=== PATIENT | female | born 1950 | race Caucasian/White ===

== ENCOUNTER 2016-07-01 14:20 | Emergency (ER) | payer MEDICARE ==
[~2016-07-01] VITALS: Ht 149.9 cm; Wt 83.9 kg
[~2016-07-01 14:20] MED LIST: ACYC800T PO; ALBU8.5H2 IH; AMOX1TAB63 PO; BSP10T PO; CEFU250T PO; CHOLESTEROL; COZAAR PO; CPR500T PO; CYCL10TA9 PO; DOXY100C2; DOXY100C2 PO; DUONEB INH; EZET1TAB15 PO; FLUT1DIS27 IH; HYDR-1231 PO; HYDR-34 PO; HYDR-757 PO; HYDR1TAB PO; HYDR1TAB8 OP; IPRA3AMP19 IH; IRBE75TA31; LACT1CAP8 PO; LEVO750T6 PO; LISI-594 PO; LISINOPRIL PO; LVF500T PO; METF-380 PO; METF500T4 PO; METH4TAB PO; METR500T PO; MNTL10T PO; MPR22T TOP; MTF500T; MTF500T PO; PIRO-9; POLY17PO23 PO; PRD10T PO; PRD20T PO; PREMARIN; RABE20TA PO; RT-COMBINH INH; SERT100T PO; SERT100T8 PO; SITA1TAB6 PO; SRTR100T PO; TRAM50TA2 PO
--- OUTSIDE RECORDS SUMMARY | 2016-07-01 14:26 | XMS REPORT | Continuity of Care Document ---
Author Author [facility] Organization [facility] Address Unknown Phone Unavailable Care Team Providers Care Rotating Equipment Specialist Name Role Phone Dp, [facility] PCP [phone] Source Comments Some departments are not documenting in the electronic medical record. If you do not see the information that you expected, contact Release of Information in the Health Information Management department at [phone] for further assistance in locating additional records.[facility] Active Allergies and Adverse Reactions Allergen Noted Date Severity Reactions Comments Aspirin 11/16/2009 Sulfa (Sulfonamide 11/16/2009 Antibiotics) Current Medications Prescription Sig. Disp. Refills Start End Date Status Date SERTRALINE HCL (ZOLOFT Take 200 mg by mouth. Active PO) FLUTICASONE/SALMETEROL Inhale 50 mcg by mouth Active (ADVAIR DISKUS IN) Twice Daily. SITAGLIPTIN Take 500 mg by mouth. Active PHOS/METFORMIN HCL (JANUMET PO) losartan (COZAAR) 25 mg Take 100 mg by mouth Active tablet Daily. montelukast (SINGULAIR) Take 1 Tab by mouth Daily 30 Tab 0 11/20/19 Active 10 mg tablet as needed. as directed 10 lisinopril (PRINIVIL; Take 1 Tab by mouth 30 Tab 0 11/20/19 Active ZESTRIL) 20 mg tablet Daily. 10 Active Problems Problem Noted Date Adjustment disorder with depressed mood 11/19/2009 Major depression, recurrent (HCC) 11/19/2009 Social History Tobacco Use Types Packs/Day Years Used Date Never Smoker Alcohol Use Drinks/Week oz/Week Comments No Last Filed Vital Signs Vital Sign Reading Time Taken Blood Pressure 136/79 02/23/2014 2:06 PM CDT Pulse 77 02/23/2014 2:06 PM CDT Temperature 37.1 C (98.8 F) 02/23/2014 2:06 PM CDT Respiratory Rate - - Height 1.499 m (4' 11") 11/16/2009 9:15 PM CDT Weight 92.08 kg (203 lb) 11/16/2009 9:15 PM CDT Body Mass Index 40.98 11/16/2009 9:15 PM CDT Oxygen Saturation 96% 02/23/2014 2:28 PM CDT Plan of Care Health Maintenance Due Date Last Done Comments Physical (Comprehensive) 02/05/1956 Exam Pertussis Vaccine 02/05/1960 Tetanus Vaccine 1966 Breast Cancer Screening 1989 Colorectal Cancer 1999 Screening Shingles Vaccine 2009 Osteoporosis Screening 2014 Prevnar/Pneumovax (#1) 2014 Influenza Vaccine 02/13/2016 Results from Last 3 Months Not on file
[2016-07-01] MEDS ORDERED: METO-333 (14:43)
[2016-07-01] MEDS ORDERED: PRIM50TA (14:43)
[2016-07-01] MEDS ORDERED: DOXA8TAB73 (14:43)
[2016-07-01] MEDS ORDERED: LOSA1TAB69 (14:43)
--- NOTE | 2016-07-01 15:04 | ED Cough/URI ---
General Chief Complaint: Cough/Cold/Flu Symptoms Stated Complaint: FLU SYMPTOMS Nursing Triage Note: PT TO ED 9 W/ C/O FLU LIKE SYMPTOMS ONSET 06/26, WORSE TODAY. NO OTHER C/O VOICED Source: patient Exam Limitations: no limitations History of Present Illness Time seen by provider: 15:03 Initial Comments 66-year-old female patient presents to the emergency department for complaints of flulike symptoms beginning 06/26/16. Patient reports over the last 1-2 days she has noticed increased cough, rhinorrhea, sneezing, watery eyes, body aches, and increased generalized malaise. Does report intermittent nausea and vomiting. Denies diarrhea, abdominal pain, urinary symptoms. Woke up with 2 fever blisters on the lower lip. Timing/Duration: getting worse, other (06/26/16) Severity/Quality: productive cough Prior Episodes/Possible Cause: no prior episodes Modifying Factors: Worse With Coughing Allergies and Home Medications Allergies Coded Allergies: aspirin (Unverified Allergy, Mild, 04/01/09) Uncoded Allergies: [id number] (SULFA (SULFONAMIDE ANTIBIOTICS)) (Allergy, Mild, 04/01/09) Home Medications Acyclovir 400 Mg Tablet #30 400 MG PO TID x7-10 days Prescribed by: GABY NOLAN on 07/01/16 1620 Doxazosin Mesylate 8 Mg Tablet #90 (Reported) Fluconazole 100 Mg Tablet #7 100 MG PO DAILY Prescribed by: GABY NOLAN on 07/01/16 1609 Losartan/Hydrochlorothiazide 1 Each Tablet #90 (Reported) Metoprolol Tartrate 25 Mg Tablet #90 (Reported) Ondansetron 8 Mg Tab.rapdis #10 8 MG PO Q6H PRN PRN NAUSEA/VOMITING Prescribed by: GABY NOLAN on 07/01/16 1609 Oseltamivir Phosphate 75 Mg Cap #10 75 MG PO BID Prescribed by: GABY NOLAN on 07/01/16 1609 Primidone 50 Mg Tablet #90 (Reported) Promethazine HCl/Codeine 118 Ml Syrup #120 5 ML PO Q6H PRN PRN COUGH Prescribed by: GABY NOLAN on 07/01/16 1609 Constitutional: see HPI chillsNo fever, malaise EENTM: nose congestion see HPI tearingNo throat pain Respiratory: coughNo orthopnea, phlegmNo short of breath, No stridor, No wheezing Cardiovascular: no symptoms reported Gastrointestinal: see HPINo abdominal pain, No constipation, No diarrhea, loss of appetite nausea vomiting Genitourinary: No decreased output, No discharge, No dysuria, No frequency, No hematuria, No pain Musculoskeletal: see HPI Skin: no symptoms reported Psychiatric/Neurological: No Symptoms Reported All Other Systems Reviewed Negative Unless Noted: Yes (Negative excepted noted.) Past Ozxuips-Ayptmm-Muigog Hx Patient Social History Alcohol Use: Denies Use Recreational Drug Use: No Smoking Status: Never a Smoker Recent Foreign Travel: No Contact w/Someone Who Travel: No Recent Infectious Disease Expo: No Recent Hopitalizations: Yes (RAN OVER BY AUTO AT AGE 3 -- ) Physical Abuse Screen: No Sexual Abuse: No Immunizations Up To Date Date of Pneumonia Vaccine: Mar 17, 2010 Surgeries HX Surgeries: Yes (SPLEENECTOMY, LUMPECTOMY R-BREAST) Surgeries: Gallbladder, Hysterectomy, Orthopedic Respiratory Hx Respiratory Disorders: Yes Respiratory Disorders: COPD, Emphysema Cardiovascular Hx Cardiac Disorders: Yes (TOOK REDUX, SETTLED CASE STATED THAT PT. HAD MITRAL VALVE LEAKAGE) Neurological Hx Neurological Disorders: No Genitourinary Hx Genitourinary Disorders: Yes Genitourinary Disorders: UTI-Chronic Gastrointestinal Hx Gastrointestinal Disorders: No Musculoskeletal Hx Musculoskeletal Disorders: Yes Musculoskeletal Disorders: Arthritis Endocrine Hx Endocrine Disorders: Yes Endocrine Disorders: Diabetes, Non-Insulin dep HEENT HX ENT Disorders: No Cancer Hx Cancer: No Psychosocial Hx Psychiatric Problems: Yes Behavioral Health Disorders: Anxiety, PTSD, Depression Integumentary HX Skin/Integumentary Disorder: No Skin/Integumentary Disorders: Recent Skin Changes Blood Transfusions Hx Blood Disorders: No Adverse Reaction to a Blood Tr: Yes (HAD "BLOTHCHES ALL OVER") Reviewed Nursing Assessment Reviewed/Agree w Nursing PMH: Yes Family Medical History Significant Family History: No Pertinent Family Hx Physical Exam Vital Signs Vital Sign - Last 12Hours 07/01/16 14:32 Temp 97.2 Pulse 84 Resp 20 B/P 150/87 Pulse Ox 96 O2 Delivery Room Air Capillary Refill : Less Than 3 Seconds General Appearance: WD/WN no apparent distress HEENT: pharyngeal erythema other (bilateral conjunctiva injected, tearing bilaterally, nasal congestion, rhinorrhea, and pharyngeal erythema.) Neck: non-tender full range of motion supple lymphadenopathy (R) lymphadenopathy (L) Respiratory: no respiratory distress wheezing (occasional faint wheezing on expiration (patient states "I normally wheeze really bad. I have COPD and emphysema") expiration Cardiovascular: regular rate, rhythm no edema no murmur Gastrointestinal: normal bowel sounds non tender soft no organomegalyNo distended Extremities: no pedal edema no calf tenderness normal capillary refill Neurologic/Psychiatric: alert normal mood/affect oriented x 3 Skin: normal color warm/dry Progress/Results/Core Measures Results/Orders Lab Results Laboratory Tests Test 07/01/16 15:24 Range/Units Urine Bacteria FEW H /HPF Urine Bilirubin NEGATIVE NEGATIVE Urine Casts NONE /LPF Urine Clarity VERY CLOUDY H Urine Color YELLOW Urine Crystals NONE /LPF Urine Culture Indicated NO Urine Glucose (UA) 2+ H NEGATIVE Urine Ketones 3+ H NEGATIVE Urine Leukocyte Esterase 3+ H NEGATIVE Urine Mucus NEGATIVE /LPF Urine Nitrite NEGATIVE NEGATIVE Urine Protein 2+ H NEGATIVE Urine RBC NONE /HPF Urine RBC (Auto) 1+ H NEGATIVE Urine Specific [place] 1.025 H 1.016-1.022 Urine Squamous Epithelial Cells >50 H /HPF Urine Urobilinogen 1 NORMAL MG/DL Urine WBC 25-50 H /HPF Urine Yeast LARGE H /HPF Urine pH 5 5-9 Micro Results Microbiology 07/01/16 Influenza Types A,B Antigen (JORGITO) - Final, Complete My Orders Orders-GABY NOLAN Ua Culture If Indicated (07/01/16 15:13) Promethazine/ Codeine Syrup (Phenergan W (07/01/16 15:13) Vital Signs/I&O Vital Sign - Last 12Hours 07/01/16 14:32 Temp 97.2 Pulse 84 Resp 20 B/P 150/87 Pulse Ox 96 O2 Delivery Room Air Blood Pressure Mean: 108 Departure Communication Progress Notes Laboratory and diagnostic study findings discussed with the patient. Patient reports feeling much better with medications given. Plan for discharge to home. Patient instructed to follow-up with her primary care physician at [facility] this week for recheck. She is to call for appointment time. All return precautions were discussed with the patient as described in the discharge instructions of this report. Patient voices understanding and agrees with the treatment plan. Impression Impression: Primary Impression: Influenza-like symptoms Additional Impressions: Marisa UTI Dehydration Herpes simplex virus infection Disposition: 01 HOME, SELF-CARE Condition: Improved Departure-Patient Inst. Decision time for Depature: 16:04 Referrals: [facility] (PCP/Family) Primary Care Physician Patient Instructions: Dehydration, Adult (DC), Flu, Adult (DC) Add. Discharge Instructions: All discharge instructions reviewed with patient and/or family. Voiced understanding. Medications as directed. Tylenol over the counter as directed for pain or fever. Motrin 800 mg by mouth every 8 hours as needed for pain or fever. Push fluids. Clear liquid diet until symptoms improve, then increase diet slowly to a bland, low-fat diet. Follow-up with your family practitioner this week for recheck. Call tomorrow morning for appointment time. Return to the emergency department for worsened cough, pain, shortness of air, dizziness, vomiting, vomiting blood, rectal bleeding, black stools, decreased urination, fever, or any other concerns. Scripts Acyclovir 400 Mg [id number] Mg PO TID #30 TAB Ref 0 x7-10 days Prov:GABY NOLAN 07/01/16 Promethazine HCl/Codeine (Promethazine-Codeine Syrup)118 Ml Syrup5 Ml PO Q6H PRN COUGH #120 ML Ref 0 Prov:GABY NOLAN 07/01/16 Fluconazole 100 Mg [id number] Mg PO DAILY #7 TAB Ref 0 Prov:GABY NOLAN 07/01/16 Oseltamivir Phosphate (Tamiflu)75 Mg Cap75 Mg PO BID #10 CAP Ref 0 Prov:GABY NOLAN 07/01/16 Ondansetron (Ondansetron Odt)8 Mg Tab.rapdis8 Mg PO Q6H PRN NAUSEA/VOMITING #10 TAB Ref 0 Prov:GABY NOLAN 07/01/16 GABY NOLAN Jul 01, 2016 15:04
[2016-07-01] MEDS ORDERED: PROMETHAZINE/ CODEINE SYRUP 5 ML UDC PO STA (15:13)
[2016-07-01 15:42] LABS: BILIRUBIN,URINE NEGATIVE (NEGATIVE); KETONES,URINE 3+ (NEGATIVE); LEUKOCYTE ESTERASE ,URINE 3+ (NEGATIVE); NITRITE,URINE NEGATIVE (NEGATIVE); PH,URINE 5 (5-9); PROTEIN,URINE 2+ (NEGATIVE); UROBILINOGEN,URINE 1 MG/DL (NORMAL)
[2016-07-01 15:57] LABS: SQUAMOUS EPITHELIAL CELL,UR >50 /HPF; WBC,URINE 25-50 /HPF
[2016-07-01 15:58] LABS: YEAST,URINE LARGE /HPF
[2016-07-01] MEDS ORDERED: ONDA8TAB13 PO (16:09)
[2016-07-01] MEDS ORDERED: OSLT75C PO (16:09)
[2016-07-01] MEDS ORDERED: FLUC100T6 PO (16:09)
[2016-07-01] MEDS ORDERED: CODE118S2 PO (16:09)
[2016-07-01 16:20] VITALS: BP 147/85
[2016-07-01] MEDS ORDERED: ACYC400T PO (16:20)
== END 2016-07-01 16:20 | disposition home or self-care (01) ==
LOC: EDUNIT# 14:20 → ER 14:22
DX: J11.1 Influenza due to unidentified influenza virus with other respiratory manifestations (principal); B37.41 Candidal cystitis and urethritis; E86.0 Dehydration; B00.9 Herpesviral infection, unspecified; I10 Essential (primary) hypertension; E11.9 Type 2 diabetes mellitus without complications; J44.9 Chronic obstructive pulmonary disease, unspecified; Z79.899 Other long term (current) drug therapy
CPT/HCPCS: 81000; 87804; 99283

== ENCOUNTER → 2016-11-12 | Outpatient (CLI) | payer MEDICARE ==
[~2016-11-12] MED LIST changes: +ACYC400T PO; +CODE118S2 PO; +DOXA8TAB73; +FLUC100T6 PO; +LOSA1TAB69; +METO-333; +ONDA8TAB13 PO; +OSLT75C PO; +PRIM50TA
[2016-11-12 12:16] LABS: BASOPHILS # (AUTO) 0.1 10^3/uL (0.0-0.1); BASOPHILS % (AUTO) 1 % (0-10); EOSINOPHILS # (AUTO) 0.6 10^3/uL (0.0-0.3); EOSINOPHILS % (AUTO) 7 % (0-10); LYMPHOCYTES # (AUTO) 3.5 X 10^3 (1.0-4.0); LYMPHOCYTES % (AUTO) 40 % (12-44); MEAN CORPUSCULAR HEMOGLOBIN 28 PG (25-34); MEAN CORPUSCULAR HGB CONC 33 G/DL (32-36); MEAN CORPUSCULAR VOLUME 85 FL (80-99); MEAN PLATELET VOLUME 10.9 FL (7.4-10.4); MONOCYTES # (AUTO) 0.6 X 10^3 (0.0-1.0); MONOCYTES % (AUTO) 7 % (0-12); NEUTROPHILS % (AUTO) 45 % (42-75); PLATELET COUNT 283 10^3/uL (130-400); RED BLOOD COUNT 5.24 10^6/uL (4.35-5.85); RED CELL DISTRIBUTION WIDTH 12.9 % (10.0-14.5); WHITE BLOOD COUNT 8.8 10^3/uL (4.3-11.0)
[2016-11-12 12:44] LABS: ALBUMIN 4.2 G/DL (3.2-4.5); BILIRUBIN,TOTAL 0.8 MG/DL (0.1-1.0); CALCIUM 9.5 MG/DL (8.5-10.1); CREATININE SERUM 1.03 MG/DL (0.60-1.30); MAGNESIUM 1.9 MG/DL (1.8-2.4); TOTAL PROTEIN 7.8 G/DL (6.4-8.2)
[2016-11-12 12:54] LABS: ERYTHROCYTE SEDIMENTATION RATE 16 MM/HR (0-30)
[2016-11-12 13:03] LABS: THYROID STIMULATING HORMONE 1.73 UIU/ML (0.35-4.94)
== END ==
LOC: LAB 11:49
PROVIDERS: ATTEND Internal Medicine Cardiovascular Disease
DX: R07.89 Other chest pain (principal); R55 Syncope and collapse; R06.02 Shortness of breath
CPT/HCPCS: 36415; 80053; 80061; 83735; 84443; 85025; 85652

== ENCOUNTER → 2016-11-17 | Outpatient (CLI) | payer MEDICARE ==
[2016-11-17] VITALS (39 sets, daily range): BP systolic 114–147; BP diastolic 67–90
[~2016-11-17] VITALS: Ht 149.9 cm; Wt 77.1 kg
[~2016-11-17] MED LIST changes: +ATROPINE INJECTION 1 MG/10 ML SYR (ABBOTT) ONE; +NS IV 1000 ML 1,000 ML IV SCH; +NS IV 1000 ML 1,000 ML ONE
== END ==
LOC: CARD 07:57
PROVIDERS: ATTEND Nurse Practitioner Family
DX: I20.9 Angina pectoris, unspecified (principal); R42 Dizziness and giddiness; R55 Syncope and collapse; R53.83 Other fatigue; R06.02 Shortness of breath
CPT/HCPCS: 93660

== ENCOUNTER → 2016-11-19 | Outpatient (CLI) | payer MEDICARE ==
[~2016-11-19] VITALS: Ht 149.9 cm; Wt 77.1 kg
[~2016-11-19] MED LIST changes: -ATROPINE INJECTION 1 MG/10 ML SYR (ABBOTT) ONE; -NS IV 1000 ML 1,000 ML IV SCH; -NS IV 1000 ML 1,000 ML ONE; +REGADENOSON 0.4 MG/5 ML SYR (LEXISCAN) IV ONE
[2016-11-19] MEDS: CATHETER FLUSH 10 ML SYR IV PRN ×2 (08:04→09:08)
[2016-11-19 09:07] VITALS: BP 143/90
--- NOTE | 2016-11-19 18:40 | STRESS TEST ---
DATE OF SERVICE: 11/19/2016 RESTING AND POST REGADENOSON TECHNETIUM 99M TETROFOSMIN SPECT CT IMAGING ORDERING PHYSICIAN: Dr. Tejada. PRIMARY PHYSICIAN: ILIA Kim CLINICAL DIAGNOSIS: Near syncope, chest discomfort, shortness of breath. Baseline images were carried out after injection of 10.63 mCi of technetium 99m tetrofosmin. This was followed by 0.4 mg regadenoson and 32.2 mCi of technetium 99m Tetrofosmin for stress imaging. The electrocardiogram showed sinus rhythm, and the electrocardiogram did not change significantly with the regadenoson infusion. The patient tolerated the procedure well. Review of images at rest and following stress does not indicate any significant perfusion defects consistent with any significant myocardial ischemia or infarction. Gated images show normal global left ventricular systolic function with normal regional wall motion. Left ventricular ejection fraction is calculated to be 63%. Left ventricular end-diastolic volume is 42 mL. CONCLUSIONS: 1. No evidence of significant myocardial ischemia or infarction on this study. 2. Normal regional wall motion. 3. Normal global left ventricular systolic function with a calculated ejection fraction of 63%. 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
== END ==
LOC: CARD 07:52
PROVIDERS: ATTEND Internal Medicine Cardiovascular Disease
DX: R55 Syncope and collapse (principal); R07.89 Other chest pain; R06.02 Shortness of breath
CPT/HCPCS: 78452; 93017

== ENCOUNTER → 2016-11-24 | Outpatient (CLI) | payer MEDICARE ==
[~2016-11-24] MED LIST changes: -REGADENOSON 0.4 MG/5 ML SYR (LEXISCAN) IV ONE
== END ==
LOC: CARD 11:51
PROVIDERS: ATTEND Internal Medicine Cardiovascular Disease
DX: R06.02 Shortness of breath (principal); R07.89 Other chest pain; R55 Syncope and collapse
CPT/HCPCS: 93306

== ENCOUNTER 2018-02-20 10:01 | Emergency (ER) | payer MEDICARE ==
[~2018-02-20] VITALS: Ht 149.9 cm; Wt 86.2 kg
[~2018-02-20 10:01] MED LIST changes: -CODE118S2 PO; +CODE118S4 PO; +HYDR-4226 PO; -HYDR-757 PO; +LOSA1TAB20; -LOSA1TAB69; +METF-397 PO; -METF500T4 PO
[2018-02-20 10:27] LABS: BILIRUBIN,URINE NEGATIVE (NEGATIVE); CLARITY,URINE VERY CLOUDY; COLOR,URINE YELLOW; GLUCOSE, URINE (UA) NEGATIVE (NEGATIVE); KETONES,URINE 1+ (NEGATIVE); LEUKOCYTE ESTERASE ,URINE 3+ (NEGATIVE); NITRITE,URINE NEGATIVE (NEGATIVE); PH,URINE 5 (5-9); PROTEIN,URINE 2+ (NEGATIVE); UROBILINOGEN,URINE NORMAL (NORMAL)
--- NOTE | 2018-02-20 10:38 | ED Back Pain ---
General Chief Complaint: Back Problems Stated Complaint: BACK PAIN Source of Information: Patient, Family Exam Limitations: Other (Hx Alzheimer's) History of Present Illness Date Seen by Provider: Feb 20, 2018 Time Seen by Provider: 10:30 Initial Comments Patient presents to ER by private conveyance with chief complaint of one to 2 days progressively worsening back pain on her low thoracic back. Doesn't localize to one side 80 other nor does it radiate. It is worse with movement better with a hydrocodone she borrowed from her . Tylenol Motrin don't help. She has a history of COPD and has a nebulizer but she's not been using breathing treatments recently. She does not feel short of breath wheezing or having more productive cough and usual. She does smoke. Allergies and Home Medications Allergies Coded Allergies: aspirin (Unverified Allergy, Mild, 04/01/09) Uncoded Allergies: [id number] (SULFA (SULFONAMIDE ANTIBIOTICS)) (Allergy, Mild, 04/01/09) Home Medications Acyclovir 400 Mg Tablet, 400 MG PO TID x7-10 days Prescribed by: GABY NOLAN on 07/01/16 1620 Fluconazole 100 Mg Tablet, 100 MG PO DAILY Prescribed by: GABY NOLAN on 07/01/16 1609 Ondansetron 8 Mg Tab.rapdis, 8 MG PO Q6H PRN for NAUSEA/VOMITING Prescribed by: GABY NOLAN on 07/01/16 1609 Oseltamivir Phosphate 75 Mg Cap, 75 MG PO BID Prescribed by: GABY NOLAN on 07/01/16 1609 Promethazine HCl/Codeine 118 Ml Syrup, 5 ML PO Q6H PRN for COUGH Prescribed by: GABY NOLAN on 07/01/16 1609 Patient Home Medication List Home Medication List Reviewed: Yes Review of Systems Constitutional: No chills, No diaphoresis EENTM: No ear pain, No blurred vision Respiratory: No cough, No short of breath Cardiovascular: No chest pain, No palpitations Gastrointestinal: No abdominal pain, No constipation, No nausea Genitourinary: No discharge; dysuria Musculoskeletal: see HPI, back pain Skin: No pruritus, No rash Past Uuvdyvc-Gqnetg-Xewfar Hx Patient Social History Recent Foreign Travel: No Contact w/Someone Who Travel: No Recent Hopitalizations: Yes (RAN OVER BY AUTO AT AGE 3 -- ) Immunizations Up To Date Date of Pneumonia Vaccine: Mar 17, 2010 Past Medical History Gallbladder, Hysterectomy, Orthopedic Asthma UTI-Chronic Arthritis Diabetes, Non-Insulin dep Anxiety, PTSD, Depression Recent Skin Changes Adverse Reaction/Blood Tranf: Yes (HAD "BLOTHCHES ALL OVER") Family Medical History No Pertinent Family Hx Physical Exam Vital Signs Vital Signs - First Documented 02/20/18 11:07 Temp 98.9 Pulse 77 Resp 20 B/P (MAP) 144/93 (110) Pulse Ox 96 O2 Delivery Room Air Capillary Refill : Height, Weight, BMI Height: 4'11.00" Weight: 170lbs. 0.0oz. 77.994759oz; 34.3 BMI Method:Stated General Appearance: No Apparent Distress, WD/WN HEENT: PERRL/EOMI, Pharynx Normal, Moist Mucous Membranes Cardiovascular: Regular Rate, Rhythm, Normal Peripheral Pulses Respiratory: No Accessory Muscle Use, No Respiratory Distress Back: Normal Inspection, No CVA Tenderness, No Vertebral Tenderness Extremity: Normal Capillary Refill, Normal Inspection Neurologic/Psychiatric: Alert, Oriented x3 Progress/Results/Core Measures Results/Orders Lab Results Laboratory Tests Test 02/20/18 10:00 02/20/18 11:06 02/20/18 11:20 Range/Units Urine Color YELLOW YELLOW Urine Clarity VERY CLOUDY H VERY CLOUDY H Urine pH 5 5 5-9 Urine Specific [place] 1.025 H 1.025 H 1.016-1.022 Urine Protein 2+ H 1+ H NEGATIVE Urine Glucose (UA) NEGATIVE NEGATIVE NEGATIVE Urine Ketones 1+ H 1+ H NEGATIVE Urine Nitrite NEGATIVE NEGATIVE NEGATIVE Urine Bilirubin NEGATIVE NEGATIVE NEGATIVE Urine Urobilinogen NORMAL NORMAL NORMAL MG/DL Urine Leukocyte Esterase 3+ H 2+ H NEGATIVE Urine RBC (Auto) 2+ H 1+ H NEGATIVE Urine RBC 0-2 0-2 /HPF Urine WBC 25-50 H 10-25 H /HPF Urine Squamous Epithelial Cells 10-25 H 2-5 /HPF Urine Crystals NONE NONE /LPF Urine Bacteria LARGE H NEGATIVE /HPF Urine Casts NONE NONE /LPF Urine Mucus NEGATIVE SMALL H /LPF Urine Culture Indicated YES YES White Blood Count 8.2 4.3-11.0 10^3/uL Red Blood Count 4.51 4.35-5.85 10^6/uL Hemoglobin 13.3 11.5-16.0 G/DL Hematocrit 41 35-52 % Mean Corpuscular Volume 92 80-99 FL Mean Corpuscular Hemoglobin 30 25-34 PG Mean Corpuscular Hemoglobin Concent 32 32-36 G/DL Red Cell Distribution Width 14.5 10.0-14.5 % Platelet Count 413 H 130-400 10^3/uL Mean Platelet Volume 10.2 7.4-10.4 FL Neutrophils (%) (Auto) 55 42-75 % Lymphocytes (%) (Auto) 30 12-44 % Monocytes (%) (Auto) 9 0-12 % Eosinophils (%) (Auto) 6 0-10 % Basophils (%) (Auto) 1 0-10 % Neutrophils # (Auto) 4.5 1.8-7.8 X 10^3 Lymphocytes # (Auto) 2.4 1.0-4.0 X 10^3 Monocytes # (Auto) 0.8 0.0-1.0 X 10^3 Eosinophils # (Auto) 0.5 H 0.0-0.3 10^3/uL Basophils # (Auto) 0.1 0.0-0.1 10^3/uL Sodium Level 141 135-145 MMOL/L Potassium Level 3.8 3.6-5.0 MMOL/L Chloride Level 106 98-107 MMOL/L Carbon Dioxide Level 22 21-32 MMOL/L Anion Gap 13 5-14 MMOL/L Blood Urea Nitrogen 8 7-18 MG/DL Creatinine 0.95 0.60-1.30 MG/DL Estimat Glomerular Filtration Rate 58 BUN/Creatinine Ratio 8 Glucose Level 124 H 70-105 MG/DL Calcium Level 9.9 8.5-10.1 MG/DL Corrected Calcium 9.7 8.5-10.1 MG/DL Total Bilirubin 0.9 0.1-1.0 MG/DL Aspartate Amino Transf (AST/SGOT) 21 5-34 U/L Alanine Aminotransferase (ALT/SGPT) 16 0-55 U/L Alkaline Phosphatase 90 40-136 U/L C-Reactive Protein High Sensitivity 2.05 H 0.00-0.50 MG/DL Total Protein 8.0 6.4-8.2 GM/DL Albumin 4.2 3.2-4.5 GM/DL My Orders Orders - ZAHIRA HENSON Ua Culture If Indicated (02/20/18 10:15) Albuterol/Ipra Inhalation Soln (Duoneb I (02/20/18 10:45) Chest Pa/Lat (2 View) (02/20/18 10:33) Cbc With Automated Diff (02/20/18 10:33) Comprehensive Metabolic Panel (02/20/18 10:33) Hs C Reactive Protein (02/20/18 10:33) Saline Lock/Iv-Start (02/20/18 10:33) Svn Small Volume Nebulizer (02/20/18 10:33) Urine Culture (02/20/18 10:00) Ua Culture If Indicated (02/20/18 10:55) Urine Culture (02/20/18 11:06) Medications Given in ED Current Medications Medications Dose Ordered Sig/Jose Route Start Time Stop Time Status Last Admin Dose Admin Albuterol/ Ipratropium 3 ml ONCE ONCE INH 02/20/18 10:45 02/20/18 10:47 DC 02/20/18 11:20 3 ML Vital Signs/I&O 02/20/18 02/20/18 11:07 11:22 Temp 98.9 Pulse 77 Resp 20 B/P (MAP) 144/93 (110) Pulse Ox 96 94 O2 Delivery Room Air Room Air Progress Progress Note #1: Time: 10:55 Progress Note Chest x-ray is unrevealing of any infiltrates. The urine specimens very contaminated. We are going to do a straight catheter in and out. Progress Note #2: Time: 12:11 Progress Note Pains at the level of the left lateral thorax. Vertebra are unremarkable. She's having some urinary symptoms as well as she has white blood cells seen on the straight catheter. He did be reasonable to start treating her with antibiotics and have her follow-up with her primary care doctor. We have offered to do further investigation imaging of the back to include a CT without contrast to look for stones or other problems in the back and at this time she's declining wants just pursue antibiotics and then follow up with her doctor if necessary. Diagnostic Imaging Diagonstic Imaging: Xray (2v) Plain Films/CT/US/NM/MRI: chest Comments NAME: ENRIQUE LEWIS Mohinder [facility] REC#: [id number] PT STATUS: REG ER : 1950 PHYSICIAN: ZAHIRA HENSON MD ADMIT DATE: 02/20/18/ER Draft Date of Exam:02/20/18 CHEST PA/LAT (2 VIEW) INDICATION: Chest pain. COMPARISON: 11/15/2015 FINDINGS: Frontal and lateral views of the chest demonstrate clear lungs bilaterally. There is slight hyperinflation likely COPD. The heart is normal. There is no pneumothorax. The osseous structures are age-appropriate. IMPRESSION: Likely COPD without infiltrate. Dictated on workstation # [id number] Dict: 02/20/18 1047 Trans: 02/20/18 1050 TS [id number] Interpreted by: WILBER SAGASTUME Electronically signed by: Reviewed: Reviewed by Me Departure Impression Primary Impression: Back pain Qualified Codes: M54.6 - Pain in thoracic spine Additional Impression: UTI (urinary tract infection) Qualified Codes: N30.00 - Acute cystitis without hematuria Disposition: HOME, SELF-CARE Condition: Stable Departure-Patient Inst. Decision time for Depature: 12:12 Referrals: VREONICA CARY MD (PCP) Primary Care Physician HERMILO VERDUGO (Family) Primary Care Physician Patient Instructions: Acute Cystitis (DC) Add. Discharge Instructions: Drink lots of fluids. Use Tylenol and/or ibuprofen as necessary for your pain. Start taking the antibiotics 1 tablet twice a day for the next week. If not seeing improvement by day 3 or 4 follow up with your doctor. All discharge instructions reviewed with patient and/or family. Voiced understanding. Scripts Nitrofurantoin Macrocrystal (Nitrofurantoin) 100 Mg Capsule 100 MG PO BID for 7 Days, #14 CAP 0 Refills Prov: ZAHIRA HENSON 02/20/18 ZAHIRA HENSON Feb 20, 2018 10:38
[2018-02-20 10:42] LABS: BACTERIA,URINE LARGE /HPF; WBC,URINE 25-50 /HPF
[2018-02-20 10:43] LABS: RBC,URINE 0-2 /HPF
[2018-02-20] MEDS ORDERED: RT-ALBUTEROL/IPRATROPIUM 3 ML (DUONEB) VIAL INH ONE (10:45)
--- NOTE | 2018-02-20 10:51 | Diagnostic Imaging Report ---
INDICATION: Chest pain. COMPARISON: 11/15/2015 FINDINGS: Frontal and lateral views of the chest demonstrate clear lungs bilaterally. There is slight hyperinflation likely COPD. The heart is normal. There is no pneumothorax. The osseous structures are age-appropriate. IMPRESSION: Likely COPD without infiltrate. Dictated by: Dictated on workstation # [id number]
[2018-02-20 11:20] LABS: BILIRUBIN,URINE NEGATIVE (NEGATIVE); CLARITY,URINE VERY CLOUDY; COLOR,URINE YELLOW; GLUCOSE, URINE (UA) NEGATIVE (NEGATIVE); KETONES,URINE 1+ (NEGATIVE); LEUKOCYTE ESTERASE ,URINE 2+ (NEGATIVE); NITRITE,URINE NEGATIVE (NEGATIVE); PH,URINE 5 (5-9); PROTEIN,URINE 1+ (NEGATIVE); UROBILINOGEN,URINE NORMAL (NORMAL)
[2018-02-20 11:27] LABS: BASOPHILS # (AUTO) 0.1 10^3/uL (0.0-0.1); BASOPHILS % (AUTO) 1 % (0-10); EOSINOPHILS # (AUTO) 0.5 10^3/uL (0.0-0.3); EOSINOPHILS % (AUTO) 6 % (0-10); HEMATOCRIT 41 % (35-52); HEMOGLOBIN 13.3 G/DL (11.5-16.0); LYMPHOCYTES # (AUTO) 2.4 X 10^3 (1.0-4.0); LYMPHOCYTES % (AUTO) 30 % (12-44); MEAN CORPUSCULAR HEMOGLOBIN 30 PG (25-34); MEAN CORPUSCULAR HGB CONC 32 G/DL (32-36); MEAN CORPUSCULAR VOLUME 92 FL (80-99); MEAN PLATELET VOLUME 10.2 FL (7.4-10.4); MONOCYTES # (AUTO) 0.8 X 10^3 (0.0-1.0); MONOCYTES % (AUTO) 9 % (0-12); NEUTROPHILS # (AUTO) 4.5 X 10^3 (1.8-7.8); NEUTROPHILS % (AUTO) 55 % (42-75); PLATELET COUNT 413 10^3/uL (130-400); RED BLOOD COUNT 4.51 10^6/uL (4.35-5.85); RED CELL DISTRIBUTION WIDTH 14.5 % (10.0-14.5); WHITE BLOOD COUNT 8.2 10^3/uL (4.3-11.0)
[2018-02-20 11:38] LABS: BACTERIA,URINE NEGATIVE /HPF; RBC,URINE 0-2 /HPF
[2018-02-20 11:46] LABS: ALBUMIN 4.2 GM/DL (3.2-4.5); BILIRUBIN,TOTAL 0.9 MG/DL (0.1-1.0); CALCIUM 9.9 MG/DL (8.5-10.1); CREATININE SERUM 0.95 MG/DL (0.60-1.30); POTASSIUM 3.8 MMOL/L (3.6-5.0)
[2018-02-20] MEDS ORDERED: NITR100C PO (12:13)
[2018-02-20 12:20] VITALS: BP 149/70
[2018-02-23] MEDS ORDERED: CIPR-225 PO (12:21)
== END 2018-02-20 12:21 | disposition home or self-care (01) ==
LOC: EDUNIT# 10:01 → ER 10:02
DX: M54.6 Pain in thoracic spine (principal); N39.0 Urinary tract infection, site not specified; J44.9 Chronic obstructive pulmonary disease, unspecified; E11.9 Type 2 diabetes mellitus without complications; F41.9 Anxiety disorder, unspecified; F43.10 Post-traumatic stress disorder, unspecified; F32.9 Major depressive disorder, single episode, unspecified; Z87.440 Personal history of urinary (tract) infections; Z88.6 Allergy status to analgesic agent; Z90.710 Acquired absence of both cervix and uterus
CPT/HCPCS: 36415; 51701; 71046; 80053; 81000; 85025; 86141; 87077; 87088; 87186; 94640

== ENCOUNTER 2019-01-20 13:19 | Emergency (ER) | payer OTHER, MEDICARE ==
[~2019-01-20] VITALS: Ht 149.9 cm; Wt 77.1 kg
[~2019-01-20 13:19] MED LIST changes: +CIPR-225 PO; +NITR100C PO
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
[2019-01-20] MEDS ORDERED: ACETAMINOPHEN 500 MG TAB (TYLENOL) PO STA (14:41)
--- OUTSIDE RECORDS SUMMARY | 2019-01-20 14:45 | XMS REPORT | Clinical Summary ---
Author Author [facility] Organization [facility] Address Unknown Phone Unavailable Care Team Providers Care Spanish Professor Name Role Phone Tracee Bhagat RN Unavailable Unavailable Dptheresa, [facility] PCP Source Comments Some departments are not documenting in the electronic medical record. If you d o not see the information that you expected, contact Release of Information in [facility] Information Management department at [phone] for further assistan ce in locating additional records.[facility] Allergies Comments Active Allergy Reactions Severity Noted Date Aspirin 11/16/2009 Sulfa (Sulfonamide 11/16/2009 Antibiotics) Medications End Date Status Medication Sig Dispensed Refills Start Date Active SERTRALINE HCL (ZOLOFT Take 200 mg 0 PO) by mouth. Active FLUTICASONE/SALMETEROL Inhale 50 mcg 0 (ADVAIR DISKUS IN) by mouth Twice Daily. Active SITAGLIPTIN Take 500 mg 0 PHOS/METFORMIN HCL by mouth. (JANUMET PO) Active losartan (COZAAR) 25 mg Take 100 mg 0 tablet by mouth Daily. Active montelukast (SINGULAIR) Take 1 Tab by 30 Tab 0 10 mg tablet mouth Daily 0 as needed. as directed Active lisinopril (PRINIVIL; Take 1 Tab by 30 Tab 0 ZESTRIL) 20 mg tablet mouth Daily. 0 Active Problems Problem Noted Date Adjustment disorder with depressed mood 11/19/2009 Major depression, recurrent 11/19/2009 Family History Relation Name Status Comments Father Mother Alive Social History Date Tobacco Use Types Packs/Day Years Used Never Smoker Drinks/Week oz/Week Comments Alcohol Use No Sex Assigned at Date Recorded Not on file Industry Job Start Date Occupation Not on file Not on file Not on file Travel End Travel History Travel Start No recent travel history available. Last Filed Vital Signs Reading Time Taken Comments Vital Sign 136/79 02/23/2014 2:06 PM CDT Blood Pressure 77 02/23/2014 2:06 PM CDT Pulse 37.1 C (98.8 F) 02/23/2014 2:06 PM CDT Temperature - - Respiratory Rate 96% 02/23/2014 2:28 PM CDT Oxygen Saturation - - Inhaled Oxygen Concentration 92.1 kg (203 lb) 11/16/2009 9:15 PM CDT Weight 149.9 cm (4' 11") 11/16/2009 9:15 PM CDT Height 41 11/16/2009 9:15 PM CDT Body Mass Index Plan of Treatment Health Maintenance Due Date Last Done Comments HEPATITIS C SCREENING 1949 PHYSICAL (COMPREHENSIVE) 02/05/1956 EXAM DTAP/TDAP VACCINES (1 - 1967 Tdap) BREAST CANCER SCREENING 1989 COLORECTAL CANCER 1999 SCREENING SHINGLES RECOMBINANT 1999 VACCINE (1 of 2) OSTEOPOROSIS 2014 SCREENING/MONITORING PNEUMONIA (PCV13/PPSV23) 2014 VACCINES (1 of 2 - PCV13) INFLUENZA VACCINE 03/14/2019 Results Not on filefrom Last 3 Months Insurance Type Payer Benefit Subscriber ID Effective Phone Address Plan / Dates Group Medicare MEDICARE MEDICARE xxxxxxxxxx 2005- PART A AND Present B Advance Directives Patient Trip Rider Explanation Type Date Recorded Advance 02/23/2014 3:17 PM Directive/DPOA
--- OUTSIDE RECORDS SUMMARY | 2019-01-20 14:46 | XMS REPORT ---
Author Author Migration, Doctor Organization [facility] Address Unknown Phone Unavailable Care Team Providers Care Edger Feeder Name Role Phone Migration, Doctor Unavailable Unavailable PROBLEMS Type Condition ICD9-CM Code ONO38-IP Code Onset Dates Condition Status SNOMED Code Problem Anxiety F41.9 Active 93530869 Problem Flat foot [pes planus] (acquired), right foot M21.41 Active 31758199 Problem Alzheimers disease with early onset G30.0 Active 6775915 Problem Diabetes E11.9 Active 346417144 Problem Moderate episode of recurrent major depressive disorder F33.1 Active 842555199 Problem Uncontrolled type 2 diabetes mellitus without complication, without long- term current use of insulin E11.65 Active 799237569 Problem Arthritis M19.90 Active 3416027 Problem Diabetic polyneuropathy associated with type 2 diabetes mellitus E11.42 Active 26049892 Problem Type 2 diabetes mellitus with unspecified diabetic retinopathy without macular edema E11.319 Active 756728067 Problem Seasonal allergies J30.2 Active 312574810 Problem Dementia in other diseases classified elsewhere with behavioral disturbance F02.81 Active 451460040 Problem Presence of right artificial hip joint Z96.641 Active 375062445 Problem Type 2 diabetes mellitus with hyperglycemia E11.65 Active 062232288370193 Problem Other chronic pain G89.29 Active 20493915 Problem Major depressive disorder, recurrent, in full remission F33.42 Active 498609947 Problem Corns L84 Active 518132424 Problem Alzheimer''s disease, unspecified G30.9 Active 2043024151433 Problem Dementia with behavioral disturbance, unspecified dementia type F03.91 Active 4657462514603 Problem Vascular dementia with behavior disturbance F01.51 Active 500858440763373 Problem Alzheimer''s disease with early onset G30.0 Active 8203077 ALLERGIES No Information ENCOUNTERS Encounter Location Date Diagnosis [facility] [id number] [address] Jan, [facility] [id number] [place] [address] Nov, Seasonal allergies J30.2 ; Dysfunction of both eustachian tubes H69.83 and Vascular dementia with behavior disturbance F01.51 [place] [id number] [place] [address] Sep, Major depressive disorder, recurrent, in full remission F33.42 ; Other chronic pain G89.29 ; Presence of right artificial hip joint Z96.641 ; Pain in right hip M25.551 and Calcaneal spur of right foot M77.31 [place] [id number] [place] [address] Jun, Uncontrolled type 2 diabetes mellitus without complication, without long-term current use of insulin E11.65 ; Alzheimer''s disease with early onset G30.0 and Dementia in other diseases classified elsewhere with behavioral disturbance F02.[address] [address] May, Vascular dementia with behavior disturbance F01.51 [place] [address] [address] Apr, Dementia with behavioral disturbance, unspecified dementia type F03.91 [id number] [place] [address] Apr, Diabetic polyneuropathy associated with type 2 diabetes mellitus E11.42 [place] [id number] [place] [address] Mar, Dysfunction of both eustachian tubes H69.83 [place] [id number] [place] [address] Mar, Annual physical exam Z00.[address] [address] Mar, Diabetic polyneuropathy associated with type 2 diabetes mellitus E11.42 ; Pain of left foot M79.672 ; Pain in right foot M79.671 ; Alzheimer''s disease, unspecified G30.9 and Dementia in other diseases classified elsewhere with behavioral disturbance F02.81 [facility] [address] [place] [address] Nov, Diabetes E11.9 and Seasonal allergies J30.2 [facility] [id number] [place] [address] October, Type 2 diabetes mellitus with hyperglycemia E11.65 and Type 2 diabetes mellitus with unspecified diabetic retinopathy without macular edema E11.319 [facility] [id number] [place] [address] October, Diabetes E11.9 ; Alzheimers disease with early onset G30.0 ; Arthritis M19.90 ; Diabetic polyneuropathy associated with type 2 diabetes mellitus E11.42 and Major depressive disorder, recurrent, in full remission F33.42 [facility] [id number] [place] [address] Sep, [place] [id number] [place] [address] Sep, Dysfunction of both eustachian tubes H69.83 [place] [id number] [place] [address] Aug, Alzheimer''s disease with early onset G30.0 ; Dementia in other diseases classified elsewhere with behavioral disturbance F02.81 ; 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 and Type 2 diabetes mellitus with hyperglycemia E11.65 [facility] [address] [place] [address] Jul, [place] [id number] [place] [address] Jul, Alzheimer''s disease with early onset G30.0 ; Dementia in other diseases classified elsewhere with behavioral disturbance F02.81 and Uncontrolled type 2 diabetes mellitus without complication, without long-term current use of insulin E11.65 [place] [address] [place] [address] 21 Dec, 2017 Diabetes type 2, controlled E11.9 ; Bilateral otitis media with effusion H65.93 and Dizziness R42 [facility] [address] [address] 17 Apr, 2017 Dysuria R30.0 and Acute cystitis with hematuria N30.[address] [address] 02 Apr, 2017 Moderate episode of recurrent major depressive disorder F33.1 [facility] [address] [address] 18 Mar, 2017 Acute cystitis without hematuria N30.[address] [address] 28 Feb, 2017 Uncontrolled type 2 diabetes mellitus without complication, without long-term current use of insulin E11.65 ; Other Alzheimer''s disease G30.8 and Dementia in other diseases classified elsewhere without behavioral disturbance F02.[address] [address] Jan, Diabetes type 2, controlled E11.9 and Alzheimers disease with early onset G30.0 [facility] [address] [address] Dec, Allergic contact dermatitis due to plants, except food L23.7 [facility] [address] [address] Dec, Dysuria R30.0 and Candidiasis of female genitalia B37.[address] [address] 14 Dec, 2016 Diabetes E11.9 and Alzheimers disease with early onset G30.0 [facility] [address] [address] Nov, Acute exacerbation of chronic obstructive pulmonary disease (COPD) J44.1 and Vaginal candidiasis B37.[address] [address] Nov, Controlled type 2 diabetes mellitus without complication, without long-term current use of insulin E11.9 and Other Alzheimers disease G30.[address] [address] October, OME (otitis media with effusion), bilateral H65.93 ; Dizziness R42 and Diabetes E11.9 [facility] [address] [address] Sep, Vertigo R42 ; Heart murmur R01.1 and Dysfunction of inner ear, bilateral H83.[address] [address] Aug, Acute suppurative otitis media of both ears without spontaneous rupture of tympanic membranes, recurrence not specified H66.003 [facility] [address] [address] Aug, Vaginal irritation N89.8 and Acute exacerbation of chronic obstructive pulmonary disease (COPD) J44.[address] [address] Jul, Dementia in other diseases classified elsewhere without behavioral disturbance F02.[address] [address] Jul, [address] [address] Jun, Diabetes type 2, controlled E11.9 ; Alzheimers disease with early onset G30.0 and Dementia in other diseases classified elsewhere without behavioral disturbance F02.[address] [address] May, Diabetes type 2, controlled E11.9 [facility] [address] [address] May, Vaginal candidiasis B37.3 and Dysuria R30.0 [facility] [address] [place] [address] May, Cutaneous abscess of head [any part, except face] L02.811 ; Cellulitis of head [any part, except face] L03.811 ; COPD exacerbation J44.1 and Wheezing R06.2 [place] [address] [address] Apr, [place] [address] [address] Apr, Diabetes E11.9 ; Acute upper respiratory infection, unspecified J06.9 and Vagina, candidiasis B37.3 [facility] [place] [place] [address] [address] Mar, Acute exacerbation of chronic obstructive pulmonary disease (COPD) J44.1 [place] [address] [address] Mar, Diabetes type 2, controlled E11.9 [facility] [address] [id number] [place] [address] Feb, Acute bronchitis, unspecified organism J20.9 [place] [address] [address] Feb, Controlled type 2 diabetes mellitus without complication, without long-term current use of insulin E11.9 [place] [id number] [place] [address] Jan, Controlled type 2 diabetes mellitus without complication, without long-term current use of insulin E11.9 and Anxiety F41.9 [place] [id number] [place] [address] Dec, [address] [address] Nov, Diabetes type 2, controlled E11.9 [place] [id number] [place] [address] Nov, Acute pain of left shoulder M25.512 [facility] [address], [place] [address] October, Cellulitis of face L03.211 [facility] [address] [place] [address] October, Diabetes type 2, controlled E11.9 [facility] [id number] [place] [address] October, Diabetes type 2, controlled E11.9 [place] [address] [place] [address] Sep, Generalized anxiety disorder F41.1 ; Depression F32.9 and FH: memory loss Z82.0 [place] [id number] [place] [address] Sep, FH: memory loss Z82.0 ; Major depression, recurrent F33.9 and Anxiety disorder, unspecified F41.9 [address] [id number] [place] [address] Aug, PTSD (post-traumatic stress disorder) F43.10 ; Generalized anxiety disorder F41.1 and FH: memory loss Z82.0 [place] [address] [place] [address] Aug, FH: memory loss Z82.0 ; Depression F32.9 and PTSD (post-traumatic stress disorder) F43.10 [place], [place] [address] Jul, Major depression, recurrent F33.9 ; Generalized anxiety disorder F41.1 and Alzheimer disease G30.9 [place] [id number] [place] [address] Jul, Diabetes E11.9 and Mood disorder F39 [place] [address] [place] [address] Jul, Dental examination Z01.20 [place] [id number], [place] [address] Apr, Exertional dyspnea R06.09 and Chronic obstructive pulmonary disease, unspecified COPD type J44.9 [facility] [id number] [place] [address] Mar, [facility] [id number] [place] [address] Mar, Diabetes E11.9 [facility] [address] [address] Mar, Diabetes E11.9 ; COPD (chronic obstructive pulmonary disease) J44.9 and Hip pain, right M25.551 [place] [id number] [place] [address] Dec, [place] [id number] [place] [address] Nov, COPD exacerbation 491.21 and Wheezing 786.07 [place] [id number] [place] [address] October, Acute contact dermatitis 692.9 and Anhedonia 780.99 [place] [id number] [place] [address] October, [facility] [id number] [place] [address] Sep, [facility] [id number] [place] [address] Sep, [facility] [id number] [place] [address] Aug, [facility] [id number] [place] [address] Aug, [facility] [id number] [place] [address] Aug, [facility] [address] [place] [address] Aug, [facility] [place] [facility] [address] [id number] [place] [address] Jul, 2014 [facility] [place] [facility] [address] [id number] [place] [address] Jul, 2014 [facility] [place] [facility] [address] [id number] [place] [address] Jul, 2014 [facility] [place] [facility] [address] [id number] [place] [address] Jul, 2014 [facility] [place] [facility] [address] [id number] [place] [address] Jul, 2014 [facility] [place] [facility] [address] [facility] [id number] [place] [address] Jul, 2014 [facility] [place] [facility] [address] [facility] [id number] [place] [address] May, [facility] [place] [facility] [address] [id number] [place] [address] May, [facility] [place] [facility] [address] [facility] [id number] [place] [address] May, [facility] [place] [facility] [address] [facility] [id number] [place] [address] May, [facility] [place] [facility] [address] [id number] [place] [address] May, [facility] [place] [facility] [address] [id number] [place] [address] May, [facility] [place] [facility] [address] [id number] [place] [address] Apr, [facility] [place] [facility] [address] [id number] [place] [address] Apr, [facility] [place] [facility] [address] [facility] [id number] [place] [address] Apr, [facility] [place] [facility] [address] [id number] [place] [address] Apr, [facility] [place] [facility] [address] [id number] [place] [address] Mar, [facility] [place] [facility] [address] [id number] [place] [address] Mar, [facility] [place] [facility] [address] [id number] [place] [address] Feb, [facility] [place] [facility] [address] [id number] [place] [address] Feb, [facility] [place] [facility] [address] [id number] [place] [address] Jan, [facility] [place] [facility] [address] [id number] [place] [address] Jan, [facility] [place] [facility] [address] [id number] [place] [address] Dec, [facility] [place] [facility] [address] [id number] [place] [address] Dec, [facility] [place] [facility] [address] [id number] [place] [address] October, [facility] [place] [facility] [address] [id number] [place] [address] October, [facility] [place] [facility] [address] [id number] [place] [address] October, [facility] [place] [facility] [address] [id number] [place] [address] October, [facility] [place] [facility] [address] [id number] [place] [address] October, [facility] [place] [facility] [address] [id number] [place] [address] October, [facility] [place] [facility] [address] [id number] [place] [address] 24 Sep, 2013 [facility] [place] [facility] [address] [id number] [place] [address] 24 Sep, 2013 [facility] [place] [facility] [address] [id number] [place] [address] Sep, [facility] [place] [facility] [address] [id number] [place] [address] Sep, [facility] [place] [facility] [address] [id number] [place] [address] Sep, [facility] [place] [facility] [address] [id number] [place] [address] Sep, [facility] [place] [facility] [address] [id number] [place] [address] Sep, [facility] [place] [facility] [address] [id number] [place] [address] Sep, [facility] [place] [facility] [address] [id number] [place] [address] 26 Aug, 2013 [facility] [place] [facility] [address] [id number] [place] [address] 14 Aug, 2013 [facility] [place] [facility] [address] [facility] [id number] [place] [address] 14 Aug, 2013 [facility] [place] [facility] [address] [id number] [place] [address] Aug, [facility] [place] [facility] [address] [id number] [place] [address] 13 Aug, 2013 [facility] [place] [facility] [address] [id number] [place] [address] 07 Aug, 2013 [facility] [place] [facility] [address] [id number] [place] [address] 24 Jul, 2013 [facility] [place] [facility] [address] [id number] [place] [address] 24 Jul, 2013 [facility] [place] [facility] [address] [id number] [place] [address] Jul, [facility] [place] [facility] [address] [id number] [place] [address] Jul, [facility] [place] [facility] [address] [id number] [place] [address] May, [facility] [place] [facility] [address] [id number] [place] [address] May, [facility] [place] [facility] [address] [id number] [place] [address] May, [facility] [place] [facility] [address] [id number] [place] [address] May, [facility] [place] [facility] [address] [facility] [id number] [place] [address] Apr, [facility] [place] [facility] [address] [id number] [place] [address] Apr, [facility] [place] [facility] [address] [id number] [place] [address] Apr, [facility] [place] [facility] [address] [facility] [id number] [place] [address] Apr, [facility] [place] [facility] [address] [facility] [id number] [place] [address] Apr, [facility] [place] [facility] [address] [id number] [address] Apr, [facility] [place] [facility] [address] [id number] [place] [address] Apr, [facility] [place] [facility] [address] [id number] [place] [address] Apr, [facility] [place] [facility] [address] [facility] [id number] [place] [address] Mar, [facility] [place] [facility] [address] [id number], [place] [address] Dec, [facility] [place] [facility] [address] [id number] [place] [address] Dec, [facility] [place] [facility] [address] [id number] [place] [address] Nov, [facility] [place] [facility] [address] [id number] [place] [address] Nov, [facility] [place] [facility] [address] [id number] [place] [address] Nov, [facility] [place] [facility] [address] [id number] [place] [address] Sep, [facility] [place] [facility] [address] [id number] [place] [address] Aug, [facility] [place] [facility] [address] [id number] [place] [address] Aug, [facility] [place] [facility] [address] [id number] [place] [address] Aug, [facility] [place] [facility] [address] [id number] [place] [address] Aug, [facility] [place] [facility] [address] [id number] [place] [address] Jul, [facility] [place] [facility] [address] [id number] [place] [address] Jul, [facility] [place] [facility] [address] [id number] [place] [address] May, [facility] [place] [facility] [address] [id number] [place] [address] May, [facility] [place] [facility] [address] [id number] [place] [address] May, [facility] [place] [facility] [address] [id number] [place] [address] Apr, [facility] [place] [facility] [address] [id number] [place] [address] Apr, [facility] [place] [facility] [address] [id number] [place] [address] Apr, [facility] [place] [facility] [address] [id number] [place] [address] Apr, [facility] [place] [facility] [address] [id number] [place] [address] Apr, [facility] [place] [facility] [address] [id number] [place] [address] Apr, [facility] [place] [facility] [address] [id number] [place] [address] Mar, [facility] [place] [facility] [address] [id number] [place] [address] Mar, [facility] [place] [facility] [address] [id number] [place] [address] Mar, [facility] [place] [facility] [address] [id number] [place] [address] 14 Feb, 2012 [facility] [place] [facility] [address] [id number] [place] [address] Feb, [facility] [place] [facility] [address] [id number] [place] [address] Feb, [facility] [place] [facility] [address] [id number] [place] [address] 24 Jan, 2012 [facility] [place] [facility] [address] [id number] [place] [address] Jan, [facility] [place] [facility] [address] [id number] [place] [address] Jan, [facility] [place] [facility] [address] [id number] [place] [address] Jan, [facility] [place] [facility] [address] [id number] [place] [address] Dec, [facility] [address] [id number] [place] [address] Dec, [facility] [place] [facility] [address] [id number] [place] [address] Nov, [facility] [place] [facility] [address] [id number] [place] [address] Nov, [facility] [place] [facility] [address] [id number] [place] [address] October, [facility] [place] [facility] [address] [id number] [place] [address] October, [facility] [place] [facility] [address] [id number] [place] [address] Sep, [facility] [place] [facility] [address] [id number] [place] [address] Aug, [facility] [place] [facility] [address] [id number] [place] [address] Aug, [facility] [place] [facility] [address] [id number] [place] [address] Jul, [facility] [place] [facility] [address] [id number] [place] [address] Jun, [facility] [place] [facility] [address] [id number] [place] [address] Jun, [facility] [place] [facility] [address] [id number], [place] [address] Jun, [facility] [place] [facility] [address] [id number] [place] [address] Jun, [facility] [place] [facility] [address] [id number] [place] [address] May, [facility] [place] [facility] [address] [id number] [place] [address] May, [facility] [place] [facility] [address] [id number] [address] 31 Mar, 2011 [facility] [id number] [address] Mar, [facility] [id number] [address] Feb, [facility] [id number] [address] Dec, [facility] [id number] [address] Aug, [facility] [id number] [address] Aug, [facility] [id number] [address] May, [facility] [id number] [address] Jan, [facility] [id number] [address] Apr, [facility] [id number] [place] [address] Apr, [facility] [address] [id number] [address] Jan, [facility] [address] [id number] [address] Aug, IMMUNIZATIONS No Known Immunizations SOCIAL HISTORY Never Assessed REASON FOR VISIT PLAN OF CARE VITAL SIGNS MEDICATIONS Unknown Medications RESULTS No Results PROCEDURES No Known procedures INSTRUCTIONS MEDICATIONS ADMINISTERED No Known Medications MEDICAL (GENERAL) HISTORY Type Description Date Medical History fatty liver Medical History adrenal mass 2.7 cm (noted 10/2010) Medical History coronary artery disease Medical History asthma/COPD Medical History obesity Medical History type II diabetes Medical History echocardiogram 10/2010 shoed EF 60%, mild MR, mild to mod TR, mild LVH Medical History gambling addiction 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
--- OUTSIDE RECORDS SUMMARY | 2019-01-20 14:46 | XMS REPORT ---
Author Author Migration, Doctor Organization [facility] Address Unknown Phone Unavailable Care Team Providers Care Pony Ride Attendant Name Role Phone Migration, Doctor Unavailable Unavailable PROBLEMS Type Condition ICD9-CM Code [id number] Code Onset Dates Condition Status SNOMED Code Problem Anxiety F41.9 Active 87927005 Problem Flat foot [pes planus] (acquired), right foot M21.41 Active 65026460 Problem Alzheimers disease with early onset G30.0 Active 4915224 Problem Diabetes E11.9 Active 888309872 Problem Moderate episode of recurrent major depressive disorder F33.1 Active 751205061 Problem Uncontrolled type 2 diabetes mellitus without complication, without long- term current use of insulin E11.65 Active 976316440 Problem Arthritis M19.90 Active 0682133 Problem Diabetic polyneuropathy associated with type 2 diabetes mellitus E11.42 Active 75219331 Problem Type 2 diabetes mellitus with unspecified diabetic retinopathy without macular edema E11.319 Active 949045148 Problem Seasonal allergies J30.2 Active 860479051 Problem Dementia in other diseases classified elsewhere with behavioral disturbance F02.81 Active 637961231 Problem Presence of right artificial hip joint Z96.641 Active 769983109 Problem Type 2 diabetes mellitus with hyperglycemia E11.65 Active 036990119665914 Problem Other chronic pain G89.29 Active 24556293 Problem Major depressive disorder, recurrent, in full remission F33.42 Active 359470606 Problem Corns L84 Active 316554208 Problem Alzheimer''s disease, unspecified G30.9 Active 2163358698028 Problem Dementia with behavioral disturbance, unspecified dementia type F03.91 Active 6920968829018 Problem Vascular dementia with behavior disturbance F01.51 Active 273967846073501 Problem Alzheimer''s disease with early onset G30.0 Active 1975163 ALLERGIES No Information ENCOUNTERS Encounter Location Date Diagnosis [facility] [address] [id number], [place] [address] Jan, [facility] [id number] [place] [address] Nov, Seasonal allergies J30.2 ; Dysfunction of both eustachian tubes H69.83 and Vascular dementia with behavior disturbance F01.51 [place] [id number] [place] [address] Sep, Major depressive disorder, recurrent, in full remission F33.42 ; Other chronic pain G89.29 ; Presence of right artificial hip joint Z96.641 ; Pain in right hip M25.551 and Calcaneal spur of right foot M77.31 [place] [id number] [place] [address] Jun, Uncontrolled type 2 diabetes mellitus without complication, without long-term current use of insulin E11.65 ; Alzheimer''s disease with early onset G30.0 and Dementia in other diseases classified elsewhere with behavioral disturbance F02.[address] [address] May, Vascular dementia with behavior disturbance F01.51 [place] [address] [address] Apr, Dementia with behavioral disturbance, unspecified dementia type F03.91 [place] [id number] [place] [address] Apr, Diabetic polyneuropathy associated with type 2 diabetes mellitus E11.42 [place] [id number] [place] [address] Mar, Dysfunction of both eustachian tubes H69.83 [place] [id number] [place] [address] Mar, Annual physical exam Z00.[address] [address] Mar, Diabetic polyneuropathy associated with type 2 diabetes mellitus E11.42 ; Pain of left foot M79.672 ; Pain in right foot M79.671 ; Alzheimer''s disease, unspecified G30.9 and Dementia in other diseases classified elsewhere with behavioral disturbance F02.81 [facility] WALK IN [facility] [id number] [place] [address] Nov, Diabetes E11.9 and Seasonal allergies J30.2 [facility] [id number] [place] [address] October, Type 2 diabetes mellitus with hyperglycemia E11.65 and Type 2 diabetes mellitus with unspecified diabetic retinopathy without macular edema E11.319 [facility] [id number] [place] [address] October, Diabetes E11.9 ; Alzheimers disease with early onset G30.0 ; Arthritis M19.90 ; Diabetic polyneuropathy associated with type 2 diabetes mellitus E11.42 and Major depressive disorder, recurrent, in full remission F33.42 [facility] [id number] [place] [address] Sep, [place] [id number] [place] [address] Sep, Dysfunction of both eustachian tubes H69.83 [place] [id number] [place] [address] Aug, Alzheimer''s disease with early onset G30.0 ; Dementia in other diseases classified elsewhere with behavioral disturbance F02.81 ; 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 and Type 2 diabetes mellitus with hyperglycemia E11.65 [facility] [id number] [place] [address] Jul, [place] [id number] [place] [address] Jul, Alzheimer''s disease with early onset G30.0 ; Dementia in other diseases classified elsewhere with behavioral disturbance F02.81 and Uncontrolled type 2 diabetes mellitus without complication, without long-term current use of insulin E11.65 [place] [address] [place] [address] 21 Dec, 2017 Diabetes type 2, controlled E11.9 ; Bilateral otitis media with effusion H65.93 and Dizziness R42 [facility] [address] [address] 17 Apr, 2017 Dysuria R30.0 and Acute cystitis with hematuria N30.[address] [address] 02 Apr, 2017 Moderate episode of recurrent major depressive disorder F33.1 [facility] [address] [address] 18 Mar, 2017 Acute cystitis without hematuria N30.[address] [address] 28 Feb, 2017 Uncontrolled type 2 diabetes mellitus without complication, without long-term current use of insulin E11.65 ; Other Alzheimer''s disease G30.8 and Dementia in other diseases classified elsewhere without behavioral disturbance F02.[address] [address] Jan, Diabetes type 2, controlled E11.9 and Alzheimers disease with early onset G30.0 [facility] [address] [address] Dec, Allergic contact dermatitis due to plants, except food L23.7 [facility] [address] [address] Dec, Dysuria R30.0 and Candidiasis of female genitalia B37.[address] [address] 14 Dec, 2016 Diabetes E11.9 and Alzheimers disease with early onset G30.0 [facility] [address] [address] Nov, Acute exacerbation of chronic obstructive pulmonary disease (COPD) J44.1 and Vaginal candidiasis B37.[address] [address] Nov, Controlled type 2 diabetes mellitus without complication, without long-term current use of insulin E11.9 and Other Alzheimers disease G30.[address] [address] October, OME (otitis media with effusion), bilateral H65.93 ; Dizziness R42 and Diabetes E11.9 [facility] WALK IN [address] [address] Sep, Vertigo R42 ; Heart murmur R01.1 and Dysfunction of inner ear, bilateral H83.[address] [address] Aug, Acute suppurative otitis media of both ears without spontaneous rupture of tympanic membranes, recurrence not specified H66.003 [facility] WALK IN [address] [address] Aug, Vaginal irritation N89.8 and Acute exacerbation of chronic obstructive pulmonary disease (COPD) J44.[address] [address] Jul, Dementia in other diseases classified elsewhere without behavioral disturbance F02.[address] [address] Jul, [address] [address] Jun, Diabetes type 2, controlled E11.9 ; Alzheimers disease with early onset G30.0 and Dementia in other diseases classified elsewhere without behavioral disturbance F02.[address] [address] May, Diabetes type 2, controlled E11.9 [facility] WALK IN [address] [address] May, Vaginal candidiasis B37.3 and Dysuria R30.0 [facility] WALK IN [address] [place] [address] May, Cutaneous abscess of head [any part, except face] L02.811 ; Cellulitis of head [any part, except face] L03.811 ; COPD exacerbation J44.1 and Wheezing R06.2 [place] [address] [address] Apr, [place] [address] [address] Apr, Diabetes E11.9 ; Acute upper respiratory infection, unspecified J06.9 and Vagina, candidiasis B37.3 [facility] WALK IN [place] [address] [address] Mar, Acute exacerbation of chronic obstructive pulmonary disease (COPD) J44.1 [place] [address] [address] Mar, Diabetes type 2, controlled E11.9 [facility] WALK IN [place] [id number] [place] [address] Feb, Acute bronchitis, unspecified organism J20.9 [place] [address] [address] Feb, Controlled type 2 diabetes mellitus without complication, without long-term current use of insulin E11.9 [place] [id number] [place] [address] Jan, Controlled type 2 diabetes mellitus without complication, without long-term current use of insulin E11.9 and Anxiety F41.9 [place] [id number] [place] [address] Dec, [address] [address] Nov, Diabetes type 2, controlled E11.9 [place] [id number] [place] [address] Nov, Acute pain of left shoulder M25.512 [facility] WALK IN [facility] [address], [place] [address] October, Cellulitis of face L03.211 [facility] [address] [place] [address] October, Diabetes type 2, controlled E11.9 [facility] [id number] [place] [address] October, Diabetes type 2, controlled E11.9 [place] [address] [place] [address] Sep, Generalized anxiety disorder F41.1 ; Depression F32.9 and FH: memory loss Z82.0 [place] [id number] [place] [address] Sep, FH: memory loss Z82.0 ; Major depression, recurrent F33.9 and Anxiety disorder, unspecified F41.9 [place] [id number] [place] [address] Aug, PTSD (post-traumatic stress disorder) F43.10 ; Generalized anxiety disorder F41.1 and FH: memory loss Z82.0 [place] [address] [place] [address] Aug, FH: memory loss Z82.0 ; Depression F32.9 and PTSD (post-traumatic stress disorder) F43.10 [place] [address] [address] Jul, Major depression, recurrent F33.9 ; Generalized anxiety disorder F41.1 and Alzheimer disease G30.9 [place] [id number] [place] [address] Jul, Diabetes E11.9 and Mood disorder F39 [place] [address] [place] [address] Jul, Dental examination Z01.20 [place] [id number], [place] [address] Apr, Exertional dyspnea R06.09 and Chronic obstructive pulmonary disease, unspecified COPD type J44.9 [facility] [id number] [place] [address] Mar, [facility] [id number] [place] [address] Mar, Diabetes E11.9 [facility] [address] [address] Mar, Diabetes E11.9 ; COPD (chronic obstructive pulmonary disease) J44.9 and Hip pain, right M25.551 [place] [id number] [place] [address] Dec, [place] [id number] [place] [address] Nov, COPD exacerbation 491.21 and Wheezing 786.07 [place] [id number] [place] [address] October, Acute contact dermatitis 692.9 and Anhedonia 780.99 [place] [id number] [place] [address] October, [facility] [id number] [place] [address] Sep, [facility] [id number] [place] [address] Sep, [facility] [id number] [place] [address] Aug, [facility] [id number] [place] [address] Aug, [facility] [id number] [place] [address] Aug, [facility] [address] [place] [address] Aug, [facility] [place] [facility] [address] [id number] [place] [address] Jul, 2014 [facility] [place] [facility] [address] [id number] [place] [address] Jul, 2014 [facility] [place] [facility] [address] [id number] [place] [address] Jul, 2014 [facility] [place] [facility] [address] [id number] [place] [address] Jul, 2014 [facility] [place] [facility] [address] [id number] [place] [address] Jul, 2014 [facility] [place] [facility] [address] [facility] [id number] [place] [address] Jul, 2014 [facility] [place] [facility] [address] [facility] [id number] [place] [address] May, [facility] [place] [facility] [address] [id number] [place] [address] May, [facility] [place] [facility] [address] [facility] [id number] [place] [address] May, [facility] [place] [facility] [address] [facility] [id number] [place] [address] May, [facility] [place] [facility] [address] [id number] [place] [address] May, [facility] [place] [facility] [address] [id number] [place] [address] May, [facility] [place] [facility] [address] [id number] [place] [address] Apr, [facility] [place] [facility] [address] [id number] [place] [address] Apr, [facility] [place] [facility] [address] [facility] [id number] [place] [address] Apr, [facility] [place] [facility] [address] [id number] [place] [address] Apr, [facility] [place] [facility] [address] [id number] [place] [address] Mar, [facility] [place] [facility] [address] [id number] [place] [address] Mar, [facility] [place] [facility] [address] [id number] [place] [address] Feb, [facility] [place] [facility] [address] [id number] [place] [address] Feb, [facility] [place] [facility] [address] [id number] [place] [address] Jan, [facility] [place] [facility] [address] [id number] [place] [address] Jan, [facility] [place] [facility] [address] [id number] [place] [address] Dec, [facility] [place] [facility] [address] [id number] [place] [address] Dec, [facility] [place] [facility] [address] [id number] [place] [address] October, [facility] [place] [facility] [address] [id number] [place] [address] October, [facility] [place] [facility] [address] [id number] [place] [address] October, [facility] [place] [facility] [address] [id number] [place] [address] October, [facility] [place] [facility] [address] [id number] [place] [address] October, [facility] [place] [facility] [address] [id number] [place] [address] October, [facility] [place] [facility] [address] [id number] [place] [address] 24 Sep, 2013 [facility] [place] [facility] [address] [id number] [place] [address] 24 Sep, 2013 [facility] [place] [facility] [address] [id number] [place] [address] Sep, [facility] [place] [facility] [address] [id number] [place] [address] Sep, [facility] [place] [facility] [address] [id number] [place] [address] Sep, [facility] [place] [facility] [address] [id number] [place] [address] Sep, [facility] [place] [facility] [address] [id number] [place] [address] Sep, [facility] [place] [facility] [address] [id number] [place] [address] Sep, [facility] [place] [facility] [address] [id number] [place] [address] 26 Aug, 2013 [facility] [place] [facility] [address] [id number] [place] [address] 14 Aug, 2013 [facility] [place] [facility] [address] [facility] [id number] [place] [address] 14 Aug, 2013 [facility] [place] [facility] [address] [id number] [place] [address] Aug, [facility] [place] [facility] [address] [id number] [place] [address] 13 Aug, 2013 [facility] [place] [facility] [address] [id number] [place] [address] 07 Aug, 2013 [facility] [place] [facility] [address] [id number] [place] [address] 24 Jul, 2013 [facility] [place] [facility] [address] [id number] [place] [address] 24 Jul, 2013 [facility] [place] [facility] [address] [id number] [place] [address] Jul, [facility] [place] [facility] [address] [id number] [place] [address] Jul, [facility] [place] [facility] [address] [id number] [place] [address] May, [facility] [place] [facility] [address] [id number] [place] [address] May, [facility] [place] [facility] [address] [id number] [place] [address] May, [facility] [place] [facility] [address] [id number] [place] [address] May, [facility] [place] [facility] [address] [facility] [id number] [place] [address] Apr, [facility] [place] [facility] [address] [id number] [place] [address] Apr, [facility] [place] [facility] [address] [id number] [place] [address] Apr, [facility] [place] [facility] [address] [facility] [id number] [place] [address] Apr, [facility] [place] [facility] [address] [facility] [id number] [place] [address] Apr, [facility] [place] [facility] [address] [id number], [place] [address] Apr, [facility] [place] [facility] [address] [id number] [place] [address] Apr, [facility] [place] [facility] [address] [id number] [place] [address] Apr, [facility] [place] [facility] [address] [facility] [id number] [place] [address] Mar, [facility] [place] [facility] [address] [id number] [address] Dec, [facility] [place] [facility] [address] [id number] [place] [address] Dec, [facility] [place] [facility] [address] [id number] [place] [address] Nov, [facility] [place] [facility] [address] [id number] [place] [address] Nov, [facility] [place] [facility] [address] [id number] [place] [address] Nov, [facility] [place] [facility] [address] [id number] [place] [address] Sep, [facility] [place] [facility] [address] [id number] [place] [address] Aug, [facility] [place] [facility] [address] [id number] [place] [address] Aug, [facility] [place] [facility] [address] [id number] [place] [address] Aug, [facility] [place] [facility] [address] [id number] [place] [address] Aug, [facility] [place] [facility] [address] [id number] [place] [address] Jul, [facility] [place] [facility] [address] [id number] [place] [address] Jul, [facility] [place] [facility] [address] [id number] [place] [address] May, [facility] [place] [facility] [address] [id number] [place] [address] May, [facility] [place] [facility] [address] [id number] [place] [address] May, [facility] [place] [facility] [address] [id number] [place] [address] Apr, [facility] [place] [facility] [address] [id number] [place] [address] Apr, [facility] [place] [facility] [address] [id number] [place] [address] Apr, [facility] [place] [facility] [address] [id number] [place] [address] Apr, [facility] [place] [facility] [address] [id number] [place] [address] Apr, [facility] [place] [facility] [address] [id number] [place] [address] Apr, [facility] [place] [facility] [address] [id number] [place] [address] Mar, [facility] [place] [facility] [address] [id number] [place] [address] Mar, [facility] [place] [facility] [address] [id number] [place] [address] Mar, [facility] [place] [facility] [address] [id number] [place] [address] 14 Feb, 2012 [facility] [place] [facility] [address] [id number] [place] [address] Feb, [facility] [place] [facility] [address] [id number] [place] [address] Feb, [facility] [place] [facility] [address] [id number] [place] [address] 24 Jan, 2012 [facility] [place] [facility] [address] [id number] [place] [address] Jan, [facility] [place] [facility] [address] [id number] [place] [address] Jan, [facility] [place] [facility] [address] [id number] [place] [address] Jan, [facility] [place] [facility] [address] [id number] [place] [address] Dec, [facility] [address] [id number] [place] [address] Dec, [facility] [place] [facility] [address] [id number] [place] [address] Nov, [facility] [place] [facility] [address] [id number] [place] [address] Nov, [facility] [place] [facility] [address] [id number] [place] [address] October, [facility] [place] [facility] [address] [id number] [place] [address] October, [facility] [place] [facility] [address] [id number] [place] [address] Sep, [facility] [place] [facility] [address] [id number] [place] [address] Aug, [facility] [place] [facility] [address] [id number] [place] [address] Aug, [facility] [place] [facility] [address] [id number] [place] [address] Jul, [facility] [place] [facility] [address] [id number] [place] [address] Jun, [facility] [place] [facility] [address] [id number] [place] [address] Jun, [facility] [place] [facility] [address] [id number], [place] [address] Jun, [facility] [place] [facility] [address] [id number] [place] [address] Jun, [facility] [place] [facility] [address] [id number] [place] [address] May, [facility] [place] [facility] [address] [id number] [place] [address] May, [facility] [place] [facility] [address] [id number] [address] 31 Mar, 2011 [facility] [id number] [place] [address] Mar, [facility] [id number] [place] [address] Feb, [facility] [id number] [place] [address] Dec, [facility] [id number] [place] [address] Aug, [facility] [id number] [place] [address] Aug, [facility] [id number] [place] [address] May, [facility] [id number], [place] [address] Jan, [facility] [id number] [place] [address] Apr, [facility] [id number] [place] [address] Apr, [facility] [address] [id number], [place] [id number] Jan, [facility] [address] [id number], [place] [id number] Aug, IMMUNIZATIONS No Known Immunizations SOCIAL HISTORY [...]
--- OUTSIDE RECORDS SUMMARY | 2019-01-20 14:47 | XMS REPORT ---
Author Author HERMILO VERDUGO Organization [facility] Address [address] [place] [address] Care Team Providers Care Accounting Professor Name Role Phone HERMILO VERDUGO Unavailable PROBLEMS Type Condition ICD9-CM Code IMO99-PG Code Onset Dates Condition Status SNOMED Code Problem Anxiety F41.9 Active 43957695 Problem Flat foot [pes planus] (acquired), right foot M21.41 Active 12343950 Problem Alzheimers disease with early onset G30.0 Active 0889844 Problem Diabetes E11.9 Active 604469179 Problem Moderate episode of recurrent major depressive disorder F33.1 Active 662242980 Problem Uncontrolled type 2 diabetes mellitus without complication, without long- term current use of insulin E11.65 Active 249195290 Problem Arthritis M19.90 Active 7272799 Problem Diabetic polyneuropathy associated with type 2 diabetes mellitus E11.42 Active 55433698 Problem Type 2 diabetes mellitus with unspecified diabetic retinopathy without macular edema E11.319 Active 079617750 Problem Seasonal allergies J30.2 Active 116046119 Problem Dementia in other diseases classified elsewhere with behavioral disturbance F02.81 Active 631794048 Problem Presence of right artificial hip joint Z96.641 Active 542532512 Problem Type 2 diabetes mellitus with hyperglycemia E11.65 Active 554265989776066 Problem Other chronic pain G89.29 Active 58683876 Problem Major depressive disorder, recurrent, in full remission F33.42 Active 491483121 Problem Corns L84 Active 931489514 Problem Alzheimer''s disease, unspecified G30.9 Active 6710746443597 Problem Dementia with behavioral disturbance, unspecified dementia type F03.91 Active 2992616824672 Problem Vascular dementia with behavior disturbance F01.51 Active 692647202511400 Problem Alzheimer''s disease with early onset G30.0 Active 5556865 ALLERGIES No Information ENCOUNTERS Encounter Location Date Diagnosis [facility] [address] [facility] [id number] [address] Nov, Seasonal allergies J30.2 ; Dysfunction of both eustachian tubes H69.83 and Vascular dementia with behavior disturbance F01.[address] [address] Sep, Major depressive disorder, recurrent, in full remission F33.42 ; Other chronic pain G89.29 ; Presence of right artificial hip joint Z96.641 ; Pain in right hip M25.551 and Calcaneal spur of right foot M77.[address] [address] Jun, Uncontrolled type 2 diabetes mellitus without complication, without long-term current use of insulin E11.65 ; Alzheimer''s disease with early onset G30.0 and Dementia in other diseases classified elsewhere with behavioral disturbance F02.[address] [address] May, Vascular dementia with behavior disturbance F01.[address] [address] Apr, Dementia with behavioral disturbance, unspecified dementia type F03.[address] [address] Apr, Diabetic polyneuropathy associated with type 2 diabetes mellitus E11.[address] [address] Mar, Dysfunction of both eustachian tubes H69.[address] [address] Mar, Annual physical exam Z00.[address] [address] Mar, Diabetic polyneuropathy associated with type 2 diabetes mellitus E11.42 ; Pain of left foot M79.672 ; Pain in right foot M79.671 ; Alzheimer''s disease, unspecified G30.9 and Dementia in other diseases classified elsewhere with behavioral disturbance F02.81 [facility] WALK IN [facility] [address] [address] 16 Nov, 2017 Diabetes E11.9 and Seasonal allergies J30.2 [facility] [id number] [place] [address] October, Type 2 diabetes mellitus with hyperglycemia E11.65 and Type 2 diabetes mellitus with unspecified diabetic retinopathy without macular edema E11.319 [place] [id number] [place] [address] October, Diabetes E11.9 ; Alzheimers disease with early onset G30.0 ; Arthritis M19.90 ; Diabetic polyneuropathy associated with type 2 diabetes mellitus E11.42 and Major depressive disorder, recurrent, in full remission F33.42 [place] [id number] [place] [address] 17 Sep, 2017 [place] [id number] [place] [address] Sep, Dysfunction of both eustachian tubes H69.83 [place] [id number] [place] [address] Aug, Alzheimer''s disease with early onset G30.0 ; Dementia in other diseases classified elsewhere with behavioral disturbance F02.81 ; 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 and Type 2 diabetes mellitus with hyperglycemia E11.65 [facility] [id number] [place] [address] Jul, [place] [id number] [place] [address] Jul, Alzheimer''s disease with early onset G30.0 ; Dementia in other diseases classified elsewhere with behavioral disturbance F02.81 and Uncontrolled type 2 diabetes mellitus without complication, without long-term current use of insulin E11.65 [facility] [address] [address] May, Diabetes type 2, controlled E11.9 ; Bilateral otitis media with effusion H65.93 and Dizziness R42 [facility] [address] [address] 17 Apr, 2017 Dysuria R30.0 and Acute cystitis with hematuria N30.01 [place] [address] [address] 02 Apr, 2017 Moderate episode of recurrent major depressive disorder F33.1 [facility] [address] [address] 18 Mar, 2017 Acute cystitis without hematuria N30.[address] [address] 28 Feb, 2017 Uncontrolled type 2 diabetes mellitus without complication, without long-term current use of insulin E11.65 ; Other Alzheimer''s disease G30.8 and Dementia in other diseases classified elsewhere without behavioral disturbance F02.[address] [address] Jan, Diabetes type 2, controlled E11.9 and Alzheimers disease with early onset G30.0 [facility] WALK IN [address] [address] Dec, Allergic contact dermatitis due to plants, except food L23.7 [facility] IN [address] [address] Dec, Dysuria R30.0 and Candidiasis of female genitalia B37.[address] [address] 14 Dec, 2016 Diabetes E11.9 and Alzheimers disease with early onset G30.0 [facility] W[facility] IN [address] [address] Nov, Acute exacerbation of chronic obstructive pulmonary disease (COPD) J44.1 and Vaginal candidiasis B37.[address] [address] 15 Nov, 2016 Controlled type 2 diabetes mellitus without complication, without long-term current use of insulin E11.9 and Other Alzheimers disease G30.8 [place] [address] [address] October, OME (otitis media with effusion), bilateral H65.93 ; Dizziness R42 and Diabetes E11.9 [facility] WALK IN [place] [address] [address] Sep, Vertigo R42 ; Heart murmur R01.1 and Dysfunction of inner ear, bilateral H83.93 [place] [address] [address] Aug, Acute suppurative otitis media of both ears without spontaneous rupture of tympanic membranes, recurrence not specified H66.003 [facility] WALK IN [place] [address] [address] Aug, Vaginal irritation N89.8 and Acute exacerbation of chronic obstructive pulmonary disease (COPD) J44.1 [place] [address] [address] Jul, Dementia in other diseases classified elsewhere without behavioral disturbance F02.80 [place] [address] [address] Jul, [place] [address] [address] Jun, Diabetes type 2, controlled E11.9 ; Alzheimers disease with early onset G30.0 and Dementia in other diseases classified elsewhere without behavioral disturbance F02.80 [place] [id number] [place] [address] May, Diabetes type 2, controlled E11.9 [facility] WALK IN [place] [address] [address] May, Vaginal candidiasis B37.3 and Dysuria R30.0 [facility] WALK IN [address] [address] May, Cutaneous abscess of head [any part, except face] L02.811 ; Cellulitis of head [any part, except face] L03.811 ; COPD exacerbation J44.1 and Wheezing R06.2 [place] [id number] [place] [address] Apr, [address] [address] Apr, Diabetes E11.9 ; Acute upper respiratory infection, unspecified J06.9 and Vagina, candidiasis B37.3 [facility] WALK IN [address] [address] Mar, Acute exacerbation of chronic obstructive pulmonary disease (COPD) J44.[address] [address] Mar, Diabetes type 2, controlled E11.9 [facility] WALK IN [place] [address] [id number] [place] [address] Feb, Acute bronchitis, unspecified organism J20.[address] [address] Feb, Controlled type 2 diabetes mellitus without complication, without long-term current use of insulin E11.9 [place] [id number] [place] [address] Jan, Controlled type 2 diabetes mellitus without complication, without long-term current use of insulin E11.9 and Anxiety F41.9 [place] [id number] [place] [address] Dec, [address] [address] Nov, Diabetes type 2, controlled E11.9 [place] [id number] [place] [address] Nov, Acute pain of left shoulder M25.512 [facility] [address] [address] October, Cellulitis of face L03.211 [facility] [address] [place] [id number] [place] [address] October, Diabetes type 2, controlled E11.9 [facility] [address] [id number] [place] [address] October, Diabetes type 2, controlled E11.9 [place] [id number] [place] [address] Sep, Generalized anxiety disorder F41.1 ; Depression F32.9 and FH: memory loss Z82.0 [place] [id number] [place] [address] Sep, FH: memory loss Z82.0 ; Major depression, recurrent F33.9 and Anxiety disorder, unspecified F41.9 [place] [id number] [place] [address] Aug, PTSD (post-traumatic stress disorder) F43.10 ; Generalized anxiety disorder F41.1 and FH: memory loss Z82.0 [place] [id number] [place] [address] Aug, FH: memory loss Z82.0 ; Depression F32.9 and PTSD (post-traumatic stress disorder) F43.10 [place] [id number] [place] [address] Jul, Major depression, recurrent F33.9 ; Generalized anxiety disorder F41.1 and Alzheimer disease G30.9 [place] [id number] [place] [address] Jul, Diabetes E11.9 and Mood disorder F39 [place] [id number] [place] [address] Jul, Dental examination Z01.20 [place] [id number] [place] [address] Apr, Exertional dyspnea R06.09 and Chronic obstructive pulmonary disease, unspecified COPD type J44.9 [facility] [address] [place] [id number] [place] [address] Mar, [facility] [address] [place] [id number] [place] [address] Mar, Diabetes E11.9 [facility] [address] [place] [id number] [place] [address] Mar, Diabetes E11.9 ; COPD (chronic obstructive pulmonary disease) J44.9 and Hip pain, right M25.551 [place] [id number] [place] [address] Dec, [place] [address] [address] Nov, COPD exacerbation 491.21 and Wheezing 786.07 [place] [id number] [place] [address] October, Acute contact dermatitis 692.9 and Anhedonia 780.99 [place] [address] [id number] [place] [address] October, [facility] [address] [place] [id number] [place] [address] Sep, [facility] [address] [place] [id number] [place] [address] Sep, [facility] [address] [place] [id number] [place] [address] Aug, [facility] [address] [place] [id number] [place] [address] Aug, [facility] [address] [place] [id number] [place] [address] Aug, [facility] [address] [place] [id number] [place] [address] Aug, [facility] [place] [facility] [address] [id number] [place] [address] Jul, 2014 [facility] [place] [facility] [address] [id number] [place] [address] Jul, 2014 [facility] [place] [facility] [address] [facility] [id number] [place] [address] Jul, 2014 [facility] [place] [facility] [address] [id number] [place] [address] Jul, 2014 [facility] [place] [facility] [address] [id number] [place] [address] Jul, 2014 [facility] [place] [facility] [address] [facility] [id number] [place] [address] Jul, 2014 [facility] [place] [facility] [address] [facility] [id number] [place] [address] May, [facility] [place] [facility] [address] [facility] [id number] [place] [address] May, [facility] [place] [facility] [address] [facility] [id number] [place] [address] May, [facility] [place] [facility] [address] [facility] [id number] [place] [address] May, [facility] [place] [facility] [address] [facility] [id number] [place] [address] May, [facility] [place] [facility] [address] [facility] [id number] [place] [address] May, [facility] [place] [facility] [address] [id number] [place] [address] Apr, [facility] [place] [facility] [address] [facility] [id number] [place] [address] Apr, [facility] [place] [facility] [address] [facility] [id number] [place] [address] Apr, [facility] [place] [facility] [address] [id number] [place] [address] Apr, [facility] [place] [facility] [address] [id number] [place] [address] Mar, [facility] [place] [facility] [address] [id number] [place] [address] Mar, [facility] [place] [facility] [address] [id number] [place] [address] Feb, [facility] [place] [facility] [address] [id number] [place] [address] Feb, [facility] [place] [facility] [address] [id number] [place] [address] Jan, [facility] [place] [facility] [address] [id number] [place] [address] Jan, [facility] [place] [facility] [address] [id number] [place] [address] Dec, [facility] [place] [facility] [address] [id number] [place] [address] Dec, [facility] [place] [facility] [address] [id number] [place] [address] October, [facility] [place] [facility] [address] [id number] [place] [address] October, [facility] [place] [facility] [address] [id number] [place] [address] October, [facility] [place] [facility] [address] [id number] [place] [address] October, [facility] [place] [facility] [address] [id number] [place] [address] October, [facility] [place] [facility] [address] [id number] [place] [address] October, [facility] [place] [facility] [address] [id number] [place] [address] Sep, [facility] [place] [facility] [address] [id number] [place] [address] 24 Sep, 2013 [facility] [place] [facility] [address] [id number] [place] [address] Sep, [facility] [place] [facility] [address] [id number] [place] [address] Sep, [facility] [place] [facility] [address] [id number] [place] [address] Sep, [facility] [place] [facility] [address] [id number] [place] [address] Sep, [facility] [place] [facility] [address] [id number] [place] [address] Sep, [facility] [place] [facility] [address] [id number] [place] [address] Sep, [facility] [place] [facility] [address] [id number] [place] [address] Aug, [facility] [place] [facility] [address] [id number] [place] [address] 14 Aug, 2013 [facility] [place] [facility] [address] [id number] [place] [address] 14 Aug, 2013 [facility] [place] [facility] [address] [id number] [place] [address] Aug, [facility] [place] [facility] [address] [id number] [place] [address] 13 Aug, 2013 [facility] [place] [facility] [address] [id number] [place] [address] Aug, [facility] [place] [facility] [address] [id number] [place] [address] Jul, [facility] [place] [facility] [address] [id number] [place] [address] Jul, [facility] [place] [facility] [address] [id number] [place] [address] 06 Jul, 2013 [facility] [address] [id number] [place] [address] Jul, [facility] [address] [id number] [place] [address] May, [facility] [address] [id number] [place] [address] May, [facility] [address] [id number] [place] [address] May, [facility] [address] [id number] [place] [address] May, [facility] [address] [facility] [id number] [place] [address] Apr, [facility] [address] [facility] [id number] [place] [address] Apr, [facility] [address] [id number] [place] [address] Apr, [facility] [address] [facility] [id number] [place] [address] Apr, [facility] [address] [facility] [id number] [place] [address] Apr, [facility] [address] [id number] [place] [address] Apr, [facility] [address] [id number] [place] [address] Apr, [facility] [place] [facility] [address] [id number] [place] [address] Apr, [facility] [place] [facility] [address] [facility] [id number] [place] [address] Mar, [facility] [address] [facility] [id number] [place] [address] Dec, [facility] [place] [facility] [address] [id number] [place] [address] Dec, [facility] [place] [facility] [address] [id number] [place] [address] Nov, [facility] [place] [facility] [address] [id number] [place] [address] Nov, [facility] [place] [facility] [address] [id number] [place] [address] Nov, [facility] [place] [facility] [address] [id number] [place] [address] Sep, [facility] [place] [facility] [address] [id number] [place] [address] Aug, [facility] [place] [facility] [address] [id number] [place] [address] Aug, [facility] [place] [facility] [address] [id number] [place] [address] Aug, [facility] [place] [facility] [address] [id number] [place] [address] Aug, [facility] [place] [facility] [address] [id number] [place] [address] Jul, [facility] [place] [facility] [address] [id number] [place] [address] Jul, [facility] [place] [facility] [address] [id number] [address] May, [facility] [place] [facility] [address] [id number] [place] [address] May, [facility] [place] [facility] [address] [id number] [place] [address] May, [facility] [place] [facility] [address] [id number] [place] [address] Apr, [facility] [place] [facility] [address] [id number], [place] [address] Apr, [facility] [place] [facility] [address] [id number] [place] [address] Apr, [facility] [place] [facility] [address] [id number] [place] [address] Apr, [facility] [place] [facility] [address] [facility] [id number] [place] [address] Apr, [facility] [place] [facility] [address] [id number] [place] [address] Apr, [facility] [place] [facility] [address] [id number] [place] [address] Mar, [facility] [place] [facility] [address] [id number] [place] [address] Mar, [facility] [place] [facility] [id number] [address] Mar, [facility] [place] [facility] [address] [facility] [id number] [place] [address] 14 Feb, 2012 [facility] [place] [facility] [address] [id number] [place] [address] Feb, [facility] [place] [facility] [address] [facility] [id number] [place] [address] Feb, [facility] [place] [facility] [address] [id number] [place] [address] 24 Jan, 2012 [facility] [place] [facility] [address] [id number] [place] [address] Jan, [facility] [place] [facility] [address] [id number] [place] [address] 16 Jan, 2012 [facility] [place] [facility] [address] [facility] [id number] [place] [address] Jan, [facility] [place] [facility] [address] [facility] [id number] [place] [address] Dec, [facility] [place] [facility] [address] [id number] [place] [address] Dec, [facility] [place] [facility] [address] [id number] [place] [address] Nov, [facility] [place] [facility] [address] [id number] [place] [address] Nov, [facility] [place] [facility] [address] [id number] [place] [address] October, [facility] [place] [facility] [address] [id number] [place] [address] October, [facility] [place] [facility] [address] [id number] [place] [address] Sep, [facility] [place] [facility] [address] [id number] [place] [address] Aug, [facility] [place] [facility] [address] [id number] [place] [address] Aug, [facility] [place] [facility] [address] [id number] [place] [address] Jul, [facility] [place] [facility] [address] [id number] [place] [address] Jun, [facility] [place] [facility] [address] [id number] [place] [address] Jun, [facility] [place] [facility] [address] [id number] [place] [address] Jun, [facility] [place] [facility] [address] [id number] [place] [address] Jun, [facility] [place] [facility] [address] [id number] [place] [address] May, [facility] [place] [facility] [address] [id number] [place] [address] May, [facility] [place] [facility] [address] [id number] [place] [address] Mar, [facility] [address] [id number] [address] Mar, [facility] [id number] [address] Feb, [facility] [id number] [address] Dec, [facility] [id number] [address] Aug, [facility] [id number] [address] Aug, [facility] [id number] [address] May, [facility] [id number] [address] Jan, [facility] [id number] [address] Apr, [facility] [id number] [address] Apr, [facility] [id number] [address] Jan, [facility] [id number] [address] Aug, IMMUNIZATIONS No Known Immunizations SOCIAL HISTORY [...]
--- OUTSIDE RECORDS SUMMARY | 2019-01-20 14:47 | XMS REPORT ---
Author Author VERONICA CARY Organization [facility] Address [address] [place] [address] Care Team Providers Care Supply Chain Assistant Name Role Phone VERONICA CARY Unavailable PROBLEMS Type Condition ICD9-CM Code JWF35-XN Code Onset Dates Condition Status SNOMED Code Problem Anxiety F41.9 Active 08459279 Problem Flat foot [pes planus] (acquired), right foot M21.41 Active 11953585 Problem Alzheimers disease with early onset G30.0 Active 4708966 Problem Diabetes E11.9 Active 254793530 Problem Moderate episode of recurrent major depressive disorder F33.1 Active 866156248 Problem Uncontrolled type 2 diabetes mellitus without complication, without long- term current use of insulin E11.65 Active 894564113 Problem Arthritis M19.90 Active 9434109 Problem Diabetic polyneuropathy associated with type 2 diabetes mellitus E11.42 Active 17314935 Problem Type 2 diabetes mellitus with unspecified diabetic retinopathy without macular edema E11.319 Active 662846186 Problem Seasonal allergies J30.2 Active 227439462 Problem Dementia in other diseases classified elsewhere with behavioral disturbance F02.81 Active 066628004 Problem Presence of right artificial hip joint Z96.641 Active 493629027 Problem Type 2 diabetes mellitus with hyperglycemia E11.65 Active 003901826129267 Problem Other chronic pain G89.29 Active 93422397 Problem Major depressive disorder, recurrent, in full remission F33.42 Active 618460174 Problem Corns L84 Active 497281332 Problem Alzheimer''s disease, unspecified G30.9 Active 3309291779373 Problem Dementia with behavioral disturbance, unspecified dementia type F03.91 Active 2393359484789 Problem Vascular dementia with behavior disturbance F01.51 Active 502579330065694 Problem Alzheimer''s disease with early onset G30.0 Active 5793868 ALLERGIES No Information ENCOUNTERS Encounter Location Date Diagnosis [facility] [address] [facility] [id number] [address] Nov, Seasonal allergies J30.2 ; Dysfunction of both eustachian tubes H69.83 and Vascular dementia with behavior disturbance F01.51 [place] [id number] [place] [address] Sep, Major depressive disorder, recurrent, in full remission F33.42 ; Other chronic pain G89.29 ; Presence of right artificial hip joint Z96.641 ; Pain in right hip M25.551 and Calcaneal spur of right foot M77.31 [place] [id number] [place] [address] Jun, Uncontrolled type 2 diabetes mellitus without complication, without long-term current use of insulin E11.65 ; Alzheimer''s disease with early onset G30.0 and Dementia in other diseases classified elsewhere with behavioral disturbance F02.81 [place] [id number] [place] [address] May, Vascular dementia with behavior disturbance F01.51 [place] [id number] [place] [address] Apr, Dementia with behavioral disturbance, unspecified dementia type F03.[address] [address] Apr, Diabetic polyneuropathy associated with type 2 diabetes mellitus E11.42 [place] [id number] [place] [address] Mar, Dysfunction of both eustachian tubes H69.83 [place] [id number] [place] [address] Mar, Annual physical exam Z00.[address] [address] Mar, Diabetic polyneuropathy associated with type 2 diabetes mellitus E11.42 ; Pain of left foot M79.672 ; Pain in right foot M79.671 ; Alzheimer''s disease, unspecified G30.9 and Dementia in other diseases classified elsewhere with behavioral disturbance F02.81 [facility] [address] [place] [address] 16 Nov, 2017 Diabetes E11.9 and Seasonal allergies J30.2 [facility] [address] [place] [id number] [place] [address] October, Type 2 diabetes mellitus with hyperglycemia E11.65 and Type 2 diabetes mellitus with unspecified diabetic retinopathy without macular edema E11.319 [facility] [address] [place] [id number] [place] [address] October, Diabetes E11.9 ; Alzheimers disease with early onset G30.0 ; Arthritis M19.90 ; Diabetic polyneuropathy associated with type 2 diabetes mellitus E11.42 and Major depressive disorder, recurrent, in full remission F33.42 [place] [address] [place] [id number] [place] [address] Sep, [place] [address] [place] [id number] [place] [address] Sep, Dysfunction of both eustachian tubes H69.83 [place] [address] [place] [id number] [place] [address] Aug, Alzheimer''s disease with early onset G30.0 ; Dementia in other diseases classified elsewhere with behavioral disturbance F02.81 ; 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 and Type 2 diabetes mellitus with hyperglycemia E11.65 [facility] [address] [address] Jul, [place] [address] [place] [id number] [place] [address] Jul, Alzheimer''s disease with early onset G30.0 ; Dementia in other diseases classified elsewhere with behavioral disturbance F02.81 and Uncontrolled type 2 diabetes mellitus without complication, without long-term current use of insulin E11.65 [facility] [address] [address] May, Diabetes type 2, controlled E11.9 ; Bilateral otitis media with effusion H65.93 and Dizziness R42 [facility] [address] [place] [id number] [place] [address] 17 Apr, 2017 Dysuria R30.0 and Acute cystitis with hematuria N30.[address] [address] 02 Apr, 2017 Moderate episode of recurrent major depressive disorder F33.[address] [facility] [address] [address] 18 Mar, 2017 Acute cystitis without hematuria N30.[address] [address] 28 Feb, 2017 Uncontrolled type 2 diabetes mellitus without complication, without long-term current use of insulin E11.65 ; Other Alzheimer''s disease G30.8 and Dementia in other diseases classified elsewhere without behavioral disturbance F02.[address] [address] Jan, Diabetes type 2, controlled E11.9 and Alzheimers disease with early onset G30.0 [facility] [address] [address] Dec, Allergic contact dermatitis due to plants, except food L23.[address] [facility] [address] [address] 18 Dec, 2016 Dysuria R30.0 and Candidiasis of female genitalia B37.[address] [address] 14 Dec, 2016 Diabetes E11.9 and Alzheimers disease with early onset G30.0 [facility] [address] [address] Nov, Acute exacerbation of chronic obstructive pulmonary disease (COPD) J44.1 and Vaginal candidiasis B37.[address] [address] Nov, Controlled type 2 diabetes mellitus without complication, without long-term current use of insulin E11.9 and Other Alzheimers disease G30.8 [place] [address] [address] October, OME (otitis media with effusion), bilateral H65.93 ; Dizziness R42 and Diabetes E11.9 [facility] [place] [address] [address] Sep, Vertigo R42 ; Heart murmur R01.1 and Dysfunction of inner ear, bilateral H83.93 [place] [address] [address] Aug, Acute suppurative otitis media of both ears without spontaneous rupture of tympanic membranes, recurrence not specified H66.003 [facility] [address] [address] Aug, Vaginal irritation N89.8 and Acute exacerbation of chronic obstructive pulmonary disease (COPD) J44.1 [place] [address] [address] Jul, Dementia in other diseases classified elsewhere without behavioral disturbance F02.80 [place] [address] [address] Jul, [place] [address] [address] Jun, Diabetes type 2, controlled E11.9 ; Alzheimers disease with early onset G30.0 and Dementia in other diseases classified elsewhere without behavioral disturbance F02.80 [place] [address] [place] [id number] [place] [address] May, Diabetes type 2, controlled E11.9 [facility] [place] [address] [address] May, Vaginal candidiasis B37.3 and Dysuria R30.0 [facility] [address] [address] May, Cutaneous abscess of head [any part, except face] L02.811 ; Cellulitis of head [any part, except face] L03.811 ; COPD exacerbation J44.1 and Wheezing R06.2 [place] [address] [place] [id number] [place] [address] Apr, [place] [id number] [place] [address] Apr, Diabetes E11.9 ; Acute upper respiratory infection, unspecified J06.9 and Vagina, candidiasis B37.3 [facility] [place] [id number] [place] [address] Mar, Acute exacerbation of chronic obstructive pulmonary disease (COPD) J44.1 [place] [id number] [place] [address] Mar, Diabetes type 2, controlled E11.9 [facility] [place] [id number] [place] [address] Feb, Acute bronchitis, unspecified organism J20.9 [place] [id number] [place] [address] Feb, Controlled type 2 diabetes mellitus without complication, without long-term current use of insulin E11.9 [place] [address] [place] [address] Jan, Controlled type 2 diabetes mellitus without complication, without long-term current use of insulin E11.9 and Anxiety F41.9 [place] [address] [place] [id number] [place] [address] Dec, [address] [address] Nov, Diabetes type 2, controlled E11.9 [place] [address] [place] [id number] [place] [address] Nov, Acute pain of left shoulder M25.512 [facility] IN [facility] [address] [address] October, Cellulitis of face L03.211 [facility] [address] [place] [id number] [place] [address] October, Diabetes type 2, controlled E11.9 [facility] [address] [place] [id number] [place] [address] October, Diabetes type 2, controlled E11.9 [place] [address] [place] [id number] [place] [address] Sep, Generalized anxiety disorder F41.1 ; Depression F32.9 and FH: memory loss Z82.0 [place] [address] [place] [id number] [place] [address] Sep, FH: memory loss Z82.0 ; Major depression, recurrent F33.9 and Anxiety disorder, unspecified F41.9 [place] [address] [place] [address] Aug, PTSD (post-traumatic stress disorder) F43.10 ; Generalized anxiety disorder F41.1 and FH: memory loss Z82.0 [place] [address] [place] [address] Aug, FH: memory loss Z82.0 ; Depression F32.9 and PTSD (post-traumatic stress disorder) F43.10 [place] [address] [place] [address] Jul, Major depression, recurrent F33.9 ; Generalized anxiety disorder F41.1 and Alzheimer disease G30.9 [place] [address] [place] [id number] [place] [address] Jul, Diabetes E11.9 and Mood disorder F39 [place] [address] [place] [address] Jul, Dental examination Z01.20 [place] [address] [place] [id number] [place] [address] Apr, Exertional dyspnea R06.09 and Chronic obstructive pulmonary disease, unspecified COPD type J44.9 [facility] [address] [place] [id number] [place] [address] Mar, [facility] [address] [place] [id number] [place] [address] Mar, Diabetes E11.9 [facility] [address] [address] Mar, Diabetes E11.9 ; COPD (chronic obstructive pulmonary disease) J44.9 and Hip pain, right M25.551 [place] [address] [address] Dec, [place] [address] [address] Nov, COPD exacerbation 491.21 and Wheezing 786.07 [facility] [address] [address] October, Acute contact dermatitis 692.9 and Anhedonia 780.99 [place] [address] [place] [id number] [place] [address] October, [facility] [address] [place] [id number] [place] [address] Sep, [facility] [address] [place] [id number] [place] [address] Sep, [facility] [address] [place] [id number] [place] [address] Aug, [facility] [address] [address] Aug, [facility] [address] [place] [id number] [place] [address] Aug, [facility] [address] [address] Aug, [facility] [place] [facility] [address] [id number] [place] [address] Jul, 2014 [facility] [place] [facility] [address] [id number] [place] [address] Jul, 2014 [facility] [place] [facility] [address] [id number] [place] [address] Jul, 2014 [facility] [place] [facility] [address] [id number] [place] [address] Jul, 2014 [facility] [place] [facility] [address] [id number] [place] [address] Jul, 2014 [facility] [place] [facility] [address] [id number] [place] [address] Jul, 2014 [facility] [place] [facility] [address] [facility] [id number] [place] [address] May, [facility] [place] [facility] [address] [id number] [place] [address] May, [facility] [place] [facility] [address] [id number] [place] [address] May, [facility] [place] [facility] [address] [facility] [id number] [place] [address] May, [facility] [place] [facility] [address] [facility] [id number] [place] [address] May, [facility] [place] [facility] [address] [id number] [place] [address] May, [facility] [place] [facility] [address] [id number] [place] [address] Apr, [facility] [place] [facility] [address] [facility] [id number] [place] [address] Apr, [facility] [place] [facility] [address] [facility] [id number] [place] [address] Apr, [facility] [place] [facility] [address] [id number] [place] [address] Apr, [facility] [place] [facility] [address] [id number] [place] [address] Mar, [facility] [place] [facility] [address] [id number] [place] [address] Mar, [facility] [place] [facility] [address] [id number] [place] [address] Feb, [facility] [place] [facility] [address] [id number] [place] [address] Feb, [facility] [place] [facility] [address] [id number] [place] [address] Jan, [facility] [place] [facility] [address] [id number] [place] [address] Jan, [facility] [place] [facility] [address] [id number] [place] [address] Dec, [facility] [place] [facility] [address] [id number] [place] [address] Dec, [facility] [place] [facility] [address] [id number] [place] [address] October, [facility] [place] [facility] [address] [id number] [place] [address] October, [facility] [place] [facility] [address] [id number] [place] [address] October, [facility] [place] [facility] [address] [id number] [place] [address] October, [facility] [place] [facility] [address] [id number] [place] [address] October, [facility] [place] [facility] [address] [id number] [place] [address] October, [facility] [place] [facility] [address] [id number] [place] [address] 24 Sep, 2013 [facility] [place] [facility] [address] [id number] [place] [address] 24 Sep, 2013 [facility] [place] [facility] [address] [id number] [place] [address] Sep, [facility] [place] [facility] [address] [id number] [place] [address] Sep, [facility] [place] [facility] [address] [id number] [place] [address] Sep, [facility] [place] [facility] [address] [id number] [place] [address] Sep, [facility] [place] [facility] [address] [id number] [place] [address] Sep, [facility] [place] [facility] [address] [id number] [place] [address] Sep, [facility] [place] [facility] [address] [id number] [place] [address] 26 Aug, 2013 [facility] [place] [facility] [address] [id number] [place] [address] 14 Aug, 2013 [facility] [place] [facility] [address] [id number] [place] [address] 14 Aug, 2013 [facility] [place] [facility] [address] [id number] [place] [address] Aug, [facility] [place] [facility] [address] [id number] [place] [address] 13 Aug, 2013 [facility] [place] [facility] [address] [id number] [place] [address] 07 Aug, 2013 [facility] [place] [facility] [address] [id number] [place] [address] 24 Jul, 2013 [facility] [place] [facility] [address] [id number] [place] [address] Jul, [facility] [place] [facility] [address] [id number] [place] [address] Jul, [facility] [address] [id number] [place] [address] Jul, [facility] [address] [id number] [place] [address] May, [facility] [address] [id number] [place] [address] May, [facility] [place] [facility] [address] [id number] [place] [address] May, [facility] [address] [id number] [place] [address] May, [facility] [address] [facility] [id number] [place] [address] Apr, [facility] [place] [facility] [address] [id number] [place] [address] Apr, [facility] [address] [id number] [place] [address] Apr, [facility] [address] [id number] [place] [address] Apr, [facility] [address] [facility] [id number] [place] [address] Apr, [facility] [place] [facility] [address] [id number] [place] [address] Apr, [facility] [place] [facility] [address] [id number] [place] [address] Apr, [facility] [place] [facility] [address] [id number] [place] [address] Apr, [facility] [place] [facility] [address] [facility] [id number] [place] [address] Mar, [facility] [place] [facility] [address] [id number] [place] [address] Dec, [facility] [address] [id number] [place] [address] Dec, [facility] [place] [facility] [address] [id number] [place] [address] Nov, [facility] [place] [facility] [address] [id number] [place] [address] Nov, [facility] [place] [facility] [address] [id number] [place] [address] Nov, [facility] [place] [facility] [address] [id number] [place] [address] Sep, [facility] [place] [facility] [address] [id number] [place] [address] Aug, [facility] [place] [facility] [address] [id number] [place] [address] Aug, [facility] [place] [facility] [address] [id number] [place] [address] Aug, [facility] [place] [facility] [address] [id number] [place] [address] Aug, [facility] [place] [facility] [address] [id number] [place] [address] Jul, [facility] [place] [facility] [address] [id number] [place] [address] Jul, [facility] [place] [facility] [address] [id number] [address] May, [facility] [place] [facility] [address] [id number] [place] [address] May, [facility] [place] [facility] [address] [id number] [place] [address] May, [facility] [place] [facility] [address] [id number] [place] [address] Apr, [facility] [place] [facility] [address] [id number] [place] [address] Apr, [facility] [place] [facility] [address] [id number] [place] [address] Apr, [facility] [place] [facility] [address] [id number] [place] [address] Apr, [facility] [place] [facility] [address] [id number] [place] [address] Apr, [facility] [place] [facility] [address] [id number] [place] [address] Apr, [facility] [place] [facility] [address] [id number] [place] [address] Mar, [facility] [place] [facility] [address] [id number] [place] [address] Mar, [facility] [place] [facility] [address] [id number] [place] [address] Mar, [facility] [place] [facility] [address] [id number] [place] [address] 14 Feb, 2012 [facility] [place] [facility] [address] [id number] [place] [address] Feb, [facility] [place] [facility] [address] [facility] [id number] [place] [address] Feb, [facility] [place] [facility] [address] [id number] [place] [address] 24 Jan, 2012 [facility] [place] [facility] [address] [id number] [place] [address] Jan, [facility] [place] [facility] [address] [id number] [place] [address] 16 Jan, 2012 [facility] [place] [facility] [address] [id number] [place] [address] Jan, [facility] [place] [facility] [address] [id number] [place] [address] Dec, [facility] [place] [facility] [address] [id number] [place] [address] Dec, [facility] [address] [id number] [place] [address] Nov, [facility] [address] [id number] [place] [address] Nov, [facility] [address] [id number] [place] [address] October, [facility] [address] [id number] [place] [address] October, [facility] [address] [id number] [place] [address] Sep, [facility] [address] [id number] [place] [address] Aug, [facility] [address] [id number] [place] [address] Aug, [facility] [address] [id number] [place] [address] Jul, [facility] [address] [id number] [place] [address] Jun, [facility] [address] [id number] [place] [address] Jun, [facility] [address] [id number] [place] [address] Jun, [facility] [address] [id number] [place] [address] Jun, [facility] [address] [id number] [place] [address] May, [facility] [address] [id number] [place] [address] May, [facility] [address] [id number] [address] Mar, [facility] [address] [id number] [address] Mar, [facility] [id number] [address] Feb, [facility] [id number] [address] Dec, [facility] [id number] [address] Aug, [facility] [facility] [id number] [address] Aug, [facility] [id number] [address] May, [facility] [id number] [address] Jan, [facility] [id number] [address] Apr, [facility] [id number] [address] Apr, [facility] [id number] [address] Jan, [facility] [id number] [address] Aug, IMMUNIZATIONS No Known Immunizations SOCIAL HISTORY Never Assessed REASON FOR VISIT PLAN OF CARE VITAL SIGNS Height 64 in 2014-09-10 Weight 174 lbs 2014-09-10 Temperature 98 degrees Fahrenheit 2014-09-10 Heart Rate 70 bpm 2014-09-10 Respiratory Rate 20 2014-09-10 Blood pressure systolic 140 mmHg 2014-09-10 Blood pressure diastolic 70 mmHg 2014-09-10 MEDICATIONS Unknown Medications RESULTS No Results PROCEDURES [...]
--- OUTSIDE RECORDS SUMMARY | 2019-01-20 14:48 | XMS REPORT ---
Author Author Migration, Doctor Organization [facility] Address Unknown Phone Unavailable Care Team Providers [facility] [employer] [facility] A[facility] Name Role Phone Migration, Doctor Unavailable Unavailable PROBLEMS Type Condition ICD9-CM Code XQA89-GY Code Onset Dates Condition Status SNOMED Code Problem Anxiety F41.9 Active 77712364 Problem Flat foot [pes planus] (acquired), right foot M21.41 Active 16750826 Problem Alzheimers disease with early onset G30.0 Active 4808949 Problem Diabetes E11.9 Active 326248258 Problem Moderate episode of recurrent major depressive disorder F33.1 Active 182330674 Problem Uncontrolled type 2 diabetes mellitus without complication, without long- term current use of insulin E11.65 Active 920492492 Problem Arthritis M19.90 Active 4873140 Problem Diabetic polyneuropathy associated with type 2 diabetes mellitus E11.42 Active 38375031 Problem Type 2 diabetes mellitus with unspecified diabetic retinopathy without macular edema E11.319 Active 134952770 Problem Seasonal allergies J30.2 Active 024337438 Problem Dementia in other diseases classified elsewhere with behavioral disturbance F02.81 Active 913335002 Problem Presence of right artificial hip joint Z96.641 Active 503973149 Problem Type 2 diabetes mellitus with hyperglycemia E11.65 Active 335813331862307 Problem Other chronic pain G89.29 Active 00744356 Problem Major depressive disorder, recurrent, in full remission F33.42 Active 041502179 Problem Corns L84 Active 766502126 Problem Alzheimer''s disease, unspecified G30.9 Active 6359677871993 Problem Dementia with behavioral disturbance, unspecified dementia type F03.91 Active 0861780858105 Problem Vascular dementia with behavior disturbance F01.51 Active 838588019045708 Problem Alzheimer''s disease with early onset G30.0 Active 1742669 ALLERGIES Substance Reaction Event Type Date Status Cozaar 25 Mg Tablet Unknown Non Drug Allergy Sep, Active Lisinopril 5 Mg Tablet Unknown Non Drug Allergy Sep, Active ENCOUNTERS Encounter Location Date Diagnosis [facility] [address] [facility] [id number] [place] [address] Nov, [place] [address] [place] [id number] [place], [place] [id number] Sep, Major depressive disorder, recurrent, in full remission F33.42 ; Other chronic pain G89.29 ; Presence of right artificial hip joint Z96.641 ; Pain in right hip M25.551 and Calcaneal spur of right foot M77.31 [place] [id number] [place] [address] Jun, Uncontrolled type 2 diabetes mellitus without complication, without long-term current use of insulin E11.65 ; Alzheimer''s disease with early onset G30.0 and Dementia in other diseases classified elsewhere with behavioral disturbance F02.81 [place] [id number] [place] [address] May, Vascular dementia with behavior disturbance F01.[address] [address] Apr, Dementia with behavioral disturbance, unspecified dementia type F03.[address] [address] Apr, Diabetic polyneuropathy associated with type 2 diabetes mellitus E11.42 [place] [id number] [place] [address] Mar, Dysfunction of both eustachian tubes H69.83 [place] [address] [place] [id number] [place] [address] Mar, Annual physical exam Z00.[address] [address] Mar, Diabetic polyneuropathy associated with type 2 diabetes mellitus E11.42 ; Pain of left foot M79.672 ; Pain in right foot M79.671 ; Alzheimer''s disease, unspecified G30.9 and Dementia in other diseases classified elsewhere with behavioral disturbance F02.81 [facility] [address] [place] [address] [place] [address] Nov, Diabetes E11.9 and Seasonal allergies J30.[address] [address] October, Type 2 diabetes mellitus with hyperglycemia E11.65 and Type 2 diabetes mellitus with unspecified diabetic retinopathy without macular edema E11.[address] [address] October, Diabetes E11.9 ; Alzheimers disease with early onset G30.0 ; Arthritis M19.90 ; Diabetic polyneuropathy associated with type 2 diabetes mellitus E11.42 and Major depressive disorder, recurrent, in full remission F33.[address] [address] Sep, [address] [address] Sep, Dysfunction of both eustachian tubes H69.83 [place] [id number] [place] [address] Aug, Alzheimer''s disease with early onset G30.0 ; Dementia in other diseases classified elsewhere with behavioral disturbance F02.81 ; 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 and Type 2 diabetes mellitus with hyperglycemia E11.65 [place] [address] [place] [id number] [place] [address] Jul, [place] [address] [place] [id number] [place] [address] Jul, Alzheimer''s disease with early onset G30.0 ; Dementia in other diseases classified elsewhere with behavioral disturbance F02.81 and Uncontrolled type 2 diabetes mellitus without complication, without long-term current use of insulin E11.65 [place] [address] [place] [id number] [place] [address] May, Diabetes type 2, controlled E11.9 ; Bilateral otitis media with effusion H65.93 and Dizziness R42 [facility] [address] [place] [id number] [place] [address] 17 Apr, 2017 Dysuria R30.0 and Acute cystitis with hematuria N30.01 [place] [address] [address] 02 Apr, 2017 Moderate episode of recurrent major depressive disorder F33.1 [facility] [address] [address] 18 Mar, 2017 Acute cystitis without hematuria N30.00 [place] [address] [address] 28 Feb, 2017 Uncontrolled type 2 diabetes mellitus without complication, without long-term current use of insulin E11.65 ; Other Alzheimer''s disease G30.8 and Dementia in other diseases classified elsewhere without behavioral disturbance F02.[address] [address] Jan, Diabetes type 2, controlled E11.9 and Alzheimers disease with early onset G30.0 [facility] [place] [address] [address] Dec, Allergic contact dermatitis due to plants, except food L23.7 [facility] [place] [id number] [place] [address] 18 Dec, 2016 Dysuria R30.0 and Candidiasis of female genitalia B37.3 [place] [address] [place] [id number] [place] [address] 14 Dec, 2016 Diabetes E11.9 and Alzheimers disease with early onset G30.0 [facility] [place] [id number] [place] [address] Nov, Acute exacerbation of chronic obstructive pulmonary disease (COPD) J44.1 and Vaginal candidiasis B37.3 [place] [address] [place] [id number] [place] [address] 15 Nov, 2016 Controlled type 2 diabetes mellitus without complication, without long-term current use of insulin E11.9 and Other Alzheimers disease G30.8 [place] [address] [place] [id number] [place] [address] October, OME (otitis media with effusion), bilateral H65.93 ; Dizziness R42 and Diabetes E11.9 [facility] [place] [address] [place] [id number] [place] [address] Sep, Vertigo R42 ; Heart murmur R01.1 and Dysfunction of inner ear, bilateral H83.93 [place] [address] [address] Aug, Acute suppurative otitis media of both ears without spontaneous rupture of tympanic membranes, recurrence not specified H66.003 [facility] [address] [address] Aug, Vaginal irritation N89.8 and Acute exacerbation of chronic obstructive pulmonary disease (COPD) J44.[address] [address] Jul, Dementia in other diseases classified elsewhere without behavioral disturbance F02.[address] [address] Jul, [address] [address] Jun, Diabetes type 2, controlled E11.9 ; Alzheimers disease with early onset G30.0 and Dementia in other diseases classified elsewhere without behavioral disturbance F02.80 [place] [address] [place] [id number] [place] [address] May, Diabetes type 2, controlled E11.9 [facility] [address] [address] May, Vaginal candidiasis B37.3 and Dysuria R30.0 [facility] [place] [id number] [place] [address] 05 May, 2016 Cutaneous abscess of head [any part, except face] L02.811 ; Cellulitis of head [any part, except face] L03.811 ; COPD exacerbation J44.1 and Wheezing R06.2 [place] [address] [place] [id number] [place] [address] Apr, [place] [address] [address] Apr, Diabetes E11.9 ; Acute upper respiratory infection, unspecified J06.9 and Vagina, candidiasis B37.3 [facility] [place] [address] [address] Mar, Acute exacerbation of chronic obstructive pulmonary disease (COPD) J44.1 [place] [address] [address] Mar, Diabetes type 2, controlled E11.9 [facility] [place] [address] [address] Feb, Acute bronchitis, unspecified organism J20.9 [place] [address] [place] [id number] [place] [address] Feb, Controlled type 2 diabetes mellitus without complication, without long-term current use of insulin E11.9 [place] [address] [place] [id number] [place] [address] Jan, Controlled type 2 diabetes mellitus without complication, without long-term current use of insulin E11.9 and Anxiety F41.9 [place] [address] [place] [id number] [place] [address] Dec, [place] [address] [address] Nov, Diabetes type 2, controlled E11.9 [place] [address] [place] [id number] [place] [address] Nov, Acute pain of left shoulder M25.512 [facility] [place] [address] [address] October, Cellulitis of face L03.211 [place] [address] [place] [id number] [place] [address] October, Diabetes type 2, controlled E11.9 [place] [address] [place] [id number] [place] [address] October, Diabetes type 2, controlled E11.9 [place] [address] [place] [id number] [place] [address] Sep, Generalized anxiety disorder F41.1 ; Depression F32.9 and FH: memory loss Z82.0 [place] [address] [address] Sep, FH: memory loss Z82.0 ; Major depression, recurrent F33.9 and Anxiety disorder, unspecified F41.9 [place] [address] [address] Aug, PTSD (post-traumatic stress disorder) F43.10 ; Generalized anxiety disorder F41.1 and FH: memory loss Z82.0 [place] [address] [place] [id number] [place] [address] Aug, FH: memory loss Z82.0 ; Depression F32.9 and PTSD (post-traumatic stress disorder) F43.10 [place] [address] [place] [id number] [place] [address] Jul, Major depression, recurrent F33.9 ; Generalized anxiety disorder F41.1 and Alzheimer disease G30.9 [place] [address] [place] [id number] [place] [address] Jul, Diabetes E11.9 and Mood disorder F39 [place] [address] [place] [id number] [place] [address] Jul, Dental examination Z01.20 [place] [address] [place] [id number] [place] [address] Apr, Exertional dyspnea R06.09 and Chronic obstructive pulmonary disease, unspecified COPD type J44.9 [facility] [address] [address] Mar, [facility] [address] [place] [id number] [place] [address] Mar, Diabetes E11.9 [facility] [address] [place] [id number] [place] [address] Mar, Diabetes E11.9 ; COPD (chronic obstructive pulmonary disease) J44.9 and Hip pain, right M25.551 [facility] [address] [place] [id number] [place] [address] Dec, [facility] [address] [place] [id number] [place] [address] Nov, COPD exacerbation 491.21 and Wheezing 786.07 [facility] [address] [place] [id number] [place] [address] October, Acute contact dermatitis 692.9 and Anhedonia 780.99 [facility] [address] [place] [id number] [place] [address] October, [facility] [address] [place] [id number] [place] [address] Sep, [facility] [address] [address] Sep, [facility] [address] [place] [id number] [place] [address] Aug, [facility] [address] [address] Aug, [facility] [address] [place] [id number] [place] [address] Aug, [facility] [address] [address] Aug, [facility] [id number] [place] [address] Jul, 2014 [facility] [place] [facility] [address] [id number] [place] [address] Jul, 2014 [facility] [place] [facility] [address] [id number] [place] [address] Jul, 2014 [facility] [place] [facility] [address] [id number] [place] [address] Jul, 2014 [facility] [place] [facility] [address] [id number] [place] [address] Jul, 2014 [facility] [place] [facility] [address] [id number] [place] [address] Jul, 2014 [facility] [place] [facility] [address] [facility] [id number] [place] [address] May, [facility] [place] [facility] [address] [id number] [place] [address] May, [facility] [place] [facility] [address] [id number] [place] [address] May, [facility] [place] [facility] [address] [id number] [place] [address] May, [facility] [place] [facility] [address] [facility] [id number] [place] [address] May, [facility] [place] [facility] [address] [id number] [place] [address] May, [facility] [place] [facility] [address] [id number] [place] [address] Apr, [facility] [place] [facility] [address] [id number] [place] [address] Apr, [facility] [place] [facility] [address] [id number] [place] [address] Apr, [facility] [place] [facility] [address] [id number] [place] [address] Apr, [facility] [place] [facility] [address] [id number] [place] [address] Mar, [facility] [place] [facility] [address] [id number] [place] [address] Mar, [facility] [place] [facility] [address] [id number] [place] [address] Feb, [facility] [place] [facility] [address] [id number] [place] [address] Feb, [facility] [place] [facility] [address] [id number] [place] [address] Jan, [facility] [place] [facility] [address] [id number] [place] [address] Jan, [facility] [place] [facility] [address] [id number] [place] [address] Dec, [facility] [place] [facility] [address] [id number] [place] [address] Dec, [facility] [place] [facility] [address] [id number] [place] [address] October, [facility] [place] [facility] [address] [id number] [place] [address] October, [facility] [place] [facility] [address] [id number] [place] [address] October, [facility] [place] [facility] [address] [id number] [place] [address] October, [facility] [place] [facility] [address] [id number] [place] [address] October, [facility] [place] [facility] [address] [id number] [place] [address] October, [facility] [place] [facility] [address] [id number] [place] [address] Sep, [facility] [place] [facility] [address] [id number] [place] [address] 24 Sep, 2013 [facility] [address] [id number] [place] [address] Sep, [facility] [place] [facility] [address] [id number] [place] [address] 18 Sep, 2013 [facility] [place] [facility] [address] [id number] [place] [address] Sep, [facility] [place] [facility] [address] [id number] [place] [address] Sep, [facility] [place] [facility] [address] [id number] [place] [address] Sep, [facility] [place] [facility] [address] [id number] [place] [address] Sep, [facility] [place] [facility] [address] [id number] [place] [address] 26 Aug, 2013 [facility] [place] [facility] [address] [id number] [place] [address] 14 Aug, 2013 [facility] [place] [facility] [address] [id number] [place] [address] 14 Aug, 2013 [facility] [place] [facility] [address] [id number] [place] [address] 13 Aug, 2013 [facility] [place] [facility] [address] [id number] [place] [address] 13 Aug, 2013 [facility] [place] [facility] [address] [id number] [place] [address] 07 Aug, 2013 [facility] [place] [facility] [address] [id number] [place] [address] 24 Jul, 2013 [facility] [place] [facility] [address] [id number] [place] [address] 24 Jul, 2013 [facility] [place] [facility] [address] [id number] [place] [address] Jul, [facility] [address] [id number] [place] [address] Jul, [facility] [place] [facility] [address] [id number] [place] [address] May, [facility] [place] [facility] [address] [id number] [place] [address] May, [facility] [place] [facility] [address] [id number] [place] [address] May, [facility] [place] [facility] [address] [id number] [place] [address] May, [facility] [place] [facility] [address] [id number] [place] [address] Apr, [facility] [place] [facility] [address] [id number] [place] [address] Apr, [facility] [place] [facility] [address] [id number] [address] Apr, [facility] [place] [facility] [address] [id number] [place] [address] Apr, [facility] [place] [facility] [address] [id number] [address] Apr, [facility] [place] [facility] [address] [id number], [place] [address] Apr, [facility] [place] [facility] [address] [id number], [place] [address] Apr, [facility] [place] [facility] [address] [id number], [place] [address] Apr, [facility] [place] [facility] [address] [id number], [place] [address] Mar, [facility] [place] [facility] [address] [facility] [id number], [place] [address] Dec, [facility] [place] [facility] [address] [id number] [place] [address] Dec, [facility] [address] [id number] [place] [address] Nov, [facility] [place] [facility] [address] [id number] [place] [address] Nov, [facility] [place] [facility] [address] [id number] [place] [address] Nov, [facility] [place] [facility] [address] [id number] [place] [address] Sep, [facility] [place] [facility] [address] [id number] [place] [address] Aug, [facility] [place] [facility] [address] [id number] [place] [address] Aug, [facility] [address] [id number] [place] [address] Aug, [facility] [place] [facility] [address] [id number] [place] [address] Aug, [facility] [place] [facility] [address] [id number] [place] [address] Jul, [facility] [place] [facility] [address] [facility] [id number] [place] [address] Jul, [facility] [place] [facility] [address] [id number] [place] [address] May, [facility] [place] [facility] [address] [id number] [place] [address] May, [facility] [place] [facility] [address] [id number] [place] [address] May, [facility] [place] [facility] [address] [id number] [place] [address] Apr, [facility] [place] [facility] [address] [id number] [place] [address] Apr, [facility] [place] [facility] [address] [id number] [place] [address] Apr, [facility] [place] [facility] [address] [id number] [place] [address] Apr, [facility] [place] [facility] [address] [id number] [place] [address] Apr, [facility] [place] [facility] [address] [id number] [place] [address] Apr, [facility] [place] [facility] [address] [id number] [place] [address] Mar, [facility] [place] [facility] [address] [id number] [place] [address] Mar, [facility] [place] [facility] [address] [id number] [place] [address] Mar, [facility] [place] [facility] [address] [id number] [place] [address] 14 Feb, 2012 [facility] [place] [facility] [address] [id number] [place] [address] Feb, [facility] [place] [facility] [address] [id number] [place] [address] Feb, [facility] [place] [facility] [address] [id number] [place] [address] Jan, [facility] [place] [facility] [address] [id number] [place] [address] Jan, [facility] [place] [facility] [address] [id number] [place] [address] 16 Jan, 2012 [facility] [place] [facility] [address] [id number] [place] [address] Jan, [facility] [place] [facility] [address] [id number] [place] [address] Dec, [facility] [place] [facility] [address] [id number] [place] [address] Dec, [facility] [address] [id number] [place] [address] Nov, [facility] [place] [facility] [address] [id number] [place] [address] Nov, [facility] [place] [facility] [address] [id number] [place] [address] October, [facility] [place] [facility] [address] [id number] [place] [address] October, [facility] [place] [facility] [address] [id number] [place] [address] Sep, [facility] [place] [facility] [address] [id number] [place] [address] Aug, [facility] [place] [facility] [address] [id number] [place] [address] Aug, [facility] [place] [facility] [address] [id number] [place] [address] Jul, [facility] [place] [facility] [address] [id number] [place] [address] Jun, [facility] [place] [facility] [address] [id number] [place] [address] Jun, [facility] [place] [facility] [address] [id number] [place] [address] Jun, [facility] [place] [facility] [address] [id number] [place] [address] Jun, [facility] [place] [facility] [address] [id number] [place] [address] May, [facility] [place] [facility] [address] [id number] [place] [address] May, [facility] [place] [facility] [address] [id number] [place] [address] Mar, [facility] [place] [facility] [address] [id number] [address] Mar, [facility] [address] [id number] [address] Feb, [facility] [address] [facility] [id number], [place] [address] Dec, [facility] [id number] [address] Aug, [facility] [address] [facility] [id number], [place] [address] Aug, [facility] [id number] [address] May, [facility] [id number] [address] Jan, [facility] [facility] [id number] [address] Apr, [facility] [id number] [address] Apr, [facility] [id number] [address] Jan, [facility] [id number] [address] Aug, IMMUNIZATIONS No Known Immunizations SOCIAL HISTORY Never Assessed REASON FOR VISIT [facility] [place] VITAL SIGNS MEDICATIONS Medication Instructions Dosage Frequency Start Date End Date Duration Status sertraline 100 mg 1 tablet by Oral route 2 times per day October, Active PredniSONE 20 mg tablet by Oral route1 tab bid x 5 days. then 1/2 tab bid x 5 days then 1/2 tab daily x 5 days. Mar, Active Albuterol Sulfate 90 mcg/actuation 2 puffs by Inhalation route every 4-6 hours as needed PRN cough or wheezing Apr, Active metformin 1,000 mg 1 tablet by Oral route 2 times per day October, Active Omnicef 300 mg 2 capsule by Oral route 1 time per day for 7 day(s) 08 Apr, 2014 Active Clindamycin HCl 300 mg 1 capsule by Oral route every 12 hours for 7 day(s) Nov, Active Clotrimazole 1 % 1 appful 1 time per day for 7 day(s) Jul, Active Cipro 500 mg take 1 tablet (500 mg) by oral route 2 times per day Jun, Active Bactrim DS 800-160 mg 1 tablet by Oral route 2 times per day for 10 day(s) Aug, Active Advair Diskus 500 mcg-50 mcg 2 puffs by Inhalation route every 12 hours Nov, Active Zithromax Z-Arturo 250 mg 2 tablet by Oral route 1 time per day for 1 days then take 1 tab daily on days 2-5 Jul, Active Augmentin 875-125 mg 1 tablet by Oral route 2 times per day for 10 day(s) Aug, Active MethylPREDNISolone 4 mg by Oral route every day for 6 days as directed per dose pack Jul, Active RESULTS No Results PROCEDURES No Known procedures [...]
--- OUTSIDE RECORDS SUMMARY | 2019-01-20 14:49 | XMS REPORT ---
Author Author Migration, Doctor Organization [facility] Address Unknown Phone Unavailable Care Team Providers Care Production Aide Name Role Phone Migration, Doctor Unavailable Unavailable PROBLEMS Type Condition ICD9-CM Code ZTD49-QD Code Onset Dates Condition Status SNOMED Code Problem Anxiety F41.9 Active 24067756 Problem Flat foot [pes planus] (acquired), right foot M21.41 Active 88325433 Problem Alzheimers disease with early onset G30.0 Active 0534864 Problem Diabetes E11.9 Active 650850664 Problem Moderate episode of recurrent major depressive disorder F33.1 Active 623380105 Problem Uncontrolled type 2 diabetes mellitus without complication, without long- term current use of insulin E11.65 Active 639985680 Problem Arthritis M19.90 Active 2514098 Problem Diabetic polyneuropathy associated with type 2 diabetes mellitus E11.42 Active 62830675 Problem Type 2 diabetes mellitus with unspecified diabetic retinopathy without macular edema E11.319 Active 877184829 Problem Seasonal allergies J30.2 Active 108552746 Problem Dementia in other diseases classified elsewhere with behavioral disturbance F02.81 Active 130925997 Problem Presence of right artificial hip joint Z96.641 Active 273586235 Problem Type 2 diabetes mellitus with hyperglycemia E11.65 Active 442982336356581 Problem Other chronic pain G89.29 Active 70122828 Problem Major depressive disorder, recurrent, in full remission F33.42 Active 480428651 Problem Corns L84 Active 789138245 Problem Alzheimer''s disease, unspecified G30.9 Active 6624434425155 Problem Dementia with behavioral disturbance, unspecified dementia type F03.91 Active 6424962297149 Problem Vascular dementia with behavior disturbance F01.51 Active 335210795119258 Problem Alzheimer''s disease with early onset G30.0 Active 1244927 ALLERGIES No Information ENCOUNTERS Encounter Location Date Diagnosis [facility] [address] [facility] [id number] [place] [address] Sep, Major depressive disorder, recurrent, in full remission F33.42 ; Other chronic pain G89.29 ; Presence of right artificial hip joint Z96.641 ; Pain in right hip M25.551 and Calcaneal spur of right foot M77.[address] [address] Jun, Uncontrolled type 2 diabetes mellitus without complication, without long-term current use of insulin E11.65 ; Alzheimer''s disease with early onset G30.0 and Dementia in other diseases classified elsewhere with behavioral disturbance F02.81 [place] [address] [address] May, Vascular dementia with behavior disturbance F01.[address] [address] Apr, Dementia with behavioral disturbance, unspecified dementia type F03.[address] [address] Apr, Diabetic polyneuropathy associated with type 2 diabetes mellitus E11.[address] [address] Mar, Dysfunction of both eustachian tubes H69.[address] [address] Mar, Annual physical exam Z00.[address] [address] Mar, Diabetic polyneuropathy associated with type 2 diabetes mellitus E11.42 ; Pain of left foot M79.672 ; Pain in right foot M79.671 ; Alzheimer''s disease, unspecified G30.9 and Dementia in other diseases classified elsewhere with behavioral disturbance F02.81 [facility] [address] [address] Nov, Diabetes E11.9 and Seasonal allergies J30.[address] [address] October, Type 2 diabetes mellitus with hyperglycemia E11.65 and Type 2 diabetes mellitus with unspecified diabetic retinopathy without macular edema E11.319 [place] [address] [place] [id number] [place] [address] October, Diabetes E11.9 ; Alzheimers disease with early onset G30.0 ; Arthritis M19.90 ; Diabetic polyneuropathy associated with type 2 diabetes mellitus E11.42 and Major depressive disorder, recurrent, in full remission F33.42 [place] [address] [place] [id number] [place] [address] Sep, [place] [address] [place] [id number] [place] [address] Sep, Dysfunction of both eustachian tubes H69.83 [place] [id number] [place] [address] Aug, Alzheimer''s disease with early onset G30.0 ; Dementia in other diseases classified elsewhere with behavioral disturbance F02.81 ; 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 and Type 2 diabetes mellitus with hyperglycemia E11.65 [place] [address] [place] [id number] [place] [address] Jul, [place] [id number] [place] [address] Jul, Alzheimer''s disease with early onset G30.0 ; Dementia in other diseases classified elsewhere with behavioral disturbance F02.81 and Uncontrolled type 2 diabetes mellitus without complication, without long-term current use of insulin E11.65 [place] [address] [place] [id number] [place] [address] May, Diabetes type 2, controlled E11.9 ; Bilateral otitis media with effusion H65.93 and Dizziness R42 [facility] [address] [place] [id number] [place] [address] Apr, Dysuria R30.0 and Acute cystitis with hematuria N30.01 [place] [id number] [place] [address] Apr, Moderate episode of recurrent major depressive disorder F33.1 [facility] [place] [address] [address] Mar, Acute cystitis without hematuria N30.00 [place] [address] [address] Feb, Uncontrolled type 2 diabetes mellitus without complication, without long-term current use of insulin E11.65 ; Other Alzheimer''s disease G30.8 and Dementia in other diseases classified elsewhere without behavioral disturbance F02.80 [place] [address] [address] Jan, Diabetes type 2, controlled E11.9 and Alzheimers disease with early onset G30.0 [facility] [place] [address] [address] Dec, Allergic contact dermatitis due to plants, except food L23.7 [facility] [address] [address] Dec, Dysuria R30.0 and Candidiasis of female genitalia B37.[address] [address] Dec, Diabetes E11.9 and Alzheimers disease with early onset G30.0 [facility] [address] [address] Nov, Acute exacerbation of chronic obstructive pulmonary disease (COPD) J44.1 and Vaginal candidiasis B37.3 [place] [address] [address] 15 Nov, 2016 Controlled type 2 diabetes mellitus without complication, without long-term current use of insulin E11.9 and Other Alzheimers disease G30.8 [place] [address] [place] [id number] [place] [address] October, OME (otitis media with effusion), bilateral H65.93 ; Dizziness R42 and Diabetes E11.9 [facility] [place] [id number] [place] [address] Sep, Vertigo R42 ; Heart murmur R01.1 and Dysfunction of inner ear, bilateral H83.93 [place] [id number] [place] [address] Aug, Acute suppurative otitis media of both ears without spontaneous rupture of tympanic membranes, recurrence not specified H66.003 [facility] [address] [address] Aug, Vaginal irritation N89.8 and Acute exacerbation of chronic obstructive pulmonary disease (COPD) J44.[address] [address] Jul, Dementia in other diseases classified elsewhere without behavioral disturbance F02.[address] [address] Jul, [address] [address] Jun, Diabetes type 2, controlled E11.9 ; Alzheimers disease with early onset G30.0 and Dementia in other diseases classified elsewhere without behavioral disturbance F02.80 [place] [id number] [place] [address] May, Diabetes type 2, controlled E11.9 [facility] [place] [id number] [place] [address] May, Vaginal candidiasis B37.3 and Dysuria R30.0 [facility] [address] [address] 05 May, 2016 Cutaneous abscess of head [any part, except face] L02.811 ; Cellulitis of head [any part, except face] L03.811 ; COPD exacerbation J44.1 and Wheezing R06.[address] [address] Apr, [facility] [id number] [place] [address] Apr, Diabetes E11.9 ; Acute upper respiratory infection, unspecified J06.9 and Vagina, candidiasis B37.3 [facility] [address] [place] [id number] [place] [address] Mar, Acute exacerbation of chronic obstructive pulmonary disease (COPD) J44.1 [place] [address] [place] [id number] [place] [address] Mar, Diabetes type 2, controlled E11.9 [facility] [address] [place] [id number] [place] [address] Feb, Acute bronchitis, unspecified organism J20.9 [place] [address] [place] [id number] [place] [address] Feb, Controlled type 2 diabetes mellitus without complication, without long-term current use of insulin E11.9 [place] [address] [place] [id number] [place] [address] Jan, Controlled type 2 diabetes mellitus without complication, without long-term current use of insulin E11.9 and Anxiety F41.9 [place] [address] [place] [id number] [place] [address] Dec, [place] [address] [place] [id number] [place] [address] Nov, Diabetes type 2, controlled E11.9 [place] [id number] [place] [address] Nov, Acute pain of left shoulder M25.512 [facility] [place] [address] [place] [id number] [place] [address] October, Cellulitis of face L03.211 [place] [address] [place] [id number] [place] [address] October, Diabetes type 2, controlled E11.9 [place] [address] [place] [id number] [place] [address] October, Diabetes type 2, controlled E11.9 [place] [address] [address] Sep, Generalized anxiety disorder F41.1 ; Depression F32.9 and FH: memory loss Z82.0 [place] [address] [address] Sep, FH: memory loss Z82.0 ; Major depression, recurrent F33.9 and Anxiety disorder, unspecified F41.9 [place] [address] [address] Aug, PTSD (post-traumatic stress disorder) F43.10 ; Generalized anxiety disorder F41.1 and FH: memory loss Z82.0 [place] [address] [address] Aug, FH: memory loss Z82.0 ; Depression F32.9 and PTSD (post-traumatic stress disorder) F43.10 [place] [address] [place] [id number] [place] [address] Jul, Major depression, recurrent F33.9 ; Generalized anxiety disorder F41.1 and Alzheimer disease G30.9 [place] [address] [address] Jul, Diabetes E11.9 and Mood disorder F39 [place] [address] [address] Jul, Dental examination Z01.[address] [address] Apr, Exertional dyspnea R06.09 and Chronic obstructive pulmonary disease, unspecified COPD type J44.9 [place] [address] [address] 15 Mar, 2015 [place] [address] [place] [address] Mar, Diabetes E11.9 [facility] [address] [place] [id number] [place] [address] Mar, Diabetes E11.9 ; COPD (chronic obstructive pulmonary disease) J44.9 and Hip pain, right M25.551 [facility] [address] [place] [id number] [place] [address] Dec, [facility] [address] [place] [id number] [place] [address] Nov, COPD exacerbation 491.21 and Wheezing 786.07 [facility] [address] [place] [id number] [place] [address] October, Acute contact dermatitis 692.9 and Anhedonia 780.99 [facility] [address] [place] [id number] [place] [address] October, [facility] [address] [place] [id number] [place] [address] Sep, [facility] [address] [address] Sep, [facility] [address] [place] [id number] [address] Aug, [facility] [address] [address] Aug, [facility] [address] [place] [address] Aug, [facility] [address] [address] Aug, [facility] [address] [address] Jul, [facility] [address] [address] Jul, [facility] [address] [place] [id number] [place] [address] Jul, 2014 [facility] [place] [facility] [address] [id number] [place] [address] Jul, 2014 [facility] [place] [facility] [address] [id number] [place] [address] Jul, 2014 [facility] [place] [facility] [address] [id number] [place] [address] Jul, 2014 [facility] [place] [facility] [address] [id number] [place] [address] May, [facility] [place] [facility] [address] [id number] [place] [address] May, [facility] [place] [facility] [address] [id number] [place] [address] May, [facility] [place] [facility] [address] [id number] [place] [address] May, [facility] [place] [facility] [address] [id number] [place] [address] May, [facility] [place] [facility] [address] [facility] [id number] [place] [address] May, [facility] [place] [facility] [address] [facility] [id number] [place] [address] Apr, [facility] [place] [facility] [address] [id number] [place] [address] Apr, [facility] [place] [facility] [address] [id number] [place] [address] Apr, [facility] [place] [facility] [address] [id number] [place] [address] Apr, [facility] [place] [facility] [address] [id number] [place] [address] Mar, [facility] [place] [facility] [address] [id number] [place] [address] Mar, [facility] [place] [facility] [address] [id number] [place] [address] Feb, [facility] [place] [facility] [address] [id number] [place] [address] Feb, [facility] [place] [facility] [address] [id number] [place] [address] Jan, [facility] [place] [facility] [address] [id number] [place] [address] Jan, [facility] [place] [facility] [address] [id number] [place] [address] Dec, [facility] [place] [facility] [address] [id number] [place] [address] Dec, [facility] [place] [facility] [address] [id number] [place] [address] October, [facility] [place] [facility] [address] [id number] [place] [address] October, [facility] [place] [facility] [address] [id number] [place] [address] October, [facility] [place] [facility] [address] [id number] [place] [address] October, [facility] [place] [facility] [address] [id number] [place] [address] October, [facility] [place] [facility] [address] [id number] [place] [address] October, [facility] [place] [facility] [address] [id number] [place] [address] Sep, [facility] [place] [facility] [address] [id number] [place] [address] Sep, [facility] [place] [facility] [address] [id number] [place] [address] Sep, [facility] [place] [facility] [address] [id number] [place] [address] 18 Sep, 2013 [facility] [place] [facility] [address] [id number] [place] [address] 10 Sep, 2013 [facility] [place] [facility] [address] [id number] [place] [address] 10 Sep, 2013 [facility] [place] [facility] [address] [id number] [place] [address] 08 Sep, 2013 [facility] [place] [facility] [address] [id number] [place] [address] 08 Sep, 2013 [facility] [place] [facility] [address] [id number] [place] [address] 26 Aug, 2013 [facility] [place] [facility] [address] [id number] [place] [address] 14 Aug, 2013 [facility] [place] [facility] [address] [id number] [place] [address] 14 Aug, 2013 [facility] [place] [facility] [address] [id number] [place] [address] Aug, [facility] [place] [facility] [address] [id number] [place] [address] Aug, [facility] [place] [facility] [address] [facility] [id number] [place] [address] Aug, [facility] [place] [facility] [address] [id number] [place] [address] 24 Jul, 2013 [facility] [place] [facility] [address] [id number] [place] [address] Jul, [facility] [place] [facility] [address] [id number] [place] [address] Jul, [facility] [place] [facility] [address] [id number] [place] [address] Jul, [facility] [place] [facility] [address] [id number] [place] [address] May, [facility] [address] [id number] [place] [address] May, [facility] [place] [facility] [address] [id number] [place] [address] May, [facility] [place] [facility] [address] [id number] [place] [address] May, [facility] [place] [facility] [address] [id number] [place] [address] Apr, [facility] [place] [facility] [address] [id number] [place] [address] Apr, [facility] [place] [facility] [address] [id number] [place] [address] Apr, [facility] [place] [facility] [address] [id number] [place] [address] Apr, [facility] [place] [facility] [address] [id number], [place] [address] Apr, [facility] [place] [facility] [address] [id number] [place] [address] Apr, [facility] [place] [facility] [address] [id number], [place] [address] Apr, [facility] [place] [facility] [address] [id number], [place] [address] Apr, [facility] [place] [facility] [address] [id number], [place] [address] Mar, [facility] [place] [facility] [address] [id number], [place] [address] Dec, [facility] [place] [facility] [address] [id number], [place] [address] Dec, [facility] [place] [facility] [address] [facility] [id number], [place] [address] Nov, [facility] [place] [facility] [address] [id number], [place] [address] Nov, [facility] [address] [id number] [place] [address] Nov, [facility] [place] [facility] [address] [id number] [place] [address] Sep, [facility] [place] [facility] [address] [facility] [id number] [place] [address] Aug, [facility] [place] [facility] [address] [id number] [place] [address] Aug, [facility] [address] [id number] [place] [address] 08 Aug, 2012 [facility] [place] [facility] [address] [facility] [id number] [place] [address] Aug, [facility] [address] [place] [id number] [place] [address] Jul, [facility] [place] [facility] [address] [facility] [id number] [place] [address] Jul, [facility] [address] [facility] [id number] [place] [address] May, [facility] [place] [facility] [address] [facility] [id number] [place] [address] May, [facility] [address] [facility] [id number] [place] [address] May, [facility] [place] [facility] [address] [facility] [id number] [place] [address] Apr, [facility] [place] [facility] [address] [id number] [place] [address] Apr, [facility] [place] [facility] [address] [facility] [id number] [place] [address] Apr, [facility] [place] [facility] [address] [place] [id number] [place] [address] Apr, [facility] [place] [facility] [address] [id number] [place] [address] Apr, [facility] [place] [facility] [address] [id number] [place] [address] Apr, [facility] [place] [facility] [address] [id number] [place] [address] Mar, [facility] [place] [facility] [address] [id number] [place] [address] Mar, [facility] [place] [facility] [address] [id number] [place] [address] Mar, [facility] [place] [facility] [address] [id number] [place] [address] 14 Feb, 2012 [facility] [place] [facility] [address] [id number] [place] [address] Feb, [facility] [place] [facility] [address] [id number] [place] [address] Feb, [facility] [place] [facility] [address] [id number] [place] [address] Jan, [facility] [place] [facility] [address] [id number] [place] [address] Jan, [facility] [place] [facility] [address] [id number] [place] [address] Jan, [facility] [place] [facility] [address] [id number] [place] [address] Jan, [facility] [place] [facility] [address] [id number] [place] [address] Dec, [facility] [place] [facility] [address] [id number] [place] [address] Dec, [facility] [place] [facility] [address] [id number] [place] [address] Nov, [facility] [place] [facility] [address] [id number] [place] [address] Nov, [facility] [address] [id number] [place] [address] October, [facility] [place] [facility] [address] [id number] [place] [address] October, [facility] [place] [facility] [address] [facility] [id number] [place] [address] Sep, [facility] [place] [facility] [address] [id number] [place] [address] Aug, [facility] [place] [facility] [address] [id number] [place] [address] Aug, [facility] [place] [facility] [address] [id number] [place] [address] Jul, [facility] [place] [facility] [address] [id number] [place] [address] Jun, [facility] [place] [facility] [address] [id number], [place] [address] Jun, [facility] [address] [id number], [place] [address] Jun, [facility] [place] [facility] [address] [id number] [place] [address] Jun, [facility] [place] [facility] [address] [id number], [place] [address] May, [facility] [place] [facility] [address] [id number], [place] [address] May, [facility] [place] [facility] [address] [id number] [place] [address] Mar, [facility] [place] [facility] [address] [id number], [place] [address] Mar, [facility] [place] [facility] [address] [id number], [place] [address] Feb, [facility] [place] [facility] [address] [id number] [address] 12 Dec, 2010 [facility] [id number], [place] [address] 18 Aug, 2010 [facility] [id number] [address] 16 Aug, 2010 [facility] [id number], [place] [address] May, [facility] [id number], [place] [address] Jan, [facility] [id number] [place] [address] Apr, [facility] [id number], [place] [address] Apr, [facility] [id number], [place] [address] Jan, [facility] [address] [id number] [address] 10 Aug, 2008 IMMUNIZATIONS No Known Immunizations SOCIAL HISTORY Never Assessed REASON FOR VISIT [facility] PLAN OF CARE VITAL SIGNS MEDICATIONS Unknown [...]
--- OUTSIDE RECORDS SUMMARY | 2019-01-20 14:49 | XMS REPORT ---
Author Author Migration, Doctor Organization [facility] Address Unknown Phone Unavailable Care Team Providers Care Customer Counter Associate Name Role Phone Migration, Doctor Unavailable Unavailable PROBLEMS Type Condition ICD9-CM Code XLI92-BQ Code Onset Dates Condition Status SNOMED Code Problem Anxiety F41.9 Active 42060252 Problem Flat foot [pes planus] (acquired), right foot M21.41 Active 65329091 Problem Alzheimers disease with early onset G30.0 Active 4681280 Problem Diabetes E11.9 Active 612775437 Problem Moderate episode of recurrent major depressive disorder F33.1 Active 277112777 Problem Uncontrolled type 2 diabetes mellitus without complication, without long- term current use of insulin E11.65 Active 368137256 Problem Arthritis M19.90 Active 6426715 Problem Diabetic polyneuropathy associated with type 2 diabetes mellitus E11.42 Active 96394659 Problem Type 2 diabetes mellitus with unspecified diabetic retinopathy without macular edema E11.319 Active 297927840 Problem Seasonal allergies J30.2 Active 900789971 Problem Dementia in other diseases classified elsewhere with behavioral disturbance F02.81 Active 529647542 Problem Presence of right artificial hip joint Z96.641 Active 089857404 Problem Type 2 diabetes mellitus with hyperglycemia E11.65 Active 324273986543164 Problem Other chronic pain G89.29 Active 88922185 Problem Major depressive disorder, recurrent, in full remission F33.42 Active 977522171 Problem Corns L84 Active 575510280 Problem Alzheimer''s disease, unspecified G30.9 Active 6645965656539 Problem Dementia with behavioral disturbance, unspecified dementia type F03.91 Active 5254306128716 Problem Vascular dementia with behavior disturbance F01.51 Active 497116098812849 Problem Alzheimer''s disease with early onset G30.0 Active 1734301 ALLERGIES No Information ENCOUNTERS Encounter Location Date Diagnosis [facility] [address] [facility] [id number] [place] [address] Sep, Major depressive disorder, recurrent, in full remission F33.42 ; Other chronic pain G89.29 ; Presence of right artificial hip joint Z96.641 ; Pain in right hip M25.551 and Calcaneal spur of right foot M77.[address] [address] Jun, Uncontrolled type 2 diabetes mellitus without complication, without long-term current use of insulin E11.65 ; Alzheimer''s disease with early onset G30.0 and Dementia in other diseases classified elsewhere with behavioral disturbance F02.81 [place] [address] [address] May, Vascular dementia with behavior disturbance F01.[address] [address] Apr, Dementia with behavioral disturbance, unspecified dementia type F03.[address] [address] Apr, Diabetic polyneuropathy associated with type 2 diabetes mellitus E11.[address] [address] Mar, Dysfunction of both eustachian tubes H69.[address] [address] Mar, Annual physical exam Z00.[address] [address] Mar, Diabetic polyneuropathy associated with type 2 diabetes mellitus E11.42 ; Pain of left foot M79.672 ; Pain in right foot M79.671 ; Alzheimer''s disease, unspecified G30.9 and Dementia in other diseases classified elsewhere with behavioral disturbance F02.81 [facility] [address] [address] Nov, Diabetes E11.9 and Seasonal allergies J30.[address] [address] October, Type 2 diabetes mellitus with hyperglycemia E11.65 and Type 2 diabetes mellitus with unspecified diabetic retinopathy without macular edema E11.319 [place] [address] [place] [id number] [place] [address] October, Diabetes E11.9 ; Alzheimers disease with early onset G30.0 ; Arthritis M19.90 ; Diabetic polyneuropathy associated with type 2 diabetes mellitus E11.42 and Major depressive disorder, recurrent, in full remission F33.42 [place] [address] [place] [id number] [place] [address] Sep, [place] [address] [place] [id number] [place] [address] Sep, Dysfunction of both eustachian tubes H69.83 [place] [id number] [place] [address] Aug, Alzheimer''s disease with early onset G30.0 ; Dementia in other diseases classified elsewhere with behavioral disturbance F02.81 ; 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 and Type 2 diabetes mellitus with hyperglycemia E11.65 [place] [address] [place] [id number] [place] [address] Jul, [place] [id number] [place] [address] Jul, Alzheimer''s disease with early onset G30.0 ; Dementia in other diseases classified elsewhere with behavioral disturbance F02.81 and Uncontrolled type 2 diabetes mellitus without complication, without long-term current use of insulin E11.65 [place] [address] [place] [id number] [place] [address] May, Diabetes type 2, controlled E11.9 ; Bilateral otitis media with effusion H65.93 and Dizziness R42 [facility] [address] [place] [id number] [place] [address] Apr, Dysuria R30.0 and Acute cystitis with hematuria N30.01 [place] [id number] [place] [address] Apr, Moderate episode of recurrent major depressive disorder F33.1 [facility] [place] [address] [address] Mar, Acute cystitis without hematuria N30.00 [place] [address] [address] Feb, Uncontrolled type 2 diabetes mellitus without complication, without long-term current use of insulin E11.65 ; Other Alzheimer''s disease G30.8 and Dementia in other diseases classified elsewhere without behavioral disturbance F02.80 [place] [address] [address] Jan, Diabetes type 2, controlled E11.9 and Alzheimers disease with early onset G30.0 [facility] [place] [address] [address] Dec, Allergic contact dermatitis due to plants, except food L23.7 [facility] [address] [address] Dec, Dysuria R30.0 and Candidiasis of female genitalia B37.[address] [address] Dec, Diabetes E11.9 and Alzheimers disease with early onset G30.0 [facility] [address] [address] Nov, Acute exacerbation of chronic obstructive pulmonary disease (COPD) J44.1 and Vaginal candidiasis B37.3 [place] [address] [address] 15 Nov, 2016 Controlled type 2 diabetes mellitus without complication, without long-term current use of insulin E11.9 and Other Alzheimers disease G30.8 [place] [address] [place] [id number] [place] [address] October, OME (otitis media with effusion), bilateral H65.93 ; Dizziness R42 and Diabetes E11.9 [facility] [place] [id number] [place] [address] Sep, Vertigo R42 ; Heart murmur R01.1 and Dysfunction of inner ear, bilateral H83.93 [place] [id number] [place] [address] Aug, Acute suppurative otitis media of both ears without spontaneous rupture of tympanic membranes, recurrence not specified H66.003 [facility] IN [address] [address] Aug, Vaginal irritation N89.8 and Acute exacerbation of chronic obstructive pulmonary disease (COPD) J44.[address] [address] Jul, Dementia in other diseases classified elsewhere without behavioral disturbance F02.[address] [address] Jul, [address] [address] Jun, Diabetes type 2, controlled E11.9 ; Alzheimers disease with early onset G30.0 and Dementia in other diseases classified elsewhere without behavioral disturbance F02.80 [place] [id number] [place] [address] May, Diabetes type 2, controlled E11.9 [facility] IN [place] [id number] [place] [address] May, Vaginal candidiasis B37.3 and Dysuria R30.0 [facility] IN [address] [address] 05 May, 2016 Cutaneous abscess of head [any part, except face] L02.811 ; Cellulitis of head [any part, except face] L03.811 ; COPD exacerbation J44.1 and Wheezing R06.[address] [address] Apr, [facility] [address] [place] [address] Apr, Diabetes E11.9 ; Acute upper respiratory infection, unspecified J06.9 and Vagina, candidiasis B37.3 [facility] IN [facility] [address] [place] [id number] [place] [address] Mar, Acute exacerbation of chronic obstructive pulmonary disease (COPD) J44.1 [place] [address] [place] [id number] [place] [address] Mar, Diabetes type 2, controlled E11.9 [facility] IN [facility] [address] [place] [id number] [place] [address] Feb, Acute bronchitis, unspecified organism J20.9 [place] [address] [place] [id number] [place] [address] Feb, Controlled type 2 diabetes mellitus without complication, without long-term current use of insulin E11.9 [place] [address] [place] [id number] [place] [address] Jan, Controlled type 2 diabetes mellitus without complication, without long-term current use of insulin E11.9 and Anxiety F41.9 [place] [address] [place] [id number] [place] [address] Dec, [place] [address] [place] [id number] [place] [address] Nov, Diabetes type 2, controlled E11.9 [place] [address] [place] [address] Nov, Acute pain of left shoulder M25.512 [facility] [place] [address] [place] [id number] [place] [address] October, Cellulitis of face L03.211 [place] [address] [place] [id number] [place] [address] October, Diabetes type 2, controlled E11.9 [place] [address] [place] [id number] [place] [address] October, Diabetes type 2, controlled E11.9 [place] [address] [address] Sep, Generalized anxiety disorder F41.1 ; Depression F32.9 and FH: memory loss Z82.0 [place] [address] [address] Sep, FH: memory loss Z82.0 ; Major depression, recurrent F33.9 and Anxiety disorder, unspecified F41.9 [place] [address] [address] Aug, PTSD (post-traumatic stress disorder) F43.10 ; Generalized anxiety disorder F41.1 and FH: memory loss Z82.0 [place] [address] [address] Aug, FH: memory loss Z82.0 ; Depression F32.9 and PTSD (post-traumatic stress disorder) F43.10 [place] [address] [place] [id number] [place] [address] Jul, Major depression, recurrent F33.9 ; Generalized anxiety disorder F41.1 and Alzheimer disease G30.9 [place] [address] [address] Jul, Diabetes E11.9 and Mood disorder F39 [place] [address] [address] Jul, Dental examination Z01.[address] [address] Apr, Exertional dyspnea R06.09 and Chronic obstructive pulmonary disease, unspecified COPD type J44.9 [place] [address] [address] 15 Mar, 2015 [place] [address] [place] [address] Mar, Diabetes E11.9 [facility] [address] [place] [id number] [place] [address] Mar, Diabetes E11.9 ; COPD (chronic obstructive pulmonary disease) J44.9 and Hip pain, right M25.551 [facility] [address] [place] [id number] [place] [address] Dec, [facility] [address] [place] [id number] [place] [address] Nov, COPD exacerbation 491.21 and Wheezing 786.07 [facility] [address] [place] [id number] [place] [address] October, Acute contact dermatitis 692.9 and Anhedonia 780.99 [facility] [address] [place] [id number] [place] [address] October, [facility] [address] [place] [id number] [place] [address] Sep, [facility] [address] [address] Sep, [facility] [address] [place] [id number] [address] Aug, [facility] [address] [address] Aug, [facility] [address] [place] [address] Aug, [facility] [address] [address] Aug, [facility] [address] [address] Jul, [facility] [address] [address] Jul, [facility] [address] [place] [id number] [place] [address] Jul, 2014 [facility] [place] [facility] [address] [id number] [place] [address] Jul, 2014 [facility] [place] [facility] [address] [id number] [place] [address] Jul, 2014 [facility] [place] [facility] [address] [id number] [place] [address] Jul, 2014 [facility] [place] [facility] [address] [id number] [place] [address] May, [facility] [place] [facility] [address] [id number] [place] [address] May, [facility] [place] [facility] [address] [id number] [place] [address] May, [facility] [place] [facility] [address] [id number] [place] [address] May, [facility] [place] [facility] [address] [id number] [place] [address] May, [facility] [place] [facility] [address] [facility] [id number] [place] [address] May, [facility] [place] [facility] [address] [facility] [id number] [place] [address] Apr, [facility] [place] [facility] [address] [id number] [place] [address] Apr, [facility] [place] [facility] [address] [id number] [place] [address] Apr, [facility] [place] [facility] [address] [id number] [place] [address] Apr, [facility] [place] [facility] [address] [id number] [place] [address] Mar, [facility] [place] [facility] [address] [id number] [place] [address] Mar, [facility] [place] [facility] [address] [id number] [place] [address] Feb, [facility] [place] [facility] [address] [id number] [place] [address] Feb, [facility] [place] [facility] [address] [id number] [place] [address] Jan, [facility] [place] [facility] [address] [id number] [place] [address] Jan, [facility] [place] [facility] [address] [id number] [place] [address] Dec, [facility] [place] [facility] [address] [id number] [place] [address] Dec, [facility] [place] [facility] [address] [id number] [place] [address] October, [facility] [place] [facility] [address] [id number] [place] [address] October, [facility] [place] [facility] [address] [id number] [place] [address] October, [facility] [place] [facility] [address] [id number] [place] [address] October, [facility] [place] [facility] [address] [id number] [place] [address] October, [facility] [place] [facility] [address] [id number] [place] [address] October, [facility] [place] [facility] [address] [id number] [place] [address] Sep, [facility] [place] [facility] [address] [id number] [place] [address] Sep, [facility] [place] [facility] [address] [id number] [place] [address] Sep, [facility] [place] [facility] [address] [id number] [place] [address] 18 Sep, 2013 [facility] [place] [facility] [address] [id number] [place] [address] 10 Sep, 2013 [facility] [place] [facility] [address] [id number] [place] [address] 10 Sep, 2013 [facility] [place] [facility] [address] [id number] [place] [address] 08 Sep, 2013 [facility] [place] [facility] [address] [id number] [place] [address] 08 Sep, 2013 [facility] [place] [facility] [address] [id number] [place] [address] 26 Aug, 2013 [facility] [place] [facility] [address] [id number] [place] [address] 14 Aug, 2013 [facility] [place] [facility] [address] [id number] [place] [address] 14 Aug, 2013 [facility] [place] [facility] [address] [id number] [place] [address] Aug, [facility] [place] [facility] [address] [id number] [place] [address] Aug, [facility] [place] [facility] [address] [facility] [id number] [place] [address] Aug, [facility] [place] [facility] [address] [id number] [place] [address] 24 Jul, 2013 [facility] [place] [facility] [address] [id number] [place] [address] Jul, [facility] [place] [facility] [address] [id number] [place] [address] Jul, [facility] [place] [facility] [address] [id number] [place] [address] Jul, [facility] [place] [facility] [address] [id number] [place] [address] May, [facility] [address] [id number] [place] [address] May, [facility] [place] [facility] [address] [id number] [place] [address] May, [facility] [place] [facility] [address] [id number] [place] [address] May, [facility] [place] [facility] [address] [id number] [place] [address] Apr, [facility] [place] [facility] [address] [id number] [place] [address] Apr, [facility] [place] [facility] [address] [id number] [place] [address] Apr, [facility] [place] [facility] [address] [id number] [place] [address] Apr, [facility] [place] [facility] [address] [id number] [place] [address] Apr, [facility] [place] [facility] [address] [id number] [place] [address] Apr, [facility] [place] [facility] [address] [id number] [place] [address] Apr, [facility] [place] [facility] [address] [id number] [place] [address] Apr, [facility] [place] [facility] [address] [id number] [place] [address] Mar, [facility] [place] [facility] [address] [id number] [place] [address] Dec, [facility] [place] [facility] [address] [id number] [place] [address] Dec, [facility] [place] [facility] [address] [facility] [id number] [place] [address] Nov, [facility] [place] [facility] [address] [id number] [place] [address] Nov, [facility] [address] [id number] [place] [address] Nov, [facility] [place] [facility] [address] [id number] [place] [address] Sep, [facility] [place] [facility] [address] [facility] [id number] [place] [address] Aug, [facility] [place] [facility] [address] [id number] [place] [address] Aug, [facility] [address] [id number] [place] [address] 08 Aug, 2012 [facility] [place] [facility] [address] [facility] [id number] [place] [address] Aug, [facility] [address] [place] [id number] [place] [address] Jul, [facility] [place] [facility] [address] [facility] [id number] [place] [address] Jul, [facility] [address] [facility] [id number] [place] [address] May, [facility] [place] [facility] [address] [facility] [id number] [place] [address] May, [facility] [address] [facility] [id number] [place] [address] May, [facility] [place] [facility] [address] [facility] [id number] [place] [address] Apr, [facility] [place] [facility] [address] [id number] [place] [address] Apr, [facility] [place] [facility] [address] [facility] [id number] [place] [address] Apr, [facility] [place] [facility] [address] [place] [id number] [place] [address] Apr, [facility] [place] [facility] [address] [id number] [place] [address] Apr, [facility] [place] [facility] [address] [id number] [place] [address] Apr, [facility] [place] [facility] [address] [id number] [place] [address] Mar, [facility] [place] [facility] [address] [id number] [place] [address] Mar, [facility] [place] [facility] [address] [id number] [place] [address] Mar, [facility] [place] [facility] [address] [id number] [place] [address] 14 Feb, 2012 [facility] [place] [facility] [address] [id number] [place] [address] Feb, [facility] [place] [facility] [address] [id number] [place] [address] Feb, [facility] [place] [facility] [address] [id number] [place] [address] Jan, [facility] [place] [facility] [address] [id number] [place] [address] Jan, [facility] [place] [facility] [address] [id number] [place] [address] Jan, [facility] [place] [facility] [address] [id number] [place] [address] Jan, [facility] [place] [facility] [address] [id number] [place] [address] Dec, [facility] [place] [facility] [address] [id number] [place] [address] Dec, [facility] [place] [facility] [address] [id number] [place] [address] Nov, [facility] [place] [facility] [address] [id number] [place] [address] Nov, [facility] [address] [id number] [place] [address] October, [facility] [place] [facility] [address] [id number] [place] [address] October, [facility] [place] [facility] [address] [facility] [id number] [place] [address] Sep, [facility] [place] [facility] [address] [id number] [place] [address] Aug, [facility] [place] [facility] [address] [id number] [place] [address] Aug, [facility] [place] [facility] [address] [id number] [place] [address] Jul, [facility] [place] [facility] [address] [id number] [place] [address] Jun, [facility] [place] [facility] [address] [id number] [place] [address] Jun, [facility] [address] [id number] [place] [address] Jun, [facility] [place] [facility] [address] [id number] [place] [address] Jun, [facility] [place] [facility] [address] [id number] [place] [address] May, [facility] [place] [facility] [address] [id number] [place] [address] May, [facility] [place] [facility] [address] [id number] [place] [address] Mar, [facility] [place] [facility] [address] [id number] [place] [address] Mar, [facility] [place] [facility] [address] [id number] [place] [address] Feb, [facility] [place] [facility] [address] [id number] [address] 12 Dec, 2010 [facility] [id number] [place] [address] 18 Aug, 2010 [facility] [id number] [place] [address] 16 Aug, 2010 [facility] [id number] [place] [address] May, [facility] [id number] [place] [address] Jan, [facility] [id number] [place] [address] Apr, [facility] [id number] [place] [address] Apr, [facility] [id number] [place] [address] Jan, [facility] [address] [id number] [address] 10 Aug, 2008 IMMUNIZATIONS No Known Immunizations SOCIAL HISTORY Never Assessed REASON FOR VISIT [facility] PLAN OF CARE VITAL SIGNS MEDICATIONS [...]
--- OUTSIDE RECORDS SUMMARY | 2019-01-20 14:50 | XMS REPORT ---
Author Author Migration, Doctor Organization [facility] Address Unknown Phone Unavailable Care Team Providers Care Sales Operations Analyst Name Role Phone Migration, Doctor Unavailable Unavailable PROBLEMS Type Condition ICD9-CM Code SCA43-VU Code Onset Dates Condition Status SNOMED Code Problem Anxiety F41.9 Active 72629367 Problem Flat foot [pes planus] (acquired), right foot M21.41 Active 78501561 Problem Alzheimers disease with early onset G30.0 Active 4865575 Problem Diabetes E11.9 Active 080152769 Problem Moderate episode of recurrent major depressive disorder F33.1 Active 879655395 Problem Uncontrolled type 2 diabetes mellitus without complication, without long- term current use of insulin E11.65 Active 434335663 Problem Arthritis M19.90 Active 9937581 Problem Diabetic polyneuropathy associated with type 2 diabetes mellitus E11.42 Active 66156857 Problem Type 2 diabetes mellitus with unspecified diabetic retinopathy without macular edema E11.319 Active 060588589 Problem Seasonal allergies J30.2 Active 179893034 Problem Dementia in other diseases classified elsewhere with behavioral disturbance F02.81 Active 021515541 Problem Presence of right artificial hip joint Z96.641 Active 877945627 Problem Type 2 diabetes mellitus with hyperglycemia E11.65 Active [id number] Problem Other chronic pain G89.29 Active 81465360 Problem Major depressive disorder, recurrent, in full remission F33.42 Active 849886136 Problem Corns L84 Active 026631331 Problem Alzheimer''s disease, unspecified G30.9 Active 2709420966914 Problem Dementia with behavioral disturbance, unspecified dementia type F03.91 Active 1380988538949 Problem Vascular dementia with behavior disturbance F01.51 Active [id number] Problem Alzheimer''s disease with early onset G30.0 Active 1610262 ALLERGIES No Information ENCOUNTERS Encounter Location Date Diagnosis [facility] [address] [facility] [id number] [place] [address] Sep, Major depressive disorder, recurrent, in full remission F33.42 ; Other chronic pain G89.29 ; Presence of right artificial hip joint Z96.641 ; Pain in right hip M25.551 and Calcaneal spur of right foot M77.[address] [address] Jun, Uncontrolled type 2 diabetes mellitus without complication, without long-term current use of insulin E11.65 ; Alzheimer''s disease with early onset G30.0 and Dementia in other diseases classified elsewhere with behavioral disturbance F02.81 [place] [address] [address] May, Vascular dementia with behavior disturbance F01.[address] [address] Apr, Dementia with behavioral disturbance, unspecified dementia type F03.[address] [address] Apr, Diabetic polyneuropathy associated with type 2 diabetes mellitus E11.[address] [address] Mar, Dysfunction of both eustachian tubes H69.[address] [address] Mar, Annual physical exam Z00.[address] [address] Mar, Diabetic polyneuropathy associated with type 2 diabetes mellitus E11.42 ; Pain of left foot M79.672 ; Pain in right foot M79.671 ; Alzheimer''s disease, unspecified G30.9 and Dementia in other diseases classified elsewhere with behavioral disturbance F02.81 [facility] [address] [address] Nov, Diabetes E11.9 and Seasonal allergies J30.[address] [address] October, Type 2 diabetes mellitus with hyperglycemia E11.65 and Type 2 diabetes mellitus with unspecified diabetic retinopathy without macular edema E11.319 [place] [address] [place] [id number] [place] [address] October, Diabetes E11.9 ; Alzheimers disease with early onset G30.0 ; Arthritis M19.90 ; Diabetic polyneuropathy associated with type 2 diabetes mellitus E11.42 and Major depressive disorder, recurrent, in full remission F33.42 [place] [address] [place] [id number] [place] [address] Sep, [place] [address] [place] [id number] [place] [address] Sep, Dysfunction of both eustachian tubes H69.83 [place] [id number] [place] [address] Aug, Alzheimer''s disease with early onset G30.0 ; Dementia in other diseases classified elsewhere with behavioral disturbance F02.81 ; 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 and Type 2 diabetes mellitus with hyperglycemia E11.65 [place] [address] [place] [id number] [place] [address] Jul, [place] [id number] [place] [address] Jul, Alzheimer''s disease with early onset G30.0 ; Dementia in other diseases classified elsewhere with behavioral disturbance F02.81 and Uncontrolled type 2 diabetes mellitus without complication, without long-term current use of insulin E11.65 [place] [address] [place] [id number] [place] [address] May, Diabetes type 2, controlled E11.9 ; Bilateral otitis media with effusion H65.93 and Dizziness R42 [facility] WALK IN [facility] [address] [place] [id number] [place] [address] Apr, Dysuria R30.0 and Acute cystitis with hematuria N30.01 [place] [id number] [place] [address] Apr, Moderate episode of recurrent major depressive disorder F33.1 [facility] WALK IN [place] [address] [address] Mar, Acute cystitis without hematuria N30.00 [place] [address] [address] Feb, Uncontrolled type 2 diabetes mellitus without complication, without long-term current use of insulin E11.65 ; Other Alzheimer''s disease G30.8 and Dementia in other diseases classified elsewhere without behavioral disturbance F02.80 [place] [address] [address] Jan, Diabetes type 2, controlled E11.9 and Alzheimers disease with early onset G30.0 [facility] WALK IN [place] [address] [address] Dec, Allergic contact dermatitis due to plants, except food L23.7 [facility] WALK IN [address] [address] Dec, Dysuria R30.0 and Candidiasis of female genitalia B37.[address] [address] Dec, Diabetes E11.9 and Alzheimers disease with early onset G30.0 [facility] WALK IN [address] [address] Nov, Acute exacerbation of chronic obstructive pulmonary disease (COPD) J44.1 and Vaginal candidiasis B37.3 [place] [address] [address] 15 Nov, 2016 Controlled type 2 diabetes mellitus without complication, without long-term current use of insulin E11.9 and Other Alzheimers disease G30.8 [place] [address] [place] [id number] [place] [address] October, OME (otitis media with effusion), bilateral H65.93 ; Dizziness R42 and Diabetes E11.9 [facility] WALK IN [place] [id number] [place] [address] Sep, Vertigo R42 ; Heart murmur R01.1 and Dysfunction of inner ear, bilateral H83.93 [place] [id number] [place] [address] Aug, Acute suppurative otitis media of both ears without spontaneous rupture of tympanic membranes, recurrence not specified H66.003 [facility] WALK IN [address] [address] Aug, Vaginal irritation N89.8 and Acute exacerbation of chronic obstructive pulmonary disease (COPD) J44.[address] [address] Jul, Dementia in other diseases classified elsewhere without behavioral disturbance F02.[address] [address] Jul, [address] [address] Jun, Diabetes type 2, controlled E11.9 ; Alzheimers disease with early onset G30.0 and Dementia in other diseases classified elsewhere without behavioral disturbance F02.80 [place] [id number] [place] [address] May, Diabetes type 2, controlled E11.9 [facility] WALK IN [place] [id number] [place] [address] May, Vaginal candidiasis B37.3 and Dysuria R30.0 [facility] WALK IN [address] [address] 05 May, 2016 Cutaneous abscess of head [any part, except face] L02.811 ; Cellulitis of head [any part, except face] L03.811 ; COPD exacerbation J44.1 and Wheezing R06.[address] [address] Apr, [facility] [address] [place] [address] Apr, Diabetes E11.9 ; Acute upper respiratory infection, unspecified J06.9 and Vagina, candidiasis B37.3 [facility] WALK IN [facility] [address] [place] [id number] [place] [address] Mar, Acute exacerbation of chronic obstructive pulmonary disease (COPD) J44.1 [place] [address] [place] [id number] [place] [address] Mar, Diabetes type 2, controlled E11.9 [facility] WALK IN [facility] [address] [place] [id number] [place] [address] Feb, Acute bronchitis, unspecified organism J20.9 [place] [address] [place] [id number] [place] [address] Feb, Controlled type 2 diabetes mellitus without complication, without long-term current use of insulin E11.9 [place] [address] [place] [id number] [place] [address] Jan, Controlled type 2 diabetes mellitus without complication, without long-term current use of insulin E11.9 and Anxiety F41.9 [place] [address] [place] [id number] [place] [address] Dec, [place] [address] [place] [id number] [place] [address] Nov, Diabetes type 2, controlled E11.9 [place] [address] [place] [address] Nov, Acute pain of left shoulder M25.512 [facility] WALK IN [place] [address] [place] [id number] [place] [address] October, Cellulitis of face L03.211 [place] [address] [place] [id number] [place] [address] October, Diabetes type 2, controlled E11.9 [place] [address] [place] [id number] [place] [address] October, Diabetes type 2, controlled E11.9 [place] [address] [address] Sep, Generalized anxiety disorder F41.1 ; Depression F32.9 and FH: memory loss Z82.0 [place] [address] [address] Sep, FH: memory loss Z82.0 ; Major depression, recurrent F33.9 and Anxiety disorder, unspecified F41.9 [place] [address] [address] Aug, PTSD (post-traumatic stress disorder) F43.10 ; Generalized anxiety disorder F41.1 and FH: memory loss Z82.0 [place] [address] [address] Aug, FH: memory loss Z82.0 ; Depression F32.9 and PTSD (post-traumatic stress disorder) F43.10 [place] [address] [place] [id number] [place] [address] Jul, Major depression, recurrent F33.9 ; Generalized anxiety disorder F41.1 and Alzheimer disease G30.9 [place] [address] [address] Jul, Diabetes E11.9 and Mood disorder F39 [place] [address] [address] Jul, Dental examination Z01.[address] [address] Apr, Exertional dyspnea R06.09 and Chronic obstructive pulmonary disease, unspecified COPD type J44.9 [place] [address] [address] 15 Mar, 2015 [place] [address] [place] [address] Mar, Diabetes E11.9 [facility] [address] [place] [id number] [place] [address] Mar, Diabetes E11.9 ; COPD (chronic obstructive pulmonary disease) J44.9 and Hip pain, right M25.551 [facility] [address] [place] [id number] [place] [address] Dec, [facility] [address] [place] [id number] [place] [address] Nov, COPD exacerbation 491.21 and Wheezing 786.07 [facility] [address] [place] [id number] [place] [address] October, Acute contact dermatitis 692.9 and Anhedonia 780.99 [facility] [address] [place] [id number] [place] [address] October, [facility] [address] [place] [id number] [place] [address] Sep, [facility] [address] [address] Sep, [facility] [address] [place] [id number] [address] Aug, [facility] [address] [address] Aug, [facility] [address] [place] [address] Aug, [facility] [address] [address] Aug, [facility] [address] [address] Jul, [facility] [address] [address] Jul, [facility] [address] [place] [id number] [place] [address] Jul, 2014 [facility] [place] [facility] [address] [id number] [place] [address] Jul, 2014 [facility] [place] [facility] [address] [id number] [place] [address] Jul, 2014 [facility] [place] [facility] [address] [id number] [place] [address] Jul, 2014 [facility] [place] [facility] [address] [id number] [place] [address] May, [facility] [place] [facility] [address] [id number] [place] [address] May, [facility] [place] [facility] [address] [id number] [place] [address] May, [facility] [place] [facility] [address] [id number] [place] [address] May, [facility] [place] [facility] [address] [id number] [place] [address] May, [facility] [place] [facility] [address] [facility] [id number] [place] [address] May, [facility] [place] [facility] [address] [facility] [id number] [place] [address] Apr, [facility] [place] [facility] [address] [id number] [place] [address] Apr, [facility] [place] [facility] [address] [id number] [place] [address] Apr, [facility] [place] [facility] [address] [id number] [place] [address] Apr, [facility] [place] [facility] [address] [id number] [place] [address] Mar, [facility] [place] [facility] [address] [id number] [place] [address] Mar, [facility] [place] [facility] [address] [id number] [place] [address] Feb, [facility] [place] [facility] [address] [id number] [place] [address] Feb, [facility] [place] [facility] [address] [id number] [place] [address] Jan, [facility] [place] [facility] [address] [id number] [place] [address] Jan, [facility] [place] [facility] [address] [id number] [place] [address] Dec, [facility] [place] [facility] [address] [id number] [place] [address] Dec, [facility] [place] [facility] [address] [id number] [place] [address] October, [facility] [place] [facility] [address] [id number] [place] [address] October, [facility] [place] [facility] [address] [id number] [place] [address] October, [facility] [place] [facility] [address] [id number] [place] [address] October, [facility] [place] [facility] [address] [id number] [place] [address] October, [facility] [place] [facility] [address] [id number] [place] [address] October, [facility] [place] [facility] [address] [id number] [place] [address] Sep, [facility] [place] [facility] [address] [id number] [place] [address] Sep, [facility] [place] [facility] [address] [id number] [place] [address] Sep, [facility] [place] [facility] [address] [id number] [place] [address] 18 Sep, 2013 [facility] [place] [facility] [address] [id number] [place] [address] 10 Sep, 2013 [facility] [place] [facility] [address] [id number] [place] [address] 10 Sep, 2013 [facility] [place] [facility] [address] [id number] [place] [address] 08 Sep, 2013 [facility] [place] [facility] [address] [id number] [place] [address] 08 Sep, 2013 [facility] [place] [facility] [address] [id number] [place] [address] 26 Aug, 2013 [facility] [place] [facility] [address] [id number] [place] [address] 14 Aug, 2013 [facility] [place] [facility] [address] [id number] [place] [address] 14 Aug, 2013 [facility] [place] [facility] [address] [id number] [place] [address] Aug, [facility] [place] [facility] [address] [id number] [place] [address] Aug, [facility] [place] [facility] [address] [facility] [id number] [place] [address] Aug, [facility] [place] [facility] [address] [id number] [place] [address] 24 Jul, 2013 [facility] [place] [facility] [address] [id number] [place] [address] Jul, [facility] [place] [facility] [address] [id number] [place] [address] Jul, [facility] [place] [facility] [address] [id number] [place] [address] Jul, [facility] [place] [facility] [address] [id number] [place] [address] May, [facility] [address] [id number] [place] [address] May, [facility] [place] [facility] [address] [id number] [place] [address] May, [facility] [place] [facility] [address] [id number] [place] [address] May, [facility] [place] [facility] [address] [id number] [place] [address] Apr, [facility] [place] [facility] [address] [id number] [place] [address] Apr, [facility] [place] [facility] [address] [id number] [place] [address] Apr, [facility] [place] [facility] [address] [id number] [place] [address] Apr, [facility] [place] [facility] [address] [id number] [address] Apr, [facility] [place] [facility] [address] [id number] [place] [address] Apr, [facility] [place] [facility] [address] [id number] [place] [address] Apr, [facility] [place] [facility] [address] [id number] [place] [address] Apr, [facility] [place] [facility] [address] [id number] [place] [address] Mar, [facility] [place] [facility] [address] [id number] [place] [address] Dec, [facility] [place] [facility] [address] [id number] [place] [address] Dec, [facility] [place] [facility] [address] [facility] [id number] [place] [address] Nov, [facility] [place] [facility] [address] [id number] [place] [address] Nov, [facility] [address] [id number] [place] [address] Nov, [facility] [place] [facility] [address] [id number] [place] [address] Sep, [facility] [place] [facility] [address] [facility] [id number] [place] [address] Aug, [facility] [place] [facility] [address] [id number] [place] [address] Aug, [facility] [address] [id number] [place] [address] 08 Aug, 2012 [facility] [place] [facility] [address] [facility] [id number] [place] [address] Aug, [facility] [address] [place] [id number] [place] [address] Jul, [facility] [place] [facility] [address] [facility] [id number] [place] [address] Jul, [facility] [address] [facility] [id number] [place] [address] May, [facility] [place] [facility] [address] [facility] [id number] [place] [address] May, [facility] [address] [facility] [id number] [place] [address] May, [facility] [place] [facility] [address] [facility] [id number] [place] [address] Apr, [facility] [place] [facility] [address] [id number] [place] [address] Apr, [facility] [place] [facility] [address] [facility] [id number] [place] [address] Apr, [facility] [place] [facility] [address] [place] [id number] [place] [address] Apr, [facility] [place] [facility] [address] [id number] [place] [address] Apr, [facility] [place] [facility] [address] [id number] [place] [address] Apr, [facility] [place] [facility] [address] [id number] [place] [address] Mar, [facility] [place] [facility] [address] [id number] [place] [address] Mar, [facility] [place] [facility] [address] [id number] [place] [address] Mar, [facility] [place] [facility] [address] [id number] [place] [address] 14 Feb, 2012 [facility] [place] [facility] [address] [id number] [place] [address] Feb, [facility] [place] [facility] [address] [id number] [place] [address] Feb, [facility] [place] [facility] [address] [id number] [place] [address] Jan, [facility] [place] [facility] [address] [id number] [place] [address] Jan, [facility] [place] [facility] [address] [id number] [place] [address] Jan, [facility] [place] [facility] [address] [id number] [place] [address] Jan, [facility] [place] [facility] [address] [id number] [place] [address] Dec, [facility] [place] [facility] [address] [id number] [place] [address] Dec, [facility] [place] [facility] [address] [id number] [place] [address] Nov, [facility] [place] [facility] [address] [id number] [place] [address] Nov, [facility] [address] [id number] [place] [address] October, [facility] [place] [facility] [address] [id number] [place] [address] October, [facility] [place] [facility] [address] [facility] [id number] [place] [address] Sep, [facility] [place] [facility] [address] [id number] [place] [address] Aug, [facility] [place] [facility] [address] [id number] [place] [address] Aug, [facility] [place] [facility] [address] [id number] [place] [address] Jul, [facility] [place] [facility] [address] [id number] [place] [address] Jun, [facility] [place] [facility] [address] [id number] [address] Jun, [facility] [address] [id number] [place] [address] Jun, [facility] [place] [facility] [address] [id number] [place] [address] Jun, [facility] [place] [facility] [address] [id number] [place] [address] May, [facility] [place] [facility] [address] [id number] [address] May, [facility] [place] [facility] [address] [id number] [place] [address] Mar, [facility] [place] [facility] [address] [id number] [place] [address] Mar, [facility] [place] [facility] [address] [id number] [place] [address] Feb, [facility] [place] [facility] [address] [id number] [address] 12 Dec, 2010 [facility] [id number] [address] 18 Aug, 2010 [facility] [id number] [address] 16 Aug, 2010 [facility] [id number] [address] May, [facility] [id number] [address] Jan, [facility] [id number] [place] [address] Apr, [facility] [id number] [address] Apr, [facility] [id number] [address] Jan, [facility] [address] [id number] [address] 10 Aug, 2008 IMMUNIZATIONS No Known Immunizations SOCIAL HISTORY Never Assessed REASON FOR VISIT [facility] PLAN OF CARE VITAL SIGNS MEDICATIONS [...]
--- OUTSIDE RECORDS SUMMARY | 2019-01-20 14:50 | XMS REPORT ---
Author Author Migration, Doctor Organization [facility] Address Unknown Phone Unavailable Care Team Providers Care Batch Operator Name Role Phone Migration, Doctor Unavailable Unavailable PROBLEMS Type Condition ICD9-CM Code UVR29-ZU Code Onset Dates Condition Status SNOMED Code Problem Anxiety F41.9 Active 63551584 Problem Flat foot [pes planus] (acquired), right foot M21.41 Active 78860815 Problem Alzheimers disease with early onset G30.0 Active 2789644 Problem Diabetes E11.9 Active 019329013 Problem Moderate episode of recurrent major depressive disorder F33.1 Active 302417468 Problem Uncontrolled type 2 diabetes mellitus without complication, without long- term current use of insulin E11.65 Active 645341822 Problem Arthritis M19.90 Active 3645064 Problem Diabetic polyneuropathy associated with type 2 diabetes mellitus E11.42 Active 38431530 Problem Type 2 diabetes mellitus with unspecified diabetic retinopathy without macular edema E11.319 Active 159843373 Problem Seasonal allergies J30.2 Active 919019247 Problem Dementia in other diseases classified elsewhere with behavioral disturbance F02.81 Active 952582771 Problem Presence of right artificial hip joint Z96.641 Active 495098542 Problem Type 2 diabetes mellitus with hyperglycemia E11.65 Active 363694264394765 Problem Other chronic pain G89.29 Active 70413096 Problem Major depressive disorder, recurrent, in full remission F33.42 Active 299955248 Problem Corns L84 Active 274106494 Problem Alzheimer''s disease, unspecified G30.9 Active 4107406788053 Problem Dementia with behavioral disturbance, unspecified dementia type F03.91 Active 7802907643733 Problem Vascular dementia with behavior disturbance F01.51 Active 069402320885068 Problem Alzheimer''s disease with early onset G30.0 Active 9631214 ALLERGIES No Information ENCOUNTERS Encounter Location Date Diagnosis [facility] [address] [facility] [id number] [place] [address] Sep, Major depressive disorder, recurrent, in full remission F33.42 ; Other chronic pain G89.29 ; Presence of right artificial hip joint Z96.641 ; Pain in right hip M25.551 and Calcaneal spur of right foot M77.[address] [address] Jun, Uncontrolled type 2 diabetes mellitus without complication, without long-term current use of insulin E11.65 ; Alzheimer''s disease with early onset G30.0 and Dementia in other diseases classified elsewhere with behavioral disturbance F02.81 [place] [address] [address] May, Vascular dementia with behavior disturbance F01.[address] [address] Apr, Dementia with behavioral disturbance, unspecified dementia type F03.[address] [address] Apr, Diabetic polyneuropathy associated with type 2 diabetes mellitus E11.[address] [address] Mar, Dysfunction of both eustachian tubes H69.[address] [address] Mar, Annual physical exam Z00.[address] [address] Mar, Diabetic polyneuropathy associated with type 2 diabetes mellitus E11.42 ; Pain of left foot M79.672 ; Pain in right foot M79.671 ; Alzheimer''s disease, unspecified G30.9 and Dementia in other diseases classified elsewhere with behavioral disturbance F02.[address] [facility] [address] [address] Nov, Diabetes E11.9 and Seasonal allergies J30.[address] [address] October, Type 2 diabetes mellitus with hyperglycemia E11.65 and Type 2 diabetes mellitus with unspecified diabetic retinopathy without macular edema E11.319 [place] [address] [address] [place] [id number] [place] [address] October, Diabetes E11.9 ; Alzheimers disease with early onset G30.0 ; Arthritis M19.90 ; Diabetic polyneuropathy associated with type 2 diabetes mellitus E11.42 and Major depressive disorder, recurrent, in full remission F33.42 [place] [address] [place] [id number] [place] [address] Sep, [place] [address] [place] [id number] [place] [address] Sep, Dysfunction of both eustachian tubes H69.83 [place] [id number] [place] [address] Aug, Alzheimer''s disease with early onset G30.0 ; Dementia in other diseases classified elsewhere with behavioral disturbance F02.81 ; 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 and Type 2 diabetes mellitus with hyperglycemia E11.65 [place] [address] [place] [id number] [place] [address] Jul, [place] [id number] [place] [address] Jul, Alzheimer''s disease with early onset G30.0 ; Dementia in other diseases classified elsewhere with behavioral disturbance F02.81 and Uncontrolled type 2 diabetes mellitus without complication, without long-term current use of insulin E11.65 [place] [address] [place] [id number] [place] [address] May, Diabetes type 2, controlled E11.9 ; Bilateral otitis media with effusion H65.93 and Dizziness R42 [facility] W[facility] IN [facility] [address] [place] [id number] [place] [address] Apr, Dysuria R30.0 and Acute cystitis with hematuria N30.01 [place] [id number] [place] [address] Apr, Moderate episode of recurrent major depressive disorder F33.1 [facility] WALK IN [place] [address] [address] Mar, Acute cystitis without hematuria N30.00 [place] [address] [address] Feb, Uncontrolled type 2 diabetes mellitus without complication, without long-term current use of insulin E11.65 ; Other Alzheimer''s disease G30.8 and Dementia in other diseases classified elsewhere without behavioral disturbance F02.80 [place] [address] [address] Jan, Diabetes type 2, controlled E11.9 and Alzheimers disease with early onset G30.0 [facility] WALK IN [place] [address] [address] Dec, Allergic contact dermatitis due to plants, except food L23.7 [facility] W[facility] IN [address] [address] Dec, Dysuria R30.0 and Candidiasis of female genitalia B37.[address] [address] Dec, Diabetes E11.9 and Alzheimers disease with early onset G30.0 [facility] W[facility] IN [address] [address] Nov, Acute exacerbation of chronic obstructive pulmonary disease (COPD) J44.1 and Vaginal candidiasis B37.3 [place] [address] [address] 15 Nov, 2016 Controlled type 2 diabetes mellitus without complication, without long-term current use of insulin E11.9 and Other Alzheimers disease G30.8 [place] [address] [place] [id number] [place] [address] October, OME (otitis media with effusion), bilateral H65.93 ; Dizziness R42 and Diabetes E11.9 [facility] [place] [id number] [place] [address] Sep, Vertigo R42 ; Heart murmur R01.1 and Dysfunction of inner ear, bilateral H83.93 [place] [id number] [place] [address] Aug, Acute suppurative otitis media of both ears without spontaneous rupture of tympanic membranes, recurrence not specified H66.003 [facility] WALK IN [address] [address] Aug, Vaginal irritation N89.8 and Acute exacerbation of chronic obstructive pulmonary disease (COPD) J44.[address] [address] Jul, Dementia in other diseases classified elsewhere without behavioral disturbance F02.[address] [address] Jul, [address] [address] Jun, Diabetes type 2, controlled E11.9 ; Alzheimers disease with early onset G30.0 and Dementia in other diseases classified elsewhere without behavioral disturbance F02.80 [place] [id number] [place] [address] May, Diabetes type 2, controlled E11.9 [facility] IN [place] [id number] [place] [address] May, Vaginal candidiasis B37.3 and Dysuria R30.0 [facility] WALK IN [address] [address] 05 May, 2016 Cutaneous abscess of head [any part, except face] L02.811 ; Cellulitis of head [any part, except face] L03.811 ; COPD exacerbation J44.1 and Wheezing R06.[address] [address] Apr, [facility] [address] [place] [address] Apr, Diabetes E11.9 ; Acute upper respiratory infection, unspecified J06.9 and Vagina, candidiasis B37.3 [facility] WALK IN [facility] [address] [place] [id number] [place] [address] Mar, Acute exacerbation of chronic obstructive pulmonary disease (COPD) J44.1 [place] [address] [place] [id number] [place] [address] Mar, Diabetes type 2, controlled E11.9 [facility] W[facility] IN [facility] [address] [place] [id number] [place] [address] Feb, Acute bronchitis, unspecified organism J20.9 [place] [address] [place] [id number] [place] [address] Feb, Controlled type 2 diabetes mellitus without complication, without long-term current use of insulin E11.9 [place] [address] [place] [id number] [place] [address] Jan, Controlled type 2 diabetes mellitus without complication, without long-term current use of insulin E11.9 and Anxiety F41.9 [place] [address] [place] [id number] [place] [address] Dec, [place] [address] [place] [id number] [place] [address] Nov, Diabetes type 2, controlled E11.9 [place] [address] [place] [address] Nov, Acute pain of left shoulder M25.512 [facility] W[facility] [place] [address] [place] [id number] [place] [address] October, Cellulitis of face L03.211 [place] [address] [place] [id number] [place] [address] October, Diabetes type 2, controlled E11.9 [place] [address] [place] [id number] [place] [address] October, Diabetes type 2, controlled E11.9 [place] [address] [address] Sep, Generalized anxiety disorder F41.1 ; Depression F32.9 and FH: memory loss Z82.0 [place] [address] [address] Sep, FH: memory loss Z82.0 ; Major depression, recurrent F33.9 and Anxiety disorder, unspecified F41.9 [place] [address] [address] Aug, PTSD (post-traumatic stress disorder) F43.10 ; Generalized anxiety disorder F41.1 and FH: memory loss Z82.0 [place] [address] [address] Aug, FH: memory loss Z82.0 ; Depression F32.9 and PTSD (post-traumatic stress disorder) F43.10 [place] [address] [place] [id number] [place] [address] Jul, Major depression, recurrent F33.9 ; Generalized anxiety disorder F41.1 and Alzheimer disease G30.9 [place] [address] [address] Jul, Diabetes E11.9 and Mood disorder F39 [place] [address] [address] Jul, Dental examination Z01.[address] [address] Apr, Exertional dyspnea R06.09 and Chronic obstructive pulmonary disease, unspecified COPD type J44.9 [place] [address] [address] 15 Mar, 2015 [place] [address] [place] [address] Mar, Diabetes E11.9 [facility] [address] [place] [id number] [place] [address] Mar, Diabetes E11.9 ; COPD (chronic obstructive pulmonary disease) J44.9 and Hip pain, right M25.551 [facility] [address] [place] [id number] [place] [address] Dec, [facility] [address] [place] [id number] [place] [address] Nov, COPD exacerbation 491.21 and Wheezing 786.07 [facility] [address] [place] [id number] [place] [address] October, Acute contact dermatitis 692.9 and Anhedonia 780.99 [facility] [address] [place] [id number] [place] [address] October, [facility] [address] [place] [id number] [place] [address] Sep, [facility] [address] [address] Sep, [facility] [address] [place] [id number] [address] Aug, [facility] [address] [address] Aug, [facility] [address] [place] [address] Aug, [facility] [address] [address] Aug, [facility] [address] [address] Jul, [facility] [address] [address] Jul, [facility] [address] [place] [id number] [place] [place] [address] Jul, 2014 [facility] [place] [facility] [address] [id number] [place] [address] Jul, 2014 [facility] [place] [facility] [address] [id number] [place] [address] Jul, 2014 [facility] [place] [facility] [address] [id number] [place] [address] Jul, 2014 [facility] [place] [facility] [address] [id number] [place] [address] May, [facility] [place] [facility] [address] [id number] [place] [address] May, [facility] [place] [facility] [address] [id number] [place] [address] May, [facility] [place] [facility] [address] [id number] [place] [address] May, [facility] [place] [facility] [address] [id number] [place] [address] May, [facility] [place] [facility] [address] [facility] [id number] [place] [address] May, [facility] [place] [facility] [address] [facility] [id number] [place] [address] Apr, [facility] [place] [facility] [address] [id number] [place] [address] Apr, [facility] [place] [facility] [address] [id number] [place] [address] Apr, [facility] [place] [facility] [address] [id number] [place] [address] Apr, [facility] [place] [facility] [address] [id number] [place] [address] Mar, [facility] [place] [facility] [address] [id number] [place] [address] Mar, [facility] [place] [facility] [address] [id number] [place] [address] Feb, [facility] [place] [facility] [address] [id number] [place] [address] Feb, [facility] [place] [facility] [address] [id number] [place] [address] Jan, [facility] [place] [facility] [address] [id number] [place] [address] Jan, [facility] [place] [facility] [address] [id number] [place] [address] Dec, [facility] [place] [facility] [address] [id number] [place] [address] Dec, [facility] [place] [facility] [address] [id number] [place] [address] October, [facility] [place] [facility] [address] [id number] [place] [address] October, [facility] [place] [facility] [address] [id number] [place] [address] October, [facility] [place] [facility] [address] [id number] [place] [address] October, [facility] [place] [facility] [address] [id number] [place] [address] October, [facility] [place] [facility] [address] [id number] [place] [address] October, [facility] [place] [facility] [address] [id number] [place] [address] Sep, [facility] [place] [facility] [address] [id number] [place] [address] Sep, [facility] [place] [facility] [address] [id number] [place] [address] Sep, [facility] [place] [facility] [address] [id number] [place] [address] 18 Sep, 2013 [facility] [place] [facility] [address] [id number] [place] [address] 10 Sep, 2013 [facility] [place] [facility] [address] [id number] [place] [address] 10 Sep, 2013 [facility] [place] [facility] [address] [id number] [place] [address] 08 Sep, 2013 [facility] [place] [facility] [address] [id number] [place] [address] 08 Sep, 2013 [facility] [place] [facility] [address] [id number] [place] [address] 26 Aug, 2013 [facility] [place] [facility] [address] [id number] [place] [address] 14 Aug, 2013 [facility] [place] [facility] [address] [id number] [place] [address] 14 Aug, 2013 [facility] [place] [facility] [address] [id number] [place] [address] Aug, [facility] [place] [facility] [address] [id number] [place] [address] Aug, [facility] [place] [facility] [address] [facility] [id number] [place] [address] Aug, [facility] [place] [facility] [address] [id number] [place] [address] 24 Jul, 2013 [facility] [place] [facility] [address] [id number] [place] [address] Jul, [facility] [place] [facility] [address] [id number] [place] [address] Jul, [facility] [place] [facility] [address] [id number] [place] [address] Jul, [facility] [place] [facility] [address] [id number] [place] [address] May, [facility] [address] [id number] [place] [address] May, [facility] [place] [facility] [address] [id number] [place] [address] May, [facility] [place] [facility] [address] [id number] [place] [address] May, [facility] [place] [facility] [address] [id number] [place] [address] Apr, [facility] [place] [facility] [address] [id number] [place] [address] Apr, [facility] [place] [facility] [address] [id number] [place] [address] Apr, [facility] [place] [facility] [address] [id number] [place] [address] Apr, [facility] [place] [facility] [address] [id number], [place] [address] Apr, [facility] [place] [facility] [address] [id number] [place] [address] Apr, [facility] [place] [facility] [address] [id number], [place] [address] Apr, [facility] [place] [facility] [address] [id number], [place] [address] Apr, [facility] [place] [facility] [address] [id number], [place] [address] Mar, [facility] [place] [facility] [address] [id number], [place] [address] Dec, [facility] [place] [facility] [address] [id number], [place] [address] Dec, [facility] [place] [facility] [address] [facility] [id number], [place] [address] Nov, [facility] [place] [facility] [address] [id number], [place] [address] Nov, [facility] [address] [id number] [place] [address] Nov, [facility] [place] [facility] [address] [id number] [place] [address] Sep, [facility] [place] [facility] [address] [facility] [id number] [place] [address] Aug, [facility] [place] [facility] [address] [id number] [place] [address] Aug, [facility] [address] [id number] [place] [address] 08 Aug, 2012 [facility] [place] [facility] [address] [facility] [id number] [place] [address] Aug, [facility] [address] [place] [id number] [place] [place] [address] Jul, [facility] [place] [facility] [address] [facility] [id number] [place] [address] Jul, [facility] [address] [facility] [id number] [place] [address] May, [facility] [place] [facility] [address] [facility] [id number] [place] [address] May, [facility] [address] [facility] [id number] [place] [address] May, [facility] [place] [facility] [address] [facility] [id number] [place] [address] Apr, [facility] [place] [facility] [address] [id number] [place] [address] Apr, [facility] [place] [facility] [address] [facility] [id number] [place] [address] Apr, [facility] [place] [facility] [address] [place] [id number] [place] [address] Apr, [facility] [place] [facility] [address] [id number] [place] [address] Apr, [facility] [place] [facility] [address] [id number] [place] [address] Apr, [facility] [place] [facility] [address] [id number] [place] [address] Mar, [facility] [place] [facility] [address] [id number] [place] [address] Mar, [facility] [place] [facility] [address] [id number] [place] [address] Mar, [facility] [place] [facility] [address] [id number] [place] [address] 14 Feb, 2012 [facility] [place] [facility] [address] [id number] [place] [address] Feb, [facility] [place] [facility] [address] [id number] [place] [address] Feb, [facility] [place] [facility] [address] [id number] [place] [address] Jan, [facility] [place] [facility] [address] [id number] [place] [address] Jan, [facility] [place] [facility] [address] [id number] [place] [address] Jan, [facility] [place] [facility] [address] [id number] [place] [address] Jan, [facility] [place] [facility] [address] [id number] [place] [address] Dec, [facility] [place] [facility] [address] [id number] [place] [address] Dec, [facility] [place] [facility] [address] [id number] [place] [address] Nov, [facility] [place] [facility] [address] [id number] [place] [address] Nov, [facility] [address] [id number] [place] [address] October, [facility] [place] [facility] [address] [id number] [place] [address] October, [facility] [place] [facility] [address] [facility] [id number] [place] [address] Sep, [facility] [place] [facility] [address] [id number] [place] [address] Aug, [facility] [place] [facility] [address] [id number] [place] [address] Aug, [facility] [place] [facility] [address] [id number] [place] [address] Jul, [facility] [place] [facility] [address] [id number] [place] [address] Jun, [facility] [place] [facility] [address] [id number], [place] [address] Jun, [facility] [address] [id number], [place] [address] Jun, [facility] [place] [facility] [address] [id number] [place] [address] Jun, [facility] [place] [facility] [address] [id number], [place] [address] May, [facility] [place] [facility] [address] [id number], [place] [address] May, [facility] [place] [facility] [address] [id number] [place] [address] Mar, [facility] [place] [facility] [address] [id number], [place] [address] Mar, [facility] [place] [facility] [address] [id number], [place] [address] Feb, [facility] [place] [facility] [address] [id number] [address] 12 Dec, 2010 [facility] [id number] [address] 18 Aug, 2010 [facility] [id number] [address] 16 Aug, 2010 [facility] [id number] [address] May, [facility] [id number] [address] Jan, [facility] [id number] [place] [address] Apr, [facility] [id number] [address] Apr, [facility] [id number] [place] [address] Jan, [facility] [address] [id number] [address] 10 Aug, 2008 IMMUNIZATIONS No Known Immunizations SOCIAL HISTORY Never Assessed REASON FOR VISIT [facility] PLAN OF CARE VITAL SIGNS MEDICATIONS Unknown [...]
--- OUTSIDE RECORDS SUMMARY | 2019-01-20 14:51 | XMS REPORT ---
Author Author Migration, Doctor Organization [facility] Address Unknown Phone Unavailable Care Team Providers Care Corporate Legal Manager Name Role Phone Migration, Doctor Unavailable Unavailable PROBLEMS Type Condition ICD9-CM Code DNF22-VP Code Onset Dates Condition Status SNOMED Code Problem Anxiety F41.9 Active 50954552 Problem Flat foot [pes planus] (acquired), right foot M21.41 Active 90275451 Problem Alzheimers disease with early onset G30.0 Active 5054031 Problem Diabetes E11.9 Active 980135366 Problem Moderate episode of recurrent major depressive disorder F33.1 Active 169351939 Problem Uncontrolled type 2 diabetes mellitus without complication, without long- term current use of insulin E11.65 Active 301514137 Problem Arthritis M19.90 Active 1112219 Problem Diabetic polyneuropathy associated with type 2 diabetes mellitus E11.42 Active 09642854 Problem Type 2 diabetes mellitus with unspecified diabetic retinopathy without macular edema E11.319 Active 051395512 Problem Seasonal allergies J30.2 Active 421108670 Problem Dementia in other diseases classified elsewhere with behavioral disturbance F02.81 Active 002426090 Problem Presence of right artificial hip joint Z96.641 Active 137827768 Problem Type 2 diabetes mellitus with hyperglycemia E11.65 Active 732488954199223 Problem Other chronic pain G89.29 Active 49485615 Problem Major depressive disorder, recurrent, in full remission F33.42 Active 292369623 Problem Corns L84 Active 711999726 Problem Alzheimer''s disease, unspecified G30.9 Active 3238766749387 Problem Dementia with behavioral disturbance, unspecified dementia type F03.91 Active 8822437612145 Problem Vascular dementia with behavior disturbance F01.51 Active 389475403304263 Problem Alzheimer''s disease with early onset G30.0 Active 1255057 ALLERGIES No Information ENCOUNTERS Encounter Location Date Diagnosis [facility] [address] [facility] [id number] [address] Sep, Major depressive disorder, recurrent, in full remission F33.42 ; Other chronic pain G89.29 ; Presence of right artificial hip joint Z96.641 ; Pain in right hip M25.551 and Calcaneal spur of right foot M77.[address] [address] Jun, Uncontrolled type 2 diabetes mellitus without complication, without long-term current use of insulin E11.65 ; Alzheimer''s disease with early onset G30.0 and Dementia in other diseases classified elsewhere with behavioral disturbance F02.81 [place] [address] [address] May, Vascular dementia with behavior disturbance F01.[address] [address] Apr, Dementia with behavioral disturbance, unspecified dementia type F03.[address] [address] Apr, Diabetic polyneuropathy associated with type 2 diabetes mellitus E11.[address] [address] Mar, Dysfunction of both eustachian tubes H69.[address] [address] Mar, Annual physical exam Z00.[address] [address] Mar, Diabetic polyneuropathy associated with type 2 diabetes mellitus E11.42 ; Pain of left foot M79.672 ; Pain in right foot M79.671 ; Alzheimer''s disease, unspecified G30.9 and Dementia in other diseases classified elsewhere with behavioral disturbance F02.81 [facility] [address] [address] Nov, Diabetes E11.9 and Seasonal allergies J30.[address] [address] October, Type 2 diabetes mellitus with hyperglycemia E11.65 and Type 2 diabetes mellitus with unspecified diabetic retinopathy without macular edema E11.319 [place] [address] [address] [place] [id number] [place] [address] October, Diabetes E11.9 ; Alzheimers disease with early onset G30.0 ; Arthritis M19.90 ; Diabetic polyneuropathy associated with type 2 diabetes mellitus E11.42 and Major depressive disorder, recurrent, in full remission F33.42 [place] [address] [place] [id number] [place] [address] Sep, [place] [address] [place] [id number] [place] [address] Sep, Dysfunction of both eustachian tubes H69.83 [place] [id number] [place] [address] Aug, Alzheimer''s disease with early onset G30.0 ; Dementia in other diseases classified elsewhere with behavioral disturbance F02.81 ; 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 and Type 2 diabetes mellitus with hyperglycemia E11.65 [place] [address] [place] [id number] [place] [address] Jul, [place] [id number] [place] [address] Jul, Alzheimer''s disease with early onset G30.0 ; Dementia in other diseases classified elsewhere with behavioral disturbance F02.81 and Uncontrolled type 2 diabetes mellitus without complication, without long-term current use of insulin E11.65 [place] [address] [place] [id number] [place] [address] May, Diabetes type 2, controlled E11.9 ; Bilateral otitis media with effusion H65.93 and Dizziness R42 [facility] [address] [place] [id number] [place] [address] Apr, Dysuria R30.0 and Acute cystitis with hematuria N30.01 [place] [id number] [place] [address] Apr, Moderate episode of recurrent major depressive disorder F33.1 [facility] [place] [address] [address] Mar, Acute cystitis without hematuria N30.00 [place] [address] [address] Feb, Uncontrolled type 2 diabetes mellitus without complication, without long-term current use of insulin E11.65 ; Other Alzheimer''s disease G30.8 and Dementia in other diseases classified elsewhere without behavioral disturbance F02.80 [place] [address] [address] Jan, Diabetes type 2, controlled E11.9 and Alzheimers disease with early onset G30.0 [facility] [place] [address] [address] Dec, Allergic contact dermatitis due to plants, except food L23.7 [facility] [address] [address] Dec, Dysuria R30.0 and Candidiasis of female genitalia B37.[address] [address] Dec, Diabetes E11.9 and Alzheimers disease with early onset G30.0 [facility] [address] [address] Nov, Acute exacerbation of chronic obstructive pulmonary disease (COPD) J44.1 and Vaginal candidiasis B37.3 [place] [address] [address] 15 Nov, 2016 Controlled type 2 diabetes mellitus without complication, without long-term current use of insulin E11.9 and Other Alzheimers disease G30.8 [place] [address] [place] [id number] [place] [address] October, OME (otitis media with effusion), bilateral H65.93 ; Dizziness R42 and Diabetes E11.9 [facility] [place] [id number] [place] [address] Sep, Vertigo R42 ; Heart murmur R01.1 and Dysfunction of inner ear, bilateral H83.93 [place] [id number] [place] [address] Aug, Acute suppurative otitis media of both ears without spontaneous rupture of tympanic membranes, recurrence not specified H66.003 [facility] [address] [address] Aug, Vaginal irritation N89.8 and Acute exacerbation of chronic obstructive pulmonary disease (COPD) J44.[address] [address] Jul, Dementia in other diseases classified elsewhere without behavioral disturbance F02.[address] [address] Jul, [address] [address] Jun, Diabetes type 2, controlled E11.9 ; Alzheimers disease with early onset G30.0 and Dementia in other diseases classified elsewhere without behavioral disturbance F02.80 [place] [id number] [place] [address] May, Diabetes type 2, controlled E11.9 [facility] [place] [id number] [place] [address] May, Vaginal candidiasis B37.3 and Dysuria R30.0 [facility] [address] [address] 05 May, 2016 Cutaneous abscess of head [any part, except face] L02.811 ; Cellulitis of head [any part, except face] L03.811 ; COPD exacerbation J44.1 and Wheezing R06.[address] [address] Apr, [facility] [id number] [place] [address] Apr, Diabetes E11.9 ; Acute upper respiratory infection, unspecified J06.9 and Vagina, candidiasis B37.3 [facility] [address] [place] [id number] [place] [address] Mar, Acute exacerbation of chronic obstructive pulmonary disease (COPD) J44.1 [place] [address] [place] [id number] [place] [address] Mar, Diabetes type 2, controlled E11.9 [facility] [address] [place] [id number] [place] [address] Feb, Acute bronchitis, unspecified organism J20.9 [place] [address] [place] [id number] [place] [address] Feb, Controlled type 2 diabetes mellitus without complication, without long-term current use of insulin E11.9 [place] [address] [place] [id number] [place] [address] Jan, Controlled type 2 diabetes mellitus without complication, without long-term current use of insulin E11.9 and Anxiety F41.9 [place] [address] [place] [id number] [place] [address] Dec, [place] [address] [place] [id number] [place] [address] Nov, Diabetes type 2, controlled E11.9 [place] [id number] [place] [address] Nov, Acute pain of left shoulder M25.512 [facility] [place] [address] [place] [id number] [place] [address] October, Cellulitis of face L03.211 [place] [address] [place] [id number] [place] [address] October, Diabetes type 2, controlled E11.9 [place] [address] [place] [id number] [place] [address] October, Diabetes type 2, controlled E11.9 [place] [address] [address] Sep, Generalized anxiety disorder F41.1 ; Depression F32.9 and FH: memory loss Z82.0 [place] [address] [address] Sep, FH: memory loss Z82.0 ; Major depression, recurrent F33.9 and Anxiety disorder, unspecified F41.9 [place] [address] [address] Aug, PTSD (post-traumatic stress disorder) F43.10 ; Generalized anxiety disorder F41.1 and FH: memory loss Z82.0 [place] [address] [address] Aug, FH: memory loss Z82.0 ; Depression F32.9 and PTSD (post-traumatic stress disorder) F43.10 [place] [address] [place] [id number] [place] [address] Jul, Major depression, recurrent F33.9 ; Generalized anxiety disorder F41.1 and Alzheimer disease G30.9 [place] [address] [address] Jul, Diabetes E11.9 and Mood disorder F39 [place] [address] [address] Jul, Dental examination Z01.[address] [address] Apr, Exertional dyspnea R06.09 and Chronic obstructive pulmonary disease, unspecified COPD type J44.9 [place] [address] [address] 15 Mar, 2015 [place] [address] [place] [address] Mar, Diabetes [address]9 [facility] [address] [place] [id number] [place] [address] Mar, Diabetes E11.9 ; COPD (chronic obstructive pulmonary disease) J44.9 and Hip pain, right M25.551 [facility] [address] [place] [id number] [place] [address] Dec, [facility] [address] [place] [id number] [place] [address] Nov, COPD exacerbation 491.[address] [facility] [address] [place] [id number] [place] [address] October, Acute contact dermatitis 692.[address] [facility] [address] [place] [id number] [place] [address] October, [facility] [address] [place] [id number] [place] [address] Sep, [facility] [address] [address] Sep, [facility] [address] [id number] [address] Aug, [facility] [address] [address] Aug, [facility] [address] [place] [address] Aug, [facility] [address] [address] Aug, [facility] [address] [address] Jul, [facility] [address] [place] [address] Jul, [facility] [address] [place] [id number] [place] [address] Jul, 2014 [facility] [place] [facility] [address] [id number] [place] [address] Jul, 2014 [facility] [place] [facility] [address] [id number] [place] [address] Jul, 2014 [facility] [place] [facility] [address] [id number] [place] [address] Jul, 2014 [facility] [place] [facility] [address] [id number] [place] [address] May, [facility] [place] [facility] [address] [id number] [place] [address] May, [facility] [place] [facility] [address] [id number] [place] [address] May, [facility] [place] [facility] [address] [id number] [place] [address] May, [facility] [place] [facility] [address] [id number] [place] [address] May, [facility] [place] [facility] [address] [facility] [id number] [place] [address] May, [facility] [place] [facility] [address] [facility] [id number] [place] [address] Apr, [facility] [place] [facility] [address] [id number] [place] [address] Apr, [facility] [place] [facility] [address] [id number] [place] [address] Apr, [facility] [place] [facility] [address] [id number] [place] [address] Apr, [facility] [place] [facility] [address] [id number] [place] [address] Mar, [facility] [place] [facility] [address] [id number] [place] [address] Mar, [facility] [place] [facility] [address] [id number] [place] [address] Feb, [facility] [place] [facility] [address] [id number] [place] [address] Feb, [facility] [place] [facility] [address] [id number] [place] [address] Jan, [facility] [place] [facility] [address] [id number] [place] [address] Jan, [facility] [place] [facility] [address] [id number] [place] [address] Dec, [facility] [place] [facility] [address] [id number] [place] [address] Dec, [facility] [place] [facility] [address] [id number] [place] [address] October, [facility] [place] [facility] [address] [id number] [place] [address] October, [facility] [place] [facility] [address] [id number] [place] [address] October, [facility] [place] [facility] [address] [id number] [place] [address] October, [facility] [place] [facility] [address] [id number] [place] [address] October, [facility] [place] [facility] [address] [id number] [place] [address] October, [facility] [place] [facility] [address] [id number] [place] [address] Sep, [facility] [place] [facility] [address] [id number] [place] [address] Sep, [facility] [place] [facility] [address] [id number] [place] [address] Sep, [facility] [place] [facility] [address] [id number] [place] [address] 18 Sep, 2013 [facility] [place] [facility] [address] [id number] [place] [address] 10 Sep, 2013 [facility] [place] [facility] [address] [id number] [place] [address] 10 Sep, 2013 [facility] [place] [facility] [address] [id number] [place] [address] 08 Sep, 2013 [facility] [place] [facility] [address] [id number] [place] [address] 08 Sep, 2013 [facility] [place] [facility] [address] [id number] [place] [address] 26 Aug, 2013 [facility] [place] [facility] [address] [id number] [place] [address] 14 Aug, 2013 [facility] [place] [facility] [address] [id number] [place] [address] 14 Aug, 2013 [facility] [place] [facility] [address] [id number] [place] [address] Aug, [facility] [place] [facility] [address] [id number] [place] [address] Aug, [facility] [place] [facility] [address] [facility] [id number] [place] [address] Aug, [facility] [place] [facility] [address] [id number] [place] [address] 24 Jul, 2013 [facility] [place] [facility] [address] [id number] [place] [address] Jul, [facility] [place] [facility] [address] [id number] [place] [address] Jul, [facility] [place] [facility] [address] [id number] [place] [address] Jul, [facility] [place] [facility] [address] [id number] [place] [address] May, [facility] [address] [id number] [place] [address] May, [facility] [place] [facility] [address] [id number] [place] [address] May, [facility] [place] [facility] [address] [id number] [place] [address] May, [facility] [place] [facility] [address] [id number] [place] [address] Apr, [facility] [place] [facility] [address] [id number] [place] [address] Apr, [facility] [place] [facility] [address] [id number] [place] [address] Apr, [facility] [place] [facility] [address] [id number] [place] [address] Apr, [facility] [place] [facility] [address] [id number], [place] [address] Apr, [facility] [place] [facility] [address] [id number] [place] [address] Apr, [facility] [place] [facility] [address] [id number], [place] [address] Apr, [facility] [place] [facility] [address] [id number], [place] [address] Apr, [facility] [place] [facility] [address] [id number], [place] [address] Mar, [facility] [place] [facility] [address] [id number], [place] [address] Dec, [facility] [place] [facility] [address] [id number], [place] [address] Dec, [facility] [place] [facility] [address] [facility] [id number], [place] [address] Nov, [facility] [place] [facility] [address] [id number], [place] [address] Nov, [facility] [address] [id number] [place] [address] Nov, [facility] [place] [facility] [address] [id number] [place] [address] Sep, [facility] [place] [facility] [address] [facility] [id number] [place] [address] Aug, [facility] [place] [facility] [address] [id number] [place] [address] Aug, [facility] [address] [id number] [place] [address] 08 Aug, 2012 [facility] [place] [facility] [address] [facility] [id number] [place] [address] Aug, [facility] [address] [place] [id number] [place] [address] Jul, [facility] [place] [facility] [address] [facility] [id number] [place] [address] Jul, [facility] [address] [facility] [id number] [place] [address] May, [facility] [place] [facility] [address] [facility] [id number] [place] [address] May, [facility] [address] [facility] [id number] [place] [address] May, [facility] [place] [facility] [address] [facility] [id number] [place] [address] Apr, [facility] [place] [facility] [address] [id number] [place] [address] Apr, [facility] [place] [facility] [address] [facility] [id number] [place] [address] Apr, [facility] [place] [facility] [address] [place] [id number] [place] [address] Apr, [facility] [place] [facility] [address] [id number] [place] [address] Apr, [facility] [place] [facility] [address] [id number] [place] [address] Apr, [facility] [place] [facility] [address] [id number] [place] [address] Mar, [facility] [place] [facility] [address] [id number] [place] [address] Mar, [facility] [place] [facility] [address] [id number] [place] [address] Mar, [facility] [place] [facility] [address] [id number] [place] [address] 14 Feb, 2012 [facility] [place] [facility] [address] [id number] [place] [address] Feb, [facility] [place] [facility] [address] [id number] [place] [address] Feb, [facility] [place] [facility] [address] [id number] [place] [address] Jan, [facility] [place] [facility] [address] [id number] [place] [address] Jan, [facility] [place] [facility] [address] [id number] [place] [address] Jan, [facility] [place] [facility] [address] [id number] [place] [address] Jan, [facility] [place] [facility] [address] [id number] [place] [address] Dec, [facility] [place] [facility] [address] [id number] [place] [address] Dec, [facility] [place] [facility] [address] [id number] [place] [address] Nov, [facility] [place] [facility] [address] [id number] [place] [address] Nov, [facility] [address] [id number] [place] [address] October, [facility] [place] [facility] [address] [id number] [place] [address] October, [facility] [place] [facility] [address] [facility] [id number] [place] [address] Sep, [facility] [place] [facility] [address] [id number] [place] [address] Aug, [facility] [place] [facility] [address] [id number] [place] [address] Aug, [facility] [place] [facility] [address] [id number] [place] [address] Jul, [facility] [place] [facility] [address] [id number] [place] [address] Jun, [facility] [place] [facility] [address] [id number], [place] [address] Jun, [facility] [address] [id number], [place] [address] Jun, [facility] [place] [facility] [address] [id number] [place] [address] Jun, [facility] [place] [facility] [address] [id number], [place] [address] May, [facility] [place] [facility] [address] [id number], [place] [address] May, [facility] [place] [facility] [address] [id number] [place] [address] Mar, [facility] [place] [facility] [address] [id number], [place] [address] Mar, [facility] [place] [facility] [address] [id number], [place] [address] Feb, [facility] [place] [facility] [address] [id number] [address] 12 Dec, 2010 [facility] [id number] [place] [address] [address], [address] [facility] [id number], [place] [address] [address], [address] [facility] [id number], [place] [address] May, [facility] [id number] [address] Jan, [facility] [id number] [place] [address] Apr, [facility] [id number] [address] Apr, [facility] [id number] [address] Jan, [facility] [address] [id number] [id number] 10 Aug, 2008 IMMUNIZATIONS No Known Immunizations SOCIAL HISTORY Never Assessed REASON FOR VISIT [facility] PLAN OF CARE VITAL SIGNS MEDICATIONS Unknown [...]
--- OUTSIDE RECORDS SUMMARY | 2019-01-20 14:51 | XMS REPORT ---
Author Author Migration, Doctor Organization [facility] Address Unknown Phone Unavailable Care Team Providers Care Paper Colorer Name Role Phone Migration, Doctor Unavailable Unavailable PROBLEMS Type Condition ICD9-CM Code XKU73-CV Code Onset Dates Condition Status SNOMED Code Problem Anxiety F41.9 Active 29719089 Problem Flat foot [pes planus] (acquired), right foot M21.41 Active 91767263 Problem Alzheimers disease with early onset G30.0 Active 4504189 Problem Diabetes E11.9 Active 919607098 Problem Moderate episode of recurrent major depressive disorder F33.1 Active 488207436 Problem Uncontrolled type 2 diabetes mellitus without complication, without long- term current use of insulin E11.65 Active 171704043 Problem Arthritis M19.90 Active 6526641 Problem Diabetic polyneuropathy associated with type 2 diabetes mellitus E11.42 Active 31030919 Problem Type 2 diabetes mellitus with unspecified diabetic retinopathy without macular edema E11.319 Active 070816240 Problem Seasonal allergies J30.2 Active 836006650 Problem Dementia in other diseases classified elsewhere with behavioral disturbance F02.81 Active 986115982 Problem Presence of right artificial hip joint Z96.641 Active 486497743 Problem Type 2 diabetes mellitus with hyperglycemia E11.65 Active 374629442081761 Problem Other chronic pain G89.29 Active 68116352 Problem Major depressive disorder, recurrent, in full remission F33.42 Active 649155074 Problem Corns L84 Active 771831408 Problem Alzheimer''s disease, unspecified G30.9 Active 4905569413344 Problem Dementia with behavioral disturbance, unspecified dementia type F03.91 Active 6450683834483 Problem Vascular dementia with behavior disturbance F01.51 Active 165602578265523 Problem Alzheimer''s disease with early onset G30.0 Active 6813233 ALLERGIES No Information ENCOUNTERS Encounter Location Date Diagnosis [facility] [address] [facility] [id number] [address] Sep, Major depressive disorder, recurrent, in full remission F33.42 ; Other chronic pain G89.29 ; Presence of right artificial hip joint Z96.641 ; Pain in right hip M25.551 and Calcaneal spur of right foot M77.[address] [address] Jun, Uncontrolled type 2 diabetes mellitus without complication, without long-term current use of insulin E11.65 ; Alzheimer''s disease with early onset G30.0 and Dementia in other diseases classified elsewhere with behavioral disturbance F02.81 [place] [address] [address] May, Vascular dementia with behavior disturbance F01.[address] [address] Apr, Dementia with behavioral disturbance, unspecified dementia type F03.[address] [address] Apr, Diabetic polyneuropathy associated with type 2 diabetes mellitus E11.[address] [address] Mar, Dysfunction of both eustachian tubes H69.[address] [address] Mar, Annual physical exam Z00.[address] [address] Mar, Diabetic polyneuropathy associated with type 2 diabetes mellitus E11.42 ; Pain of left foot M79.672 ; Pain in right foot M79.671 ; Alzheimer''s disease, unspecified G30.9 and Dementia in other diseases classified elsewhere with behavioral disturbance F02.81 [facility] [address] [address] Nov, Diabetes E11.9 and Seasonal allergies J30.[address] [address] October, Type 2 diabetes mellitus with hyperglycemia E11.65 and Type 2 diabetes mellitus with unspecified diabetic retinopathy without macular edema E11.319 [place] [address] [place] [id number] [place] [address] October, Diabetes E11.9 ; Alzheimers disease with early onset G30.0 ; Arthritis M19.90 ; Diabetic polyneuropathy associated with type 2 diabetes mellitus E11.42 and Major depressive disorder, recurrent, in full remission F33.42 [place] [address] [place] [id number] [place] [address] Sep, [place] [address] [place] [id number] [place] [address] Sep, Dysfunction of both eustachian tubes H69.83 [place] [id number] [place] [address] Aug, Alzheimer''s disease with early onset G30.0 ; Dementia in other diseases classified elsewhere with behavioral disturbance F02.81 ; 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 and Type 2 diabetes mellitus with hyperglycemia E11.65 [place] [address] [place] [id number] [place] [address] Jul, [place] [id number] [place] [address] Jul, Alzheimer''s disease with early onset G30.0 ; Dementia in other diseases classified elsewhere with behavioral disturbance F02.81 and Uncontrolled type 2 diabetes mellitus without complication, without long-term current use of insulin E11.65 [place] [address] [place] [id number] [place] [address] May, Diabetes type 2, controlled E11.9 ; Bilateral otitis media with effusion H65.93 and Dizziness R42 [facility] [address] [place] [id number] [place] [address] Apr, Dysuria R30.0 and Acute cystitis with hematuria N30.01 [place] [id number] [place] [address] Apr, Moderate episode of recurrent major depressive disorder F33.1 [facility] [place] [address] [address] Mar, Acute cystitis without hematuria N30.00 [place] [address] [address] Feb, Uncontrolled type 2 diabetes mellitus without complication, without long-term current use of insulin E11.65 ; Other Alzheimer''s disease G30.8 and Dementia in other diseases classified elsewhere without behavioral disturbance F02.80 [place] [address] [address] Jan, Diabetes type 2, controlled E11.9 and Alzheimers disease with early onset G30.0 [facility] [place] [address] [address] Dec, Allergic contact dermatitis due to plants, except food L23.7 [facility] [address] [address] Dec, Dysuria R30.0 and Candidiasis of female genitalia B37.[address] [address] Dec, Diabetes E11.9 and Alzheimers disease with early onset G30.0 [facility] [address] [address] Nov, Acute exacerbation of chronic obstructive pulmonary disease (COPD) J44.1 and Vaginal candidiasis B37.3 [place] [address] [address] 15 Nov, 2016 Controlled type 2 diabetes mellitus without complication, without long-term current use of insulin E11.9 and Other Alzheimers disease G30.8 [place] [address] [place] [id number] [place] [address] October, OME (otitis media with effusion), bilateral H65.93 ; Dizziness R42 and Diabetes E11.9 [facility] [place] [id number] [place] [address] Sep, Vertigo R42 ; Heart murmur R01.1 and Dysfunction of inner ear, bilateral H83.93 [place] [id number] [place] [address] Aug, Acute suppurative otitis media of both ears without spontaneous rupture of tympanic membranes, recurrence not specified H66.003 [facility] [address] [address] Aug, Vaginal irritation N89.8 and Acute exacerbation of chronic obstructive pulmonary disease (COPD) J44.[address] [address] Jul, Dementia in other diseases classified elsewhere without behavioral disturbance F02.[address] [address] Jul, [address] [address] Jun, Diabetes type 2, controlled E11.9 ; Alzheimers disease with early onset G30.0 and Dementia in other diseases classified elsewhere without behavioral disturbance F02.80 [place] [id number] [place] [address] May, Diabetes type 2, controlled E11.9 [facility] [place] [id number] [place] [address] May, Vaginal candidiasis B37.3 and Dysuria R30.0 [facility] [address] [address] 05 May, 2016 Cutaneous abscess of head [any part, except face] L02.811 ; Cellulitis of head [any part, except face] L03.811 ; COPD exacerbation J44.1 and Wheezing R06.[address] [address] Apr, [facility] [id number] [place] [address] Apr, Diabetes E11.9 ; Acute upper respiratory infection, unspecified J06.9 and Vagina, candidiasis B37.3 [facility] [address] [place] [id number] [place] [address] Mar, Acute exacerbation of chronic obstructive pulmonary disease (COPD) J44.1 [place] [address] [place] [id number] [place] [address] Mar, Diabetes type 2, controlled E11.9 [facility] [address] [place] [id number] [place] [address] Feb, Acute bronchitis, unspecified organism J20.9 [place] [address] [place] [id number] [place] [address] Feb, Controlled type 2 diabetes mellitus without complication, without long-term current use of insulin E11.9 [place] [address] [place] [id number] [place] [address] Jan, Controlled type 2 diabetes mellitus without complication, without long-term current use of insulin E11.9 and Anxiety F41.9 [place] [address] [place] [id number] [place] [address] Dec, [place] [address] [place] [id number] [place] [address] Nov, Diabetes type 2, controlled E11.9 [place] [id number] [place] [address] Nov, Acute pain of left shoulder M25.512 [facility] [place] [address] [place] [id number] [place] [address] October, Cellulitis of face L03.211 [place] [address] [place] [id number] [place] [address] October, Diabetes type 2, controlled E11.9 [place] [address] [place] [id number] [place] [address] October, Diabetes type 2, controlled E11.9 [place] [address] [address] Sep, Generalized anxiety disorder F41.1 ; Depression F32.9 and FH: memory loss Z82.0 [place] [address] [address] Sep, FH: memory loss Z82.0 ; Major depression, recurrent F33.9 and Anxiety disorder, unspecified F41.9 [place] [address] [address] Aug, PTSD (post-traumatic stress disorder) F43.10 ; Generalized anxiety disorder F41.1 and FH: memory loss Z82.0 [place] [address] [address] Aug, FH: memory loss Z82.0 ; Depression F32.9 and PTSD (post-traumatic stress disorder) F43.10 [place] [address] [place] [id number] [place] [address] Jul, Major depression, recurrent F33.9 ; Generalized anxiety disorder F41.1 and Alzheimer disease G30.9 [place] [address] [address] Jul, Diabetes E11.9 and Mood disorder F39 [place] [address] [address] Jul, Dental examination Z01.[address] [address] Apr, Exertional dyspnea R06.09 and Chronic obstructive pulmonary disease, unspecified COPD type J44.9 [place] [address] [address] 15 Mar, 2015 [place] [address] [place] [address] Mar, Diabetes E11.9 [facility] [address] [place] [id number] [place] [address] Mar, Diabetes E11.9 ; COPD (chronic obstructive pulmonary disease) J44.9 and Hip pain, right M25.551 [facility] [address] [place] [id number] [place] [address] Dec, [facility] [address] [place] [id number] [place] [address] Nov, COPD exacerbation 491.21 and Wheezing 786.07 [facility] [address] [place] [id number] [place] [address] October, Acute contact dermatitis 692.9 and Anhedonia 780.99 [facility] [address] [place] [id number] [place] [address] October, [facility] [address] [place] [id number] [place] [address] Sep, [facility] [address] [address] Sep, [facility] [address] [place] [id number] [address] Aug, [facility] [address] [address] Aug, [facility] [id number] [place] [address] Aug, [facility] [address] [address] Aug, [facility] [address] [address] Jul, [facility] [address] [address] Jul, [facility] [address] [place] [id number] [place] [address] Jul, 2014 [facility] [place] [facility] [address] [id number] [place] [address] Jul, 2014 [facility] [place] [facility] [address] [id number] [place] [address] Jul, 2014 [facility] [place] [facility] [address] [id number] [place] [address] Jul, 2014 [facility] [place] [facility] [address] [id number] [place] [address] May, [facility] [place] [facility] [address] [id number] [place] [address] May, [facility] [place] [facility] [address] [id number] [place] [address] May, [facility] [place] [facility] [address] [id number] [place] [address] May, [facility] [place] [facility] [address] [id number] [place] [address] May, [facility] [place] [facility] [address] [facility] [id number] [place] [address] May, [facility] [place] [facility] [address] [facility] [id number] [place] [address] Apr, [facility] [place] [facility] [address] [id number] [place] [address] Apr, [facility] [place] [facility] [address] [id number] [place] [address] Apr, [facility] [place] [facility] [address] [id number] [place] [address] Apr, [facility] [place] [facility] [address] [id number] [place] [address] Mar, [facility] [place] [facility] [address] [id number] [place] [address] Mar, [facility] [place] [facility] [address] [id number] [place] [address] Feb, [facility] [place] [facility] [address] [id number] [place] [address] Feb, [facility] [place] [facility] [address] [id number] [place] [address] Jan, [facility] [place] [facility] [address] [id number] [place] [address] Jan, [facility] [place] [facility] [address] [id number] [place] [address] Dec, [facility] [place] [facility] [address] [id number] [place] [address] Dec, [facility] [place] [facility] [address] [id number] [place] [address] October, [facility] [place] [facility] [address] [id number] [place] [address] October, [facility] [place] [facility] [address] [id number] [place] [address] October, [facility] [place] [facility] [address] [id number] [place] [address] October, [facility] [place] [facility] [address] [id number] [place] [address] October, [facility] [place] [facility] [address] [id number] [place] [address] October, [facility] [place] [facility] [address] [id number] [place] [address] Sep, [facility] [place] [facility] [address] [id number] [place] [address] Sep, [facility] [place] [facility] [address] [id number] [place] [address] Sep, [facility] [place] [facility] [address] [id number] [place] [address] 18 Sep, 2013 [facility] [place] [facility] [address] [id number] [place] [address] 10 Sep, 2013 [facility] [place] [facility] [address] [id number] [place] [address] 10 Sep, 2013 [facility] [place] [facility] [address] [id number] [place] [address] 08 Sep, 2013 [facility] [place] [facility] [address] [id number] [place] [address] 08 Sep, 2013 [facility] [place] [facility] [address] [id number] [place] [address] 26 Aug, 2013 [facility] [place] [facility] [address] [id number] [place] [address] 14 Aug, 2013 [facility] [place] [facility] [address] [id number] [place] [address] 14 Aug, 2013 [facility] [place] [facility] [address] [id number] [place] [address] Aug, [facility] [place] [facility] [address] [id number] [place] [address] Aug, [facility] [place] [facility] [address] [facility] [id number] [place] [address] Aug, [facility] [place] [facility] [address] [id number] [place] [address] 24 Jul, 2013 [facility] [place] [facility] [address] [id number] [place] [address] Jul, [facility] [place] [facility] [address] [id number] [place] [address] Jul, [facility] [place] [facility] [address] [id number] [place] [address] Jul, [facility] [place] [facility] [address] [id number] [place] [address] May, [facility] [address] [id number] [place] [address] May, [facility] [place] [facility] [address] [id number] [place] [address] May, [facility] [place] [facility] [address] [id number] [place] [address] May, [facility] [place] [facility] [address] [id number] [place] [address] Apr, [facility] [place] [facility] [address] [id number] [place] [address] Apr, [facility] [place] [facility] [address] [id number] [place] [address] Apr, [facility] [place] [facility] [address] [id number] [place] [address] Apr, [facility] [place] [facility] [address] [id number] [address] Apr, [facility] [place] [facility] [address] [id number] [place] [address] Apr, [facility] [place] [facility] [address] [id number] [place] [address] Apr, [facility] [place] [facility] [address] [id number] [place] [address] Apr, [facility] [place] [facility] [address] [id number] [place] [address] Mar, [facility] [place] [facility] [address] [id number] [place] [address] Dec, [facility] [place] [facility] [address] [id number] [address] Dec, [facility] [place] [facility] [address] [facility] [id number] [place] [address] Nov, [facility] [place] [facility] [address] [id number] [place] [address] Nov, [facility] [address] [id number] [place] [address] Nov, [facility] [place] [facility] [address] [id number] [place] [address] Sep, [facility] [place] [facility] [address] [facility] [id number] [place] [address] Aug, [facility] [place] [facility] [address] [id number] [place] [address] Aug, [facility] [address] [id number] [place] [address] 08 Aug, 2012 [facility] [place] [facility] [address] [facility] [id number] [place] [address] Aug, [facility] [address] [place] [id number] [place] [address] Jul, [facility] [place] [facility] [address] [facility] [id number] [place] [address] Jul, [facility] [address] [facility] [id number] [place] [address] May, [facility] [place] [facility] [address] [facility] [id number] [place] [address] May, [facility] [address] [facility] [id number] [place] [address] May, [facility] [place] [facility] [address] [facility] [id number] [place] [address] Apr, [facility] [place] [facility] [address] [id number] [place] [address] Apr, [facility] [place] [facility] [address] [facility] [id number] [place] [address] Apr, [facility] [place] [facility] [address] [place] [id number] [place] [address] Apr, [facility] [place] [facility] [address] [id number] [place] [address] Apr, [facility] [place] [facility] [address] [id number] [place] [address] Apr, [facility] [place] [facility] [address] [id number] [place] [address] Mar, [facility] [place] [facility] [address] [id number] [place] [address] Mar, [facility] [place] [facility] [address] [id number] [place] [address] Mar, [facility] [place] [facility] [address] [id number] [place] [address] 14 Feb, 2012 [facility] [place] [facility] [address] [id number] [place] [address] Feb, [facility] [place] [facility] [address] [id number] [place] [address] Feb, [facility] [place] [facility] [address] [id number] [place] [address] Jan, [facility] [place] [facility] [address] [id number] [place] [address] Jan, [facility] [place] [facility] [address] [id number] [place] [address] Jan, [facility] [place] [facility] [address] [id number] [place] [address] Jan, [facility] [place] [facility] [address] [id number] [place] [address] Dec, [facility] [place] [facility] [address] [id number] [place] [address] Dec, [facility] [place] [facility] [address] [id number] [place] [address] Nov, [facility] [place] [facility] [address] [id number] [place] [address] Nov, [facility] [address] [id number] [place] [address] October, [facility] [place] [facility] [address] [id number] [place] [address] October, [facility] [place] [facility] [address] [facility] [id number] [place] [address] Sep, [facility] [place] [facility] [address] [id number] [place] [address] Aug, [facility] [place] [facility] [address] [id number] [place] [address] Aug, [facility] [place] [facility] [address] [id number] [place] [address] Jul, [facility] [place] [facility] [address] [id number] [place] [address] Jun, [facility] [place] [facility] [address] [id number] [place] [address] Jun, [facility] [address] [id number] [place] [address] Jun, [facility] [place] [facility] [address] [id number] [place] [address] Jun, [facility] [place] [facility] [address] [id number] [place] [address] May, [facility] [place] [facility] [address] [id number] [place] [address] May, [facility] [place] [facility] [address] [id number] [place] [address] Mar, [facility] [place] [facility] [address] [id number] [place] [address] Mar, [facility] [place] [facility] [address] [id number] [place] [address] Feb, [facility] [place] [facility] [address] [id number] [address] 12 Dec, 2010 [facility] [id number] [address] 18 Aug, 2010 [facility] [id number] [address] 16 Aug, 2010 [facility] [id number] [address] May, [facility] [id number] [address] Jan, [facility] [id number] [place] [address] Apr, [facility] [id number] [address] Apr, [facility] [id number] [address] Jan, [facility] [address] [id number] [address] 10 Aug, 2008 IMMUNIZATIONS No Known Immunizations SOCIAL HISTORY Never Assessed REASON FOR VISIT [facility] PLAN OF CARE VITAL SIGNS MEDICATIONS [...]
--- OUTSIDE RECORDS SUMMARY | 2019-01-20 14:52 | XMS REPORT ---
Author Author Migration, Doctor Organization [facility] Address Unknown Phone Unavailable Care Team Providers Care Special Equipment Technician Name Role Phone Migration, Doctor Unavailable Unavailable PROBLEMS Type Condition ICD9-CM Code MGS45-AB Code Onset Dates Condition Status SNOMED Code Problem Corns L84 Active 701679879 Problem Anxiety F41.9 Active 18083333 Problem Flat foot [pes planus] (acquired), right foot M21.41 Active 64623486 Problem Alzheimers disease with early onset G30.0 Active 8978566 Problem Diabetes E11.9 Active 443999659 Problem Moderate episode of recurrent major depressive disorder F33.1 Active 245638963 Problem Uncontrolled type 2 diabetes mellitus without complication, without long- term current use of insulin E11.65 Active 928953819 Problem Major depressive disorder, recurrent, in full remission F33.42 Active 272617519 Problem Type 2 diabetes mellitus with hyperglycemia E11.65 Active 209062361107319 Problem Type 2 diabetes mellitus with unspecified diabetic retinopathy without macular edema E11.319 Active 667770319 Problem Vascular dementia with behavior disturbance F01.51 Active 667006270652201 Problem Arthritis M19.90 Active 1060511 Problem Alzheimer''s disease with early onset G30.0 Active 7683074 Problem Diabetic polyneuropathy associated with type 2 diabetes mellitus E11.42 Active 50479457 Problem Seasonal allergies J30.2 Active 640336772 Problem Dementia in other diseases classified elsewhere with behavioral disturbance F02.81 Active 624233317 Problem Alzheimer''s disease, unspecified G30.9 Active 4156405801349 Problem Dementia with behavioral disturbance, unspecified dementia type F03.91 Active [id number] ALLERGIES No Information ENCOUNTERS Encounter Location Date Diagnosis [facility] [address] [facility] [id number] [address] Sep, [facility] [address] [facility] [id number] [address] Jun, Uncontrolled type 2 diabetes mellitus without complication, without long-term current use of insulin E11.65 ; Alzheimer''s disease with early onset G30.0 and Dementia in other diseases classified elsewhere with behavioral disturbance F02.81 [place] [address] [place] [id number] [place] [address] May, Vascular dementia with behavior disturbance F01.51 [place] [address] [place] [id number] [place] [address] 30 Apr, 2018 Dementia with behavioral disturbance, unspecified dementia type F03.91 [place] [address] [place] [id number] [place] [address] Apr, Diabetic polyneuropathy associated with type 2 diabetes mellitus E11.[address] [address] Mar, Dysfunction of both eustachian tubes H69.[address] [address] Mar, Annual physical exam Z00.00 [place] [id number] [place] [address] Mar, Diabetic polyneuropathy associated with type 2 diabetes mellitus E11.42 ; Pain of left foot M79.672 ; Pain in right foot M79.671 ; Alzheimer''s disease, unspecified G30.9 and Dementia in other diseases classified elsewhere with behavioral disturbance F02.81 [facility] [address] [place] [id number] [place] [address] Nov, Diabetes E11.9 and Seasonal allergies J30.2 [place] [id number] [place] [address] October, Type 2 diabetes mellitus with hyperglycemia E11.65 and Type 2 diabetes mellitus with unspecified diabetic retinopathy without macular edema E11.319 [place] [address] [place] [id number] [place] [address] October, Diabetes E11.9 ; Alzheimers disease with early onset G30.0 ; Arthritis M19.90 ; Diabetic polyneuropathy associated with type 2 diabetes mellitus E11.42 and Major depressive disorder, recurrent, in full remission F33.[address] [address] Sep, [address] [address] Sep, Dysfunction of both eustachian tubes H69.[address] [address] Aug, Alzheimer''s disease with early onset G30.0 ; Dementia in other diseases classified elsewhere with behavioral disturbance F02.81 ; 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 and Type 2 diabetes mellitus with hyperglycemia E11.[address] [address] Jul, [address] [address] Jul, Alzheimer''s disease with early onset G30.0 ; Dementia in other diseases classified elsewhere with behavioral disturbance F02.81 and Uncontrolled type 2 diabetes mellitus without complication, without long-term current use of insulin E11.[address] [address] May, Diabetes type 2, controlled E11.9 ; Bilateral otitis media with effusion H65.93 and Dizziness R42 [facility] [address] [place] [id number] [place] [address] Apr, Dysuria R30.0 and Acute cystitis with hematuria N30.[address] [address] Apr, Moderate episode of recurrent major depressive disorder F33.1 [facility] [address] [address] Mar, Acute cystitis without hematuria N30.[address] [address] Feb, Uncontrolled type 2 diabetes mellitus without complication, without long-term current use of insulin E11.65 ; Other Alzheimer''s disease G30.8 and Dementia in other diseases classified elsewhere without behavioral disturbance F02.80 [place] [address] [address] Jan, Diabetes type 2, controlled E11.9 and Alzheimers disease with early onset G30.0 [facility] [address] [address] Dec, Allergic contact dermatitis due to plants, except food L23.7 [facility] [address] [address] Dec, Dysuria R30.0 and Candidiasis of female genitalia B37.[address] [address] Dec, Diabetes E11.9 and Alzheimers disease with early onset G30.0 [facility] [address] [address] Nov, Acute exacerbation of chronic obstructive pulmonary disease (COPD) J44.1 and Vaginal candidiasis B37.[address] [address] Nov, Controlled type 2 diabetes mellitus without complication, without long-term current use of insulin E11.9 and Other Alzheimers disease G30.8 [place] [id number] [place] [address] October, OME (otitis media with effusion), bilateral H65.93 ; Dizziness R42 and Diabetes E11.9 [facility] [address] [address] Sep, Vertigo R42 ; Heart murmur R01.1 and Dysfunction of inner ear, bilateral H83.[address] [address] Aug, Acute suppurative otitis media of both ears without spontaneous rupture of tympanic membranes, recurrence not specified H66.003 [facility] [address] [place] [id number] [place] [address] Aug, Vaginal irritation N89.8 and Acute exacerbation of chronic obstructive pulmonary disease (COPD) J44.1 [place] [address] [place] [id number] [place] [address] Jul, Dementia in other diseases classified elsewhere without behavioral disturbance F02.80 [place] [address] [place] [id number] [place] [address] Jul, [place] [address] [address] Jun, Diabetes type 2, controlled E11.9 ; Alzheimers disease with early onset G30.0 and Dementia in other diseases classified elsewhere without behavioral disturbance F02.80 [place] [address] [address] May, Diabetes type 2, controlled E11.9 [facility] [address] [place] [id number] [place] [address] May, Vaginal candidiasis B37.3 and Dysuria R30.0 [facility] [place] [id number] [place] [address] 05 May, 2016 Cutaneous abscess of head [any part, except face] L02.811 ; Cellulitis of head [any part, except face] L03.811 ; COPD exacerbation J44.1 and Wheezing R06.2 [place] [address] [place] [id number] [place] [address] Apr, [address] [address] Apr, Diabetes E11.9 ; Acute upper respiratory infection, unspecified J06.9 and Vagina, candidiasis B37.3 [facility] [address] [place] [id number] [place] [address] Mar, Acute exacerbation of chronic obstructive pulmonary disease (COPD) J44.1 [place] [address] [place] [id number] [place] [address] Mar, Diabetes type 2, controlled E11.9 [facility] [address] [place] [id number] [place] [address] Feb, Acute bronchitis, unspecified organism J20.9 [facility] [address] [place] [id number] [place] [address] Feb, Controlled type 2 diabetes mellitus without complication, without long-term current use of insulin E11.9 [place] [address] [place] [id number] [place] [address] Jan, Controlled type 2 diabetes mellitus without complication, without long-term current use of insulin E11.9 and Anxiety F41.9 [place] [address] [place] [id number] [place] [address] Dec, [place] [address] [place] [id number] [place] [address] Nov, Diabetes type 2, controlled E11.9 [place] [address] [place] [id number] [place] [address] Nov, Acute pain of left shoulder M25.512 [facility] [address] [place] [id number] [place] [address] October, Cellulitis of face L03.211 [place] [address] [place] [id number] [place] [address] October, Diabetes type 2, controlled E11.9 [place] [address] [place] [id number] [place] [address] October, Diabetes type 2, controlled E11.9 [place] [address] [place] [id number] [place] [address] Sep, Generalized anxiety disorder F41.1 ; Depression F32.9 and FH: memory loss Z82.0 [place] [address] [address] Sep, FH: memory loss Z82.0 ; Major depression, recurrent F33.9 and Anxiety disorder, unspecified F41.9 [place] [address] [place] [id number] [place] [address] Aug, PTSD (post-traumatic stress disorder) F43.10 ; Generalized anxiety disorder F41.1 and FH: memory loss Z82.0 [place] [address] [place] [id number] [place] [address] Aug, FH: memory loss Z82.0 ; Depression F32.9 and PTSD (post-traumatic stress disorder) F43.10 [place] [address] [place] [id number] [place] [address] Jul, Major depression, recurrent F33.9 ; Generalized anxiety disorder F41.1 and Alzheimer disease G30.9 [place] [address] [place] [id number] [place] [address] Jul, Diabetes E11.9 and Mood disorder F39 [place] [address] [place] [id number] [place] [address] 17 Jul, 2015 Dental examination Z01.20 [place] [address] [place] [id number] [place] [address] Apr, Exertional dyspnea R06.09 and Chronic obstructive pulmonary disease, unspecified COPD type J44.9 [place] [address] [address] Mar, [place] [address] [place] [id number] [place] [address] Mar, Diabetes E11.9 [place] [address] [place] [id number] [place] [address] 05 Mar, 2015 Diabetes E11.9 ; COPD (chronic obstructive pulmonary disease) J44.9 and Hip pain, right M25.551 [place] [address] [address] Dec, [facility] [address] [place] [id number] [place] [address] Nov, COPD exacerbation 491.21 and Wheezing 786.07 [facility] [address] [place] [id number] [place] [address] October, Acute contact dermatitis 692.9 and Anhedonia 780.99 [facility] [address] [place] [id number] [place] [address] October, [facility] [address] [place] [id number] [place] [address] Sep, [facility] [address] [place] [id number] [place] [address] Sep, [facility] [address] [place] [id number] [place] [address] Aug, [facility] [id number] [place] [address] Aug, [facility] [address] [place] [address] Aug, [facility] [address] [address] Aug, [facility] [address] [address] Jul, [facility] [address] [address] Jul, [facility] [address] [place] [address] Jul, [facility] [address] [address] Jul, [facility] [address] [address] Jul, [facility] [place] [facility] [address] [id number] [place] [address] Jul, [facility] [place] [facility] [address] [id number] [place] [address] May, [facility] [place] [facility] [address] [id number] [place] [address] May, [facility] [place] [facility] [address] [id number] [place] [address] May, [facility] [place] [facility] [address] [id number] [place] [address] May, [facility] [place] [facility] [address] [id number] [place] [address] May, [facility] [place] [facility] [address] [id number] [place] [address] May, [facility] [place] [facility] [address] [id number] [place] [address] Apr, [facility] [place] [facility] [address] [id number] [place] [address] Apr, [facility] [place] [facility] [address] [id number] [place] [address] Apr, [facility] [place] [facility] [address] [id number] [place] [address] Apr, [facility] [place] [facility] [address] [id number], [place] [address] Mar, [facility] [place] [facility] [address] [id number] [place] [address] Mar, [facility] [place] [facility] [address] [id number] [address] Feb, [facility] [place] [facility] [address] [id number] [place] [address] Feb, [facility] [place] [facility] [address] [id number] [place] [address] Jan, [facility] [place] [facility] [address] [id number] [place] [address] Jan, [facility] [place] [facility] [address] [id number] [place] [address] Dec, [facility] [place] [facility] [address] [id number] [place] [address] Dec, [facility] [place] [facility] [address] [id number] [place] [address] October, [facility] [place] [facility] [address] [id number] [place] [address] October, [facility] [place] [facility] [address] [id number] [place] [address] October, [facility] [place] [facility] [address] [id number] [place] [address] October, [facility] [place] [facility] [address] [id number] [place] [address] October, [facility] [place] [facility] [address] [id number] [place] [address] October, [facility] [place] [facility] [address] [id number] [place] [address] Sep, [facility] [place] [facility] [address] [id number] [place] [address] Sep, [facility] [place] [facility] [address] [id number] [place] [address] Sep, [facility] [place] [facility] [address] [id number] [place] [address] Sep, [facility] [place] [facility] [address] [id number] [place] [address] Sep, [facility] [place] [facility] [address] [id number] [place] [address] Sep, [facility] [place] [facility] [address] [id number] [place] [address] 08 Sep, 2013 [facility] [place] [facility] [address] [id number] [place] [address] 08 Sep, 2013 [facility] [place] [facility] [address] [id number] [place] [address] 26 Aug, 2013 [facility] [place] [facility] [address] [id number] [place] [address] 14 Aug, 2013 [facility] [place] [facility] [address] [id number] [place] [address] 14 Aug, 2013 [facility] [place] [facility] [address] [id number] [place] [address] Aug, [facility] [place] [facility] [address] [id number] [place] [address] Aug, [facility] [place] [facility] [address] [id number] [place] [address] Aug, [facility] [place] [facility] [address] [id number] [place] [address] Jul, [facility] [place] [facility] [address] [id number] [place] [address] Jul, [facility] [place] [facility] [address] [id number] [place] [address] Jul, [facility] [place] [facility] [address] [id number] [place] [address] Jul, [facility] [place] [facility] [address] [id number] [place] [address] May, [facility] [place] [facility] [address] [id number] [place] [address] May, [facility] [place] [facility] [address] [id number] [place] [address] May, [facility] [place] [facility] [address] [id number], [place] [address] May, [facility] [place] [facility] [address] [id number] [place] [address] Apr, [facility] [place] [facility] [address] [id number] [place] [address] Apr, [facility] [place] [facility] [address] [id number] [place] [address] Apr, [facility] [place] [facility] [address] [id number] [place] [address] Apr, [facility] [place] [facility] [address] [id number] [place] [address] Apr, [facility] [place] [facility] [address] [id number] [place] [address] Apr, [facility] [place] [facility] [address] [id number] [place] [address] Apr, [facility] [place] [facility] [address] [id number] [place] [address] Apr, [facility] [place] [facility] [address] [id number] [place] [address] Mar, [facility] [place] [facility] [address] [id number] [place] [address] Dec, [facility] [place] [facility] [address] [id number], [place] [address] Dec, [facility] [place] [facility] [address] [id number], [place] [address] Nov, [facility] [place] [facility] [address] [id number] [place] [address] Nov, [facility] [place] [facility] [address] [id number] [place] [address] Nov, [facility] [place] [facility] [address] [id number] [place] [address] Sep, [facility] [place] [facility] [address] [id number] [place] [address] 26 Aug, 2012 [facility] [place] [facility] [address] [id number] [place] [address] 25 Aug, 2012 [facility] [place] [facility] [address] [id number] [place] [address] 08 Aug, 2012 [facility] [place] [facility] [address] [id number] [place] [address] 07 Aug, 2012 [facility] [place] [facility] [address] [id number] [place] [address] Jul, [facility] [place] [facility] [address] [id number] [place] [address] Jul, [facility] [place] [facility] [address] [id number] [place] [address] May, [facility] [place] [facility] [address] [id number] [place] [address] May, [facility] [place] [facility] [address] [id number] [place] [address] May, [facility] [place] [facility] [address] [id number] [place] [address] Apr, [facility] [place] [facility] [address] [id number] [place] [address] Apr, [facility] [place] [facility] [address] [id number] [place] [address] Apr, [facility] [place] [facility] [address] [id number] [place] [address] Apr, [facility] [place] [facility] [address] [id number] [place] [address] Apr, [facility] [place] [facility] [address] [id number] [place] [address] Apr, [facility] [place] [facility] [address] [id number] [place] [address] Mar, [facility] [place] [facility] [address] [id number] [place] [address] Mar, [facility] [place] [facility] [address] [id number] [place] [address] Mar, [facility] [place] [facility] [address] [id number] [place] [address] 14 Feb, 2012 [facility] [place] [facility] [address] [id number] [place] [address] Feb, [facility] [place] [facility] [address] [id number] [place] [address] Feb, [facility] [place] [facility] [address] [id number] [place] [address] Jan, [facility] [place] [facility] [address] [id number] [place] [address] Jan, [facility] [place] [facility] [address] [id number] [place] [address] Jan, [facility] [place] [facility] [address] [id number] [place] [address] Jan, [facility] [place] [facility] [address] [id number] [place] [address] Dec, [facility] [place] [facility] [address] [id number] [place] [address] Dec, [facility] [place] [facility] [address] [id number] [address] Nov, [facility] [place] [facility] [address] [id number] [place] [address] Nov, [facility] [place] [facility] [address] [id number] [place] [address] October, [facility] [place] [facility] [address] [id number] [place] [address] October, [facility] [place] [facility] [address] [id number] [place] [address] Sep, [facility] [address] [id number] [place] [address] Aug, [facility] [place] [facility] [address] [id number] [place] [address] Aug, [facility] [address] [id number] [place] [address] Jul, [facility] [place] [facility] [address] [id number] [place] [address] Jun, [facility] [address] [id number] [place] [address] Jun, [facility] [place] [facility] [address] [id number] [place] [address] Jun, [facility] [address] [id number] [place] [address] Jun, [facility] [address] [id number] [place] [address] May, [facility] [place] [facility] [address] [id number] [place] [address] May, [facility] [place] [facility] [address] [id number] [place] [address] Mar, [facility] [place] [facility] [address] [id number] [place] [address] Mar, [facility] [place] [facility] [address] [id number] [place] [address] Feb, [facility] [place] [facility] [address] [id number] [place] [address] Dec, [facility] [place] [facility] [address] [id number] [place] [address] 18 Aug, 2010 [facility] [place] [facility] [address] [id number] [place] [address] 16 Aug, 2010 [facility] [address] [facility] [id number] [address] May, [facility] [address] [id number] [address] Jan, [facility] [address] [id number] [address] Apr, [facility] [id number] [address] Apr, [facility] [address] [id number] [address] Jan, [facility] [address] [id number] [address] Aug, IMMUNIZATIONS No Known Immunizations SOCIAL HISTORY Never Assessed REASON FOR VISIT EMR-[facility] [place] PLAN OF CARE VITAL SIGNS MEDICATIONS Unknown [...]
--- OUTSIDE RECORDS SUMMARY | 2019-01-20 14:53 | XMS REPORT ---
Author Author Migration, Doctor Organization [facility] Address Unknown Phone Unavailable Care Team Providers Care Software Development Engineer Name Role Phone Migration, Doctor Unavailable Unavailable PROBLEMS Type Condition ICD9-CM Code EQL35-VN Code Onset Dates Condition Status SNOMED Code Problem Corns L84 Active 125647345 Problem Anxiety F41.9 Active 46577231 Problem Flat foot [pes planus] (acquired), right foot M21.41 Active 89696836 Problem Alzheimers disease with early onset G30.0 Active 3994950 Problem Diabetes E11.9 Active 326621340 Problem Moderate episode of recurrent major depressive disorder F33.1 Active 328106803 Problem Uncontrolled type 2 diabetes mellitus without complication, without long- term current use of insulin E11.65 Active 287839077 Problem Major depressive disorder, recurrent, in full remission F33.42 Active 960221461 Problem Type 2 diabetes mellitus with hyperglycemia E11.65 Active 869066615511512 Problem Type 2 diabetes mellitus with unspecified diabetic retinopathy without macular edema E11.319 Active 293843623 Problem Vascular dementia with behavior disturbance F01.51 Active 745264238189820 Problem Arthritis M19.90 Active 0954567 Problem Alzheimer''s disease with early onset G30.0 Active 1222900 Problem Diabetic polyneuropathy associated with type 2 diabetes mellitus E11.42 Active 91815012 Problem Seasonal allergies J30.2 Active 704773883 Problem Dementia in other diseases classified elsewhere with behavioral disturbance F02.81 Active 891849610 Problem Alzheimer''s disease, unspecified G30.9 Active 8080817451204 Problem Dementia with behavioral disturbance, unspecified dementia type F03.91 Active [id number] ALLERGIES No Information ENCOUNTERS Encounter Location Date Diagnosis [facility] [address] [facility] [id number] [address] Sep, [facility] [address] [facility] [id number], [place] [address] Jun, Uncontrolled type 2 diabetes mellitus without complication, without long-term current use of insulin E11.65 ; Alzheimer''s disease with early onset G30.0 and Dementia in other diseases classified elsewhere with behavioral disturbance F02.81 [place] [address] [place] [id number] [place] [address] May, Vascular dementia with behavior disturbance F01.51 [place] [address] [place] [id number] [place] [address] 30 Apr, 2018 Dementia with behavioral disturbance, unspecified dementia type F03.91 [place] [address] [place] [id number] [place] [address] Apr, Diabetic polyneuropathy associated with type 2 diabetes mellitus E11.[address] [address] Mar, Dysfunction of both eustachian tubes H69.[address] [address] Mar, Annual physical exam Z00.00 [place] [id number] [place] [address] Mar, Diabetic polyneuropathy associated with type 2 diabetes mellitus E11.42 ; Pain of left foot M79.672 ; Pain in right foot M79.671 ; Alzheimer''s disease, unspecified G30.9 and Dementia in other diseases classified elsewhere with behavioral disturbance F02.81 [facility] [id number] [place] [address] Nov, Diabetes E11.9 and Seasonal allergies J30.2 [place] [id number] [place] [address] October, Type 2 diabetes mellitus with hyperglycemia E11.65 and Type 2 diabetes mellitus with unspecified diabetic retinopathy without macular edema E11.319 [place] [address] [place] [id number] [place] [address] October, Diabetes E11.9 ; Alzheimers disease with early onset G30.0 ; Arthritis M19.90 ; Diabetic polyneuropathy associated with type 2 diabetes mellitus E11.42 and Major depressive disorder, recurrent, in full remission F33.[address] [address] Sep, [address] [address] Sep, Dysfunction of both eustachian tubes H69.[address] [address] Aug, Alzheimer''s disease with early onset G30.0 ; Dementia in other diseases classified elsewhere with behavioral disturbance F02.81 ; 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 and Type 2 diabetes mellitus with hyperglycemia E11.[address] [address] Jul, [address] [address] Jul, Alzheimer''s disease with early onset G30.0 ; Dementia in other diseases classified elsewhere with behavioral disturbance F02.81 and Uncontrolled type 2 diabetes mellitus without complication, without long-term current use of insulin E11.[address] [address] May, Diabetes type 2, controlled E11.9 ; Bilateral otitis media with effusion H65.93 and Dizziness R42 [facility] [address] [place] [id number] [place] [address] Apr, Dysuria R30.0 and Acute cystitis with hematuria N30.[address] [address] Apr, Moderate episode of recurrent major depressive disorder F33.1 [facility] [address] [address] Mar, Acute cystitis without hematuria N30.[address] [address] Feb, Uncontrolled type 2 diabetes mellitus without complication, without long-term current use of insulin E11.65 ; Other Alzheimer''s disease G30.8 and Dementia in other diseases classified elsewhere without behavioral disturbance F02.80 [place] [address] [address] Jan, Diabetes type 2, controlled E11.9 and Alzheimers disease with early onset G30.0 [facility] [address] [address] Dec, Allergic contact dermatitis due to plants, except food L23.7 [facility] [address] [address] Dec, Dysuria R30.0 and Candidiasis of female genitalia B37.[address] [address] Dec, Diabetes E11.9 and Alzheimers disease with early onset G30.0 [facility] [address] [address] Nov, Acute exacerbation of chronic obstructive pulmonary disease (COPD) J44.1 and Vaginal candidiasis B37.[address] [address] Nov, Controlled type 2 diabetes mellitus without complication, without long-term current use of insulin E11.9 and Other Alzheimers disease G30.8 [place] [id number] [place] [address] October, OME (otitis media with effusion), bilateral H65.93 ; Dizziness R42 and Diabetes E11.9 [facility] [address] [address] Sep, Vertigo R42 ; Heart murmur R01.1 and Dysfunction of inner ear, bilateral H83.[address] [address] Aug, Acute suppurative otitis media of both ears without spontaneous rupture of tympanic membranes, recurrence not specified H66.003 [facility] [address] [place] [id number] [place] [address] Aug, Vaginal irritation N89.8 and Acute exacerbation of chronic obstructive pulmonary disease (COPD) J44.1 [place] [address] [place] [id number] [place] [address] Jul, Dementia in other diseases classified elsewhere without behavioral disturbance F02.80 [place] [address] [place] [id number] [place] [address] Jul, [place] [address] [address] Jun, Diabetes type 2, controlled E11.9 ; Alzheimers disease with early onset G30.0 and Dementia in other diseases classified elsewhere without behavioral disturbance F02.80 [place] [address] [address] May, Diabetes type 2, controlled E11.9 [facility] [address] [place] [id number] [place] [address] May, Vaginal candidiasis B37.3 and Dysuria R30.0 [facility] [place] [id number] [place] [address] 05 May, 2016 Cutaneous abscess of head [any part, except face] L02.811 ; Cellulitis of head [any part, except face] L03.811 ; COPD exacerbation J44.1 and Wheezing R06.2 [place] [address] [place] [id number] [place] [address] Apr, [address] [address] Apr, Diabetes E11.9 ; Acute upper respiratory infection, unspecified J06.9 and Vagina, candidiasis B37.3 [facility] [address] [place] [id number] [place] [address] Mar, Acute exacerbation of chronic obstructive pulmonary disease (COPD) J44.1 [place] [address] [place] [id number] [place] [address] Mar, Diabetes type 2, controlled E11.9 [facility] [id number] [place] [address] Feb, Acute bronchitis, unspecified organism J20.9 [facility] [address] [place] [id number] [place] [address] Feb, Controlled type 2 diabetes mellitus without complication, without long-term current use of insulin E11.9 [place] [address] [place] [id number] [place] [address] Jan, Controlled type 2 diabetes mellitus without complication, without long-term current use of insulin E11.9 and Anxiety F41.9 [place] [address] [place] [id number] [place] [address] Dec, [place] [address] [place] [id number] [place] [address] Nov, Diabetes type 2, controlled E11.9 [place] [address] [place] [id number] [place] [address] Nov, Acute pain of left shoulder M25.512 [facility] [id number] [place] [address] October, Cellulitis of face L03.211 [place] [address] [place] [id number] [place] [address] October, Diabetes type 2, controlled E11.9 [place] [address] [place] [id number] [place] [address] October, Diabetes type 2, controlled E11.9 [place] [address] [place] [id number] [place] [address] Sep, Generalized anxiety disorder F41.1 ; Depression F32.9 and FH: memory loss Z82.0 [place] [address] [address] Sep, FH: memory loss Z82.0 ; Major depression, recurrent F33.9 and Anxiety disorder, unspecified F41.9 [place] [address] [place] [id number] [place] [address] Aug, PTSD (post-traumatic stress disorder) F43.10 ; Generalized anxiety disorder F41.1 and FH: memory loss Z82.0 [place] [address] [place] [id number] [place] [address] Aug, FH: memory loss Z82.0 ; Depression F32.9 and PTSD (post-traumatic stress disorder) F43.10 [place] [address] [place] [id number] [place] [address] Jul, Major depression, recurrent F33.9 ; Generalized anxiety disorder F41.1 and Alzheimer disease G30.9 [place] [address] [place] [id number] [place] [address] Jul, Diabetes E11.9 and Mood disorder F39 [place] [address] [place] [id number] [place] [address] 17 Jul, 2015 Dental examination Z01.20 [place] [address] [place] [id number] [place] [address] Apr, Exertional dyspnea R06.09 and Chronic obstructive pulmonary disease, unspecified COPD type J44.9 [place] [address] [address] Mar, [place] [address] [place] [id number] [place] [address] Mar, Diabetes E11.9 [place] [address] [place] [id number] [place] [address] 05 Mar, 2015 Diabetes E11.9 ; COPD (chronic obstructive pulmonary disease) J44.9 and Hip pain, right M25.551 [place] [address] [address] Dec, [facility] [address] [place] [id number] [place] [address] Nov, COPD exacerbation 491.21 and Wheezing 786.07 [facility] [address] [place] [place] [id number] [place] [address] October, Acute contact dermatitis 692.9 and Anhedonia 780.99 [facility] [address] [id number] [place] [address] October, [facility] [id number] [place] [address] Sep, [facility] [id number] [place] [address] Sep, [facility] [id number] [place] [address] Aug, [facility] [id number] [place] [address] Aug, [facility] [id number] [place] [address] Aug, [facility] [address] [address] Aug, [facility] [address], [place] [address] Jul, [facility] [address] [address] Jul, [facility] [id number] [place] [address] Jul, [facility] [address] [address] Jul, [facility] [address] [address] Jul, [facility] [place] [facility] [address] [id number] [place] [address] Jul, [facility] [place] [facility] [address] [id number] [place] [address] May, [facility] [place] [facility] [address] [id number] [place] [address] May, [facility] [place] [facility] [address] [id number] [place] [address] May, [facility] [place] [facility] [address] [id number] [place] [address] May, [facility] [place] [facility] [address] [id number] [place] [address] May, [facility] [place] [facility] [address] [id number] [place] [address] May, [facility] [place] [facility] [address] [id number] [place] [address] Apr, [facility] [place] [facility] [address] [id number] [place] [address] Apr, [facility] [place] [facility] [address] [id number] [place] [address] Apr, [facility] [place] [facility] [address] [id number] [place] [address] Apr, [facility] [place] [facility] [address] [id number], [place] [address] Mar, [facility] [place] [facility] [address] [id number] [place] [address] Mar, [facility] [place] [facility] [address] [id number], [place] [address] Feb, [facility] [place] [facility] [address] [id number] [place] [address] Feb, [facility] [place] [facility] [address] [id number] [place] [address] Jan, [facility] [place] [facility] [address] [id number] [place] [address] Jan, [facility] [place] [facility] [address] [id number] [place] [address] Dec, [facility] [place] [facility] [address] [id number] [place] [address] Dec, [facility] [place] [facility] [address] [id number] [place] [address] October, [facility] [place] [facility] [address] [id number] [place] [address] October, [facility] [place] [facility] [address] [id number] [place] [address] October, [facility] [place] [facility] [address] [id number] [place] [address] October, [facility] [place] [facility] [address] [id number] [place] [address] October, [facility] [place] [facility] [address] [id number] [place] [address] October, [facility] [place] [facility] [address] [id number] [place] [address] Sep, [facility] [place] [facility] [address] [id number] [place] [address] Sep, [facility] [place] [facility] [address] [id number] [place] [address] Sep, [facility] [place] [facility] [address] [id number] [place] [address] Sep, [facility] [place] [facility] [address] [id number] [place] [address] Sep, [facility] [place] [facility] [address] [id number] [place] [address] Sep, [facility] [place] [facility] [address] [id number] [place] [address] 08 Sep, 2013 [facility] [place] [facility] [address] [id number] [place] [address] 08 Sep, 2013 [facility] [place] [facility] [address] [id number] [place] [address] 26 Aug, 2013 [facility] [place] [facility] [address] [id number] [place] [address] 14 Aug, 2013 [facility] [place] [facility] [address] [id number] [place] [address] 14 Aug, 2013 [facility] [place] [facility] [address] [id number] [place] [address] Aug, [facility] [place] [facility] [address] [id number] [place] [address] Aug, [facility] [place] [facility] [address] [id number] [place] [address] Aug, [facility] [place] [facility] [address] [id number] [place] [address] Jul, [facility] [place] [facility] [address] [id number] [place] [address] Jul, [facility] [place] [facility] [address] [id number] [place] [address] Jul, [facility] [place] [facility] [address] [id number] [place] [address] Jul, [facility] [place] [facility] [address] [id number] [place] [address] May, [facility] [place] [facility] [address] [id number] [place] [address] May, [facility] [place] [facility] [address] [id number] [place] [address] May, [facility] [place] [facility] [address] [id number], [place] [address] May, [facility] [place] [facility] [address] [id number] [place] [address] Apr, [facility] [place] [facility] [address] [id number] [place] [address] Apr, [facility] [place] [facility] [address] [id number] [place] [address] Apr, [facility] [place] [facility] [address] [id number] [place] [address] Apr, [facility] [place] [facility] [address] [id number] [place] [address] Apr, [facility] [place] [facility] [address] [id number] [place] [address] Apr, [facility] [place] [facility] [address] [id number] [place] [address] Apr, [facility] [place] [facility] [address] [id number] [place] [address] Apr, [facility] [place] [facility] [address] [id number] [place] [address] Mar, [facility] [place] [facility] [address] [id number] [place] [address] Dec, [facility] [place] [facility] [address] [id number], [place] [address] Dec, [facility] [place] [facility] [address] [id number], [place] [address] Nov, [facility] [place] [facility] [address] [id number] [place] [address] Nov, [facility] [place] [facility] [address] [id number] [place] [address] Nov, [facility] [place] [facility] [address] [id number] [place] [address] Sep, [facility] [place] [facility] [address] [id number] [place] [address] 26 Aug, 2012 [facility] [place] [facility] [address] [id number] [place] [address] 25 Aug, 2012 [facility] [place] [facility] [address] [id number] [place] [address] 08 Aug, 2012 [facility] [place] [facility] [address] [id number] [place] [address] 07 Aug, 2012 [facility] [place] [facility] [address] [id number] [place] [address] Jul, [facility] [place] [facility] [address] [id number] [place] [address] Jul, [facility] [place] [facility] [address] [id number] [place] [address] May, [facility] [place] [facility] [address] [id number] [place] [address] May, [facility] [place] [facility] [address] [id number] [place] [address] May, [facility] [place] [facility] [address] [id number] [place] [address] Apr, [facility] [place] [facility] [address] [id number] [place] [address] Apr, [facility] [place] [facility] [address] [id number] [place] [address] Apr, [facility] [place] [facility] [address] [id number] [place] [address] Apr, [facility] [place] [facility] [address] [id number] [place] [address] Apr, [facility] [place] [facility] [address] [id number] [place] [address] Apr, [facility] [place] [facility] [address] [id number] [place] [address] Mar, [facility] [place] [facility] [address] [id number] [place] [address] Mar, [facility] [place] [facility] [address] [id number] [place] [address] Mar, [facility] [place] [facility] [address] [id number] [place] [address] 14 Feb, 2012 [facility] [place] [facility] [address] [id number] [place] [address] Feb, [facility] [place] [facility] [address] [id number] [place] [address] Feb, [facility] [place] [facility] [address] [id number] [place] [address] Jan, [facility] [place] [facility] [address] [id number] [place] [address] Jan, [facility] [place] [facility] [address] [id number] [place] [address] Jan, [facility] [place] [facility] [address] [id number] [place] [address] Jan, [facility] [place] [facility] [address] [id number] [place] [address] Dec, [facility] [place] [facility] [address] [id number] [place] [address] Dec, [facility] [place] [facility] [address] [id number] [address] Nov, [facility] [place] [facility] [address] [id number] [place] [address] Nov, [facility] [place] [facility] [address] [id number] [place] [address] October, [facility] [place] [facility] [address] [id number] [place] [address] October, [facility] [place] [facility] [address] [id number] [place] [address] Sep, [facility] [address] [id number] [place] [address] Aug, [facility] [place] [facility] [address] [id number] [place] [address] Aug, [facility] [address] [id number] [place] [address] Jul, [facility] [place] [facility] [address] [id number] [place] [address] Jun, [facility] [address] [id number] [place] [address] Jun, [facility] [place] [facility] [address] [id number] [place] [address] Jun, [facility] [address] [id number] [place] [address] Jun, [facility] [address] [id number] [place] [address] May, [facility] [place] [facility] [address] [id number] [place] [address] May, [facility] [place] [facility] [address] [id number] [place] [address] Mar, [facility] [place] [facility] [address] [id number] [place] [address] Mar, [facility] [place] [facility] [address] [id number] [place] [address] Feb, [facility] [place] [facility] [address] [id number] [place] [address] Dec, [facility] [place] [facility] [address] [id number] [place] [address] 18 Aug, 2010 [facility] [place] [facility] [address] [id number] [place] [address] 16 Aug, 2010 [facility] [address] [facility] [id number] [address] May, [facility] [address] [id number] [address] Jan, [facility] [address] [id number], [place] [address] Apr, [facility] [id number], [place] [address] Apr, [facility] [address] [id number], [place] [address] Jan, [facility] [address] [id number] [address] Aug, IMMUNIZATIONS No Known Immunizations SOCIAL HISTORY Never Assessed REASON FOR VISIT EMR-[facility] [place] C[place] V[place] SIGNS MEDICATIONS Unknown [...]
--- OUTSIDE RECORDS SUMMARY | 2019-01-20 14:53 | XMS REPORT ---
Author Author Migration, Doctor Organization [facility] Address Unknown Phone Unavailable Care Team Providers Care Marketing Operations Manager Name Role Phone Migration, Doctor Unavailable Unavailable PROBLEMS Type Condition ICD9-CM Code IWO37-KS Code Onset Dates Condition Status SNOMED Code Problem Corns L84 Active 611139993 Problem Anxiety F41.9 Active 14051244 Problem Flat foot [pes planus] (acquired), right foot M21.41 Active 30162893 Problem Alzheimers disease with early onset G30.0 Active 2617269 Problem Diabetes E11.9 Active 892010052 Problem Moderate episode of recurrent major depressive disorder F33.1 Active 873273509 Problem Uncontrolled type 2 diabetes mellitus without complication, without long- term current use of insulin E11.65 Active 790885382 Problem Major depressive disorder, recurrent, in full remission F33.42 Active 894804427 Problem Type 2 diabetes mellitus with hyperglycemia E11.65 Active 759270528963643 Problem Type 2 diabetes mellitus with unspecified diabetic retinopathy without macular edema E11.319 Active 154098065 Problem Vascular dementia with behavior disturbance F01.51 Active 408839330773845 Problem Arthritis M19.90 Active 6170354 Problem Alzheimer''s disease with early onset G30.0 Active 4817919 Problem Diabetic polyneuropathy associated with type 2 diabetes mellitus E11.42 Active 17707227 Problem Seasonal allergies J30.2 Active 703586898 Problem Dementia in other diseases classified elsewhere with behavioral disturbance F02.81 Active 422485549 Problem Alzheimer''s disease, unspecified G30.9 Active 0877990444044 Problem Dementia with behavioral disturbance, unspecified dementia type F03.91 Active [id number] ALLERGIES No Information ENCOUNTERS Encounter Location Date Diagnosis [facility] [address] [facility] [id number] [address] Sep, [facility] [address] [facility] [id number] [address] Jun, Uncontrolled type 2 diabetes mellitus without complication, without long-term current use of insulin E11.65 ; Alzheimer''s disease with early onset G30.0 and Dementia in other diseases classified elsewhere with behavioral disturbance F02.81 [place] [address] [place] [id number] [place] [address] May, Vascular dementia with behavior disturbance F01.51 [place] [address] [place] [id number] [place] [address] 30 Apr, 2018 Dementia with behavioral disturbance, unspecified dementia type F03.91 [place] [address] [place] [id number] [place] [address] Apr, Diabetic polyneuropathy associated with type 2 diabetes mellitus E11.[address] [address] Mar, Dysfunction of both eustachian tubes H69.[address] [address] Mar, Annual physical exam Z00.00 [place] [id number] [place] [address] Mar, Diabetic polyneuropathy associated with type 2 diabetes mellitus E11.42 ; Pain of left foot M79.672 ; Pain in right foot M79.671 ; Alzheimer''s disease, unspecified G30.9 and Dementia in other diseases classified elsewhere with behavioral disturbance F02.81 [facility] [id number] [place] [address] Nov, Diabetes E11.9 and Seasonal allergies J30.2 [place] [id number] [place] [address] October, Type 2 diabetes mellitus with hyperglycemia E11.65 and Type 2 diabetes mellitus with unspecified diabetic retinopathy without macular edema E11.319 [place] [address] [place] [id number] [place] [address] October, Diabetes E11.9 ; Alzheimers disease with early onset G30.0 ; Arthritis M19.90 ; Diabetic polyneuropathy associated with type 2 diabetes mellitus E11.42 and Major depressive disorder, recurrent, in full remission F33.[address] [address] Sep, [address] [address] Sep, Dysfunction of both eustachian tubes H69.[address] [address] Aug, Alzheimer''s disease with early onset G30.0 ; Dementia in other diseases classified elsewhere with behavioral disturbance F02.81 ; 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 and Type 2 diabetes mellitus with hyperglycemia E11.[address] [address] Jul, [address] [address] Jul, Alzheimer''s disease with early onset G30.0 ; Dementia in other diseases classified elsewhere with behavioral disturbance F02.81 and Uncontrolled type 2 diabetes mellitus without complication, without long-term current use of insulin E11.[address] [address] May, Diabetes type 2, controlled E11.9 ; Bilateral otitis media with effusion H65.93 and Dizziness R42 [facility] [address] [place] [id number] [place] [address] Apr, Dysuria R30.0 and Acute cystitis with hematuria N30.[address] [address] Apr, Moderate episode of recurrent major depressive disorder F33.1 [facility] [address] [address] Mar, Acute cystitis without hematuria N30.[address] [address] Feb, Uncontrolled type 2 diabetes mellitus without complication, without long-term current use of insulin E11.65 ; Other Alzheimer''s disease G30.8 and Dementia in other diseases classified elsewhere without behavioral disturbance F02.80 [place] [address] [address] Jan, Diabetes type 2, controlled E11.9 and Alzheimers disease with early onset G30.0 [facility] [address] [address] Dec, Allergic contact dermatitis due to plants, except food L23.7 [facility] [address] [address] Dec, Dysuria R30.0 and Candidiasis of female genitalia B37.[address] [address] Dec, Diabetes E11.9 and Alzheimers disease with early onset G30.0 [facility] [address] [address] Nov, Acute exacerbation of chronic obstructive pulmonary disease (COPD) J44.1 and Vaginal candidiasis B37.[address] [address] Nov, Controlled type 2 diabetes mellitus without complication, without long-term current use of insulin E11.9 and Other Alzheimers disease G30.8 [place] [id number] [place] [address] October, OME (otitis media with effusion), bilateral H65.93 ; Dizziness R42 and Diabetes E11.9 [facility] [address] [address] Sep, Vertigo R42 ; Heart murmur R01.1 and Dysfunction of inner ear, bilateral H83.[address] [address] Aug, Acute suppurative otitis media of both ears without spontaneous rupture of tympanic membranes, recurrence not specified H66.003 [facility] [address] [place] [id number] [place] [address] Aug, Vaginal irritation N89.8 and Acute exacerbation of chronic obstructive pulmonary disease (COPD) J44.1 [place] [address] [id number] [place] [address] Jul, Dementia in other diseases classified elsewhere without behavioral disturbance F02.80 [place] [address] [id number] [place] [address] Jul, [place] [address] [address] Jun, Diabetes type 2, controlled E11.9 ; Alzheimers disease with early onset G30.0 and Dementia in other diseases classified elsewhere without behavioral disturbance F02.80 [place] [address] [address] May, Diabetes type 2, controlled E11.9 [facility] [address] [place] [id number] [place] [address] May, Vaginal candidiasis B37.3 and Dysuria R30.0 [facility] [place] [id number] [place] [address] 05 May, 2016 Cutaneous abscess of head [any part, except face] L02.811 ; Cellulitis of head [any part, except face] L03.811 ; COPD exacerbation J44.1 and Wheezing R06.2 [place] [address] [place] [id number] [place] [address] Apr, [address] [address] Apr, Diabetes E11.9 ; Acute upper respiratory infection, unspecified J06.9 and Vagina, candidiasis B37.3 [facility] [address] [place] [id number] [place] [address] Mar, Acute exacerbation of chronic obstructive pulmonary disease (COPD) J44.1 [place] [address] [place] [id number] [place] [address] Mar, Diabetes type 2, controlled E11.9 [facility] [address] [address] [id number] [place] [address] Feb, Acute bronchitis, unspecified organism J20.9 [facility] [address] [place] [address] [id number] [place] [address] Feb, Controlled type 2 diabetes mellitus without complication, without long-term current use of insulin E11.9 [place] [address] [place] [id number] [place] [address] Jan, Controlled type 2 diabetes mellitus without complication, without long-term current use of insulin E11.9 and Anxiety F41.9 [place] [address] [place] [id number] [place] [address] Dec, [place] [address] [place] [id number] [place] [address] Nov, Diabetes type 2, controlled E11.9 [place] [address] [place] [id number] [place] [address] Nov, Acute pain of left shoulder M25.512 [facility] [id number] [place] [address] October, Cellulitis of face L03.211 [place] [address] [place] [address] [id number] [place] [address] October, Diabetes type 2, controlled E11.9 [place] [address] [id number] [place] [address] October, Diabetes type 2, controlled E11.9 [place] [address] [place] [id number] [place] [address] Sep, Generalized anxiety disorder F41.1 ; Depression F32.9 and FH: memory loss Z82.0 [place] [address] [address] Sep, FH: memory loss Z82.0 ; Major depression, recurrent F33.9 and Anxiety disorder, unspecified F41.9 [place] [address] [place] [id number] [place] [address] Aug, PTSD (post-traumatic stress disorder) F43.10 ; Generalized anxiety disorder F41.1 and FH: memory loss Z82.0 [place] [address] [place] [id number] [place] [address] Aug, FH: memory loss Z82.0 ; Depression F32.9 and PTSD (post-traumatic stress disorder) F43.10 [place] [address] [place] [id number] [place] [address] Jul, Major depression, recurrent F33.9 ; Generalized anxiety disorder F41.1 and Alzheimer disease G30.9 [place] [address] [place] [id number] [place] [address] Jul, Diabetes E11.9 and Mood disorder F39 [place] [address] [place] [id number] [place] [address] 17 Jul, 2015 Dental examination Z01.20 [place] [address] [place] [id number] [place] [address] Apr, Exertional dyspnea R06.09 and Chronic obstructive pulmonary disease, unspecified COPD type J44.9 [place] [address] [address] Mar, [place] [address] [place] [id number] [place] [address] Mar, Diabetes E11.9 [place] [address] [place] [id number] [place] [address] 05 Mar, 2015 Diabetes E11.9 ; COPD (chronic obstructive pulmonary disease) J44.9 and Hip pain, right M25.551 [place] [address] [address] Dec, [facility] [address] [id number] [place] [address] Nov, COPD exacerbation 491.21 and Wheezing 786.07 [facility] [address] [address] [id number] [place] [address] October, Acute contact dermatitis 692.9 and Anhedonia 780.99 [facility] [address] [place] [address] [id number] [place] [address] October, [facility] [address] [id number] [place] [address] Sep, [facility] [address] [id number] [place] [address] Sep, [facility] [address] [place] [address] [id number] [place] [address] Aug, [facility] [id number] [place] [address] Aug, [facility] [id number] [place] [address] Aug, [facility] [address] [address] Aug, [facility] [address] [address] Jul, [facility] [address] [address] Jul, [facility] [id number] [place] [address] Jul, [facility] [address] [address] Jul, [facility] [address] [address] Jul, [facility] [place] [facility] [address] [id number] [place] [address] Jul, [facility] [place] [facility] [address] [id number] [place] [address] May, [facility] [place] [facility] [address] [id number] [place] [address] May, [facility] [place] [facility] [address] [id number] [place] [address] May, [facility] [place] [facility] [address] [id number] [place] [address] May, [facility] [place] [facility] [address] [id number] [place] [address] May, [facility] [place] [facility] [address] [id number] [place] [address] May, [facility] [place] [facility] [address] [id number] [place] [address] Apr, [facility] [place] [facility] [address] [id number] [place] [address] Apr, [facility] [place] [facility] [address] [id number] [place] [address] Apr, [facility] [place] [facility] [address] [id number] [place] [address] Apr, [facility] [place] [facility] [address] [id number] [address] Mar, [facility] [place] [facility] [address] [id number] [place] [address] Mar, [facility] [place] [facility] [address] [id number], [place] [address] Feb, [facility] [place] [facility] [address] [id number] [place] [address] Feb, [facility] [place] [facility] [address] [id number] [place] [address] Jan, [facility] [place] [facility] [address] [id number] [place] [address] Jan, [facility] [place] [facility] [address] [id number] [place] [address] Dec, [facility] [place] [facility] [address] [id number] [place] [address] Dec, [facility] [place] [facility] [address] [id number] [place] [address] October, [facility] [place] [facility] [address] [id number] [place] [address] October, [facility] [place] [facility] [address] [id number] [place] [address] October, [facility] [place] [facility] [address] [id number] [place] [address] October, [facility] [place] [facility] [address] [id number] [place] [address] October, [facility] [place] [facility] [address] [id number] [place] [address] October, [facility] [place] [facility] [address] [id number] [place] [address] Sep, [facility] [place] [facility] [address] [id number] [place] [address] Sep, [facility] [place] [facility] [address] [id number] [place] [address] Sep, [facility] [place] [facility] [address] [id number] [place] [address] Sep, [facility] [place] [facility] [address] [id number] [place] [address] Sep, [facility] [place] [facility] [address] [id number] [place] [address] Sep, [facility] [place] [facility] [address] [id number] [place] [address] 08 Sep, 2013 [facility] [place] [facility] [address] [id number] [place] [address] 08 Sep, 2013 [facility] [place] [facility] [address] [id number] [place] [address] 26 Aug, 2013 [facility] [place] [facility] [address] [id number] [place] [address] 14 Aug, 2013 [facility] [place] [facility] [address] [id number] [place] [address] 14 Aug, 2013 [facility] [place] [facility] [address] [id number] [place] [address] Aug, [facility] [place] [facility] [address] [id number] [place] [address] Aug, [facility] [place] [facility] [address] [id number] [place] [address] Aug, [facility] [place] [facility] [address] [id number] [place] [address] Jul, [facility] [place] [facility] [address] [id number] [place] [address] Jul, [facility] [place] [facility] [address] [id number] [place] [address] Jul, [facility] [place] [facility] [address] [id number] [place] [address] Jul, [facility] [place] [facility] [address] [id number] [place] [address] May, [facility] [place] [facility] [address] [id number] [place] [address] May, [facility] [place] [facility] [address] [id number] [place] [address] May, [facility] [place] [facility] [address] [id number], [place] [address] May, [facility] [place] [facility] [address] [id number] [place] [address] Apr, [facility] [place] [facility] [address] [id number] [place] [address] Apr, [facility] [place] [facility] [address] [id number] [place] [address] Apr, [facility] [place] [facility] [address] [id number] [place] [address] Apr, [facility] [place] [facility] [address] [id number] [place] [address] Apr, [facility] [place] [facility] [address] [id number] [place] [address] Apr, [facility] [place] [facility] [address] [id number] [place] [address] Apr, [facility] [place] [facility] [address] [id number] [place] [address] Apr, [facility] [place] [facility] [address] [id number] [place] [address] Mar, [facility] [place] [facility] [address] [id number] [place] [address] Dec, [facility] [place] [facility] [address] [id number], [place] [address] Dec, [facility] [place] [facility] [address] [id number], [place] [address] Nov, [facility] [place] [facility] [address] [id number] [place] [address] Nov, [facility] [place] [facility] [address] [id number] [place] [address] Nov, [facility] [place] [facility] [address] [id number] [place] [address] Sep, [facility] [place] [facility] [address] [id number] [place] [address] 26 Aug, 2012 [facility] [place] [facility] [address] [id number] [place] [address] 25 Aug, 2012 [facility] [place] [facility] [address] [id number] [place] [address] 08 Aug, 2012 [facility] [place] [facility] [address] [id number] [place] [address] 07 Aug, 2012 [facility] [place] [facility] [address] [id number] [place] [address] Jul, [facility] [place] [facility] [address] [id number] [place] [address] Jul, [facility] [place] [facility] [address] [id number] [place] [address] May, [facility] [place] [facility] [address] [id number] [place] [address] May, [facility] [place] [facility] [address] [id number] [place] [address] May, [facility] [place] [facility] [address] [id number] [place] [address] Apr, [facility] [place] [facility] [address] [id number] [place] [address] Apr, [facility] [place] [facility] [address] [id number] [place] [address] Apr, [facility] [place] [facility] [address] [id number] [place] [address] Apr, [facility] [place] [facility] [address] [id number] [place] [address] Apr, [facility] [place] [facility] [address] [id number] [place] [address] Apr, [facility] [place] [facility] [address] [id number] [place] [address] Mar, [facility] [place] [facility] [address] [id number] [place] [address] Mar, [facility] [place] [facility] [address] [id number] [place] [address] Mar, [facility] [place] [facility] [address] [id number] [place] [address] 14 Feb, 2012 [facility] [place] [facility] [address] [id number] [place] [address] Feb, [facility] [place] [facility] [address] [id number] [place] [address] Feb, [facility] [place] [facility] [address] [id number] [place] [address] Jan, [facility] [place] [facility] [address] [id number] [place] [address] Jan, [facility] [place] [facility] [address] [id number] [place] [address] Jan, [facility] [place] [facility] [address] [id number] [place] [address] Jan, [facility] [place] [facility] [address] [id number] [place] [address] Dec, [facility] [place] [facility] [address] [id number] [place] [address] Dec, [facility] [place] [facility] [address] [id number] [address] Nov, [facility] [place] [facility] [address] [id number] [place] [address] Nov, [facility] [place] [facility] [address] [id number] [place] [address] October, [facility] [place] [facility] [address] [id number] [place] [address] October, [facility] [place] [facility] [address] [id number] [place] [address] Sep, [facility] [address] [id number] [place] [address] Aug, [facility] [place] [facility] [address] [id number] [place] [address] Aug, [facility] [address] [id number] [place] [address] Jul, [facility] [place] [facility] [address] [id number] [place] [address] Jun, [facility] [address] [id number] [place] [address] Jun, [facility] [place] [facility] [address] [id number] [place] [address] Jun, [facility] [address] [id number] [place] [address] Jun, [facility] [address] [id number] [place] [address] May, [facility] [place] [facility] [address] [id number] [place] [address] May, [facility] [place] [facility] [address] [id number] [place] [address] Mar, [facility] [place] [facility] [address] [id number] [place] [address] Mar, [facility] [place] [facility] [address] [id number] [place] [address] Feb, [facility] [place] [facility] [address] [id number] [place] [address] Dec, [facility] [place] [facility] [address] [id number] [place] [address] 18 Aug, 2010 [facility] [place] [facility] [address] [id number] [place] [address] 16 Aug, 2010 [facility] [address] [facility] [id number] [address] May, [facility] [address] [id number] [address] Jan, [facility] [address] [id number] [address] Apr, [facility] [id number] [address] Apr, [facility] [address] [id number] [address] Jan, [facility] [address] [id number] [id number] Aug, IMMUNIZATIONS No Known Immunizations SOCIAL HISTORY Never Assessed REASON FOR VISIT EMR-[facility] PLAN OF CARE VITAL SIGNS MEDICATIONS Unknown [...]
--- OUTSIDE RECORDS SUMMARY | 2019-01-20 14:54 | XMS REPORT ---
Author Author Migration, Doctor Organization [facility] Address Unknown Phone Unavailable Care Team Providers Care Outreach Professional Name Role Phone Migration, Doctor Unavailable Unavailable PROBLEMS Type Condition ICD9-CM Code ZWM79-FP Code Onset Dates Condition Status SNOMED Code Problem Corns L84 Active 020157576 Problem Anxiety F41.9 Active 50549716 Problem Flat foot [pes planus] (acquired), right foot M21.41 Active 26727903 Problem Alzheimers disease with early onset G30.0 Active 1686110 Problem Diabetes E11.9 Active 176045829 Problem Moderate episode of recurrent major depressive disorder F33.1 Active 243174362 Problem Uncontrolled type 2 diabetes mellitus without complication, without long- term current use of insulin E11.65 Active 422446055 Problem Major depressive disorder, recurrent, in full remission F33.42 Active 826868239 Problem Type 2 diabetes mellitus with hyperglycemia E11.65 Active [id number] Problem Type 2 diabetes mellitus with unspecified diabetic retinopathy without macular edema E11.319 Active 738635329 Problem Vascular dementia with behavior disturbance F01.51 Active 088506492123491 Problem Arthritis M19.90 Active 0037106 Problem Alzheimer''s disease with early onset G30.0 Active 4385510 Problem Diabetic polyneuropathy associated with type 2 diabetes mellitus E11.42 Active 91426967 Problem Seasonal allergies J30.2 Active 534942497 Problem Dementia in other diseases classified elsewhere with behavioral disturbance F02.81 Active 490696512 Problem Alzheimer''s disease, unspecified G30.9 Active 5389768725692 Problem Dementia with behavioral disturbance, unspecified dementia type F03.91 Active [id number] ALLERGIES No Information ENCOUNTERS Encounter Location Date Diagnosis [facility] [address] [facility] [id number] [address] Sep, [facility] [address] [facility] [id number], [place] [address] Jun, Uncontrolled type 2 diabetes mellitus without complication, without long-term current use of insulin E11.65 ; Alzheimer''s disease with early onset G30.0 and Dementia in other diseases classified elsewhere with behavioral disturbance F02.81 [place] [address] [place] [id number] [place] [address] May, Vascular dementia with behavior disturbance F01.51 [place] [address] [id number] [place] [address] 30 Apr, 2018 Dementia with behavioral disturbance, unspecified dementia type F03.91 [place] [address] [id number] [place] [address] Apr, Diabetic polyneuropathy associated with type 2 diabetes mellitus E11.[address] [address] Mar, Dysfunction of both eustachian tubes H69.[address] [address] Mar, Annual physical exam Z00.00 [place] [id number] [place] [address] Mar, Diabetic polyneuropathy associated with type 2 diabetes mellitus E11.42 ; Pain of left foot M79.672 ; Pain in right foot M79.671 ; Alzheimer''s disease, unspecified G30.9 and Dementia in other diseases classified elsewhere with behavioral disturbance F02.81 [facility] [id number] [place] [address] Nov, Diabetes E11.9 and Seasonal allergies J30.2 [place] [id number] [place] [address] October, Type 2 diabetes mellitus with hyperglycemia E11.65 and Type 2 diabetes mellitus with unspecified diabetic retinopathy without macular edema E11.319 [place] [address] [id number] [place] [address] October, Diabetes E11.9 ; Alzheimers disease with early onset G30.0 ; Arthritis M19.90 ; Diabetic polyneuropathy associated with type 2 diabetes mellitus E11.42 and Major depressive disorder, recurrent, in full remission F33.[address] [address] Sep, [address] [address] Sep, Dysfunction of both eustachian tubes H69.[address] [address] Aug, Alzheimer''s disease with early onset G30.0 ; Dementia in other diseases classified elsewhere with behavioral disturbance F02.81 ; 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 and Type 2 diabetes mellitus with hyperglycemia E11.[address] [address] Jul, [address] [address] Jul, Alzheimer''s disease with early onset G30.0 ; Dementia in other diseases classified elsewhere with behavioral disturbance F02.81 and Uncontrolled type 2 diabetes mellitus without complication, without long-term current use of insulin E11.[address] [address] May, Diabetes type 2, controlled E11.9 ; Bilateral otitis media with effusion H65.93 and Dizziness R42 [facility] [address] [place] [id number] [place] [address] Apr, Dysuria R30.0 and Acute cystitis with hematuria N30.[address] [address] Apr, Moderate episode of recurrent major depressive disorder F33.1 [facility] [address] [address] Mar, Acute cystitis without hematuria N30.[address] [address] Feb, Uncontrolled type 2 diabetes mellitus without complication, without long-term current use of insulin E11.65 ; Other Alzheimer''s disease G30.8 and Dementia in other diseases classified elsewhere without behavioral disturbance F02.80 [place] [address] [address] Jan, Diabetes type 2, controlled E11.9 and Alzheimers disease with early onset G30.0 [facility] [address] [address] Dec, Allergic contact dermatitis due to plants, except food L23.7 [facility] [address] [address] Dec, Dysuria R30.0 and Candidiasis of female genitalia B37.[address] [address] Dec, Diabetes E11.9 and Alzheimers disease with early onset G30.0 [facility] [address] [address] Nov, Acute exacerbation of chronic obstructive pulmonary disease (COPD) J44.1 and Vaginal candidiasis B37.[address] [address] Nov, Controlled type 2 diabetes mellitus without complication, without long-term current use of insulin E11.9 and Other Alzheimers disease G30.8 [place] [id number] [place] [address] October, OME (otitis media with effusion), bilateral H65.93 ; Dizziness R42 and Diabetes E11.9 [facility] [address] [address] Sep, Vertigo R42 ; Heart murmur R01.1 and Dysfunction of inner ear, bilateral H83.[address] [address] Aug, Acute suppurative otitis media of both ears without spontaneous rupture of tympanic membranes, recurrence not specified H66.003 [facility] [address] [id number] [place] [address] Aug, Vaginal irritation N89.8 and Acute exacerbation of chronic obstructive pulmonary disease (COPD) J44.1 [place] [address] [place] [id number] [place] [address] Jul, Dementia in other diseases classified elsewhere without behavioral disturbance F02.80 [place] [address] [id number] [place] [address] Jul, [place] [address] [address] Jun, Diabetes type 2, controlled E11.9 ; Alzheimers disease with early onset G30.0 and Dementia in other diseases classified elsewhere without behavioral disturbance F02.80 [place] [address] [address] May, Diabetes type 2, controlled E11.9 [facility] [address] [id number] [place] [address] May, Vaginal candidiasis B37.3 and Dysuria R30.0 [facility] [place] [id number] [place] [address] 05 May, 2016 Cutaneous abscess of head [any part, except face] L02.811 ; Cellulitis of head [any part, except face] L03.811 ; COPD exacerbation J44.1 and Wheezing R06.2 [place] [address] [id number] [place] [address] Apr, [address] [address] Apr, Diabetes E11.9 ; Acute upper respiratory infection, unspecified J06.9 and Vagina, candidiasis B37.3 [facility] [address] [place] [id number] [place] [address] Mar, Acute exacerbation of chronic obstructive pulmonary disease (COPD) J44.1 [place] [address] [id number] [place] [address] Mar, Diabetes type 2, controlled E11.9 [facility] [id number] [place] [address] Feb, Acute bronchitis, unspecified organism J20.9 [facility] [address] [address] [id number] [place] [address] Feb, Controlled type 2 diabetes mellitus without complication, without long-term current use of insulin E11.9 [place] [address] [id number] [place] [address] Jan, Controlled type 2 diabetes mellitus without complication, without long-term current use of insulin E11.9 and Anxiety F41.9 [place] [address] [address] [id number] [place] [address] Dec, [place] [address] [id number] [place] [address] Nov, Diabetes type 2, controlled E11.9 [place] [address] [address] [id number] [place] [address] Nov, Acute pain of left shoulder M25.512 [facility] [address] [id number] [place] [address] October, Cellulitis of face L03.211 [place] [address] [id number] [place] [address] October, Diabetes type 2, controlled E11.9 [place] [address] [address] [id number] [place] [address] October, Diabetes type 2, controlled E11.9 [place] [address] [address] [id number] [place] [address] Sep, Generalized anxiety disorder F41.1 ; Depression F32.9 and FH: memory loss Z82.0 [place] [address], [place] [address] Sep, FH: memory loss Z82.0 ; Major depression, recurrent F33.9 and Anxiety disorder, unspecified F41.9 [place] [address] [id number] [place] [address] Aug, PTSD (post-traumatic stress disorder) F43.10 ; Generalized anxiety disorder F41.1 and FH: memory loss Z82.0 [place] [address] [id number] [place] [address] Aug, FH: memory loss Z82.0 ; Depression F32.9 and PTSD (post-traumatic stress disorder) F43.10 [place] [address] [id number] [place] [address] Jul, Major depression, recurrent F33.9 ; Generalized anxiety disorder F41.1 and Alzheimer disease G30.9 [place] [address] [id number] [place] [address] Jul, Diabetes E11.9 and Mood disorder F39 [place] [address] [id number] [place] [address] 17 Jul, 2015 Dental examination Z01.20 [place] [address] [id number] [place] [address] Apr, Exertional dyspnea R06.09 and Chronic obstructive pulmonary disease, unspecified COPD type J44.9 [place] [address], [place] [address] Mar, [place] [address] [address] [id number] [place] [address] Mar, Diabetes E11.9 [place] [address] [id number] [place] [address] 05 Mar, 2015 Diabetes E11.9 ; COPD (chronic obstructive pulmonary disease) J44.9 and Hip pain, right M25.551 [place] [address], [place] [address] Dec, [facility] [id number] [place] [address] Nov, COPD exacerbation 491.21 and Wheezing 786.07 [facility] [address] [id number] [place] [address] October, Acute contact dermatitis 692.9 and Anhedonia 780.99 [facility] [address] [id number] [place] [address] October, [facility] [id number] [place] [address] Sep, [facility] [id number] [place] [address] Sep, [facility] [id number] [place] [address] Aug, [facility] [id number] [place] [address] Aug, [facility] [id number] [place] [address] Aug, [facility] [address], [place] [address] Aug, [facility] [address], [place] [address] Jul, [facility] [address], [place] [address] Jul, [facility] [address] [place] [address] Jul, [facility] [address], [place] [address] Jul, [facility] [address], [place] [address] Jul, [facility] [place] [facility] [address] [id number] [place] [address] Jul, [facility] [place] [facility] [address] [id number] [place] [address] May, [facility] [place] [facility] [address] [id number] [place] [address] May, [facility] [place] [facility] [address] [id number] [place] [address] May, [facility] [place] [facility] [address] [id number] [place] [address] May, [facility] [place] [facility] [address] [id number] [place] [address] May, [facility] [place] [facility] [address] [id number] [place] [address] May, [facility] [place] [facility] [address] [id number] [place] [address] Apr, [facility] [place] [facility] [address] [id number] [place] [address] Apr, [facility] [place] [facility] [address] [id number] [place] [address] Apr, [facility] [place] [facility] [address] [id number] [place] [address] Apr, [facility] [place] [facility] [address] [id number], [place] [address] Mar, [facility] [place] [facility] [address] [id number] [place] [address] Mar, [facility] [place] [facility] [address] [id number], [place] [address] Feb, [facility] [place] [facility] [address] [id number] [place] [address] Feb, [facility] [place] [facility] [address] [id number] [place] [address] Jan, [facility] [place] [facility] [address] [id number] [place] [address] Jan, [facility] [place] [facility] [address] [id number] [place] [address] Dec, [facility] [place] [facility] [address] [id number] [place] [address] Dec, [facility] [place] [facility] [address] [id number] [place] [address] October, [facility] [place] [facility] [address] [id number] [place] [address] October, [facility] [place] [facility] [address] [id number] [place] [address] October, [facility] [place] [facility] [address] [id number] [place] [address] October, [facility] [place] [facility] [address] [id number] [place] [address] October, [facility] [place] [facility] [address] [id number] [place] [address] October, [facility] [place] [facility] [address] [id number] [place] [address] Sep, [facility] [place] [facility] [address] [id number] [place] [address] Sep, [facility] [place] [facility] [address] [id number] [place] [address] Sep, [facility] [place] [facility] [address] [id number] [place] [address] Sep, [facility] [place] [facility] [address] [id number] [place] [address] Sep, [facility] [place] [facility] [address] [id number] [place] [address] Sep, [facility] [place] [facility] [address] [id number] [place] [address] 08 Sep, 2013 [facility] [place] [facility] [address] [id number] [place] [address] 08 Sep, 2013 [facility] [place] [facility] [address] [id number] [place] [address] 26 Aug, 2013 [facility] [place] [facility] [address] [id number] [place] [address] 14 Aug, 2013 [facility] [place] [facility] [address] [id number] [place] [address] 14 Aug, 2013 [facility] [place] [facility] [address] [id number] [place] [address] Aug, [facility] [place] [facility] [address] [id number] [place] [address] Aug, [facility] [place] [facility] [address] [id number] [place] [address] Aug, [facility] [place] [facility] [address] [id number] [place] [address] Jul, [facility] [place] [facility] [address] [id number] [place] [address] Jul, [facility] [place] [facility] [address] [id number] [place] [address] Jul, [facility] [place] [facility] [address] [id number] [place] [address] Jul, [facility] [place] [facility] [address] [id number] [place] [address] May, [facility] [place] [facility] [address] [id number] [place] [address] May, [facility] [place] [facility] [address] [id number] [place] [address] May, [facility] [place] [facility] [address] [id number], [place] [address] May, [facility] [place] [facility] [address] [id number] [place] [address] Apr, [facility] [place] [facility] [address] [id number] [place] [address] Apr, [facility] [place] [facility] [address] [id number] [place] [address] Apr, [facility] [place] [facility] [address] [id number] [place] [address] Apr, [facility] [place] [facility] [address] [id number] [place] [address] Apr, [facility] [place] [facility] [address] [id number] [place] [address] Apr, [facility] [place] [facility] [address] [id number] [place] [address] Apr, [facility] [place] [facility] [address] [id number] [place] [address] Apr, [facility] [place] [facility] [address] [id number] [place] [address] Mar, [facility] [place] [facility] [address] [id number] [place] [address] Dec, [facility] [place] [facility] [address] [id number], [place] [address] Dec, [facility] [place] [facility] [address] [id number], [place] [address] Nov, [facility] [place] [facility] [address] [id number] [place] [address] Nov, [facility] [place] [facility] [address] [id number] [place] [address] Nov, [facility] [place] [facility] [address] [id number] [place] [address] Sep, [facility] [place] [facility] [address] [id number] [place] [address] 26 Aug, 2012 [facility] [place] [facility] [address] [id number] [place] [address] 25 Aug, 2012 [facility] [place] [facility] [address] [id number] [place] [address] 08 Aug, 2012 [facility] [place] [facility] [address] [id number] [place] [address] 07 Aug, 2012 [facility] [place] [facility] [address] [id number] [place] [address] Jul, [facility] [place] [facility] [address] [id number] [place] [address] Jul, [facility] [place] [facility] [address] [id number] [place] [address] May, [facility] [place] [facility] [address] [id number] [place] [address] May, [facility] [place] [facility] [address] [id number] [place] [address] May, [facility] [place] [facility] [address] [id number] [place] [address] Apr, [facility] [place] [facility] [address] [id number] [place] [address] Apr, [facility] [place] [facility] [address] [id number] [place] [address] Apr, [facility] [place] [facility] [address] [id number] [place] [address] Apr, [facility] [place] [facility] [address] [id number] [place] [address] Apr, [facility] [place] [facility] [address] [id number] [place] [address] Apr, [facility] [place] [facility] [address] [id number] [place] [address] Mar, [facility] [place] [facility] [address] [id number] [place] [address] Mar, [facility] [place] [facility] [address] [id number] [place] [address] Mar, [facility] [place] [facility] [address] [id number] [place] [address] 14 Feb, 2012 [facility] [place] [facility] [address] [id number] [place] [address] Feb, [facility] [place] [facility] [address] [id number] [place] [address] Feb, [facility] [place] [facility] [address] [id number] [place] [address] Jan, [facility] [place] [facility] [address] [id number] [place] [address] Jan, [facility] [place] [facility] [address] [id number] [place] [address] Jan, [facility] [place] [facility] [address] [id number] [place] [address] Jan, [facility] [place] [facility] [address] [id number] [place] [address] Dec, [facility] [place] [facility] [address] [id number] [place] [address] Dec, [facility] [place] [facility] [address] [id number], [place] [address] Nov, [facility] [place] [facility] [address] [id number] [place] [address] Nov, [facility] [place] [facility] [address] [id number] [place] [address] October, [facility] [place] [facility] [address] [id number] [place] [address] October, [facility] [place] [facility] [address] [id number] [place] [address] Sep, [facility] [address] [id number] [place] [address] Aug, [facility] [place] [facility] [address] [id number] [place] [address] Aug, [facility] [address] [id number] [place] [address] Jul, [facility] [place] [facility] [address] [id number] [place] [address] Jun, [facility] [address] [id number] [place] [address] Jun, [facility] [place] [facility] [address] [id number] [place] [address] Jun, [facility] [address] [id number] [place] [address] Jun, [facility] [address] [id number] [place] [address] May, [facility] [place] [facility] [address] [id number] [place] [address] May, [facility] [place] [facility] [address] [id number] [place] [address] Mar, [facility] [place] [facility] [address] [id number] [place] [address] Mar, [facility] [place] [facility] [address] [id number] [place] [address] Feb, [facility] [place] [facility] [address] [id number] [place] [address] Dec, [facility] [place] [facility] [address] [id number] [place] [address] 18 Aug, 2010 [facility] [place] [facility] [address] [id number] [place] [address] 16 Aug, 2010 [facility] [address] [facility] [id number], [place] [address] May, [facility] [address] [id number], [place] [address] Jan, [facility] [facility] [address] [id number], [place] [address] Apr, [facility] [id number], [place] [address] Apr, [facility] [address] [id number] [address] Jan, [facility] [address] [id number], [place] [address] Aug, IMMUNIZATIONS No Known Immunizations SOCIAL HISTORY Never Assessed REASON FOR VISIT EMR[place] [place] OF CARE VITAL SIGNS MEDICATIONS Unknown [...]
--- OUTSIDE RECORDS SUMMARY | 2019-01-20 14:55 | XMS REPORT ---
Author Author HERMILO VERDUGO Organization [facility] Address [address] [place] [address] Care Team Providers Care Figure Model Name Role Phone KARTIK HERMILO Unavailable PROBLEMS Type Condition ICD9-CM Code NGO46-QX Code Onset Dates Condition Status SNOMED Code Problem Moderate episode of recurrent major depressive disorder F33.1 Active 327543321 Problem Arthritis M19.90 Active 9595032 Problem Diabetic polyneuropathy associated with type 2 diabetes mellitus E11.42 Active 74243569 Problem Dementia in other diseases classified elsewhere with behavioral disturbance F02.81 Active 492384161 Problem Alzheimer''s disease, unspecified G30.9 Active 9512450704664 Problem Type 2 diabetes mellitus with hyperglycemia E11.65 Active 645337574453013 Problem Major depressive disorder, recurrent, in full remission F33.42 Active 736369297 Problem Seasonal allergies J30.2 Active 326839766 Problem Type 2 diabetes mellitus with unspecified diabetic retinopathy without macular edema E11.319 Active 413158048 Problem Anxiety F41.9 Active 97076996 Problem Diabetes E11.9 Active 209751315 Problem Corns L84 Active 354030959 Problem Alzheimers disease with early onset G30.0 Active 3816866 Problem Flat foot [pes planus] (acquired), right foot M21.41 Active 67293375 Problem Uncontrolled type 2 diabetes mellitus without complication, without long- term current use of insulin E11.65 Active 207680510 ALLERGIES No Information ENCOUNTERS Encounter Location Date Diagnosis [facility] [address] [facility] [id number], [place] [address] Apr, [facility] [address] [id number], [place] [address] 14 Apr, 2018 Diabetic polyneuropathy associated with type 2 diabetes mellitus E11.42 [facility] [address] [facility] [id number], [place] [address] 31 Mar, 2018 Dysfunction of both eustachian tubes H69.83 [place] [address] [address] Mar, Annual physical exam Z00.00 [place] [address] [place] [id number] [place] [address] Mar, Diabetic polyneuropathy associated with type 2 diabetes mellitus E11.42 ; Pain of left foot M79.672 ; Pain in right foot M79.671 ; Alzheimer''s disease, unspecified G30.9 and Dementia in other diseases classified elsewhere with behavioral disturbance F02.81 [facility]ALK IN [facility] [id number] [place] [address] Nov, Diabetes E11.9 and Seasonal allergies J30.2 [place] [id number] [place] [address] October, Type 2 diabetes mellitus with hyperglycemia E11.65 and Type 2 diabetes mellitus with unspecified diabetic retinopathy without macular edema E11.319 [place] [id number] [place] [address] October, Diabetes E11.9 ; Alzheimers disease with early onset G30.0 ; Arthritis M19.90 ; Diabetic polyneuropathy associated with type 2 diabetes mellitus E11.42 and Major depressive disorder, recurrent, in full remission F33.42 [place] [id number] [place] [address] Sep, [place] [id number] [place] [address] Sep, Dysfunction of both eustachian tubes H69.83 [place] [id number] [place] [address] Aug, Alzheimer''s disease with early onset G30.0 ; Dementia in other diseases classified elsewhere with behavioral disturbance F02.81 ; 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 and Type 2 diabetes mellitus with hyperglycemia E11.65 [place] [id number] [place] [address] Jul, [id number] [place] [address] Jul, Alzheimer''s disease with early onset G30.0 ; Dementia in other diseases classified elsewhere with behavioral disturbance F02.81 and Uncontrolled type 2 diabetes mellitus without complication, without long-term current use of insulin E11.[address] [address] May, Diabetes type 2, controlled E11.9 ; Bilateral otitis media with effusion H65.93 and Dizziness R42 [facility] WALK IN [address] [address] 17 Apr, 2017 Dysuria R30.0 and Acute cystitis with hematuria N30.[address] [address] Apr, Moderate episode of recurrent major depressive disorder F33.1 [facility]ALK [place] [id number] [place] [address] Mar, Acute cystitis without hematuria N30.[address] [address] 28 Feb, 2017 Uncontrolled type 2 diabetes mellitus without complication, without long-term current use of insulin E11.65 ; Other Alzheimer''s disease G30.8 and Dementia in other diseases classified elsewhere without behavioral disturbance F02.80 [place] [id number] [place] [address] Jan, Diabetes type 2, controlled E11.9 and Alzheimers disease with early onset G30.0 [facility] WALK IN [address] [address] Dec, Allergic contact dermatitis due to plants, except food L23.7 [facility]ALK IN [place] [id number] [place] [address] Dec, Dysuria R30.0 and Candidiasis of female genitalia B37.3 [place] [id number] [place] [address] 14 Dec, 2016 Diabetes E11.9 and Alzheimers disease with early onset G30.0 [facility] IN [place] [id number] [place] [address] Nov, Acute exacerbation of chronic obstructive pulmonary disease (COPD) J44.1 and Vaginal candidiasis B37.3 [place] [address] [address] 15 Nov, 2016 Controlled type 2 diabetes mellitus without complication, without long-term current use of insulin E11.9 and Other Alzheimers disease G30.[address] [address] October, OME (otitis media with effusion), bilateral H65.93 ; Dizziness R42 and Diabetes E11.9 [facility] IN [place] [address] [address] Sep, Vertigo R42 ; Heart murmur R01.1 and Dysfunction of inner ear, bilateral H83.[address] [address] Aug, Acute suppurative otitis media of both ears without spontaneous rupture of tympanic membranes, recurrence not specified H66.003 [facility] IN [place] [id number] [place] [address] Aug, Vaginal irritation N89.8 and Acute exacerbation of chronic obstructive pulmonary disease (COPD) J44.1 [place] [address] [address] [id number] [place] [address] Jul, Dementia in other diseases classified elsewhere without behavioral disturbance F02.80 [place] [address] [address] Jul, [place] [address] [address] Jun, Diabetes type 2, controlled E11.9 ; Alzheimers disease with early onset G30.0 and Dementia in other diseases classified elsewhere without behavioral disturbance F02.[address] [address] May, Diabetes type 2, controlled E11.9 [facility] WALK IN [address] [address] May, Vaginal candidiasis B37.3 and Dysuria R30.0 [facility] WALK IN [address] [address] 05 May, 2016 Cutaneous abscess of head [any part, except face] L02.811 ; Cellulitis of head [any part, except face] L03.811 ; COPD exacerbation J44.1 and Wheezing R06.[address] [address] Apr, [address] [address] Apr, Diabetes E11.9 ; Acute upper respiratory infection, unspecified J06.9 and Vagina, candidiasis B37.3 [facility] WALK IN [address] [address] Mar, Acute exacerbation of chronic obstructive pulmonary disease (COPD) J44.[address] [address] Mar, Diabetes type 2, controlled E11.9 [facility] WALK IN [address] [address] Feb, Acute bronchitis, unspecified organism J20.[address] [address] Feb, Controlled type 2 diabetes mellitus without complication, without long-term current use of insulin E11.[address] [address] Jan, Controlled type 2 diabetes mellitus without complication, without long-term current use of insulin E11.9 and Anxiety F41.9 [facility] [address] [address] Dec, [facility] [id number] [place] [address] Nov, Diabetes type 2, controlled E11.9 [facility] [address] [id number] [place] [address] Nov, Acute pain of left shoulder M25.512 [facility] WALK IN [facility] [address] [place] [address] October, Cellulitis of face L03.211 [facility] [id number] [place] [address] October, Diabetes type 2, controlled E11.9 [facility] [id number] [place] [address] October, Diabetes type 2, controlled E11.9 [facility] [address] [place] [address] Sep, Generalized anxiety disorder F41.1 ; Depression F32.9 and FH: memory loss Z82.0 [facility] [address] [place] [address] Sep, FH: memory loss Z82.0 ; Major depression, recurrent F33.9 and Anxiety disorder, unspecified F41.9 [facility] [address] [address] Aug, PTSD (post-traumatic stress disorder) F43.10 ; Generalized anxiety disorder F41.1 and FH: memory loss Z82.0 [facility] [id number] [place] [address] Aug, FH: memory loss Z82.0 ; Depression F32.9 and PTSD (post-traumatic stress disorder) F43.10 [place] [address] [address] Jul, Major depression, recurrent F33.9 ; Generalized anxiety disorder F41.1 and Alzheimer disease G30.[address] [address] Jul, Diabetes E11.9 and Mood disorder F39 [address] [address] 17 Jul, 2015 Dental examination Z01.[address] [address] Apr, Exertional dyspnea R06.09 and Chronic obstructive pulmonary disease, unspecified COPD type J44.[address] [address] Mar, [address] [address] Mar, Diabetes E11.[address] [address] Mar, Diabetes E11.9 ; COPD (chronic obstructive pulmonary disease) J44.9 and Hip pain, right M25.551 [place] [id number] [place] [address] Dec, [address] [address] Nov, COPD exacerbation 491.21 and Wheezing 786.[address] [address] October, Acute contact dermatitis 692.9 and Anhedonia 780.[address] [address] October, [place] [address] [address] Sep, [address] [place] [address] 13 Sep, 2014 [facility] [place] [facility] [address] [id number] [place] [address] 30 Aug, 2014 [facility] [place] [facility] [address] [id number] [place] [address] 30 Aug, 2014 [facility] [place] [facility] [address] [facility] [place] [facility] [id number] [place] [address] Aug, 2014 [facility] [place] [facility] [address] [id number] [place] [address] Aug, 2014 [facility] [place] [facility] [address] [id number] [place] [address] Jul, 2014 [facility] [place] [facility] [address] [id number] [place] [address] Jul, 2014 [facility] [place] [facility] [address] [facility] [place] [id number] [place] [address] Jul, 2014 [facility] [place] [facility] [address] [facility] [place] [id number] [place] [address] Jul, 2014 [facility] [place] [facility] [address] [facility] [place] [id number] [place] [address] Jul, 2014 [facility] [place] [facility] [address] [facility] [place] [place] [id number] [place] [address] Jul, 2014 [facility] [place] [facility] [address] [facility] [place] [id number] [place] [address] May, [facility] [place] [facility] [address] [id number] [place] [address] May, [facility] [place] [facility] [address] [id number] [place] [address] May, [facility] [place] [facility] [address] [facility] [place] [id number] [place] [address] May, [facility] [place] [facility] [address] [facility] [place] [id number] [place] [address] May, [facility] [place] [facility] [address] [id number] [place] [address] May, [facility] [place] [facility] [address] [id number] [place] [address] Apr, [facility] [place] [facility] [address] [id number] [place] [address] Apr, [facility] [place] [facility] [address] [id number] [place] [address] Apr, [facility] [place] [facility] [address] [id number] [place] [address] Apr, [facility] [place] [facility] [address] [id number] [place] [address] Mar, [facility] [place] [facility] [address] [id number] [place] [address] Mar, [facility] [place] [facility] [address] [id number] [place] [address] Feb, [facility] [place] [facility] [address] [id number] [place] [address] Feb, [facility] [place] [facility] [address] [id number] [place] [address] Jan, [facility] [place] [facility] [address] [id number] [place] [address] Jan, [facility] [place] [facility] [address] [id number], [place] [address] Dec, [facility] [place] [facility] [address] [id number] [place] [address] Dec, [facility] [place] [facility] [address] [id number] [place] [address] October, [facility] [place] [facility] [address] [id number] [place] [address] October, [facility] [place] [facility] [address] [id number], [place] [address] October, [facility] [place] [facility] [address] [id number] [place] [address] October, [facility] [place] [facility] [address] [id number] [place] [address] October, [facility] [place] [facility] [address] [id number] [place] [address] October, [facility] [place] [facility] [address] [id number] [place] [address] Sep, [facility] [place] [facility] [address] [id number] [place] [address] Sep, [facility] [place] [facility] [address] [id number] [place] [address] Sep, [facility] [place] [facility] [address] [id number] [place] [address] Sep, [facility] [place] [facility] [address] [id number] [place] [address] Sep, [facility] [place] [facility] [address] [id number] [place] [address] Sep, [facility] [place] [facility] [address] [id number] [place] [address] Sep, [facility] [place] [facility] [address] [id number] [place] [address] Sep, [facility] [place] [facility] [address] [id number] [place] [address] 26 Aug, 2013 [facility] [place] [facility] [address] [id number] [place] [address] 14 Aug, 2013 [facility] [place] [facility] [address] [id number] [place] [address] 14 Aug, 2013 [facility] [place] [facility] [address] [id number] [place] [address] 13 Aug, 2013 [facility] [place] [facility] [address] [id number] [place] [address] Aug, [facility] [place] [facility] [address] [id number] [place] [address] Aug, [facility] [place] [facility] [address] [id number] [place] [address] Jul, 2013 [facility] [place] [facility] [address] [id number] [place] [address] Jul, [facility] [place] [facility] [address] [id number] [place] [address] Jul, [facility] [place] [facility] [address] [id number] [place] [address] Jul, [facility] [place] [facility] [address] [facility] [place] [id number] [place] [address] May, [facility] [place] [facility] [address] [id number] [place] [address] May, [facility] [place] [facility] [address] [id number] [place] [address] May, [facility] [place] [facility] [address] [facility] [place] [id number] [place] [address] May, [facility] [place] [facility] [address] [facility] [place] [id number] [place] [address] Apr, [facility] [place] [facility] [address] [id number] [place] [address] Apr, [facility] [place] [facility] [address] [id number] [place] [address] Apr, [facility] [place] [facility] [address] [id number] [place] [address] Apr, [facility] [place] [facility] [address] [id number] [place] [address] Apr, [facility] [place] [facility] [address] [id number] [place] [address] Apr, [facility] [place] [facility] [address] [id number] [place] [address] Apr, [facility] [place] [facility] [address] [id number] [place] [address] Apr, [facility] [place] [facility] [address] [id number] [place] [address] Mar, [facility] [place] [facility] [address] [id number] [place] [address] Dec, [facility] [place] [facility] [address] [id number] [place] [address] Dec, [facility] [place] [facility] [address] [id number] [place] [address] Nov, [facility] [place] [facility] [address] [id number] [place] [address] Nov, [facility] [place] [facility] [address] [id number] [place] [address] Nov, [facility] [place] [facility] [address] [id number] [place] [address] Sep, [facility] [place] [facility] [address] [id number] [place] [address] Aug, [facility] [place] [facility] [address] [id number] [place] [address] Aug, [facility] [place] [facility] [address] [id number] [place] [address] Aug, [facility] [place] [facility] [address] [id number] [place] [address] Aug, [facility] [place] [facility] [address] [id number] [place] [address] Jul, [facility] [place] [facility] [address] [id number] [place] [address] 07 Jul, 2012 [facility] [place] [facility] [address] [id number] [place] [address] May, [facility] [place] [facility] [address] [id number] [place] [address] May, [facility] [place] [facility] [address] [id number] [place] [address] May, [facility] [place] [facility] [address] [id number] [place] [address] Apr, [facility] [place] [facility] [address] [id number] [place] [address] Apr, [facility] [place] [facility] [address] [id number] [place] [address] Apr, [facility] [place] [facility] [address] [id number] [place] [address] Apr, [facility] [place] [facility] [address] [id number] [place] [address] Apr, [facility] [place] [facility] [address] [id number] [place] [address] Apr, [facility] [place] [facility] [address] [id number] [place] [address] Mar, [facility] [place] [facility] [address] [id number] [place] [address] Mar, [facility] [place] [facility] [address] [id number] [place] [address] Mar, [facility] [place] [facility] [address] [id number] [place] [address] 14 Feb, 2012 [facility] [place] [facility] [address] [id number] [place] [address] Feb, [facility] [place] [facility] [address] [id number] [place] [address] Feb, [facility] [place] [facility] [address] [id number] [place] [address] Jan, [facility] [place] [facility] [address] [id number] [place] [address] Jan, [facility] [place] [facility] [address] [id number] [place] [address] Jan, [facility] [place] [facility] [address] [id number] [place] [address] Jan, [facility] [place] [facility] [address] [id number] [place] [address] Dec, [facility] [place] [facility] [address] [id number] [place] [address] Dec, [facility] [place] [facility] [address] [id number] [place] [address] Nov, [facility] [place] [facility] [address] [id number] [place] [address] Nov, [facility] [place] [facility] [address] [id number] [place] [address] October, [facility] [place] [facility] [address] [id number] [place] [address] October, [facility] [place] [facility] [address] [id number] [place] [address] Sep, [facility] [place] [facility] [address] [id number] [place] [address] Aug, [facility] [place] [facility] [address] [id number] [place] [address] Aug, [facility] [place] [facility] [address] [id number] [place] [address] Jul, [facility] [place] [facility] [address] [id number] [place] [address] Jun, [facility] [place] [facility] [address] [id number] [place] [address] Jun, [facility] [place] [facility] [address] [facility] [place] [id number] [place] [address] 12 Jun, 2011 [facility] [address] [id number] [place] [address] Jun, [facility] [address] [facility] [place] [id number] [place] [address] May, [facility] [address] [facility] [place] [id number] [place] [address] May, [facility] [address] [id number] [place] [address] Mar, [facility] [address] [facility] [place] [id number] [place] [address] Mar, [facility] [address] [facility] [place] [id number] [place] [address] Feb, [facility] [address] [facility] [place] [id number] [place] [address] Dec, [facility] [address] [facility] [place] [id number] [place] [address] Aug, [facility] [address] [facility] [place] [id number] [place] [address] Aug, [facility] [address] [facility] [place] [id number] [place] [address] May, [facility] [address] [facility] [place] [id number] [place] [address] Jan, [facility] [address] [facility] [place] [id number], [place] [address] Apr, [facility] [address] [facility] [place] [id number], [place] [address] Apr, [facility] [address] [facility] [place] [id number] [place] [address] Jan, [facility] [address] [facility] [place] [id number], [place] [address] Aug, IMMUNIZATIONS No Known Immunizations SOCIAL HISTORY Never Assessed REASON FOR VISIT Refill request PLAN OF CARE VITAL SIGNS MEDICATIONS Medication Instructions Dosage Frequency Start Date End Date Duration Status GlipiZIDE 10 mg Orally Once a day 1 tablet 24h October, 90 days Active RESULTS No Results PROCEDURES No [id number] [phone]
--- OUTSIDE RECORDS SUMMARY | 2019-01-20 14:55 | XMS REPORT ---
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 Vertical Name Role Phone KARTIK HERMILO Unavailable PROBLEMS Type Condition ICD9-CM Code PRK14-LV Code Onset Dates Condition Status SNOMED Code Problem Diabetic polyneuropathy associated with type 2 diabetes mellitus E11.42 Active 64419977 Problem Major depressive disorder, recurrent, in full remission F33.42 Active 657293768 Problem Arthritis M19.90 Active 1376226 Problem Dementia with behavioral disturbance, unspecified dementia type F03.91 Active 7215754741215 Problem Alzheimer''s disease, unspecified G30.9 Active 3167501067568 Problem Type 2 diabetes mellitus with unspecified diabetic retinopathy without macular edema E11.319 Active 191050086 Problem Type 2 diabetes mellitus with hyperglycemia E11.65 Active 849842405058756 Problem Dementia in other diseases classified elsewhere with behavioral disturbance F02.81 Active 682616692 Problem Seasonal allergies J30.2 Active 805260329 Problem Corns L84 Active 701064423 Problem Diabetes E11.9 Active 294546484 Problem Alzheimers disease with early onset G30.0 Active 7459492 Problem Flat foot [pes planus] (acquired), right foot M21.41 Active 27653379 Problem Uncontrolled type 2 diabetes mellitus without complication, without long- term current use of insulin E11.65 Active 591357827 Problem Anxiety F41.9 Active 13551804 Problem Moderate episode of recurrent major depressive disorder F33.1 Active 465705846 ALLERGIES Substance Reaction Event Type Date Status SulfADIAZINE shortness of breath Drug Allergy Apr, Active Lisinopril hypotension Drug Allergy Apr, Active Cozaar hypotension Drug Allergy Apr, Active Aspirin Unknown Drug Allergy Apr, Active ENCOUNTERS Encounter Location Date Diagnosis [facility] [address] [facility] [id number] [address] May, [facility] [address] [place] [id number] [place] [address] Apr, Dementia with behavioral disturbance, unspecified dementia type F03.91 [place] [address] [address] [id number] [place] [address] Apr, Diabetic polyneuropathy associated with type 2 diabetes mellitus E11.42 [place] [address] [address] [id number] [place] [address] Mar, Dysfunction of both eustachian tubes H69.83 [place] [address] [id number] [place] [address] Mar, Annual physical exam Z00.00 [place] [id number] [place] [address] Mar, Diabetic polyneuropathy associated with type 2 diabetes mellitus E11.42 ; Pain of left foot M79.672 ; Pain in right foot M79.671 ; Alzheimer''s disease, unspecified G30.9 and Dementia in other diseases classified elsewhere with behavioral disturbance F02.81 [facility] [id number] [place] [address] Nov, Diabetes E11.9 and Seasonal allergies J30.2 [place] [id number] [place] [address] October, Type 2 diabetes mellitus with hyperglycemia E11.65 and Type 2 diabetes mellitus with unspecified diabetic retinopathy without macular edema E11.319 [place] [address] [id number] [place] [address] October, Diabetes E11.9 ; Alzheimers disease with early onset G30.0 ; Arthritis M19.90 ; Diabetic polyneuropathy associated with type 2 diabetes mellitus E11.42 and Major depressive disorder, recurrent, in full remission F33.42 [place] [address] [address] [id number] [place] [address] Sep, [place] [address] [place] [id number] [place] [address] Sep, Dysfunction of both eustachian tubes H69.83 [place] [address] [place] [id number] [place] [address] Aug, Alzheimer''s disease with early onset G30.0 ; Dementia in other diseases classified elsewhere with behavioral disturbance F02.81 ; 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 and Type 2 diabetes mellitus with hyperglycemia E11.65 [place] [address] [address] Jul, [place] [address] [address] Jul, Alzheimer''s disease with early onset G30.0 ; Dementia in other diseases classified elsewhere with behavioral disturbance F02.81 and Uncontrolled type 2 diabetes mellitus without complication, without long-term current use of insulin E11.65 [place] [address] [id number] [place] [address] May, Diabetes type 2, controlled E11.9 ; Bilateral otitis media with effusion H65.93 and Dizziness R42 [facility] [address] [address] [id number] [place] [address] Apr, Dysuria R30.0 and Acute cystitis with hematuria N30.01 [place] [address] [id number] [place] [address] 02 Apr, 2017 Moderate episode of recurrent major depressive disorder F33.1 [facility] [id number] [place] [address] 18 Mar, 2017 Acute cystitis without hematuria N30.00 [place] [address] [place] [id number] [place] [address] Feb, Uncontrolled type 2 diabetes mellitus without complication, without long-term current use of insulin E11.65 ; Other Alzheimer''s disease G30.8 and Dementia in other diseases classified elsewhere without behavioral disturbance F02.80 [place] [address] [id number] [place] [address] Jan, Diabetes type 2, controlled E11.9 and Alzheimers disease with early onset G30.0 [facility] [address] [address] Dec, Allergic contact dermatitis due to plants, except food L23.7 [facility] [address] [address] Dec, Dysuria R30.0 and Candidiasis of female genitalia B37.3 [place] [address] [address] Dec, Diabetes E11.9 and Alzheimers disease with early onset G30.0 [facility] [place] [address] [address] Nov, Acute exacerbation of chronic obstructive pulmonary disease (COPD) J44.1 and Vaginal candidiasis B37.3 [place] [address] [address] Nov, Controlled type 2 diabetes mellitus without complication, without long-term current use of insulin E11.9 and Other Alzheimers disease G30.8 [place] [address] [address] October, OME (otitis media with effusion), bilateral H65.93 ; Dizziness R42 and Diabetes E11.9 [facility] [place] [address] [address] Sep, Vertigo R42 ; Heart murmur R01.1 and Dysfunction of inner ear, bilateral H83.93 [place] [address] [address] Aug, Acute suppurative otitis media of both ears without spontaneous rupture of tympanic membranes, recurrence not specified H66.003 [facility] [place] [address] [address] Aug, Vaginal irritation N89.8 and Acute exacerbation of chronic obstructive pulmonary disease (COPD) J44.1 [place] [address] [address] Jul, Dementia in other diseases classified elsewhere without behavioral disturbance F02.80 [place] [address] [address] [id number] [place] [address] Jul, [place] [address] [address] [id number] [place] [address] Jun, Diabetes type 2, controlled E11.9 ; Alzheimers disease with early onset G30.0 and Dementia in other diseases classified elsewhere without behavioral disturbance F02.80 [place] [address] [address] [id number] [place] [address] May, Diabetes type 2, controlled E11.9 [facility] [place] [id number] [place] [address] May, Vaginal candidiasis B37.3 and Dysuria R30.0 [facility] [place] [id number] [place] [address] 05 May, 2016 Cutaneous abscess of head [any part, except face] L02.811 ; Cellulitis of head [any part, except face] L03.811 ; COPD exacerbation J44.1 and Wheezing R06.2 [place] [id number] [place] [address] Apr, [place] [id number] [place] [address] Apr, Diabetes E11.9 ; Acute upper respiratory infection, unspecified J06.9 and Vagina, candidiasis B37.3 [facility] [place] [id number] [place] [address] Mar, Acute exacerbation of chronic obstructive pulmonary disease (COPD) J44.1 [place] [id number] [place] [address] Mar, Diabetes type 2, controlled E11.9 [facility] [address] [address] Feb, Acute bronchitis, unspecified organism J20.9 [facility] [id number] [place] [address] Feb, Controlled type 2 diabetes mellitus without complication, without long-term current use of insulin E11.9 [facility] [id number] [place] [address] Jan, Controlled type 2 diabetes mellitus without complication, without long-term current use of insulin E11.9 and Anxiety F41.9 [place] [address] [address] [id number] [place] [address] Dec, [place] [address] [place] [id number] [place] [address] Nov, Diabetes type 2, controlled E11.9 [place] [address] [id number] [place] [address] Nov, Acute pain of left shoulder M25.512 [facility] [id number] [place] [address] October, Cellulitis of face L03.211 [place] [address] [address] [id number] [place] [address] October, Diabetes type 2, controlled E11.9 [facility] [id number] [place] [address] October, Diabetes type 2, controlled E11.9 [place] [address] [place] [address] Sep, Generalized anxiety disorder F41.1 ; Depression F32.9 and FH: memory loss Z82.0 [place] [address] [place] [address] Sep, FH: memory loss Z82.0 ; Major depression, recurrent F33.9 and Anxiety disorder, unspecified F41.9 [place] [address] [place] [id number] [place] [address] Aug, PTSD (post-traumatic stress disorder) F43.10 ; Generalized anxiety disorder F41.1 and FH: memory loss Z82.0 [place] [id number] [place] [address] Aug, FH: memory loss Z82.0 ; Depression F32.9 and PTSD (post-traumatic stress disorder) F43.[address] [address] Jul, Major depression, recurrent F33.9 ; Generalized anxiety disorder F41.1 and Alzheimer disease G30.[address] [address] Jul, Diabetes E11.9 and Mood disorder F39 [address] [address] Jul, Dental examination Z01.[address] [address] Apr, Exertional dyspnea R06.09 and Chronic obstructive pulmonary disease, unspecified COPD type J44.9 [place] [id number] [place] [address] Mar, [place] [id number] [place] [address] Mar, Diabetes E11.[address] [address] Mar, Diabetes E11.9 ; COPD (chronic obstructive pulmonary disease) J44.9 and Hip pain, right M25.[address] [address] Dec, [place] [id number] [place] [address] Nov, COPD exacerbation 491.21 and Wheezing 786.07 [place] [address] [address] October, Acute contact dermatitis 692.9 and Anhedonia 780.99 [facility] [address], [place] [address] October, [facility] [address], [place] [address] Sep, [facility] [address], [place] [address] Sep, [facility] [address] [place] [address] Aug, [facility] [address], [place] [address] Aug, [facility] [address], [place] [address] Aug, [facility] [address], [place] [address] Aug, [facility] [address], [place] [address] Jul, [facility] [address], [place] [address] Jul, [facility] [address], [place] [address] Jul, [facility] [address], [place] [address] Jul, [facility] [address] [place] [address] [id number] [address] Jul, [facility] [address] [place] [address] [id number] [address] Jul, [facility] [address] [place] [address] [id number] [address] May, [facility] [address] [place] [address] May, [facility] [place] [facility] [address] [id number] [place] [address] May, [facility] [place] [facility] [address] [id number] [place] [address] May, [facility] [place] [facility] [address] [id number] [place] [address] May, [facility] [place] [facility] [address] [id number] [place] [address] May, [facility] [place] [facility] [address] [id number] [place] [address] Apr, [facility] [place] [facility] [address] [id number] [place] [address] Apr, [facility] [place] [facility] [address] [id number] [place] [address] Apr, [facility] [place] [facility] [address] [id number] [place] [address] Apr, [facility] [place] [facility] [address] [id number] [place] [address] Mar, [facility] [place] [facility] [address] [id number] [place] [address] Mar, [facility] [place] [facility] [address] [id number] [place] [address] Feb, [facility] [place] [facility] [address] [id number] [place] [address] Feb, [facility] [place] [facility] [address] [id number] [place] [address] Jan, [facility] [place] [facility] [address] [id number] [place] [address] Jan, [facility] [place] [facility] [address] [id number] [place] [address] Dec, [facility] [place] [facility] [address] [id number] [place] [address] Dec, [facility] [place] [facility] [address] [id number] [place] [address] October, [facility] [place] [facility] [address] [id number] [place] [address] October, [facility] [place] [facility] [address] [id number] [place] [address] October, [facility] [place] [facility] [address] [id number] [place] [address] October, [facility] [place] [facility] [address] [id number] [place] [address] October, [facility] [place] [facility] [address] [id number] [place] [address] October, [facility] [place] [facility] [address] [id number] [place] [address] Sep, [facility] [place] [facility] [address] [id number] [place] [address] Sep, [facility] [place] [facility] [address] [id number] [place] [address] Sep, [facility] [place] [facility] [address] [id number] [place] [address] Sep, [facility] [place] [facility] [address] [id number] [place] [address] Sep, [facility] [place] [facility] [address] [id number] [place] [address] Sep, [facility] [place] [facility] [address] [id number] [place] [address] Sep, [facility] [place] [facility] [address] [id number] [place] [address] Sep, [facility] [place] [facility] [address] [id number] [place] [address] 26 Aug, 2013 [facility] [place] [facility] [address] [id number] [place] [address] 14 Aug, 2013 [facility] [place] [facility] [address] [id number] [place] [address] 14 Aug, 2013 [facility] [place] [facility] [address] [id number] [place] [address] 13 Aug, 2013 [facility] [place] [facility] [address] [id number] [place] [address] 13 Aug, 2013 [facility] [place] [facility] [address] [id number] [place] [address] 07 Aug, 2013 [facility] [place] [facility] [address] [id number] [place] [address] 24 Jul, 2013 [facility] [place] [facility] [address] [facility] [id number] [place] [address] 24 Jul, 2013 [facility] [place] [facility] [address] [facility] [id number] [place] [address] 06 Jul, 2013 [facility] [place] [facility] [address] [facility] [id number] [place] [address] 06 Jul, 2013 [facility] [place] [facility] [address] [facility] [id number] [place] [address] May, [facility] [place] [facility] [address] [facility] [id number] [place] [address] May, [facility] [place] [facility] [address] [id number] [place] [address] May, [facility] [place] [facility] [address] [id number] [place] [address] May, [facility] [place] [facility] [address] [facility] [id number] [place] [address] Apr, [facility] [place] [facility] [address] [facility] [id number] [place] [address] Apr, [facility] [place] [facility] [address] [id number] [place] [address] Apr, [facility] [place] [facility] [address] [id number] [place] [address] Apr, [facility] [place] [facility] [address] [id number] [place] [address] Apr, [facility] [place] [facility] [address] [id number] [place] [address] Apr, [facility] [place] [facility] [address] [id number] [place] [address] Apr, [facility] [place] [facility] [address] [id number] [place] [address] Apr, [facility] [place] [facility] [address] [id number] [place] [address] Mar, [facility] [place] [facility] [address] [id number] [place] [address] Dec, [facility] [place] [facility] [address] [id number] [place] [address] Dec, [facility] [place] [facility] [address] [id number] [place] [address] Nov, [facility] [place] [facility] [address] [id number] [place] [address] Nov, [facility] [place] [facility] [address] [id number] [place] [address] Nov, [facility] [place] [facility] [address] [id number] [place] [address] Sep, [facility] [place] [facility] [address] [id number] [place] [address] Aug, [facility] [place] [facility] [address] [id number] [place] [address] Aug, [facility] [place] [facility] [address] [id number] [place] [address] 08 Aug, 2012 [facility] [place] [facility] [address] [id number] [place] [address] Aug, [facility] [place] [facility] [address] [id number] [place] [address] Jul, [facility] [place] [facility] [address] [id number] [place] [address] Jul, [facility] [place] [facility] [address] [id number] [place] [address] May, [facility] [place] [facility] [address] [id number] [place] [address] May, [facility] [place] [facility] [address] [id number] [place] [address] May, [facility] [place] [facility] [address] [id number] [place] [address] Apr, [facility] [place] [facility] [address] [id number] [place] [address] Apr, [facility] [place] [facility] [address] [id number] [place] [address] Apr, [facility] [place] [facility] [address] [id number] [place] [address] Apr, [facility] [place] [facility] [address] [id number] [place] [address] Apr, [facility] [place] [facility] [address] [id number] [place] [address] Apr, [facility] [place] [facility] [address] [id number] [place] [address] Mar, [facility] [place] [facility] [address] [id number] [place] [address] Mar, [facility] [place] [facility] [address] [id number] [place] [address] Mar, [facility] [place] [facility] [address] [id number] [place] [address] 14 Feb, 2012 [facility] [address] [id number] [place] [address] 11 Feb, 2012 [facility] [place] [facility] [address] [id number] [place] [address] 11 Feb, 2012 [facility] [address] [id number] [place] [address] 24 Jan, 2012 [facility] [address] [id number] [place] [address] Jan, [facility] [address] [id number] [place] [address] Jan, [facility] [address] [id number] [place] [address] Jan, [facility] [address] [id number] [place] [address] Dec, [facility] [address] [id number] [place] [address] Dec, [facility] [address] [id number] [place] [address] Nov, [facility] [address] [id number] [place] [address] Nov, [facility] [place] [facility] [address] [id number] [place] [address] October, [facility] [address] [id number] [place] [address] October, [facility] [place] [facility] [address] [id number] [place] [address] Sep, [facility] [place] [facility] [address] [id number] [place] [address] Aug, [facility] [place] [facility] [address] [id number] [place] [address] Aug, [facility] [place] [facility] [address] [id number] [place] [address] Jul, [facility] [place] [facility] [address] [id number] [place] [address] Jun, [facility] [place] [facility] [address] [id number] [place] [address] Jun, [facility] [place] [facility] [address] [id number] [place] [address] Jun, [facility] [place] [facility] [address] [id number] [place] [address] Jun, [facility] [place] [facility] [address] [id number] [place] [address] May, [facility] [place] [facility] [address] [id number] [place] [address] May, [facility] [place] [facility] [address] [id number] [place] [address] Mar, [facility] [place] [facility] [address] [id number] [place] [address] Mar, [facility] [place] [facility] [address] [id number] [place] [address] Feb, [facility] [place] [facility] [address] [id number] [place] [address] Dec, [facility] [place] [facility] [address] [id number] [place] [address] Aug, [facility] [place] [facility] [address] [id number] [place] [address] Aug, [facility] [place] [facility] [address] [id number] [place] [address] May, [facility] [place] [facility] [address] [id number] [place] [address] Jan, [facility] [place] [facility] [address] [id number], [place] [address] Apr, [facility] [address] [facility] [id number], [place] [address] Apr, [facility] [address] [facility] [id number], [place] [address] Jan, [facility] [address] [facility] [id number], [place] [address] Aug, IMMUNIZATIONS No Known Immunizations SOCIAL HISTORY Never Assessed REASON FOR VISIT pt fell wednesday and is really sore. pt states she is dizzy, pain in legs, hips , ribs. pt states she thinks she hit her head. Varun COWAN PLAN OF CARE Activity Details Follow Up 4 Weeks Reason:dementia VITAL SIGNS Height 64 in 2018-05-13 Weight 168.5 lbs 2018-05-13 Temperature 97.4 degrees Fahrenheit 2018-05-13 Heart Rate 72 bpm 2018-05-13 Respiratory Rate 20 2018-05-13 BMI 28.92 kg/m2 2018-05-13 Blood pressure systolic 126 mmHg 2018-05-13 Blood pressure diastolic 70 mmHg 2018-05-13 MEDICATIONS Medication Instructions Dosage Frequency Start Date End Date Duration Status Cetirizine HCl 10 MG Orally Once a day 1 tablet 24h 30 day(s) Active Albuterol Sulfate Active Sertraline HCl 50 mg Orally Once a day 1 tablet 24h Feb, Active Adim8ace Blood Glucose Monitor - subcutaneously Once a day use to check BS 24h October, Active ProAir HFA Active Spironolactone 25 MG Orally Once a day 1 tablet 24h Mar, Jun, 30 day(s) Active Meclizine HCl 25 MG Orally 2 times a day 1 tablet as needed 12h Mar, 30 day(s) Active GlipiZIDE 10 mg Orally Once a day 1 tablet 24h October, 90 days Active Neurontin 300 MG Orally Three times a day 1 capsule 8h Aug, 30 day(s) Active Percocet 5-325 MG Orally every 6 hrs 1 tablet as needed 6h Active Aricept 10 MG Orally Once a day 1 tablet at bedtime 24h Jun, Active RESULTS No Results PROCEDURES No Known [...]
--- OUTSIDE RECORDS SUMMARY | 2019-01-20 14:56 | XMS REPORT ---
Author Author HERMILO VERDUGO Organization [facility] Address [address] [place] [address] Care Team Providers Care Computer Numerical Control Programmer Name Role Phone KARTIK HERMILO Unavailable PROBLEMS Type Condition ICD9-CM Code [id number] Code Onset Dates Condition Status SNOMED Code Problem Moderate episode of recurrent major depressive disorder F33.1 Active 403114803 Problem Arthritis M19.90 Active 5446833 Problem Diabetic polyneuropathy associated with type 2 diabetes mellitus E11.42 Active 03091623 Problem Dementia in other diseases classified elsewhere with behavioral disturbance F02.81 Active 792199376 Problem Alzheimer''s disease, unspecified G30.9 Active 2934546434353 Problem Type 2 diabetes mellitus with hyperglycemia E11.65 Active 303586121565740 Problem Major depressive disorder, recurrent, in full remission F33.42 Active 232356725 Problem Seasonal allergies J30.2 Active 115469882 Problem Type 2 diabetes mellitus with unspecified diabetic retinopathy without macular edema E11.319 Active 375533123 Problem Anxiety F41.9 Active 66084655 Problem Diabetes E11.9 Active 116478320 Problem Corns L84 Active 239441508 Problem Alzheimers disease with early onset G30.0 Active 5916340 Problem Flat foot [pes planus] (acquired), right foot M21.41 Active 32399784 Problem Uncontrolled type 2 diabetes mellitus without complication, without long- term current use of insulin E11.65 Active 058686981 ALLERGIES Substance Reaction Event Type Date Status SulfADIAZINE shortness of breath Drug Allergy Mar, Active Lisinopril hypotension Drug Allergy Mar, Active Cozaar hypotension Drug Allergy Mar, Active Aspirin Unknown Drug Allergy Mar, Active ENCOUNTERS Encounter Location Date Diagnosis [facility] [address] [facility] [id number] [address] Apr, [facility] [address] [facility] [id number] [address] Mar, Dysfunction of both eustachian tubes H69.83 [place] [id number] [place] [address] Mar, Annual physical exam Z00.00 [place] [address] [place] [id number] [place] [address] Mar, Diabetic polyneuropathy associated with type 2 diabetes mellitus E11.42 ; Pain of left foot M79.672 ; Pain in right foot M79.671 ; Alzheimer''s disease, unspecified G30.9 and Dementia in other diseases classified elsewhere with behavioral disturbance F02.81 [facility] [address] [place] [id number] [place] [address] Nov, Diabetes E11.9 and Seasonal allergies J30.2 [place] [address] [place] [id number] [place] [address] October, Type 2 diabetes mellitus with hyperglycemia E11.65 and Type 2 diabetes mellitus with unspecified diabetic retinopathy without macular edema E11.319 [place] [address] [place] [id number] [place] [address] October, Diabetes E11.9 ; Alzheimers disease with early onset G30.0 ; Arthritis M19.90 ; Diabetic polyneuropathy associated with type 2 diabetes mellitus E11.42 and Major depressive disorder, recurrent, in full remission F33.42 [place] [address] [place] [id number] [place] [address] Sep, [place] [address] [place] [id number] [place] [address] Sep, Dysfunction of both eustachian tubes H69.83 [place] [address] [place] [id number] [place] [address] Aug, Alzheimer''s disease with early onset G30.0 ; Dementia in other diseases classified elsewhere with behavioral disturbance F02.81 ; 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 and Type 2 diabetes mellitus with hyperglycemia E11.65 [place] [address] [address] Jul, [address] [address] Jul, Alzheimer''s disease with early onset G30.0 ; Dementia in other diseases classified elsewhere with behavioral disturbance F02.81 and Uncontrolled type 2 diabetes mellitus without complication, without long-term current use of insulin E11.[address] [address] May, Diabetes type 2, controlled E11.9 ; Bilateral otitis media with effusion H65.93 and Dizziness R42 [facility] [address] [address] Apr, Dysuria R30.0 and Acute cystitis with hematuria N30.[address] [address] Apr, Moderate episode of recurrent major depressive disorder F33.1 [facility] [address] [address] Mar, Acute cystitis without hematuria N30.[address] [address] 28 Feb, 2017 Uncontrolled type 2 diabetes mellitus without complication, without long-term current use of insulin E11.65 ; Other Alzheimer''s disease G30.8 and Dementia in other diseases classified elsewhere without behavioral disturbance F02.[address] [address] Jan, Diabetes type 2, controlled E11.9 and Alzheimers disease with early onset G30.0 [facility] [address] [address] Dec, Allergic contact dermatitis due to plants, except food L23.7 [facility] [address] [address] Dec, Dysuria R30.0 and Candidiasis of female genitalia B37.3 [place] [address] [place] [id number] [place] [address] 14 Dec, 2016 Diabetes E11.9 and Alzheimers disease with early onset G30.0 [facility] [place] [address] [address] Nov, Acute exacerbation of chronic obstructive pulmonary disease (COPD) J44.1 and Vaginal candidiasis B37.[address] [address] 15 Nov, 2016 Controlled type 2 diabetes mellitus without complication, without long-term current use of insulin E11.9 and Other Alzheimers disease G30.[address] [address] October, OME (otitis media with effusion), bilateral H65.93 ; Dizziness R42 and Diabetes E11.9 [facility] [address] [address] Sep, Vertigo R42 ; Heart murmur R01.1 and Dysfunction of inner ear, bilateral H83.[address] [address] Aug, Acute suppurative otitis media of both ears without spontaneous rupture of tympanic membranes, recurrence not specified H66.003 [facility] [address] [address] Aug, Vaginal irritation N89.8 and Acute exacerbation of chronic obstructive pulmonary disease (COPD) J44.1 [place] [address] [address] Jul, Dementia in other diseases classified elsewhere without behavioral disturbance F02.[address] [address] Jul, [address] [address] Jun, Diabetes type 2, controlled E11.9 ; Alzheimers disease with early onset G30.0 and Dementia in other diseases classified elsewhere without behavioral disturbance F02.[address] [address] May, Diabetes type 2, controlled E11.9 [facility] [address] [address] May, Vaginal candidiasis B37.3 and Dysuria R30.0 [facility] [address] [address] May, Cutaneous abscess of head [any part, except face] L02.811 ; Cellulitis of head [any part, except face] L03.811 ; COPD exacerbation J44.1 and Wheezing R06.[address] [address] Apr, [address] [address] Apr, Diabetes E11.9 ; Acute upper respiratory infection, unspecified J06.9 and Vagina, candidiasis B37.3 [facility] [address] [address] Mar, Acute exacerbation of chronic obstructive pulmonary disease (COPD) J44.[address] [address] Mar, Diabetes type 2, controlled E11.9 [facility] [address] [address] Feb, Acute bronchitis, unspecified organism J20.[address] [address] Feb, Controlled type 2 diabetes mellitus without complication, without long-term current use of insulin E11.[address] [address] Jan, Controlled type 2 diabetes mellitus without complication, without long-term current use of insulin E11.9 and Anxiety F41.9 [facility] [address] [address] Dec, [facility] [address] [address] Nov, Diabetes type 2, controlled E11.9 [facility] [address] [place] [id number] [place] [address] Nov, Acute pain of left shoulder M25.512 [facility] [address] [place] [id number] [place] [address] October, Cellulitis of face L03.211 [facility] [address] [place] [id number] [place] [address] October, Diabetes type 2, controlled E11.9 [place] [address] [place] [id number] [place] [address] October, Diabetes type 2, controlled E11.9 [place] [id number] [place] [address] Sep, Generalized anxiety disorder F41.1 ; Depression F32.9 and FH: memory loss Z82.0 [place] [id number] [place] [address] Sep, FH: memory loss Z82.0 ; Major depression, recurrent F33.9 and Anxiety disorder, unspecified F41.9 [place] [address] [address] Aug, PTSD (post-traumatic stress disorder) F43.10 ; Generalized anxiety disorder F41.1 and FH: memory loss Z82.0 [place] [id number] [place] [address] Aug, FH: memory loss Z82.0 ; Depression F32.9 and PTSD (post-traumatic stress disorder) F43.10 [place] [address] [place] [id number] [place] [address] Jul, Major depression, recurrent F33.9 ; Generalized anxiety disorder F41.1 and Alzheimer disease G30.9 [place] [id number] [place] [address] 29 Jul, 2015 Diabetes E11.9 and Mood disorder F39 [address] [address] 17 Jul, 2015 Dental examination Z01.[address] [address] Apr, Exertional dyspnea R06.09 and Chronic obstructive pulmonary disease, unspecified COPD type J44.9 [place] [id number] [place] [address] Mar, [address] [address] Mar, Diabetes E11.[address] [address] Mar, Diabetes E11.9 ; COPD (chronic obstructive pulmonary disease) J44.9 and Hip pain, right M25.551 [place] [id number] [place] [address] Dec, [place] [id number] [place] [address] Nov, COPD exacerbation 491.21 and Wheezing 786.07 [place] [id number] [place] [address] October, Acute contact dermatitis 692.9 and Anhedonia 780.99 [place] [id number] [place] [address] October, [place] [id number] [place] [address] Sep, [place] [id number] [place] [address] 13 Sep, 2014 [facility] [place] [facility] [address] [id number] [place] [address] Aug, [facility] [place] [facility] [address] [id number] [place] [address] Aug, 2014 [facility] [place] [facility] [address] [id number] [place] [address] Aug, [facility] [place] [facility] [address] [id number] [place] [address] Aug, [facility] [place] [facility] [address] [id number] [place] [address] Jul, 2014 [facility] [place] [facility] [address] [facility] [id number] [place] [address] Jul, 2014 [facility] [place] [facility] [address] [facility] [id number] [place] [address] Jul, 2014 [facility] [place] [facility] [address] [id number] [place] [address] Jul, 2014 [facility] [place] [facility] [address] [facility] [id number] [place] [address] Jul, [facility] [place] [facility] [address] [facility] [id number] [place] [address] Jul, [facility] [place] [facility] [address] [facility] [id number] [place] [address] May, [facility] [place] [facility] [address] [id number] [place] [address] May, [facility] [place] [facility] [address] [id number] [place] [address] May, [facility] [place] [facility] [address] [facility] [id number] [place] [address] May, [facility] [place] [facility] [address] [facility] [id number] [place] [address] May, [facility] [place] [facility] [address] [id number] [place] [address] May, [facility] [place] [facility] [address] [id number] [place] [address] Apr, [facility] [place] [facility] [address] [id number] [place] [address] Apr, [facility] [place] [facility] [address] [id number] [place] [address] Apr, [facility] [place] [facility] [address] [id number] [place] [address] Apr, [facility] [place] [facility] [address] [id number] [place] [address] Mar, [facility] [place] [facility] [address] [id number] [place] [address] Mar, [facility] [place] [facility] [address] [id number] [place] [address] Feb, [facility] [place] [facility] [address] [id number] [place] [address] Feb, [facility] [place] [facility] [address] [id number] [place] [address] Jan, [facility] [place] [facility] [address] [id number] [address] Jan, [facility] [place] [facility] [address] [id number], [place] [address] Dec, [facility] [place] [facility] [address] [id number] [place] [address] Dec, [facility] [place] [facility] [address] [id number] [place] [address] October, [facility] [place] [facility] [address] [id number] [place] [address] October, [facility] [place] [facility] [address] [id number] [place] [address] October, [facility] [place] [facility] [address] [id number] [place] [address] October, [facility] [place] [facility] [address] [id number] [place] [address] October, [facility] [place] [facility] [address] [id number] [place] [address] October, [facility] [place] [facility] [address] [id number] [place] [address] Sep, [facility] [place] [facility] [address] [id number] [place] [address] Sep, [facility] [place] [facility] [address] [id number] [place] [address] Sep, [facility] [place] [facility] [address] [id number] [place] [address] Sep, [facility] [place] [facility] [address] [id number] [place] [address] Sep, [facility] [place] [facility] [address] [id number] [place] [address] Sep, [facility] [place] [facility] [address] [id number] [place] [address] Sep, [facility] [place] [facility] [address] [id number] [place] [address] Sep, [facility] [place] [facility] [address] [id number] [place] [address] 26 Aug, 2013 [facility] [place] [facility] [address] [id number] [place] [address] 14 Aug, 2013 [facility] [place] [facility] [address] [id number] [place] [address] 14 Aug, 2013 [facility] [place] [facility] [address] [id number] [place] [address] Aug, [facility] [place] [facility] [address] [id number] [place] [address] Aug, [facility] [place] [facility] [address] [id number] [place] [address] Aug, [facility] [place] [facility] [address] [id number] [place] [address] Jul, [facility] [place] [facility] [address] [id number] [place] [address] Jul, [facility] [place] [facility] [address] [id number] [place] [address] Jul, [facility] [place] [facility] [address] [id number] [place] [address] Jul, [facility] [place] [facility] [address] [id number] [place] [address] May, [facility] [place] [facility] [address] [id number] [place] [address] May, [facility] [place] [facility] [address] [id number] [place] [address] May, [facility] [place] [facility] [address] [id number] [place] [address] May, [facility] [place] [facility] [address] [id number] [place] [address] Apr, [facility] [place] [facility] [address] [id number] [place] [address] Apr, [facility] [place] [facility] [address] [id number] [place] [address] Apr, [facility] [place] [facility] [address] [id number] [place] [address] Apr, [facility] [place] [facility] [address] [id number] [place] [address] Apr, [facility] [place] [facility] [address] [id number] [place] [address] Apr, [facility] [address] [id number] [place] [address] Apr, [facility] [place] [facility] [address] [id number] [place] [address] Apr, [facility] [address] [id number] [place] [address] Mar, [facility] [place] [facility] [address] [id number] [place] [address] Dec, [facility] [address] [id number] [place] [address] Dec, [facility] [place] [facility] [address] [id number] [place] [address] Nov, [facility] [address] [id number] [place] [address] Nov, [facility] [place] [facility] [address] [id number] [place] [address] Nov, [facility] [address] [id number] [place] [address] Sep, [facility] [place] [facility] [address] [facility] [id number] [place] [address] Aug, [facility] [place] [facility] [address] [id number] [place] [address] Aug, [facility] [place] [facility] [address] [id number], [place] [address] Aug, [facility] [place] [facility] [address] [id number] [place] [address] Aug, [facility] [place] [facility] [address] [id number] [place] [address] Jul, [facility] [place] [facility] [address] [facility] [id number], [place] [address] 07 Jul, 2012 [facility] [place] [facility] [address] [id number] [place] [address] May, [facility] [place] [facility] [address] [id number] [place] [address] May, [facility] [place] [facility] [address] [id number] [place] [address] May, [facility] [place] [facility] [address] [id number] [place] [address] Apr, [facility] [place] [facility] [address] [id number] [place] [address] Apr, [facility] [place] [facility] [address] [id number] [place] [address] Apr, [facility] [place] [facility] [address] [id number] [place] [address] Apr, [facility] [place] [facility] [address] [id number] [place] [address] Apr, [facility] [place] [facility] [address] [id number] [place] [address] Apr, [facility] [place] [facility] [address] [id number] [place] [address] Mar, [facility] [place] [facility] [address] [id number] [place] [address] Mar, [facility] [place] [facility] [address] [id number] [place] [address] Mar, [facility] [place] [facility] [address] [id number] [place] [address] 14 Feb, 2012 [facility] [place] [facility] [address] [id number] [place] [address] 11 Feb, 2012 [facility] [place] [facility] [address] [id number] [place] [address] Feb, [facility] [place] [facility] [address] [id number] [place] [address] Jan, [facility] [place] [facility] [address] [id number] [place] [address] Jan, [facility] [place] [facility] [address] [id number] [place] [address] Jan, [facility] [place] [facility] [address] [id number] [place] [address] Jan, [facility] [place] [facility] [address] [id number] [place] [address] Dec, [facility] [place] [facility] [address] [id number] [place] [address] Dec, [facility] [place] [facility] [address] [id number] [place] [address] Nov, [facility] [place] [facility] [address] [id number] [place] [address] Nov, [facility] [place] [facility] [address] [id number] [place] [address] October, [facility] [place] [facility] [address] [id number] [place] [address] October, [facility] [place] [facility] [address] [id number] [place] [address] Sep, [facility] [place] [facility] [address] [id number] [place] [address] Aug, [facility] [place] [facility] [address] [id number] [place] [address] Aug, [facility] [place] [facility] [address] [id number] [place] [address] Jul, [facility] [place] [facility] [address] [id number] [place] [address] Jun, [facility] [place] [facility] [address] [id number] [place] [address] Jun, [facility] [place] [facility] [address] [id number] [place] [address] Jun, [facility] [address] [id number] [place] [address] Jun, [facility] [address] [id number] [place] [address] May, [facility] [address] [id number] [place] [address] May, [facility] [address] [id number] [place] [address] Mar, [facility] [address] [id number] [place] [address], [place] [address] Mar, [facility] [address] [id number] [place] [address] Feb, [facility] [address] [facility] [id number] [place] [address] Dec, [facility] [address] [id number] [place] [address] Aug, [facility] [address] [facility] [id number] [place] [address] 16 Aug, 2010 [facility] [address] [facility] [id number] [place] [address] May, [facility] [address] [facility] [id number] [place] [address] Jan, [facility] [address] [id number] [place] [address] Apr, [facility] [address] [id number] [place] [address] Apr, [facility] [address] [facility] [id number] [place] [address] Jan, [facility] [address] [facility] [id number] [place] [address] Aug, IMMUNIZATIONS No Known Immunizations SOCIAL HISTORY Never Assessed REASON FOR VISIT F/u, and PT report she has been feeling dizzy a lot lately- Manish COW[place] PLAN OF CARE VITAL SIGNS Height 64 in 2018-04-13 Weight 162 lbs 2018-04-13 Temperature 98.0 degrees Fahrenheit 2018-04-13 Heart Rate 86 bpm 2018-04-13 Respiratory Rate 20 2018-04-13 Oximetry 96 % 2018-04-13 BMI 27.80 kg/m2 2018-04-13 Blood pressure systolic 130 mmHg 2018-04-13 Blood pressure diastolic 70 mmHg 2018-04-13 MEDICATIONS Medication Instructions Dosage Frequency Start Date End Date Duration Status Meclizine HCl 25 MG Orally 2 times a day 1 tablet as needed 12h Mar, 30 day(s) Active PredniSONE 20 mg Orally Once a day 2 tablets 24h Mar, Apr, 5 days Active Spironolactone 25 MG Orally Once a day 1 tablet 24h Mar, Jun, 30 day(s) Active Neurontin 300 MG Orally Three times a day 1 capsule 8h Aug, 30 day(s) Active Sertraline HCl 50 mg Orally Once a day 1 tablet 24h Feb, Active Aricept 5 mg Orally Once a day 1 tablet at bedtime 24h Jun, Active ProAir HFA Active Embrace Blood Glucose Monitor - subcutaneously Once a day use to check BS 24h October, Active GlipiZIDE 10 mg Orally Once a day 1 tablet 24h October, 30 day(s) Active Cetirizine HCl 10 MG Orally Once a day 1 tablet 24h 30 day(s) Active Albuterol Sulfate Active RESULTS No Results PROCEDURES No Known [...]
--- OUTSIDE RECORDS SUMMARY | 2019-01-20 14:56 | XMS REPORT ---
Author Author HERMILO VERDUGO Organization [facility] Address [address] [place] [address] Care Team Providers Care Well Digger Name Role Phone KARTIK HERMILO Unavailable PROBLEMS Type Condition ICD9-CM Code [id number] Code Onset Dates Condition Status SNOMED Code Problem Moderate episode of recurrent major depressive disorder F33.1 Active 238221606 Problem Arthritis M19.90 Active 8372913 Problem Diabetic polyneuropathy associated with type 2 diabetes mellitus E11.42 Active 52344670 Problem Dementia in other diseases classified elsewhere with behavioral disturbance F02.81 Active 631293902 Problem Alzheimer''s disease, unspecified G30.9 Active 5594800554977 Problem Type 2 diabetes mellitus with hyperglycemia E11.65 Active [id number] Problem Major depressive disorder, recurrent, in full remission F33.42 Active 789299236 Problem Seasonal allergies J30.2 Active 691201709 Problem Type 2 diabetes mellitus with unspecified diabetic retinopathy without macular edema E11.319 Active 060970294 Problem Anxiety F41.9 Active 13104830 Problem Diabetes E11.9 Active 581457256 Problem Corns L84 Active 690783017 Problem Alzheimers disease with early onset G30.0 Active 3681025 Problem Flat foot [pes planus] (acquired), right foot M21.41 Active 20428713 Problem Uncontrolled type 2 diabetes mellitus without complication, without long- term current use of insulin E11.65 Active 634531342 ALLERGIES Substance Reaction Event Type Date Status SulfADIAZINE shortness of breath Drug Allergy Mar, Active Lisinopril hypotension Drug Allergy Mar, Active Cozaar hypotension Drug Allergy Mar, Active Aspirin Unknown Drug Allergy Mar, Active ENCOUNTERS Encounter Location Date Diagnosis [facility] [address] [facility] [id number] [place] [address] Mar, [facility] [address] [facility] [id number] [place] [address] Mar, Annual physical exam Z00.00 [facility] [address] [place] [place] [id number] [place] [address] Mar, Diabetic polyneuropathy associated with type 2 diabetes mellitus E11.42 ; Pain of left foot M79.672 ; Pain in right foot M79.671 ; Alzheimer''s disease, unspecified G30.9 and Dementia in other diseases classified elsewhere with behavioral disturbance F02.81 [facility] [id number] [place] [address] Nov, Diabetes E11.9 and Seasonal allergies J30.[address] [address] October, Type 2 diabetes mellitus with hyperglycemia E11.65 and Type 2 diabetes mellitus with unspecified diabetic retinopathy without macular edema E11.319 [place] [id number] [place] [address] October, Diabetes E11.9 ; Alzheimers disease with early onset G30.0 ; Arthritis M19.90 ; Diabetic polyneuropathy associated with type 2 diabetes mellitus E11.42 and Major depressive disorder, recurrent, in full remission F33.42 [place] [id number] [place] [address] Sep, [place] [id number] [place] [address] Sep, Dysfunction of both eustachian tubes H69.83 [place] [id number] [place] [address] Aug, Alzheimer''s disease with early onset G30.0 ; Dementia in other diseases classified elsewhere with behavioral disturbance F02.81 ; 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 and Type 2 diabetes mellitus with hyperglycemia E11.65 [facility] [id number] [place] [address] Jul, [place] [id number] [place] [address] Jul, Alzheimer''s disease with early onset G30.0 ; Dementia in other diseases classified elsewhere with behavioral disturbance F02.81 and Uncontrolled type 2 diabetes mellitus without complication, without long-term current use of insulin E11.65 [place] [id number] [place] [address] May, Diabetes type 2, controlled E11.9 ; Bilateral otitis media with effusion H65.93 and Dizziness R42 [facility] [address] [address] Apr, Dysuria R30.0 and Acute cystitis with hematuria N30.[address] [address] 02 Apr, 2017 Moderate episode of recurrent major depressive disorder F33.1 [facility] [address] [address] Mar, Acute cystitis without hematuria N30.[address] [address] Feb, Uncontrolled type 2 diabetes mellitus without complication, without long-term current use of insulin E11.65 ; Other Alzheimer''s disease G30.8 and Dementia in other diseases classified elsewhere without behavioral disturbance F02.80 [place] [id number] [place] [address] Jan, Diabetes type 2, controlled E11.9 and Alzheimers disease with early onset G30.0 [facility] [place] [id number] [place] [address] Dec, Allergic contact dermatitis due to plants, except food L23.7 [facility] [address] [address] Dec, Dysuria R30.0 and Candidiasis of female genitalia B37.[address] [address] Dec, Diabetes E11.9 and Alzheimers disease with early onset G30.0 [facility] [id number] [place] [address] Nov, Acute exacerbation of chronic obstructive pulmonary disease (COPD) J44.1 and Vaginal candidiasis B37.3 [place] [id number] [place] [address] Nov, Controlled type 2 diabetes mellitus without complication, without long-term current use of insulin E11.9 and Other Alzheimers disease G30.8 [place] [id number] [place] [address] October, OME (otitis media with effusion), bilateral H65.93 ; Dizziness R42 and Diabetes E11.9 [facility] [place] [address] [address] Sep, Vertigo R42 ; Heart murmur R01.1 and Dysfunction of inner ear, bilateral H83.93 [place] [address] [address] Aug, Acute suppurative otitis media of both ears without spontaneous rupture of tympanic membranes, recurrence not specified H66.003 [facility] [place] [id number] [place] [address] Aug, Vaginal irritation N89.8 and Acute exacerbation of chronic obstructive pulmonary disease (COPD) J44.1 [place] [id number] [place] [address] Jul, Dementia in other diseases classified elsewhere without behavioral disturbance F02.80 [place] [address] [address] Jul, [address] [address] Jun, Diabetes type 2, controlled E11.9 ; Alzheimers disease with early onset G30.0 and Dementia in other diseases classified elsewhere without behavioral disturbance F02.80 [place] [address] [place] [id number] [place] [address] May, Diabetes type 2, controlled E11.9 [facility] IN [place] [address] [address] May, Vaginal candidiasis B37.3 and Dysuria R30.0 [facility] IN [place] [address] [address] 05 May, 2016 Cutaneous abscess of head [any part, except face] L02.811 ; Cellulitis of head [any part, except face] L03.811 ; COPD exacerbation J44.1 and Wheezing R06.[address] [address] Apr, [place] [address] [address] Apr, Diabetes E11.9 ; Acute upper respiratory infection, unspecified J06.9 and Vagina, candidiasis B37.3 [facility] IN [place] [address] [address] Mar, Acute exacerbation of chronic obstructive pulmonary disease (COPD) J44.1 [place] [address] [address] Mar, Diabetes type 2, controlled E11.9 [facility] IN [place] [address] [address] Feb, Acute bronchitis, unspecified organism J20.9 [place] [address] [address] 08 Feb, 2016 Controlled type 2 diabetes mellitus without complication, without long-term current use of insulin E11.9 [place] [address] [address] Jan, Controlled type 2 diabetes mellitus without complication, without long-term current use of insulin E11.9 and Anxiety F41.9 [place] [address] [address] Dec, [facility] [address] [place] [address] Nov, Diabetes type 2, controlled E11.9 [facility] [address] [place] [address] Nov, Acute pain of left shoulder M25.512 [facility] [id number] [place] [address] October, Cellulitis of face L03.211 [facility] [id number] [place] [address] October, Diabetes type 2, controlled E11.9 [facility] [id number] [place] [address] October, Diabetes type 2, controlled E11.9 [facility] [id number] [place] [address] Sep, Generalized anxiety disorder F41.1 ; Depression F32.9 and FH: memory loss Z82.0 [facility] [id number] [place] [address] Sep, FH: memory loss Z82.0 ; Major depression, recurrent F33.9 and Anxiety disorder, unspecified F41.9 [facility] [address] [place] [address] Aug, PTSD (post-traumatic stress disorder) F43.10 ; Generalized anxiety disorder F41.1 and FH: memory loss Z82.0 [facility] [address] [place] [address] Aug, FH: memory loss Z82.0 ; Depression F32.9 and PTSD (post-traumatic stress disorder) F43.10 [facility] [address] [place] [address] Jul, Major depression, recurrent F33.9 ; Generalized anxiety disorder F41.1 and Alzheimer disease G30.9 [place] [id number] [place] [address] 29 Jul, 2015 Diabetes E11.9 and Mood disorder F39 [place] [address] [address] 17 Jul, 2015 Dental examination Z01.[address] [address] Apr, Exertional dyspnea R06.09 and Chronic obstructive pulmonary disease, unspecified COPD type J44.9 [place] [address] [address] Mar, [place] [address] [address] Mar, Diabetes E11.[address] [address] Mar, Diabetes E11.9 ; COPD (chronic obstructive pulmonary disease) J44.9 and Hip pain, right M25.551 [place] [address] [address] Dec, [address] [address] Nov, COPD exacerbation 491.21 and Wheezing 786.[address] [address] October, Acute contact dermatitis 692.9 and Anhedonia 780.99 [place] [address] [place] [address] [id number] [place] [address] October, [place] [address] [address] Sep, [place] [address] [address] Sep, [place] [address] [address] 30 Aug, 2014 [facility] [place] [facility] [address] [id number] [place] [address] 30 Aug, 2014 [facility] [place] [facility] [address] [id number] [place] [address] Aug, 2014 [facility] [place] [facility] [address] [facility] [id number] [place] [address] Aug, 2014 [facility] [place] [facility] [address] [id number] [place] [address] Jul, 2014 [facility] [place] [facility] [address] [id number] [place] [address] Jul, 2014 [facility] [place] [facility] [address] [facility] [id number] [place] [address] Jul, 2014 [facility] [place] [facility] [address] [facility] [id number] [place] [address] Jul, 2014 [facility] [place] [facility] [address] [facility] [id number] [place] [address] Jul, 2014 [facility] [place] [facility] [address] [facility] [id number] [place] [address] Jul, 2014 [facility] [place] [facility] [address] [facility] [id number] [place] [address] May, [facility] [place] [facility] [address] [facility] [id number] [place] [address] May, [facility] [place] [facility] [address] [id number] [place] [address] May, [facility] [place] [facility] [address] [id number] [place] [address] May, [facility] [place] [facility] [address] [facility] [id number] [place] [address] May, [facility] [place] [facility] [address] [facility] [id number] [place] [address] May, [facility] [place] [facility] [address] [id number] [place] [address] Apr, [facility] [place] [facility] [address] [id number] [place] [address] Apr, [facility] [place] [facility] [address] [id number] [place] [address] Apr, [facility] [place] [facility] [address] [id number] [place] [address] Apr, [facility] [place] [facility] [address] [id number] [place] [address] Mar, [facility] [place] [facility] [address] [id number] [place] [address] Mar, [facility] [place] [facility] [address] [id number] [place] [address] Feb, [facility] [place] [facility] [address] [id number] [place] [address] Feb, [facility] [place] [facility] [address] [id number] [place] [address] Jan, [facility] [place] [facility] [address] [id number] [place] [address] Jan, [facility] [place] [facility] [address] [id number] [place] [address] Dec, [facility] [place] [facility] [address] [id number] [place] [address] Dec, [facility] [place] [facility] [address] [id number] [place] [address] October, [facility] [place] [facility] [address] [id number] [place] [address] October, [facility] [place] [facility] [address] [id number] [place] [address] October, [facility] [place] [facility] [address] [id number] [place] [address] October, [facility] [place] [facility] [address] [id number] [place] [address] October, [facility] [place] [facility] [address] [id number] [place] [address] October, [facility] [place] [facility] [address] [id number] [place] [address] Sep, [facility] [place] [facility] [address] [id number] [place] [address] Sep, [facility] [place] [facility] [address] [id number] [place] [address] Sep, [facility] [place] [facility] [address] [id number] [place] [address] Sep, [facility] [place] [facility] [address] [id number] [place] [address] Sep, [facility] [place] [facility] [address] [id number] [place] [address] Sep, [facility] [place] [facility] [address] [id number] [place] [address] Sep, [facility] [place] [facility] [address] [id number] [place] [address] Sep, [facility] [place] [facility] [address] [id number] [place] [address] 26 Aug, 2013 [facility] [place] [facility] [address] [id number] [place] [address] 14 Aug, 2013 [facility] [place] [facility] [address] [id number] [place] [address] 14 Aug, 2013 [facility] [place] [facility] [address] [id number] [place] [address] 13 Aug, 2013 [facility] [place] [facility] [address] [id number] [place] [address] 13 Aug, 2013 [facility] [place] [facility] [address] [id number] [place] [address] Aug, [facility] [address] [id number] [place] [address] Jul, 2013 [facility] [place] [facility] [address] [id number] [place] [address] Jul, 2013 [facility] [place] [facility] [address] [id number] [place] [address] Jul, [facility] [place] [facility] [address] [id number] [place] [address] Jul, [facility] [place] [facility] [address] [id number] [place] [address] May, [facility] [place] [facility] [address] [facility] [id number] [place] [address] May, [facility] [place] [facility] [address] [id number] [place] [address] May, [facility] [place] [facility] [address] [id number] [place] [address] May, [facility] [place] [facility] [address] [facility] [id number] [place] [address] Apr, [facility] [place] [facility] [address] [facility] [id number] [place] [address] Apr, [facility] [place] [facility] [address] [id number] [place] [address] Apr, [facility] [place] [facility] [address] [id number] [place] [address] Apr, [facility] [place] [facility] [address] [id number] [place] [address] Apr, [facility] [place] [facility] [address] [id number] [place] [address] Apr, [facility] [place] [facility] [address] [facility] [id number] [place] [address] Apr, [facility] [address] [id number] [place] [address] Apr, [facility] [place] [facility] [address] [id number] [place] [address] Mar, [facility] [place] [facility] [address] [id number] [place] [address] Dec, [facility] [place] [facility] [address] [id number] [place] [address] Dec, [facility] [place] [facility] [address] [id number] [place] [address] Nov, [facility] [place] [facility] [address] [id number] [place] [address] Nov, [facility] [place] [facility] [address] [id number] [place] [address] Nov, [facility] [place] [facility] [address] [id number] [place] [address] Sep, [facility] [place] [facility] [address] [id number] [place] [address] Aug, [facility] [place] [facility] [address] [id number] [place] [address] Aug, [facility] [place] [facility] [address] [id number] [place] [address] Aug, [facility] [place] [facility] [address] [id number] [place] [address] Aug, [facility] [place] [facility] [address] [id number] [place] [address] Jul, [facility] [place] [facility] [address] [id number] [place] [address] Jul, [facility] [place] [facility] [address] [id number] [place] [address] May, [facility] [place] [facility] [address] [id number] [place] [address] May, [facility] [place] [facility] [address] [id number] [place] [address] May, [facility] [place] [facility] [address] [id number] [place] [address] Apr, [facility] [place] [facility] [address] [id number] [place] [address] Apr, [facility] [place] [facility] [address] [id number] [place] [address] Apr, [facility] [place] [facility] [address] [id number] [place] [address] Apr, [facility] [place] [facility] [address] [id number] [place] [address] Apr, [facility] [place] [facility] [address] [id number] [place] [address] Apr, [facility] [place] [facility] [address] [id number] [place] [address] Mar, [facility] [place] [facility] [address] [id number] [place] [address] Mar, [facility] [place] [facility] [address] [id number] [place] [address] Mar, [facility] [place] [facility] [address] [id number] [place] [address] 14 Feb, 2012 [facility] [place] [facility] [address] [id number] [place] [address] Feb, [facility] [place] [facility] [address] [id number] [place] [address] Feb, [facility] [place] [facility] [address] [id number] [place] [address] Jan, [facility] [place] [facility] [address] [id number] [place] [address] Jan, [facility] [place] [facility] [address] [id number] [place] [address] Jan, [facility] [place] [facility] [address] [id number] [place] [address] Jan, [facility] [place] [facility] [address] [id number] [place] [address] Dec, [facility] [place] [facility] [address] [id number] [place] [address] Dec, [facility] [place] [facility] [address] [id number] [place] [address] Nov, [facility] [place] [facility] [address] [id number] [place] [address] Nov, [facility] [place] [facility] [address] [id number] [place] [address] October, [facility] [place] [facility] [address] [id number] [place] [address] October, [facility] [place] [facility] [address] [id number] [place] [address] Sep, [facility] [place] [facility] [address] [id number] [place] [address] Aug, [facility] [place] [facility] [address] [id number] [place] [address] Aug, [facility] [place] [facility] [address] [id number] [place] [address] Jul, [facility] [place] [facility] [address] [id number] [place] [address] Jun, [facility] [place] [facility] [address] [id number] [place] [address] Jun, [facility] [place] [facility] [address] [id number] [place] [address] Jun, [facility] [place] [facility] [address] [id number] [place] [address] Jun, [facility] [address] [facility] [id number] [place] [address] May, [facility] [address] [facility] [id number] [place] [address] May, [facility] [address] [facility] [id number] [place] [address] Mar, [facility] [address] [facility] [id number] [place] [address] Mar, [facility] [address] [facility] [id number] [place] [address] Feb, [facility] [address] [facility] [id number] [place] [address] Dec, [facility] [id number] [place] [address] Aug, [facility] [address] [facility] [id number] [place] [address] Aug, [facility] [address] [id number] [place] [address] May, [facility] [address] [id number] [place] [address] Jan, [facility] [address] [id number] [place] [address] Apr, [facility] [address] [id number] [place] [address] Apr, [facility] [address] [facility] [id number] [place] [address] Jan, [facility] [address] [facility] [id number] [place] [address] Aug, IMMUNIZATIONS No Known Immunizations SOCIAL HISTORY Never Assessed REASON FOR VISIT Medicare [place] PLAN OF CARE Activity Details Follow Up 1 Year Reason:AWV VITAL SIGNS Height 64 in 2018-04-04 Weight 162.3 lbs 2018-04-04 Temperature 98.1 degrees Fahrenheit 2018-04-04 Heart Rate 62 bpm 2018-04-04 Respiratory Rate 20 2018-04-04 Oximetry 98 % 2018-04-04 BMI 27.86 kg/m2 2018-04-04 Blood pressure systolic 128 mmHg 2018-04-04 Blood pressure diastolic 70 mmHg 2018-04-04 MEDICATIONS Medication Instructions Dosage Frequency Start Date End Date Duration Status Cetirizine HCl 10 MG Orally Once a day 1 tablet 24h 30 day(s) Active Spironolactone 25 MG Orally Once a day 1 tablet 24h Mar, Jun, 30 day(s) Active Sertraline HCl 50 mg Orally Once a day 1 tablet 24h Feb, Active Embrace Blood Glucose Monitor - subcutaneously Once a day use to check BS 24h October, Active Neurontin 300 MG Orally Three times a day 1 capsule 8h Aug, 30 day(s) Active GlipiZIDE 10 mg Orally Once a day 1 tablet 24h October, 30 day(s) Active Albuterol Sulfate Active Aricept 5 mg Orally Once a day 1 tablet at bedtime 24h Jun, Active ProAir HFA Active RESULTS No Results PROCEDURES Procedure Date Ordered Result Body Site ADVNCD CARE PLAN 30 MIN Apr 04, 2018 INSTRUCTIONS MEDICATIONS ADMINISTERED No Known Medications MEDICAL [...]
--- OUTSIDE RECORDS SUMMARY | 2019-01-20 14:57 | XMS REPORT ---
Author Author HERMILO VERDUGO Organization [facility] Address [address] [place] [address] Care Team Providers Care Author Name Role Phone KARTIK HERMILO Unavailable PROBLEMS Type Condition ICD9-CM Code GSY31-KI Code Onset Dates Condition Status SNOMED Code Problem Moderate episode of recurrent major depressive disorder F33.1 Active 475453871 Problem Arthritis M19.90 Active 9316581 Problem Diabetic polyneuropathy associated with type 2 diabetes mellitus E11.42 Active 14673952 Problem Dementia in other diseases classified elsewhere with behavioral disturbance F02.81 Active 652440542 Problem Alzheimer''s disease, unspecified G30.9 Active 5531349349224 Problem Type 2 diabetes mellitus with hyperglycemia E11.65 Active [id number] Problem Major depressive disorder, recurrent, in full remission F33.42 Active 477551216 Problem Seasonal allergies J30.2 Active 101621897 Problem Type 2 diabetes mellitus with unspecified diabetic retinopathy without macular edema E11.319 Active 981783357 Problem Anxiety F41.9 Active 71531960 Problem Diabetes E11.9 Active 675541743 Problem Corns L84 Active 194116672 Problem Alzheimers disease with early onset G30.0 Active 4559128 Problem Flat foot [pes planus] (acquired), right foot M21.41 Active 34741142 Problem Uncontrolled type 2 diabetes mellitus without complication, without long- term current use of insulin E11.65 Active 454056607 ALLERGIES Substance Reaction Event Type Date Status SulfADIAZINE shortness of breath Drug Allergy Mar, Active Lisinopril hypotension Drug Allergy Mar, Active Cozaar hypotension Drug Allergy Mar, Active Aspirin Unknown Drug Allergy Mar, Active ENCOUNTERS Encounter Location Date Diagnosis [facility] [address] [facility] [id number] [address] Mar, [facility] [address] [facility] [id number], [place] [address] Mar, [facility] [id number] [place] [address] Mar, Diabetic polyneuropathy associated with type 2 diabetes mellitus E11.42 ; Pain of left foot M79.672 ; Pain in right foot M79.671 ; Alzheimer''s disease, unspecified G30.9 and Dementia in other diseases classified elsewhere with behavioral disturbance F02.81 [facility] [address] [place] [id number] [place] [address] Nov, Diabetes E11.9 and Seasonal allergies J30.2 [place] [address] [place] [id number] [place] [address] October, Type 2 diabetes mellitus with hyperglycemia E11.65 and Type 2 diabetes mellitus with unspecified diabetic retinopathy without macular edema E11.319 [place] [address] [place] [id number] [place] [address] October, Diabetes E11.9 ; Alzheimers disease with early onset G30.0 ; Arthritis M19.90 ; Diabetic polyneuropathy associated with type 2 diabetes mellitus E11.42 and Major depressive disorder, recurrent, in full remission F33.42 [place] [address] [place] [id number] [place] [address] Sep, [facility] [address] [place] [id number] [place] [address] Sep, Dysfunction of both eustachian tubes H69.83 [place] [address] [place] [id number] [place] [address] Aug, Alzheimer''s disease with early onset G30.0 ; Dementia in other diseases classified elsewhere with behavioral disturbance F02.81 ; 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 and Type 2 diabetes mellitus with hyperglycemia E11.65 [facility] [address] [id number] [place] [address] Jul, [place] [address] [place] [id number] [place] [address] Jul, Alzheimer''s disease with early onset G30.0 ; Dementia in other diseases classified elsewhere with behavioral disturbance F02.81 and Uncontrolled type 2 diabetes mellitus without complication, without long-term current use of insulin E11.[address] [address] May, Diabetes type 2, controlled E11.9 ; Bilateral otitis media with effusion H65.93 and Dizziness R42 [facility] [address] [address] Apr, Dysuria R30.0 and Acute cystitis with hematuria N30.[address] [address] 02 Apr, 2017 Moderate episode of recurrent major depressive disorder F33.1 [facility] [place] [address] [address] Mar, Acute cystitis without hematuria N30.[address] [address] 28 Feb, 2017 Uncontrolled type 2 diabetes mellitus without complication, without long-term current use of insulin E11.65 ; Other Alzheimer''s disease G30.8 and Dementia in other diseases classified elsewhere without behavioral disturbance F02.[address] [address] Jan, Diabetes type 2, controlled E11.9 and Alzheimers disease with early onset G30.0 [facility] [address] [address] Dec, Allergic contact dermatitis due to plants, except food L23.7 [facility] [place] [address] [address] Dec, Dysuria R30.0 and Candidiasis of female genitalia B37.[address] [address] Dec, Diabetes E11.9 and Alzheimers disease with early onset G30.0 [facility] [id number] [place] [address] Nov, Acute exacerbation of chronic obstructive pulmonary disease (COPD) J44.1 and Vaginal candidiasis B37.[address] [address] Nov, Controlled type 2 diabetes mellitus without complication, without long-term current use of insulin E11.9 and Other Alzheimers disease G30.[address] [address] October, OME (otitis media with effusion), bilateral H65.93 ; Dizziness R42 and Diabetes E11.9 [facility] [place] [address] [address] Sep, Vertigo R42 ; Heart murmur R01.1 and Dysfunction of inner ear, bilateral H83.[address] [address] Aug, Acute suppurative otitis media of both ears without spontaneous rupture of tympanic membranes, recurrence not specified H66.003 [facility] [place] [address] [address] Aug, Vaginal irritation N89.8 and Acute exacerbation of chronic obstructive pulmonary disease (COPD) J44.1 [place] [address] [address] Jul, Dementia in other diseases classified elsewhere without behavioral disturbance F02.80 [place] [address] [place] [id number] [place] [address] Jul, [address] [address] Jun, Diabetes type 2, controlled E11.9 ; Alzheimers disease with early onset G30.0 and Dementia in other diseases classified elsewhere without behavioral disturbance F02.80 [place] [address] [address] May, Diabetes type 2, controlled E11.9 [facility] [place] [address] [place] [id number] [place] [address] May, Vaginal candidiasis B37.3 and Dysuria R30.0 [facility] IN [place] [address] [address] May, Cutaneous abscess of head [any part, except face] L02.811 ; Cellulitis of head [any part, except face] L03.811 ; COPD exacerbation J44.1 and Wheezing R06.[address] [address] Apr, [place] [address] [address] Apr, Diabetes E11.9 ; Acute upper respiratory infection, unspecified J06.9 and Vagina, candidiasis B37.3 [facility] IN [place] [address] [address] Mar, Acute exacerbation of chronic obstructive pulmonary disease (COPD) J44.1 [place] [address] [address] Mar, Diabetes type 2, controlled E11.9 [facility] [place] [address] [id number] [place] [address] Feb, Acute bronchitis, unspecified organism J20.9 [place] [address] [place] [id number] [place] [address] Feb, Controlled type 2 diabetes mellitus without complication, without long-term current use of insulin E11.9 [place] [address] [address] Jan, Controlled type 2 diabetes mellitus without complication, without long-term current use of insulin E11.9 and Anxiety F41.9 [place] [address] [address] Dec, [facility] [address] [address] Nov, Diabetes type 2, controlled E11.9 [facility] [address] [place] [address] Nov, Acute pain of left shoulder M25.512 [facility] IN [facility] [address] [place] [address] October, Cellulitis of face L03.211 [facility] [address] [id number] [place] [address] October, Diabetes type 2, controlled E11.9 [place] [address] [place] [id number] [place] [address] October, Diabetes type 2, controlled E11.9 [place] [address] [place] [id number] [place] [address] Sep, Generalized anxiety disorder F41.1 ; Depression F32.9 and FH: memory loss Z82.0 [place] [address] [place] [address] Sep, FH: memory loss Z82.0 ; Major depression, recurrent F33.9 and Anxiety disorder, unspecified F41.9 [place] [address] [address] Aug, PTSD (post-traumatic stress disorder) F43.10 ; Generalized anxiety disorder F41.1 and FH: memory loss Z82.0 [facility] [address] [address] Aug, FH: memory loss Z82.0 ; Depression F32.9 and PTSD (post-traumatic stress disorder) F43.10 [place] [address] [address] Jul, Major depression, recurrent F33.9 ; Generalized anxiety disorder F41.1 and Alzheimer disease G30.9 [place] [address] [address] 29 Jul, 2015 Diabetes E11.9 and Mood disorder F39 [facility] [address] [place] [id number] [place] [address] 17 Jul, 2015 Dental examination Z01.20 [place] [address] [place] [id number] [place] [address] Apr, Exertional dyspnea R06.09 and Chronic obstructive pulmonary disease, unspecified COPD type J44.9 [place] [address] [place] [id number] [place] [address] Mar, [place] [address] [address] Mar, Diabetes E11.9 [place] [address] [place] [id number] [place] [address] Mar, Diabetes E11.9 ; COPD (chronic obstructive pulmonary disease) J44.9 and Hip pain, right M25.551 [place] [address] [place] [id number] [place] [address] Dec, [place] [id number] [place] [address] Nov, COPD exacerbation 491.21 and Wheezing 786.07 [place] [id number] [place] [address] October, Acute contact dermatitis 692.9 and Anhedonia 780.99 [place] [address] [place] [id number] [place] [address] October, [place] [address] [address] Sep, [place] [address] [place] [id number] [place] [address] Sep, [place] [address] [place] [id number] [place] [address] Aug, [facility] [place] [facility] [address] [id number] [place] [address] 30 Aug, 2014 [facility] [place] [facility] [address] [id number] [place] [address] Aug, 2014 [facility] [place] [facility] [address] [id number] [place] [address] Aug, 2014 [facility] [place] [facility] [address] [id number] [place] [address] Jul, 2014 [facility] [place] [facility] [address] [id number] [place] [address] Jul, 2014 [facility] [place] [facility] [address] [id number] [place] [address] Jul, 2014 [facility] [place] [facility] [address] [facility] [id number] [place] [address] Jul, 2014 [facility] [place] [facility] [address] [id number] [place] [address] Jul, 2014 [facility] [place] [facility] [address] [id number] [place] [address] Jul, 2014 [facility] [place] [facility] [address] [facility] [id number] [place] [address] May, [facility] [place] [facility] [address] [id number] [place] [address] May, [facility] [place] [facility] [address] [id number] [place] [address] May, [facility] [place] [facility] [address] [id number] [place] [address] May, [facility] [place] [facility] [address] [id number] [place] [address] May, [facility] [place] [facility] [address] [facility] [id number] [place] [address] May, [facility] [place] [facility] [address] [id number] [place] [address] Apr, [facility] [place] [facility] [address] [id number] [place] [address] Apr, [facility] [place] [facility] [address] [id number] [place] [address] Apr, [facility] [place] [facility] [address] [id number] [place] [address] Apr, [facility] [place] [facility] [address] [id number] [place] [address] Mar, [facility] [place] [facility] [address] [id number] [place] [address] Mar, [facility] [place] [facility] [address] [id number] [place] [address] Feb, [facility] [place] [facility] [address] [id number] [place] [address] Feb, [facility] [place] [facility] [address] [id number] [place] [address] Jan, [facility] [place] [facility] [address] [id number] [place] [address] Jan, [facility] [place] [facility] [address] [id number] [place] [address] Dec, [facility] [place] [facility] [address] [id number] [place] [address] Dec, [facility] [place] [facility] [address] [id number] [place] [address] October, [facility] [place] [facility] [address] [id number] [place] [address] October, [facility] [place] [facility] [address] [id number] [place] [address] October, [facility] [place] [facility] [address] [id number] [place] [address] October, [facility] [place] [facility] [address] [id number] [place] [address] October, [facility] [place] [facility] [address] [id number] [place] [address] October, [facility] [place] [facility] [address] [id number] [place] [address] Sep, [facility] [place] [facility] [address] [id number] [place] [address] Sep, [facility] [place] [facility] [address] [id number] [place] [address] Sep, [facility] [place] [facility] [address] [id number] [place] [address] Sep, [facility] [place] [facility] [address] [id number] [place] [address] Sep, [facility] [place] [facility] [address] [id number] [place] [address] Sep, [facility] [place] [facility] [address] [id number] [place] [address] Sep, [facility] [place] [facility] [address] [id number] [place] [address] Sep, [facility] [place] [facility] [address] [id number] [place] [address] 26 Aug, 2013 [facility] [place] [facility] [address] [id number] [place] [address] 14 Aug, 2013 [facility] [place] [facility] [address] [id number] [place] [address] 14 Aug, 2013 [facility] [place] [facility] [address] [id number] [place] [address] 13 Aug, 2013 [facility] [place] [facility] [address] [id number] [place] [address] 13 Aug, 2013 [facility] [place] [facility] [address] [id number] [address] Aug, [facility] [address] [id number] [place] [address] Jul, [facility] [place] [facility] [address] [id number] [place] [address] Jul, [facility] [place] [facility] [address] [facility] [id number] [place] [address] Jul, [facility] [place] [facility] [address] [id number] [place] [address] Jul, [facility] [address] [id number] [place] [address] May, [facility] [place] [facility] [address] [facility] [id number] [place] [address] May, [facility] [address] [facility] [id number] [place] [address] May, [facility] [place] [facility] [address] [facility] [id number] [place] [address] May, [facility] [place] [facility] [address] [facility] [id number] [place] [address] Apr, [facility] [place] [facility] [address] [facility] [id number] [place] [address] Apr, [facility] [place] [facility] [address] [facility] [id number] [place] [address] Apr, [facility] [place] [facility] [address] [id number], [place] [address] Apr, [facility] [place] [facility] [address] [id number] [place] [address] Apr, [facility] [place] [facility] [address] [facility] [id number] [place] [address] Apr, [facility] [place] [facility] [address] [facility] [id number], [place] [address] Apr, [facility] [place] [facility] [address] [id number] [place] [address] Apr, [facility] [address] [id number] [place] [address] Mar, [facility] [place] [facility] [address] [id number] [place] [address] Dec, [facility] [place] [facility] [address] [id number] [place] [address] Dec, [facility] [place] [facility] [address] [id number] [place] [address] Nov, [facility] [place] [facility] [address] [id number] [place] [address] Nov, [facility] [address] [id number] [place] [address] Nov, [facility] [address] [id number] [place] [address] Sep, [facility] [address] [id number] [place] [address] Aug, [facility] [address] [id number] [place] [address] Aug, [facility] [place] [facility] [address] [id number] [place] [address] Aug, [facility] [place] [facility] [address] [id number] [place] [address] Aug, [facility] [place] [facility] [address] [id number] [place] [address] Jul, [facility] [place] [facility] [address] [id number] [place] [address] Jul, [facility] [place] [facility] [address] [id number] [place] [address] May, [facility] [place] [facility] [address] [id number] [place] [address] May, [facility] [place] [facility] [address] [id number] [place] [address] May, [facility] [place] [facility] [address] [id number] [place] [address] Apr, [facility] [place] [facility] [address] [id number] [place] [address] Apr, [facility] [place] [facility] [address] [id number] [place] [address] Apr, [facility] [place] [facility] [address] [id number] [place] [address] Apr, [facility] [place] [facility] [address] [id number] [place] [address] Apr, [facility] [place] [facility] [address] [id number] [place] [address] Apr, [facility] [place] [facility] [address] [id number] [place] [address] Mar, [facility] [place] [facility] [address] [id number] [place] [address] Mar, [facility] [place] [facility] [address] [id number] [place] [address] Mar, [facility] [place] [facility] [address] [id number] [place] [address] 14 Feb, 2012 [facility] [place] [facility] [address] [id number] [place] [address] Feb, [facility] [place] [facility] [address] [id number] [place] [address] Feb, [facility] [place] [facility] [address] [id number] [place] [address] Jan, [facility] [place] [facility] [address] [id number] [place] [address] Jan, [facility] [place] [facility] [address] [id number] [place] [address] Jan, [facility] [address] [id number] [place] [address] Jan, [facility] [address] [id number] [place] [address] Dec, [facility] [address] [id number] [place] [address] Dec, [facility] [address] [id number] [place] [address] Nov, [facility] [address] [id number] [place] [address] Nov, [facility] [address] [id number] [place] [address] October, [facility] [address] [id number] [place] [address] October, [facility] [address] [id number] [place] [address] Sep, [facility] [address] [id number] [place] [address] Aug, [facility] [address] [id number] [place] [address] Aug, [facility] [address] [id number] [place] [address] Jul, [facility] [address] [id number] [place] [address] Jun, [facility] [place] [facility] [address] [id number] [place] [address] Jun, [facility] [address] [id number] [place] [address] Jun, [facility] [address] [id number] [place] [address] Jun, [facility] [address] [id number], [place] [address] May, [facility] [address] [id number], [place] [address] May, [facility] [address] [facility] [id number], [place] [address] Mar, [facility] [address] [id number], [place] [address] Mar, [facility] [address] [id number] [place] [address] Feb, [facility] [address] [facility] [id number], [place] [address] Dec, [facility] [address] [facility] [id number], [place] [address] Aug, [facility] [address] [facility] [id number], [place] [address] Aug, [facility] [address] [facility] [id number], [place] [address] May, [facility] [address] [facility] [id number][place] [address] Jan, [facility] [address] [facility] [id number], [place] [address] Apr, [facility] [address] [facility] [id number], [place] [address] Apr, [facility] [address] [facility] [id number], [place] [address] Jan, [facility] [address] [facility] [id number], [place] [address] Aug, IMMUNIZATIONS No Known Immunizations SOCIAL HISTORY Never Assessed REASON FOR VISIT Vidal - Manish COWAN, reports her alzhemiers have been worse, and she has been having soreness heal -Manish COWAN PLAN OF CARE Activity Details Follow Up 4 Weeks Reason:dementia VITAL SIGNS Height 64 in 2018-03-16 Weight 165.6 lbs 2018-03-16 Temperature 98.0 degrees Fahrenheit 2018-03-16 Heart Rate 81 bpm 2018-03-16 Respiratory Rate 20 2018-03-16 Oximetry 98 % 2018-03-16 BMI 28.42 kg/m2 2018-03-16 Blood pressure systolic 132 mmHg 2018-03-16 Blood pressure diastolic 70 mmHg 2018-03-16 MEDICATIONS Medication Instructions Dosage Frequency Start Date End Date Duration Status Sertraline HCl 50 mg Orally Once a day 1 tablet 24h Feb, Active Aricept 5 mg Orally Once a day 1 tablet at bedtime 24h Jun, Active GlipiZIDE 10 mg Orally Once a day 1 tablet 24h October, 30 day(s) Active ProAir HFA Active Embrace Blood Glucose Monitor - subcutaneously Once a day use to check BS 24h October, Active Cetirizine HCl 10 MG Orally Once a day 1 tablet 24h 30 day(s) Active Albuterol Sulfate Active Neurontin 300 MG Orally Three times a day 1 capsule 8h Aug, 30 day(s) Active RESULTS Name Result Date Reference Range A1C (IN HOUSE) 2018-03-16 A1C IN HOUSE 7.1 4.3 - 5.6 % Previous A1c 9.8 Lot [id number] Exp date 08/2019 PROCEDURES Procedure Date Ordered Result Body Site GLYCATED HEMOGLOBIN TEST Mar 16, 2018 [facility] [place] VISIT ESTABLISHED PATIENT Mar 16, 2018 INSTRUCTIONS MEDICATIONS ADMINISTERED No Known Medications [...]
[2019-01-20 14:58] VITALS: BP 146/76
--- OUTSIDE RECORDS SUMMARY | 2019-01-20 14:58 | XMS REPORT ---
Author Author HERMILO VERDUGO Organization [facility] [place] Address [address] [place] [address] Care Team Providers [facility] [employer] Name Role Phone KARTIK HERMILO Unavailable PROBLEMS Type Condition ICD9-CM Code ELW06-CN Code Onset Dates Condition Status SNOMED Code Problem Alzheimers disease with early onset G30.0 Active 8649577 Problem Moderate episode of recurrent major depressive disorder F33.1 Active 870552342 Problem Uncontrolled type 2 diabetes mellitus without complication, without long- term current use of insulin E11.65 Active 840074603 Problem Corns L84 Active 411814670 Problem Flat foot [pes planus] (acquired), right foot M21.41 Active 92094188 Problem Anxiety F41.9 Active 63432881 Problem Diabetes E11.9 Active 294169441 Problem Seasonal allergies J30.2 Active 843448834 Problem Type 2 diabetes mellitus with unspecified diabetic retinopathy without macular edema E11.319 Active 251589018 Problem Diabetic polyneuropathy associated with type 2 diabetes mellitus E11.42 Active 03570419 Problem Arthritis M19.90 Active 2549561 Problem Type 2 diabetes mellitus with hyperglycemia E11.65 Active [id number] Problem Major depressive disorder, recurrent, in full remission F33.42 Active 997186040 ALLERGIES No Information ENCOUNTERS Encounter Location Date Diagnosis [facility] [address] [facility] [id number] [address] Nov, Diabetes E11.9 and Seasonal allergies J30.2 [facility] [place] [address] [facility] [id number], [place] [address] October, Type 2 diabetes mellitus with hyperglycemia E11.65 and Type 2 diabetes mellitus with unspecified diabetic retinopathy without macular edema E11.319 [facility] [place] [address] [facility] [id number], [place] [address] October, Diabetes E11.9 ; Alzheimers disease with early onset G30.0 ; Arthritis M19.90 ; Diabetic polyneuropathy associated with type 2 diabetes mellitus E11.42 and Major depressive disorder, recurrent, in full remission F33.[address] [address] Sep, [place] [id number] [place] [address] Sep, Dysfunction of both eustachian tubes H69.[address] [address] Aug, Alzheimer''s disease with early onset G30.0 ; Dementia in other diseases classified elsewhere with behavioral disturbance F02.81 ; 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 and Type 2 diabetes mellitus with hyperglycemia E11.[address] [address] Jul, [address] [address] Jul, Alzheimer''s disease with early onset G30.0 ; Dementia in other diseases classified elsewhere with behavioral disturbance F02.81 and Uncontrolled type 2 diabetes mellitus without complication, without long-term current use of insulin E11.65 [place] [id number] [place] [address] May, Diabetes type 2, controlled E11.9 ; Bilateral otitis media with effusion H65.93 and Dizziness R42 [facility] [address] [place] [id number] [place] [address] Apr, Dysuria R30.0 and Acute cystitis with hematuria N30.[address] [address] 02 Apr, 2017 Moderate episode of recurrent major depressive disorder F33.1 [facility] [address] [place] [id number] [place] [address] Mar, Acute cystitis without hematuria N30.[id number] [place] [address] Feb, Uncontrolled type 2 diabetes mellitus without complication, without long-term current use of insulin E11.65 ; Other Alzheimer''s disease G30.8 and Dementia in other diseases classified elsewhere without behavioral disturbance F02.[address] [address] Jan, Diabetes type 2, controlled E11.9 and Alzheimers disease with early onset G30.0 [facility] [address] [address] Dec, Allergic contact dermatitis due to plants, except food L23.7 [facility] [address] [address] Dec, Dysuria R30.0 and Candidiasis of female genitalia B37.[address] [address] Dec, Diabetes E11.9 and Alzheimers disease with early onset G30.0 [facility] [address] [address] Nov, Acute exacerbation of chronic obstructive pulmonary disease (COPD) J44.1 and Vaginal candidiasis B37.[address] [address] Nov, Controlled type 2 diabetes mellitus without complication, without long-term current use of insulin E11.9 and Other Alzheimers disease G30.8 [place] [id number] [place] [address] October, OME (otitis media with effusion), bilateral H65.93 ; Dizziness R42 and Diabetes E11.9 [facility] [address] [address] Sep, Vertigo R42 ; Heart murmur R01.1 and Dysfunction of inner ear, bilateral 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.[address] [place] [address] Aug, Acute suppurative otitis media of both ears without spontaneous rupture of tympanic membranes, recurrence not specified H66.003 [facility] [address] [address] Aug, Vaginal irritation N89.8 and Acute exacerbation of chronic obstructive pulmonary disease (COPD) J44.[address] [address] Jul, Dementia in other diseases classified elsewhere without behavioral disturbance F02.[address] [address] Jul, [address] [address] Jun, Diabetes type 2, controlled E11.9 ; Alzheimers disease with early onset G30.0 and Dementia in other diseases classified elsewhere without behavioral disturbance F02.[address] [address] May, Diabetes type 2, controlled E11.9 [facility] [address] [address] May, Vaginal candidiasis B37.3 and Dysuria R30.0 [facility] [address] [address] 05 May, 2016 Cutaneous abscess of head [any part, except face] L02.811 ; Cellulitis of head [any part, except face] L03.811 ; COPD exacerbation J44.1 and Wheezing R06.[address] [address] Apr, [address] [address] Apr, Diabetes E11.9 ; Acute upper respiratory infection, unspecified J06.9 and Vagina, candidiasis B37.3 [facility] [id number] [address] Mar, Acute exacerbation of chronic obstructive pulmonary disease (COPD) J44.1 [facility] [place] [address] [place] [id number] [place] [address] Mar, Diabetes type 2, controlled E11.9 [facility] [address] [place] [id number] [place] [address] Feb, Acute bronchitis, unspecified organism J20.9 [facility] [place] [address] [place] [id number] [place] [address] Feb, Controlled type 2 diabetes mellitus without complication, without long-term current use of insulin E11.9 [place] [address] [place] [id number] [place] [address] Jan, Controlled type 2 diabetes mellitus without complication, without long-term current use of insulin E11.9 and Anxiety F41.9 [place] [address] [place] [id number] [place] [address] Dec, [facility] [place] [address] [place] [id number] [place] [address] Nov, Diabetes type 2, controlled E11.9 [place] [address] [place] [id number] [place] [address] Nov, Acute pain of left shoulder M25.512 [facility] [address] [place] [id number] [place] [address] October, Cellulitis of face L03.211 [facility] [place] [address] [place] [id number] [place] [address] October, Diabetes type 2, controlled E11.9 [facility] [place] [address] [place] [id number] [place] [address] October, Diabetes type 2, controlled E11.9 [facility] [place] [id number] [place] [address] Sep, Generalized anxiety disorder F41.1 ; Depression F32.9 and FH: memory loss Z82.0 [facility] [place] [address] [place] [id number] [place] [address] Sep, FH: memory loss Z82.0 ; Major depression, recurrent F33.9 and Anxiety disorder, unspecified F41.9 [facility] [place] [address] [place] [id number] [place] [address] Aug, PTSD (post-traumatic stress disorder) F43.10 ; Generalized anxiety disorder F41.1 and FH: memory loss Z82.0 [place] [address] [place] [id number] [place] [address] Aug, FH: memory loss Z82.0 ; Depression F32.9 and PTSD (post-traumatic stress disorder) F43.10 [place] [address] [place] [id number] [place] [address] Jul, Major depression, recurrent F33.9 ; Generalized anxiety disorder F41.1 and Alzheimer disease G30.9 [place] [address] [place] [id number] [place] [address] Jul, Diabetes E11.9 and Mood disorder F39 [place] [address] [place] [id number] [place] [address] Jul, Dental examination Z01.20 [place] [address] [place] [id number] [place] [address] Apr, Exertional dyspnea R06.09 and Chronic obstructive pulmonary disease, unspecified COPD type J44.9 [facility] [place] [address] [place] [id number] [place] [address] Mar, [place] [address] [place] [id number] [place] [address] Mar, Diabetes E11.9 [facility] [place] [address] [place] [id number] [place] [address] Mar, Diabetes E11.9 ; COPD (chronic obstructive pulmonary disease) J44.9 and Hip pain, right M25.551 [facility] [place] [address] [id number] [address] Dec, [facility] [place] [address] [place] [id number] [place] [address] Nov, COPD exacerbation 491.21 and Wheezing 786.07 [facility] [place] [address] [place] [id number] [place] [address] October, Acute contact dermatitis 692.9 and Anhedonia 780.99 [facility] [place] [address] [place] [id number] [place] [address] October, [facility] [place] [address] [place] [id number] [place] [address] Sep, [facility] [place] [address] [place] [id number] [place] [address] Sep, [facility] [place] [address] [place] [id number] [place] [address] Aug, [facility] [place] [id number] [place] [address] Aug, [facility] [place] [address] [place] [id number] [place] [address] Aug, [facility] [place] [address] [address] Aug, [facility] [place] [address] [place] [id number] [place] [address] Jul, [facility] [place] [address] [address] Jul, [facility] [place] [address] [place] [id number] [place] [address] Jul, [facility] [place] [address] [address] Jul, [facility] [place] [address] [place] [id number] [place] [address] Jul, 2014 [facility] [address] [id number] [place] [address] Jul, [facility] [place] [facility] [address] [id number] [place] [address] May, [facility] [place] [facility] [address] [id number] [place] [address] May, [facility] [place] [facility] [address] [id number] [place] [address] May, [facility] [place] [facility] [address] [id number] [place] [address] May, [facility] [place] [facility] [address] [id number] [place] [address] May, [facility] [place] [facility] [address] [facility] [id number] [place] [address] May, [facility] [place] [facility] [address] [id number] [place] [address] Apr, [facility] [place] [facility] [address] [id number] [place] [address] Apr, [facility] [place] [facility] [address] [facility] [id number] [place] [address] Apr, [facility] [place] [facility] [address] [id number] [place] [address] Apr, [facility] [place] [facility] [address] [id number] [place] [address] Mar, [facility] [place] [facility] [address] [id number] [place] [address] Mar, [facility] [place] [facility] [address] [facility] [id number] [place] [address] Feb, [facility] [place] [facility] [address] [id number] [place] [address] Feb, [facility] [place] [facility] [address] [id number] [place] [address] Jan, [facility] [place] [facility] [address] [id number] [place] [address] Jan, [facility] [place] [facility] [address] [id number] [place] [address] Dec, [facility] [place] [facility] [address] [id number] [place] [address] Dec, [facility] [place] [facility] [address] [id number] [place] [address] October, [facility] [place] [facility] [address] [id number] [place] [address] October, [facility] [place] [facility] [address] [id number] [place] [address] October, [facility] [place] [facility] [address] [id number] [place] [address] October, [facility] [place] [facility] [address] [id number] [place] [address] October, [facility] [place] [facility] [address] [id number] [place] [address] October, [facility] [place] [facility] [address] [id number] [place] [address] Sep, [facility] [place] [facility] [address] [id number] [place] [address] Sep, [facility] [place] [facility] [address] [id number] [place] [address] Sep, [facility] [place] [facility] [address] [id number] [place] [address] Sep, [facility] [place] [facility] [address] [id number] [place] [address] Sep, [facility] [place] [facility] [address] [id number], [place] [address] 10 Sep, 2013 [facility] [place] [facility] [address] [id number] [place] [address] 08 Sep, 2013 [facility] [place] [facility] [address] [id number] [place] [address] 08 Sep, 2013 [facility] [place] [facility] [address] [id number] [place] [address] 26 Aug, 2013 [facility] [place] [facility] [address] [id number] [place] [address] 14 Aug, 2013 [facility] [place] [facility] [address] [id number] [place] [address] 14 Aug, 2013 [facility] [place] [facility] [address] [id number] [place] [address] 13 Aug, 2013 [facility] [place] [facility] [address] [facility] [id number] [place] [address] Aug, [facility] [place] [facility] [address] [facility] [id number] [place] [address] Aug, [facility] [place] [facility] [address] [facility] [id number] [place] [address] 24 Jul, 2013 [facility] [place] [facility] [address] [facility] [id number] [place] [address] Jul, [facility] [place] [facility] [address] [facility] [id number] [place] [address] Jul, [facility] [place] [facility] [address] [facility] [id number] [place] [address] Jul, [facility] [place] [facility] [address] [id number] [place] [address] May, [facility] [place] [facility] [address] [id number] [place] [address] May, [facility] [place] [facility] [address] [facility] [id number] [place] [address] May, [facility] [place] [facility] [address] [id number] [place] [address] May, [facility] [place] [facility] [address] [id number] [place] [address] Apr, [facility] [place] [facility] [address] [id number] [place] [address] Apr, [facility] [place] [facility] [address] [id number] [place] [address] Apr, [facility] [place] [facility] [address] [id number] [place] [address] Apr, [facility] [place] [facility] [address] [id number] [place] [address] Apr, [facility] [place] [facility] [address] [id number] [place] [address] Apr, [facility] [place] [facility] [address] [id number] [place] [address] Apr, [facility] [place] [facility] [address] [id number] [place] [address] Apr, [facility] [place] [facility] [address] [id number] [place] [address] Mar, [facility] [place] [facility] [address] [id number] [place] [address] Dec, [facility] [place] [facility] [address] [id number] [place] [address] Dec, [facility] [place] [facility] [address] [id number] [place] [address] Nov, [facility] [place] [facility] [address] [id number] [place] [address] Nov, [facility] [place] [facility] [address] [id number] [place] [address] Nov, [facility] [place] [facility] [address] [id number], [place] [address] Sep, [facility] [address] [id number] [place] [address] Aug, [facility] [place] [facility] [address] [id number] [place] [address] Aug, [facility] [place] [facility] [address] [id number] [place] [address] Aug, [facility] [place] [facility] [address] [id number] [place] [address] Aug, [facility] [place] [facility] [address] [id number] [place] [address] Jul, [facility] [place] [facility] [address] [id number] [place] [address] Jul, [facility] [address] [id number] [place] [address] May, [facility] [place] [facility] [address] [id number] [place] [address] May, [facility] [place] [facility] [address] [id number] [place] [address] May, [facility] [place] [facility] [address] [id number] [place] [address] Apr, [facility] [place] [facility] [address] [id number] [place] [address] Apr, [facility] [place] [facility] [address] [id number] [place] [address] Apr, [facility] [place] [facility] [address] [id number] [place] [address] Apr, [facility] [place] [facility] [address] [id number] [place] [address] Apr, [facility] [place] [facility] [address] [id number] [place] [address] Apr, [facility] [place] [facility] [address] [id number] [place] [address] Mar, [facility] [place] [facility] [address] [id number] [place] [address] Mar, [facility] [place] [facility] [address] [id number] [place] [address] Mar, [facility] [place] [facility] [address] [id number] [place] [address] 14 Feb, 2012 [facility] [place] [facility] [address] [id number] [place] [address] Feb, [facility] [place] [facility] [address] [id number] [place] [address] Feb, [facility] [place] [facility] [address] [id number] [place] [address] Jan, [facility] [place] [facility] [address] [id number] [place] [address] Jan, [facility] [place] [facility] [address] [id number] [place] [address] Jan, [facility] [place] [facility] [address] [id number] [place] [address] Jan, [facility] [place] [facility] [address] [id number] [place] [address] Dec, [facility] [place] [facility] [address] [id number] [place] [address] Dec, [facility] [place] [facility] [address] [id number] [place] [address] Nov, [facility] [place] [facility] [address] [id number] [place] [address] Nov, [facility] [place] [facility] [address] [id number] [place] [address] October, [facility] [place] [facility] [address] [id number] [place] [address] October, [facility] [address] [id number] [place] [address] Sep, [facility] [place] [facility] [address] [id number] [place] [address] Aug, [facility] [place] [facility] [address] [id number] [place] [address] Aug, [facility] [place] [facility] [address] [id number] [place] [address] Jul, [facility] [place] [facility] [address] [id number] [place] [address] Jun, [facility] [place] [facility] [address] [id number] [place] [address] Jun, [facility] [place] [facility] [address] [id number] [place] [address] Jun, [facility] [place] [facility] [address] [id number] [place] [address] Jun, [facility] [place] [facility] [address] [id number] [place] [address] May, [facility] [place] [facility] [address] [id number] [place] [address] May, [facility] [place] [facility] [address] [id number] [place] [address] Mar, [facility] [place] [facility] [address] [id number], [place] [address] Mar, [facility] [place] [facility] [address] [id number] [place] [address] Feb, [facility] [place] [facility] [address] [id number], [place] [address] Dec, [facility] [place] [facility] [address] [id number] [place] [address] Aug, [facility] [place] [facility] [address] [facility] [id number], [place] [address] 16 Aug, 2010 [facility] [place] [address] [id number] [address] May, [facility] [place] [address] [id number], [place] [address] Jan, [facility] [place] [address] [id number], [place] [address] Apr, [facility] [place] [id number], [place] [address] Apr, [facility] [place] [address] [id number], [place] [address] Jan, [facility] [place] [address] [id number], [place] [address] Aug, IMMUNIZATIONS No Known Immunizations SOCIAL HISTORY Never Assessed REASON FOR VISIT needing letter for glucometer PLAN OF CARE VITAL SIGNS MEDICATIONS No Known Medications RESULTS No Results PROCEDURES No Known [...]
--- OUTSIDE RECORDS SUMMARY | 2019-01-20 14:58 | XMS REPORT ---
Author Author PRICILLA LAM [facility] WALK IN [facility] Address [address] [place] [address] Care Team Providers Care Solicitor Patent Name Role Phone PRICILLA LAM Unavailable PROBLEMS Type Condition ICD9-CM Code VPF36-DM Code Onset Dates Condition Status SNOMED Code Problem Alzheimers disease with early onset G30.0 Active 9405087 Problem Moderate episode of recurrent major depressive disorder F33.1 Active 182878812 Problem Uncontrolled type 2 diabetes mellitus without complication, without long- term current use of insulin E11.65 Active 193636809 Problem Corns L84 Active 437863615 Problem Flat foot [pes planus] (acquired), right foot M21.41 Active 44756603 Problem Anxiety F41.9 Active 43753572 Problem Diabetes E11.9 Active 062713783 Problem Seasonal allergies J30.2 Active 362292235 Problem Type 2 diabetes mellitus with unspecified diabetic retinopathy without macular edema E11.319 Active 038182022 Problem Diabetic polyneuropathy associated with type 2 diabetes mellitus E11.42 Active 91980001 Problem Arthritis M19.90 Active 6614697 Problem Type 2 diabetes mellitus with hyperglycemia E11.65 Active [id number] Problem Major depressive disorder, recurrent, in full remission F33.42 Active 038413600 ALLERGIES Substance Reaction Event Type Date Status SulfADIAZINE shortness of breath Drug Allergy Nov, Active Lisinopril hypotension Drug Allergy Nov, Active Cozaar hypotension Drug Allergy Nov, Active Aspirin Unknown Drug Allergy Nov, Active ENCOUNTERS Encounter Location Date Diagnosis [facility] [address] [facility] [id number] [address] Nov, Diabetes E11.9 and Seasonal allergies J30.2 [facility] [address] [facility] [id number] [address] October, Type 2 diabetes mellitus with hyperglycemia E11.65 and Type 2 diabetes mellitus with unspecified diabetic retinopathy without macular edema E11.319 [place] [address] [place] [id number] [place] [address] October, Diabetes E11.9 ; Alzheimers disease with early onset G30.0 ; Arthritis M19.90 ; Diabetic polyneuropathy associated with type 2 diabetes mellitus E11.42 and Major depressive disorder, recurrent, in full remission F33.42 [place] [address] [address] Sep, [place] [address] [place] [id number] [place] [address] Sep, Dysfunction of both eustachian tubes H69.83 [place] [id number] [place] [address] Aug, Alzheimer''s disease with early onset G30.0 ; Dementia in other diseases classified elsewhere with behavioral disturbance F02.81 ; 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 and Type 2 diabetes mellitus with hyperglycemia E11.65 [place] [address] [id number] [place] [address] Jul, [place] [id number] [place] [address] Jul, Alzheimer''s disease with early onset G30.0 ; Dementia in other diseases classified elsewhere with behavioral disturbance F02.81 and Uncontrolled type 2 diabetes mellitus without complication, without long-term current use of insulin E11.65 [place] [address] [id number] [place] [address] May, Diabetes type 2, controlled E11.9 ; Bilateral otitis media with effusion H65.93 and Dizziness R42 [facility] [address] [place] [id number] [place] [address] Apr, Dysuria R30.0 and Acute cystitis with hematuria N30.01 [place] [id number] [place] [address] Apr, Moderate episode of recurrent major depressive disorder F33.1 [facility] [place] [id number] [place] [address] Mar, Acute cystitis without hematuria N30.00 [place] [address] [address] Feb, Uncontrolled type 2 diabetes mellitus without complication, without long-term current use of insulin E11.65 ; Other Alzheimer''s disease G30.8 and Dementia in other diseases classified elsewhere without behavioral disturbance F02.80 [place] [address] [address] Jan, Diabetes type 2, controlled E11.9 and Alzheimers disease with early onset G30.0 [facility] WALK IN [address] [address] Dec, Allergic contact dermatitis due to plants, except food L23.7 [facility] WALK IN [address] [address] Dec, Dysuria R30.0 and Candidiasis of female genitalia B37.[address] [address] Dec, Diabetes E11.9 and Alzheimers disease with early onset G30.0 [facility] WALK IN [place] [id number] [place] [address] Nov, Acute exacerbation of chronic obstructive pulmonary disease (COPD) J44.1 and Vaginal candidiasis B37.3 [place] [id number] [place] [address] Nov, Controlled type 2 diabetes mellitus without complication, without long-term current use of insulin E11.9 and Other Alzheimers disease G30.8 [place] [id number] [place] [address] October, OME (otitis media with effusion), bilateral H65.93 ; Dizziness R42 and Diabetes E11.9 [facility] WALK IN [id number] [place] [address] Sep, Vertigo R42 ; Heart murmur R01.1 and Dysfunction of inner ear, bilateral H83.[address] [address] Aug, Acute suppurative otitis media of both ears without spontaneous rupture of tympanic membranes, recurrence not specified H66.003 [facility] WALK IN [address] [address] Aug, Vaginal irritation N89.8 and Acute exacerbation of chronic obstructive pulmonary disease (COPD) J44.[address] [address] Jul, Dementia in other diseases classified elsewhere without behavioral disturbance F02.[address] [address] Jul, [address] [address] Jun, Diabetes type 2, controlled E11.9 ; Alzheimers disease with early onset G30.0 and Dementia in other diseases classified elsewhere without behavioral disturbance F02.80 [place] [id number] [place] [address] May, Diabetes type 2, controlled E11.9 [facility] WALK IN [address] [address] May, Vaginal candidiasis B37.3 and Dysuria R30.0 [facility] WALK IN [address] [address] 05 May, 2016 Cutaneous abscess of head [any part, except face] L02.811 ; Cellulitis of head [any part, except face] L03.811 ; COPD exacerbation J44.1 and Wheezing R06.[address] [address] Apr, [place] [address] [id number] [place] [address] Apr, Diabetes E11.9 ; Acute upper respiratory infection, unspecified J06.9 and Vagina, candidiasis B37.3 [facility] WALK IN [place] [address] [place] [id number] [place] [address] Mar, Acute exacerbation of chronic obstructive pulmonary disease (COPD) J44.1 [place] [address] [address] Mar, Diabetes type 2, controlled E11.9 [facility] WALK IN [place] [address] [address] Feb, Acute bronchitis, unspecified organism J20.9 [place] [address] [address] Feb, Controlled type 2 diabetes mellitus without complication, without long-term current use of insulin E11.9 [place] [address] [place] [id number] [place] [address] Jan, Controlled type 2 diabetes mellitus without complication, without long-term current use of insulin E11.9 and Anxiety F41.9 [place] [address] [place] [id number] [place] [address] Dec, [place] [address] [place] [id number] [place] [address] Nov, Diabetes type 2, controlled E11.9 [place] [address] [place] [id number] [place] [address] Nov, Acute pain of left shoulder M25.512 [facility] WALK IN [place] [address] [address] October, Cellulitis of face L03.211 [place] [address] [place] [id number] [place] [address] October, Diabetes type 2, controlled E11.9 [place] [address] [place] [address] October, Diabetes type 2, controlled E11.9 [place] [address] [place] [id number] [place] [address] Sep, Generalized anxiety disorder F41.1 ; Depression F32.9 and FH: memory loss Z82.0 [place] [address] [address] Sep, FH: memory loss Z82.0 ; Major depression, recurrent F33.9 and Anxiety disorder, unspecified F41.9 [place] [address] [place] [id number] [place] [address] Aug, PTSD (post-traumatic stress disorder) F43.10 ; Generalized anxiety disorder F41.1 and FH: memory loss Z82.0 [place] [address] [address] Aug, FH: memory loss Z82.0 ; Depression F32.9 and PTSD (post-traumatic stress disorder) F43.10 [place] [address] [place] [id number] [place] [address] Jul, Major depression, recurrent F33.9 ; Generalized anxiety disorder F41.1 and Alzheimer disease G30.9 [place] [address] [place] [id number] [place] [address] Jul, Diabetes E11.9 and Mood disorder F39 [place] [address] [place] [id number] [place] [address] Jul, Dental examination Z01.20 [place] [address] [place] [id number] [place] [address] 18 Apr, 2015 Exertional dyspnea R06.09 and Chronic obstructive pulmonary disease, unspecified COPD type J44.9 [place] [address] [place] [id number] [place] [address] 15 Mar, 2015 [place] [address] [address] Mar, Diabetes E11.9 [facility] [address] [place] [id number] [place] [address] Mar, Diabetes E11.9 ; COPD (chronic obstructive pulmonary disease) J44.9 and Hip pain, right M25.551 [facility] [address] [place] [id number] [place] [address] Dec, [facility] [address] [place] [id number] [place] [address] Nov, COPD exacerbation 491.21 and Wheezing 786.07 [facility] [address] [address] October, Acute contact dermatitis 692.9 and Anhedonia 780.99 [facility] [address] [place] [id number] [place] [address] October, [facility] [address] [place] [id number] [place] [address] Sep, [facility] [address] [place] [id number] [place] [address] Sep, [facility] [address] [place] [id number] [place] [address] Aug, [facility] [address] [address] Aug, [facility] [address] [place] [id number] [place] [address] Aug, [facility] [id number] [place] [address] Aug, [facility] [address] [place] [id number] [place] [address] Jul, [facility] [address] [address] Jul, [facility] [address] [place] [id number] [place] [address] [place] [address] Jul, 2014 [facility] [place] [facility] [address] [id number] [place] [address] Jul, 2014 [facility] [place] [facility] [address] [id number] [place] [address] Jul, 2014 [facility] [place] [facility] [address] [id number] [place] [address] Jul, 2014 [facility] [place] [facility] [address] [id number] [place] [address] May, [facility] [place] [facility] [address] [id number] [place] [address] May, [facility] [place] [facility] [address] [id number] [place] [address] May, [facility] [place] [facility] [address] [id number] [place] [address] May, [facility] [place] [facility] [address] [id number] [place] [address] May, [facility] [place] [facility] [address] [id number] [place] [address] May, [facility] [place] [facility] [address] [facility] [id number] [place] [address] Apr, [facility] [place] [facility] [address] [id number] [place] [address] Apr, [facility] [place] [facility] [address] [id number] [place] [address] Apr, [facility] [place] [facility] [address] [id number] [place] [address] Apr, [facility] [place] [facility] [address] [id number] [place] [address] Mar, [facility] [place] [facility] [address] [id number] [place] [address] Mar, [facility] [place] [facility] [address] [id number] [place] [address] Feb, [facility] [place] [facility] [address] [id number] [place] [address] Feb, [facility] [place] [facility] [address] [id number] [place] [address] Jan, [facility] [place] [facility] [address] [id number] [place] [address] Jan, [facility] [place] [facility] [address] [id number] [place] [address] Dec, [facility] [place] [facility] [address] [id number] [place] [address] Dec, [facility] [place] [facility] [address] [id number] [place] [address] October, [facility] [place] [facility] [address] [id number] [place] [address] October, [facility] [place] [facility] [address] [id number] [place] [address] October, [facility] [place] [facility] [address] [id number] [place] [address] October, [facility] [place] [facility] [address] [id number] [place] [address] October, [facility] [place] [facility] [address] [id number] [place] [address] October, [facility] [place] [facility] [address] [id number] [place] [address] Sep, [facility] [place] [facility] [address] [id number] [place] [address] Sep, [facility] [place] [facility] [address] [id number] [place] [address] Sep, [facility] [place] [facility] [address] [id number] [place] [address] 18 Sep, 2013 [facility] [place] [facility] [address] [id number] [place] [address] Sep, [facility] [place] [facility] [address] [id number] [place] [address] Sep, [facility] [place] [facility] [address] [id number] [place] [address] Sep, [facility] [place] [facility] [address] [id number] [place] [address] Sep, [facility] [place] [facility] [address] [id number] [place] [address] Aug, [facility] [place] [facility] [address] [id number] [place] [address] Aug, [facility] [place] [facility] [address] [id number] [place] [address] 14 Aug, 2013 [facility] [place] [facility] [address] [id number] [place] [address] Aug, [facility] [place] [facility] [address] [id number] [place] [address] Aug, [facility] [place] [facility] [address] [facility] [id number] [place] [address] Aug, [facility] [place] [facility] [address] [id number] [place] [address] Jul, [facility] [place] [facility] [address] [id number] [place] [address] Jul, [facility] [place] [facility] [address] [id number] [place] [address] Jul, [facility] [place] [facility] [address] [id number] [place] [address] Jul, [facility] [place] [facility] [address] [facility] [id number] [place] [address] May, [facility] [place] [facility] [address] [id number] [place] [address] May, [facility] [place] [facility] [address] [id number] [place] [address] May, [facility] [place] [facility] [address] [id number] [place] [address] May, [facility] [place] [facility] [address] [id number] [place] [address] Apr, [facility] [place] [facility] [address] [id number] [place] [address] Apr, [facility] [place] [facility] [address] [id number] [place] [address] Apr, [facility] [place] [facility] [address] [id number] [place] [address] Apr, [facility] [place] [facility] [address] [id number] [place] [address] Apr, [facility] [place] [facility] [address] [id number] [place] [address] Apr, [facility] [place] [facility] [address] [id number] [place] [address] Apr, [facility] [place] [facility] [address] [id number] [place] [address] Apr, [facility] [place] [facility] [address] [id number] [place] [address] Mar, [facility] [place] [facility] [address] [id number] [place] [address] Dec, [facility] [place] [facility] [address] [id number] [place] [address] Dec, [facility] [place] [facility] [address] [id number] [place] [address] Nov, [facility] [place] [facility] [address] [id number] [place] [address] Nov, [facility] [place] [facility] [address] [id number] [place] [address] Nov, [facility] [place] [facility] [address] [id number] [place] [address] Sep, [facility] [place] [facility] [address] [facility] [id number] [place] [address] Aug, [facility] [place] [facility] [address] [id number] [place] [address] Aug, [facility] [place] [facility] [address] [id number] [place] [address] Aug, [facility] [place] [facility] [address] [id number] [place] [address] Aug, [facility] [place] [facility] [address] [facility] [id number] [place] [address] Jul, [facility] [place] [facility] [address] [id number] [place] [address] Jul, [facility] [place] [facility] [address] [id number] [place] [address] May, [facility] [place] [facility] [address] [id number] [place] [address] May, [facility] [place] [facility] [address] [facility] [id number] [place] [address] May, [facility] [place] [facility] [address] [id number], [place] [address] Apr, [facility] [place] [facility] [address] [id number] [place] [address] Apr, [facility] [place] [facility] [address] [facility] [id number] [place] [address] Apr, [facility] [place] [facility] [address] [facility] [id number] [place] [address] Apr, [facility] [place] [facility] [address] [id number] [place] [address] Apr, [facility] [place] [facility] [address] [id number] [place] [address] Apr, [facility] [place] [facility] [address] [id number] [place] [address] Mar, [facility] [place] [facility] [address] [id number] [place] [address] Mar, [facility] [place] [facility] [address] [id number] [place] [address] Mar, [facility] [place] [facility] [address] [id number] [place] [address] 14 Feb, 2012 [facility] [place] [facility] [address] [id number] [place] [address] Feb, [facility] [place] [facility] [address] [id number] [place] [address] Feb, [facility] [place] [facility] [address] [id number] [place] [address] Jan, [facility] [place] [facility] [address] [id number] [place] [address] Jan, [facility] [place] [facility] [address] [facility] [id number] [place] [address] Jan, [facility] [place] [facility] [address] [id number] [place] [address] Jan, [facility] [place] [facility] [address] [id number] [place] [address] Dec, [facility] [place] [facility] [address] [id number] [place] [address] Dec, [facility] [place] [facility] [address] [id number] [place] [address] Nov, [facility] [place] [facility] [address] [id number] [place] [address] Nov, [facility] [address] [id number] [place] [address] October, [facility] [place] [facility] [address] [id number] [place] [address] October, [facility] [place] [facility] [address] [id number] [place] [address] Sep, [facility] [place] [facility] [address] [id number] [place] [address] Aug, [facility] [place] [facility] [address] [id number] [place] [address] Aug, [facility] [place] [facility] [address] [id number] [place] [address] Jul, [facility] [place] [facility] [address] [id number] [place] [address] Jun, [facility] [place] [facility] [address] [id number], [place] [address] Jun, [facility] [place] [facility] [address] [id number] [place] [address] Jun, [facility] [place] [facility] [address] [facility] [id number], [place] [address] Jun, [facility] [place] [facility] [address] [id number], [place] [address] May, [facility] [place] [facility] [address] [id number], [place] [address] May, [facility] [place] [facility] [address] [id number], [place] [address] Mar, [facility] [place] [facility] [address] [id number], [place] [address] Mar, [facility] [place] [facility] [address] [facility] [id number], [place] [address] Feb, [facility] [place] [facility] [address] [id number], [place] [address] Dec, [facility] [address] [id number], [place] [address] 18 Aug, 2010 [facility] [id number] [address] 16 Aug, 2010 [facility] [id number], [place] [address] May, [facility] [id number], [place] [address] Jan, [facility] [id number], [place] [address] Apr, [facility] [id number], [place] [address] Apr, [facility] [id number], [place] [address] Jan, [facility] [id number], [place] [address] Aug, IMMUNIZATIONS No Known Immunizations SOCIAL HISTORY Never Assessed REASON FOR VISIT Body ache and flu started this morning [employer] PLAN OF CARE Activity Details Follow Up prn Reason: VITAL SIGNS Height 64 in 2017-11-27 Weight 170.2 lbs 2017-11-27 Temperature 98.0 degrees Fahrenheit 2017-11-27 Heart Rate 84 bpm 2017-11-27 Respiratory Rate 20 2017-11-27 BMI 29.21 kg/m2 2017-11-27 Blood pressure systolic 126 mmHg 2017-11-27 Blood pressure diastolic 88 mmHg 2017-11-27 MEDICATIONS Medication Instructions Dosage Frequency Start Date End Date Duration Status GlipiZIDE 10 mg Orally Once a day 1 tablet 24h October, 30 day(s) Active Embrace Blood Glucose Monitor - subcutaneously Once a day use to check BS 24h October, Active Cetirizine HCl 10 MG Orally Once a day 1 tablet 24h 30 day(s) Active Rivastigmine 9.5 MG/24HR Transdermal Once a day 1 patch to skin 24h Jul, 30 day(s) Active Albuterol Sulfate Active ProAir HFA Active Sertraline HCl 50 mg Orally Once a day 1 tablet 24h Feb, Active Neurontin 300 MG Orally Three times a day 1 capsule 8h Aug, 30 day(s) Active RESULTS Name Result Date Reference Range GLUCOSE FINGERSTICK (IN HOUSE) 2017-11-27 GLU FINGERSTICK 141 PC NA Lot # [id number] Exp date 2018-01-07 PROCEDURES Procedure Date Ordered Result Body Site GLUCOSE BLOOD TEST November 27, 2017 [facility] VIS[facility] ESTABLISHED PATIENT November 27, 2017 INSTRUCTIONS MEDICATIONS ADMINISTERED No Known Medications MEDICAL [...]
--- OUTSIDE RECORDS SUMMARY | 2019-01-20 14:59 | XMS REPORT ---
Author Author VERONICA CARY [facility] Address [address] [place] [address] Care Team Providers [facility] Administrator Name Role Phone VERONICA CARY Unavailable PROBLEMS Type Condition ICD9-CM Code MGN90-MQ Code Onset Dates Condition Status SNOMED Code Problem Alzheimers disease with early onset G30.0 Active 4971086 Problem Moderate episode of recurrent major depressive disorder F33.1 Active 105378809 Problem Uncontrolled type 2 diabetes mellitus without complication, without long- term current use of insulin E11.65 Active 520225642 Problem Corns L84 Active 747048078 Problem Flat foot [pes planus] (acquired), right foot M21.41 Active 66987284 Problem Anxiety F41.9 Active 44324901 Problem Diabetes E11.9 Active 772030482 Problem Seasonal allergies J30.2 Active 520360881 Problem Type 2 diabetes mellitus with unspecified diabetic retinopathy without macular edema E11.319 Active 087257273 Problem Diabetic polyneuropathy associated with type 2 diabetes mellitus E11.42 Active 36538409 Problem Arthritis M19.90 Active 8866779 Problem Type 2 diabetes mellitus with hyperglycemia E11.65 Active [id number] Problem Major depressive disorder, recurrent, in full remission F33.42 Active 118392968 ALLERGIES Substance Reaction Event Type Date Status SulfADIAZINE shortness of breath Drug Allergy October, Active Lisinopril hypotension Drug Allergy October, Active Cozaar hypotension Drug Allergy October, Active Aspirin Unknown Drug Allergy October, Active ENCOUNTERS Encounter Location Date Diagnosis [facility] [address] [facility] [id number] [address] Nov, Diabetes E11.9 and Seasonal allergies J30.2 [facility] [address] [facility] [id number] [address] October, Type 2 diabetes mellitus with hyperglycemia E11.65 and Type 2 diabetes mellitus with unspecified diabetic retinopathy without macular edema E11.319 [place] [id number] [place] [address] October, Diabetes E11.9 ; Alzheimers disease with early onset G30.0 ; Arthritis M19.90 ; Diabetic polyneuropathy associated with type 2 diabetes mellitus E11.42 and Major depressive disorder, recurrent, in full remission F33.42 [place] [id number] [place] [address] Sep, [place] [address] [place] [id number] [place] [address] Sep, Dysfunction of both eustachian tubes H69.83 [place] [id number] [place] [address] Aug, Alzheimer''s disease with early onset G30.0 ; Dementia in other diseases classified elsewhere with behavioral disturbance F02.81 ; 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 and Type 2 diabetes mellitus with hyperglycemia E11.65 [place] [address] [place] [id number] [place] [address] Jul, [place] [id number] [place] [address] Jul, Alzheimer''s disease with early onset G30.0 ; Dementia in other diseases classified elsewhere with behavioral disturbance F02.81 and Uncontrolled type 2 diabetes mellitus without complication, without long-term current use of insulin E11.65 [place] [address] [place] [id number] [place] [address] May, Diabetes type 2, controlled E11.9 ; Bilateral otitis media with effusion H65.93 and Dizziness R42 [facility] [address] [place] [id number] [place] [address] Apr, Dysuria R30.0 and Acute cystitis with hematuria N30.01 [place] [id number] [place] [address] Apr, Moderate episode of recurrent major depressive disorder F33.1 [facility] [place] [address] [place] [id number] [place] [address] 18 Mar, 2017 Acute cystitis without hematuria N30.00 [place] [address] [address] Feb, Uncontrolled type 2 diabetes mellitus without complication, without long-term current use of insulin E11.65 ; Other Alzheimer''s disease G30.8 and Dementia in other diseases classified elsewhere without behavioral disturbance F02.80 [place] [address] [address] Jan, Diabetes type 2, controlled E11.9 and Alzheimers disease with early onset G30.0 [facility] [address] [address] Dec, Allergic contact dermatitis due to plants, except food L23.7 [facility] [address] [address] Dec, Dysuria R30.0 and Candidiasis of female genitalia B37.[address] [address] Dec, Diabetes E11.9 and Alzheimers disease with early onset G30.0 [facility] [address] [address] Nov, Acute exacerbation of chronic obstructive pulmonary disease (COPD) J44.1 and Vaginal candidiasis B37.3 [place] [address] [address] 15 Nov, 2016 Controlled type 2 diabetes mellitus without complication, without long-term current use of insulin E11.9 and Other Alzheimers disease G30.[address] [address] October, OME (otitis media with effusion), bilateral H65.93 ; Dizziness R42 and Diabetes E11.9 [facility] [address] [address] Sep, Vertigo R42 ; Heart murmur R01.1 and Dysfunction of inner ear, bilateral H83.93 [place] [id number] [place] [address] Aug, Acute suppurative otitis media of both ears without spontaneous rupture of tympanic membranes, recurrence not specified H66.003 [facility] [address] [address] Aug, Vaginal irritation N89.8 and Acute exacerbation of chronic obstructive pulmonary disease (COPD) J44.[address] [address] Jul, Dementia in other diseases classified elsewhere without behavioral disturbance F02.80 [place] [id number] [place] [address] Jul, [address] [address] Jun, Diabetes type 2, controlled E11.9 ; Alzheimers disease with early onset G30.0 and Dementia in other diseases classified elsewhere without behavioral disturbance F02.80 [place] [id number] [place] [address] May, Diabetes type 2, controlled E11.9 [facility] [place] [id number] [place] [address] May, Vaginal candidiasis B37.3 and Dysuria R30.0 [facility] [address] [address] 05 May, 2016 Cutaneous abscess of head [any part, except face] L02.811 ; Cellulitis of head [any part, except face] L03.811 ; COPD exacerbation J44.1 and Wheezing R06.2 [place] [id number] [place] [address] Apr, [place] [id number] [place] [address] Apr, Diabetes E11.9 ; Acute upper respiratory infection, unspecified J06.9 and Vagina, candidiasis B37.3 [facility] [place] [address] [address] [place] [id number] [place] [address] Mar, Acute exacerbation of chronic obstructive pulmonary disease (COPD) J44.1 [place] [address] [address] Mar, Diabetes type 2, controlled E11.9 [facility] [place] [address] [address] Feb, Acute bronchitis, unspecified organism J20.9 [place] [address] [address] Feb, Controlled type 2 diabetes mellitus without complication, without long-term current use of insulin E11.9 [place] [address] [address] Jan, Controlled type 2 diabetes mellitus without complication, without long-term current use of insulin E11.9 and Anxiety F41.9 [place] [address] [place] [id number] [place] [address] Dec, [place] [address] [place] [id number] [place] [address] Nov, Diabetes type 2, controlled E11.9 [place] [address] [place] [id number] [place] [address] Nov, Acute pain of left shoulder M25.512 [facility] [place] [address] [address] October, Cellulitis of face L03.211 [place] [address] [address] October, Diabetes type 2, controlled E11.9 [place] [address] [address] October, Diabetes type 2, controlled E11.9 [facility] [address] [place] [id number] [place] [address] Sep, Generalized anxiety disorder F41.1 ; Depression F32.9 and FH: memory loss Z82.0 [place] [address] [place] [id number] [place] [address] Sep, FH: memory loss Z82.0 ; Major depression, recurrent F33.9 and Anxiety disorder, unspecified F41.9 [place] [address] [place] [id number] [place] [address] Aug, PTSD (post-traumatic stress disorder) F43.10 ; Generalized anxiety disorder F41.1 and FH: memory loss Z82.0 [place] [address] [place] [id number] [place] [address] Aug, FH: memory loss Z82.0 ; Depression F32.9 and PTSD (post-traumatic stress disorder) F43.10 [place] [address] [place] [id number] [place] [address] Jul, Major depression, recurrent F33.9 ; Generalized anxiety disorder F41.1 and Alzheimer disease G30.9 [place] [address] [place] [id number] [place] [address] Jul, Diabetes E11.9 and Mood disorder F39 [place] [address] [place] [id number] [place] [address] Jul, Dental examination Z01.20 [place] [address] [place] [id number] [place] [address] Apr, Exertional dyspnea R06.09 and Chronic obstructive pulmonary disease, unspecified COPD type J44.9 [place] [address] [place] [id number] [place] [address] Mar, [place] [address] [place] [id number] [place] [address] Mar, Diabetes E11.9 [facility] [address] [place] [address] Mar, Diabetes E11.9 ; COPD (chronic obstructive pulmonary disease) J44.9 and Hip pain, right M25.551 [facility] [address] [place] [id number] [place] [address] Dec, [facility] [address] [address] Nov, COPD exacerbation 491.21 and Wheezing 786.07 [facility] [address] [address] October, Acute contact dermatitis 692.9 and Anhedonia 780.99 [facility] [address] [place] [id number] [place] [address] October, [facility] [address] [place] [id number] [place] [address] Sep, [facility] [address] [place] [id number] [place] [address] Sep, [facility] [address] [place] [id number] [place] [address] Aug, [facility] [address] [address] Aug, [facility] [address] [place] [id number] [place] [address] Aug, [facility] [address] [place] [address] Aug, [facility] [address] [place] [id number] [place] [address] Jul, [facility] [address] [address] Jul, [facility] [address] [place] [id number] [place] [address] Jul, 2014 [facility] [place] [facility] [address] [id number] [place] [address] Jul, 2014 [facility] [place] [facility] [address] [id number] [place] [address] Jul, [facility] [place] [facility] [address] [id number] [place] [address] Jul, [facility] [place] [facility] [address] [id number] [place] [address] May, [facility] [place] [facility] [address] [id number] [place] [address] May, [facility] [place] [facility] [address] [id number] [place] [address] May, [facility] [place] [facility] [address] [id number] [place] [address] May, [facility] [place] [facility] [address] [id number] [place] [address] May, [facility] [place] [facility] [address] [id number] [place] [address] May, [facility] [place] [facility] [address] [id number] [place] [address] Apr, [facility] [place] [facility] [address] [id number] [place] [address] Apr, [facility] [place] [facility] [address] [id number] [place] [address] Apr, [facility] [place] [facility] [address] [id number] [place] [address] Apr, [facility] [place] [facility] [address] [id number] [place] [address] Mar, [facility] [place] [facility] [address] [id number] [place] [address] Mar, [facility] [place] [facility] [address] [id number] [place] [address] Feb, [facility] [address] [id number] [place] [address] Feb, [facility] [place] [facility] [address] [id number] [place] [address] Jan, [facility] [address] [id number] [place] [address] Jan, [facility] [place] [facility] [address] [id number] [place] [address] Dec, [facility] [address] [id number] [place] [address] Dec, [facility] [address] [id number] [place] [address] October, [facility] [place] [facility] [address] [id number] [place] [address] October, [facility] [address] [id number] [place] [address] October, [facility] [place] [facility] [address] [id number] [place] [address] October, [facility] [address] [id number] [place] [address] October, [facility] [place] [facility] [address] [id number] [place] [address] October, [facility] [place] [facility] [address] [id number] [place] [address] Sep, [facility] [place] [facility] [address] [id number] [place] [address] Sep, [facility] [place] [facility] [address] [id number] [place] [address] Sep, [facility] [place] [facility] [address] [id number] [place] [address] Sep, [facility] [place] [facility] [address] [id number] [place] [address] Sep, [facility] [place] [facility] [address] [id number] [place] [address] Sep, [facility] [place] [facility] [address] [id number] [place] [address] Sep, [facility] [place] [facility] [address] [id number] [place] [address] Sep, [facility] [place] [facility] [address] [id number] [place] [address] Aug, [facility] [place] [facility] [address] [id number] [place] [address] Aug, [facility] [place] [facility] [address] [id number] [place] [address] 14 Aug, 2013 [facility] [place] [facility] [address] [id number] [place] [address] Aug, [facility] [place] [facility] [address] [id number] [place] [address] Aug, [facility] [place] [facility] [address] [id number] [place] [address] Aug, [facility] [place] [facility] [address] [id number] [place] [address] Jul, [facility] [place] [facility] [address] [id number] [place] [address] Jul, [facility] [place] [facility] [address] [id number] [place] [address] Jul, [facility] [place] [facility] [address] [id number] [place] [address] Jul, [facility] [place] [facility] [address] [id number] [place] [address] May, [facility] [place] [facility] [address] [id number] [place] [address] May, [facility] [address] [id number] [place] [address] May, [facility] [place] [facility] [address] [id number] [place] [address] May, [facility] [place] [facility] [address] [id number] [place] [address] Apr, [facility] [place] [facility] [address] [id number] [place] [address] Apr, [facility] [place] [facility] [address] [id number] [place] [address] Apr, [facility] [place] [facility] [address] [id number] [place] [address] Apr, [facility] [place] [facility] [address] [id number] [place] [address] Apr, [facility] [place] [facility] [address] [id number] [place] [address] Apr, [facility] [place] [facility] [address] [id number] [place] [address] Apr, [facility] [place] [facility] [address] [facility] [id number] [place] [address] Apr, [facility] [place] [facility] [address] [id number] [place] [address] Mar, [facility] [place] [facility] [address] [id number] [place] [address] Dec, [facility] [place] [facility] [address] [id number] [place] [address] Dec, [facility] [place] [facility] [address] [id number] [place] [address] Nov, [facility] [place] [facility] [address] [id number] [place] [address] Nov, [facility] [place] [facility] [address] [id number] [place] [address] Nov, [facility] [place] [facility] [address] [id number] [place] [address] Sep, [facility] [place] [facility] [address] [id number] [place] [address] Aug, [facility] [place] [facility] [address] [id number] [place] [address] Aug, [facility] [place] [facility] [address] [id number] [place] [address] Aug, [facility] [place] [facility] [address] [id number] [place] [address] Aug, [facility] [address] [facility] [id number] [place] [address] Jul, [facility] [place] [facility] [address] [id number] [place] [address] Jul, [facility] [place] [facility] [address] [id number] [place] [address] May, [facility] [place] [facility] [address] [id number] [place] [address] May, [facility] [place] [facility] [address] [id number] [place] [address] May, [facility] [place] [facility] [address] [id number] [place] [address] Apr, [facility] [place] [facility] [address] [id number] [place] [address] Apr, [facility] [place] [facility] [address] [id number] [place] [address] Apr, [facility] [place] [facility] [address] [id number] [place] [address] Apr, [facility] [place] [facility] [address] [id number] [place] [address] Apr, [facility] [place] [facility] [address] [id number] [place] [address] Apr, [facility] [place] [facility] [address] [id number] [place] [address] Mar, [facility] [place] [facility] [address] [id number] [place] [address] Mar, [facility] [place] [facility] [address] [id number] [place] [address] Mar, [facility] [place] [facility] [address] [id number] [place] [address] 14 Feb, 2012 [facility] [place] [facility] [address] [id number] [place] [address] Feb, [facility] [place] [facility] [address] [facility] [id number] [place] [address] Feb, [facility] [place] [facility] [address] [facility] [id number] [place] [address] Jan, [facility] [place] [facility] [address] [facility] [id number] [place] [address] Jan, [facility] [place] [facility] [address] [facility] [id number] [place] [address] Jan, [facility] [place] [facility] [address] [facility] [id number] [place] [address] Jan, [facility] [place] [facility] [address] [id number] [place] [address] Dec, [facility] [place] [facility] [address] [id number] [place] [address] Dec, [facility] [place] [facility] [address] [facility] [id number] [place] [address] Nov, [facility] [place] [facility] [address] [facility] [id number] [place] [address] Nov, [facility] [place] [facility] [address] [id number] [place] [address] October, [facility] [address] [id number] [place] [address] October, [facility] [place] [facility] [address] [id number] [place] [address] Sep, [facility] [place] [facility] [address] [id number] [place] [address] Aug, [facility] [place] [facility] [address] [id number] [place] [address] Aug, [facility] [place] [facility] [address] [id number] [place] [address] Jul, [facility] [place] [facility] [address] [id number] [place] [address] Jun, [facility] [place] [facility] [address] [id number] [place] [address] Jun, [facility] [place] [facility] [address] [id number] [place] [address] Jun, [facility] [place] [facility] [address] [id number] [place] [address] Jun, [facility] [place] [facility] [address] [id number] [place] [address] May, [facility] [place] [facility] [address] [id number] [place] [address] May, [facility] [place] [facility] [address] [id number] [place] [address] Mar, [facility] [place] [facility] [address] [id number] [place] [address] Mar, [facility] [place] [facility] [address] [id number] [place] [address] Feb, [facility] [place] [facility] [address] [id number] [place] [address] Dec, [facility] [id number] [address] Aug, [facility] [id number] [address] Aug, [facility] [id number] [address] May, [facility] [id number] [address] Jan, [facility] [id number] [address] Apr, [facility] [id number] [address] Apr, [facility] [id number] [address] Jan, [facility] [id number] [address] Aug, IMMUNIZATIONS No Known Immunizations SOCIAL HISTORY Never Assessed REASON FOR VISIT f/u----Stalin PLAN OF CARE Activity Details Follow Up 3 Months Reason: VITAL SIGNS Height 64 in 2017-10-12 Weight 172 lbs 2017-10-12 Temperature 98.0 degrees Fahrenheit 2017-10-12 Heart Rate 70 bpm 2017-10-12 Respiratory Rate 20 2017-10-12 BMI 29.52 kg/m2 2017-10-12 Blood pressure systolic 144 mmHg 2017-10-12 Blood pressure diastolic 86 mmHg 2017-10-12 MEDICATIONS Medication Instructions Dosage Frequency Start Date End Date Duration Status Rivastigmine 9.5 MG/24HR Transdermal Once a day 1 patch to skin 24h Jul, 30 day(s) Active Diclofenac Sodium 75 MG Orally Twice a day 1 tablet with food or milk 12h Aug, Nov, 30 day(s) Active Embrace Blood Glucose Monitor - subcutaneously Once a day use to check BS 24h October, Active Neurontin 300 MG Orally Three times a day 1 capsule 8h Aug, 30 day(s) Active GlipiZIDE 10 mg Orally Once a day 1 tablet 24h October, 30 day(s) Active Sertraline HCl 50 mg Orally Once a day 1 tablet 24h Feb, Active RESULTS No Results PROCEDURES Procedure Date Ordered Result Body Site [facility] October 12, 2017 [facility] [place] VISIT ESTABLISHED PATIENT October 12, 2017 CLARIBEL, ROUTINE* October 12, 2017 GLYCATED HEMOGLOBIN TEST October 12, 2017 INSTRUCTIONS MEDICATIONS ADMINISTERED No Known Medications [...]
--- OUTSIDE RECORDS SUMMARY | 2019-01-20 14:59 | XMS REPORT ---
Author Author HERMILO VERDUGO Organization [facility] Address [address] [place] [address] Care Team Providers Care Doctor Assistant Name Role Phone KARTIK HERMILO Unavailable PROBLEMS Type Condition ICD9-CM Code AWA76-GX Code Onset Dates Condition Status SNOMED Code Problem Alzheimers disease with early onset G30.0 Active 5434460 Problem Moderate episode of recurrent major depressive disorder F33.1 Active 294018990 Problem Uncontrolled type 2 diabetes mellitus without complication, without long- term current use of insulin E11.65 Active 372568990 Problem Corns L84 Active 020660480 Problem Flat foot [pes planus] (acquired), right foot M21.41 Active 28615520 Problem Anxiety F41.9 Active 76031207 Problem Diabetes E11.9 Active 687526508 Problem Seasonal allergies J30.2 Active 227510004 Problem Type 2 diabetes mellitus with unspecified diabetic retinopathy without macular edema E11.319 Active 336407460 Problem Diabetic polyneuropathy associated with type 2 diabetes mellitus E11.42 Active 99496868 Problem Arthritis M19.90 Active 2647373 Problem Type 2 diabetes mellitus with hyperglycemia E11.65 Active 886057007885829 Problem Major depressive disorder, recurrent, in full remission F33.42 Active 556274934 ALLERGIES No Information ENCOUNTERS Encounter Location Date Diagnosis [facility] [address] [facility] [id number] [address] Nov, Diabetes E11.9 and Seasonal allergies J30.2 [facility] [address] [facility] [id number] [address] October, Type 2 diabetes mellitus with hyperglycemia E11.65 and Type 2 diabetes mellitus with unspecified diabetic retinopathy without macular edema E11.319 [facility] [address] [facility] [id number] [address] October, Diabetes E11.9 ; Alzheimers disease with early onset G30.0 ; Arthritis M19.90 ; Diabetic polyneuropathy associated with type 2 diabetes mellitus E11.42 and Major depressive disorder, recurrent, in full remission F33.[address] [address] Sep, [place] [id number] [place] [address] Sep, Dysfunction of both eustachian tubes H69.[address] [address] Aug, Alzheimer''s disease with early onset G30.0 ; Dementia in other diseases classified elsewhere with behavioral disturbance F02.81 ; 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 and Type 2 diabetes mellitus with hyperglycemia E11.[address] [address] Jul, [address] [address] Jul, Alzheimer''s disease with early onset G30.0 ; Dementia in other diseases classified elsewhere with behavioral disturbance F02.81 and Uncontrolled type 2 diabetes mellitus without complication, without long-term current use of insulin E11.65 [place] [id number] [place] [address] May, Diabetes type 2, controlled E11.9 ; Bilateral otitis media with effusion H65.93 and Dizziness R42 [facility] [address] [place] [id number] [place] [address] Apr, Dysuria R30.0 and Acute cystitis with hematuria N30.[address] [address] 02 Apr, 2017 Moderate episode of recurrent major depressive disorder F33.[address] [facility] [address] [place] [id number] [place] [address] Mar, Acute cystitis without hematuria N30.[address] [place] [address] Feb, Uncontrolled type 2 diabetes mellitus without complication, without long-term current use of insulin E11.65 ; Other Alzheimer''s disease G30.8 and Dementia in other diseases classified elsewhere without behavioral disturbance F02.[address] [address] Jan, Diabetes type 2, controlled E11.9 and Alzheimers disease with early onset G30.0 [facility] [address] [address] Dec, Allergic contact dermatitis due to plants, except food L23.[address] [facility] [address] [address] Dec, Dysuria R30.0 and Candidiasis of female genitalia B37.[address] [address] Dec, Diabetes E11.9 and Alzheimers disease with early onset G30.[address] [facility] [address] [address] Nov, Acute exacerbation of chronic obstructive pulmonary disease (COPD) J44.1 and Vaginal candidiasis B37.[address] [address] Nov, Controlled type 2 diabetes mellitus without complication, without long-term current use of insulin E11.9 and Other Alzheimers disease G30.8 [place] [id number] [place] [address] October, OME (otitis media with effusion), bilateral H65.93 ; Dizziness R42 and Diabetes E11.[address] [facility] [address] [address] Sep, Vertigo R42 ; Heart murmur R01.1 and Dysfunction of inner ear, bilateral H83.[address] [place] [address] Aug, Acute suppurative otitis media of both ears without spontaneous rupture of tympanic membranes, recurrence not specified H66.[address] [facility] [address] [address] Aug, Vaginal irritation N89.8 and Acute exacerbation of chronic obstructive pulmonary disease (COPD) J44.[address] [address] Jul, Dementia in other diseases classified elsewhere without behavioral disturbance F02.[address] [address] Jul, [address] [address] Jun, Diabetes type 2, controlled E11.9 ; Alzheimers disease with early onset G30.0 and Dementia in other diseases classified elsewhere without behavioral disturbance F02.[address] [address] May, Diabetes type 2, controlled E11.[address] [facility] [address] [address] May, Vaginal candidiasis B37.3 and Dysuria R30.[address] [facility] [address] [address] 05 May, 2016 Cutaneous abscess of head [any part, except face] L02.811 ; Cellulitis of head [any part, except face] L03.811 ; COPD exacerbation J44.1 and Wheezing R06.[address] [address] Apr, [address] [address] Apr, Diabetes E11.9 ; Acute upper respiratory infection, unspecified J06.9 and Vagina, candidiasis B37.[address] [facility] [id number] [address] Mar, Acute exacerbation of chronic obstructive pulmonary disease (COPD) J44.1 [facility] [address] [place] [id number] [place] [address] Mar, Diabetes type 2, controlled E11.[address] [facility] [address] [place] [id number] [place] [address] Feb, Acute bronchitis, unspecified organism J20.9 [facility] [address] [place] [id number] [place] [address] Feb, Controlled type 2 diabetes mellitus without complication, without long-term current use of insulin E11.9 [place] [address] [place] [id number] [place] [address] Jan, Controlled type 2 diabetes mellitus without complication, without long-term current use of insulin E11.9 and Anxiety F41.9 [place] [address] [place] [id number] [place] [address] Dec, [facility] [address] [place] [id number] [place] [address] Nov, Diabetes type 2, controlled E11.9 [place] [address] [place] [id number] [place] [address] Nov, Acute pain of left shoulder M25.512 [facility] [address] [place] [id number] [place] [address] October, Cellulitis of face L03.211 [facility] [address] [place] [id number] [place] [address] October, Diabetes type 2, controlled E11.9 [facility] [address] [place] [id number] [place] [address] October, Diabetes type 2, controlled E11.9 [facility] [address] [place] [address] Sep, Generalized anxiety disorder F41.1 ; Depression F32.9 and FH: memory loss Z82.0 [facility] [address] [place] [id number] [place] [address] Sep, FH: memory loss Z82.0 ; Major depression, recurrent F33.9 and Anxiety disorder, unspecified F41.9 [facility] [address] [place] [id number] [place] [address] Aug, PTSD (post-traumatic stress disorder) F43.10 ; Generalized anxiety disorder F41.1 and FH: memory loss Z82.0 [place] [address] [place] [id number] [place] [address] Aug, FH: memory loss Z82.0 ; Depression F32.9 and PTSD (post-traumatic stress disorder) F43.10 [place] [address] [place] [id number] [place] [address] Jul, Major depression, recurrent F33.9 ; Generalized anxiety disorder F41.1 and Alzheimer disease G30.9 [place] [address] [place] [id number] [place] [address] Jul, Diabetes E11.9 and Mood disorder F39 [place] [address] [place] [id number] [place] [address] Jul, Dental examination Z01.20 [place] [address] [place] [id number] [place] [address] Apr, Exertional dyspnea R06.09 and Chronic obstructive pulmonary disease, unspecified COPD type J44.9 [facility] [address] [place] [id number] [place] [address] Mar, [place] [address] [place] [id number] [place] [address] Mar, Diabetes E11.9 [facility] [address] [place] [id number] [place] [address] Mar, Diabetes E11.9 ; COPD (chronic obstructive pulmonary disease) J44.9 and Hip pain, right M25.551 [facility] [address] [id number] [address] Dec, [facility] [address] [place] [id number] [place] [address] Nov, COPD exacerbation 491.21 and Wheezing 786.07 [facility] [address] [place] [id number] [place] [address] October, Acute contact dermatitis 692.9 and Anhedonia 780.99 [facility] [address] [place] [id number] [place] [address] October, [facility] [address] [place] [id number] [place] [address] Sep, [facility] [address] [place] [id number] [place] [address] Sep, [facility] [address] [place] [id number] [place] [address] Aug, [facility] [address] [place] [address] Aug, [facility] [address] [place] [id number] [place] [address] Aug, [facility] [address] [address] Aug, [facility] [address] [place] [id number] [place] [address] Jul, [facility] [address] [address] Jul, [facility] [address] [place] [id number] [place] [address] Jul, [facility] [address] [address] Jul, [facility] [address] [place] [id number] [place] [address] Jul, 2014 [facility] [address] [id number] [place] [address] Jul, [facility] [place] [facility] [address] [id number] [place] [address] May, [facility] [place] [facility] [address] [id number] [place] [address] May, [facility] [place] [facility] [address] [id number] [place] [address] May, [facility] [place] [facility] [address] [id number] [place] [address] May, [facility] [place] [facility] [address] [id number] [place] [address] May, [facility] [place] [facility] [address] [facility] [id number] [place] [address] May, [facility] [place] [facility] [address] [id number] [place] [address] Apr, [facility] [place] [facility] [address] [id number] [place] [address] Apr, [facility] [place] [facility] [address] [facility] [id number] [place] [address] Apr, [facility] [place] [facility] [address] [id number] [place] [address] Apr, [facility] [place] [facility] [address] [id number] [place] [address] Mar, [facility] [place] [facility] [address] [id number] [place] [address] Mar, [facility] [place] [facility] [address] [facility] [id number] [place] [address] Feb, [facility] [place] [facility] [address] [id number] [place] [address] Feb, [facility] [place] [facility] [address] [id number] [place] [address] Jan, [facility] [place] [facility] [address] [id number] [place] [address] Jan, [facility] [place] [facility] [address] [id number] [place] [address] Dec, [facility] [place] [facility] [address] [id number] [place] [address] Dec, [facility] [place] [facility] [address] [id number] [place] [address] October, [facility] [place] [facility] [address] [id number] [place] [address] October, [facility] [place] [facility] [address] [id number] [place] [address] October, [facility] [place] [facility] [address] [id number] [place] [address] October, [facility] [place] [facility] [address] [id number] [place] [address] October, [facility] [place] [facility] [address] [id number] [place] [address] October, [facility] [place] [facility] [address] [id number] [place] [address] Sep, [facility] [place] [facility] [address] [id number] [place] [address] Sep, [facility] [place] [facility] [address] [id number] [place] [address] Sep, [facility] [place] [facility] [address] [id number] [place] [address] Sep, [facility] [place] [facility] [address] [id number] [place] [address] Sep, [facility] [place] [facility] [address] [id number] [address] 10 Sep, 2013 [facility] [place] [facility] [address] [id number] [place] [address] 08 Sep, 2013 [facility] [place] [facility] [address] [id number] [place] [address] 08 Sep, 2013 [facility] [place] [facility] [address] [id number] [place] [address] 26 Aug, 2013 [facility] [place] [facility] [address] [id number] [place] [address] 14 Aug, 2013 [facility] [place] [facility] [address] [id number] [place] [address] 14 Aug, 2013 [facility] [place] [facility] [address] [id number] [place] [address] 13 Aug, 2013 [facility] [place] [facility] [address] [facility] [id number] [place] [address] Aug, [facility] [place] [facility] [address] [facility] [id number] [place] [address] Aug, [facility] [place] [facility] [address] [facility] [id number] [place] [address] 24 Jul, 2013 [facility] [place] [facility] [address] [facility] [id number] [place] [address] Jul, [facility] [place] [facility] [address] [facility] [id number] [place] [address] Jul, [facility] [place] [facility] [address] [facility] [id number] [place] [address] Jul, [facility] [place] [facility] [address] [id number] [place] [address] May, [facility] [place] [facility] [address] [id number] [place] [address] May, [facility] [place] [facility] [address] [facility] [id number] [place] [address] May, [facility] [place] [facility] [address] [id number] [place] [address] May, [facility] [place] [facility] [address] [id number] [place] [address] Apr, [facility] [place] [facility] [address] [id number] [place] [address] Apr, [facility] [place] [facility] [address] [id number] [place] [address] Apr, [facility] [place] [facility] [address] [id number] [place] [address] Apr, [facility] [place] [facility] [address] [id number] [place] [address] Apr, [facility] [place] [facility] [address] [id number] [place] [address] Apr, [facility] [place] [facility] [address] [id number] [place] [address] Apr, [facility] [place] [facility] [address] [id number] [place] [address] Apr, [facility] [place] [facility] [address] [id number] [place] [address] Mar, [facility] [place] [facility] [address] [id number] [place] [address] Dec, [facility] [place] [facility] [address] [id number] [place] [address] Dec, [facility] [place] [facility] [address] [id number] [place] [address] Nov, [facility] [place] [facility] [address] [id number] [place] [address] Nov, [facility] [place] [facility] [address] [id number] [place] [address] Nov, [facility] [place] [facility] [address] [id number] [address] Sep, [facility] [address] [id number] [place] [address] Aug, [facility] [place] [facility] [address] [id number] [place] [address] Aug, [facility] [place] [facility] [address] [id number] [place] [address] Aug, [facility] [place] [facility] [address] [id number] [place] [address] Aug, [facility] [place] [facility] [address] [id number] [place] [address] Jul, [facility] [place] [facility] [address] [id number] [place] [address] Jul, [facility] [address] [id number] [place] [address] May, [facility] [place] [facility] [address] [id number] [place] [address] May, [facility] [place] [facility] [address] [id number] [place] [address] May, [facility] [place] [facility] [address] [id number] [place] [address] Apr, [facility] [place] [facility] [address] [id number] [place] [address] Apr, [facility] [place] [facility] [address] [id number] [place] [address] Apr, [facility] [place] [facility] [address] [id number] [place] [address] Apr, [facility] [place] [facility] [address] [id number] [place] [address] Apr, [facility] [place] [facility] [address] [id number] [place] [address] Apr, [facility] [place] [facility] [address] [id number] [place] [address] Mar, [facility] [place] [facility] [address] [id number] [place] [address] Mar, [facility] [place] [facility] [address] [id number] [place] [address] Mar, [facility] [place] [facility] [address] [id number] [place] [address] 14 Feb, 2012 [facility] [place] [facility] [address] [id number] [place] [address] Feb, [facility] [place] [facility] [address] [id number] [place] [address] Feb, [facility] [place] [facility] [address] [id number] [place] [address] Jan, [facility] [place] [facility] [address] [id number] [place] [address] Jan, [facility] [place] [facility] [address] [id number] [place] [address] Jan, [facility] [place] [facility] [address] [id number] [place] [address] Jan, [facility] [place] [facility] [address] [id number] [place] [address] Dec, [facility] [place] [facility] [address] [id number] [place] [address] Dec, [facility] [place] [facility] [address] [id number] [place] [address] Nov, [facility] [place] [facility] [address] [id number] [place] [address] Nov, [facility] [place] [facility] [address] [id number] [place] [address] October, [facility] [place] [facility] [address] [id number] [place] [address] October, [facility] [address] [id number] [place] [address] Sep, [facility] [place] [facility] [address] [id number] [place] [address] Aug, [facility] [place] [facility] [address] [id number] [place] [address] Aug, [facility] [place] [facility] [address] [id number] [place] [address] Jul, [facility] [place] [facility] [address] [id number] [place] [address] Jun, [facility] [place] [facility] [address] [id number] [place] [address] Jun, [facility] [place] [facility] [address] [id number] [place] [address] Jun, [facility] [place] [facility] [address] [id number] [place] [address] Jun, [facility] [place] [facility] [address] [id number] [place] [address] May, [facility] [place] [facility] [address] [id number] [place] [address] May, [facility] [place] [facility] [address] [id number] [place] [address] Mar, [facility] [place] [facility] [address] [id number] [address] Mar, [facility] [place] [facility] [address] [id number] [place] [address] Feb, [facility] [place] [facility] [address] [id number] [address] Dec, [facility] [place] [facility] [address] [id number] [place] [address] Aug, [facility] [place] [facility] [address] [facility] [id number] [address] 16 Aug, 2010 [facility] [address] [facility] [id number] [address] May, [facility] [address] [id number] [address] Jan, [facility] [address] [id number] [address] Apr, [facility] [id number] [address] Apr, [facility] [address] [id number] [address] Jan, [facility] [address] [id number] [address] Aug, IMMUNIZATIONS No Known Immunizations SOCIAL HISTORY Never Assessed REASON FOR VISIT ear pain PLAN OF CARE VITAL SIGNS MEDICATIONS Medication Instructions Dosage Frequency Start Date End Date Duration Status Amoxicillin 500 mg Orally every 8 hrs 1 capsule 8h Sep, Sep, 10 day(s) Active PredniSONE 20 mg Orally Once a day 2 tablets 24h Sep, Sep, 05 days Active RESULTS No Results PROCEDURES No [...]
--- OUTSIDE RECORDS SUMMARY | 2019-01-20 15:00 | XMS REPORT ---
Author Author VERONICA CARY [facility] Address [address] [place] [address] Care Team Providers Care It Help Desk Analyst Name Role Phone VERONICA CARY Unavailable PROBLEMS Type Condition ICD9-CM Code AXB36-TM Code Onset Dates Condition Status SNOMED Code Problem Alzheimers disease with early onset G30.0 Active 7606926 Problem Moderate episode of recurrent major depressive disorder F33.1 Active 155419276 Problem Uncontrolled type 2 diabetes mellitus without complication, without long- term current use of insulin E11.65 Active 553025731 Problem Corns L84 Active 195648522 Problem Flat foot [pes planus] (acquired), right foot M21.41 Active 90122102 Problem Anxiety F41.9 Active 30759796 Problem Diabetes E11.9 Active 219694016 Problem Seasonal allergies J30.2 Active 672427995 Problem Type 2 diabetes mellitus with unspecified diabetic retinopathy without macular edema E11.319 Active 286716161 Problem Diabetic polyneuropathy associated with type 2 diabetes mellitus E11.42 Active 92686466 Problem Arthritis M19.90 Active 8708042 Problem Type 2 diabetes mellitus with hyperglycemia E11.65 Active [id number] Problem Major depressive disorder, recurrent, in full remission F33.42 Active 762193471 ALLERGIES Substance Reaction Event Type Date Status SulfADIAZINE shortness of breath Drug Allergy Sep, Active Lisinopril hypotension Drug Allergy Sep, Active Cozaar hypotension Drug Allergy Sep, Active Aspirin Unknown Drug Allergy Sep, Active ENCOUNTERS Encounter Location Date Diagnosis [facility] [address] [facility] [place] [id number], [place] [address] Nov, Diabetes E11.9 and Seasonal allergies J30.2 [facility] [address] [facility] [place] [id number], [place] [address] October, Type 2 diabetes mellitus with hyperglycemia E11.65 and Type 2 diabetes mellitus with unspecified diabetic retinopathy without macular edema E11.319 [place] [id number] [place] [address] October, Diabetes E11.9 ; Alzheimers disease with early onset G30.0 ; Arthritis M19.90 ; Diabetic polyneuropathy associated with type 2 diabetes mellitus E11.42 and Major depressive disorder, recurrent, in full remission F33.42 [place] [id number] [place] [address] Sep, [place] [address] [place] [id number] [place] [address] Sep, Dysfunction of both eustachian tubes H69.83 [place] [id number] [place] [address] Aug, Alzheimer''s disease with early onset G30.0 ; Dementia in other diseases classified elsewhere with behavioral disturbance F02.81 ; 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 and Type 2 diabetes mellitus with hyperglycemia E11.65 [place] [address] [place] [id number] [place] [address] Jul, [place] [id number] [place] [address] Jul, Alzheimer''s disease with early onset G30.0 ; Dementia in other diseases classified elsewhere with behavioral disturbance F02.81 and Uncontrolled type 2 diabetes mellitus without complication, without long-term current use of insulin E11.65 [place] [address] [place] [id number] [place] [address] May, Diabetes type 2, controlled E11.9 ; Bilateral otitis media with effusion H65.93 and Dizziness R42 [facility] [address] [place] [id number] [place] [address] Apr, Dysuria R30.0 and Acute cystitis with hematuria N30.01 [place] [id number] [place] [address] Apr, Moderate episode of recurrent major depressive disorder F33.1 [facility] [place] [address] [place] [id number] [place] [address] 18 Mar, 2017 Acute cystitis without hematuria N30.00 [place] [address] [address] Feb, Uncontrolled type 2 diabetes mellitus without complication, without long-term current use of insulin E11.65 ; Other Alzheimer''s disease G30.8 and Dementia in other diseases classified elsewhere without behavioral disturbance F02.80 [place] [address] [address] Jan, Diabetes type 2, controlled E11.9 and Alzheimers disease with early onset G30.0 [facility] [address] [address] Dec, Allergic contact dermatitis due to plants, except food L23.7 [facility] [address] [address] Dec, Dysuria R30.0 and Candidiasis of female genitalia B37.[address] [address] Dec, Diabetes E11.9 and Alzheimers disease with early onset G30.0 [facility] [address] [address] Nov, Acute exacerbation of chronic obstructive pulmonary disease (COPD) J44.1 and Vaginal candidiasis B37.3 [place] [address] [address] 15 Nov, 2016 Controlled type 2 diabetes mellitus without complication, without long-term current use of insulin E11.9 and Other Alzheimers disease G30.[address] [address] October, OME (otitis media with effusion), bilateral H65.93 ; Dizziness R42 and Diabetes E11.9 [facility] [address] [address] Sep, Vertigo R42 ; Heart murmur R01.1 and Dysfunction of inner ear, bilateral H83.93 [place] [id number] [place] [address] Aug, Acute suppurative otitis media of both ears without spontaneous rupture of tympanic membranes, recurrence not specified H66.003 [facility] [address] [address] Aug, Vaginal irritation N89.8 and Acute exacerbation of chronic obstructive pulmonary disease (COPD) J44.[address] [address] Jul, Dementia in other diseases classified elsewhere without behavioral disturbance F02.80 [place] [id number] [place] [address] Jul, [address] [address] Jun, Diabetes type 2, controlled E11.9 ; Alzheimers disease with early onset G30.0 and Dementia in other diseases classified elsewhere without behavioral disturbance F02.80 [place] [id number] [place] [address] May, Diabetes type 2, controlled E11.9 [facility] [place] [id number] [place] [address] May, Vaginal candidiasis B37.3 and Dysuria R30.0 [facility] [address] [address] 05 May, 2016 Cutaneous abscess of head [any part, except face] L02.811 ; Cellulitis of head [any part, except face] L03.811 ; COPD exacerbation J44.1 and Wheezing R06.2 [place] [id number] [place] [address] Apr, [place] [id number] [place] [address] Apr, Diabetes E11.9 ; Acute upper respiratory infection, unspecified J06.9 and Vagina, candidiasis B37.3 [facility] [place] [address] [place] [id number] [place] [address] Mar, Acute exacerbation of chronic obstructive pulmonary disease (COPD) J44.1 [place] [address] [address] Mar, Diabetes type 2, controlled E11.9 [facility] [place] [address] [address] Feb, Acute bronchitis, unspecified organism J20.9 [place] [address] [address] Feb, Controlled type 2 diabetes mellitus without complication, without long-term current use of insulin E11.9 [place] [address] [address] Jan, Controlled type 2 diabetes mellitus without complication, without long-term current use of insulin E11.9 and Anxiety F41.9 [place] [address] [place] [id number] [place] [address] Dec, [place] [address] [place] [id number] [place] [address] Nov, Diabetes type 2, controlled E11.9 [place] [address] [place] [id number] [place] [address] Nov, Acute pain of left shoulder M25.512 [facility] [place] [address] [address] October, Cellulitis of face L03.211 [place] [address] [address] October, Diabetes type 2, controlled E11.9 [place] [address] [address] October, Diabetes type 2, controlled E11.9 [facility] [address] [place] [id number] [place] [address] Sep, Generalized anxiety disorder F41.1 ; Depression F32.9 and FH: memory loss Z82.0 [place] [address] [place] [id number] [place] [address] Sep, FH: memory loss Z82.0 ; Major depression, recurrent F33.9 and Anxiety disorder, unspecified F41.9 [place] [address] [place] [id number] [place] [address] Aug, PTSD (post-traumatic stress disorder) F43.10 ; Generalized anxiety disorder F41.1 and FH: memory loss Z82.0 [place] [address] [place] [id number] [place] [address] Aug, FH: memory loss Z82.0 ; Depression F32.9 and PTSD (post-traumatic stress disorder) F43.10 [place] [address] [place] [id number] [place] [address] Jul, Major depression, recurrent F33.9 ; Generalized anxiety disorder F41.1 and Alzheimer disease G30.9 [place] [address] [place] [id number] [place] [address] Jul, Diabetes E11.9 and Mood disorder F39 [place] [address] [place] [id number] [place] [address] Jul, Dental examination Z01.20 [place] [address] [place] [id number] [place] [address] Apr, Exertional dyspnea R06.09 and Chronic obstructive pulmonary disease, unspecified COPD type J44.9 [place] [address] [place] [id number] [place] [address] Mar, [place] [address] [place] [id number] [place] [address] Mar, Diabetes E11.9 [facility] [id number] [place] [address] Mar, Diabetes E11.9 ; COPD (chronic obstructive pulmonary disease) J44.9 and Hip pain, right M25.551 [facility] [address] [place] [id number] [place] [address] Dec, [facility] [address] [address] Nov, COPD exacerbation 491.21 and Wheezing 786.07 [facility] [address] [address] October, Acute contact dermatitis 692.9 and Anhedonia 780.99 [facility] [address] [place] [id number] [place] [address] October, [facility] [address] [place] [id number] [place] [address] Sep, [facility] [address] [place] [id number] [place] [address] Sep, [facility] [address] [place] [id number] [place] [address] Aug, [facility] [address] [address] Aug, [facility] [address] [place] [id number] [place] [address] Aug, [facility] [id number] [place] [address] Aug, [facility] [address] [place] [id number] [place] [address] Jul, [facility] [address] [address] Jul, [facility] [address] [place] [id number] [place] [address] Jul, 2014 [facility] [place] [facility] [address] [id number] [place] [address] Jul, 2014 [facility] [place] [facility] [address] [id number] [place] [address] Jul, [facility] [place] [facility] [address] [id number] [place] [address] Jul, [facility] [place] [facility] [address] [id number] [place] [address] May, [facility] [place] [facility] [address] [id number] [place] [address] May, [facility] [place] [facility] [address] [id number] [place] [address] May, [facility] [place] [facility] [address] [id number] [place] [address] May, [facility] [place] [facility] [address] [id number] [place] [address] May, [facility] [place] [facility] [address] [id number] [place] [address] May, [facility] [place] [facility] [address] [id number] [place] [address] Apr, [facility] [place] [facility] [address] [id number], [place] [address] Apr, [facility] [place] [facility] [address] [id number], [place] [address] Apr, [facility] [place] [facility] [address] [id number], [place] [address] Apr, [facility] [place] [facility] [address] [id number], [place] [address] Mar, [facility] [place] [facility] [address] [id number] [place] [address] Mar, [facility] [place] [facility] [address] [id number] [place] [address] Feb, [facility] [address] [id number] [place] [address] Feb, [facility] [place] [facility] [address] [id number] [place] [address] Jan, [facility] [address] [id number] [place] [address] Jan, [facility] [place] [facility] [address] [id number] [place] [address] Dec, [facility] [address] [id number] [place] [address] Dec, [facility] [address] [id number] [place] [address] October, [facility] [place] [facility] [address] [id number] [place] [address] October, [facility] [address] [id number] [place] [address] October, [facility] [place] [facility] [address] [id number] [place] [address] October, [facility] [address] [id number] [place] [address] October, [facility] [place] [facility] [address] [id number] [place] [address] October, [facility] [place] [facility] [address] [id number] [place] [address] Sep, [facility] [place] [facility] [address] [id number] [place] [address] Sep, [facility] [place] [facility] [address] [id number] [place] [address] Sep, [facility] [place] [facility] [address] [id number] [place] [address] Sep, [facility] [place] [facility] [address] [id number] [place] [address] Sep, [facility] [place] [facility] [address] [id number] [place] [address] Sep, [facility] [place] [facility] [address] [id number] [place] [address] Sep, [facility] [place] [facility] [address] [id number] [place] [address] Sep, [facility] [place] [facility] [address] [id number] [place] [address] Aug, [facility] [place] [facility] [address] [id number] [place] [address] Aug, [facility] [place] [facility] [address] [id number] [place] [address] 14 Aug, 2013 [facility] [place] [facility] [address] [id number] [place] [address] Aug, [facility] [place] [facility] [address] [id number] [place] [address] Aug, [facility] [place] [facility] [address] [id number] [place] [address] Aug, [facility] [place] [facility] [address] [id number] [place] [address] Jul, [facility] [place] [facility] [address] [id number] [place] [address] Jul, [facility] [place] [facility] [address] [id number] [place] [address] Jul, [facility] [place] [facility] [address] [id number] [place] [address] Jul, [facility] [place] [facility] [address] [id number] [place] [address] May, [facility] [place] [facility] [address] [id number] [place] [address] May, [facility] [address] [id number] [place] [address] May, [facility] [place] [facility] [address] [id number] [place] [address] May, [facility] [place] [facility] [address] [id number] [place] [address] Apr, [facility] [place] [facility] [address] [id number] [place] [address] Apr, [facility] [place] [facility] [address] [id number] [place] [address] Apr, [facility] [place] [facility] [address] [id number] [place] [address] Apr, [facility] [place] [facility] [address] [id number] [place] [address] Apr, [facility] [place] [facility] [address] [id number] [place] [address] Apr, [facility] [place] [facility] [address] [id number] [place] [address] Apr, [facility] [place] [facility] [address] [facility] [place] [id number] [place] [address] Apr, [facility] [place] [facility] [address] [id number] [place] [address] Mar, [facility] [place] [facility] [address] [id number] [place] [address] Dec, [facility] [place] [facility] [address] [id number] [place] [address] Dec, [facility] [place] [facility] [address] [id number] [place] [address] Nov, [facility] [place] [facility] [address] [id number] [place] [address] Nov, [facility] [place] [facility] [address] [id number] [place] [address] Nov, [facility] [place] [facility] [address] [id number] [place] [address] Sep, [facility] [place] [facility] [address] [id number] [place] [address] Aug, [facility] [place] [facility] [address] [id number] [place] [address] Aug, [facility] [place] [facility] [address] [id number] [place] [address] Aug, [facility] [place] [facility] [address] [id number] [place] [address] Aug, [facility] [address] [facility] [place] [id number] [place] [address] Jul, [facility] [place] [facility] [address] [id number] [place] [address] Jul, [facility] [place] [facility] [address] [id number] [place] [address] May, [facility] [place] [facility] [address] [id number] [place] [address] May, [facility] [place] [facility] [address] [id number] [place] [address] May, [facility] [place] [facility] [address] [id number], [place] [address] Apr, [facility] [place] [facility] [address] [id number] [place] [address] Apr, [facility] [place] [facility] [address] [id number] [place] [address] Apr, [facility] [place] [facility] [address] [id number] [place] [address] Apr, [facility] [place] [facility] [address] [id number] [place] [address] Apr, [facility] [place] [facility] [address] [id number] [place] [address] Apr, [facility] [place] [facility] [address] [id number] [place] [address] Mar, [facility] [place] [facility] [address] [id number] [place] [address] Mar, [facility] [place] [facility] [address] [id number] [place] [address] Mar, [facility] [place] [facility] [address] [id number] [place] [address] 14 Feb, 2012 [facility] [place] [facility] [address] [id number] [place] [address] Feb, [facility] [place] [facility] [address] [facility] [place] [id number] [place] [address] Feb, [facility] [place] [facility] [address] [facility] [place] [id number] [place] [address] Jan, [facility] [place] [facility] [address] [facility] [place] [id number] [place] [address] Jan, [facility] [place] [facility] [address] [facility] [place] [id number] [place] [address] Jan, [facility] [place] [facility] [address] [facility] [place] [id number] [place] [address] Jan, [facility] [place] [facility] [address] [id number] [place] [address] Dec, [facility] [place] [facility] [address] [id number] [place] [address] Dec, [facility] [place] [facility] [address] [facility] [place] [id number] [place] [address] Nov, [facility] [place] [facility] [address] [facility] [place] [id number] [place] [address] Nov, [facility] [place] [facility] [address] [id number] [place] [address] October, [facility] [address] [id number] [place] [address] October, [facility] [place] [facility] [address] [id number] [place] [address] Sep, [facility] [place] [facility] [address] [id number] [place] [address] Aug, [facility] [place] [facility] [address] [id number] [place] [address] Aug, [facility] [place] [facility] [address] [id number] [place] [address] Jul, [facility] [place] [facility] [address] [id number] [place] [address] Jun, [facility] [place] [facility] [address] [id number] [place] [address] Jun, [facility] [place] [facility] [address] [id number] [place] [address] Jun, [facility] [place] [facility] [address] [id number] [place] [address] Jun, [facility] [place] [facility] [address] [id number] [place] [address] May, [facility] [place] [facility] [address] [id number] [place] [address] May, [facility] [place] [facility] [address] [id number] [place] [address] Mar, [facility] [place] [facility] [address] [id number] [place] [address] Mar, [facility] [place] [facility] [address] [id number] [place] [address] Feb, [facility] [place] [facility] [address] [id number] [place] [address] Dec, [facility] [address] [id number] [address] Aug, [facility] [id number] [place] [address] Aug, [facility] [id number] [place] [address] May, [facility] [address] [id number] [address] Jan, [facility] [id number] [place] [address] Apr, [facility] [id number] [place] [address] Apr, [facility] [id number] [place] [address] Jan, [facility] [id number] [place] [address] Aug, IMMUNIZATIONS No Known Immunizations SOCIAL HISTORY Never Assessed REASON FOR VISIT Earache and pressure in both ears-Bonnie COWAN PLAN OF CARE Activity Details Follow Up Reg appt Reason: VITAL SIGNS Height 64 in 2017-09-21 Weight 169.4 lbs 2017-09-21 Temperature 97.7 degrees Fahrenheit 2017-09-21 Heart Rate 72 bpm 2017-09-21 Respiratory Rate 18 2017-09-21 BMI 29.07 kg/m2 2017-09-21 Blood pressure systolic 128 mmHg 2017-09-21 Blood pressure diastolic 80 mmHg 2017-09-21 MEDICATIONS Medication Instructions Dosage Frequency Start Date End Date Duration Status Diclofenac Sodium 75 MG Orally Twice a day 1 tablet with food or milk 12h Aug, Nov, 30 day(s) Active SudoGest 60 mg Orally 3 times a day 1 tablet as needed 8h 10 Sep, 2017 05 days Active Actos 30 MG Orally Once a day 1 tablet 24h 01 Jul, 2017 30 day(s) Active Neurontin 300 MG Orally Three times a day 1 capsule 8h Aug, 30 day(s) Active RESULTS No Results PROCEDURES Procedure Date Ordered Result Body Site [facility] VISIT ESTABLISHED PATIENT September 21, 2017 INSTRUCTIONS MEDICATIONS ADMINISTERED No Known Medications [...]
--- OUTSIDE RECORDS SUMMARY | 2019-01-20 15:00 | XMS REPORT ---
Author Author HERMILO VERDUGO Organization [facility] Address [address] [place] [address] Care Team Providers Care Foreign Exchange Dealer Name Role Phone KARTIK HERMILO Unavailable PROBLEMS Type Condition ICD9-CM Code WIF04-YO Code Onset Dates Condition Status SNOMED Code Problem Alzheimers disease with early onset G30.0 Active 0652374 Problem Moderate episode of recurrent major depressive disorder F33.1 Active 198004204 Problem Uncontrolled type 2 diabetes mellitus without complication, without long- term current use of insulin E11.65 Active 034335998 Problem Corns L84 Active 949826843 Problem Flat foot [pes planus] (acquired), right foot M21.41 Active 78306194 Problem Anxiety F41.9 Active 88801488 Problem Diabetes E11.9 Active 676984465 Problem Seasonal allergies J30.2 Active 932375230 Problem Type 2 diabetes mellitus with unspecified diabetic retinopathy without macular edema E11.319 Active 060607081 Problem Diabetic polyneuropathy associated with type 2 diabetes mellitus E11.42 Active 56877640 Problem Arthritis M19.90 Active 9256081 Problem Type 2 diabetes mellitus with hyperglycemia E11.65 Active [id number] Problem Major depressive disorder, recurrent, in full remission F33.42 Active 570528721 ALLERGIES Substance Reaction Event Type Date Status SulfADIAZINE shortness of breath Drug Allergy Aug, Active Lisinopril hypotension Drug Allergy Aug, Active Cozaar hypotension Drug Allergy Aug, Active Aspirin Unknown Drug Allergy Aug, Active ENCOUNTERS Encounter Location Date Diagnosis [facility] [address] [facility] [id number] [address] Nov, Diabetes E11.9 and Seasonal allergies J30.2 [facility] [address] [facility] [id number] [address] October, Type 2 diabetes mellitus with hyperglycemia E11.65 and Type 2 diabetes mellitus with unspecified diabetic retinopathy without macular edema E11.319 [place] [id number] [place] [address] October, Diabetes E11.9 ; Alzheimers disease with early onset G30.0 ; Arthritis M19.90 ; Diabetic polyneuropathy associated with type 2 diabetes mellitus E11.42 and Major depressive disorder, recurrent, in full remission F33.42 [place] [id number] [place] [address] Sep, [place] [address] [place] [id number] [place] [address] Sep, Dysfunction of both eustachian tubes H69.[address] [address] Aug, Alzheimer''s disease with early onset G30.0 ; Dementia in other diseases classified elsewhere with behavioral disturbance F02.81 ; 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 and Type 2 diabetes mellitus with hyperglycemia E11.65 [place] [id number] [place] [address] Jul, [place] [id number] [place] [address] Jul, Alzheimer''s disease with early onset G30.0 ; Dementia in other diseases classified elsewhere with behavioral disturbance F02.81 and Uncontrolled type 2 diabetes mellitus without complication, without long-term current use of insulin E11.65 [place] [id number] [place] [address] May, Diabetes type 2, controlled E11.9 ; Bilateral otitis media with effusion H65.93 and Dizziness R42 [facility] [address] [place] [id number] [place] [address] Apr, Dysuria R30.0 and Acute cystitis with hematuria N30.01 [place] [id number] [place] [address] Apr, Moderate episode of recurrent major depressive disorder F33.1 [facility] [address] [place] [address] 18 Mar, 2017 Acute cystitis without hematuria N30.00 [place] [address] [address] Feb, Uncontrolled type 2 diabetes mellitus without complication, without long-term current use of insulin E11.65 ; Other Alzheimer''s disease G30.8 and Dementia in other diseases classified elsewhere without behavioral disturbance F02.[address] [address] Jan, Diabetes type 2, controlled E11.9 and Alzheimers disease with early onset G30.0 [facility] [address] [address] Dec, Allergic contact dermatitis due to plants, except food L23.7 [facility] [address] [address] Dec, Dysuria R30.0 and Candidiasis of female genitalia B37.[address] [address] Dec, Diabetes E11.9 and Alzheimers disease with early onset G30.0 [facility] [address] [address] Nov, Acute exacerbation of chronic obstructive pulmonary disease (COPD) J44.1 and Vaginal candidiasis B37.[address] [address] 15 Nov, 2016 Controlled type 2 diabetes mellitus without complication, without long-term current use of insulin E11.9 and Other Alzheimers disease G30.[address] [address] October, OME (otitis media with effusion), bilateral H65.93 ; Dizziness R42 and Diabetes E11.9 [facility] [address] [address] Sep, Vertigo R42 ; Heart murmur R01.1 and Dysfunction of inner ear, bilateral H83.93 [place] [address] [address] Aug, Acute suppurative otitis media of both ears without spontaneous rupture of tympanic membranes, recurrence not specified H66.003 [facility] [place] [address] [address] Aug, Vaginal irritation N89.8 and Acute exacerbation of chronic obstructive pulmonary disease (COPD) J44.[address] [address] Jul, Dementia in other diseases classified elsewhere without behavioral disturbance F02.80 [place] [address] [address] Jul, [address] [address] Jun, Diabetes type 2, controlled E11.9 ; Alzheimers disease with early onset G30.0 and Dementia in other diseases classified elsewhere without behavioral disturbance F02.80 [place] [address] [address] May, Diabetes type 2, controlled E11.9 [facility] [place] [id number] [place] [address] May, Vaginal candidiasis B37.3 and Dysuria R30.0 [facility] [address] [address] 05 May, 2016 Cutaneous abscess of head [any part, except face] L02.811 ; Cellulitis of head [any part, except face] L03.811 ; COPD exacerbation J44.1 and Wheezing R06.[address] [address] Apr, [address] [place] [address] Apr, Diabetes E11.9 ; Acute upper respiratory infection, unspecified J06.9 and Vagina, candidiasis B37.3 [facility] [address] [place] [id number] [place] [address] Mar, Acute exacerbation of chronic obstructive pulmonary disease (COPD) J44.1 [place] [address] [address] 07 Mar, 2016 Diabetes type 2, controlled E11.9 [facility] [address] [address] Feb, Acute bronchitis, unspecified organism J20.9 [place] [address] [address] Feb, Controlled type 2 diabetes mellitus without complication, without long-term current use of insulin E11.9 [place] [address] [address] Jan, Controlled type 2 diabetes mellitus without complication, without long-term current use of insulin E11.9 and Anxiety F41.9 [place] [address] [address] Dec, [place] [address] [address] Nov, Diabetes type 2, controlled E11.9 [place] [address] [place] [id number] [place] [address] Nov, Acute pain of left shoulder M25.512 [facility] [address] [place] [id number] [place] [address] October, Cellulitis of face L03.211 [place] [address] [address] October, Diabetes type 2, controlled E11.9 [place] [address] [address] October, Diabetes type 2, controlled E11.9 [facility] [address] [address] Sep, Generalized anxiety disorder F41.1 ; Depression F32.9 and FH: memory loss Z82.0 [place] [address] [place] [id number] [place] [address] Sep, FH: memory loss Z82.0 ; Major depression, recurrent F33.9 and Anxiety disorder, unspecified F41.9 [place] [address] [place] [id number] [place] [address] Aug, PTSD (post-traumatic stress disorder) F43.10 ; Generalized anxiety disorder F41.1 and FH: memory loss Z82.0 [place] [address] [place] [id number] [place] [address] Aug, FH: memory loss Z82.0 ; Depression F32.9 and PTSD (post-traumatic stress disorder) F43.10 [place] [address] [place] [id number] [place] [address] Jul, Major depression, recurrent F33.9 ; Generalized anxiety disorder F41.1 and Alzheimer disease G30.9 [place] [address] [place] [id number] [place] [address] Jul, Diabetes E11.9 and Mood disorder F39 [place] [address] [place] [id number] [place] [address] Jul, Dental examination Z01.20 [place] [address] [place] [id number] [place] [address] Apr, Exertional dyspnea R06.09 and Chronic obstructive pulmonary disease, unspecified COPD type J44.9 [place] [address] [place] [id number] [place] [address] Mar, [place] [address] [place] [id number] [place] [address] Mar, Diabetes E11.9 [facility] [address] [place] [id number] [place] [address] Mar, Diabetes E11.9 ; COPD (chronic obstructive pulmonary disease) J44.9 and Hip pain, right M25.551 [facility] [address] [place] [id number] [place] [address] Dec, [facility] [address] [address] Nov, COPD exacerbation 491.[address] [facility] [address] [place] [id number] [place] [address] October, Acute contact dermatitis 692.[address] [facility] [address] [place] [id number] [place] [address] October, [facility] [address] [place] [id number] [place] [address] Sep, [facility] [address] [place] [id number] [place] [address] Sep, [facility] [address] [place] [id number] [place] [address] Aug, [facility] [address] [place] [id number] [place] [address] Aug, [facility] [address] [place] [id number] [place] [address] Aug, [facility] [address] [place] [address] Aug, [facility] [address] [place] [id number] [place] [address] Jul, [facility] [address] [id number] [address] Jul, [facility] [address] [place] [id number] [place] [address] Jul, [facility] [place] [facility] [address] [id number] [place] [address] Jul, 2014 [facility] [place] [facility] [address] [id number] [place] [address] Jul, 2014 [facility] [place] [facility] [address] [id number] [place] [address] Jul, [facility] [place] [facility] [address] [id number] [place] [address] May, [facility] [place] [facility] [address] [id number] [place] [address] May, [facility] [place] [facility] [address] [id number] [place] [address] May, [facility] [place] [facility] [address] [id number] [place] [address] May, [facility] [place] [facility] [address] [id number] [place] [address] May, [facility] [place] [facility] [address] [id number] [place] [address] May, [facility] [place] [facility] [address] [id number] [place] [address] Apr, [facility] [place] [facility] [address] [id number] [place] [address] Apr, [facility] [place] [facility] [address] [id number] [address] Apr, [facility] [place] [facility] [address] [id number] [place] [address] Apr, [facility] [place] [facility] [address] [id number] [place] [address] Mar, [facility] [place] [facility] [address] [id number] [place] [address] Mar, [facility] [place] [facility] [address] [id number] [place] [address] Feb, [facility] [place] [facility] [address] [id number] [place] [address] Feb, [facility] [place] [facility] [address] [id number] [place] [address] Jan, [facility] [place] [facility] [address] [id number] [place] [address] Jan, [facility] [place] [facility] [address] [id number] [place] [address] Dec, [facility] [place] [facility] [address] [id number] [place] [address] Dec, [facility] [place] [facility] [address] [id number] [place] [address] October, [facility] [place] [facility] [address] [id number] [place] [address] October, [facility] [place] [facility] [address] [id number] [place] [address] October, [facility] [place] [facility] [address] [id number] [place] [address] October, [facility] [place] [facility] [address] [id number] [place] [address] October, [facility] [place] [facility] [address] [id number] [place] [address] October, [facility] [place] [facility] [address] [id number] [place] [address] Sep, [facility] [place] [facility] [address] [id number] [place] [address] Sep, [facility] [place] [facility] [address] [id number] [place] [address] Sep, [facility] [place] [facility] [address] [id number] [place] [address] Sep, [facility] [place] [facility] [address] [id number] [place] [address] 10 Sep, 2013 [facility] [place] [facility] [address] [id number] [place] [address] Sep, [facility] [place] [facility] [address] [id number] [place] [address] Sep, [facility] [place] [facility] [address] [id number] [place] [address] Sep, [facility] [place] [facility] [address] [id number] [place] [address] Aug, [facility] [place] [facility] [address] [id number] [place] [address] Aug, [facility] [place] [facility] [address] [id number] [place] [address] Aug, [facility] [place] [facility] [address] [id number] [place] [address] Aug, [facility] [place] [facility] [address] [id number] [place] [address] Aug, [facility] [place] [facility] [address] [id number] [place] [address] Aug, [facility] [place] [facility] [address] [id number] [place] [address] Jul, [facility] [place] [facility] [address] [id number] [place] [address] Jul, [facility] [place] [facility] [address] [id number] [place] [address] Jul, [facility] [place] [facility] [address] [id number] [place] [address] Jul, [facility] [place] [facility] [address] [id number] [place] [address] May, [facility] [place] [facility] [address] [id number] [place] [address] May, [facility] [address] [id number] [place] [address] May, [facility] [place] [facility] [address] [id number] [place] [address] May, [facility] [address] [id number] [place] [address] Apr, [facility] [place] [facility] [address] [id number] [place] [address] Apr, [facility] [address] [id number] [place] [address] Apr, [facility] [place] [facility] [address] [id number] [place] [address] Apr, [facility] [address] [id number] [place] [address] Apr, [facility] [place] [facility] [address] [id number] [address] Apr, [facility] [place] [facility] [address] [id number] [place] [address] Apr, [facility] [place] [facility] [address] [id number] [place] [address] Apr, [facility] [place] [facility] [address] [id number] [place] [address] Mar, [facility] [place] [facility] [address] [id number] [place] [address] Dec, [facility] [place] [facility] [address] [id number] [address] Dec, [facility] [place] [facility] [address] [id number] [place] [address] Nov, [facility] [place] [facility] [address] [id number] [address] Nov, [facility] [place] [facility] [address] [id number] [place] [address] Nov, [facility] [place] [facility] [address] [id number] [place] [address] Sep, [facility] [place] [facility] [address] [id number] [place] [address] Aug, [facility] [place] [facility] [address] [id number] [place] [address] Aug, [facility] [place] [facility] [address] [id number] [place] [address] Aug, [facility] [place] [facility] [address] [id number] [place] [address] Aug, [facility] [place] [facility] [address] [id number] [place] [address] Jul, [facility] [place] [facility] [address] [id number] [place] [address] Jul, [facility] [place] [facility] [address] [id number] [place] [address] May, [facility] [place] [facility] [address] [id number] [place] [address] May, [facility] [place] [facility] [address] [id number] [place] [address] May, [facility] [place] [facility] [address] [id number] [place] [address] Apr, [facility] [place] [facility] [address] [id number] [place] [address] Apr, [facility] [place] [facility] [address] [id number] [place] [address] Apr, [facility] [place] [facility] [address] [id number] [place] [address] Apr, [facility] [place] [facility] [address] [id number] [place] [address] Apr, [facility] [place] [facility] [address] [id number] [place] [address] Apr, [facility] [place] [facility] [address] [id number] [place] [address] Mar, [facility] [place] [facility] [address] [id number] [place] [address] Mar, [facility] [place] [facility] [address] [id number] [place] [address] Mar, [facility] [place] [facility] [address] [id number] [place] [address] 14 Feb, 2012 [facility] [place] [facility] [address] [id number] [place] [address] Feb, [facility] [place] [facility] [address] [id number] [place] [address] Feb, [facility] [place] [facility] [address] [id number] [place] [address] Jan, [facility] [place] [facility] [address] [id number] [place] [address] Jan, [facility] [place] [facility] [address] [id number] [place] [address] Jan, [facility] [place] [facility] [address] [id number] [place] [address] Jan, [facility] [place] [facility] [address] [id number] [address] Dec, [facility] [place] [facility] [address] [id number] [place] [address] Dec, [facility] [place] [facility] [address] [facility] [id number] [place] [address] Nov, [facility] [place] [facility] [address] [id number] [place] [address] Nov, [facility] [place] [facility] [address] [id number] [place] [address] October, [facility] [address] [id number] [place] [address] October, [facility] [address] [id number] [place] [address] Sep, [facility] [address] [id number] [place] [address] Aug, [facility] [address] [id number] [place] [address] Aug, [facility] [address] [id number] [place] [address] Jul, [facility] [address] [id number] [place] [address] Jun, [facility] [address] [id number] [place] [address] Jun, [facility] [address] [id number] [place] [address] Jun, [facility] [address] [id number] [place] [address] Jun, [facility] [address] [id number] [place] [address] May, [facility] [address] [id number] [place] [address] May, [facility] [address] [id number] [place] [address] Mar, [facility] [address] [id number] [place] [address] Mar, [facility] [address] [id number] [place] [address] Feb, [facility] [address] [id number] [place] [address] Dec, [facility] [id number] [address] Aug, [facility] [id number] [address] Aug, [facility] [id number] [address] May, [facility] [id number] [address] Jan, [facility] [id number] [address] Apr, [facility] [id number] [address] Apr, [facility] [id number] [address] Jan, [facility] [id number] [address] Aug, IMMUNIZATIONS No Known Immunizations SOCIAL HISTORY Never Assessed REASON FOR VISIT Alzheimers has been getting worse, PT has had some lower back pain along with le g pain and feet and toes going numb-Opdyke MA PLAN OF CARE Activity Details Follow Up 4 Weeks Reason:dm2 ooc VITAL SIGNS Height 64 in 2017-08-16 Weight 164.8 lbs 2017-08-16 Temperature 97.9 degrees Fahrenheit 2017-08-16 Heart Rate 76 bpm 2017-08-16 Respiratory Rate 20 2017-08-16 BMI 28.28 kg/m2 2017-08-16 Blood pressure systolic 128 mmHg 2017-08-16 Blood pressure diastolic 78 mmHg 2017-08-16 MEDICATIONS Medication Instructions Dosage Frequency Start Date End Date Duration Status Diclofenac Sodium 75 MG Orally Twice a day 1 tablet with food or milk 12h Aug, Nov, 30 day(s) Active Actos 30 MG Orally Once a day 1 tablet 24h Jul, 30 day(s) Active Neurontin 300 MG Orally Three times a day 1 capsule 8h Aug, 30 day(s) Active RESULTS No Results PROCEDURES Procedure Date Ordered Result Body Site [facility] VISIT ESTABLISHED PATIENT August 16, 2017 INSTRUCTIONS MEDICATIONS ADMINISTERED No Known Medications [...]
--- OUTSIDE RECORDS SUMMARY | 2019-01-20 15:01 | XMS REPORT ---
Author Author HERMILO VERDUGO Organization [employer] Address Unknown Phone Unavailable Care Team Providers Care Pharmacovigilance Specialist Name Role Phone HERMILO VERDUGO CP Unavailable Allergies No Known Allergies Problems Problem Type Condition Code Onset Dates Condition Status Problem Chronic obstructive pulmonary disease, unspecified COPD type J44.9 Active Problem Diabetes E11.9 Active Problem Diabetes type 2, controlled E11.9 Active Problem Acute exacerbation of chronic obstructive pulmonary disease (COPD) J44.1 Active Problem Corns L84 Active Problem Flat foot [pes planus] (acquired), right foot M21.41 Active Problem Exertional dyspnea R06.09 Active Problem Polyneuropathy G62.9 Active Medications No Known Medications Results No Known Results Summary Purpose [employer] Submission
--- OUTSIDE RECORDS SUMMARY | 2019-01-20 15:01 | XMS REPORT ---
Author Author MANDO JACKSON Organization [facility] Address [address] [place] [address] Care Team Providers Care Rope Machine Setter Name Role Phone MANDO JACKSON Unavailable PROBLEMS Type Condition ICD9-CM Code [id number] Code Onset Dates Condition Status SNOMED Code Problem Exertional dyspnea R06.09 Active 93085886 Problem Anxiety F41.9 Active 38282407 Problem Diabetes type 2, controlled E11.9 Active 03371481 Problem Chronic obstructive pulmonary disease, unspecified COPD type J44.9 Active 70396279 Problem Flat foot [pes planus] (acquired), right foot M21.41 Active 89445753 Problem Corns L84 Active 451662503 Problem Polyneuropathy G62.9 Active 44619239 Problem Controlled type 2 diabetes mellitus without complication, without long- term current use of insulin E11.9 Active 916786117 Problem Other Alzheimers disease G30.8 Active 61990576 Problem Acute exacerbation of chronic obstructive pulmonary disease (COPD) J44.1 Active 334629609 Problem Diabetes E11.9 Active 952778739 Problem Alzheimers disease with early onset G30.0 Active 1405448 Problem Dementia in other diseases classified elsewhere without behavioral disturbance F02.80 Active 685198577 ALLERGIES Substance Reaction Event Type Date Status Sulfur swelling Drug Allergy Mar, Active Lisinopril hypotension Drug Allergy Mar, Active Cozaar hypotension Drug Allergy Mar, Active Bactrim Unknown Drug Allergy Mar, Active Aspirin Unknown Drug Allergy Mar, Active SOCIAL HISTORY No smoking Hx information available PLAN OF CARE Activity Details Follow Up prn Reason: VITAL SIGNS Height 64 in 2016-04-10 Weight 173.0 lbs 2016-04-10 Temperature 97.3 degrees Fahrenheit 2016-04-10 Heart Rate 60 bpm 2016-04-10 Respiratory Rate 18 2016-04-10 BMI 29.69 kg/m2 2016-04-10 Blood pressure systolic 128 mmHg 2016-04-10 Blood pressure diastolic 72 mmHg 2016-04-10 MEDICATIONS Medication Instructions Dosage Frequency Start Date End Date Duration Status Albuterol Sulfate (2.5 MG/3ML) 0.083% Inhalation Three times a day. DX: J44.9 3 ml Apr, Active PredniSONE 20 MG Orally Once a day 1 tablet 24h Mar, Apr, 5 days Active Augmentin 875-125 MG Orally every 12 hrs 1 tablet 12h Mar, Apr, 10 day(s) Active ProAir HFA 108 (90 Base) MCG/ACT Inhalation 4 times a day 2 puffs as needed 6h Apr, Active MetFORMIN HCl ER 500 MG Orally 2 times a day 1 tablet with evening meal 12h Mar, 30 day(s) Active Sertraline HCl 100 MG Orally Once a day 1 tablet 24h Mar, Active Ibuprofen 200 MG Orally every 6 hrs 1 tablet as needed 6h Active Ativan 0.5 MG Orally twice a day 1 tablet as needed 12h Jul, Active RESULTS No Results PROCEDURES Procedure Date Ordered Related Diagnosis Body Site [facility] VISIT ESTABLISHED PATIENT Apr 10, 2016 Office Visit, Est Pt., Level 3 Apr 10, 2016 IMMUNIZATIONS No Known Immunizations
--- OUTSIDE RECORDS SUMMARY | 2019-01-20 15:01 | XMS REPORT ---
Author Author CAROL BRYAN Organization [facility] Address [address] [place] [address] Care Team Providers Care Newsperson Name Role Phone CAROL BRYAN Unavailable PROBLEMS Type Condition ICD9-CM Code [id number] Code Onset Dates Condition Status SNOMED Code Assessment Acute bronchitis, unspecified organism J20.9 Feb, Active 89394271 Problem Diabetes type 2, controlled E11.9 Active 75098023 Problem Exertional dyspnea R06.09 Active 42581977 Problem Flat foot [pes planus] (acquired), right foot M21.41 Active 26444358 Problem Chronic obstructive pulmonary disease, unspecified COPD type J44.9 Active 19807524 Problem Polyneuropathy G62.9 Active 00979325 Problem Corns L84 Active 077870378 ALLERGIES Substance Reaction Event Type Date Status Sulfur swelling Drug Allergy Feb, Active Lisinopril hypotension Drug Allergy Feb, Active Cozaar hypotension Drug Allergy Feb, Active Bactrim Unknown Drug Allergy Feb, Active Aspirin Unknown Drug Allergy Feb, Active SOCIAL HISTORY No smoking Hx information available PLAN OF CARE VITAL SIGNS Height 64 in 2016-03-09 Weight 174.4 lbs 2016-03-09 Heart Rate 60 bpm 2016-03-09 Respiratory Rate 18 2016-03-09 Oximetry 99 % 2016-03-09 BMI 29.93 kg/m2 2016-03-09 Blood pressure systolic 138 mmHg 2016-03-09 Blood pressure diastolic 84 mmHg 2016-03-09 MEDICATIONS Medication Instructions Dosage Frequency Start Date End Date Duration Status Azithromycin 250 MG Orally Once a day 2 tablets on the first day, then 1 tablet daily for 4 days 24h Feb, Mar, 5 day(s) Active Sertraline HCl 100 MG Orally Once a day 1 tablet 24h Mar, Active PredniSONE 20 mg Orally Once a day 1 tablet 24h Feb, Mar, 05 days Active ProAir HFA 108 (90 Base) MCG/ACT Inhalation 4 times a day 2 puffs as needed 6h 18 Apr, 2015 Active MetFORMIN HCl ER 500 MG Orally 2 times a day 1 tablet with evening meal 12h 05 Mar, 2015 30 day(s) Active Ativan 0.5 MG Orally twice a day 1 tablet as needed 12h 29 Jul, 2015 Active Albuterol Sulfate (2.5 MG/3ML) 0.083% Inhalation Three times a day. DX: J44.9 3 ml Apr, Active RESULTS Name Result Date Reference Range Xray : Chest (IN HOUSE) 2016-03-09 PROCEDURES Procedure Date Ordered Related Diagnosis Body Site MEASURE BLOOD OXYGEN LEVEL Mar 09, 2016 CHEST X-RAY Mar 09, 2016 Office Visit, Est Pt., Level 3 Mar 09, 2016 [facility] VISIT ESTABLISHED PATIENT Mar 09, 2016 IMMUNIZATIONS No Known Immunizations
--- OUTSIDE RECORDS SUMMARY | 2019-01-20 15:01 | XMS REPORT ---
Author Author LAYLA MCDERMOTT [facility] [employer] Address Unknown Phone Unavailable Care Team Providers Care Piccoloist Name Role Phone LAYLA MCDERMOTT CP Unavailable Allergies, Adverse Reactions, Alerts Substance Reaction Event Type Sulfur swelling Drug Allergy Lisinopril hypotension Drug Allergy Cozaar hypotension Drug Allergy Bactrim Info Not Available Drug Allergy Aspirin Info Not Available Drug Allergy Problems Problem Type Condition Code Onset Dates Condition Status Assessment Depression F32.9 Active Assessment FH: memory loss Z82.0 Active Problem Exertional dyspnea R06.09 Active Problem Polyneuropathy G62.9 Active Problem Diabetes type 2, controlled E11.9 Active Problem Chronic obstructive pulmonary disease, unspecified COPD type J44.9 Active Assessment Generalized anxiety disorder F41.1 Active Problem Corns L84 Active Problem Flat foot [pes planus] (acquired), right foot M21.41 Active Medications No Known Medications Procedures Procedure Coding System Code Date Psychotherapy, patient &/family, 30 minutes, established patient CPT-4 [id number] September 24, 2015 Results No Known Results Summary Purpose [employer] Submission
--- OUTSIDE RECORDS SUMMARY | 2019-01-20 15:01 | XMS REPORT ---
Author Author HERMILO VERDUGO Organization [facility] Address [address] [place] [address] Care Team Providers Care Fur Designer Name Role Phone KARTIK HERMILO Unavailable PROBLEMS Type Condition ICD9-CM Code BAP64-SI Code Onset Dates Condition Status SNOMED Code Problem Diabetes E11.9 Active 381522939 Problem Uncontrolled type 2 diabetes mellitus without complication, without long- term current use of insulin E11.65 Active 768116659 Problem Alzheimers disease with early onset G30.0 Active 3503960 Problem Corns L84 Active 400697630 Problem Flat foot [pes planus] (acquired), right foot M21.41 Active 29990035 Problem Anxiety F41.9 Active 42935867 Problem Type 2 diabetes mellitus with unspecified diabetic retinopathy without macular edema E11.319 Active 549227040 Problem Type 2 diabetes mellitus with hyperglycemia E11.65 Active [id number] Problem Diabetic polyneuropathy associated with type 2 diabetes mellitus E11.42 Active 89429020 Problem Moderate episode of recurrent major depressive disorder F33.1 Active 716691201 Problem Major depressive disorder, recurrent, in full remission F33.42 Active 584243166 Problem Arthritis M19.90 Active 7680008 ALLERGIES Substance Reaction Event Type Date Status SulfADIAZINE shortness of breath Drug Allergy May, Active Lisinopril hypotension Drug Allergy May, Active Cozaar hypotension Drug Allergy May, Active Aspirin Unknown Drug Allergy May, Active ENCOUNTERS Encounter Location Date Diagnosis [facility] [address] [facility] [id number] [address] October, Type 2 diabetes mellitus with hyperglycemia E11.65 and Type 2 diabetes mellitus with unspecified diabetic retinopathy without macular edema E11.319 [facility] [address] [facility] [id number], [place] [address] October, Diabetes E11.9 ; Alzheimers disease with early onset G30.0 ; Arthritis M19.90 ; Diabetic polyneuropathy associated with type 2 diabetes mellitus E11.42 and Major depressive disorder, recurrent, in full remission F33.[address] [address] Sep, [address] [address] Sep, Dysfunction of both eustachian tubes H69.[address] [address] Aug, Alzheimer''s disease with early onset G30.0 ; Dementia in other diseases classified elsewhere with behavioral disturbance F02.81 ; 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 and Type 2 diabetes mellitus with hyperglycemia E11.[address] [address] Jul, [address] [address] Jul, Alzheimer''s disease with early onset G30.0 ; Dementia in other diseases classified elsewhere with behavioral disturbance F02.81 and Uncontrolled type 2 diabetes mellitus without complication, without long-term current use of insulin E11.[address] [address] May, Diabetes type 2, controlled E11.9 ; Bilateral otitis media with effusion H65.93 and Dizziness R42 [facility] [address] [place] [address] Apr, Dysuria R30.0 and Acute cystitis with hematuria N30.[address] [address] Apr, Moderate episode of recurrent major depressive disorder F33.1 [facility] [address] [place], [place] [id number] [place] [address] Mar, Acute cystitis without hematuria N30.[address] [place] [address] Feb, Uncontrolled type 2 diabetes mellitus without complication, without long-term current use of insulin E11.65 ; Other Alzheimer''s disease G30.8 and Dementia in other diseases classified elsewhere without behavioral disturbance F02.[address] [address] Jan, Diabetes type 2, controlled E11.9 and Alzheimers disease with early onset G30.0 [facility] [address] [address] Dec, Allergic contact dermatitis due to plants, except food L23.7 [facility] [address] [address] Dec, Dysuria R30.0 and Candidiasis of female genitalia B37.[address] [address] Dec, Diabetes E11.9 and Alzheimers disease with early onset G30.0 [facility] [address] [address] Nov, Acute exacerbation of chronic obstructive pulmonary disease (COPD) J44.1 and Vaginal candidiasis B37.[address] [address] 15 Nov, 2016 Controlled type 2 diabetes mellitus without complication, without long-term current use of insulin E11.9 and Other Alzheimers disease G30.[address] [address] October, OME (otitis media with effusion), bilateral H65.93 ; Dizziness R42 and Diabetes E11.9 [facility] [address] [address] Sep, Vertigo R42 ; Heart murmur R01.1 and Dysfunction of inner ear, bilateral H83.[address] [address] Aug, Acute suppurative otitis media of both ears without spontaneous rupture of tympanic membranes, recurrence not specified H66.003 [facility] [address] [place] [address] Aug, Vaginal irritation N89.8 and Acute exacerbation of chronic obstructive pulmonary disease (COPD) J44.1 [place] [address] [address] Jul, Dementia in other diseases classified elsewhere without behavioral disturbance F02.80 [place] [address] [address] Jul, [place] [address] [address] Jun, Diabetes type 2, controlled E11.9 ; Alzheimers disease with early onset G30.0 and Dementia in other diseases classified elsewhere without behavioral disturbance F02.80 [place] [address] [address] May, Diabetes type 2, controlled E11.9 [facility] [address] [place] [address] May, Vaginal candidiasis B37.3 and Dysuria R30.0 [facility] [address] [address] 05 May, 2016 Cutaneous abscess of head [any part, except face] L02.811 ; Cellulitis of head [any part, except face] L03.811 ; COPD exacerbation J44.1 and Wheezing R06.[address] [address] Apr, [address] [address] Apr, Diabetes E11.9 ; Acute upper respiratory infection, unspecified J06.9 and Vagina, candidiasis B37.3 [facility] [address] [place] [address] [address] Mar, Acute exacerbation of chronic obstructive pulmonary disease (COPD) J44.1 [facility] [address] [place] [id number] [place] [address] 07 Mar, 2016 Diabetes type 2, controlled E11.9 [facility] [address] [place] [id number] [place] [address] Feb, Acute bronchitis, unspecified organism J20.9 [facility] [address] [place] [id number] [place] [address] Feb, Controlled type 2 diabetes mellitus without complication, without long-term current use of insulin E11.9 [place] [address] [place] [id number] [place] [address] Jan, Controlled type 2 diabetes mellitus without complication, without long-term current use of insulin E11.9 and Anxiety F41.9 [place] [address] [place] [id number] [place] [address] Dec, [facility] [address] [place] [id number] [place] [address] Nov, Diabetes type 2, controlled E11.9 [place] [address] [place] [id number] [place] [address] Nov, Acute pain of left shoulder M25.512 [facility] [address] [place] [id number] [place] [address] October, Cellulitis of face L03.211 [facility] [address] [place] [id number] [place] [address] October, Diabetes type 2, controlled E11.9 [place] [address] [place] [id number] [place] [address] October, Diabetes type 2, controlled E11.9 [facility] [address] [place] [address] Sep, Generalized anxiety disorder F41.1 ; Depression F32.9 and FH: memory loss Z82.0 [facility] [address] [address] Sep, FH: memory loss Z82.0 ; Major depression, recurrent F33.9 and Anxiety disorder, unspecified F41.9 [facility] [address] [place] [id number] [place] [address] Aug, PTSD (post-traumatic stress disorder) F43.10 ; Generalized anxiety disorder F41.1 and FH: memory loss Z82.0 [place] [address] [place] [id number] [place] [address] Aug, FH: memory loss Z82.0 ; Depression F32.9 and PTSD (post-traumatic stress disorder) F43.10 [place] [address] [place] [id number] [place] [address] Jul, Major depression, recurrent F33.9 ; Generalized anxiety disorder F41.1 and Alzheimer disease G30.9 [place] [address] [place] [id number] [place] [address] Jul, Diabetes E11.9 and Mood disorder F39 [place] [address] [place] [id number] [place] [address] 17 Jul, 2015 Dental examination Z01.20 [place] [address] [place] [id number] [place] [address] Apr, Exertional dyspnea R06.09 and Chronic obstructive pulmonary disease, unspecified COPD type J44.9 [facility] [address] [place] [id number] [place] [address] Mar, [facility] [address] [place] [id number] [place] [address] Mar, Diabetes E11.9 [facility] [address] [place] [id number] [place] [address] 05 Mar, 2015 Diabetes E11.9 ; COPD (chronic obstructive pulmonary disease) J44.9 and Hip pain, right M25.551 [facility] [address], [place] [address] Dec, [facility] [address] [place] [id number] [place] [address] Nov, COPD exacerbation 491.21 and Wheezing 786.07 [facility] [address] [place] [id number] [place] [address] October, Acute contact dermatitis 692.9 and Anhedonia 780.99 [facility] [address] [place] [id number] [place] [address] October, [facility] [address] [place] [id number] [place] [address] Sep, [facility] [address] [place] [id number] [place] [address] Sep, [facility] [address] [place] [id number] [place] [address] Aug, [facility] [address] [place] [id number] [place] [address] Aug, [facility] [address] [place] [id number] [place] [address] Aug, [facility] [address] [place] [address] Aug, [facility] [address] [place] [address] Jul, [facility] [address] [address] Jul, [facility] [address] [place] [id number] [place] [address] Jul, [facility] [address] [address] Jul, [facility] [address] [place] [id number] [place] [address] Jul, 2014 [facility] [place] [facility] [address] [id number] [place] [address] Jul, [facility] [place] [facility] [address] [id number] [place] [address] May, [facility] [place] [facility] [address] [id number] [place] [address] May, [facility] [place] [facility] [address] [id number] [place] [address] May, [facility] [place] [facility] [address] [id number] [place] [address] May, [facility] [place] [facility] [address] [id number] [place] [address] May, [facility] [place] [facility] [address] [facility] [id number] [place] [address] May, [facility] [place] [facility] [address] [id number] [place] [address] Apr, [facility] [place] [facility] [address] [id number] [place] [address] Apr, [facility] [place] [facility] [address] [facility] [id number] [place] [address] Apr, [facility] [place] [facility] [address] [id number] [place] [address] Apr, [facility] [place] [facility] [address] [id number], [place] [address] Mar, [facility] [place] [facility] [address] [id number] [place] [address] Mar, [facility] [place] [facility] [address] [id number], [place] [address] Feb, [facility] [place] [facility] [address] [facility] [id number], [place] [address] 08 Feb, 2014 [facility] [place] [facility] [address] [id number] [place] [address] Jan, [facility] [place] [facility] [address] [id number] [place] [address] Jan, [facility] [place] [facility] [address] [id number] [place] [address] Dec, [facility] [place] [facility] [address] [id number] [place] [address] Dec, [facility] [place] [facility] [address] [id number] [place] [address] October, [facility] [place] [facility] [address] [id number] [place] [address] October, [facility] [place] [facility] [address] [id number] [place] [address] October, [facility] [place] [facility] [address] [id number] [place] [address] October, [facility] [place] [facility] [address] [id number] [place] [address] October, [facility] [place] [facility] [address] [id number] [place] [address] October, [facility] [place] [facility] [address] [id number] [place] [address] Sep, [facility] [place] [facility] [address] [id number] [place] [address] Sep, [facility] [place] [facility] [address] [id number] [place] [address] Sep, [facility] [place] [facility] [address] [id number] [place] [address] Sep, [facility] [place] [facility] [address] [id number] [place] [address] Sep, [facility] [place] [facility] [address] [id number] [place] [address] Sep, [facility] [place] [facility] [address] [id number] [place] [address] Sep, [facility] [place] [facility] [address] [id number] [place] [address] 08 Sep, 2013 [facility] [place] [facility] [address] [id number] [place] [address] 26 Aug, 2013 [facility] [place] [facility] [address] [id number] [place] [address] 14 Aug, 2013 [facility] [place] [facility] [address] [id number] [place] [address] 14 Aug, 2013 [facility] [place] [facility] [address] [id number] [place] [address] Aug, [facility] [place] [facility] [address] [id number] [place] [address] Aug, [facility] [place] [facility] [address] [id number] [place] [address] Aug, [facility] [place] [facility] [address] [id number] [place] [address] Jul, [facility] [place] [facility] [address] [id number] [place] [address] Jul, [facility] [place] [facility] [address] [id number] [place] [address] Jul, [facility] [place] [facility] [address] [id number] [place] [address] Jul, [facility] [place] [facility] [address] [id number] [place] [address] May, [facility] [place] [facility] [address] [id number] [place] [address] May, [facility] [place] [facility] [address] [id number] [place] [address] May, [facility] [place] [facility] [address] [id number] [place] [address] May, [facility] [address] [id number] [place] [address] Apr, [facility] [place] [facility] [address] [id number] [place] [address] Apr, [facility] [address] [id number] [place] [address] Apr, [facility] [place] [facility] [address] [id number] [place] [address] Apr, [facility] [address] [id number] [place] [address] Apr, [facility] [address] [id number] [place] [address] Apr, [facility] [address] [id number] [place] [address] Apr, [facility] [address] [id number] [place] [address] Apr, [facility] [place] [facility] [address] [id number] [place] [address] Mar, [facility] [address] [id number] [place] [address] Dec, [facility] [place] [facility] [address] [id number] [place] [address] Dec, [facility] [place] [facility] [address] [id number] [place] [address] Nov, [facility] [place] [facility] [address] [id number] [place] [address] Nov, [facility] [place] [facility] [address] [id number] [place] [address] Nov, [facility] [place] [facility] [address] [id number] [place] [address] Sep, [facility] [place] [facility] [address] [id number] [place] [address] Aug, [facility] [place] [facility] [address] [id number] [place] [address] Aug, [facility] [place] [facility] [address] [id number] [place] [address] Aug, [facility] [place] [facility] [address] [id number] [place] [address] Aug, [facility] [place] [facility] [address] [id number] [place] [address] Jul, [facility] [place] [facility] [address] [id number] [place] [address] Jul, [facility] [place] [facility] [address] [facility] [id number] [place] [address] May, [facility] [place] [facility] [address] [id number] [place] [address] May, [facility] [place] [facility] [address] [id number] [place] [address] May, [facility] [place] [facility] [address] [id number] [place] [address] Apr, [facility] [place] [facility] [address] [id number] [place] [address] Apr, [facility] [place] [facility] [address] [id number], [place] [address] Apr, [facility] [place] [facility] [address] [id number] [place] [address] Apr, [facility] [place] [facility] [address] [id number] [place] [address] Apr, [facility] [place] [facility] [address] [id number] [place] [address] Apr, [facility] [place] [facility] [address] [id number] [place] [address] Mar, [facility] [place] [facility] [address] [id number] [place] [address] 29 Mar, 2012 [facility] [place] [facility] [address] [id number] [place] [address] Mar, [facility] [place] [facility] [address] [id number] [place] [address] 14 Feb, 2012 [facility] [place] [facility] [address] [id number] [place] [address] Feb, [facility] [place] [facility] [address] [id number] [place] [address] Feb, [facility] [place] [facility] [address] [id number] [place] [address] Jan, [facility] [place] [facility] [address] [id number] [place] [address] Jan, [facility] [place] [facility] [address] [id number] [place] [address] Jan, [facility] [place] [facility] [address] [id number] [place] [address] Jan, [facility] [place] [facility] [address] [id number] [place] [address] Dec, [facility] [place] [facility] [address] [id number] [place] [address] Dec, [facility] [place] [facility] [address] [id number] [place] [address] Nov, [facility] [place] [facility] [address] [id number] [place] [address] Nov, [facility] [place] [facility] [address] [id number] [place] [address] October, [facility] [place] [facility] [address] [id number] [place] [address] October, [facility] [place] [facility] [address] [id number] [place] [address] Sep, [facility] [address] [id number] [place] [address] Aug, [facility] [place] [facility] [address] [id number] [place] [address] Aug, [facility] [place] [facility] [address] [id number] [place] [address] Jul, [facility] [address] [id number] [place] [address] Jun, [facility] [place] [facility] [address] [id number] [place] [address] Jun, [facility] [address] [id number] [place] [address] Jun, [facility] [address] [id number] [place] [address] Jun, [facility] [address] [id number] [place] [address] May, [facility] [address] [id number] [place] [address] May, [facility] [place] [facility] [address] [id number] [place] [address] Mar, [facility] [place] [facility] [address] [id number] [place] [address] Mar, [facility] [place] [facility] [address] [id number] [place] [address] Feb, [facility] [place] [facility] [address] [id number] [place] [address] Dec, [facility] [place] [facility] [address] [id number] [place] [address] Aug, [facility] [place] [facility] [address] [id number], [place] [address] Aug, [facility] [address] [facility] [id number], [place] [address] May, [facility] [address] [facility] [id number], [place] [address] Jan, [facility] [address] [facility] [id number], [place] [address] Apr, [facility] [address] [facility] [id number], [place] [address] Apr, [facility] [address] [facility] [id number], [place] [address] Jan, [facility] [address] [facility] [id number], [place] [address] Aug, IMMUNIZATIONS No Known Immunizations SOCIAL HISTORY Never Assessed REASON FOR VISIT Alzheimer''s getting worse, PT also just doesnt feel well and also depression-Karen brink MA PLAN OF CARE Activity Details Follow Up 4 Weeks Reason:dm2 uncontrolled VITAL SIGNS Height 64 in 2017-06-03 Weight 165.7 lbs 2017-06-03 Temperature 97.8 degrees Fahrenheit 2017-06-03 Heart Rate 78 bpm 2017-06-03 Respiratory Rate 18 2017-06-03 BMI 28.44 kg/m2 2017-06-03 Blood pressure systolic 128 mmHg 2017-06-03 Blood pressure diastolic 82 mmHg 2017-06-03 MEDICATIONS Medication Instructions Dosage Frequency Start Date End Date Duration Status GlyBURIDE 5 mg Orally 2 times a day 1 tablet with breakfast or the first main meal of the day 12h May, 30 day(s) Active Sertraline HCl 50 mg Orally Once a day 1 tablet 24h 28 Feb, 2017 Active RESULTS No Results PROCEDURES Procedure Date Ordered Result Body Site GLYCATED HEMOGLOBIN TEST Jun 03, 2017 MICROALBUMIN, SEMIQUANT Jun 03, 2017 [facility] VISIT ESTABLISHED PATIENT Jun 03, 2017 LAB NOT BILLED BY [facility] Jun 03, 2017 INSTRUCTIONS MEDICATIONS ADMINISTERED No Known Medications [...]
--- OUTSIDE RECORDS SUMMARY | 2019-01-20 15:02 | XMS REPORT ---
Author HERMILO Muhammad [facility] [place] eClinicalWorks Address Unknown Phone Unavailable Care Team Providers Care Director Child Abuse Therapy Name Role Phone HERMILO VERDUGO CP Unavailable Allergies, Adverse Reactions, Alerts Substance Reaction Event Type Lisinopril hypotension Drug Allergy Cozaar hypotension Drug Allergy Bactrim Info Not Available Drug Allergy Aspirin Info Not Available Drug Allergy Problems Problem Type Condition Code Onset Dates Condition Status Problem Unspecified breast screening V76.10 Active Problem Postcoital bleeding 626.7 Active Problem Routine gynecological examination V72.31 Active Problem Polyneuropathy in diabetes 357.2 Active Problem Corns and callosities 700 Active Problem Diabetes E11.9 Active Problem Unspecified renal failure 586 Active Problem Postmenopausal atrophic vaginitis 627.3 Active Problem Flat foot 734 Active Problem Chronic airway obstruction, not elsewhere classified 496 Active Assessment Hip pain, right M25.551 Active Assessment COPD (chronic obstructive pulmonary disease) J44.9 Active Assessment Diabetes E11.9 Active Medications Medication Code System Code Instructions Start Date End Date Status Dosage Naproxen [facility] [address]-27 500 MG Orally every 12 hrs Mar 18, 2015 1 tablet as needed Symbicort [facility] [address]-29 160-4.5 MCG/ACT Inhalation Twice a day December 11, 2014 2 puffs MetFORMIN HCl ER [facility] [address]-29 500 MG Orally 2 times a day Mar 18, 2015 1 tablet with evening meal Sertraline HCl [facility] [address]-02 100 MG Orally Once a day Mar 18, 2015 1 tablet Procedures Procedure Coding System Code Date GLYCATED HEMOGLOBIN TEST CPT-4 30766 Mar 18, 2015 [facility] VISIT ESTABLISHED PATIENT CPT-4 G0467 Mar 18, 2015 X-RAY EXAM OF HIP CPT-4 46108 Mar 18, 2015 [facility] CPT-4 NOBLL Mar 18, 2015 Office Visit, Est Pt., Level 3 CPT-4 56084 Mar 18, 2015 VENIPUNCT, ROUTINE* CPT-4 14958 Mar 18, 2015 Vital Signs Date/Time: Mar 18, 2015 Temperature 97.1 F Weight 173.6 lbs Height 64 in BMI 29.80 Index Blood Pressure Diastolic 88 mmHg Blood Pressure Systolic 132 mmHg Cardiac Monitoring Heart Rate 68 bpm Results Name Result Date Reference Range Unit Abnormality Flag A1C (IN HOUSE) Summary Purpose eClinicalWorks Submission
--- OUTSIDE RECORDS SUMMARY | 2019-01-20 15:02 | XMS REPORT ---
Author Author PK Travis Organization [facility] Address [address] [place] [address] Care Team Providers Care Vascular Technologist Name Role Phone PK Travis Unavailable PROBLEMS Type Condition ICD9-CM Code MXM13-NP Code Onset Dates Condition Status SNOMED Code Problem Dementia in other diseases classified elsewhere without behavioral disturbance F02.80 Active 719157468 Problem Controlled type 2 diabetes mellitus without complication, without long- term current use of insulin E11.9 Active 474912704 Problem Other Alzheimers disease G30.8 Active 40833459 Problem 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 Active 81049842 Problem Type 2 diabetes mellitus with hyperglycemia E11.65 Active [id number] Problem Moderate episode of recurrent major depressive disorder F33.1 Active 379128923 Problem Uncontrolled type 2 diabetes mellitus without complication, without long- term current use of insulin E11.65 Active 179598656 Problem Dementia in other diseases classified elsewhere with behavioral disturbance F02.81 Active 809474264 Problem Alzheimer''s disease with early onset G30.0 Active 9189667 Problem Polyneuropathy G62.9 Active 58638660 Problem Flat foot [pes planus] (acquired), right foot M21.41 Active 74725824 Problem Corns L84 Active 341014448 Problem Exertional dyspnea R06.09 Active 98759838 Problem Anxiety F41.9 Active 41330157 Problem Diabetes E11.9 Active 309394355 Problem Chronic obstructive pulmonary disease, unspecified COPD type J44.9 Active 79115694 Problem Acute exacerbation of chronic obstructive pulmonary disease (COPD) J44.1 Active 638716918 Problem Diabetes type 2, controlled E11.9 Active 51928949 Problem Alzheimers disease with early onset G30.0 Active 0412703 ALLERGIES Substance Reaction Event Type Date Status SulfADIAZINE shortness of breath Drug Allergy Dec, Active Lisinopril hypotension Drug Allergy Dec, Active Cozaar hypotension Drug Allergy Dec, Active Aspirin Unknown Drug Allergy Dec, Active ENCOUNTERS Encounter Location Date Diagnosis [place] [address] [id number] [place] [address] October, [place] [id number] [place] [address] Aug, Alzheimer''s disease with early onset G30.0 ; Dementia in other diseases classified elsewhere with behavioral disturbance F02.81 ; 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 and Type 2 diabetes mellitus with hyperglycemia E11.65 [place] [id number] [place] [address] Jul, [place] [id number] [place] [address] Jul, Alzheimer''s disease with early onset G30.0 ; Dementia in other diseases classified elsewhere with behavioral disturbance F02.81 and Uncontrolled type 2 diabetes mellitus without complication, without long-term current use of insulin E11.65 [place] [id number] [place] [address] May, Diabetes type 2, controlled E11.9 ; Bilateral otitis media with effusion H65.93 and Dizziness R42 [facility] [id number] [place] [address] 17 Apr, 2017 Dysuria R30.0 and Acute cystitis with hematuria N30.01 [place] [id number] [place] [address] 02 Apr, 2017 Moderate episode of recurrent major depressive disorder F33.1 [facility] [id number] [place] [address] 18 Mar, 2017 Acute cystitis without hematuria N30.00 [place] [id number] [place] [address] 28 Feb, 2017 Uncontrolled type 2 diabetes mellitus without complication, without long-term current use of insulin E11.65 ; Other Alzheimer''s disease G30.8 and Dementia in other diseases classified elsewhere without behavioral disturbance F02.80 [place] [id number] [place] [address] Jan, Diabetes type 2, controlled E11.9 and Alzheimers disease with early onset G30.0 [facility] [place] [address] [address] Dec, Allergic contact dermatitis due to plants, except food L23.7 [facility] [place] [address] [address] Dec, Dysuria R30.0 and Candidiasis of female genitalia B37.[address] [address] Dec, Diabetes E11.9 and Alzheimers disease with early onset G30.0 [facility] [place] [address] [address] Nov, Acute exacerbation of chronic obstructive pulmonary disease (COPD) J44.1 and Vaginal candidiasis B37.[address] [address] Nov, Controlled type 2 diabetes mellitus without complication, without long-term current use of insulin E11.9 and Other Alzheimers disease G30.8 [place] [address] [address] October, OME (otitis media with effusion), bilateral H65.93 ; Dizziness R42 and Diabetes E11.9 [facility] [place] [id number] [place] [address] Sep, Vertigo R42 ; Heart murmur R01.1 and Dysfunction of inner ear, bilateral H83.93 [place] [address] [address] Aug, Acute suppurative otitis media of both ears without spontaneous rupture of tympanic membranes, recurrence not specified H66.003 [facility] [address] [place] [address] Aug, Vaginal irritation N89.8 and Acute exacerbation of chronic obstructive pulmonary disease (COPD) J44.1 [place] [id number] [place] [address] 27 Jul, 2016 Dementia in other diseases classified elsewhere without behavioral disturbance F02.80 [place] [address] [address] Jul, [place] [address] [address] Jun, Diabetes type 2, controlled E11.9 ; Alzheimers disease with early onset G30.0 and Dementia in other diseases classified elsewhere without behavioral disturbance F02.80 [place] [address] [address] May, Diabetes type 2, controlled E11.9 [facility] [address] [place] [address] May, Vaginal candidiasis B37.3 and Dysuria R30.0 [facility] [address] [address] 05 May, 2016 Cutaneous abscess of head [any part, except face] L02.811 ; Cellulitis of head [any part, except face] L03.811 ; COPD exacerbation J44.1 and Wheezing R06.2 [place] [id number] [place] [address] Apr, [address] [address] Apr, Diabetes E11.9 ; Acute upper respiratory infection, unspecified J06.9 and Vagina, candidiasis B37.3 [facility] [place] [id number] [place] [address] Mar, Acute exacerbation of chronic obstructive pulmonary disease (COPD) J44.1 [place] [address] [address] Mar, Diabetes type 2, controlled E11.9 [facility] [id number] [place] [address] Feb, Acute bronchitis, unspecified organism J20.9 [facility] [id number] [place] [address] Feb, Controlled type 2 diabetes mellitus without complication, without long-term current use of insulin E11.9 [facility] [id number] [place] [address] Jan, Controlled type 2 diabetes mellitus without complication, without long-term current use of insulin E11.9 and Anxiety F41.9 [place] [id number] [place] [address] Dec, [place] [id number] [place] [address] Nov, Diabetes type 2, controlled E11.9 [facility] [id number] [place] [address] Nov, Acute pain of left shoulder M25.512 [facility] [id number] [place] [address] October, Cellulitis of face L03.211 [place] [id number] [place] [address] October, Diabetes type 2, controlled E11.9 [facility] [id number] [place] [address] October, Diabetes type 2, controlled E11.9 [place] [id number] [place] [address] Sep, Generalized anxiety disorder F41.1 ; Depression F32.9 and FH: memory loss Z82.0 [facility] [address] [place] [address] Sep, FH: memory loss Z82.0 ; Major depression, recurrent F33.9 and Anxiety disorder, unspecified F41.9 [place] [id number] [place] [address] Aug, PTSD (post-traumatic stress disorder) F43.10 ; Generalized anxiety disorder F41.1 and FH: memory loss Z82.0 [place] [id number] [place] [address] Aug, FH: memory loss Z82.0 ; Depression F32.9 and PTSD (post-traumatic stress disorder) F43.10 [place] [id number] [place] [address] Jul, Major depression, recurrent F33.9 ; Generalized anxiety disorder F41.1 and Alzheimer disease G30.9 [place] [id number] [place] [address] Jul, Diabetes E11.9 and Mood disorder F39 [place] [id number] [place] [address] Jul, Dental examination Z01.20 [place] [id number] [place] [address] Apr, Exertional dyspnea R06.09 and Chronic obstructive pulmonary disease, unspecified COPD type J44.9 [place] [id number] [place] [address] Mar, [place] [id number] [place] [address] Mar, Diabetes E11.9 [place] [id number] [place] [address] Mar, Diabetes E11.9 ; COPD (chronic obstructive pulmonary disease) J44.9 and Hip pain, right M25.551 [place] [id number] [place] [address] Dec, [place] [address] [place] [address] [address] Nov, COPD exacerbation 491.21 and Wheezing 786.07 [facility] [id number] [place] [address] October, Acute contact dermatitis 692.9 and Anhedonia 780.99 [facility] [id number] [place] [address] October, [facility] [id number] [place] [address] Sep, [facility] [id number] [place] [address] Sep, [facility] [id number] [place] [address] Aug, [facility] [id number] [place] [address] Aug, [facility] [id number] [place] [address] Aug, [facility] [address] [place] [address] Aug, [facility] [id number] [place] [address] Jul, [facility] [address] [address] Jul, [facility] [address] [address] Jul, [facility] [address] [address] Jul, [facility] [id number] [address] Jul, [facility] [address] [address] Jul, [facility] [place] [facility] [address] [id number] [place] [address] May, [facility] [place] [facility] [address] [id number] [place] [address] May, [facility] [place] [facility] [address] [id number] [place] [address] May, [facility] [place] [facility] [address] [id number] [place] [address] May, [facility] [place] [facility] [address] [id number] [place] [address] May, [facility] [place] [facility] [address] [id number] [place] [address] May, [facility] [place] [facility] [address] [id number] [place] [address] Apr, [facility] [place] [facility] [address] [id number] [place] [address] Apr, [facility] [place] [facility] [address] [id number] [place] [address] Apr, [facility] [place] [facility] [address] [id number] [place] [address] Apr, [facility] [place] [facility] [address] [id number] [place] [address] Mar, [facility] [place] [facility] [address] [id number] [place] [address] Mar, [facility] [place] [facility] [address] [id number] [place] [address] Feb, [facility] [place] [facility] [address] [id number] [place] [address] Feb, [facility] [place] [facility] [address] [id number] [place] [address] Jan, [facility] [place] [facility] [address] [id number] [place] [address] Jan, [facility] [place] [facility] [address] [id number] [place] [address] Dec, [facility] [place] [facility] [address] [id number] [place] [address] Dec, [facility] [place] [facility] [address] [id number] [place] [address] October, [facility] [place] [facility] [address] [id number] [place] [address] October, [facility] [place] [facility] [address] [id number] [place] [address] October, [facility] [place] [facility] [address] [id number] [place] [address] October, [facility] [place] [facility] [address] [id number] [place] [address] October, [facility] [place] [facility] [address] [id number] [place] [address] October, [facility] [place] [facility] [address] [id number] [place] [address] Sep, [facility] [place] [facility] [address] [id number] [place] [address] Sep, [facility] [place] [facility] [address] [id number] [place] [address] Sep, [facility] [place] [facility] [address] [id number] [place] [address] Sep, [facility] [place] [facility] [address] [id number] [place] [address] Sep, [facility] [place] [facility] [address] [id number] [place] [address] Sep, [facility] [place] [facility] [address] [id number] [place] [address] Sep, [facility] [place] [facility] [address] [id number] [place] [address] 08 Sep, 2013 [facility] [address] [id number] [place] [address] 26 Aug, 2013 [facility] [place] [facility] [address] [id number] [place] [address] 14 Aug, 2013 [facility] [place] [facility] [address] [id number] [place] [address] 14 Aug, 2013 [facility] [place] [facility] [address] [id number] [place] [address] 13 Aug, 2013 [facility] [address] [id number] [place] [address] 13 Aug, 2013 [facility] [place] [facility] [address] [id number] [place] [address] 07 Aug, 2013 [facility] [place] [facility] [address] [id number] [place] [address] 24 Jul, 2013 [facility] [place] [facility] [address] [id number] [place] [address] 24 Jul, 2013 [facility] [place] [facility] [address] [facility] [id number] [place] [address] Jul, [facility] [address] [facility] [id number] [place] [address] Jul, [facility] [place] [facility] [address] [id number] [place] [address] May, [facility] [place] [facility] [address] [id number] [place] [address] May, [facility] [place] [facility] [address] [id number] [place] [address] May, [facility] [place] [facility] [address] [facility]] [id number] [place] [address] May, [facility] [place] [facility] [address] [facility]] [id number] [place] [address] Apr, [facility] [place] [facility] [address] [id number] [place] [address] Apr, [facility] [place] [facility] [address] [id number] [place] [address] Apr, [facility] [place] [facility] [address] [id number] [place] [address] Apr, [facility] [place] [facility] [address] [id number] [place] [address] Apr, [facility] [place] [facility] [address] [id number] [place] [address] Apr, [facility] [place] [facility] [address] [id number] [place] [address] Apr, [facility] [place] [facility] [address] [id number] [place] [address] Apr, [facility] [place] [facility] [address] [id number] [place] [address] Mar, [facility] [place] [facility] [address] [id number] [place] [address] Dec, [facility] [place] [facility] [address] [id number] [address] Dec, [facility] [place] [facility] [address] [id number] [address] Nov, [facility] [place] [facility] [address] [id number], [place] [address] Nov, [facility] [place] [facility] [address] [id number] [place] [address] Nov, [facility] [place] [facility] [address] [id number] [address] Sep, [facility] [place] [facility] [address] [id number] [place] [address] Aug, [facility] [place] [facility] [address] [id number] [place] [address] Aug, [facility] [place] [facility] [address] [id number] [place] [address] 08 Aug, 2012 [facility] [place] [facility] [address] [id number] [place] [address] Aug, [facility] [place] [facility] [address] [id number] [place] [address] Jul, [facility] [place] [facility] [address] [id number] [place] [address] Jul, [facility] [place] [facility] [address] [id number] [place] [address] May, [facility] [place] [facility] [address] [id number] [place] [address] May, [facility] [place] [facility] [address] [id number] [place] [address] May, [facility] [place] [facility] [address] [id number] [place] [address] Apr, [facility] [place] [facility] [address] [id number] [place] [address] Apr, [facility] [place] [facility] [address] [facility] [id number] [place] [address] Apr, [facility] [place] [facility] [address] [id number] [place] [address] Apr, [facility] [place] [facility] [address] [id number] [place] [address] Apr, [facility] [place] [facility] [address] [id number] [place] [address] Apr, [facility] [place] [facility] [address] [id number] [place] [address] Mar, [facility] [place] [facility] [address] [id number] [place] [address] Mar, [facility] [place] [facility] [address] [id number] [place] [address] 08 Mar, 2012 [facility] [place] [facility] [address] [id number] [place] [address] 14 Feb, 2012 [facility] [place] [facility] [address] [id number] [place] [address] Feb, [facility] [place] [facility] [address] [id number] [place] [address] Feb, [facility] [place] [facility] [address] [id number] [place] [address] 24 Jan, 2012 [facility] [place] [facility] [address] [id number] [place] [address] Jan, [facility] [place] [facility] [address] [id number] [place] [address] Jan, [facility] [place] [facility] [address] [id number] [place] [address] Jan, [facility] [place] [facility] [address] [id number] [place] [address] Dec, [facility] [place] [facility] [address] [id number] [place] [address] Dec, [facility] [place] [facility] [address] [id number] [place] [address] Nov, [facility] [place] [facility] [address] [id number] [place] [address] Nov, [facility] [place] [facility] [address] [id number] [place] [address] October, [facility] [place] [facility] [address] [id number] [place] [address] October, [facility] [place] [facility] [address] [id number] [place] [address] Sep, [facility] [place] [facility] [address] [id number] [address] Aug, [facility] [address] [id number] [place] [address] Aug, [facility] [place] [facility] [address] [id number] [place] [address] Jul, [facility] [place] [facility] [address] [id number] [place] [address] Jun, [facility] [place] [facility] [address] [id number] [place] [address] Jun, [facility] [place] [facility] [address] [id number] [place] [address] Jun, [facility] [place] [facility] [address] [id number] [place] [address] Jun, [facility] [address] [id number] [place] [address] May, [facility] [place] [facility] [address] [id number] [place] [address] May, [facility] [place] [facility] [address] [id number] [place] [address] Mar, [facility] [place] [facility] [address] [id number] [place] [address] Mar, [facility] [place] [facility] [address] [id number], [place] [address] Feb, [facility] [place] [facility] [address] [id number], [place] [address] Dec, [facility] [place] [facility] [address] [id number] [place] [address] Aug, [facility] [place] [facility] [address] [id number] [place] [address] 16 Aug, 2010 [facility] [place] [facility] [address] [id number] [place] [address] May, [facility] [place] [facility] [address] [facility] [id number] [place] [address] Jan, [facility] [address] [facility]] [id number], [place] [address] Apr, [facility] [address] [id number] [address] Apr, [facility] [address] [facility]] [id number] [address] Jan, [facility] [address] [facility]] [id number] [address] Aug, IMMUNIZATIONS No Known Immunizations SOCIAL HISTORY Never Assessed REASON FOR VISIT Possible poison selin reaction. CAMRYN Trotter. PLAN OF CARE Activity Details Follow Up prn Reason: VITAL SIGNS Height 64 in 2017-01-07 Weight 165.8 lbs 2017-01-07 Temperature 97.5 degrees Fahrenheit 2017-01-07 Heart Rate 86 bpm 2017-01-07 Respiratory Rate 18 2017-01-07 BMI 28.46 kg/m2 2017-01-07 Blood pressure systolic 144 mmHg 2017-01-07 Blood pressure diastolic 78 mmHg 2017-01-07 MEDICATIONS Medication Instructions Dosage Frequency Start Date End Date Duration Status Sertraline HCl 100 MG Orally Once a day 1 tablet 24h Mar, Active Ibuprofen 200 MG Orally every 6 hrs 1 tablet as needed 6h Active Albuterol Sulfate (2.5 MG/3ML) 0.083% Inhalation Three times a day. DX: J44.9 3 ml Apr, Active PredniSONE 20 MG Orally Once a day 3 tabs x 3days, 2 tabs x 3 days, 1 tabs x 3 days, 1/2 tabs x 4 days 24h Dec, Jan, 13 days Active ProAir HFA 108 (90 Base) MCG/ACT Inhalation 4 times a day 2 puffs as needed 6h Apr, Active Ativan 0.5 MG Orally twice a day 1 tablet as needed 12h Jul, Active Naproxen 500 mg Orally every 12 hrs 1 tablet as needed 12h Mar, Active MetFORMIN HCl ER 500 MG Orally 2 times a day 2 tablets 12h Mar, 30 day(s) Active Meclizine HCl 25 MG Orally Once a day 1 tablet as needed 24h Sep, 30 day(s) Active Aricept 5 mg Orally Once a day 1 tablet at bedtime 24h Jun, 30 day(s) Active RESULTS No Results PROCEDURES Procedure Date Ordered Result Body Site [facility] VISIT ESTABLISHED PATIENT January 07, 2017 INSTRUCTIONS MEDICATIONS ADMINISTERED No Known Medications [...]
--- OUTSIDE RECORDS SUMMARY | 2019-01-20 15:02 | XMS REPORT ---
Author CAMILLA Petit [facility] eClinicalWorks Address Unknown Phone Unavailable Care Team Providers Care Manager Sterile Processing Name Role Phone CAMILLA KELLY CP Unavailable Allergies No Known Allergies Problems Problem Type Condition Code Onset Dates Condition Status Problem Exertional dyspnea R06.09 Active Problem Polyneuropathy G62.9 Active Problem Diabetes type 2, controlled E11.9 Active Problem Chronic obstructive pulmonary disease, unspecified COPD type J44.9 Active Problem Corns L84 Active Problem Flat foot [pes planus] (acquired), right foot M21.41 Active Medications No Known Medications Results No Known Results Summary Purpose eClinicalWorks Submission
--- OUTSIDE RECORDS SUMMARY | 2019-01-20 15:02 | XMS REPORT ---
Author Author HERMILO VERDUGO [facility] Address [address] [place] [address] Care Team Providers Care Cyber Ops Planner Name Role Phone HERMILO VERDUGO Unavailable PROBLEMS Type Condition ICD9-CM Code SFQ26-IA Code Onset Dates Condition Status SNOMED Code Problem Flat foot [pes planus] (acquired), right foot M21.41 Active 83243937 Problem Anxiety F41.9 Active 45504322 Problem Diabetes type 2, controlled E11.9 Active 58437735 Problem Chronic obstructive pulmonary disease, unspecified COPD type J44.9 Active 94058070 Problem Corns L84 Active 566831975 Problem Exertional dyspnea R06.09 Active 25999312 Problem Polyneuropathy G62.9 Active 92605537 Problem Other Alzheimers disease G30.8 Active 86182344 Problem Controlled type 2 diabetes mellitus without complication, without long- term current use of insulin E11.9 Active 186672087 Problem Acute exacerbation of chronic obstructive pulmonary disease (COPD) J44.1 Active 517820064 Problem Diabetes E11.9 Active 734987340 Problem Alzheimers disease with early onset G30.0 Active 5363994 Problem Dementia in other diseases classified elsewhere without behavioral disturbance F02.80 Active 730980166 ALLERGIES Unknown Allergies SOCIAL HISTORY No smoking Hx information available PLAN OF CARE VITAL SIGNS MEDICATIONS Unknown Medications RESULTS No Results PROCEDURES No Known procedures IMMUNIZATIONS No Known Immunizations
--- OUTSIDE RECORDS SUMMARY | 2019-01-20 15:02 | XMS REPORT ---
Author HERMILO Muhammad [facility] eClinicalWorks Address Unknown Phone Unavailable Care Team Providers Care Skilled Nursing Facility Counselor Name Role Phone HERMILO VERDUGO CP Unavailable Allergies, Adverse Reactions, Alerts Substance Reaction Event Type Sulfur swelling Drug Allergy Lisinopril hypotension Drug Allergy Cozaar hypotension Drug Allergy Bactrim Info Not Available Drug Allergy Aspirin Info Not Available Drug Allergy Problems Problem Type Condition Code Onset Dates Condition Status Assessment Anxiety F41.9 Active Problem Exertional dyspnea R06.09 Active Problem Polyneuropathy G62.9 Active Problem Diabetes type 2, controlled E11.9 Active Problem Chronic obstructive pulmonary disease, unspecified COPD type J44.9 Active Assessment Controlled type 2 diabetes mellitus without complication, without long- term current use of insulin E11.9 Active Problem Corns L84 Active Problem Flat foot [pes planus] (acquired), right foot M21.41 Active Medications Medication Code System Code Instructions Start Date End Date Status Dosage Sertraline HCl [facility] [address]-05 100 MG Orally Once a day Mar 18, 2015 1 tablet Albuterol Sulfate [facility] [address]-00 (2.5 MG/3ML) 0.083% Inhalation Three times a day. DX: J44.9 May 01, 2015 3 ml ProAir HFA [facility] [address]-95 108 (90 Base) MCG/ACT Inhalation 4 times a day May 01, 2015 2 puffs as needed Ativan [facility] [address]-91 0.5 MG Orally twice a day Aug 12, 2015 1 tablet as needed MetFORMIN HCl ER [facility] [address]-21 500 MG Orally 2 times a day Mar 18, 2015 1 tablet with evening meal Procedures Procedure Coding System Code Date Office Visit, Est Pt., Level 3 CPT-4 81649 Jan 16, 2016 [facility] VISIT ESTABLISHED PATIENT CPT-4 G0467 Jan 16, 2016 Vital Signs Date/Time: Jan 16, 2016 Cardiac Monitoring Heart Rate 74 bpm Weight 176 lbs Height 64 in BMI 30.21 Index Blood Pressure Diastolic 82 mmHg Blood Pressure Systolic 140 mmHg Results No Known Results Summary Purpose eClinicalWorks Submission
--- OUTSIDE RECORDS SUMMARY | 2019-01-20 15:03 | XMS REPORT ---
Author Author HERMILO VERDUGO [facility] Address [address] [place] [address] Care Team Providers Care Collection Officer Name Role Phone KARTIK HERMILO Unavailable PROBLEMS Type Condition ICD9-CM Code [id number] Code Onset Dates Condition Status SNOMED Code Problem Flat foot [pes planus] (acquired), right foot M21.41 Active 10632525 Problem Anxiety F41.9 Active 65770840 Problem Diabetes type 2, controlled E11.9 Active 62000630 Problem Chronic obstructive pulmonary disease, unspecified COPD type J44.9 Active 40559625 Problem Corns L84 Active 181750042 Problem Exertional dyspnea R06.09 Active 31130854 Problem Polyneuropathy G62.9 Active 82158424 Problem Other Alzheimers disease G30.8 Active 65183484 Problem Controlled type 2 diabetes mellitus without complication, without long- term current use of insulin E11.9 Active 326092774 Problem Acute exacerbation of chronic obstructive pulmonary disease (COPD) J44.1 Active 920426257 Problem Diabetes E11.9 Active 804302882 Problem Alzheimers disease with early onset G30.0 Active 4562986 Problem Dementia in other diseases classified elsewhere without behavioral disturbance F02.80 Active 508516902 ALLERGIES Substance Reaction Event Type Date Status Sulfur swelling Drug Allergy Jun, Active Lisinopril hypotension Drug Allergy Jun, Active Cozaar hypotension Drug Allergy Jun, Active Bactrim Unknown Drug Allergy Jun, Active Aspirin Unknown Drug Allergy Jun, Active SOCIAL HISTORY No smoking Hx information available PLAN OF CARE Activity Details Follow Up 4 Weeks Reason:alzheimer's disease. VITAL SIGNS Height 64 in 2016-07-13 Weight 168.6 lbs 2016-07-13 Temperature 98.6 degrees Fahrenheit 2016-07-13 Heart Rate 88 bpm 2016-07-13 Respiratory Rate 20 2016-07-13 BMI 28.94 kg/m2 2016-07-13 Blood pressure systolic 112 mmHg 2016-07-13 Blood pressure diastolic 68 mmHg 2016-07-13 MEDICATIONS Medication Instructions Dosage Frequency Start Date End Date Duration Status Sertraline HCl 100 MG Orally Once a day 1 tablet 24h Mar, Active ProAir HFA 108 (90 Base) MCG/ACT Inhalation 4 times a day 2 puffs as needed 6h Apr, Active Ibuprofen 200 MG Orally every 6 hrs 1 tablet as needed 6h Active Aricept 5 mg Orally Once a day 1 tablet at bedtime 24h Jun, 30 day(s) Active MetFORMIN HCl ER 500 MG Orally 2 times a day 2 tablets 12h Mar, 30 day(s) Active Albuterol Sulfate (2.5 MG/3ML) 0.083% Inhalation Three times a day. DX: J44.9 3 ml Apr, Active RESULTS Name Result Date Reference Range A1C (IN HOUSE) 2016-07-13 A1C IN HOUSE 10.7 4.3 - 5.6 % Previous A1c 8.8 Lot [id number] Exp date 04/2018 PROCEDURES Procedure Date Ordered Related Diagnosis Body Site GLYCATED HEMOGLOBIN TEST Jul 13, 2016 [facility] VISIT ESTABLISHED PATIENT Jul 13, 2016 Office Visit, Est Pt., Level 3 Jul 13, 2016 IMMUNIZATIONS No Known Immunizations
--- OUTSIDE RECORDS SUMMARY | 2019-01-20 15:03 | XMS REPORT ---
Author Author HERMILO VERUDGO Organization [facility] Address [address] [place] [address] Care Team Providers Care Girl Friday Name Role Phone KARTIK HERMILO Unavailable PROBLEMS Type Condition ICD9-CM Code VOK96-AY Code Onset Dates Condition Status SNOMED Code Problem Diabetes E11.9 Active 506991062 Problem Uncontrolled type 2 diabetes mellitus without complication, without long- term current use of insulin E11.65 Active 416890785 Problem Alzheimers disease with early onset G30.0 Active 7998915 Problem Corns L84 Active 275554888 Problem Flat foot [pes planus] (acquired), right foot M21.41 Active 40229655 Problem Anxiety F41.9 Active 56319750 Problem Type 2 diabetes mellitus with unspecified diabetic retinopathy without macular edema E11.319 Active 361572353 Problem Type 2 diabetes mellitus with hyperglycemia E11.65 Active 701426619496565 Problem Diabetic polyneuropathy associated with type 2 diabetes mellitus E11.42 Active 78935408 Problem Moderate episode of recurrent major depressive disorder F33.1 Active 271862677 Problem Major depressive disorder, recurrent, in full remission F33.42 Active 151681086 Problem Arthritis M19.90 Active 3391215 ALLERGIES Substance Reaction Event Type Date Status SulfADIAZINE shortness of breath Drug Allergy Apr, Active Lisinopril hypotension Drug Allergy Apr, Active Cozaar hypotension Drug Allergy Apr, Active Aspirin Unknown Drug Allergy Apr, Active ENCOUNTERS Encounter Location Date Diagnosis [facility] [address] [facility] [id number] [address] October, Type 2 diabetes mellitus with hyperglycemia E11.65 and Type 2 diabetes mellitus with unspecified diabetic retinopathy without macular edema E11.319 [facility] [address] [facility] [id number], [place] [address] October, Diabetes E11.9 ; Alzheimers disease with early onset G30.0 ; Arthritis M19.90 ; Diabetic polyneuropathy associated with type 2 diabetes mellitus E11.42 and Major depressive disorder, recurrent, in full remission F33.[address] [address] Sep, [address] [address] Sep, Dysfunction of both eustachian tubes H69.[address] [address] Aug, Alzheimer''s disease with early onset G30.0 ; Dementia in other diseases classified elsewhere with behavioral disturbance F02.81 ; 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 and Type 2 diabetes mellitus with hyperglycemia E11.[address] [address] Jul, [address] [address] Jul, Alzheimer''s disease with early onset G30.0 ; Dementia in other diseases classified elsewhere with behavioral disturbance F02.81 and Uncontrolled type 2 diabetes mellitus without complication, without long-term current use of insulin E11.[address] [address] May, Diabetes type 2, controlled E11.9 ; Bilateral otitis media with effusion H65.93 and Dizziness R42 [facility] [address] [place] [address] Apr, Dysuria R30.0 and Acute cystitis with hematuria N30.[address] [address] Apr, Moderate episode of recurrent major depressive disorder F33.1 [facility] [address] [place] [id number] [place] [address] Mar, Acute cystitis without hematuria N30.[address] [place] [address] Feb, Uncontrolled type 2 diabetes mellitus without complication, without long-term current use of insulin E11.65 ; Other Alzheimer''s disease G30.8 and Dementia in other diseases classified elsewhere without behavioral disturbance F02.[address] [address] Jan, Diabetes type 2, controlled E11.9 and Alzheimers disease with early onset G30.0 [facility] [address] [address] Dec, Allergic contact dermatitis due to plants, except food L23.7 [facility] [address] [address] Dec, Dysuria R30.0 and Candidiasis of female genitalia B37.[address] [address] Dec, Diabetes E11.9 and Alzheimers disease with early onset G30.0 [facility] [address] [address] Nov, Acute exacerbation of chronic obstructive pulmonary disease (COPD) J44.1 and Vaginal candidiasis B37.[address] [address] 15 Nov, 2016 Controlled type 2 diabetes mellitus without complication, without long-term current use of insulin E11.9 and Other Alzheimers disease G30.[address] [address] October, OME (otitis media with effusion), bilateral H65.93 ; Dizziness R42 and Diabetes E11.9 [facility] [address] [address] Sep, Vertigo R42 ; Heart murmur R01.1 and Dysfunction of inner ear, bilateral H83.[address] [address] Aug, Acute suppurative otitis media of both ears without spontaneous rupture of tympanic membranes, recurrence not specified H66.003 [facility] [address] [place] [address] Aug, Vaginal irritation N89.8 and Acute exacerbation of chronic obstructive pulmonary disease (COPD) J44.1 [place] [address] [address] Jul, Dementia in other diseases classified elsewhere without behavioral disturbance F02.80 [place] [address] [address] Jul, [place] [address] [address] Jun, Diabetes type 2, controlled E11.9 ; Alzheimers disease with early onset G30.0 and Dementia in other diseases classified elsewhere without behavioral disturbance F02.80 [place] [address] [address] May, Diabetes type 2, controlled E11.9 [facility] [address] [place] [address] May, Vaginal candidiasis B37.3 and Dysuria R30.0 [facility] [address] [address] 05 May, 2016 Cutaneous abscess of head [any part, except face] L02.811 ; Cellulitis of head [any part, except face] L03.811 ; COPD exacerbation J44.1 and Wheezing R06.[address] [address] Apr, [address] [address] Apr, Diabetes E11.9 ; Acute upper respiratory infection, unspecified J06.9 and Vagina, candidiasis B37.3 [facility] [address] [place] [address] [address] Mar, Acute exacerbation of chronic obstructive pulmonary disease (COPD) J44.1 [facility] [address] [place] [id number] [place] [address] 07 Mar, 2016 Diabetes type 2, controlled E11.9 [facility] [address] [place] [id number] [place] [address] Feb, Acute bronchitis, unspecified organism J20.9 [facility] [address] [place] [id number] [place] [address] Feb, Controlled type 2 diabetes mellitus without complication, without long-term current use of insulin E11.9 [place] [address] [place] [id number] [place] [address] Jan, Controlled type 2 diabetes mellitus without complication, without long-term current use of insulin E11.9 and Anxiety F41.9 [place] [address] [place] [id number] [place] [address] Dec, [facility] [address] [place] [id number] [place] [address] Nov, Diabetes type 2, controlled E11.9 [place] [address] [place] [id number] [place] [address] Nov, Acute pain of left shoulder M25.512 [facility] [address] [place] [id number] [place] [address] October, Cellulitis of face L03.211 [facility] [address] [place] [id number] [place] [address] October, Diabetes type 2, controlled E11.9 [place] [address] [place] [id number] [place] [address] October, Diabetes type 2, controlled E11.9 [facility] [id number] [place] [address] Sep, Generalized anxiety disorder F41.1 ; Depression F32.9 and FH: memory loss Z82.0 [facility] [address] [address] Sep, FH: memory loss Z82.0 ; Major depression, recurrent F33.9 and Anxiety disorder, unspecified F41.9 [facility] [address] [place] [id number] [place] [address] Aug, PTSD (post-traumatic stress disorder) F43.10 ; Generalized anxiety disorder F41.1 and FH: memory loss Z82.0 [place] [address] [place] [id number] [place] [address] Aug, FH: memory loss Z82.0 ; Depression F32.9 and PTSD (post-traumatic stress disorder) F43.10 [place] [address] [place] [id number] [place] [address] Jul, Major depression, recurrent F33.9 ; Generalized anxiety disorder F41.1 and Alzheimer disease G30.9 [place] [address] [place] [id number] [place] [address] Jul, Diabetes E11.9 and Mood disorder F39 [place] [address] [place] [id number] [place] [address] 17 Jul, 2015 Dental examination Z01.20 [place] [address] [place] [id number] [place] [address] Apr, Exertional dyspnea R06.09 and Chronic obstructive pulmonary disease, unspecified COPD type J44.9 [facility] [address] [place] [id number] [place] [address] Mar, [facility] [address] [place] [id number] [place] [address] Mar, Diabetes E11.9 [facility] [address] [place] [id number] [place] [address] 05 Mar, 2015 Diabetes E11.9 ; COPD (chronic obstructive pulmonary disease) J44.9 and Hip pain, right M25.551 [facility] [address] [address] Dec, [facility] [address] [place] [id number] [place] [address] Nov, COPD exacerbation 491.21 and Wheezing 786.07 [facility] [address] [place] [id number] [place] [address] October, Acute contact dermatitis 692.9 and Anhedonia 780.99 [facility] [address] [place] [id number] [place] [address] October, [facility] [address] [place] [id number] [place] [address] Sep, [facility] [address] [place] [id number] [place] [address] Sep, [facility] [address] [place] [id number] [place] [address] Aug, [facility] [address] [place] [id number] [place] [address] Aug, [facility] [address] [place] [id number] [place] [address] Aug, [facility] [id number] [place] [address] Aug, [facility] [id number] [place] [address] Jul, [facility] [address] [address] Jul, [facility] [address] [place] [id number] [place] [address] Jul, [facility] [address] [address] Jul, [facility] [address] [place] [id number] [place] [address] Jul, 2014 [facility] [place] [facility] [address] [id number] [place] [address] Jul, [facility] [place] [facility] [address] [id number] [place] [address] May, [facility] [place] [facility] [address] [id number] [place] [address] May, [facility] [place] [facility] [address] [id number] [place] [address] May, [facility] [place] [facility] [address] [id number] [place] [address] May, [facility] [place] [facility] [address] [id number] [place] [address] May, [facility] [place] [facility] [address] [facility] [id number] [place] [address] May, [facility] [place] [facility] [address] [id number] [place] [address] Apr, [facility] [place] [facility] [address] [id number] [place] [address] Apr, [facility] [place] [facility] [address] [facility] [id number] [place] [address] Apr, [facility] [place] [facility] [address] [id number] [place] [address] Apr, [facility] [place] [facility] [address] [id number], [place] [address] Mar, [facility] [place] [facility] [address] [id number] [place] [address] Mar, [facility] [place] [facility] [address] [id number], [place] [address] Feb, [facility] [place] [facility] [address] [facility] [id number], [place] [address] 08 Feb, 2014 [facility] [place] [facility] [address] [id number] [place] [address] Jan, [facility] [place] [facility] [address] [id number] [place] [address] Jan, [facility] [place] [facility] [address] [id number] [place] [address] Dec, [facility] [place] [facility] [address] [id number] [place] [address] Dec, [facility] [place] [facility] [address] [id number] [place] [address] October, [facility] [place] [facility] [address] [id number] [place] [address] October, [facility] [place] [facility] [address] [id number] [place] [address] October, [facility] [place] [facility] [address] [id number] [place] [address] October, [facility] [place] [facility] [address] [id number] [place] [address] October, [facility] [place] [facility] [address] [id number] [place] [address] October, [facility] [place] [facility] [address] [id number] [place] [address] Sep, [facility] [place] [facility] [address] [id number] [place] [address] Sep, [facility] [place] [facility] [address] [id number] [place] [address] Sep, [facility] [place] [facility] [address] [id number] [place] [address] Sep, [facility] [place] [facility] [address] [id number] [place] [address] Sep, [facility] [place] [facility] [address] [id number] [place] [address] Sep, [facility] [place] [facility] [address] [id number] [place] [address] Sep, [facility] [place] [facility] [address] [id number] [place] [address] 08 Sep, 2013 [facility] [place] [facility] [address] [id number] [place] [address] 26 Aug, 2013 [facility] [place] [facility] [address] [id number] [place] [address] 14 Aug, 2013 [facility] [place] [facility] [address] [id number] [place] [address] 14 Aug, 2013 [facility] [place] [facility] [address] [id number] [place] [address] Aug, [facility] [place] [facility] [address] [id number] [place] [address] Aug, [facility] [place] [facility] [address] [id number] [place] [address] Aug, [facility] [place] [facility] [address] [id number] [place] [address] Jul, [facility] [place] [facility] [address] [id number] [place] [address] Jul, [facility] [place] [facility] [address] [id number] [place] [address] Jul, [facility] [place] [facility] [address] [id number] [place] [address] Jul, [facility] [place] [facility] [address] [id number] [place] [address] May, [facility] [place] [facility] [address] [id number] [place] [address] May, [facility] [place] [facility] [address] [id number] [place] [address] May, [facility] [place] [facility] [address] [id number] [place] [address] May, [facility] [address] [id number] [place] [address] Apr, [facility] [place] [facility] [address] [id number] [place] [address] Apr, [facility] [address] [id number] [place] [address] Apr, [facility] [place] [facility] [address] [id number] [place] [address] Apr, [facility] [address] [id number] [place] [address] Apr, [facility] [address] [id number] [place] [address] Apr, [facility] [address] [id number] [place] [address] Apr, [facility] [address] [id number] [place] [address] Apr, [facility] [place] [facility] [address] [id number] [place] [address] Mar, [facility] [address] [id number] [place] [address] Dec, [facility] [place] [facility] [address] [id number] [place] [address] Dec, [facility] [place] [facility] [address] [id number] [place] [address] Nov, [facility] [place] [facility] [address] [id number] [place] [address] Nov, [facility] [place] [facility] [address] [id number] [place] [address] Nov, [facility] [place] [facility] [address] [id number] [place] [address] Sep, [facility] [place] [facility] [address] [id number] [place] [address] Aug, [facility] [place] [facility] [address] [id number] [place] [address] Aug, [facility] [place] [facility] [address] [id number] [place] [address] Aug, [facility] [place] [facility] [address] [id number] [place] [address] Aug, [facility] [place] [facility] [address] [id number] [place] [address] Jul, [facility] [place] [facility] [address] [id number] [place] [address] Jul, [facility] [place] [facility] [address] [facility] [id number] [place] [address] May, [facility] [place] [facility] [address] [id number] [place] [address] May, [facility] [place] [facility] [address] [id number] [place] [address] May, [facility] [place] [facility] [address] [id number] [place] [address] Apr, [facility] [place] [facility] [address] [id number] [place] [address] Apr, [facility] [place] [facility] [address] [id number], [place] [address] Apr, [facility] [place] [facility] [address] [id number] [place] [address] Apr, [facility] [place] [facility] [address] [id number] [place] [address] Apr, [facility] [place] [facility] [address] [id number] [place] [address] Apr, [facility] [place] [facility] [address] [id number] [place] [address] Mar, [facility] [place] [facility] [address] [id number] [place] [address] 29 Mar, 2012 [facility] [place] [facility] [address] [id number] [place] [address] Mar, [facility] [place] [facility] [address] [id number] [place] [address] 14 Feb, 2012 [facility] [place] [facility] [address] [id number] [place] [address] Feb, [facility] [place] [facility] [address] [id number] [place] [address] Feb, [facility] [place] [facility] [address] [id number] [place] [address] Jan, [facility] [place] [facility] [address] [id number] [place] [address] Jan, [facility] [place] [facility] [address] [id number] [place] [address] Jan, [facility] [place] [facility] [address] [id number] [place] [address] Jan, [facility] [place] [facility] [address] [id number] [place] [address] Dec, [facility] [place] [facility] [address] [id number] [place] [address] Dec, [facility] [place] [facility] [address] [id number] [place] [address] Nov, [facility] [place] [facility] [address] [id number] [place] [address] Nov, [facility] [place] [facility] [address] [id number] [place] [address] October, [facility] [place] [facility] [address] [id number] [place] [address] October, [facility] [place] [facility] [address] [id number] [place] [address] Sep, [facility] [address] [id number] [place] [address] Aug, [facility] [place] [facility] [address] [id number] [place] [address] Aug, [facility] [place] [facility] [address] [id number] [place] [address] Jul, [facility] [address] [id number] [place] [address] Jun, [facility] [place] [facility] [address] [id number] [place] [address] Jun, [facility] [address] [id number] [place] [address] Jun, [facility] [address] [id number] [place] [address] Jun, [facility] [address] [id number] [place] [address] May, [facility] [address] [id number] [place] [address] May, [facility] [place] [facility] [address] [id number] [place] [address] Mar, [facility] [place] [facility] [address] [id number] [place] [address] Mar, [facility] [place] [facility] [address] [id number] [place] [address] Feb, [facility] [place] [facility] [address] [id number] [place] [address] Dec, [facility] [place] [facility] [address] [id number] [place] [address] Aug, [facility] [place] [facility] [address] [id number], [place] [address] Aug, [facility] [address] [facility] [id number], [place] [address] May, [facility] [address] [facility] [id number], [place] [address] Jan, [facility] [address] [facility] [id number], [place] [address] Apr, [facility] [address] [facility] [id number], [place] [address] Apr, [facility] [address] [facility] [id number], [place] [address] Jan, [facility] [address] [facility] [id number], [place] [address] Aug, IMMUNIZATIONS No Known Immunizations SOCIAL HISTORY Never Assessed REASON FOR VISIT [facility] [employer]rumbackRN PLAN OF CARE VITAL SIGNS Height 64 in 2017-04-15 Weight 163.3 lbs 2017-04-15 Temperature 97.6 degrees Fahrenheit 2017-04-15 Heart Rate 98 bpm 2017-04-15 Respiratory Rate 16 2017-04-15 BMI 28.03 kg/m2 2017-04-15 Blood pressure systolic 136 mmHg 2017-04-15 Blood pressure diastolic 82 mmHg 2017-04-15 MEDICATIONS Medication Instructions Dosage Frequency Start Date End Date Duration Status Albuterol Sulfate (2.5 MG/3ML) 0.083% Inhalation Three times a day. DX: J44.9 3 ml Apr, Active ProAir HFA 108 (90 Base) MCG/ACT Inhalation 4 times a day 2 puffs as needed 6h Apr, Active Naproxen 500 mg Orally every 12 hrs 1 tablet as needed 12h Mar, Active Sertraline HCl 100 MG Orally Once a day 1 tablet 24h Mar, Active Ibuprofen 200 MG Orally every 6 hrs 1 tablet as needed 6h Active Ativan 0.5 MG Orally twice a day 1 tablet as needed 12h Jul, Active MetFORMIN HCl ER 500 MG Orally 2 times a day 2 tablets 12h Mar, 30 day(s) Active RESULTS No Results PROCEDURES Procedure Date Ordered Result Body Site [facility] VISIT ESTABLISHED PATIENT Apr 15, 2017 INSTRUCTIONS MEDICATIONS ADMINISTERED No Known Medications [...]
--- OUTSIDE RECORDS SUMMARY | 2019-01-20 15:04 | XMS REPORT ---
Author Author MANDO JACKSON [facility] Address [address] [place] [address] Care Team Providers Care Sheet Hanger Name Role Phone MANDO JACKSON Unavailable PROBLEMS Type Condition ICD9-CM Code ZWA33-HW Code Onset Dates Condition Status SNOMED Code Problem Dementia in other diseases classified elsewhere without behavioral disturbance F02.80 Active 172900064 Problem Controlled type 2 diabetes mellitus without complication, without long- term current use of insulin E11.9 Active 673529290 Problem Other Alzheimers disease G30.8 Active 95536535 Problem 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 Active 40540628 Problem Type 2 diabetes mellitus with hyperglycemia E11.65 Active [id number] Problem Moderate episode of recurrent major depressive disorder F33.1 Active 220313440 Problem Uncontrolled type 2 diabetes mellitus without complication, without long- term current use of insulin E11.65 Active 535544684 Problem Dementia in other diseases classified elsewhere with behavioral disturbance F02.81 Active 669458267 Problem Alzheimer''s disease with early onset G30.0 Active 8013112 Problem Polyneuropathy G62.9 Active 58324026 Problem Flat foot [pes planus] (acquired), right foot M21.41 Active 85310935 Problem Corns L84 Active 411205001 Problem Exertional dyspnea R06.09 Active 28958429 Problem Anxiety F41.9 Active 45110096 Problem Diabetes E11.9 Active 655814804 Problem Chronic obstructive pulmonary disease, unspecified COPD type J44.9 Active 24414326 Problem Acute exacerbation of chronic obstructive pulmonary disease (COPD) J44.1 Active 872964246 Problem Diabetes type 2, controlled E11.9 Active 88432291 Problem Alzheimers disease with early onset G30.0 Active 8597502 ALLERGIES Substance Reaction Event Type Date Status SulfADIAZINE shortness of breath Drug Allergy Nov, Active Lisinopril hypotension Drug Allergy Nov, Active Cozaar hypotension Drug Allergy Nov, Active Aspirin Unknown Drug Allergy Nov, Active ENCOUNTERS Encounter Location Date Diagnosis [place] [id number] [place] [address] October, [place] [id number] [place] [address] Aug, Alzheimer''s disease with early onset G30.0 ; Dementia in other diseases classified elsewhere with behavioral disturbance F02.81 ; 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 and Type 2 diabetes mellitus with hyperglycemia E11.65 [place] [id number] [place] [address] Jul, [place] [id number] [place] [address] Jul, Alzheimer''s disease with early onset G30.0 ; Dementia in other diseases classified elsewhere with behavioral disturbance F02.81 and Uncontrolled type 2 diabetes mellitus without complication, without long-term current use of insulin E11.65 [place] [id number] [place] [address] May, Diabetes type 2, controlled E11.9 ; Bilateral otitis media with effusion H65.93 and Dizziness R42 [facility] [id number] [place] [address] 17 Apr, 2017 Dysuria R30.0 and Acute cystitis with hematuria N30.01 [place] [id number] [place] [address] 02 Apr, 2017 Moderate episode of recurrent major depressive disorder F33.1 [facility] [id number] [place] [address] 18 Mar, 2017 Acute cystitis without hematuria N30.00 [place] [id number] [place] [address] 28 Feb, 2017 Uncontrolled type 2 diabetes mellitus without complication, without long-term current use of insulin E11.65 ; Other Alzheimer''s disease G30.8 and Dementia in other diseases classified elsewhere without behavioral disturbance F02.80 [place] [id number] [place] [address] Jan, Diabetes type 2, controlled E11.9 and Alzheimers disease with early onset G30.0 [facility] [place] [address] [address] Dec, Allergic contact dermatitis due to plants, except food L23.7 [facility] [address] [address] Dec, Dysuria R30.0 and Candidiasis of female genitalia B37.[address] [address] Dec, Diabetes E11.9 and Alzheimers disease with early onset G30.0 [facility] [place] [address] [address] Nov, Acute exacerbation of chronic obstructive pulmonary disease (COPD) J44.1 and Vaginal candidiasis B37.[address] [address] Nov, Controlled type 2 diabetes mellitus without complication, without long-term current use of insulin E11.9 and Other Alzheimers disease G30.8 [place] [id number] [place] [address] October, OME (otitis media with effusion), bilateral H65.93 ; Dizziness R42 and Diabetes E11.9 [facility] [place] [id number] [place] [address] Sep, Vertigo R42 ; Heart murmur R01.1 and Dysfunction of inner ear, bilateral H83.[address] [address] Aug, Acute suppurative otitis media of both ears without spontaneous rupture of tympanic membranes, recurrence not specified H66.003 [facility] [address] [address] Aug, Vaginal irritation N89.8 and Acute exacerbation of chronic obstructive pulmonary disease (COPD) J44.1 [place] [id number] [place] [address] Jul, Dementia in other diseases classified elsewhere without behavioral disturbance F02.80 [place] [address] [address] Jul, [place] [address] [address] Jun, Diabetes type 2, controlled E11.9 ; Alzheimers disease with early onset G30.0 and Dementia in other diseases classified elsewhere without behavioral disturbance F02.80 [place] [id number] [place] [address] May, Diabetes type 2, controlled E11.9 [facility] [address] [address] May, Vaginal candidiasis B37.3 and Dysuria R30.0 [facility] [address] [address] 05 May, 2016 Cutaneous abscess of head [any part, except face] L02.811 ; Cellulitis of head [any part, except face] L03.811 ; COPD exacerbation J44.1 and Wheezing R06.2 [place] [id number] [place] [address] Apr, [place] [id number] [place] [address] Apr, Diabetes E11.9 ; Acute upper respiratory infection, unspecified J06.9 and Vagina, candidiasis B37.3 [facility] [place] [id number] [place] [address] Mar, Acute exacerbation of chronic obstructive pulmonary disease (COPD) J44.[address] [address] Mar, Diabetes type 2, controlled E11.9 [facility] [address], [place] [address] Feb, Acute bronchitis, unspecified organism J20.9 [facility] [address] [address] Feb, Controlled type 2 diabetes mellitus without complication, without long-term current use of insulin E11.9 [facility] [id number] [place] [address] Jan, Controlled type 2 diabetes mellitus without complication, without long-term current use of insulin E11.9 and Anxiety F41.9 [place] [id number] [place] [address] Dec, [place] [id number] [place] [address] Nov, Diabetes type 2, controlled E11.9 [facility] [id number] [place] [address] Nov, Acute pain of left shoulder M25.512 [facility] [id number] [place] [address] October, Cellulitis of face L03.211 [place] [id number] [place] [address] October, Diabetes type 2, controlled E11.9 [facility] [id number] [place] [address] October, Diabetes type 2, controlled E11.9 [place] [id number] [place] [address] Sep, Generalized anxiety disorder F41.1 ; Depression F32.9 and FH: memory loss Z82.0 [facility] [address], [place] [address] Sep, FH: memory loss Z82.0 ; Major depression, recurrent F33.9 and Anxiety disorder, unspecified F41.9 [facility] [id number] [place] [address] Aug, PTSD (post-traumatic stress disorder) F43.10 ; Generalized anxiety disorder F41.1 and FH: memory loss Z82.0 [place] [id number] [place] [address] Aug, FH: memory loss Z82.0 ; Depression F32.9 and PTSD (post-traumatic stress disorder) F43.10 [place] [id number] [place] [address] Jul, Major depression, recurrent F33.9 ; Generalized anxiety disorder F41.1 and Alzheimer disease G30.9 [place] [id number] [place] [address] Jul, Diabetes E11.9 and Mood disorder F39 [place] [id number] [place] [address] Jul, Dental examination Z01.20 [place] [id number] [place] [address] Apr, Exertional dyspnea R06.09 and Chronic obstructive pulmonary disease, unspecified COPD type J44.9 [place] [id number] [place] [address] Mar, [place] [id number] [place] [address] Mar, Diabetes E11.9 [place] [id number] [place] [address] Mar, Diabetes E11.9 ; COPD (chronic obstructive pulmonary disease) J44.9 and Hip pain, right M25.551 [place] [id number] [place] [address] Dec, [place] [address] [address] Nov, COPD exacerbation 491.21 and Wheezing 786.07 [facility] [id number] [place] [address] October, Acute contact dermatitis 692.9 and Anhedonia 780.99 [facility] [id number] [place] [address] October, [facility] [id number] [place] [address] Sep, [facility] [id number] [place] [address] Sep, [facility] [id number] [place] [address] Aug, [facility] [id number] [place] [address] Aug, [facility] [id number] [place] [address] Aug, [facility] [id number] [place] [address] Aug, [facility] [id number] [place] [address] Jul, [facility] [address], [place] [address] Jul, [facility] [address] [place] [address] Jul, [facility] [address], [place] [address] Jul, [facility] [address] [place] [address] Jul, [facility] [address], [place] [address] Jul, [facility] [place] [facility] [address] [facility] [id number] [place] [address] May, [facility] [place] [facility] [address] [id number] [place] [address] May, [facility] [place] [facility] [address] [id number] [place] [address] May, [facility] [place] [facility] [address] [id number] [place] [address] May, [facility] [place] [facility] [address] [id number] [place] [address] May, [facility] [place] [facility] [address] [id number] [place] [address] May, [facility] [place] [facility] [address] [id number] [place] [address] Apr, [facility] [place] [facility] [address] [id number] [place] [address] Apr, [facility] [place] [facility] [address] [id number] [place] [address] Apr, [facility] [place] [facility] [address] [id number] [place] [address] Apr, [facility] [place] [facility] [address] [id number] [place] [address] Mar, [facility] [place] [facility] [address] [id number] [place] [address] Mar, [facility] [place] [facility] [address] [id number] [place] [address] Feb, [facility] [place] [facility] [address] [id number] [place] [address] Feb, [facility] [place] [facility] [address] [id number] [place] [address] Jan, [facility] [place] [facility] [address] [id number] [place] [address] Jan, [facility] [place] [facility] [address] [id number] [place] [address] Dec, [facility] [place] [facility] [address] [id number] [place] [address] Dec, [facility] [place] [facility] [address] [id number] [place] [address] October, [facility] [place] [facility] [address] [id number] [place] [address] October, [facility] [place] [facility] [address] [id number] [place] [address] October, [facility] [place] [facility] [address] [id number] [place] [address] October, [facility] [place] [facility] [address] [id number] [place] [address] October, [facility] [place] [facility] [address] [id number] [place] [address] October, [facility] [place] [facility] [address] [id number] [place] [address] Sep, [facility] [place] [facility] [address] [id number] [place] [address] Sep, [facility] [place] [facility] [address] [id number] [place] [address] Sep, [facility] [place] [facility] [address] [id number] [place] [address] Sep, [facility] [place] [facility] [address] [id number] [place] [address] Sep, [facility] [place] [facility] [address] [id number] [place] [address] Sep, [facility] [place] [facility] [address] [id number] [place] [address] Sep, [facility] [place] [facility] [address] [id number] [place] [address] 08 Sep, 2013 [facility] [place] [facility] [address] [id number] [place] [address] 26 Aug, 2013 [facility] [place] [facility] [address] [id number] [place] [address] 14 Aug, 2013 [facility] [place] [facility] [address] [id number] [place] [address] 14 Aug, 2013 [facility] [place] [facility] [address] [id number] [place] [address] 13 Aug, 2013 [facility] [place] [facility] [address] [id number] [place] [address] 13 Aug, 2013 [facility] [place] [facility] [address] [id number] [place] [address] 07 Aug, 2013 [facility] [place] [facility] [address] [id number] [place] [address] 24 Jul, 2013 [facility] [place] [facility] [address] [id number] [place] [address] 24 Jul, 2013 [facility] [place] [facility] [address] [id number] [place] [address] 06 Jul, 2013 [facility] [place] [facility] [address] [facility] [id number] [place] [address] 06 Jul, 2013 [facility] [place] [facility] [address] [id number] [place] [address] May, [facility] [place] [facility] [address] [id number] [place] [address] May, [facility] [place] [facility] [address] [id number] [place] [address] May, [facility] [place] [facility] [address] [id number] [place] [address] May, [facility] [place] [facility] [address] [id number] [place] [address] Apr, [facility] [place] [facility] [address] [id number] [place] [address] Apr, [facility] [place] [facility] [address] [id number] [place] [address] Apr, [facility] [place] [facility] [address] [id number] [place] [address] Apr, [facility] [place] [facility] [address] [id number] [place] [address] Apr, [facility] [place] [facility] [address] [id number] [place] [address] Apr, [facility] [place] [facility] [address] [id number] [place] [address] Apr, [facility] [place] [facility] [address] [id number] [place] [address] Apr, [facility] [place] [facility] [address] [id number] [place] [address] Mar, [facility] [place] [facility] [address] [id number] [place] [address] Dec, [facility] [place] [facility] [address] [id number] [place] [address] Dec, [facility] [place] [facility] [address] [id number] [place] [address] Nov, [facility] [place] [facility] [address] [id number], [place] [address] Nov, [facility] [place] [facility] [address] [id number] [place] [address] Nov, [facility] [place] [facility] [address] [id number] [place] [address] Sep, [facility] [place] [facility] [address] [id number], [place] [address] Aug, [facility] [place] [facility] [address] [id number], [place] [address] Aug, [facility] [place] [facility] [address] [id number] [place] [address] Aug, [facility] [place] [facility] [address] [id number] [place] [address] Aug, [facility] [place] [facility] [address] [facility] [id number] [place] [address] Jul, [facility] [place] [facility] [address] [id number] [place] [address] Jul, [facility] [place] [facility] [address] [facility] [id number] [place] [address] May, [facility] [place] [facility] [address] [facility] [id number] [place] [address] May, [facility] [place] [facility] [address] [facility] [id number] [place] [address] May, [facility] [place] [facility] [address] [facility] [id number] [place] [address] Apr, [facility] [place] [facility] [address] [facility] [id number] [place] [address] Apr, [facility] [place] [facility] [address] [facility] [id number] [place] [address] Apr, [facility] [place] [facility] [address] [facility] [id number] [place] [address] Apr, [facility] [place] [facility] [address] [facility] [id number], [place] [address] Apr, [facility] [place] [facility] [address] [facility] [id number] [place] [address] Apr, [facility] [place] [facility] [address] [facility] [id number] [place] [address] Mar, [facility] [place] [facility] [address] [facility] [id number], [place] [address] Mar, [facility] [place] [facility] [address] [id number] [place] [address] 08 Mar, 2012 [facility] [place] [facility] [address] [id number] [place] [address] 14 Feb, 2012 [facility] [place] [facility] [address] [id number] [place] [address] 11 Feb, 2012 [facility] [place] [facility] [address] [id number] [place] [address] 11 Feb, 2012 [facility] [place] [facility] [address] [id number] [place] [address] 24 Jan, 2012 [facility] [place] [facility] [address] [id number] [place] [address] Jan, [facility] [place] [facility] [address] [id number] [place] [address] Jan, [facility] [place] [facility] [address] [id number] [place] [address] Jan, [facility] [place] [facility] [address] [id number] [place] [address] Dec, [facility] [place] [facility] [address] [id number] [place] [address] Dec, [facility] [place] [facility] [address] [id number] [place] [address] Nov, [facility] [place] [facility] [address] [id number] [place] [address] Nov, [facility] [place] [facility] [address] [id number] [place] [address] October, [facility] [place] [facility] [address] [id number] [place] [address] October, [facility] [place] [facility] [address] [id number] [place] [address] Sep, [facility] [place] [facility] [address] [id number] [place] [address] Aug, [facility] [place] [facility] [address] [id number] [place] [address] Aug, [facility] [place] [facility] [address] [id number] [place] [address] Jul, [facility] [place] [facility] [address] [facility] [id number] [place] [address] Jun, [facility] [place] [facility] [address] [id number] [place] [address] Jun, [facility] [place] [facility] [address] [id number] [place] [address] Jun, [facility] [place] [facility] [address] [id number] [place] [address] Jun, [facility] [place] [facility] [address] [id number] [place] [address] May, [facility] [place] [facility] [address] [id number] [place] [address] May, [facility] [place] [facility] [address] [id number] [place] [address] Mar, [facility] [place] [facility] [address] [id number] [place] [address] Mar, [facility] [place] [facility] [address] [id number], [place] [address] Feb, [facility] [place] [facility] [address] [id number], [place] [address] Dec, [facility] [place] [facility] [address] [id number] [place] [address] Aug, [facility] [place] [facility] [address] [id number], [place] [address] 16 Aug, 2010 [facility] [place] [facility] [address] [id number] [place] [address] May, [facility] [place] [facility] [address] [facility] [id number] [place] [address] Jan, [facility] [address] [facility] [id number], [place] [address] Apr, [facility] [address] [id number], [place] [address] Apr, [facility] [address] [facility] [id number], [place] [address] Jan, [facility] [address] [facility] [id number], [place] [address] Aug, IMMUNIZATIONS No Known Immunizations SOCIAL HISTORY Never Assessed REASON FOR VISIT chest congestion started a couple days ago JStrasserRN, Vaginal itch and dischar ge started about 1 week ago PLAN OF CARE Activity Details Follow Up prn Reason: VITAL SIGNS Height 64 in 2016-12-03 Weight 166.4 lbs 2016-12-03 Temperature 96.9 degrees Fahrenheit 2016-12-03 Heart Rate 74 bpm 2016-12-03 Respiratory Rate 18 2016-12-03 Oximetry 96 % 2016-12-03 BMI 28.56 kg/m2 2016-12-03 Blood pressure systolic 138 mmHg 2016-12-03 Blood pressure diastolic 76 mmHg 2016-12-03 MEDICATIONS Medication Instructions Dosage Frequency Start Date End Date Duration Status Naproxen 500 MG Orally every 12 hrs 1 tablet as needed 12h Mar, Active PredniSONE 20 MG Orally Once a day 2 tablet 24h Nov, Nov, 5 days Active Doxycycline Hyclate 100 MG Orally every 12 hrs 1 capsule 12h Nov, Dec, 10 days Active Ibuprofen 200 MG Orally every 6 hrs 1 tablet as needed 6h Active Ativan 0.5 MG Orally twice a day 1 tablet as needed 12h Jul, Active Diflucan 150 MG Orally Take on tablet today and repeat in 72 hours as directed Nov, Nov, 4 days Active MetFORMIN HCl ER 500 MG Orally 2 times a day 2 tablets 12h Mar, 30 day(s) Active Albuterol Sulfate (2.5 MG/3ML) 0.083% Inhalation Three times a day. DX: J44.9 3 ml Apr, Active Meclizine HCl 25 MG Orally Once a day 1 tablet as needed 24h Sep, 30 day(s) Active Sertraline HCl 100 MG Orally Once a day 1 tablet 24h 05 Mar, 2015 Active ProAir HFA 108 (90 Base) MCG/ACT Inhalation 4 times a day 2 puffs as needed 6h Apr, Active RESULTS No Results PROCEDURES Procedure Date Ordered Result Body Site NEBULIZER TREATMENT 2016-12-03 N/A NEB/MDI RX INITIAL December 03, 2016 [facility] VISIT ESTABLISHED PATIENT December 03, 2016 MEASURE BLOOD OXYGEN LEVEL December 03, 2016 INSTRUCTIONS MEDICATIONS ADMINISTERED No Known Medications MEDICAL [...]
--- OUTSIDE RECORDS SUMMARY | 2019-01-20 15:04 | XMS REPORT ---
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 Name Role Phone PK Travis Unavailable PROBLEMS Type Condition ICD9-CM Code ACJ44-VD Code Onset Dates Condition Status SNOMED Code Problem Dementia in other diseases classified elsewhere without behavioral disturbance F02.80 Active 182656940 Problem Controlled type 2 diabetes mellitus without complication, without long- term current use of insulin E11.9 Active 680098900 Problem Other Alzheimers disease G30.8 Active 25138061 Problem 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 Active 38834110 Problem Type 2 diabetes mellitus with hyperglycemia E11.65 Active [id number] Problem Moderate episode of recurrent major depressive disorder F33.1 Active 725747215 Problem Uncontrolled type 2 diabetes mellitus without complication, without long- term current use of insulin E11.65 Active 192444069 Problem Dementia in other diseases classified elsewhere with behavioral disturbance F02.81 Active 729112108 Problem Alzheimer''s disease with early onset G30.0 Active 4965871 Problem Polyneuropathy G62.9 Active 40374451 Problem Flat foot [pes planus] (acquired), right foot M21.41 Active 11608829 Problem Corns L84 Active 815835629 Problem Exertional dyspnea R06.09 Active 69507674 Problem Anxiety F41.9 Active 65224152 Problem Diabetes E11.9 Active 214891599 Problem Chronic obstructive pulmonary disease, unspecified COPD type J44.9 Active 76935963 Problem Acute exacerbation of chronic obstructive pulmonary disease (COPD) J44.1 Active 932465988 Problem Diabetes type 2, controlled E11.9 Active 06795167 Problem Alzheimers disease with early onset G30.0 Active 9974226 ALLERGIES Substance Reaction Event Type Date Status SulfADIAZINE shortness of breath Drug Allergy Dec, Active Lisinopril hypotension Drug Allergy Dec, Active Cozaar hypotension Drug Allergy Dec, Active Aspirin Unknown Drug Allergy Dec, Active ENCOUNTERS Encounter Location Date Diagnosis [place] [id number] [place] [address] October, [place] [id number] [place] [address] Aug, Alzheimer''s disease with early onset G30.0 ; Dementia in other diseases classified elsewhere with behavioral disturbance F02.81 ; 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 and Type 2 diabetes mellitus with hyperglycemia E11.65 [place] [id number] [place] [address] Jul, [place] [id number] [place] [address] Jul, Alzheimer''s disease with early onset G30.0 ; Dementia in other diseases classified elsewhere with behavioral disturbance F02.81 and Uncontrolled type 2 diabetes mellitus without complication, without long-term current use of insulin E11.65 [place] [id number] [place] [address] May, Diabetes type 2, controlled E11.9 ; Bilateral otitis media with effusion H65.93 and Dizziness R42 [facility] [id number] [place] [address] 17 Apr, 2017 Dysuria R30.0 and Acute cystitis with hematuria N30.01 [place] [id number] [place] [address] 02 Apr, 2017 Moderate episode of recurrent major depressive disorder F33.1 [facility] [id number] [place] [address] 18 Mar, 2017 Acute cystitis without hematuria N30.00 [place] [id number] [place] [address] 28 Feb, 2017 Uncontrolled type 2 diabetes mellitus without complication, without long-term current use of insulin E11.65 ; Other Alzheimer''s disease G30.8 and Dementia in other diseases classified elsewhere without behavioral disturbance F02.80 [place] [id number] [place] [address] Jan, Diabetes type 2, controlled E11.9 and Alzheimers disease with early onset G30.0 [facility] [place] [address] [address] Dec, Allergic contact dermatitis due to plants, except food L23.7 [facility] [place] [address] [address] Dec, Dysuria R30.0 and Candidiasis of female genitalia B37.[address] [address] Dec, Diabetes E11.9 and Alzheimers disease with early onset G30.0 [facility] [address] [address] Nov, Acute exacerbation of chronic obstructive pulmonary disease (COPD) J44.1 and Vaginal candidiasis B37.[address] [address] Nov, Controlled type 2 diabetes mellitus without complication, without long-term current use of insulin E11.9 and Other Alzheimers disease G30.8 [place] [address] [address] October, OME (otitis media with effusion), bilateral H65.93 ; Dizziness R42 and Diabetes E11.9 [facility] [place] [id number] [place] [address] Sep, Vertigo R42 ; Heart murmur R01.1 and Dysfunction of inner ear, bilateral H83.93 [place] [address] [address] Aug, Acute suppurative otitis media of both ears without spontaneous rupture of tympanic membranes, recurrence not specified H66.003 [facility] [address] [place] [address] Aug, Vaginal irritation N89.8 and Acute exacerbation of chronic obstructive pulmonary disease (COPD) J44.1 [place] [id number] [place] [address] 27 Jul, 2016 Dementia in other diseases classified elsewhere without behavioral disturbance F02.80 [place] [address] [address] Jul, [place] [address] [address] Jun, Diabetes type 2, controlled E11.9 ; Alzheimers disease with early onset G30.0 and Dementia in other diseases classified elsewhere without behavioral disturbance F02.80 [place] [address] [address] May, Diabetes type 2, controlled E11.9 [facility] [address] [place] [address] May, Vaginal candidiasis B37.3 and Dysuria R30.0 [facility] [address] [address] 05 May, 2016 Cutaneous abscess of head [any part, except face] L02.811 ; Cellulitis of head [any part, except face] L03.811 ; COPD exacerbation J44.1 and Wheezing R06.2 [place] [id number] [place] [address] Apr, [address] [address] Apr, Diabetes E11.9 ; Acute upper respiratory infection, unspecified J06.9 and Vagina, candidiasis B37.3 [facility] [place] [id number] [place] [address] Mar, Acute exacerbation of chronic obstructive pulmonary disease (COPD) J44.1 [place] [address] [address] Mar, Diabetes type 2, controlled E11.9 [facility] [id number] [place] [address] Feb, Acute bronchitis, unspecified organism J20.9 [facility] [address] [place] [address] Feb, Controlled type 2 diabetes mellitus without complication, without long-term current use of insulin E11.9 [facility] [id number] [place] [address] Jan, Controlled type 2 diabetes mellitus without complication, without long-term current use of insulin E11.9 and Anxiety F41.9 [place] [id number] [place] [address] Dec, [place] [id number] [place] [address] Nov, Diabetes type 2, controlled E11.9 [facility] [id number] [place] [address] Nov, Acute pain of left shoulder M25.512 [facility] [id number] [place] [address] October, Cellulitis of face L03.211 [place] [id number] [place] [address] October, Diabetes type 2, controlled E11.9 [facility] [id number] [place] [address] October, Diabetes type 2, controlled E11.9 [place] [id number] [place] [address] Sep, Generalized anxiety disorder F41.1 ; Depression F32.9 and FH: memory loss Z82.0 [facility] [address] [place] [address] Sep, FH: memory loss Z82.0 ; Major depression, recurrent F33.9 and Anxiety disorder, unspecified F41.9 [place] [id number] [place] [address] Aug, PTSD (post-traumatic stress disorder) F43.10 ; Generalized anxiety disorder F41.1 and FH: memory loss Z82.0 [place] [id number] [place] [address] Aug, FH: memory loss Z82.0 ; Depression F32.9 and PTSD (post-traumatic stress disorder) F43.10 [place] [id number] [place] [address] Jul, Major depression, recurrent F33.9 ; Generalized anxiety disorder F41.1 and Alzheimer disease G30.9 [place] [id number] [place] [address] Jul, Diabetes E11.9 and Mood disorder F39 [place] [id number] [place] [address] Jul, Dental examination Z01.20 [place] [id number] [place] [address] Apr, Exertional dyspnea R06.09 and Chronic obstructive pulmonary disease, unspecified COPD type J44.9 [place] [id number] [place] [address] Mar, [place] [id number] [place] [address] Mar, Diabetes E11.9 [place] [id number] [place] [address] Mar, Diabetes E11.9 ; COPD (chronic obstructive pulmonary disease) J44.9 and Hip pain, right M25.551 [place] [id number] [place] [address] Dec, [place] [address] [place] [address] [address] Nov, COPD exacerbation 491.21 and Wheezing 786.07 [facility] [id number] [place] [address] October, Acute contact dermatitis 692.9 and Anhedonia 780.99 [facility] [id number] [place] [address] October, [facility] [id number] [place] [address] Sep, [facility] [id number] [place] [address] Sep, [facility] [id number] [place] [address] Aug, [facility] [id number] [place] [address] Aug, [facility] [id number] [place] [address] Aug, [facility] [address] [place] [address] Aug, [facility] [id number] [place] [address] Jul, [facility] [address] [address] Jul, [facility] [address] [address] Jul, [facility] [address] [place] [address] Jul, [facility] [id number] [address] Jul, [facility] [address] [place] [address] Jul, [facility] [place] [facility] [address] [id number] [place] [address] May, [facility] [place] [facility] [address] [id number] [place] [address] May, [facility] [place] [facility] [address] [id number] [place] [address] May, [facility] [place] [facility] [address] [id number] [place] [address] May, [facility] [place] [facility] [address] [id number] [place] [address] May, [facility] [place] [facility] [address] [id number] [place] [address] May, [facility] [place] [facility] [address] [id number] [place] [address] Apr, [facility] [place] [facility] [address] [id number] [place] [address] Apr, [facility] [place] [facility] [address] [id number] [place] [address] Apr, [facility] [place] [facility] [address] [id number] [place] [address] Apr, [facility] [place] [facility] [address] [id number] [place] [address] Mar, [facility] [place] [facility] [address] [id number] [place] [address] Mar, [facility] [place] [facility] [address] [id number] [place] [address] Feb, [facility] [place] [facility] [address] [id number] [place] [address] Feb, [facility] [place] [facility] [address] [id number] [place] [address] Jan, [facility] [place] [facility] [address] [id number] [place] [address] Jan, [facility] [place] [facility] [address] [id number] [place] [address] Dec, [facility] [place] [facility] [address] [id number] [place] [address] Dec, [facility] [place] [facility] [address] [id number] [place] [address] October, [facility] [place] [facility] [address] [id number] [place] [address] October, [facility] [place] [facility] [address] [id number] [place] [address] October, [facility] [place] [facility] [address] [id number] [place] [address] October, [facility] [place] [facility] [address] [id number] [place] [address] October, [facility] [place] [facility] [address] [id number] [place] [address] October, [facility] [place] [facility] [address] [id number] [place] [address] Sep, [facility] [place] [facility] [address] [id number] [place] [address] Sep, [facility] [place] [facility] [address] [id number] [place] [address] Sep, [facility] [place] [facility] [address] [id number] [place] [address] Sep, [facility] [place] [facility] [address] [id number] [place] [address] Sep, [facility] [place] [facility] [address] [id number] [place] [address] Sep, [facility] [place] [facility] [address] [id number] [place] [address] Sep, [facility] [place] [facility] [address] [id number] [place] [address] 08 Sep, 2013 [facility] [address] [id number] [place] [address] 26 Aug, 2013 [facility] [place] [facility] [address] [id number] [place] [address] 14 Aug, 2013 [facility] [place] [facility] [address] [id number] [place] [address] 14 Aug, 2013 [facility] [place] [facility] [address] [id number] [place] [address] 13 Aug, 2013 [facility] [address] [id number] [place] [address] 13 Aug, 2013 [facility] [place] [facility] [address] [id number] [place] [address] 07 Aug, 2013 [facility] [place] [facility] [address] [id number] [place] [address] 24 Jul, 2013 [facility] [place] [facility] [address] [id number] [place] [address] 24 Jul, 2013 [facility] [place] [facility] [address] [facility] [id number] [place] [address] Jul, [facility] [address] [facility] [id number] [place] [address] Jul, [facility] [place] [facility] [address] [id number] [place] [address] May, [facility] [place] [facility] [address] [id number] [place] [address] May, [facility] [place] [facility] [address] [id number] [place] [address] May, [facility] [place] [facility] [address] [facility] [id number] [place] [address] May, [facility] [place] [facility] [address] [facility] [id number] [place] [address] Apr, [facility] [place] [facility] [address] [id number] [place] [address] Apr, [facility] [place] [facility] [address] [id number] [place] [address] Apr, [facility] [place] [facility] [address] [id number] [place] [address] Apr, [facility] [place] [facility] [address] [id number] [place] [address] Apr, [facility] [place] [facility] [address] [id number] [place] [address] Apr, [facility] [place] [facility] [address] [id number] [place] [address] Apr, [facility] [place] [facility] [address] [id number] [place] [address] Apr, [facility] [place] [facility] [address] [id number] [place] [address] Mar, [facility] [place] [facility] [address] [id number] [place] [address] Dec, [facility] [place] [facility] [address] [id number], [place] [address] Dec, [facility] [place] [facility] [address] [id number], [place] [address] Nov, [facility] [place] [facility] [address] [id number], [place] [address] Nov, [facility] [place] [facility] [address] [id number] [place] [address] Nov, [facility] [place] [facility] [address] [id number] [address] Sep, [facility] [place] [facility] [address] [id number] [place] [address] Aug, [facility] [place] [facility] [address] [id number] [place] [address] Aug, [facility] [place] [facility] [address] [id number] [place] [address] 08 Aug, 2012 [facility] [place] [facility] [address] [id number] [place] [address] Aug, [facility] [place] [facility] [address] [id number] [place] [address] Jul, [facility] [place] [facility] [address] [id number] [place] [address] Jul, [facility] [place] [facility] [address] [id number] [place] [address] May, [facility] [place] [facility] [address] [id number] [place] [address] May, [facility] [place] [facility] [address] [id number] [place] [address] May, [facility] [place] [facility] [address] [id number] [place] [address] Apr, [facility] [place] [facility] [address] [id number] [place] [address] Apr, [facility] [place] [facility] [address] [facility] [id number] [place] [address] Apr, [facility] [place] [facility] [address] [id number] [place] [address] Apr, [facility] [place] [facility] [address] [id number] [place] [address] Apr, [facility] [place] [facility] [address] [id number] [place] [address] Apr, [facility] [place] [facility] [address] [id number] [place] [address] Mar, [facility] [place] [facility] [address] [id number] [place] [address] Mar, [facility] [place] [facility] [address] [id number] [place] [address] 08 Mar, 2012 [facility] [place] [facility] [address] [id number] [place] [address] 14 Feb, 2012 [facility] [place] [facility] [address] [id number] [place] [address] Feb, [facility] [place] [facility] [address] [id number] [place] [address] Feb, [facility] [place] [facility] [address] [id number] [place] [address] 24 Jan, 2012 [facility] [place] [facility] [address] [id number] [place] [address] Jan, [facility] [place] [facility] [address] [id number] [place] [address] Jan, [facility] [place] [facility] [address] [id number] [place] [address] Jan, [facility] [place] [facility] [address] [id number] [place] [address] Dec, [facility] [place] [facility] [address] [id number] [place] [address] Dec, [facility] [place] [facility] [address] [id number] [place] [address] Nov, [facility] [place] [facility] [address] [id number] [place] [address] Nov, [facility] [place] [facility] [address] [id number] [place] [address] October, [facility] [place] [facility] [address] [id number] [place] [address] October, [facility] [place] [facility] [address] [id number] [place] [address] Sep, [facility] [place] [facility] [address] [id number], [place] [address] Aug, [facility] [address] [id number] [place] [address] Aug, [facility] [place] [facility] [address] [id number] [place] [address] Jul, [facility] [place] [facility] [address] [id number] [place] [address] Jun, [facility] [place] [facility] [address] [id number] [place] [address] Jun, [facility] [place] [facility] [address] [id number] [place] [address] Jun, [facility] [place] [facility] [address] [id number] [place] [address] Jun, [facility] [address] [id number] [place] [address] May, [facility] [place] [facility] [address] [id number] [place] [address] May, [facility] [place] [facility] [address] [id number] [place] [address] Mar, [facility] [place] [facility] [address] [id number] [place] [address] Mar, [facility] [place] [facility] [address] [id number], [place] [address] Feb, [facility] [place] [facility] [address] [id number], [place] [address] Dec, [facility] [place] [facility] [address] [id number] [place] [address] Aug, [facility] [place] [facility] [address] [id number] [place] [address] 16 Aug, 2010 [facility] [place] [facility] [address] [id number] [place] [address] May, [facility] [place] [facility] [address] [facility] [id number] [place] [address] Jan, [facility] [address] [facility] [id number], [place] [address] Apr, [facility] [address] [facility] [id number], [place] [address] Apr, [facility] [address] [facility] [id number], [place] [address] Jan, [facility] [address] [facility] [id number], [place] [address] Aug, IMMUNIZATIONS No Known Immunizations SOCIAL HISTORY Never Assessed REASON FOR VISIT dysuria for the past 2 days. [email or web address] PLAN OF CARE Activity Details Follow Up prn Reason: VITAL SIGNS Height 64 in 2016-12-29 Weight 164.0 lbs 2016-12-29 Temperature 97.9 degrees Fahrenheit 2016-12-29 Heart Rate 88 bpm 2016-12-29 Respiratory Rate 20 2016-12-29 BMI 28.15 kg/m2 2016-12-29 Blood pressure systolic 128 mmHg 2016-12-29 Blood pressure diastolic 80 mmHg 2016-12-29 MEDICATIONS Medication Instructions Dosage Frequency Start Date End Date Duration Status ProAir HFA 108 (90 Base) MCG/ACT Inhalation 4 times a day 2 puffs as needed 6h Apr, Active Albuterol Sulfate (2.5 MG/3ML) 0.083% Inhalation Three times a day. DX: J44.9 3 ml Apr, Active Ibuprofen 200 MG Orally every 6 hrs 1 tablet as needed 6h Active Diflucan 100 MG Orally Once a day 1 tablet now then repeat in 72 hours 24h Dec, Dec, 3 days Active Sertraline HCl 100 MG Orally Once a day 1 tablet 24h Mar, Active Naproxen 500 mg Orally every 12 hrs 1 tablet as needed 12h Mar, Active Meclizine HCl 25 MG Orally Once a day 1 tablet as needed 24h Sep, 30 day(s) Active MetFORMIN HCl ER 500 MG Orally 2 times a day 2 tablets 12h Mar, 30 day(s) Active Ativan 0.5 MG Orally twice a day 1 tablet as needed 12h Jul, Active Aricept 5 mg Orally Once a day 1 tablet at bedtime 24h Jun, 30 day(s) Active RESULTS Name Result Date Reference Range UA LONG DIP (IN HOUSE) 2016-12-29 Lot # [id number] Exp date 10/11/17 Clarity clear Color yellow Odor no GLU 2+ AMBER Negative KET Negative SG 1.020 BLO 1+ pH 5.0 Protein Negative URO 0.2 NIT Negative LOVE Trace Lot # [id number] Exp date 07/2017 PROCEDURES Procedure Date Ordered Result Body Site URINALYSIS, AUTO, W/O SCOPE December 29, 2016 PENDING SALE TO [facility] VISIT ESTABLISHED PATIENT December 29, 2016 INSTRUCTIONS MEDICATIONS ADMINISTERED No Known Medications [...]
--- OUTSIDE RECORDS SUMMARY | 2019-01-20 15:04 | XMS REPORT ---
Author Author HERMILO VERDUGO [facility] Address [address] [place] [address] Care Team Providers Care Studio Coordinator Name Role Phone KARTIKHERMILO Unavailable PROBLEMS Type Condition ICD9-CM Code [id number] Code Onset Dates Condition Status SNOMED Code Problem Diabetes type 2, controlled E11.9 Active 55004512 Problem Diabetes E11.9 Active 821092836 Problem Anxiety F41.9 Active 18096195 Problem Uncontrolled type 2 diabetes mellitus without complication, without long- term current use of insulin E11.65 Active 502249335 Problem Controlled type 2 diabetes mellitus without complication, without long- term current use of insulin E11.9 Active 054286384 Problem Alzheimers disease with early onset G30.0 Active 9297899 Problem Acute exacerbation of chronic obstructive pulmonary disease (COPD) J44.1 Active 878102743 Problem Other Alzheimers disease G30.8 Active 27509973 Problem Dementia in other diseases classified elsewhere without behavioral disturbance F02.80 Active 284982567 Problem Corns L84 Active 979776291 Problem Exertional dyspnea R06.09 Active 98821264 Problem Polyneuropathy G62.9 Active 19861817 Problem Chronic obstructive pulmonary disease, unspecified COPD type J44.9 Active 55534423 Problem Flat foot [pes planus] (acquired), right foot M21.41 Active 50369592 ALLERGIES Substance Reaction Event Type Date Status SulfADIAZINE shortness of breath Drug Allergy October, Active Lisinopril hypotension Drug Allergy October, Active Cozaar hypotension Drug Allergy October, Active Aspirin Unknown Drug Allergy October, Active SOCIAL HISTORY Never Assessed PLAN OF CARE VITAL SIGNS Height 64 in 2016-10-19 Weight 171.3 lbs 2016-10-19 Temperature 98.2 degrees Fahrenheit 2016-10-19 Heart Rate 68 bpm 2016-10-19 Respiratory Rate 18 2016-10-19 BMI 29.40 kg/m2 2016-10-19 Blood pressure systolic 130 mmHg 2016-10-19 Blood pressure diastolic 82 mmHg 2016-10-19 MEDICATIONS Medication Instructions Dosage Frequency Start Date End Date Duration Status Albuterol Sulfate (2.5 MG/3ML) 0.083% Inhalation Three times a day. DX: J44.9 3 ml Apr, Active Sertraline HCl 100 MG Orally Once a day 1 tablet 24h Mar, Active ProAir HFA 108 (90 Base) MCG/ACT Inhalation 4 times a day 2 puffs as needed 6h Apr, Active Meclizine HCl 25 MG Orally Once a day 1 tablet as needed 24h Sep, 30 day(s) Active Ativan 0.5 MG Orally twice a day 1 tablet as needed 12h 29 Jul, 2015 Active Ibuprofen 200 MG Orally every 6 hrs 1 tablet as needed 6h Active MetFORMIN HCl ER 500 MG Orally 2 times a day 2 tablets 12h Mar, 30 day(s) Active RESULTS Name Result Date Reference Range A1C (IN HOUSE) 2016-10-19 A1C IN HOUSE 12.8 4.3 - 5.6 % Previous A1c 10.7 Lot [id number] Exp date 06/2018 PROCEDURES Procedure Date Ordered Result Body Site [facility] VISIT ESTABLISHED PATIENT October 19, 2016 GLYCATED HEMOGLOBIN TEST October 19, 2016 IMMUNIZATIONS No Known Immunizations MEDICAL (GENERAL) HISTORY Type Description Date Medical [...]
--- OUTSIDE RECORDS SUMMARY | 2019-01-20 15:04 | XMS REPORT ---
Author Author HERMILO VERDUGO [facility] Address [address] [place] [address] Care Team Providers Care Fur Matcher Name Role Phone KARTIK HERMILO Unavailable PROBLEMS Type Condition ICD9-CM Code [id number] Code Onset Dates Condition Status SNOMED Code Assessment Controlled type 2 diabetes mellitus without complication, without long- term current use of insulin E11.9 Feb, Active 917004814 Problem Diabetes type 2, controlled E11.9 Active 31916484 Problem Exertional dyspnea R06.09 Active 42924727 Problem Flat foot [pes planus] (acquired), right foot M21.41 Active 20602835 Problem Chronic obstructive pulmonary disease, unspecified COPD type J44.9 Active 14064685 Problem Polyneuropathy G62.9 Active 53742029 Problem Corns L84 Active 909088329 ALLERGIES Substance Reaction Event Type Date Status Sulfur swelling Drug Allergy Feb, Active Lisinopril hypotension Drug Allergy Feb, Active Cozaar hypotension Drug Allergy Feb, Active Bactrim Unknown Drug Allergy Feb, Active Aspirin Unknown Drug Allergy Feb, Active SOCIAL HISTORY No smoking Hx information available PLAN OF CARE VITAL SIGNS Height 64 in 2016-02-20 Weight 176.8 lbs 2016-02-20 Heart Rate 64 bpm 2016-02-20 Respiratory Rate 18 2016-02-20 BMI 30.34 kg/m2 2016-02-20 Blood pressure systolic 136 mmHg 2016-02-20 Blood pressure diastolic 80 mmHg 2016-02-20 MEDICATIONS Medication Instructions Dosage Frequency Start Date End Date Duration Status ProAir HFA 108 (90 Base) MCG/ACT Inhalation 4 times a day 2 puffs as needed 6h Apr, Active Albuterol Sulfate (2.5 MG/3ML) 0.083% Inhalation Three times a day. DX: J44.9 3 ml Apr, Active Ativan 0.5 MG Orally twice a day 1 tablet as needed 12h 29 Jul, 2015 Active Sertraline HCl 100 MG Orally Once a day 1 tablet 24h Mar, Active MetFORMIN HCl ER 500 MG Orally 2 times a day 1 tablet with evening meal 12h Mar, 30 day(s) Active RESULTS No Results PROCEDURES Procedure Date Ordered Related Diagnosis Body Site [facility] VISIT ESTABLISHED PATIENT Feb 20, 2016 Office Visit, Est Pt., Level 3 Feb 20, 2016 IMMUNIZATIONS No Known Immunizations
--- OUTSIDE RECORDS SUMMARY | 2019-01-20 15:05 | XMS REPORT ---
Author Author CAROL BRYAN Organization [facility] Address [address] [place] [address] Care Team Providers Care Electric Freight Car Operator Name Role Phone CAROL BRYAN Unavailable PROBLEMS Type Condition ICD9-CM Code [id number] Code Onset Dates Condition Status SNOMED Code Problem Diabetes type 2, controlled E11.9 Active 52884914 Problem Diabetes E11.9 Active 323490255 Problem Anxiety F41.9 Active 12242256 Problem Uncontrolled type 2 diabetes mellitus without complication, without long- term current use of insulin E11.65 Active 795959481 Problem Controlled type 2 diabetes mellitus without complication, without long- term current use of insulin E11.9 Active 894419021 Problem Alzheimers disease with early onset G30.0 Active 8586406 Problem Acute exacerbation of chronic obstructive pulmonary disease (COPD) J44.1 Active 618190171 Problem Other Alzheimers disease G30.8 Active 51867318 Problem Dementia in other diseases classified elsewhere without behavioral disturbance F02.80 Active 699050363 Problem Corns L84 Active 074702411 Problem Exertional dyspnea R06.09 Active 44489583 Problem Polyneuropathy G62.9 Active 14282264 Problem Chronic obstructive pulmonary disease, unspecified COPD type J44.9 Active 32132397 Problem Flat foot [pes planus] (acquired), right foot M21.41 Active 38291647 ALLERGIES Substance Reaction Event Type Date Status SulfADIAZINE shortness of breath Drug Allergy Aug, Active Lisinopril hypotension Drug Allergy Aug, Active Cozaar hypotension Drug Allergy Aug, Active Aspirin Unknown Drug Allergy Aug, Active SOCIAL HISTORY Never Assessed PLAN OF CARE Activity Details Follow Up prn Reason: VITAL SIGNS Height 64 in 2016-08-31 Weight 174.0 lbs 2016-08-31 Temperature 97.6 degrees Fahrenheit 2016-08-31 Heart Rate 82 bpm 2016-08-31 Respiratory Rate 18 2016-08-31 BMI 29.86 kg/m2 2016-08-31 Blood pressure systolic 130 mmHg 2016-08-31 Blood pressure diastolic 78 mmHg 2016-08-31 MEDICATIONS Medication Instructions Dosage Frequency Start Date End Date Duration Status Aricept 5 mg Orally Once a day 1 tablet at bedtime 24h Jun, 30 day(s) Active Sertraline HCl 100 MG Orally Once a day 1 tablet 24h Mar, Active Ibuprofen 200 MG Orally every 6 hrs 1 tablet as needed 6h Active Ativan 0.5 MG Orally twice a day 1 tablet as needed 12h Jul, Active Albuterol Sulfate (2.5 MG/3ML) 0.083% Inhalation Three times a day. DX: J44.9 3 ml Apr, Active ProAir HFA 108 (90 Base) MCG/ACT Inhalation 4 times a day 2 puffs as needed 6h Apr, Active MetFORMIN HCl ER 500 MG Orally 2 times a day 2 tablets 12h Mar, 30 day(s) Active PredniSONE 10 mg Orally Once a day 4 tab x 4 days, 3 tabs x 4 days, 2 tabs x 4 days, then 1 tab x 4 days. 24h Aug, Sep, 16 days Active Azithromycin 250 MG Orally Once a day 2 tablets on the first day, then 1 tablet daily for 4 days 24h Aug, Aug, 5 day(s) Active RESULTS Name Result Date Reference Range UA LONG DIP (IN HOUSE) 2016-08-31 Lot # [id number] Exp date 2017 06 31 Clarity clear Color yellow Odor none GLU 2+ AMBER negative KET negative SG 1.025 BLO trace pH 5.5 Protein negative URO 0.2 NIT negative LOVE negative Lot # [id number] Exp date 2017 07 PROCEDURES Procedure Date Ordered Result Body Site URINALYSIS, AUTO, W/O SCOPE August 31, 2016 [facility] VISIT ESTABLISHED PATIENT August 31, 2016 IMMUNIZATIONS No Known Immunizations MEDICAL (GENERAL) [...]
--- OUTSIDE RECORDS SUMMARY | 2019-01-20 15:05 | XMS REPORT ---
Author Author HERMILO VERDUGO Organization [employer] Address Unknown Phone Unavailable Care Team Providers Care Bull Chain Operator Name Role Phone HERMILO VERDUGO CP Unavailable Allergies No Known Allergies Problems Problem Type Condition Code Onset Dates Condition Status Problem Unspecified breast screening V76.10 Active Problem Postcoital bleeding 626.7 Active Problem Routine gynecological examination V72.31 Active Assessment Diabetes E11.9 Active Problem Polyneuropathy in diabetes 357.2 Active Problem Corns and callosities 700 Active Problem Diabetes E11.9 Active Problem Unspecified renal failure 586 Active Problem Postmenopausal atrophic vaginitis 627.3 Active Problem Flat foot 734 Active Problem Chronic airway obstruction, not elsewhere classified 496 Active Medications Medication Code System Code Instructions Start Date End Date Status Dosage Naproxen [facility] [address]-12 500 MG Orally every 12 hrs Mar 18, 2015 1 tablet as needed Results No Known Results Summary Purpose [employer] Submission
--- OUTSIDE RECORDS SUMMARY | 2019-01-20 15:05 | XMS REPORT ---
Author Author HERMILO VERDUGO Organization [employer] Address Unknown Phone Unavailable Care Team Providers Care Tactical Air Defense Controller Name Role Phone HERMILO VERDUGO CP Unavailable [...] obstruction, not elsewhere classified 496 Active Medications No Known Medications Results No Known Results Summary Purpose [employer] Submission
--- OUTSIDE RECORDS SUMMARY | 2019-01-20 15:05 | XMS REPORT ---
Author Author HERMILO VERDUGO Organization [facility] Address [address] [place] [address] Care Team Providers Care Computer Training Specialist Name Role Phone KARTIK HERMILO Unavailable PROBLEMS Type Condition ICD9-CM Code BDX40-ES Code Onset Dates Condition Status SNOMED Code Problem Alzheimers disease with early onset G30.0 Active 1118317 Problem Moderate episode of recurrent major depressive disorder F33.1 Active 657075163 Problem Uncontrolled type 2 diabetes mellitus without complication, without long- term current use of insulin E11.65 Active 468522572 Problem Corns L84 Active 015578926 Problem Flat foot [pes planus] (acquired), right foot M21.41 Active 26062907 Problem Anxiety F41.9 Active 22273774 Problem Diabetes E11.9 Active 100100295 Problem Seasonal allergies J30.2 Active 354232323 Problem Type 2 diabetes mellitus with unspecified diabetic retinopathy without macular edema E11.319 Active 766668434 Problem Diabetic polyneuropathy associated with type 2 diabetes mellitus E11.42 Active 82831724 Problem Arthritis M19.90 Active 8336192 Problem Type 2 diabetes mellitus with hyperglycemia E11.65 Active [id number] Problem Major depressive disorder, recurrent, in full remission F33.42 Active 744363596 ALLERGIES Substance Reaction Event Type Date Status SulfADIAZINE shortness of breath Drug Allergy Jul, Active Lisinopril hypotension Drug Allergy Jul, Active Cozaar hypotension Drug Allergy Jul, Active Aspirin Unknown Drug Allergy Jul, Active ENCOUNTERS Encounter Location Date Diagnosis [facility] [address] [facility] [id number] [address] Nov, Diabetes E11.9 and Seasonal allergies J30.2 [facility] [address] [facility] [id number], [place] [address] October, Type 2 diabetes mellitus with hyperglycemia E11.65 and Type 2 diabetes mellitus with unspecified diabetic retinopathy without macular edema E11.319 [place] [id number] [place] [address] October, Diabetes E11.9 ; Alzheimers disease with early onset G30.0 ; Arthritis M19.90 ; Diabetic polyneuropathy associated with type 2 diabetes mellitus E11.42 and Major depressive disorder, recurrent, in full remission F33.42 [place] [id number] [place] [address] Sep, [place] [address] [place] [id number] [place] [address] Sep, Dysfunction of both eustachian tubes H69.83 [place] [id number] [place] [address] Aug, Alzheimer''s disease with early onset G30.0 ; Dementia in other diseases classified elsewhere with behavioral disturbance F02.81 ; 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 and Type 2 diabetes mellitus with hyperglycemia E11.65 [place] [address] [place] [id number] [place] [address] Jul, [place] [id number] [place] [address] Jul, Alzheimer''s disease with early onset G30.0 ; Dementia in other diseases classified elsewhere with behavioral disturbance F02.81 and Uncontrolled type 2 diabetes mellitus without complication, without long-term current use of insulin E11.65 [place] [address] [place] [id number] [place] [address] May, Diabetes type 2, controlled E11.9 ; Bilateral otitis media with effusion H65.93 and Dizziness R42 [facility] [address] [place] [id number] [place] [address] Apr, Dysuria R30.0 and Acute cystitis with hematuria N30.01 [place] [id number] [place] [address] Apr, Moderate episode of recurrent major depressive disorder F33.1 [facility] [place] [address] [place] [id number] [place] [address] 18 Mar, 2017 Acute cystitis without hematuria N30.00 [place] [address] [address] Feb, Uncontrolled type 2 diabetes mellitus without complication, without long-term current use of insulin E11.65 ; Other Alzheimer''s disease G30.8 and Dementia in other diseases classified elsewhere without behavioral disturbance F02.80 [place] [address] [address] Jan, Diabetes type 2, controlled E11.9 and Alzheimers disease with early onset G30.0 [facility] [address] [address] Dec, Allergic contact dermatitis due to plants, except food L23.7 [facility] [address] [address] Dec, Dysuria R30.0 and Candidiasis of female genitalia B37.[address] [address] Dec, Diabetes E11.9 and Alzheimers disease with early onset G30.0 [facility] [address] [address] Nov, Acute exacerbation of chronic obstructive pulmonary disease (COPD) J44.1 and Vaginal candidiasis B37.3 [place] [address] [address] 15 Nov, 2016 Controlled type 2 diabetes mellitus without complication, without long-term current use of insulin E11.9 and Other Alzheimers disease G30.[address] [address] October, OME (otitis media with effusion), bilateral H65.93 ; Dizziness R42 and Diabetes E11.9 [facility] [address] [address] Sep, Vertigo R42 ; Heart murmur R01.1 and Dysfunction of inner ear, bilateral H83.93 [place] [id number] [place] [address] Aug, Acute suppurative otitis media of both ears without spontaneous rupture of tympanic membranes, recurrence not specified H66.003 [facility] [address] [address] Aug, Vaginal irritation N89.8 and Acute exacerbation of chronic obstructive pulmonary disease (COPD) J44.[address] [address] Jul, Dementia in other diseases classified elsewhere without behavioral disturbance F02.80 [place] [id number] [place] [address] Jul, [address] [address] Jun, Diabetes type 2, controlled E11.9 ; Alzheimers disease with early onset G30.0 and Dementia in other diseases classified elsewhere without behavioral disturbance F02.80 [place] [id number] [place] [address] May, Diabetes type 2, controlled E11.9 [facility] [place] [id number] [place] [address] May, Vaginal candidiasis B37.3 and Dysuria R30.0 [facility] [address] [address] 05 May, 2016 Cutaneous abscess of head [any part, except face] L02.811 ; Cellulitis of head [any part, except face] L03.811 ; COPD exacerbation J44.1 and Wheezing R06.2 [place] [id number] [place] [address] Apr, [place] [id number] [place] [address] Apr, Diabetes E11.9 ; Acute upper respiratory infection, unspecified J06.9 and Vagina, candidiasis B37.3 [facility] [place] [address] [place] [id number] [place] [address] Mar, Acute exacerbation of chronic obstructive pulmonary disease (COPD) J44.1 [place] [address] [address] Mar, Diabetes type 2, controlled E11.9 [facility] [place] [address] [address] Feb, Acute bronchitis, unspecified organism J20.9 [place] [address] [address] Feb, Controlled type 2 diabetes mellitus without complication, without long-term current use of insulin E11.9 [place] [address] [address] Jan, Controlled type 2 diabetes mellitus without complication, without long-term current use of insulin E11.9 and Anxiety F41.9 [place] [address] [place] [id number] [place] [address] Dec, [place] [address] [place] [id number] [place] [address] Nov, Diabetes type 2, controlled E11.9 [place] [address] [place] [id number] [place] [address] Nov, Acute pain of left shoulder M25.512 [facility] [place] [address] [address] October, Cellulitis of face L03.211 [place] [address] [address] October, Diabetes type 2, controlled E11.9 [place] [address] [address] October, Diabetes type 2, controlled E11.9 [facility] [address] [place] [id number] [place] [address] Sep, Generalized anxiety disorder F41.1 ; Depression F32.9 and FH: memory loss Z82.0 [place] [address] [place] [id number] [place] [address] Sep, FH: memory loss Z82.0 ; Major depression, recurrent F33.9 and Anxiety disorder, unspecified F41.9 [place] [address] [place] [id number] [place] [address] Aug, PTSD (post-traumatic stress disorder) F43.10 ; Generalized anxiety disorder F41.1 and FH: memory loss Z82.0 [place] [address] [place] [id number] [place] [address] Aug, FH: memory loss Z82.0 ; Depression F32.9 and PTSD (post-traumatic stress disorder) F43.10 [place] [address] [place] [id number] [place] [address] Jul, Major depression, recurrent F33.9 ; Generalized anxiety disorder F41.1 and Alzheimer disease G30.9 [place] [address] [place] [id number] [place] [address] Jul, Diabetes E11.9 and Mood disorder F39 [place] [address] [place] [id number] [place] [address] Jul, Dental examination Z01.20 [place] [address] [place] [id number] [place] [address] Apr, Exertional dyspnea R06.09 and Chronic obstructive pulmonary disease, unspecified COPD type J44.9 [place] [address] [place] [id number] [place] [address] Mar, [place] [address] [place] [id number] [place] [address] Mar, Diabetes E11.9 [facility] [address] [place] [address] Mar, Diabetes E11.9 ; COPD (chronic obstructive pulmonary disease) J44.9 and Hip pain, right M25.551 [facility] [address] [place] [id number] [place] [address] Dec, [facility] [address] [address] Nov, COPD exacerbation 491.21 and Wheezing 786.07 [facility] [address] [address] October, Acute contact dermatitis 692.9 and Anhedonia 780.99 [facility] [address] [place] [id number] [place] [address] October, [facility] [address] [place] [id number] [place] [address] Sep, [facility] [address] [place] [id number] [place] [address] Sep, [facility] [address] [place] [id number] [place] [address] Aug, [facility] [address] [address] Aug, [facility] [address] [place] [id number] [place] [address] Aug, [facility] [address] [place] [address] Aug, [facility] [address] [place] [id number] [place] [address] Jul, [facility] [address] [address] Jul, [facility] [address] [place] [id number] [place] [address] Jul, 2014 [facility] [place] [facility] [address] [id number] [place] [address] Jul, 2014 [facility] [place] [facility] [address] [id number] [place] [address] Jul, [facility] [place] [facility] [address] [id number] [place] [address] Jul, [facility] [place] [facility] [address] [id number] [place] [address] May, [facility] [place] [facility] [address] [id number] [place] [address] May, [facility] [place] [facility] [address] [id number] [place] [address] May, [facility] [place] [facility] [address] [id number] [place] [address] May, [facility] [place] [facility] [address] [id number] [place] [address] May, [facility] [place] [facility] [address] [id number] [place] [address] May, [facility] [place] [facility] [address] [id number] [place] [address] Apr, [facility] [place] [facility] [address] [id number], [place] [address] Apr, [facility] [place] [facility] [address] [id number], [place] [address] Apr, [facility] [place] [facility] [address] [id number], [place] [address] Apr, [facility] [place] [facility] [address] [id number], [place] [address] Mar, [facility] [place] [facility] [address] [id number] [place] [address] Mar, [facility] [place] [facility] [address] [id number] [place] [address] Feb, [facility] [address] [id number] [place] [address] Feb, [facility] [place] [facility] [address] [id number] [place] [address] Jan, [facility] [address] [id number] [place] [address] Jan, [facility] [place] [facility] [address] [id number] [place] [address] Dec, [facility] [address] [id number] [place] [address] Dec, [facility] [address] [id number] [place] [address] October, [facility] [place] [facility] [address] [id number] [place] [address] October, [facility] [address] [id number] [place] [address] October, [facility] [place] [facility] [address] [id number] [place] [address] October, [facility] [address] [id number] [place] [address] October, [facility] [place] [facility] [address] [id number] [place] [address] October, [facility] [place] [facility] [address] [id number] [place] [address] Sep, [facility] [place] [facility] [address] [id number] [place] [address] Sep, [facility] [place] [facility] [address] [id number] [place] [address] Sep, [facility] [place] [facility] [address] [id number] [place] [address] Sep, [facility] [place] [facility] [address] [id number] [place] [address] Sep, [facility] [place] [facility] [address] [id number] [place] [address] Sep, [facility] [place] [facility] [address] [id number] [place] [address] Sep, [facility] [place] [facility] [address] [id number] [place] [address] Sep, [facility] [place] [facility] [address] [id number] [place] [address] Aug, [facility] [place] [facility] [address] [id number] [place] [address] Aug, [facility] [place] [facility] [address] [id number] [place] [address] 14 Aug, 2013 [facility] [place] [facility] [address] [id number] [place] [address] Aug, [facility] [place] [facility] [address] [id number] [place] [address] Aug, [facility] [place] [facility] [address] [id number] [place] [address] Aug, [facility] [place] [facility] [address] [id number] [place] [address] Jul, [facility] [place] [facility] [address] [id number] [place] [address] Jul, [facility] [place] [facility] [address] [id number] [place] [address] Jul, [facility] [place] [facility] [address] [id number] [place] [address] Jul, [facility] [place] [facility] [address] [id number] [place] [address] May, [facility] [place] [facility] [address] [id number] [place] [address] May, [facility] [address] [id number] [place] [address] May, [facility] [place] [facility] [address] [id number] [place] [address] May, [facility] [place] [facility] [address] [id number] [place] [address] Apr, [facility] [place] [facility] [address] [id number] [place] [address] Apr, [facility] [place] [facility] [address] [id number] [place] [address] Apr, [facility] [place] [facility] [address] [id number] [place] [address] Apr, [facility] [place] [facility] [address] [id number] [place] [address] Apr, [facility] [place] [facility] [address] [id number] [place] [address] Apr, [facility] [place] [facility] [address] [id number] [place] [address] Apr, [facility] [place] [facility] [address] [facility] [id number] [place] [address] Apr, [facility] [place] [facility] [address] [id number] [place] [address] Mar, [facility] [place] [facility] [address] [id number] [place] [address] Dec, [facility] [place] [facility] [address] [id number] [place] [address] Dec, [facility] [place] [facility] [address] [id number] [place] [address] Nov, [facility] [place] [facility] [address] [id number] [place] [address] Nov, [facility] [place] [facility] [address] [id number] [place] [address] Nov, [facility] [place] [facility] [address] [id number] [place] [address] Sep, [facility] [place] [facility] [address] [id number] [place] [address] Aug, [facility] [place] [facility] [address] [id number] [place] [address] Aug, [facility] [place] [facility] [address] [id number] [place] [address] Aug, [facility] [place] [facility] [address] [id number] [place] [address] Aug, [facility] [address] [facility] [id number] [place] [address] Jul, [facility] [place] [facility] [address] [id number] [place] [address] Jul, [facility] [place] [facility] [address] [id number] [place] [address] May, [facility] [place] [facility] [address] [id number] [place] [address] May, [facility] [place] [facility] [address] [id number] [place] [address] May, [facility] [place] [facility] [address] [id number], [place] [address] Apr, [facility] [place] [facility] [address] [id number] [place] [address] Apr, [facility] [place] [facility] [address] [id number] [place] [address] Apr, [facility] [place] [facility] [address] [id number] [place] [address] Apr, [facility] [place] [facility] [address] [id number] [place] [address] Apr, [facility] [place] [facility] [address] [id number] [place] [address] Apr, [facility] [place] [facility] [address] [id number] [place] [address] Mar, [facility] [place] [facility] [address] [id number] [place] [address] Mar, [facility] [place] [facility] [address] [id number] [place] [address] Mar, [facility] [place] [facility] [address] [id number] [place] [address] 14 Feb, 2012 [facility] [place] [facility] [address] [id number] [place] [address] Feb, [facility] [place] [facility] [address] [facility] [id number] [place] [address] Feb, [facility] [place] [facility] [address] [facility] [id number] [place] [address] Jan, [facility] [place] [facility] [address] [facility] [id number] [place] [address] Jan, [facility] [place] [facility] [address] [facility] [id number] [place] [address] Jan, [facility] [place] [facility] [address] [facility] [id number] [place] [address] Jan, [facility] [place] [facility] [address] [id number] [place] [address] Dec, [facility] [place] [facility] [address] [id number] [place] [address] Dec, [facility] [place] [facility] [address] [facility] [id number] [place] [address] Nov, [facility] [place] [facility] [address] [facility] [id number] [place] [address] Nov, [facility] [place] [facility] [address] [id number] [place] [address] October, [facility] [address] [id number] [place] [address] October, [facility] [place] [facility] [address] [id number] [place] [address] Sep, [facility] [place] [facility] [address] [id number] [place] [address] Aug, [facility] [place] [facility] [address] [id number] [place] [address] Aug, [facility] [place] [facility] [address] [id number] [place] [address] Jul, [facility] [place] [facility] [address] [id number] [place] [address] Jun, [facility] [place] [facility] [address] [id number] [place] [address] Jun, [facility] [place] [facility] [address] [id number] [place] [address] Jun, [facility] [place] [facility] [address] [id number] [place] [address] Jun, [facility] [place] [facility] [address] [id number] [place] [address] May, [facility] [place] [facility] [address] [id number] [place] [address] May, [facility] [place] [facility] [address] [id number] [place] [address] Mar, [facility] [place] [facility] [address] [id number] [place] [address] Mar, [facility] [place] [facility] [address] [id number] [place] [address] Feb, [facility] [place] [facility] [address] [id number] [place] [address] Dec, [facility] [address] [id number] [address] Aug, [facility] [id number] [address] Aug, [facility] [id number] [address] May, [facility] [id number] [address] Jan, [facility] [id number] [address] Apr, [facility] [id number] [place] [address] Apr, [facility] [id number] [address] Jan, [facility] [id number] [place] [address] Aug, IMMUNIZATIONS No Known Immunizations SOCIAL HISTORY Never Assessed REASON FOR VISIT Diabetes jjournotRN, spot on cheek., congestion PLAN OF CARE Activity Details Follow Up 4 Weeks Reason:alzheimers VITAL SIGNS Height 64 in 2017-07-15 Weight 158.4 lbs 2017-07-15 Temperature 98.0 degrees Fahrenheit 2017-07-15 Heart Rate 72 bpm 2017-07-15 Respiratory Rate 20 2017-07-15 BMI 27.19 kg/m2 2017-07-15 Blood pressure systolic 130 mmHg 2017-07-15 Blood pressure diastolic 74 mmHg 2017-07-15 MEDICATIONS Medication Instructions Dosage Frequency Start Date End Date Duration Status Rivastigmine 4.6 MG/24HR Transdermal Once a day 1 patch to skin 24h Jul, 30 day(s) Active Actos 15 mg Orally Once a day 1 tablet 24h Jul, 30 day(s) Active RESULTS No Results PROCEDURES Procedure Date Ordered Result Body Site [facility] VISIT ESTABLISHED PATIENT Jul 15, 2017 INSTRUCTIONS MEDICATIONS ADMINISTERED No Known [...]
--- OUTSIDE RECORDS SUMMARY | 2019-01-20 15:06 | XMS REPORT ---
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 Name Role Phone HERMILO VERDUGO Unavailable PROBLEMS Type Condition ICD9-CM Code UQI50-ZX Code Onset Dates Condition Status SNOMED Code Problem Flat foot [pes planus] (acquired), right foot M21.41 Active 52944693 Problem Diabetes E11.9 Active 225440869 Problem Anxiety F41.9 Active 00349485 Problem Corns L84 Active 312584026 Problem Major depressive disorder, recurrent, in full remission F33.42 Active 302213763 Problem Arthritis M19.90 Active 4553435 Problem Uncontrolled type 2 diabetes mellitus without complication, without long- term current use of insulin E11.65 Active 285376799 Problem Alzheimers disease with early onset G30.0 Active 6559010 Problem Diabetic polyneuropathy associated with type 2 diabetes mellitus E11.42 Active 57168908 Problem Moderate episode of recurrent major depressive disorder F33.1 Active 532458237 ALLERGIES Substance Reaction Event Type Date Status SulfADIAZINE shortness of breath Drug Allergy Feb, Active Lisinopril hypotension Drug Allergy Feb, Active Cozaar hypotension Drug Allergy Feb, Active Aspirin Unknown Drug Allergy Feb, Active ENCOUNTERS Encounter Location Date Diagnosis [facility] [id number] [address] October, Diabetes E11.9 ; Alzheimers disease with early onset G30.0 ; Arthritis M19.90 ; Diabetic polyneuropathy associated with type 2 diabetes mellitus E11.42 and Major depressive disorder, recurrent, in full remission F33.42 [facility] [id number] [address] Sep, [facility] [id number] [address] Sep, Dysfunction of both eustachian tubes H69.83 [place] [id number] [place] [address] Aug, Alzheimer''s disease with early onset G30.0 ; Dementia in other diseases classified elsewhere with behavioral disturbance F02.81 ; 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 and Type 2 diabetes mellitus with hyperglycemia E11.65 [place] [address] [address] Jul, [place] [id number] [place] [address] Jul, Alzheimer''s disease with early onset G30.0 ; Dementia in other diseases classified elsewhere with behavioral disturbance F02.81 and Uncontrolled type 2 diabetes mellitus without complication, without long-term current use of insulin E11.65 [place] [id number] [place] [address] May, Diabetes type 2, controlled E11.9 ; Bilateral otitis media with effusion H65.93 and Dizziness R42 [facility] IN [facility] [id number] [place] [address] Apr, Dysuria R30.0 and Acute cystitis with hematuria N30.01 [place] [id number] [place] [address] 02 Apr, 2017 Moderate episode of recurrent major depressive disorder F33.[address] [facility] IN [facility] [id number] [place] [address] Mar, Acute cystitis without hematuria N30.00 [place] [id number] [place] [address] Feb, Uncontrolled type 2 diabetes mellitus without complication, without long-term current use of insulin E11.65 ; Other Alzheimer''s disease G30.8 and Dementia in other diseases classified elsewhere without behavioral disturbance F02.80 [place] [id number] [place] [address] Jan, Diabetes type 2, controlled E11.9 and Alzheimers disease with early onset G30.0 [facility] [place] [id number] [place] [address] Dec, Allergic contact dermatitis due to plants, except food L23.[address] [facility] [place] [address] [address] Dec, Dysuria R30.0 and Candidiasis of female genitalia B37.3 [place] [address] [address] Dec, Diabetes E11.9 and Alzheimers disease with early onset G30.[address] [facility] IN [place] [address] [address] Nov, Acute exacerbation of chronic obstructive pulmonary disease (COPD) J44.1 and Vaginal candidiasis B37.[address] [address] Nov, Controlled type 2 diabetes mellitus without complication, without long-term current use of insulin E11.9 and Other Alzheimers disease G30.8 [place] [address] [address] October, OME (otitis media with effusion), bilateral H65.93 ; Dizziness R42 and Diabetes E11.[address] [facility] IN [address] [address] Sep, Vertigo R42 ; Heart murmur R01.1 and Dysfunction of inner ear, bilateral H83.93 [place] [id number] [place] [address] Aug, Acute suppurative otitis media of both ears without spontaneous rupture of tympanic membranes, recurrence not specified H66.[address] [facility] [place] [id number] [place] [address] Aug, Vaginal irritation N89.8 and Acute exacerbation of chronic obstructive pulmonary disease (COPD) J44.1 [place] [id number] [place] [address] Jul, Dementia in other diseases classified elsewhere without behavioral disturbance F02.80 [place] [id number] [place] [address] Jul, [place] [id number] [place] [address] Jun, Diabetes type 2, controlled E11.9 ; Alzheimers disease with early onset G30.0 and Dementia in other diseases classified elsewhere without behavioral disturbance F02.80 [place] [id number] [place] [address] May, Diabetes type 2, controlled E11.9 [facility] [place] [id number] [place] [address] May, Vaginal candidiasis B37.3 and Dysuria R30.0 [facility] [address] [address] May, Cutaneous abscess of head [any part, except face] L02.811 ; Cellulitis of head [any part, except face] L03.811 ; COPD exacerbation J44.1 and Wheezing R06.2 [id number] [place] [address] Apr, [place] [address] [id number] [place] [address] Apr, Diabetes E11.9 ; Acute upper respiratory infection, unspecified J06.9 and Vagina, candidiasis B37.3 [facility] [place] [id number] [place] [address] Mar, Acute exacerbation of chronic obstructive pulmonary disease (COPD) J44.1 [address] [place] [id number] [place] [address] Mar, Diabetes type 2, controlled E11.9 [facility] [address] [address] Feb, Acute bronchitis, unspecified organism J20.9 [facility] [id number] [place] [address] Feb, Controlled type 2 diabetes mellitus without complication, without long-term current use of insulin E11.9 [facility] [address] [address] Jan, Controlled type 2 diabetes mellitus without complication, without long-term current use of insulin E11.9 and Anxiety F41.9 [place] [id number] [place] [address] Dec, [facility] [id number] [place] [address] Nov, Diabetes type 2, controlled E11.9 [place] [id number] [place] [address] Nov, Acute pain of left shoulder M25.[address] [facility] [id number] [place] [address] October, Cellulitis of face L03.211 [place] [id number] [place] [address] October, Diabetes type 2, controlled E11.9 [facility] [address] [address] October, Diabetes type 2, controlled E11.9 [place] [address] [place] [address] Sep, Generalized anxiety disorder F41.1 ; Depression F32.9 and FH: memory loss Z82.0 [place] [id number] [place] [address] Sep, FH: memory loss Z82.0 ; Major depression, recurrent F33.9 and Anxiety disorder, unspecified F41.9 [facility] [id number] [place] [address] Aug, PTSD (post-traumatic stress disorder) F43.10 ; Generalized anxiety disorder F41.1 and FH: memory loss Z82.[address] [address] Aug, FH: memory loss Z82.0 ; Depression F32.9 and PTSD (post-traumatic stress disorder) F43.[address] [address] Jul, Major depression, recurrent F33.9 ; Generalized anxiety disorder F41.1 and Alzheimer disease G30.[address] [address] Jul, Diabetes E11.9 and Mood disorder F39 [address] [address] 17 Jul, 2015 Dental examination Z01.[address] [address] Apr, Exertional dyspnea R06.09 and Chronic obstructive pulmonary disease, unspecified COPD type J44.[address] [address] Mar, [address] [address] Mar, Diabetes E11.[address] [address] Mar, Diabetes E11.9 ; COPD (chronic obstructive pulmonary disease) J44.9 and Hip pain, right M25.[address] [address] Dec, [address] [address] Nov, COPD exacerbation 491.21 and Wheezing 786.[address] [address] October, Acute contact dermatitis 692.9 and Anhedonia 780.99 [facility] [id number] [place] [address] October, [facility] [id number] [address] Sep, [facility] [id number] [place] [address] Sep, [facility] [id number] [address] Aug, [facility] [id number] [place] [address] Aug, [facility] [id number] [place] [address] Aug, [facility] [address] [place] [address] Aug, [facility] [address] [address] Jul, [facility] [address] [address] Jul, [facility] [address] [address] Jul, [facility] [address] [address] Jul, [facility] [address] [address] Jul, [facility] [address] [address] Jul, [facility] [address] [address] May, [facility] [id number] [place] [address] May, [facility] [place] [facility] [address] [id number] [place] [address] May, [facility] [place] [facility] [address] [id number] [place] [address] May, [facility] [place] [facility] [address] [id number] [place] [address] May, [facility] [place] [facility] [address] [id number] [place] [address] May, [facility] [place] [facility] [address] [id number] [place] [address] Apr, [facility] [place] [facility] [address] [id number] [place] [address] Apr, [facility] [place] [facility] [address] [id number] [place] [address] Apr, [facility] [place] [facility] [address] [id number] [place] [address] Apr, [facility] [place] [facility] [address] [id number] [place] [address] Mar, [facility] [place] [facility] [address] [facility] [id number] [place] [address] Mar, [facility] [place] [facility] [address] [id number] [place] [address] Feb, [facility] [place] [facility] [address] [id number] [place] [address] Feb, [facility] [place] [facility] [address] [id number] [place] [address] Jan, [facility] [place] [facility] [address] [id number] [place] [address] Jan, [facility] [place] [facility] [address] [id number] [place] [address] Dec, [facility] [place] [facility] [address] [id number] [place] [address] Dec, [facility] [place] [facility] [address] [id number] [place] [address] October, [facility] [place] [facility] [address] [id number] [place] [address] October, [facility] [place] [facility] [address] [id number] [place] [address] October, [facility] [place] [facility] [address] [id number] [place] [address] October, [facility] [place] [facility] [address] [id number] [place] [address] October, [facility] [place] [facility] [address] [id number] [place] [address] October, [facility] [place] [facility] [address] [id number] [place] [address] Sep, [facility] [place] [facility] [address] [id number] [place] [address] Sep, [facility] [place] [facility] [address] [id number] [place] [address] Sep, [facility] [place] [facility] [address] [id number] [place] [address] Sep, [facility] [place] [facility] [address] [id number] [place] [address] Sep, [facility] [place] [facility] [address] [id number] [place] [address] Sep, [facility] [place] [facility] [address] [id number] [place] [address] Sep, [facility] [place] [facility] [address] [id number] [place] [address] Sep, [facility] [place] [facility] [address] [id number] [place] [address] 26 Aug, 2013 [facility] [place] [facility] [address] [id number] [place] [address] 14 Aug, 2013 [facility] [place] [facility] [address] [id number] [place] [address] 14 Aug, 2013 [facility] [place] [facility] [address] [id number] [place] [address] 13 Aug, 2013 [facility] [place] [facility] [address] [id number] [place] [address] 13 Aug, 2013 [facility] [place] [facility] [address] [id number] [place] [address] Aug, [facility] [place] [facility] [address] [id number] [place] [address] 24 Jul, 2013 [facility] [place] [facility] [address] [id number] [place] [address] 24 Jul, 2013 [facility] [place] [facility] [address] [id number] [place] [address] 06 Jul, 2013 [facility] [place] [facility] [address] [id number] [place] [address] 06 Jul, 2013 [facility] [place] [facility] [address] [facility] [id number] [place] [address] May, [facility] [place] [facility] [address] [id number] [place] [address] May, [facility] [place] [facility] [address] [id number] [place] [address] May, [facility] [place] [facility] [address] [id number] [place] [address] May, [facility] [place] [facility] [address] [facility] [id number] [place] [address] Apr, [facility] [place] [facility] [address] [facility] [id number] [place] [address] Apr, [facility] [place] [facility] [address] [id number] [place] [address] Apr, [facility] [place] [facility] [address] [id number] [place] [address] Apr, [facility] [place] [facility] [address] [id number] [place] [address] Apr, [facility] [place] [facility] [address] [id number] [place] [address] Apr, [facility] [place] [facility] [address] [id number] [place] [address] Apr, [facility] [place] [facility] [address] [id number] [place] [address] Apr, [facility] [place] [facility] [address] [id number] [place] [address] Mar, [facility] [place] [facility] [address] [id number] [place] [address] Dec, [facility] [place] [facility] [address] [id number] [place] [address] Dec, [facility] [place] [facility] [address] [id number] [place] [address] Nov, [facility] [place] [facility] [address] [id number] [place] [address] Nov, [facility] [place] [facility] [address] [id number] [place] [address] Nov, [facility] [place] [facility] [address] [id number] [place] [address] Sep, [facility] [place] [facility] [address] [id number] [place] [address] Aug, [facility] [place] [facility] [address] [id number] [place] [address] Aug, [facility] [place] [facility] [address] [id number] [place] [address] Aug, [facility] [place] [facility] [address] [id number] [place] [address] Aug, [facility] [place] [facility] [address] [id number] [place] [address] Jul, [facility] [place] [facility] [address] [facility] [id number] [place] [address] Jul, [facility] [place] [facility] [address] [id number] [place] [address] May, [facility] [place] [facility] [address] [id number] [place] [address] May, [facility] [place] [facility] [address] [facility] [id number] [place] [address] May, [facility] [place] [facility] [address] [facility] [id number] [place] [address] Apr, [facility] [place] [facility] [address] [id number] [place] [address] Apr, [facility] [place] [facility] [address] [id number] [place] [address] Apr, [facility] [place] [facility] [address] [facility] [id number] [place] [address] Apr, [facility] [place] [facility] [address] [id number] [place] [address] Apr, [facility] [place] [facility] [address] [id number] [address] Apr, [facility] [place] [facility] [address] [id number] [place] [address] Mar, [facility] [place] [facility] [address] [facility] [id number] [place] [address] Mar, [facility] [place] [facility] [address] [facility] [id number], [place] [address] Mar, [facility] [place] [facility] [address] [facility] [id number] [place] [address] 14 Feb, 2012 [facility] [address] [id number] [place] [address] 11 Feb, 2012 [facility] [place] [facility] [address] [id number] [place] [address] 11 Feb, 2012 [facility] [address] [id number] [place] [address] 24 Jan, 2012 [facility] [address] [id number] [place] [address] Jan, [facility] [address] [id number] [place] [address] Jan, [facility] [address] [id number] [place] [address] Jan, [facility] [address] [id number] [place] [address] Dec, [facility] [address] [id number] [place] [address] Dec, [facility] [address] [id number] [place] [address] Nov, [facility] [address] [id number] [place] [address] Nov, [facility] [place] [facility] [address] [id number] [place] [address] October, [facility] [address] [id number] [place] [address] October, [facility] [place] [facility] [address] [id number] [place] [address] Sep, [facility] [place] [facility] [address] [id number] [place] [address] Aug, [facility] [place] [facility] [address] [id number] [place] [address] Aug, [facility] [place] [facility] [address] [id number] [place] [address] Jul, [facility] [place] [facility] [address] [id number] [place] [address] Jun, [facility] [place] [facility] [address] [id number] [place] [address] Jun, [facility] [place] [facility] [address] [id number] [place] [address] Jun, [facility] [place] [facility] [address] [id number] [place] [address] Jun, [facility] [place] [facility] [address] [id number] [place] [address] May, [facility] [place] [facility] [address] [id number] [place] [address] May, [facility] [place] [facility] [address] [id number] [place] [address] Mar, [facility] [place] [facility] [address] [id number] [place] [address] Mar, [facility] [place] [facility] [address] [id number] [place] [address] Feb, [facility] [place] [facility] [address] [id number] [place] [address] Dec, [facility] [place] [facility] [address] [id number], [place] [address] Aug, [facility] [place] [facility] [address] [id number] [place] [address] Aug, [facility] [place] [facility] [address] [id number] [place] [address] May, [facility] [place] [facility] [address] [id number], [place] [address] Jan, [facility] [place] [facility] [address] [id number], [place] [address] Apr, [facility] [address] [facility] [id number] [place] [address] Apr, [facility] [address] [facility] [id number], [place] [address] Jan, [facility] [address] [facility] [id number], [place] [address] Aug, IMMUNIZATIONS No Known Immunizations SOCIAL HISTORY Never Assessed REASON FOR VISIT job [employer] PLAN OF CARE VITAL SIGNS Height 64 in 2017-03-11 Weight 161.6 lbs 2017-03-11 Temperature 98.0 degrees Fahrenheit 2017-03-11 Heart Rate 72 bpm 2017-03-11 Respiratory Rate 18 2017-03-11 BMI 27.74 kg/m2 2017-03-11 Blood pressure systolic 142 mmHg 2017-03-11 Blood pressure diastolic 84 mmHg 2017-03-11 MEDICATIONS Medication Instructions Dosage Frequency Start Date End Date Duration Status Albuterol Sulfate (2.5 MG/3ML) 0.083% Inhalation Three times a day. DX: J44.9 3 ml Apr, Active Sertraline HCl 100 MG Orally Once a day 1 tablet 24h Mar, Active Sertraline HCl 50 mg Orally Once a day 1 tablet 24h 28 Feb, 2017 30 day(s) Active MetFORMIN HCl ER 500 MG Orally 2 times a day 2 tablets 12h Mar, 30 day(s) Active Ibuprofen 200 MG Orally every 6 hrs 1 tablet as needed 6h Active Naproxen 500 mg Orally every 12 hrs 1 tablet as needed 12h Mar, Active Ativan 0.5 MG Orally twice a day 1 tablet as needed 12h Jul, Active Meclizine HCl 25 MG Orally Once a day 1 tablet as needed 24h 17 Sep, 2016 30 day(s) Active ProAir HFA 108 (90 Base) MCG/ACT Inhalation 4 times a day 2 puffs as needed 6h 18 Apr, 2015 Active RESULTS No Results PROCEDURES Procedure Date Ordered Result Body Site [facility] ESTABLISHED PATIENT Mar 11, 2017 INSTRUCTIONS MEDICATIONS ADMINISTERED No Known Medications [...]
--- OUTSIDE RECORDS SUMMARY | 2019-01-20 15:06 | XMS REPORT ---
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 Active 30454031 Problem Type 2 diabetes mellitus with hyperglycemia E11.65 Active [id number] Problem Moderate episode of recurrent major depressive disorder F33.1 Active 801441187 Problem Uncontrolled type 2 diabetes mellitus without complication, without long- term current use of insulin E11.65 Active 939753762 Problem Dementia in other diseases classified elsewhere with behavioral disturbance F02.81 Active 701062586 Problem Alzheimer''s disease with early onset G30.0 Active 1092664 Problem Polyneuropathy G62.9 Active 44096825 Problem Flat foot [pes planus] (acquired), right foot M21.41 Active 86173078 Problem Corns L84 Active 804674197 Problem Exertional dyspnea R06.09 Active 49167079 Problem Anxiety F41.9 Active 94870398 Problem Diabetes E11.9 Active 296873468 Problem Chronic obstructive pulmonary disease, unspecified COPD type J44.9 Active 02856585 Problem Acute exacerbation of chronic obstructive pulmonary disease (COPD) J44.1 Active 434299685 Problem Diabetes type 2, controlled E11.9 Active 46711969 Problem Alzheimers disease with early onset G30.0 Active 4969653 ALLERGIES Substance Reaction Event Type Date Status SulfADIAZINE shortness of breath Drug Allergy Dec, Active Lisinopril hypotension Drug Allergy Dec, Active Cozaar hypotension Drug Allergy Dec, Active Aspirin Unknown Drug Allergy Dec, Active ENCOUNTERS Encounter Location Date Diagnosis [place] [id number] [place] [address] October, [place] [id number] [place] [address] Aug, Alzheimer''s disease with early onset G30.0 ; Dementia in other diseases classified elsewhere with behavioral disturbance F02.81 ; 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 and Type 2 diabetes mellitus with hyperglycemia E11.65 [place] [id number] [place] [address] Jul, [place] [address] [address] Jul, Alzheimer''s disease with early onset G30.0 ; Dementia in other diseases classified elsewhere with behavioral disturbance F02.81 and Uncontrolled type 2 diabetes mellitus without complication, without long-term current use of insulin E11.65 [place] [id number] [place] [address] May, Diabetes type 2, controlled E11.9 ; Bilateral otitis media with effusion H65.93 and Dizziness R42 [facility] [id number] [place] [address] 17 Apr, 2017 Dysuria R30.0 and Acute cystitis with hematuria N30.01 [place] [id number] [place] [address] Apr, Moderate episode of recurrent major depressive disorder F33.1 [facility] [id number] [place] [address] 18 Mar, 2017 Acute cystitis without hematuria N30.00 [place] [id number] [place] [address] 28 Feb, 2017 Uncontrolled type 2 diabetes mellitus without complication, without long-term current use of insulin E11.65 ; Other Alzheimer''s disease G30.8 and Dementia in other diseases classified elsewhere without behavioral disturbance F02.80 [place] [id number] [place] [address] Jan, Diabetes type 2, controlled E11.9 and Alzheimers disease with early onset G30.0 [facility] [place] [address] [address] Dec, Allergic contact dermatitis due to plants, except food L23.7 [facility] [address] [address] Dec, Dysuria R30.0 and Candidiasis of female genitalia B37.[address] [address] Dec, Diabetes E11.9 and Alzheimers disease with early onset G30.0 [facility] [place] [address] [address] Nov, Acute exacerbation of chronic obstructive pulmonary disease (COPD) J44.1 and Vaginal candidiasis B37.3 [place] [address] [address] Nov, Controlled type 2 diabetes mellitus without complication, without long-term current use of insulin E11.9 and Other Alzheimers disease G30.8 [place] [id number] [place] [address] October, OME (otitis media with effusion), bilateral H65.93 ; Dizziness R42 and Diabetes E11.9 [facility] [place] [id number] [place] [address] Sep, Vertigo R42 ; Heart murmur R01.1 and Dysfunction of inner ear, bilateral H83.[address] [address] Aug, Acute suppurative otitis media of both ears without spontaneous rupture of tympanic membranes, recurrence not specified H66.003 [facility] [address] [address] Aug, Vaginal irritation N89.8 and Acute exacerbation of chronic obstructive pulmonary disease (COPD) J44.1 [place] [id number] [place] [address] Jul, Dementia in other diseases classified elsewhere without behavioral disturbance F02.80 [place] [id number] [place] [address] Jul, [address] [address] Jun, Diabetes type 2, controlled E11.9 ; Alzheimers disease with early onset G30.0 and Dementia in other diseases classified elsewhere without behavioral disturbance F02.80 [place] [address] [address] May, Diabetes type 2, controlled E11.9 [facility] [address] [address] May, Vaginal candidiasis B37.3 and Dysuria R30.0 [facility] [address] [address] May, Cutaneous abscess of head [any part, except face] L02.811 ; Cellulitis of head [any part, except face] L03.811 ; COPD exacerbation J44.1 and Wheezing R06.2 [place] [id number] [place] [address] Apr, [address] [address] Apr, Diabetes E11.9 ; Acute upper respiratory infection, unspecified J06.9 and Vagina, candidiasis B37.3 [facility] [address] [place] [id number] [place] [address] Mar, Acute exacerbation of chronic obstructive pulmonary disease (COPD) J44.[address] [address] Mar, Diabetes type 2, controlled E11.9 [facility] [address] [address] Feb, Acute bronchitis, unspecified organism J20.9 [facility] [id number] [place] [address] 08 Feb, 2016 Controlled type 2 diabetes mellitus without complication, without long-term current use of insulin E11.9 [facility] [id number] [place] [address] Jan, Controlled type 2 diabetes mellitus without complication, without long-term current use of insulin E11.9 and Anxiety F41.9 [place] [id number] [place] [address] Dec, [place] [id number] [place] [address] Nov, Diabetes type 2, controlled E11.9 [place] [id number] [place] [address] Nov, Acute pain of left shoulder M25.512 [facility] [id number] [place] [address] October, Cellulitis of face L03.211 [place] [id number] [place] [address] October, Diabetes type 2, controlled E11.9 [place] [id number] [place] [address] October, Diabetes type 2, controlled E11.9 [place] [address] [place] [address] Sep, Generalized anxiety disorder F41.1 ; Depression F32.9 and FH: memory loss Z82.0 [facility] [address] [place] [address] Sep, FH: memory loss Z82.0 ; Major depression, recurrent F33.9 and Anxiety disorder, unspecified F41.9 [facility] [id number] [place] [address] Aug, PTSD (post-traumatic stress disorder) F43.10 ; Generalized anxiety disorder F41.1 and FH: memory loss Z82.0 [facility] [id number] [place] [address] Aug, FH: memory loss Z82.0 ; Depression F32.9 and PTSD (post-traumatic stress disorder) F43.10 [place] [id number] [place] [address] Jul, Major depression, recurrent F33.9 ; Generalized anxiety disorder F41.1 and Alzheimer disease G30.9 [place] [id number] [place] [address] Jul, Diabetes E11.9 and Mood disorder F39 [place] [address] [address] Jul, Dental examination Z01.20 [place] [id number] [place] [address] Apr, Exertional dyspnea R06.09 and Chronic obstructive pulmonary disease, unspecified COPD type J44.9 [facility] [id number] [place] [address] Mar, [place] [id number] [place] [address] Mar, Diabetes E11.9 [facility] [id number] [place] [address] Mar, Diabetes E11.9 ; COPD (chronic obstructive pulmonary disease) J44.9 and Hip pain, right M25.551 [facility] [id number] [place] [address] Dec, [facility] [address] [address] Nov, COPD exacerbation 491.21 and Wheezing 786.07 [facility] [address] [address] October, Acute contact dermatitis 692.9 and Anhedonia 780.99 [facility] [address] [address] October, [facility] [id number] [place] [address] Sep, [facility] [address] [address] Sep, [facility] [id number] [place] [address] Aug, [facility] [id number] [place] [address] Aug, [facility] [id number] [place] [address] Aug, [facility] [address] [address] Aug, [facility] [address] [address] Jul, [facility] [address] [address] Jul, [facility] [address] [address] Jul, [facility] [address] [address] Jul, [facility] [address] [address] Jul, [facility] [address] [address] Jul, [facility] [id number] [place] [address] May, [facility] [place] [facility] [address] [id number] [place] [address] May, [facility] [place] [facility] [address] [id number] [place] [address] May, [facility] [place] [facility] [address] [id number] [place] [address] May, [facility] [place] [facility] [address] [id number] [place] [address] May, [facility] [place] [facility] [address] [id number] [place] [address] May, [facility] [place] [facility] [address] [id number] [place] [address] Apr, [facility] [place] [facility] [address] [id number] [place] [address] Apr, [facility] [place] [facility] [address] [id number] [place] [address] Apr, [facility] [place] [facility] [address] [id number] [place] [address] Apr, [facility] [place] [facility] [address] [facility] [id number] [place] [address] Mar, [facility] [place] [facility] [address] [id number] [place] [address] Mar, [facility] [place] [facility] [address] [id number] [place] [address] Feb, [facility] [place] [facility] [address] [id number] [place] [address] Feb, [facility] [place] [facility] [address] [id number] [place] [address] Jan, [facility] [place] [facility] [address] [id number] [place] [address] Jan, [facility] [place] [facility] [address] [id number] [place] [address] Dec, [facility] [place] [facility] [address] [id number] [place] [address] Dec, [facility] [place] [facility] [address] [id number] [place] [address] October, [facility] [place] [facility] [address] [id number] [place] [address] October, [facility] [place] [facility] [address] [id number] [place] [address] October, [facility] [place] [facility] [address] [id number] [place] [address] October, [facility] [place] [facility] [address] [id number] [place] [address] October, [facility] [place] [facility] [address] [id number] [place] [address] October, [facility] [place] [facility] [address] [id number] [place] [address] Sep, [facility] [place] [facility] [address] [id number] [place] [address] Sep, [facility] [place] [facility] [address] [id number] [place] [address] Sep, [facility] [place] [facility] [address] [id number] [place] [address] Sep, [facility] [place] [facility] [address] [id number] [place] [address] Sep, [facility] [place] [facility] [address] [id number] [place] [address] Sep, [facility] [place] [facility] [address] [id number] [place] [address] Sep, [facility] [place] [facility] [address] [id number] [place] [address] 08 Sep, 2013 [facility] [place] [facility] [address] [id number] [place] [address] 26 Aug, 2013 [facility] [place] [facility] [address] [id number] [place] [address] 14 Aug, 2013 [facility] [place] [facility] [address] [facility] [id number] [place] [address] 14 Aug, 2013 [facility] [place] [facility] [address] [id number] [place] [address] Aug, [facility] [place] [facility] [address] [id number] [place] [address] Aug, [facility] [place] [facility] [address] [facility] [id number] [place] [address] Aug, [facility] [place] [facility] [address] [facility] [id number] [place] [address] 24 Jul, 2013 [facility] [place] [facility] [address] [id number] [place] [address] 24 Jul, 2013 [facility] [place] [facility] [address] [facility] [id number] [place] [address] Jul, [facility] [place] [facility] [address] [facility] [id number] [place] [address] Jul, [facility] [place] [facility] [address] [facility] [id number] [place] [address] May, [facility] [place] [facility] [address] [id number] [place] [address] May, [facility] [place] [facility] [address] [id number] [place] [address] May, [facility] [place] [facility] [address] [facility] [id number] [place] [address] May, [facility] [place] [facility] [address] [facility] [id number] [place] [address] 29 Apr, 2013 [facility] [place] [facility] [address] [id number] [place] [address] Apr, [facility] [place] [facility] [address] [id number] [place] [address] Apr, [facility] [place] [facility] [address] [id number] [place] [address] Apr, [facility] [place] [facility] [address] [id number] [place] [address] Apr, [facility] [place] [facility] [address] [id number] [place] [address] Apr, [facility] [place] [facility] [address] [id number] [place] [address] Apr, [facility] [place] [facility] [address] [id number] [place] [address] Apr, [facility] [place] [facility] [address] [id number] [place] [address] Mar, [facility] [place] [facility] [address] [id number] [place] [address] Dec, [facility] [place] [facility] [address] [id number] [place] [address] Dec, [facility] [place] [facility] [address] [id number] [place] [address] Nov, [facility] [place] [facility] [address] [id number] [place] [address] Nov, [facility] [place] [facility] [address] [id number] [place] [address] Nov, [facility] [place] [facility] [address] [id number] [place] [address] Sep, [facility] [place] [facility] [address] [id number] [place] [address] Aug, [facility] [place] [facility] [address] [id number] [place] [address] Aug, [facility] [place] [facility] [address] [id number] [place] [address] Aug, [facility] [place] [facility] [address] [id number] [place] [address] Aug, [facility] [place] [facility] [address] [facility] [id number] [place] [address] Jul, [facility] [place] [facility] [address] [id number] [place] [address] Jul, [facility] [place] [facility] [address] [id number] [place] [address] May, [facility] [place] [facility] [address] [id number] [place] [address] May, [facility] [place] [facility] [address] [facility] [id number] [place] [address] May, [facility] [place] [facility] [address] [id number] [place] [address] Apr, [facility] [place] [facility] [address] [id number] [place] [address] Apr, [facility] [place] [facility] [address] [facility] [id number] [place] [address] Apr, [facility] [place] [facility] [address] [id number] [place] [address] Apr, [facility] [place] [facility] [address] [id number] [place] [address] Apr, [facility] [place] [facility] [address] [id number] [place] [address] Apr, [facility] [place] [facility] [address] [facility] [id number] [place] [address] Mar, [facility] [place] [facility] [address] [facility] [id number] [place] [address] Mar, [facility] [place] [facility] [address] [id number] [place] [address] 08 Mar, 2012 [facility] [address] [id number] [place] [address] 14 Feb, 2012 [facility] [place] [facility] [address] [id number] [place] [address] 11 Feb, 2012 [facility] [address] [id number] [place] [address] 11 Feb, 2012 [facility] [place] [facility] [address] [id number] [place] [address] 24 Jan, 2012 [facility] [address] [id number] [place] [address] Jan, [facility] [address] [id number] [place] [address] Jan, [facility] [address] [id number] [place] [address] Jan, [facility] [address] [id number] [place] [address] Dec, [facility] [place] [facility] [address] [id number] [place] [address] Dec, [facility] [address] [id number] [place] [address] Nov, [facility] [place] [facility] [address] [id number] [place] [address] Nov, [facility] [address] [id number] [place] [address] October, [facility] [place] [facility] [address] [id number] [place] [address] October, [facility] [place] [facility] [address] [id number] [place] [address] Sep, [facility] [place] [facility] [address] [id number] [place] [address] Aug, [facility] [place] [facility] [address] [id number] [place] [address] Aug, [facility] [place] [facility] [address] [id number] [place] [address] Jul, [facility] [place] [facility] [address] [id number] [place] [address] Jun, [facility] [place] [facility] [address] [id number] [place] [address] Jun, [facility] [place] [facility] [address] [id number] [place] [address] Jun, [facility] [place] [facility] [address] [id number] [place] [address] Jun, [facility] [place] [facility] [address] [id number] [place] [address] May, [facility] [place] [facility] [address] [id number] [place] [address] May, [facility] [place] [facility] [address] [id number] [place] [address] Mar, [facility] [place] [facility] [address] [id number] [place] [address] Mar, [facility] [place] [facility] [address] [id number] [place] [address] Feb, [facility] [place] [facility] [address] [id number], [place] [address] Dec, [facility] [place] [facility] [address] [id number] [place] [address] Aug, [facility] [place] [facility] [address] [id number] [place] [address] 16 Aug, 2010 [facility] [place] [facility] [address] [id number], [place] [address] 07 May, 2010 [facility] [place] [facility] [address] [id number], [place] [address] Jan, [facility] [address] [facility] [id number], [place] [address] Apr, [facility] [address] [facility] [id number], [place] [address] Apr, [facility] [address] [facility] [id number], [place] [address] Jan, [facility] [address] [facility] [id number], [place] [address] Aug, IMMUNIZATIONS No Known Immunizations SOCIAL HISTORY Never Assessed REASON FOR VISIT Diabetes - No problems to report. Needs refills on her medications. - Dee COWAN PLAN OF CARE Activity Details Follow Up 4 Weeks Reason:dm2 VITAL SIGNS Height 64 in 2016-12-25 Weight 166.7 lbs 2016-12-25 Temperature 97.8 degrees Fahrenheit 2016-12-25 Heart Rate 84 bpm 2016-12-25 Respiratory Rate 16 2016-12-25 BMI 28.61 kg/m2 2016-12-25 Blood pressure systolic 112 mmHg 2016-12-25 Blood pressure diastolic 82 mmHg 2016-12-25 MEDICATIONS Medication Instructions Dosage Frequency Start Date [...] 1 tablet as needed 12h Mar, Active RESULTS No Results PROCEDURES Procedure Date Ordered Result Body Site [facility] VISIT ESTABLISHED PATIENT December 25, 2016 INSTRUCTIONS MEDICATIONS ADMINISTERED No Known Medications [...]
--- OUTSIDE RECORDS SUMMARY | 2019-01-20 15:07 | XMS REPORT ---
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 Active 10800996 Problem Type 2 diabetes mellitus with hyperglycemia E11.65 Active [id number] Problem Moderate episode of recurrent major depressive disorder F33.1 Active 889973015 Problem Uncontrolled type 2 diabetes mellitus without complication, without long- term current use of insulin E11.65 Active 984314840 Problem Dementia in other diseases classified elsewhere with behavioral disturbance F02.81 Active 125803254 Problem Alzheimer''s disease with early onset G30.0 Active 4306748 Problem Polyneuropathy G62.9 Active 32092107 Problem Flat foot [pes planus] (acquired), right foot M21.41 Active 26672182 Problem Corns L84 Active 557977492 Problem Exertional dyspnea R06.09 Active 38594469 Problem Anxiety F41.9 Active 36653636 Problem Diabetes E11.9 Active 766823622 Problem Chronic obstructive pulmonary disease, unspecified COPD type J44.9 Active 03808608 Problem Acute exacerbation of chronic obstructive pulmonary disease (COPD) J44.1 Active 898318741 Problem Diabetes type 2, controlled E11.9 Active 74269465 Problem Alzheimers disease with early onset G30.0 Active 9096926 ALLERGIES Substance Reaction Event Type Date Status SulfADIAZINE shortness of breath Drug Allergy Jan, Active Lisinopril hypotension Drug Allergy Jan, Active Cozaar hypotension Drug Allergy Jan, Active Aspirin Unknown Drug Allergy Jan, Active ENCOUNTERS Encounter Location Date Diagnosis [place] [id number] [place] [address] October, [place] [id number] [place] [address] Sep, [place] [id number] [place] [address] Sep, Dysfunction of both eustachian tubes H69.83 [place] [address] [address] Aug, Alzheimer''s disease with early onset G30.0 ; Dementia in other diseases classified elsewhere with behavioral disturbance F02.81 ; 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 and Type 2 diabetes mellitus with hyperglycemia E11.65 [place] [id number] [place] [address] Jul, [place] [id number] [place] [address] Jul, Alzheimer''s disease with early onset G30.0 ; Dementia in other diseases classified elsewhere with behavioral disturbance F02.81 and Uncontrolled type 2 diabetes mellitus without complication, without long-term current use of insulin E11.65 [place] [id number] [place] [address] May, Diabetes type 2, controlled E11.9 ; Bilateral otitis media with effusion H65.93 and Dizziness R42 [facility] [id number] [place] [address] Apr, Dysuria R30.0 and Acute cystitis with hematuria N30.01 [place] [address] [address] Apr, Moderate episode of recurrent major depressive disorder F33.1 [facility] [id number] [place] [address] Mar, Acute cystitis without hematuria N30.00 [place] [id number] [place] [address] Feb, Uncontrolled type 2 diabetes mellitus without complication, without long-term current use of insulin E11.65 ; Other Alzheimer''s disease G30.8 and Dementia in other diseases classified elsewhere without behavioral disturbance F02.[address] [address] Jan, Diabetes type 2, controlled E11.9 and Alzheimers disease with early onset G30.0 [facility] [address] [address] Dec, Allergic contact dermatitis due to plants, except food L23.7 [facility] [address] [address] Dec, Dysuria R30.0 and Candidiasis of female genitalia B37.[address] [address] Dec, Diabetes E11.9 and Alzheimers disease with early onset G30.0 [facility] [address] [address] Nov, Acute exacerbation of chronic obstructive pulmonary disease (COPD) J44.1 and Vaginal candidiasis B37.[address] [address] Nov, Controlled type 2 diabetes mellitus without complication, without long-term current use of insulin E11.9 and Other Alzheimers disease G30.8 [place] [id number] [place] [address] October, OME (otitis media with effusion), bilateral H65.93 ; Dizziness R42 and Diabetes E11.9 [facility] [address] [address] Sep, Vertigo R42 ; Heart murmur R01.1 and Dysfunction of inner ear, bilateral H83.[id number] [place] [address] Aug, Acute suppurative otitis media of both ears without spontaneous rupture of tympanic membranes, recurrence not specified H66.003 [facility] [id number] [place] [address] Aug, Vaginal irritation N89.8 and Acute exacerbation of chronic obstructive pulmonary disease (COPD) J44.1 [place] [address] [address] Jul, Dementia in other diseases classified elsewhere without behavioral disturbance F02.80 [place] [address] [address] Jul, [place] [address] [address] Jun, Diabetes type 2, controlled E11.9 ; Alzheimers disease with early onset G30.0 and Dementia in other diseases classified elsewhere without behavioral disturbance F02.80 [place] [id number] [place] [address] May, Diabetes type 2, controlled E11.9 [facility] [id number] [place] [address] May, Vaginal candidiasis B37.3 and Dysuria R30.0 [facility] [address] [address] 05 May, 2016 Cutaneous abscess of head [any part, except face] L02.811 ; Cellulitis of head [any part, except face] L03.811 ; COPD exacerbation J44.1 and Wheezing R06.[address] [address] Apr, [address] [address] Apr, Diabetes E11.9 ; Acute upper respiratory infection, unspecified J06.9 and Vagina, candidiasis B37.3 [facility] [id number] [place] [address] Mar, Acute exacerbation of chronic obstructive pulmonary disease (COPD) J44.1 [facility] [id number] [place] [address] 07 Mar, 2016 Diabetes type 2, controlled E11.9 [facility] [id number] [place] [address] Feb, Acute bronchitis, unspecified organism J20.9 [facility] [id number] [place] [address] Feb, Controlled type 2 diabetes mellitus without complication, without long-term current use of insulin E11.9 [place] [id number] [place] [address] Jan, Controlled type 2 diabetes mellitus without complication, without long-term current use of insulin E11.9 and Anxiety F41.9 [facility] [id number] [place] [address] Dec, [place] [id number] [place] [address] Nov, Diabetes type 2, controlled E11.9 [facility] [id number] [place] [address] Nov, Acute pain of left shoulder M25.512 [facility] [id number] [place] [address] October, Cellulitis of face L03.211 [facility] [id number] [place] [address] October, Diabetes type 2, controlled E11.9 [facility] [id number] [place] [address] October, Diabetes type 2, controlled E11.9 [facility] [id number] [place] [address] Sep, Generalized anxiety disorder F41.1 ; Depression F32.9 and FH: memory loss Z82.0 [place] [id number] [place] [address] Sep, FH: memory loss Z82.0 ; Major depression, recurrent F33.9 and Anxiety disorder, unspecified F41.9 [place] [address] [address] Aug, PTSD (post-traumatic stress disorder) F43.10 ; Generalized anxiety disorder F41.1 and FH: memory loss Z82.0 [place] [address] [address] Aug, FH: memory loss Z82.0 ; Depression F32.9 and PTSD (post-traumatic stress disorder) F43.10 [place] [address] [address] Jul, Major depression, recurrent F33.9 ; Generalized anxiety disorder F41.1 and Alzheimer disease G30.9 [place] [id number] [place] [address] Jul, Diabetes E11.9 and Mood disorder F39 [place] [id number] [place] [address] Jul, Dental examination Z01.20 [place] [id number] [place] [address] Apr, Exertional dyspnea R06.09 and Chronic obstructive pulmonary disease, unspecified COPD type J44.9 [place] [id number] [place] [address] Mar, [place] [address] [address] Mar, Diabetes E11.9 [place] [id number] [place] [address] Mar, Diabetes E11.9 ; COPD (chronic obstructive pulmonary disease) J44.9 and Hip pain, right M25.551 [facility] [id number] [place] [address] Dec, [facility] [id number] [place] [address] Nov, COPD exacerbation 491.21 and Wheezing 786.07 [facility] [address] [address] October, Acute contact dermatitis 692.9 and Anhedonia 780.99 [facility] [id number] [place] [address] October, [facility] [address] [address] Sep, [facility] [id number] [place] [address] Sep, [facility] [id number] [place] [address] Aug, [facility] [id number] [place] [address] Aug, [facility] [id number] [place] [address] Aug, [facility] [id number] [place] [address] Aug, [facility] [id number] [place] [address] Jul, [facility] [id number] [place] [address] Jul, [facility] [id number] [place] [address] Jul, [facility] [id number] [place] [address] Jul, [facility] [place] [facility] [address] [id number] [place] [address] Jul, 2014 [facility] [place] [facility] [address] [id number] [place] [address] Jul, [facility] [place] [facility] [address] [id number] [place] [address] May, [facility] [place] [facility] [address] [id number] [place] [address] May, [facility] [place] [facility] [address] [id number] [place] [address] May, [facility] [place] [facility] [address] [id number] [place] [address] May, [facility] [place] [facility] [address] [id number] [place] [address] May, [facility] [place] [facility] [address] [id number] [place] [address] May, [facility] [place] [facility] [address] [id number] [place] [address] Apr, [facility] [place] [facility] [address] [id number] [place] [address] Apr, [facility] [place] [facility] [address] [id number] [place] [address] Apr, [facility] [place] [facility] [address] [id number] [place] [address] Apr, [facility] [place] [facility] [address] [id number] [place] [address] Mar, [facility] [place] [facility] [address] [id number] [place] [address] Mar, [facility] [place] [facility] [address] [id number] [place] [address] 08 Feb, 2014 [facility] [place] [facility] [address] [id number] [place] [address] Feb, [facility] [place] [facility] [address] [id number] [place] [address] Jan, [facility] [place] [facility] [address] [id number] [place] [address] Jan, [facility] [place] [facility] [address] [id number] [place] [address] Dec, [facility] [place] [facility] [address] [id number] [place] [address] Dec, [facility] [place] [facility] [address] [id number] [place] [address] October, [facility] [place] [facility] [address] [id number] [place] [address] October, [facility] [place] [facility] [address] [id number] [place] [address] October, [facility] [place] [facility] [address] [id number] [place] [address] October, [facility] [place] [facility] [address] [id number] [place] [address] October, [facility] [place] [facility] [address] [id number] [place] [address] October, [facility] [place] [facility] [address] [id number] [place] [address] Sep, [facility] [place] [facility] [address] [id number] [place] [address] Sep, [facility] [place] [facility] [address] [id number] [place] [address] Sep, [facility] [place] [facility] [address] [id number] [place] [address] Sep, [facility] [place] [facility] [address] [id number] [place] [address] Sep, [facility] [place] [facility] [address] [id number] [place] [address] 10 Sep, 2013 [facility] [address] [id number] [place] [address] 08 Sep, 2013 [facility] [place] [facility] [address] [id number] [place] [address] 08 Sep, 2013 [facility] [place] [facility] [address] [id number] [place] [address] 26 Aug, 2013 [facility] [place] [facility] [address] [id number] [place] [address] 14 Aug, 2013 [facility] [place] [facility] [address] [id number] [place] [address] 14 Aug, 2013 [facility] [place] [facility] [address] [id number] [place] [address] Aug, [facility] [place] [facility] [address] [id number] [place] [address] Aug, [facility] [place] [facility] [address] [id number] [place] [address] 07 Aug, 2013 [facility] [place] [facility] [address] [id number] [place] [address] 24 Jul, 2013 [facility] [place] [facility] [address] [id number] [place] [address] Jul, [facility] [place] [facility] [address] [id number] [place] [address] Jul, [facility] [place] [facility] [address] [id number] [place] [address] Jul, [facility] [place] [facility] [address] [id number] [place] [address] May, [facility] [place] [facility] [address] [id number] [place] [address] May, [facility] [place] [facility] [address] [id number] [place] [address] May, [facility] [place] [facility] [address] [id number] [place] [address] May, [facility] [place] [facility] [address] [id number] [place] [address] Apr, [facility] [place] [facility] [address] [facility] [id number] [place] [address] Apr, [facility] [place] [facility] [address] [id number] [place] [address] Apr, [facility] [place] [facility] [address] [id number] [place] [address] Apr, [facility] [place] [facility] [address] [id number] [place] [address] Apr, [facility] [place] [facility] [address] [id number] [place] [address] Apr, [facility] [place] [facility] [address] [id number], [place] [address] Apr, [facility] [place] [facility] [address] [id number] [place] [address] Apr, [facility] [place] [facility] [address] [facility] [id number], [place] [address] Mar, [facility] [place] [facility] [address] [id number], [place] [address] Dec, [facility] [place] [facility] [address] [id number], [place] [address] Dec, [facility] [place] [facility] [address] [id number], [place] [address] Nov, [facility] [place] [facility] [address] [id number], [place] [address] Nov, [facility] [place] [facility] [address] [facility] [id number], [place] [address] Nov, [facility] [place] [facility] [address] [id number] [place] [address] Sep, [facility] [address] [id number] [place] [address] Aug, [facility] [place] [facility] [address] [id number] [place] [address] Aug, [facility] [address] [id number] [place] [address] 08 Aug, 2012 [facility] [place] [facility] [address] [id number] [place] [address] Aug, [facility] [address] [id number] [place] [address] Jul, [facility] [place] [facility] [address] [id number] [place] [address] Jul, [facility] [address] [id number] [place] [address] May, [facility] [address] [id number] [place] [address] May, [facility] [place] [facility] [address] [id number] [place] [address] May, [facility] [place] [facility] [address] [id number] [place] [address] Apr, [facility] [place] [facility] [address] [id number] [place] [address] Apr, [facility] [place] [facility] [address] [id number] [place] [address] Apr, [facility] [place] [facility] [address] [id number] [place] [address] Apr, [facility] [place] [facility] [address] [id number] [place] [address] Apr, [facility] [place] [facility] [address] [id number] [place] [address] Apr, [facility] [place] [facility] [address] [id number] [place] [address] Mar, [facility] [place] [facility] [address] [id number] [place] [address] Mar, [facility] [place] [facility] [address] [id number] [place] [address] Mar, [facility] [place] [facility] [address] [id number] [place] [address] 14 Feb, 2012 [facility] [place] [facility] [address] [id number] [place] [address] Feb, [facility] [place] [facility] [address] [id number] [place] [address] Feb, [facility] [place] [facility] [address] [id number] [place] [address] Jan, [facility] [place] [facility] [address] [id number] [place] [address] Jan, [facility] [place] [facility] [address] [id number] [place] [address] Jan, [facility] [place] [facility] [address] [id number] [place] [address] Jan, [facility] [place] [facility] [address] [id number] [place] [address] Dec, [facility] [place] [facility] [address] [id number], [place] [address] Dec, [facility] [place] [facility] [address] [id number] [place] [address] Nov, [facility] [place] [facility] [address] [id number] [place] [address] Nov, [facility] [place] [facility] [address] [id number] [place] [address] October, [facility] [place] [facility] [address] [id number], [place] [address] October, [facility] [address] [id number] [place] [address] Sep, [facility] [place] [facility] [address] [id number] [place] [address] Aug, [facility] [place] [facility] [address] [facility] [id number] [place] [address] Aug, [facility] [place] [facility] [address] [id number] [place] [address] Jul, [facility] [place] [facility] [address] [id number] [place] [address] Jun, [facility] [place] [facility] [address] [id number] [place] [address] Jun, [facility] [place] [facility] [address] [facility] [id number] [place] [address] Jun, [facility] [place] [facility] [address] [facility] [id number] [place] [address] Jun, [facility] [place] [facility] [address] [facility] [id number] [place] [address] May, [facility] [place] [facility] [address] [facility] [id number] [place] [address] May, [facility] [place] [facility] [address] [facility] [id number] [address] Mar, [facility] [place] [facility] [address] [id number] [place] [address] Mar, [facility] [place] [facility] [address] [id number] [place] [address] Feb, [facility] [place] [facility] [address] [facility] [id number] [place] [address] Dec, [facility] [place] [facility] [address] [facility] [id number] [place] [address] Aug, [facility] [place] [facility] [address] [id number] [address] 16 Aug, 2010 [facility] [address] [id number], [place] [address] May, [facility] [id number], [place] [address] Jan, [facility] [id number], [place] [address] Apr, [facility] [id number], [place] [address] Apr, [facility] [id number], [place] [address] Jan, [facility] [id number], [place] [address] Aug, IMMUNIZATIONS No Known Immunizations SOCIAL HISTORY Never Assessed REASON FOR VISIT Diabetes -- lacie arango PLAN OF CARE Activity Details Follow Up 4 Weeks Reason:alzheimer's VITAL SIGNS Height 64 in 2017-01-29 Weight 162.6 lbs 2017-01-29 Temperature 97.0 degrees Fahrenheit 2017-01-29 Heart Rate 80 bpm 2017-01-29 Respiratory Rate 20 2017-01-29 BMI 27.91 kg/m2 2017-01-29 Blood pressure systolic 126 mmHg 2017-01-29 Blood pressure diastolic 70 mmHg 2017-01-29 MEDICATIONS Medication Instructions Dosage Frequency Start Date End Date Duration Status Namzaric 7 & 14 & 21 &28 -10 MG as directed Jan, Active Albuterol Sulfate (2.5 MG/3ML) 0.083% Inhalation [...] Ordered Result Body Site GLYCATED HEMOGLOBIN TEST Jan 29, 2017 [facility] VISIT ESTABLISHED PATIENT Jan 29, 2017 INSTRUCTIONS MEDICATIONS ADMINISTERED No Known Medications [...]
--- OUTSIDE RECORDS SUMMARY | 2019-01-20 15:07 | XMS REPORT ---
Author Author PK ROBB Organization [facility] Address [address] [place] [address] Care Team Providers Care Supervisor Quality Control Name Role Phone LENARD ROBBICE Unavailable PROBLEMS Type Condition ICD9-CM Code AVL77-IU Code Onset Dates Condition Status SNOMED Code Problem Flat foot [pes planus] (acquired), right foot M21.41 Active 56494114 Problem Anxiety F41.9 Active 18609559 Problem Diabetes type 2, controlled E11.9 Active 42132758 Problem Chronic obstructive pulmonary disease, unspecified COPD type J44.9 Active 08484239 Problem Corns L84 Active 467430452 Problem Exertional dyspnea R06.09 Active 25725442 Problem Polyneuropathy G62.9 Active 03942970 Problem Other Alzheimers disease G30.8 Active 73133983 Problem Controlled type 2 diabetes mellitus without complication, without long- term current use of insulin E11.9 Active 660559626 Problem Acute exacerbation of chronic obstructive pulmonary disease (COPD) J44.1 Active 698195558 Problem Diabetes E11.9 Active 144256426 Problem Alzheimers disease with early onset G30.0 Active 4821840 Problem Dementia in other diseases classified elsewhere without behavioral disturbance F02.80 Active 966330585 ALLERGIES Substance Reaction Event Type Date Status Sulfur swelling Drug Allergy May, Active Lisinopril hypotension Drug Allergy May, Active Cozaar hypotension Drug Allergy May, Active Bactrim Unknown Drug Allergy May, Active Aspirin Unknown Drug Allergy May, Active SOCIAL HISTORY Never Assessed PLAN OF CARE Activity Details Follow Up prn Reason: VITAL SIGNS Height 64 in 2016-06-10 Weight 179 lbs 2016-06-10 Temperature 97.8 degrees Fahrenheit 2016-06-10 Heart Rate 86 bpm 2016-06-10 Respiratory Rate 18 2016-06-10 BMI 30.72 kg/m2 2016-06-10 Blood pressure systolic 142 mmHg 2016-06-10 Blood pressure diastolic 84 mmHg 2016-06-10 MEDICATIONS Medication Instructions Dosage Frequency Start Date End Date Duration Status Sertraline HCl 100 MG Orally Once a day 1 tablet 24h Mar, Active Fluconazole 150 MG Orally once 1 tablet may repeat in 72 hours May, May, 1 days Active Nystatin 116954 UNIT/GM Externally Twice a day 1 application to affected area 12h May, Jun, 10 days Active MetFORMIN HCl ER 500 MG Orally 2 times a day 1 tablet with evening meal 12h Mar, 30 day(s) Active Ibuprofen 200 MG Orally every 6 hrs 1 tablet as needed 6h Active Ativan 0.5 MG Orally twice a day 1 tablet as needed 12h Jul, Active ProAir HFA 108 (90 Base) MCG/ACT Inhalation 4 times a day 2 puffs as needed 6h Apr, Active Albuterol Sulfate (2.5 MG/3ML) 0.083% Inhalation Three times a day. DX: J44.9 3 ml Apr, Active RESULTS Name Result Date Reference Range UA LONG DIP (IN HOUSE) 2016-06-10 Lot # [id number] Exp date Clarity Cloudy Color Yellow Odor Yes GLU 3+ AMBER Negative KET Negative SG 1.010 BLO Trace-Intact pH 5.5 Protein Negative URO 0.2 NIT Negative LOVE 1+ Lot # [id number] Exp date CULTURE, URINE 2016-06-10 Urine Culture, Routine Final report Result 1 No growth PROCEDURES Procedure Date Ordered Result Body Site URINALYSIS, AUTO, W/O SCOPE Jun 10, 2016 [facility] VISIT ESTABLISHED PATIENT Jun 10, 2016 LAB NOT BILLED BY [facility] Jun 10, 2016 IMMUNIZATIONS No Known Immunizations MEDICAL (GENERAL) [...]
--- OUTSIDE RECORDS SUMMARY | 2019-01-20 15:07 | XMS REPORT ---
Author Author HERMILO VERDUGO Organization [facility] Address [address] [place] [address] Care Team Providers Care Shipping Room Helper Name Role Phone HERMILO VERDUGO Unavailable PROBLEMS Type Condition ICD9-CM Code GOD35-QZ Code Onset Dates Condition Status SNOMED Code Problem Exertional dyspnea R06.09 Active 72471374 Problem Anxiety F41.9 Active 91636620 Problem Diabetes type 2, controlled E11.9 Active 49728706 Problem Chronic obstructive pulmonary disease, unspecified COPD type J44.9 Active 16372160 Problem Flat foot [pes planus] (acquired), right foot M21.41 Active 44441375 Problem Corns L84 Active 754047953 Problem Polyneuropathy G62.9 Active 49830405 Problem Controlled type 2 diabetes mellitus without complication, without long- term current use of insulin E11.9 Active 726076185 Problem Other Alzheimers disease G30.8 Active 97998646 Problem Acute exacerbation of chronic obstructive pulmonary disease (COPD) J44.1 Active 930300963 Problem Diabetes E11.9 Active 998513442 Problem Alzheimers disease with early onset G30.0 Active 9709469 Problem Dementia in 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 chckup VITAL SIGNS Height 64 in 2016-06-11 Weight 176.6 lbs 2016-06-11 Temperature 98.0 degrees Fahrenheit 2016-06-11 Heart Rate 76 bpm 2016-06-11 Respiratory Rate 20 2016-06-11 BMI 30.31 kg/m2 2016-06-11 Blood pressure systolic 148 mmHg 2016-06-11 Blood pressure diastolic 76 mmHg 2016-06-11 MEDICATIONS Medication Instructions Dosage Frequency Start Date End Date Duration Status Albuterol Sulfate (2.5 MG/3ML) 0.083% Inhalation Three times a day. DX: J44.9 3 ml Apr, Active MetFORMIN HCl ER 500 MG Orally 2 times a day 1 tablet with evening meal 12h Mar, 30 day(s) Active Sertraline HCl 100 MG Orally Once a day 1 tablet 24h Mar, Active Nystatin 291852 UNIT/GM Externally Twice a day 1 application to affected area 12h May, Jun, 10 days Active Ibuprofen 200 MG Orally every 6 hrs 1 tablet as needed 6h Active Ativan 0.5 MG Orally twice a day 1 tablet as needed 12h Jul, Active Fluconazole 150 MG Orally once 1 tablet may repeat in 72 hours May, May, 1 days Active ProAir HFA 108 (90 Base) MCG/ACT Inhalation 4 times a day 2 puffs as needed 6h Apr, Active RESULTS Name Result Date Reference Range MICROALBUMIN, URINE (IN HOUSE) 2016-06-11 MICROALBUMIN Abnormal Lot # [id number] Exp date 04/2017 Clarity clear Color yellow ALB 10 mg/L CRE 50 mg/dL A:C (IN HOUSE) 30-300 mg/g* Control Control Lot # Exp date MICROALBUMIN/CREATININE RATIO, URINE 2016-06-11 Creatinine, Urine 37.2 Not Estab. Microalbumin, Urine <3.0 Not Estab. Microalb/Creat Ratio <8.1 0.0-30.0 PROCEDURES Procedure Date Ordered Related Diagnosis Body Site MICROALBUMIN, SEMIQUANT Jun 11, 2016 [facility] Jun 11, 2016 Office Visit, Est Pt., Level 3 Jun 11, 2016 [facility] VISIT ESTABLISHED PATIENT Jun 11, 2016 IMMUNIZATIONS No Known Immunizations
--- OUTSIDE RECORDS SUMMARY | 2019-01-20 15:07 | XMS REPORT ---
Author HERMILO Muhammad [facility] eClinicalWorks Address Unknown Phone Unavailable Care Team Providers Care Geotechnical Intern Name Role Phone HERMILO VERDUGO CP Unavailable [...] disease, unspecified COPD type J44.9 Active Assessment Diabetes type 2, controlled E11.9 Active Problem Corns L84 Active Problem Flat foot [pes planus] (acquired), right foot M21.41 Active Medications Medication Code System Code Instructions Start Date End Date Status Dosage Albuterol Sulfate [facility] [address]-74 (2.5 MG/3ML) 0.083% Inhalation Three times a day. DX: J44.9 May 01, 2015 3 ml ProAir HFA [facility] [address]-43 108 (90 Base) MCG/ACT Inhalation 4 times a day May 01, 2015 2 puffs as needed Ativan [facility] [address]-95 0.5 MG Orally twice a day Aug 12, 2015 1 tablet as needed MetFORMIN HCl ER [facility] [address]-70 500 MG Orally 2 times a day Mar 18, 2015 1 tablet with evening meal Sertraline HCl [facility] [address]-74 100 MG Orally Once a day Mar 18, 2015 1 tablet Ibuprofen [facility] [address]-86 200 MG Orally every 6 hrs 1 tablet as needed Procedures Procedure Coding System Code Date [facility] VISIT ESTABLISHED PATIENT CPT-4 G0467 Mar 20, 2016 Office Visit, Est Pt., Level 3 CPT-4 32657 Mar 20, 2016 GLYCATED HEMOGLOBIN TEST CPT-4 13467 Mar 20, 2016 [facility] CPT-4 NOBLL Mar 20, 2016 VENIPUNCT, ROUTINE* CPT-4 83170 Mar 20, 2016 Vital Signs Date/Time: Mar 20, 2016 Cardiac Monitoring Heart Rate 60 bpm Weight 174 lbs Height 64 in BMI 29.86 Index Blood Pressure Diastolic 80 mmHg Blood Pressure Systolic 136 mmHg Results Name Result Date Reference Range Unit Abnormality Flag CBC ----Lymphs 42 72893211 % ----Neutrophils 43 13911993 % ----Baso (Absolute) 0.0 76375408 0.0-0.2 x10E3/uL ----Hemoglobin 13.3 98819170 11.1-15.9 g/dL ----Eos (Absolute) 0.7 67242029 0.0-0.4 x10E3/uL H ----Hematocrit 41.4 91208669 34.0-46.6 % ----Monocytes(Absolute) 0.7 65709844 0.1-0.9 x10E3/uL ----MCV 87 81106485 79-97 fL ----Lymphs (Absolute) 3.9 72951512 0.7-3.1 x10E3/uL H ----MCH 28.1 99008313 26.6-33.0 pg ----Neutrophils (Absolute) 3.9 06689049 1.4-7.0 x10E3/uL ----MCHC 32.1 21412374 31.5-35.7 g/dL ----Immature Granulocytes 0 41273941 % ----Basos 0 88154601 % ----RDW 14.1 57059460 12.3-15.4 % ----Immature Grans (Abs) 0.0 07928145 0.0-0.1 x10E3/uL ----WBC 9.3 45359697 3.4-10.8 x10E3/uL ----Platelets 424 19242643 150-379 x10E3/uL H ----Eos 7 02330370 % ----RBC 4.74 77136494 3.77-5.28 x10E6/uL ----Monocytes 8 71360171 % LIPID PANEL ----LDL Cholesterol Calc 145 17752438 0-99 mg/dL H ----VLDL Cholesterol Sanket 52 71873343 5-40 mg/dL H ----Cholesterol, Total 250 20160320 100-199 mg/dL H ----HDL Cholesterol 53 36172632 >39 mg/dL ----Triglycerides 260 48051186 0-149 mg/dL H A1C (IN HOUSE) ----A1C IN HOUSE 8.8 35100302 4.3 - 5.6 % ----Previous A1c 9.6 20160320 ----Lot 0630 [id number] ----Exp date 20160320 ROUTINE VENIPUNCTURE CMP ----Potassium, Serum 4.5 20160320 3.5-5.2 mmol/L ----Sodium, Serum 140 75660553 134-144 mmol/L ----BUN/Creatinine Ratio 7 20160320 11-26 L ----eGFR If Africn Am 77 62288371 >59 mL/min/1.73 ----eGFR If NonAfricn Am 66 01741659 >59 mL/min/1.73 ----Creatinine, Serum 0.90 61127574 0.57-1.00 mg/dL ----BUN 6 20160320 8-27 mg/dL L ----Glucose, Serum 193 44834582 65-99 mg/dL H ----AST (SGOT) 19 20160320 0-40 IU/L ----Globulin, Total 2.9 23599039 1.5-4.5 g/dL ----ALT (SGPT) 14 20160320 0-32 IU/L ----A/G Ratio 1.5 31765566 1.1-2.5 ----Bilirubin, Total 0.7 27980404 0.0-1.2 mg/dL ----Alkaline Phosphatase, S 97 20160320 39-117 IU/L ----Carbon Dioxide, Total 25 20960158 18-29 mmol/L ----Calcium, Serum 9.3 76144915 8.7-10.3 mg/dL ----Protein, Total, Serum 7.2 55006272 6.0-8.5 g/dL ----Albumin, Serum 4.3 69959913 3.6-4.8 g/dL ----Chloride, Serum 100 85255512 97-108 mmol/L Summary Purpose eClinicalWorks Submission
--- OUTSIDE RECORDS SUMMARY | 2019-01-20 15:08 | XMS REPORT ---
Author HERMILO Muhammad [facility] eClinicalWorks Address Unknown Phone Unavailable Care Team Providers Care Steam Brush Operator Name Role Phone HERMILO VERDUGO CP [...] Problem Routine gynecological examination V72.31 Active Assessment Chronic obstructive pulmonary disease, unspecified COPD type J44.9 Active Assessment Exertional dyspnea R06.09 Active Problem Polyneuropathy in diabetes 357.2 Active Problem Corns and callosities 700 Active Problem Diabetes E11.9 Active Problem Unspecified renal failure 586 Active Problem Postmenopausal atrophic vaginitis 627.3 Active Problem Flat foot 734 Active Problem Chronic airway obstruction, not elsewhere classified 496 Active Medications Medication Code System Code Instructions Start Date End Date Status Dosage Symbicort [facility] [address]-01 160-4.5 MCG/ACT Inhalation Twice a day December 11, 2014 2 puffs Albuterol Sulfate [facility] [address]-93 (2.5 MG/3ML) 0.083% Inhalation Three times a day May 01, 2015 3 ml Naproxen [facility] [address]-14 500 MG Orally every 12 hrs Mar 18, 2015 1 tablet as needed MetFORMIN HCl ER [facility] [address]-44 500 MG Orally 2 times a day Mar 18, 2015 1 tablet with evening meal Sertraline HCl [facility] [address]-15 100 MG Orally Once a day Mar 18, 2015 1 tablet ProAir HFA [facility] [address]-22 108 (90 Base) MCG/ACT Inhalation 4 times a day May 01, 2015 2 puffs as needed Procedures Procedure Coding System Code Date Office Visit, Est Pt., Level 3 CPT-4 77438 May 01, 2015 [facility] VISIT ESTABLISHED PATIENT CPT-4 G0467 May 01, 2015 Vital Signs Date/Time: May 01, 2015 Temperature 97.9 F Weight 177.4 lbs Height 64 in BMI 30.45 Index Blood Pressure Diastolic 95 mmHg Blood Pressure Systolic 160 mmHg Cardiac Monitoring Heart Rate 92 bpm Results No Known Results Summary Purpose eClinicalWorks Submission
--- OUTSIDE RECORDS SUMMARY | 2019-01-20 15:09 | XMS REPORT | Continuity Of Care Document ---
Author Author [facility] Organization [facility] Address [address] [place] [address] Phone Care Team Providers Care Demonstrator Sewing Techniques Name Role Phone UNASSIGNED, ED PHYSICIAN Unavailable Unavailable KATHERINE ROOT, ADAM Platt AT Results Lab Results Visit/Account #[id number] (June 07, 2015 9:00am - June 07, 2015 10:03am) Test Result Date/Time 08122-8: COMPLETE BLOOD COUNT WITH DIFF WHITE BLOOD COUNT(4.0-11.0 10E3/UL) 10.0 10E3/UL June 07, 2015 9:00am RED BLOOD COUNT(4.00-5.20 10E6/UL) 4.67 10E6/UL June 07, 2015 9:00am HEMOGLOBIN(12.0-16.0 G/DL) 13.1 G/DL June 07, 2015 9:00am HEMATOCRIT(36.0-46.0 %) 40.2 % June 07, 2015 9:00am MEAN CORPUSCULAR VOLUME(82.0-100.0 FL) 86.1 FL June 07, 2015 9:00am 59455-1: MEAN CORPUSCULAR HEMOGLOBIN(26.0-34.0 PG) 28.1 PG June 07, 2015 9:00am MEAN CORPUSCULAR HGB CONC(31.5-36.5 G/DL) 32.6 G/DL June 07, 2015 9:00am RED CELL DISTRIBUTION WIDTH(11.5-14.5 %) 13.7 % June 07, 2015 9:00am 777-3: PLATELET COUNT(150-450 10E3/UL) 408 10E3/UL June 07, 2015 9:00am MEAN PLATELET VOLUME(8.2-12.4 FL) 10.3 FL June 07, 2015 9:00am 770-8: NEUTROPHILS % (AUTO)(40-70 %) 45 % June 07, 2015 9:00am LYMPHOCYTES % (AUTO)(15-45 %) 37 % June 07, 2015 9:00am 5905-5: MONOCYTES % (AUTO)(2-10 %) 9 % June 07, 2015 9:00am 713-8: EOSINOPHILS % (AUTO)(0-6 %) 8 % June 07, 2015 9:00am 706-2: BASOPHILS % (AUTO)(0-1 %) 1 % June 07, 2015 9:00am 75121-2: IMMATURE GRANS % (AUTO)(0-0 %) 0 % June 07, 2015 9:00am NUCLEATED RBCS (AUTO)(0-0 %) 0 % June 07, 2015 9:00am 751-8: NEUTROPHILS # (AUTO)(2.5-7.5 10E3/UL) 4.5 10E3/UL June 07, 2015 9:00am 77722-5: LYMPHOCYTES # (AUTO)(1.0-4.0 10E3/UL) 3.7 10E3/UL June 07, 2015 9:00am 742-7: MONOCYTES # (AUTO)(0.2-0.8 10E3/UL) 0.9 10E3/UL June 07, 2015 9:00am 711-2: EOSINOPHILS # (AUTO)(0.0-0.4 10E3/UL) 0.8 10E3/UL June 07, 2015 9:00am 704-7: BASOPHILS # (AUTO)(0.0-0.2 10E3/UL) 0.1 10E3/UL June 07, 2015 9:00am IMMATURE GRANS # (AUTO)(0.0-0.0 10E3/UL) 0.0 10E3/UL June 07, 2015 9:00am DIFF TYPE AUTOMATED June 07, 2015 9:00am 28626-0: COMPLETE METABOLIC PROFILE GLUCOSE(70-110 MG/DL) 174 MG/DL June 07, 2015 9:00am BLOOD UREA NITROGEN(6-20 MG/DL) 14 MG/DL June 07, 2015 9:00am CREATININE(0.50-1.20 MG/DL) 0.87 MG/DL June 07, 2015 9:00am 76761-0: EST GLOMERULAR FILTRATION RATE(Greater than or equal to 60) Greater than or equal to 60 Result Comments: If the patient is of -[place] descent/extraction multiply the eGFR value by 1.212 to obtain the actual eGFR. >=60 mg/dL Normal 30-59 mg/dL Moderate Kidney Disease 15-29 mg/dL Severe Kidney Disease <15 mg/dL Kidney Failure June 07, 2015 9:00am BUN CREATININE RATIO(10.0-20.0 RATIO) 16.0 RATIO June 07, 2015 9:00am SODIUM(135-145 MMOL/L) 135 MMOL/L June 07, 2015 9:00am POTASSIUM(3.6-5.0 MMOL/L) 3.9 MMOL/L June 07, 2015 9:00am CHLORIDE(101-111 MMOL/L) 105 MMOL/L June 07, 2015 9:00am 2028-9: CO2(21-31 MMOL/L) 22.0 MMOL/L June 07, 2015 9:00am 23851-2: ANION GAP(8-18) 12 June 07, 2015 9:00am OSMO CALCULATED(270.0-290.0) 274.8 June 07, 2015 9:00am CALCIUM(8.5-10.5 MG/DL) 9.0 MG/DL June 07, 2015 9:00am BILIRUBIN,TOTAL(0.1-1.2 MG/DL) 0.8 MG/DL June 07, 2015 9:00am ALKALINE PHOSPHATASE(42-121 IU/L) 92 IU/L June 07, 2015 9:00am ASPARTATE AMINO TRANSFERASE(10-42 IU/L) 24 IU/L June 07, 2015 9:00am ALANINE AMINOTRANSFERASE(10-60 IU/L) 16 IU/L June 07, 2015 9:00am 76529-6: TOTAL PROTEIN(6.4-8.2 G/DL) 8.1 G/DL June 07, 2015 9:00am ALBUMIN(3.5-5.5 G/DL) 3.8 G/DL June 07, 2015 9:00am 2336-6: GLOBULIN(2.4-3.6) 4.3 June 07, 2015 9:00am ALBUMIN/GLOBULIN RATIO(0.9-1.8 RATIO) 0.9 RATIO June 07, 2015 9:00am 76489-0: CARDIAC TROPONIN I 55918-0: CARDIAC TROPONIN I(0.01-0.04 NG/ML) Less than 0.01 NG/ML Result Comments: REFERENCE RANGES: NEGATIVE < 0.04 NG/ML POSSIBLE MYCARDIAL INVOLVEMENT >/=0.04 NG/ML INTERPRET TROPONIN I RESULT IN LIGHT OF THE TOTAL CLINICAL PRESENTATION INCLUDING CLINICAL HISTORY. ANY CONDITION RESULTING IN MYOCARDIAL INJURY CAN POTENTIALLY ELEVATE TROPONIN I LEVELS ABOVE EXPECTED NORMAL RANGES. NOTE NEW REFERENCE RANGE June 07, 2015 9:00am Allergies and Adverse Reactions Allergies and Adverse Reactions Patient Unit Number: [id number] No allergies recorded. Problem List Problem List Visit/Account #[id number] (June 07, 2015 9:00am - June 07, 2015 10:03am) Acute Problems: Code/Condition Comments Documented Start Date Documented Resolved Date Code(s) Acute bronchitis ICD10: J20.9 Acute bronchitis ICD9: 466.0 Acute bronchitis SNOMED: 14091032 Acute bronchitis COPD exacerbation ICD10: J44.1 Obstructive chronic bronchitis with exacerbation ICD9: 491.21 Obstructive chronic bronchitis with exacerbation SNOMED: 893056526 Obstructive chronic bronchitis with exacerbation Plan of Care Plan Of Care Visit/Account #[id number] (June 07, 2015 9:00am - June 07, 2015 10:03am) Patient Instructions Take the antibiotics and prednisone taper as prescribed. Continue your inhalers as directed. Followup with your PCP in 2-3 days for recheck, or sooner if worsens. Return to the ER anytime if concerns. Vital Signs Vital Signs Visit/Account #[id number] (June 07, 2015 9:00am - June 07, 2015 10:03am) Sign First Result Last Result Code(s) Body Mass Index Body Mass Index (BMI): 36.0 kg/m2 On June 07, 2015 8:59am 18074-3 BMI (body mass index) Body Mass Index as a Calculated Value 36.2 kg/m2 On June 07, 2015 8:59am 27035-8 BMI (body mass index) Body Surface Area as a Calculated Value 1.76 m2 On June 07, 2015 8:59am 3140-1 BSA (body surface area) Height (Feet/Inches) 4 [ft_us] 11 [in_us] On June 07, 2015 8:59am Temperature in Fahrenheit Temperature (Fahrenheit): 96.8 [degF] On June 07, 2015 8:59am Temperature (Fahrenheit): 98 [degF] On June 07, 2015 10:03am 8310-5 Body Temperature Weight in Kilograms Weight (Kilograms): 81.3 kg On June 07, 2015 8:59am 3141-9 Weight Measured 10446-9 Body weight measured in kilograms Functional Status Functional and Cognitive Status No Functional Status Data Medications Inpatient/Ordered Medications - Medications administered during hospital visit Visit/Account #[id number] (June 07, 2015 9:00am - June 07, 2015 10:03am) Medication Route Sig/Schedule Precondition/Indication Comments/Instructions Codes ATROVENT 0.02% NEB(IPRATROPIUM BROMIDE) 0.5 MG/2.5 ML SOLUTION Dose: 2.5 ML INHALED NOW Ipratropium [place] 0.2 MG/ML Inhalant Solution (RxNorm): 491931 ATROVENT 0.02% NEB (IPRATROPIUM BROMIDE) NDC: 10511888616 XOPENEX NEB(LEVALBUTEROL) 1.25 MG/0.5 ML NEBULE Dose: 0.5 ML INHALED NOW Levalbuterol 0.417 MG/ML Inhalant Solution [Xopenex] (RxNorm): 719711 XOPENEX NEB (LEVALBUTEROL) NDC: 32142589853 Solu-MEDROL INJ(MethylPREDNISolone SOD SUCC) 125 MG/2 ML INJECTION Dose: 2 ML INTRAVEN NOW Methylprednisolone 62.5 MG/ML Injectable Solution [Solu-Medrol] (RxNorm): 520506 Solu-MEDROL INJ (MethylPREDNISolone SOD SUCC) NDC: 29385047764 Discharge Medications - Medications that patient should continue to take. Review with physician Visit/Account #[id number] (June 07, 2015 9:00am - June 07, 2015 10:03am) Medication Route Sig/Schedule Precondition/Indication Comments/Instructions Codes Zithromax (Z-Pack)(AZITHROMYCIN) 250 MG TAB Dose: 1 TAB ORAL DIRECTED Rx Instructions: TAKE 2 TABLETS TODAY THEN 1 TABLET DAILY ON DAYS 2-5. Azithromycin 250 MG Oral Tablet [Zithromax] (RxNorm): 200501 Zithromax (Z-Pack) (AZITHROMYCIN) NDC: 41287022359 Prednisone(PredniSONE) 20 MG TAB Dose: 20 MG ORAL DAILY Rx Instructions: Take 3 tabs QD for 3 days, then 2 tabs QD for 3 days, then 1 tab QD for 3 days, then 1/2 tab QD for 4 days. Prednisone 20 MG Oral Tablet (RxNorm): 181171 Prednisone (PredniSONE) NDC: 01032237693 History Of Encounters Encounters Visit/Account #[id number] (June 07, 2015 9:00am - June 07, 2015 10:03am) Account Status Physican Of Record Reason For Visit Visit Diagnosis Start Date/Time Stop Date/Time ER ADAM MURPHY MD COPD Not Available Jun 07, 2015 9:00am Jun 07, 2015 10:03am History of Procedures Procedure List No procedures recorded. Discharge Instructions Discharge Instructions Visit/Account #[id number] (June 07, 2015 9:00am - June 07, 2015 10:03am) DISCHARGE INSTRUCTIONS Physician Documentation Social History Social History No Social History Data. Immunizations Immunizations Patient Unit Number: [id number] Immunizations No immunizations recorded.
--- OUTSIDE RECORDS SUMMARY | 2019-01-20 15:12 | XMS REPORT | Continuity of Care Document ---
Author Organization Unknown Address Unknown Phone Unavailable Allergies Active Description Code Type Severity Reaction Onset Reported/Identified Relationship to Patient Clinical Status Yes aspirin Drug Allergy N/A N/A 08/21/2008 Yes aspirin Drug Allergy 08/21/2008 Yes sulfa drug Drug Allergy 08/21/2008 Yes aspirin [id number] Drug Allergy Mild N/A 04/01/2009 Yes [id number] (SULFA (SULFONAMIDE ANTIBIOTICS)) [id number] (SULFA (SULFONAMIDE ANTIBIOTICS)) Mild N/A 04/01/2009 Yes Cozaar 25 mg Tablet Drug Allergy N/A N/A 01/22/2012 Yes Cozaar 25 mg Tablet Drug Allergy 01/22/2012 Yes lisinopril 5 mg tablet Drug Allergy N/A N/A 05/12/2012 Yes lisinopril 5 mg tablet Drug Allergy 05/12/2012 Medications There is no data. Problems Date Dx Coded Attending Type Code Diagnosis Diagnosed By 01/12/2008 250.00 DIABETES MELLITUS 01/12/2008 CAMILLA KELLY DO 250.00 DIABETES MELLITUS 01/12/2008 250.00 DIABETES MELLITUS 01/12/2008 250.00 DIABETES MELLITUS 01/12/2008 CAMILLA KELLY DO 250.00 DIABETES MELLITUS 01/12/2008 CAMILLA KELLY DO 250.00 DIABETES MELLITUS 01/12/2008 250.00 DIABETES MELLITUS 01/12/2008 250.00 DIABETES MELLITUS 01/12/2008 CAMILLA KELLY DO 250.00 DIABETES MELLITUS 01/12/2008 CAMILLA KELLY DO 250.00 DIABETES MELLITUS 01/12/2008 CAMILLA KELLY DO 250.00 DIABETES MELLITUS 01/12/2008 KATRINA HAZEL APRN 250.00 DIABETES MELLITUS 01/12/2008 WAYNE CLARK APRN A 250.00 DIABETES MELLITUS 01/12/2008 WAYNE CLARK APRN A 250.00 DIABETES MELLITUS 01/12/2008 HERMILO VERDUGO APRN 250.00 DIABETES MELLITUS 01/12/2008 VERONICA ACRY MD 250.00 DIABETES MELLITUS 01/12/2008 HERMILO VERDUGO APRN T 250.00 DIABETES MELLITUS 01/12/2008 VERONICA CARY MD 250.00 DIABETES MELLITUS 01/12/2008 KARTIK JASSO, HERMILO T 250.00 DIABETES MELLITUS 01/12/2008 KARTIK JASSO, HERMILO T 250.00 DIABETES MELLITUS 01/12/2008 SCOTT JASSO ENRIQUE R 250.00 DIABETES MELLITUS 01/12/2008 VERONICA CARY MD 250.00 DIABETES MELLITUS 01/12/2008 KARTIK JASSO, HERMILO T 250.00 DIABETES MELLITUS 01/12/2008 KARTIK JASSO, HERMILO T 250.00 DIABETES MELLITUS 01/12/2008 KARTIK JASSO, HERMILO T 250.00 DIABETES MELLITUS 01/12/2008 KARTIK JASSO, HERMILO T 250.00 DIABETES MELLITUS 01/12/2008 KARTIK JASSO, HERMILO T 250.00 DIABETES MELLITUS 01/27/2008 493.92 ASTHMA (ACUTE) EXACERBATION 01/27/2008 CAMILLA KELLY DO 493.92 ASTHMA (ACUTE) EXACERBATION 01/27/2008 493.92 ASTHMA (ACUTE) EXACERBATION 01/27/2008 493.92 ASTHMA WITH ACUTE EXACERBATION 01/27/2008 CAMILLA KELLY DO 493.92 ASTHMA WITH ACUTE EXACERBATION 01/27/2008 CAMILLA KELLY DO 493.92 ASTHMA WITH ACUTE EXACERBATION 01/27/2008 493.92 ASTHMA WITH ACUTE EXACERBATION 01/27/2008 493.92 ASTHMA WITH ACUTE EXACERBATION 01/27/2008 CAMILLA KELLY DO 493.92 ASTHMA WITH ACUTE EXACERBATION 01/27/2008 CAMILLA KELLY DO 493.92 ASTHMA WITH ACUTE EXACERBATION 01/27/2008 CAMILLA KELLY DO 493.92 ASTHMA WITH ACUTE EXACERBATION 01/27/2008 KATRINA HAZEL APRN 493.92 ASTHMA WITH ACUTE EXACERBATION 01/27/2008 WAYNE CLARK APRN 493.92 ASTHMA WITH ACUTE EXACERBATION 01/27/2008 WAYNE CLARK APRN 493.92 ASTHMA WITH ACUTE EXACERBATION 01/27/2008 HERMILO VERDUGO APRN 493.92 ASTHMA WITH ACUTE EXACERBATION 01/27/2008 VERONICA CARY MD 493.92 ASTHMA WITH ACUTE EXACERBATION 01/27/2008 HERMILO VERDUGO APRN 493.92 ASTHMA WITH ACUTE EXACERBATION 01/27/2008 VERONICA CARY MD 493.92 ASTHMA WITH ACUTE EXACERBATION 01/27/2008 HERMILO VERDUGO APRN 493.92 ASTHMA WITH ACUTE EXACERBATION 01/27/2008 KARTIK MANAGER CCU, HERMILO Roebrts 493.92 ASTHMA WITH ACUTE EXACERBATION 01/27/2008 ENRIQUE CHAVEZ APRN 493.92 ASTHMA WITH ACUTE EXACERBATION 01/27/2008 VERONICA CARY MD 493.92 ASTHMA WITH ACUTE EXACERBATION 01/27/2008 KARTIK JASSO, HERMILO Roberts 493.92 ASTHMA WITH ACUTE EXACERBATION 01/27/2008 HERMILO VERDUGO APRN 493.92 ASTHMA WITH ACUTE EXACERBATION 01/27/2008 KARTIK JASSO, HERMILO Roberts 493.92 ASTHMA WITH ACUTE EXACERBATION 01/27/2008 KARTIK MANAGER CCU, HERMILO Roberts 493.92 ASTHMA WITH ACUTE EXACERBATION 01/27/2008 KRATIK MANAGER CCU, HERMILO Roberts 493.92 ASTHMA WITH ACUTE EXACERBATION 05/15/2008 272.4 HYPERLIPIDEMIA HYPERLIPOPROTEINEMIAS (Old Classification) 05/15/2008 789.00 ABDOMINAL PAIN UNSPECIFIED SITE 05/15/2008 GREYSON KELLY DOA K 272.4 HYPERLIPIDEMIA HYPERLIPOPROTEINEMIAS (Old Classification) 05/15/2008 ROBIN HERNANDEZ CAMILLA K 789.00 ABDOMINAL PAIN UNSPECIFIED SITE 05/15/2008 272.4 HYPERLIPIDEMIA HYPERLIPOPROTEINEMIAS (Old Classification) 05/15/2008 789.00 Abdominal Pain Unspecified Site 05/15/2008 272.4 HYPERLIPIDEMIA HYPERLIPOPROTEINEMIAS (Old Classification) 05/15/2008 789.00 Abdominal Pain Unspecified Site 05/15/2008 KELLY DO CAMILLA K 272.4 HYPERLIPIDEMIA HYPERLIPOPROTEINEMIAS (Old Classification) 05/15/2008 KELLY DO CAMILLA K 789.00 Abdominal Pain Unspecified Site 05/15/2008 ROBIN HERNANDEZ CAMILLA K 272.4 HYPERLIPIDEMIA HYPERLIPOPROTEINEMIAS (Old Classification) 05/15/2008 KELLY DO CAMILLA K 789.00 Abdominal Pain Unspecified Site 05/15/2008 272.4 HYPERLIPIDEMIA HYPERLIPOPROTEINEMIAS (Old Classification) 05/15/2008 789.00 Abdominal Pain Unspecified Site 05/15/2008 272.4 HYPERLIPIDEMIA HYPERLIPOPROTEINEMIAS (Old Classification) 05/15/2008 789.00 Abdominal Pain Unspecified Site 05/15/2008 KELLY DO CAMILLA K 272.4 HYPERLIPIDEMIA HYPERLIPOPROTEINEMIAS (Old Classification) 05/15/2008 KELLY DO CAMILLA K 789.00 Abdominal Pain Unspecified Site 05/15/2008 KELLY DO, CAMILLA K 272.4 HYPERLIPIDEMIA HYPERLIPOPROTEINEMIAS (Old Classification) 05/15/2008 KELLY DO, CAMILLA K 789.00 Abdominal Pain Unspecified Site 05/15/2008 KELLY DO, CAMILLA K 272.4 HYPERLIPIDEMIA HYPERLIPOPROTEINEMIAS (Old Classification) 05/15/2008 KELLY DO, CAMILLA K 789.00 Abdominal Pain Unspecified Site 05/15/2008 JAYJAY JOHN APRN, KATRINA N 272.4 HYPERLIPIDEMIA HYPERLIPOPROTEINEMIAS (Old Classification) 05/15/2008 RO DARONERO MANAGER CCU, KATRINA N 789.00 Abdominal Pain Unspecified Site 05/15/2008 AMBER MANAGER CCU, WAYNE A 272.4 HYPERLIPIDEMIA HYPERLIPOPROTEINEMIAS (Old Classification) 05/15/2008 AMBER APRN, WAYNE A 789.00 Abdominal Pain Unspecified Site 05/15/2008 AMBER APRN, WAYNE A 272.4 HYPERLIPIDEMIA HYPERLIPOPROTEINEMIAS (Old Classification) 05/15/2008 AMBER APRN, WAYNE A 789.00 Abdominal Pain Unspecified Site 05/15/2008 HERMILO VERDUGO APRN 272.4 HYPERLIPIDEMIA HYPERLIPOPROTEINEMIAS (Old Classification) 05/15/2008 HERMILO VERDUGO APRN 789.00 Abdominal Pain Unspecified Site 05/15/2008 VERONICA CARY MD 272.4 HYPERLIPIDEMIA HYPERLIPOPROTEINEMIAS (Old Classification) 05/15/2008 VERONICA CARY MD 789.00 Abdominal Pain Unspecified Site 05/15/2008 HERMILO VERDUGO APRN 272.4 HYPERLIPIDEMIA HYPERLIPOPROTEINEMIAS (Old Classification) 05/15/2008 HERMILO VERDUGO APRN 789.00 Abdominal Pain Unspecified Site 05/15/2008 VERONICA CARY MD 272.4 HYPERLIPIDEMIA HYPERLIPOPROTEINEMIAS (Old Classification) 05/15/2008 VERONICA CARY MD 789.00 Abdominal Pain Unspecified Site 05/15/2008 HERMILO VERDUGO APRN 272.4 HYPERLIPIDEMIA HYPERLIPOPROTEINEMIAS (Old Classification) 05/15/2008 HERMILO VERDUGO APRN 789.00 Abdominal Pain Unspecified Site 05/15/2008 HERMILO VERDUGO APRN 272.4 HYPERLIPIDEMIA HYPERLIPOPROTEINEMIAS (Old Classification) 05/15/2008 HERMILO VERDUGO APRN 789.00 Abdominal Pain Unspecified Site 05/15/2008 ENRIQUE CHAVEZ APRN R 272.4 HYPERLIPIDEMIA HYPERLIPOPROTEINEMIAS (Old Classification) 05/15/2008 ENRIQUE CHAVEZ APRN R 789.00 Abdominal Pain Unspecified Site 05/15/2008 VERONICA CARY MD 272.4 HYPERLIPIDEMIA HYPERLIPOPROTEINEMIAS (Old Classification) 05/15/2008 VERONICA CARY MD 789.00 Abdominal Pain Unspecified Site 05/15/2008 HERMILO VERDUGO APRN T 272.4 HYPERLIPIDEMIA HYPERLIPOPROTEINEMIAS (Old Classification) 05/15/2008 KARTIK JASSO HERMILO T 789.00 Abdominal Pain Unspecified Site 05/15/2008 HERMILO VERDUGO APRN T 272.4 HYPERLIPIDEMIA HYPERLIPOPROTEINEMIAS (Old Classification) 05/15/2008 KARTIK JASSO HERMILO T 789.00 Abdominal Pain Unspecified Site 05/15/2008 KARTIK JASSO HERMILO T 272.4 HYPERLIPIDEMIA HYPERLIPOPROTEINEMIAS (Old Classification) 05/15/2008 KARTIK JASSO, HERMILO T 789.00 Abdominal Pain Unspecified Site 05/15/2008 HERMILO VERDUGO APRN T 272.4 HYPERLIPIDEMIA HYPERLIPOPROTEINEMIAS (Old Classification) 05/15/2008 KARTIK JASSO, HERMILO T 789.00 Abdominal Pain Unspecified Site 05/15/2008 KARTIK JASSO, HERMILO T 272.4 HYPERLIPIDEMIA HYPERLIPOPROTEINEMIAS (Old Classification) 05/15/2008 KARTIK JASSO, HERMILO T 789.00 Abdominal Pain Unspecified Site 01/31/2009 250.02 DIABETES MELLITUS TYPE II - UNCOMPLICATED, UNCONTROLLED 01/31/2009 388.7 OTALGIA 01/31/2009 KELLY DO CAMILLA K 250.02 DIABETES MELLITUS TYPE II - UNCOMPLICATED, UNCONTROLLED 01/31/2009 KELLY DO CAMILLA K 388.7 OTALGIA 01/31/2009 250.02 DIABETES MELLITUS TYPE II - UNCOMPLICATED, UNCONTROLLED 01/31/2009 388.7 OTALGIA 01/31/2009 250.02 DIABETES MELLITUS TYPE 2 - UNCOMPLICATED, UNCONTROLLED 01/31/2009 388.7 OTALGIA 01/31/2009 KELLY DO CAMILLA K 250.02 DIABETES MELLITUS TYPE 2 - UNCOMPLICATED, UNCONTROLLED 01/31/2009 KELLY DO CAMILLA K 388.7 OTALGIA 01/31/2009 KELLY DO CAMILLA K 250.02 DIABETES MELLITUS TYPE 2 - UNCOMPLICATED, UNCONTROLLED 01/31/2009 KELLY DO CAMILLA K 388.7 OTALGIA 01/31/2009 250.02 DIABETES MELLITUS TYPE 2 - UNCOMPLICATED, UNCONTROLLED 01/31/2009 388.7 OTALGIA 01/31/2009 250.02 DIABETES MELLITUS TYPE 2 - UNCOMPLICATED, UNCONTROLLED 01/31/2009 388.7 OTALGIA 01/31/2009 KELLY DO, CAMILLA K 250.02 DIABETES MELLITUS TYPE 2 - UNCOMPLICATED, UNCONTROLLED 01/31/2009 KELLY DO, CAMILLA K 388.7 OTALGIA 01/31/2009 KELLY DO, CAMILLA K 250.02 DIABETES MELLITUS TYPE 2 - UNCOMPLICATED, UNCONTROLLED 01/31/2009 KELLY DO, CAMILLA K 388.7 OTALGIA 01/31/2009 KELLY DO, CAMILLA K 250.02 DIABETES MELLITUS TYPE 2 - UNCOMPLICATED, UNCONTROLLED 01/31/2009 KELLY DO, CAMILLA K 388.7 OTALGIA 01/31/2009 JAYJAY JOHN APRN, KATRINA N 250.02 DIABETES MELLITUS TYPE 2 - UNCOMPLICATED, UNCONTROLLED 01/31/2009 JAYJAY JOHN APRN, KATRINA N 388.7 OTALGIA 01/31/2009 AMBER JASSO, WAYNE A 250.02 DIABETES MELLITUS TYPE 2 - UNCOMPLICATED, UNCONTROLLED 01/31/2009 AMBER JASSO, WAYNE A 388.7 OTALGIA 01/31/2009 AMBER JASSO, WAYNE A 250.02 DIABETES MELLITUS TYPE 2 - UNCOMPLICATED, UNCONTROLLED 01/31/2009 AMBER JASSO, WAYNE A 388.7 OTALGIA 01/31/2009 HERMILO VERDUGO APRN 250.02 DIABETES MELLITUS TYPE 2 - UNCOMPLICATED, UNCONTROLLED 01/31/2009 HERMILO VERDUGO APRN 388.7 OTALGIA 01/31/2009 VERONICA CARY MD 250.02 DIABETES MELLITUS TYPE 2 - UNCOMPLICATED, UNCONTROLLED 01/31/2009 VERONICA CARY MD 388.7 OTALGIA 01/31/2009 HERMILO VERDUGO APRN 250.02 DIABETES MELLITUS TYPE 2 - UNCOMPLICATED, UNCONTROLLED 01/31/2009 HERMILO VERDUGO APRN 388.7 OTALGIA 01/31/2009 VERONICA CARY MD 250.02 DIABETES MELLITUS TYPE 2 - UNCOMPLICATED, UNCONTROLLED 01/31/2009 VERONICA CARY MD 388.7 OTALGIA 01/31/2009 HERMILO VERDUGO APRN 250.02 DIABETES MELLITUS TYPE 2 - UNCOMPLICATED, UNCONTROLLED 01/31/2009 HERMILO VERDUGO APRN 388.7 OTALGIA 01/31/2009 KARTIK JASSO, HERMILO T 250.02 DIABETES MELLITUS TYPE 2 - UNCOMPLICATED, UNCONTROLLED 01/31/2009 KARTIK JASSO, HERMILO T 388.7 OTALGIA 01/31/2009 SCOTT JASSO, ENRIQUE R 250.02 DIABETES MELLITUS TYPE 2 - UNCOMPLICATED, UNCONTROLLED 01/31/2009 SCOTT JASSO, ENRIQUE R 388.7 OTALGIA 01/31/2009 VERONICA CARY MD 250.02 DIABETES MELLITUS TYPE 2 - UNCOMPLICATED, UNCONTROLLED 01/31/2009 VERONICA CARY MD 388.7 OTALGIA 01/31/2009 HERMILO VERDUGO APRN T 250.02 DIABETES MELLITUS TYPE 2 - UNCOMPLICATED, UNCONTROLLED 01/31/2009 HERMILO VERDUGO APRN T 388.7 OTALGIA 01/31/2009 HERMILO VERDUGO APRN T 250.02 DIABETES MELLITUS TYPE 2 - UNCOMPLICATED, UNCONTROLLED 01/31/2009 HERMILO VERDUGO APRN T 388.7 OTALGIA 01/31/2009 HERMILO VERDUGO APRN T 250.02 DIABETES MELLITUS TYPE 2 - UNCOMPLICATED, UNCONTROLLED 01/31/2009 HERMILO VERDUGO APRN T 388.7 OTALGIA 01/31/2009 HERMILO VERDUGO APRN T 250.02 DIABETES MELLITUS TYPE 2 - UNCOMPLICATED, UNCONTROLLED 01/31/2009 HERMILO VERDUGO APRN T 388.7 OTALGIA 01/31/2009 HERMILO VERDUGO APRN T 250.02 DIABETES MELLITUS TYPE 2 - UNCOMPLICATED, UNCONTROLLED 01/31/2009 HERMILO VERDUGO APRN T 388.7 OTALGIA 05/08/2009 V15.81 NONCOMPLIANCE WITH MEDICAL TREATMENT 05/08/2009 CAMILLA KELLY DO V15.81 NONCOMPLIANCE WITH MEDICAL TREATMENT 05/08/2009 V15.81 NONCOMPLIANCE WITH MEDICAL TREATMENT 05/08/2009 V15.81 NONCOMPLIANCE WITH MEDICAL TREATMENT 05/08/2009 CAMILLA KELLY DO V15.81 NONCOMPLIANCE WITH MEDICAL TREATMENT 05/08/2009 CAMILLA KELLY DO V15.81 NONCOMPLIANCE WITH MEDICAL TREATMENT 05/08/2009 V15.81 NONCOMPLIANCE WITH MEDICAL TREATMENT 05/08/2009 V15.81 NONCOMPLIANCE WITH MEDICAL TREATMENT 05/08/2009 CAMILLA KELLY DO V15.81 NONCOMPLIANCE WITH MEDICAL TREATMENT 05/08/2009 CAMILLA KELLY DO V15.81 NONCOMPLIANCE WITH MEDICAL TREATMENT 05/08/2009 CAMILLA KELLY DO K V15.81 NONCOMPLIANCE WITH MEDICAL TREATMENT 05/08/2009 ROPHYLLIS NERIPATRICIA LOUISA KATRINA N V15.81 NONCOMPLIANCE WITH MEDICAL TREATMENT 05/08/2009 WAYNE CLARK APRN A V15.81 NONCOMPLIANCE WITH MEDICAL TREATMENT 05/08/2009 WAYNE CLARK APRN A V15.81 NONCOMPLIANCE WITH MEDICAL TREATMENT 05/08/2009 HERMILO VERDUGO APRN V15.81 NONCOMPLIANCE WITH MEDICAL TREATMENT 05/08/2009 VERONICA CARY MD V15.81 NONCOMPLIANCE WITH MEDICAL TREATMENT 05/08/2009 HERMILO VERDUGO APRN V15.81 NONCOMPLIANCE WITH MEDICAL TREATMENT 05/08/2009 VERONICA CARY MD V15.81 NONCOMPLIANCE WITH MEDICAL TREATMENT 05/08/2009 HERMILO VERDUGO APRN V15.81 NONCOMPLIANCE WITH MEDICAL TREATMENT 05/08/2009 HERMILO VERDUGO APRN V15.81 NONCOMPLIANCE WITH MEDICAL TREATMENT 05/08/2009 ENRIQUE CHAVEZ APRN V15.81 NONCOMPLIANCE WITH MEDICAL TREATMENT 05/08/2009 VERONICA CARY MD V15.81 NONCOMPLIANCE WITH MEDICAL TREATMENT 05/08/2009 HERMILO VERDUGO APRN V15.81 NONCOMPLIANCE WITH MEDICAL TREATMENT 05/08/2009 HERMILO VERDUGO APRN V15.81 NONCOMPLIANCE WITH MEDICAL TREATMENT 05/08/2009 HERMILO VERDUGO APRN V15.81 NONCOMPLIANCE WITH MEDICAL TREATMENT 05/08/2009 HERMILO VERDUGO APRN V15.81 NONCOMPLIANCE WITH MEDICAL TREATMENT 05/08/2009 HERMILO VERDUGO APRN V15.81 NONCOMPLIANCE WITH MEDICAL TREATMENT 09/16/2009 791.0 MICROALBUMINURIA 09/16/2009 GREYSON KELLY DOA K 791.0 MICROALBUMINURIA 09/16/2009 791.0 MICROALBUMINURIA 09/16/2009 791.0 MICROALBUMINURIA 09/16/2009 GREYSON KELLY DOA K 791.0 PROTEINURIA 09/16/2009 ROBIN HERNANDEZ, CAMILLA K 791.0 PROTEINURIA 09/16/2009 791.0 PROTEINURIA 09/16/2009 791.0 PROTEINURIA 09/16/2009 GREYSON KELLY DOA K 791.0 PROTEINURIA 09/16/2009 KELLY DO, CAMILLA K 791.0 PROTEINURIA 09/16/2009 KELLY DO, CAMILLA K 791.0 PROTEINURIA 09/16/2009 JAYJAY JOHN MANAGER CCUKATRINA N 791.0 PROTEINURIA 09/16/2009 AMBER MANAGER CCU, WAYNE A 791.0 PROTEINURIA 09/16/2009 AMBER MANAGER CCU, AWYNE A 791.0 PROTEINURIA 09/16/2009 HERMILO VERDUGO APRN 791.0 PROTEINURIA 09/16/2009 VERONICA CARY MD 791.0 PROTEINURIA 09/16/2009 HERMILO VERDUGO APRN T 791.0 PROTEINURIA 09/16/2009 VERONICA CARY MD 791.0 PROTEINURIA 09/16/2009 KARTIK MANAGER CCU, HERMILO T 791.0 PROTEINURIA 09/16/2009 KARTIK MANAGER CCU, HERMILO T 791.0 PROTEINURIA 09/16/2009 SCOTT MANAGER CCU, ENRIQUE R 791.0 PROTEINURIA 09/16/2009 VERONICA CARY MD 791.0 PROTEINURIA 09/16/2009 HERMILO VERDUGO APRN 791.0 PROTEINURIA 09/16/2009 HERMILO VERDUGO APRN T 791.0 PROTEINURIA 09/16/2009 KARTIK MARINELLIN, HERMILO T 791.0 PROTEINURIA 09/16/2009 KARTIK MANAGER CCU, HERMILO T 791.0 PROTEINURIA 09/16/2009 KARTIK MANAGER CCU, HERMILO T 791.0 PROTEINURIA 09/19/2009 482.9 Bacterial Pneumonia Unspecified 09/19/2009 786.2 Cough 09/19/2009 KELLY DO, CAMILLA K 482.9 Bacterial Pneumonia Unspecified 09/19/2009 KELLY DO, CAMILLA K 786.2 Cough 09/19/2009 482.9 Bacterial Pneumonia Unspecified 09/19/2009 786.2 Cough 09/19/2009 482.9 Bacterial Pneumonia Unspecified 09/19/2009 786.2 Cough 09/19/2009 KELLY DO, CAMILLA K 482.9 Bacterial Pneumonia Unspecified 09/19/2009 KELLY DO, CAMILLA K 786.2 Cough 09/19/2009 KELLY DO, CAMILLA K 482.9 Bacterial Pneumonia Unspecified 09/19/2009 KELLY DO, CAMILLA K 786.2 Cough 09/19/2009 482.9 Bacterial Pneumonia Unspecified 09/19/2009 786.2 Cough 09/19/2009 482.9 Bacterial Pneumonia Unspecified 09/19/2009 786.2 Cough 09/19/2009 KELLY DO, CAMILLA K 482.9 Bacterial Pneumonia Unspecified 09/19/2009 KELLY DO, CAMILLA K 786.2 Cough 09/19/2009 KELLY DO, CAMILLA K 482.9 Bacterial Pneumonia Unspecified 09/19/2009 KELLY DO, CAMILLA K 786.2 Cough 09/19/2009 KELLY DO, CAMILLA K 482.9 Bacterial Pneumonia Unspecified 09/19/2009 KELLY DO, CAMILLA K 786.2 Cough 09/19/2009 RO CASHERO MANAGER CCU, KATRINA N 482.9 Bacterial Pneumonia Unspecified 09/19/2009 RO CASHERO MANAGER CCU, KATRINA N 786.2 Cough 09/19/2009 AMBER MANAGER CCU, WAYNE A 482.9 Bacterial Pneumonia Unspecified 09/19/2009 AMBER MANAGER CCU, WAYNE A 786.2 Cough 09/19/2009 AMBER MANAGER CCU, WAYNE A 482.9 Bacterial Pneumonia Unspecified 09/19/2009 AMBER MANAGER CCU, WAYNE A 786.2 Cough 09/19/2009 HERMILO VERDUGO APRN 482.9 Bacterial Pneumonia Unspecified 09/19/2009 HERMILO VERDUGO APRN 786.2 Cough 09/19/2009 VERONICA CARY MD 482.9 Bacterial Pneumonia Unspecified 09/19/2009 VERONICA CARY MD 786.2 Cough 09/19/2009 HERMILO VERDUGO APRN 482.9 Bacterial Pneumonia Unspecified 09/19/2009 HERMILO VERDUGO APRN 786.2 Cough 09/19/2009 VERONICA CARY MD 482.9 Bacterial Pneumonia Unspecified 09/19/2009 VERONICA CARY MD 786.2 Cough 09/19/2009 HERMILO VERDUGO APRN 482.9 Bacterial Pneumonia Unspecified 09/19/2009 HERMILO VERDUGO APRN 786.2 Cough 09/19/2009 HERMILO VERDUGO APRN 482.9 Bacterial Pneumonia Unspecified 09/19/2009 HERMILO VERDUGO APRN 786.2 Cough 09/19/2009 ENRIQUE CHAVEZ APRN 482.9 Bacterial Pneumonia Unspecified 09/19/2009 ENRIQUE CHAVEZ APRN R 786.2 Cough 09/19/2009 VERONICA CARY MD 482.9 Bacterial Pneumonia Unspecified 09/19/2009 VERONICA CARY MD 786.2 Cough 09/19/2009 KARTIK MANAGER CCU, HERMILO T 482.9 Bacterial Pneumonia Unspecified 09/19/2009 KARTIK MANAGER CCU, HERMILO T 786.2 Cough 09/19/2009 KARTIK MANAGER CCU, HERMILO T 482.9 Bacterial Pneumonia Unspecified 09/19/2009 KARTIK MANAGER CCU, HERMILO T 786.2 Cough 09/19/2009 KARTIK MANAGER CCU, HERMILO T 482.9 Bacterial Pneumonia Unspecified 09/19/2009 KARTIK MANAGER CCU, HERMILO T 786.2 Cough 09/19/2009 KARTIK MANAGER CCU, HERMILO T 482.9 Bacterial Pneumonia Unspecified 09/19/2009 KARTIK MANAGER CCU, HERMILO T 786.2 Cough 09/19/2009 KARTIK MANAGER CCU, HERMILO T 482.9 Bacterial Pneumonia Unspecified 09/19/2009 KARTIK MANAGER CCU, HERMILO T 786.2 Cough 01/30/2010 719.43 Pain In Joint, Forearm 01/30/2010 GREYSON KELLY DOA K 719.43 Pain In Joint, Forearm 01/30/2010 719.43 Pain In Joint, Forearm 01/30/2010 719.43 Pain In Joint, Forearm 01/30/2010 ROBIN HERNANDEZ CAMILLA K 719.43 Pain In Joint, Forearm 01/30/2010 KELLY DO, CAMILLA K 719.43 Pain In Joint, Forearm 01/30/2010 719.43 Pain In Joint, Forearm 01/30/2010 719.43 Pain In Joint, Forearm 01/30/2010 KELLY DO, CAMILLA K 719.43 Pain In Joint, Forearm 01/30/2010 KELLY DO, CAMILLA K 719.43 Pain In Joint, Forearm 01/30/2010 KELLY DO CAMILLA K 719.43 Pain In Joint, Forearm 01/30/2010 KATRINA HAZEL APRN 719.43 Pain In Joint, Forearm 01/30/2010 WAYNE CLARK APRN A 719.43 Pain In Joint, Forearm 01/30/2010 WAYNE CLARK APRN A 719.43 Pain In Joint, Forearm 01/30/2010 HERMILO VERDUGO APRN T 719.43 Pain In Joint, Forearm 01/30/2010 VERONICA CARY MD 719.43 Pain In Joint, Forearm 01/30/2010 HERMILO VERDUGO APRN T 719.43 Pain In Joint, Forearm 01/30/2010 VERONICA CARY MD 719.43 Pain In Joint, Forearm 01/30/2010 HERMILO VERDUGO APRN 719.43 Pain In Joint, Forearm 01/30/2010 HERMILO VERDUGO APRN 719.43 Pain In Joint, Forearm 01/30/2010 ENRIQUE CHAVEZ APRN 719.43 Pain In Joint, Forearm 01/30/2010 VERONICA CARY MD 719.43 Pain In Joint, Forearm 01/30/2010 HERMILO VERDUGO APRN 719.43 Pain In Joint, Forearm 01/30/2010 HERMILO VERDUGO APRN 719.43 Pain In Joint, Forearm 01/30/2010 HERMILO VERDUGO APRN 719.43 Pain In Joint, Forearm 01/30/2010 HERMILO VERDUGO APRN 719.43 Pain In Joint, Forearm 01/30/2010 HERMILO VERDUGO APRN 719.43 Pain In Joint, Forearm 02/20/2010 465.9 Acute Upper Respiratory Infections Of Unspecified Site 02/20/2010 KELLY DO, CAMILLA K 465.9 Acute Upper Respiratory Infections Of Unspecified Site 02/20/2010 465.9 Acute Upper Respiratory Infections Of Unspecified Site 02/20/2010 465.9 Acute Upper Respiratory Infections Of Unspecified Site 02/20/2010 KELLY DO, CAMILLA K 465.9 Acute Upper Respiratory Infections Of Unspecified Site 02/20/2010 KELLY DO, CAMILLA K 465.9 Acute Upper Respiratory Infections Of Unspecified Site 02/20/2010 465.9 Acute Upper Respiratory Infections Of Unspecified Site 02/20/2010 465.9 Acute Upper Respiratory Infections Of Unspecified Site 02/20/2010 KELLY DO, CAMILLA K 465.9 Acute Upper Respiratory Infections Of Unspecified Site 02/20/2010 KELLY DO, CAMILLA K 465.9 Acute Upper Respiratory Infections Of Unspecified Site 02/20/2010 KELLY DO, CAMILLA K 465.9 Acute Upper Respiratory Infections Of Unspecified Site 02/20/2010 KATRINA HAZEL APRN 465.9 Acute Upper Respiratory Infections Of Unspecified Site 02/20/2010 WAYNE CLARK APRN A 465.9 Acute Upper Respiratory Infections Of Unspecified Site 02/20/2010 WAYNE CLARK APRN A 465.9 Acute Upper Respiratory Infections Of Unspecified Site 02/20/2010 HERMILO VERDUGO APRN 465.9 Acute Upper Respiratory Infections Of Unspecified Site 02/20/2010 VERONICA CARY MD 465.9 Acute Upper Respiratory Infections Of Unspecified Site 02/20/2010 HERMILO VERDUGO APRN 465.9 Acute Upper Respiratory Infections Of Unspecified Site 02/20/2010 VERONICA CARY MD 465.9 Acute Upper Respiratory Infections Of Unspecified Site 02/20/2010 HERMILO VERDUGO APRN 465.9 Acute Upper Respiratory Infections Of Unspecified Site 02/20/2010 HERMILO VERDUGO APRN 465.9 Acute Upper Respiratory Infections Of Unspecified Site 02/20/2010 ENRIQUE CHAVEZ APRN 465.9 Acute Upper Respiratory Infections Of Unspecified Site 02/20/2010 VERONICA CARY MD 465.9 Acute Upper Respiratory Infections Of Unspecified Site 02/20/2010 HERMILO VERDUGO APRN 465.9 Acute Upper Respiratory Infections Of Unspecified Site 02/20/2010 HERMILO VERDUGO APRN 465.9 Acute Upper Respiratory Infections Of Unspecified Site 02/20/2010 HERMILO VERDUGO APRN 465.9 Acute Upper Respiratory Infections Of Unspecified Site 02/20/2010 HERMILO VERDUGO APRN 465.9 Acute Upper Respiratory Infections Of Unspecified Site 02/20/2010 HERMILO VERDUGO APRN 465.9 Acute Upper Respiratory Infections Of Unspecified Site 05/20/2010 477.9 Rhinitis 05/20/2010 V68.1 ISSUE OF REPEAT PRESCRIPTIONS 05/20/2010 CAMILLA KELLY DO 477.9 Rhinitis 05/20/2010 CAMILLA KELLY DO V68.1 ISSUE OF REPEAT PRESCRIPTIONS 05/20/2010 477.9 Rhinitis 05/20/2010 V68.1 ISSUE OF REPEAT PRESCRIPTIONS 05/20/2010 477.9 Rhinitis 05/20/2010 V68.1 ISSUE OF REPEAT PRESCRIPTIONS 05/20/2010 CAMILLA KELLY DO 477.9 Rhinitis 05/20/2010 CAMILLA KELLY DO V68.1 ISSUE OF REPEAT PRESCRIPTIONS 05/20/2010 CAMILLA KELLY DO 477.9 Rhinitis 05/20/2010 CAMILLA KELLY DO V68.1 ISSUE OF REPEAT PRESCRIPTIONS 05/20/2010 477.9 Rhinitis 05/20/2010 V68.1 ISSUE OF REPEAT PRESCRIPTIONS 05/20/2010 477.9 Rhinitis 05/20/2010 V68.1 ISSUE OF REPEAT PRESCRIPTIONS 05/20/2010 KELLY DO, CAMILLA K 477.9 Rhinitis 05/20/2010 KELLY DO, CAMILLA K V68.1 ISSUE OF REPEAT PRESCRIPTIONS 05/20/2010 KELLY DO, CAMILLA K 477.9 Rhinitis 05/20/2010 KELLY DO, CAMILLA K V68.1 ISSUE OF REPEAT PRESCRIPTIONS 05/20/2010 KELLY DO, CAMILLA K 477.9 Rhinitis 05/20/2010 KELLY DO, CAMILAL K V68.1 ISSUE OF REPEAT PRESCRIPTIONS 05/20/2010 ROPHYLLIS JOHN APRN, KATRINA N 477.9 Rhinitis 05/20/2010 RO DARONERO MANAGER CCU, KATRINA N V68.1 ISSUE OF REPEAT PRESCRIPTIONS 05/20/2010 AMBER JASSO WAYNE A 477.9 Rhinitis 05/20/2010 AMBER JASSO WAYNE A V68.1 ISSUE OF REPEAT PRESCRIPTIONS 05/20/2010 AMBER JASSO WAYNE A 477.9 Rhinitis 05/20/2010 AMBER JASSO WAYNE A V68.1 ISSUE OF REPEAT PRESCRIPTIONS 05/20/2010 HERMILO VERDUGO APRN 477.9 Rhinitis 05/20/2010 HERMILO VERDUGO APRN V68.1 ISSUE OF REPEAT PRESCRIPTIONS 05/20/2010 VERONICA CARY MD7.9 Rhinitis 05/20/2010 VERONICA CARY MD V68.1 ISSUE OF REPEAT PRESCRIPTIONS 05/20/2010 HERMILO VERDUGO APRN 477.9 Rhinitis 05/20/2010 HERMILO VERDUGO APRN V68.1 ISSUE OF REPEAT PRESCRIPTIONS 05/20/2010 VERONICA CARY MD7.9 Rhinitis 05/20/2010 VERONICA CARY MD V68.1 ISSUE OF REPEAT PRESCRIPTIONS 05/20/2010 HERMILO VERDUGO APRN 477.9 Rhinitis 05/20/2010 HERMILO VERDUGO APRN V68.1 ISSUE OF REPEAT PRESCRIPTIONS 05/20/2010 HERMILO VERDUGO APRN 477.9 Rhinitis 05/20/2010 HERMILO VERDUGO APRN V68.1 ISSUE OF REPEAT PRESCRIPTIONS 05/20/2010 ENRIQUE CHAVEZ APRN 477.9 Rhinitis 05/20/2010 ENRIQUE CHAVEZ APRN R V68.1 ISSUE OF REPEAT PRESCRIPTIONS 05/20/2010 VERONICA CARY MD.9 Rhinitis 05/20/2010 VERONICA CARY MD V68.1 ISSUE OF REPEAT PRESCRIPTIONS 05/20/2010 HERMILO VERDUGO APRN 477.9 Rhinitis 05/20/2010 HERMILO VERDUGO APRN V68.1 ISSUE OF REPEAT PRESCRIPTIONS 05/20/2010 HERMILO VERDUGO APRN 477.9 Rhinitis 05/20/2010 HERMILO VERDUGO APRN T V68.1 ISSUE OF REPEAT PRESCRIPTIONS 05/20/2010 HERMILO VERDUGO APRN 477.9 Rhinitis 05/20/2010 HERMILO VERDUGO APRN V68.1 ISSUE OF REPEAT PRESCRIPTIONS 05/20/2010 HERMILO VERDUGO APRN 477.9 Rhinitis 05/20/2010 HERMILO VERDUGO APRN V68.1 ISSUE OF REPEAT PRESCRIPTIONS 05/20/2010 HERMILO VERDUGO APRN 477.9 Rhinitis 05/20/2010 HERMILO VERDUGO APRN V68.1 ISSUE OF REPEAT PRESCRIPTIONS 08/27/2010 787.02 Nausea Alone 08/27/2010 789.07 Abdominal Pain Generalized 08/27/2010 CAMILLA KELLY DO 787.02 Nausea Alone 08/27/2010 CAMILLA KELLY DO 789.07 Abdominal Pain Generalized 08/27/2010 787.02 Nausea Alone 08/27/2010 789.07 Abdominal Pain Generalized 08/27/2010 787.02 Nausea Alone 08/27/2010 789.07 Abdominal Pain Generalized 08/27/2010 CAMILLA KELLY DO 787.02 Nausea Alone 08/27/2010 CAMILLA KELLY DO 789.07 Abdominal Pain Generalized 08/27/2010 CAMILLA KELLY DO 787.02 Nausea Alone 08/27/2010 CAMILLA KELLY DO 789.07 Abdominal Pain Generalized 08/27/2010 787.02 Nausea Alone 08/27/2010 789.07 Abdominal Pain Generalized 08/27/2010 787.02 Nausea Alone 08/27/2010 789.07 Abdominal Pain Generalized 08/27/2010 CAMILLA KELLY DO 787.02 Nausea Alone 08/27/2010 CAMILLA KELLY DO 789.07 Abdominal Pain Generalized 08/27/2010 CAMILLA KELLY DO 787.02 Nausea Alone 08/27/2010 CAMILLA KELLY DO 789.07 Abdominal Pain Generalized 08/27/2010 CAMILLA KELLY DO 787.02 Nausea Alone 08/27/2010 CAMILLA KELLY DO 789.07 Abdominal Pain Generalized 08/27/2010 KATRINA HAZEL APRN N 787.02 Nausea Alone 08/27/2010 KATRINA HAZEL APRN N 789.07 Abdominal Pain Generalized 08/27/2010 AMBER MANAGER CCU, WAYNE A 787.02 Nausea Alone 08/27/2010 AMBER JASSO, WAYNE A 789.07 Abdominal Pain Generalized 08/27/2010 AMBER MARINELLIN, WAYNE A 787.02 Nausea Alone 08/27/2010 AMBER LOUISA, WAYNE A 789.07 Abdominal Pain Generalized 08/27/2010 HERMILO VERDUGO APRN 787.02 Nausea Alone 08/27/2010 HERMILO VERDUGO APRN 789.07 Abdominal Pain Generalized 08/27/2010 VERONICA CARY MD 787.02 Nausea Alone 08/27/2010 VERONICA CARY MD9.07 Abdominal Pain Generalized 08/27/2010 HERMILO VERDUGO APRN 787.02 Nausea Alone 08/27/2010 HERMILO VERDUGO APRN 789.07 Abdominal Pain Generalized 08/27/2010 VERONICA CARY MD 787.02 Nausea Alone 08/27/2010 VERONICA CARY MD 789.07 Abdominal Pain Generalized 08/27/2010 HERMILO VERDUGO APRN 787.02 Nausea Alone 08/27/2010 HERMILO VERDUGO APRN 789.07 Abdominal Pain Generalized 08/27/2010 HERMILO VERDUGO APRN 787.02 Nausea Alone 08/27/2010 HERMILO VERDUGO APRN 789.07 Abdominal Pain Generalized 08/27/2010 ENRIQUE CHAVEZ APRN R 787.02 Nausea Alone 08/27/2010 ENRIQUE CHAVEZ APRN R 789.07 Abdominal Pain Generalized 08/27/2010 VERONICA CARY MD 787.02 Nausea Alone 08/27/2010 VERONICA CARY MD9.07 Abdominal Pain Generalized 08/27/2010 HERMILO VERDUGO APRN 787.02 Nausea Alone 08/27/2010 HERMILO VERDUGO APRN 789.07 Abdominal Pain Generalized 08/27/2010 HERMILO VERDUGO APRN 787.02 Nausea Alone 08/27/2010 HERMILO VERDUGO APRN 789.07 Abdominal Pain Generalized 08/27/2010 HERMILO VERDUGO APRN 787.02 Nausea Alone 08/27/2010 KARTIK MARINELLIN, HERMILO T 789.07 Abdominal Pain Generalized 08/27/2010 KARTIK MANAGER CCU, HERMILO T 787.02 Nausea Alone 08/27/2010 KARTIK MARINELLIN, HERMILO T 789.07 Abdominal Pain Generalized 08/27/2010 KARTIK MARINELLIN, HERMILO T 787.02 Nausea Alone 08/27/2010 KARTIK MARINELLIN, HERMILO T 789.07 Abdominal Pain Generalized 08/29/2010 466.0 Bronchitis, Acute 08/29/2010 786.05 Shortness Of Breath 08/29/2010 KELLY DO, CAMILLA K 466.0 Bronchitis, Acute 08/29/2010 KELLY DO, CAMILLA K 786.05 Shortness Of Breath 08/29/2010 466.0 Bronchitis, Acute 08/29/2010 786.05 Shortness Of Breath 08/29/2010 466.0 Bronchitis, Acute 08/29/2010 786.05 Shortness Of Breath 08/29/2010 KELLY DO, CAMILLA K 466.0 Bronchitis, Acute 08/29/2010 KELLY DO, CAMILLA K 786.05 Shortness Of Breath 08/29/2010 KELLY DO, CAMILLA K 466.0 Bronchitis, Acute 08/29/2010 KELLY DO, CAMILLA K 786.05 Shortness Of Breath 08/29/2010 466.0 Bronchitis, Acute 08/29/2010 786.05 Shortness Of Breath 08/29/2010 466.0 Bronchitis, Acute 08/29/2010 786.05 Shortness Of Breath 08/29/2010 KELLY DO, CAMILLA K 466.0 Bronchitis, Acute 08/29/2010 KELLY DO, CAMILLA K 786.05 Shortness Of Breath 08/29/2010 KELLY DO, CAMILLA K 466.0 Bronchitis, Acute 08/29/2010 KELLY DO, CAMILLA K 786.05 Shortness Of Breath 08/29/2010 KELLY DO, CAMILLA K 466.0 Bronchitis, Acute 08/29/2010 KELLY DO, CAMILLA K 786.05 Shortness Of Breath 08/29/2010 RO CASHERO MANAGER CCU, KATRINA N 466.0 Bronchitis, Acute 08/29/2010 RO CASHERO MANAGER CCU, KATRINA N 786.05 Shortness Of Breath 08/29/2010 AMBER MANAGER CCU, WAYNE A 466.0 Bronchitis, Acute 08/29/2010 AMBER MANAGER CCU, WAYNE A 786.05 Shortness Of Breath 08/29/2010 AMBER JASSO, WAYNE A 466.0 Bronchitis, Acute 08/29/2010 AMBER JASSO, WAYNE A 786.05 Shortness Of Breath 08/29/2010 KARTIK JASSO HERMILO T 466.0 Bronchitis, Acute 08/29/2010 KARTIK JASSO, HERMILO T 786.05 Shortness Of Breath 08/29/2010 VERONICA CARY MD 466.0 Bronchitis, Acute 08/29/2010 VERONICA CARY MD 786.05 Shortness Of Breath 08/29/2010 KARTIK JASSO HERMILO T 466.0 Bronchitis, Acute 08/29/2010 KARTIK JASOS, HERMILO T 786.05 Shortness Of Breath 08/29/2010 VERONICA CARY MD 466.0 Bronchitis, Acute 08/29/2010 VERONICA CARY MD 786.05 Shortness Of Breath 08/29/2010 KARTIK JASSO HERMILO T 466.0 Bronchitis, Acute 08/29/2010 KARTIK JASSO HERMILO T 786.05 Shortness Of Breath 08/29/2010 HERMILO VERDUGO APRN T 466.0 Bronchitis, Acute 08/29/2010 KARTIK JASSO HERMILO T 786.05 Shortness Of Breath 08/29/2010 SCOTT JASSO ENRIQUE R 466.0 Bronchitis, Acute 08/29/2010 SCOTT JASSO ENRIQUE R 786.05 Shortness Of Breath 08/29/2010 VERONICA CARY MD 466.0 Bronchitis, Acute 08/29/2010 VERONICA CARY MD 786.05 Shortness Of Breath 08/29/2010 KARTIK JASSO HERMILO T 466.0 Bronchitis, Acute 08/29/2010 KARTIK JASSO HERMILO T 786.05 Shortness Of Breath 08/29/2010 KARTIK JASSO HERMILO T 466.0 Bronchitis, Acute 08/29/2010 KARTIK JASSO HERMILO T 786.05 Shortness Of Breath 08/29/2010 KARTIK JASSO HERMILO T 466.0 Bronchitis, Acute 08/29/2010 KARTIK JASSO HERMILO T 786.05 Shortness Of Breath 08/29/2010 KARTIK JASSO HERMILO T 466.0 Bronchitis, Acute 08/29/2010 KARTIK JASSO HERMILO T 786.05 Shortness Of Breath 08/29/2010 KARTIK JASSO HERMILO T 466.0 Bronchitis, Acute 08/29/2010 KARTIK JASSO HERMILO T 786.05 Shortness Of Breath 11/03/2010 Ot 250.00 11/03/2010 Ot 272.4 11/03/2010 Ot 300.4 11/03/2010 Ot 401.9 11/03/2010 Ot 496 11/03/2010 Ot 564.00 11/03/2010 Ot 573.9 11/03/2010 Ot 787.01 11/03/2010 Ot 789.01 11/03/2010 Ot V58.69 11/19/2010 571.8 OTHER CHRONIC NONALCOHOLIC LIVER DISEASE 11/19/2010 KELLY DO CAMILLA K 571.8 OTHER CHRONIC NONALCOHOLIC LIVER DISEASE 11/19/2010 571.8 OTHER CHRONIC NONALCOHOLIC LIVER DISEASE 11/19/2010 571.8 OTHER CHRONIC NONALCOHOLIC LIVER DISEASE 11/19/2010 KELLY DO CAIMLLA K 571.8 OTHER CHRONIC NONALCOHOLIC LIVER DISEASE 11/19/2010 KELLY DO CAMILLA K 571.8 OTHER CHRONIC NONALCOHOLIC LIVER DISEASE 11/19/2010 571.8 OTHER CHRONIC NONALCOHOLIC LIVER DISEASE 11/19/2010 571.8 OTHER CHRONIC NONALCOHOLIC LIVER DISEASE 11/19/2010 KELLY DO CAMILLA K 571.8 OTHER CHRONIC NONALCOHOLIC LIVER DISEASE 11/19/2010 KELLY DO CAMILLA K 571.8 OTHER CHRONIC NONALCOHOLIC LIVER DISEASE 11/19/2010 KELLY DO CAMILLA K 571.8 OTHER CHRONIC NONALCOHOLIC LIVER DISEASE 11/19/2010 KATRINA HAZEL APRN 571.8 OTHER CHRONIC NONALCOHOLIC LIVER DISEASE 11/19/2010 WAYNE CLARK APRN A 571.8 OTHER CHRONIC NONALCOHOLIC LIVER DISEASE 11/19/2010 MOIRA CLARK APRNIDI A 571.8 OTHER CHRONIC NONALCOHOLIC LIVER DISEASE 11/19/2010 HERMILO VERDUGO APRN 571.8 OTHER CHRONIC NONALCOHOLIC LIVER DISEASE 11/19/2010 VERONICA CARY MD 571.8 OTHER CHRONIC NONALCOHOLIC LIVER DISEASE 11/19/2010 HERMILO EVRDUGO APRN 571.8 OTHER CHRONIC NONALCOHOLIC LIVER DISEASE 11/19/2010 VERONICA CARY MD 571.8 OTHER CHRONIC NONALCOHOLIC LIVER DISEASE 11/19/2010 HERMILO VERDUGO APRN 571.8 OTHER CHRONIC NONALCOHOLIC LIVER DISEASE 11/19/2010 HERMILO VERDUGO APRN 571.8 OTHER CHRONIC NONALCOHOLIC LIVER DISEASE 11/19/2010 CHAVEZ MANAGER CCU, ENRIQUE R 571.8 OTHER CHRONIC NONALCOHOLIC LIVER DISEASE 11/19/2010 VERONICA CARY MD 571.8 OTHER CHRONIC NONALCOHOLIC LIVER DISEASE 11/19/2010 HERMILO VERDUGO APRN T 571.8 OTHER CHRONIC NONALCOHOLIC LIVER DISEASE 11/19/2010 HERMILO VERDUGO APRN T 571.8 OTHER CHRONIC NONALCOHOLIC LIVER DISEASE 11/19/2010 HERMILO VERDUGO APRN T 571.8 OTHER CHRONIC NONALCOHOLIC LIVER DISEASE 11/19/2010 HERMILO VERDUGO APRN 571.8 OTHER CHRONIC NONALCOHOLIC LIVER DISEASE 11/19/2010 HERMILO VERDUGO APRN T 571.8 OTHER CHRONIC NONALCOHOLIC LIVER DISEASE 12/23/2010 564.00 Constipation 12/23/2010 KELLY DO, CAMILLA K 564.00 Constipation 12/23/2010 564.00 Constipation 12/23/2010 564.00 Constipation 12/23/2010 KELLY DO, CAMILLA K 564.00 Constipation 12/23/2010 KELLY DO, CAMILLA K 564.00 Constipation 12/23/2010 564.00 Constipation 12/23/2010 564.00 Constipation 12/23/2010 KELLY DO, CAMILLA K 564.00 Constipation 12/23/2010 KELLY DO, CAMILLA K 564.00 Constipation 12/23/2010 KELLY DO, CAMILLA K 564.00 Constipation 12/23/2010 KATRINA HAZEL APRN 564.00 Constipation 12/23/2010 WAYNE CLARK APRN A 564.00 Constipation 12/23/2010 MOIRA CLARK APRNIDI A 564.00 Constipation 12/23/2010 HERMILO VERDUGO APRN T 564.00 Constipation 12/23/2010 VERONICA CARY MD 564.00 Constipation 12/23/2010 HERMILO VERDUGO APRN T 564.00 Constipation 12/23/2010 VERONICA CARY MD 564.00 Constipation 12/23/2010 HERMILO VERDUGO APRN 564.00 Constipation 12/23/2010 HERMILO VERDUGO APRN 564.00 Constipation 12/23/2010 ENRIQUE CHAVEZ APRN R 564.00 Constipation 12/23/2010 VERONICA CARY MD 564.00 Constipation 12/23/2010 HERMILO VERDUGO APRN 564.00 Constipation 12/23/2010 KARTIK MANAGER CCU, HERMILO T 564.00 Constipation 12/23/2010 KARTIK JASSO HERMILO T 564.00 Constipation 12/23/2010 KARTIK LOUISA HERMILO T 564.00 Constipation 12/23/2010 KARTIK MANAGER CCU HERMILO T 564.00 Constipation 01/20/2011 300.00 ANXIETY UNSPEC 01/20/2011 368.9 Unspecified Visual Disturbance 01/20/2011 KELLY DO, CAMILLA K 300.00 ANXIETY UNSPEC 01/20/2011 KELLY DO, CAMILLA K 368.9 Unspecified Visual Disturbance 01/20/2011 300.00 ANXIETY UNSPEC 01/20/2011 368.9 Unspecified Visual Disturbance 01/20/2011 300.00 ANXIETY UNSPEC 01/20/2011 368.9 Unspecified Visual Disturbance 01/20/2011 KELLY DO, CAMILLA K 300.00 ANXIETY UNSPEC 01/20/2011 KELLY DO, CAMILLA K 368.9 Unspecified Visual Disturbance 01/20/2011 KELLY DO, CAMILLA K 300.00 ANXIETY UNSPEC 01/20/2011 KELLY DO, CAMILLA K 368.9 Unspecified Visual Disturbance 01/20/2011 300.00 ANXIETY UNSPEC 01/20/2011 368.9 Unspecified Visual Disturbance 01/20/2011 300.00 ANXIETY UNSPEC 01/20/2011 368.9 Unspecified Visual Disturbance 01/20/2011 KELLY DO, CAMILLA K 300.00 ANXIETY UNSPEC 01/20/2011 KELLY DO, CAMILLA K 368.9 Unspecified Visual Disturbance 01/20/2011 KELLY DO, CAMILLA K 300.00 ANXIETY UNSPEC 01/20/2011 KELLY DO, CAMILLA K 368.9 Unspecified Visual Disturbance 01/20/2011 KELLY DO, CAMILLA K 300.00 ANXIETY UNSPEC 01/20/2011 KELLY DO, CAMILLA K 368.9 Unspecified Visual Disturbance 01/20/2011 RO CASHERO MANAGER CCU, KATRINA N 300.00 ANXIETY UNSPEC 01/20/2011 RO CASHERO MANAGER CCU, KATRINA N 368.9 Unspecified Visual Disturbance 01/20/2011 AMBER MANAGER CCU, WAYNE A 300.00 ANXIETY UNSPEC 01/20/2011 AMBER MANAGER CCU, WAYNE A 368.9 Unspecified Visual Disturbance 01/20/2011 AMBER MANAGER CCU, WAYNE A 300.00 ANXIETY UNSPEC 01/20/2011 AMBER MANAGER CCU, WAYNE A 368.9 Unspecified Visual Disturbance 01/20/2011 KARTIK MANAGER CCU, HERMILO T 300.00 ANXIETY UNSPEC 01/20/2011 HERMILO VERDUGO APRN T 368.9 Unspecified Visual Disturbance 01/20/2011 VERONICA CARY MD 300.00 ANXIETY UNSPEC 01/20/2011 VERONICA CARY MD 368.9 Unspecified Visual Disturbance 01/20/2011 HERMILO VERDUGO APRN T 300.00 ANXIETY UNSPEC 01/20/2011 HERMILO VERDUGO APRN T 368.9 Unspecified Visual Disturbance 01/20/2011 VERONICA CARY MD 300.00 ANXIETY UNSPEC 01/20/2011 VERONICA CARY MD 368.9 Unspecified Visual Disturbance 01/20/2011 HERMILO VERDUGO APRN T 300.00 ANXIETY UNSPEC 01/20/2011 HERMILO VERDUGO APRN T 368.9 Unspecified Visual Disturbance 01/20/2011 HERMILO VERDUGO APRN T 300.00 ANXIETY UNSPEC 01/20/2011 HERMILO VERDUGO APRN T 368.9 Unspecified Visual Disturbance 01/20/2011 ENRIQUE CHAVEZ APRN R 300.00 ANXIETY UNSPEC 01/20/2011 ENRIQUE CHAVEZ APRN R 368.9 Unspecified Visual Disturbance 01/20/2011 VERONICA CARY MD 300.00 ANXIETY UNSPEC 01/20/2011 VERONICA CARY MD 368.9 Unspecified Visual Disturbance 01/20/2011 HERMILO VERDUGO APRN T 300.00 ANXIETY UNSPEC 01/20/2011 HERMILO VERDUGO APRN T 368.9 Unspecified Visual Disturbance 01/20/2011 HERMILO VERDUGO APRN T 300.00 ANXIETY UNSPEC 01/20/2011 HERMILO VERDUGO APRN T 368.9 Unspecified Visual Disturbance 01/20/2011 HERMILO VERDUGO APRN T 300.00 ANXIETY UNSPEC 01/20/2011 HERMILO VERDUGO APRN T 368.9 Unspecified Visual Disturbance 01/20/2011 HERMILO VERDUGO APRN T 300.00 ANXIETY UNSPEC 01/20/2011 KARTIK MANAGER CCUHERMILO Rivera T 368.9 Unspecified Visual Disturbance 01/20/2011 HERMILO VERDUGO APRN T 300.00 ANXIETY UNSPEC 01/20/2011 HERMILO VERDUGO APRN T 368.9 Unspecified Visual Disturbance 01/21/2011 Ot 816.02 FX DIST PHALANX, HAND-CL 01/21/2011 Ot 883.0 OPEN WOUND OF FINGER 01/21/2011 Ot 959.5 FINGER INJURY NOS 01/21/2011 Ot E000.8 OTHER EXTERNAL CAUSE STATUS 01/21/2011 Ot E849.0 ACCIDENT IN HOME 01/21/2011 Ot E906.0 DOG BITE 02/02/2011 530.81 Gerd 02/02/2011 789.01 Abdominal Pain Right Upper Quadrant 02/02/2011 KELLY DO, CAMILLA K 530.81 Gerd 02/02/2011 KELLY DO, CAMILLA K 789.01 Abdominal Pain Right Upper Quadrant 02/02/2011 530.81 Gerd 02/02/2011 789.01 Abdominal Pain Right Upper Quadrant 02/02/2011 530.81 Gerd 02/02/2011 789.01 Abdominal Pain Right Upper Quadrant 02/02/2011 KELLY DO, CAMILLA K 530.81 Gerd 02/02/2011 KELLY DO, CAMILLA K 789.01 Abdominal Pain Right Upper Quadrant 02/02/2011 KELLY DO, CAMILLA K 530.81 Gerd 02/02/2011 KELLY DO, CAMILLA K 789.01 Abdominal Pain Right Upper Quadrant 02/02/2011 530.81 Gerd 02/02/2011 789.01 Abdominal Pain Right Upper Quadrant 02/02/2011 530.81 Gerd 02/02/2011 789.01 Abdominal Pain Right Upper Quadrant 02/02/2011 KELLY DO, CAMILLA K 530.81 Gerd 02/02/2011 KELLY DO, CAMILLA K 789.01 Abdominal Pain Right Upper Quadrant 02/02/2011 KELLY DO, CAMILLA K 530.81 Gerd 02/02/2011 KELLY DO, CAMILLA K 789.01 Abdominal Pain Right Upper Quadrant 02/02/2011 KELLY DO, CAMILLA K 530.81 Gerd 02/02/2011 KELLY DO, CAMILLA K 789.01 Abdominal Pain Right Upper Quadrant 02/02/2011 ROHELEN FRANCIS APRNCY N 530.81 Gerd 02/02/2011 ROPHYLLIS JOHN APRN, KATRINA N 789.01 Abdominal Pain Right Upper Quadrant 02/02/2011 AMBER APRN, WAYNE A 530.81 Gerd 02/02/2011 MOIRA CLARK APRNIDI A 789.01 Abdominal Pain Right Upper Quadrant 02/02/2011 AMBER JASSO, WAYNE A 530.81 Gerd 02/02/2011 AMBER JASSO, WAYNE A 789.01 Abdominal Pain Right Upper Quadrant 02/02/2011 HERMILO VERDUGO APRN 530.81 Gerd 02/02/2011 KARTIK MANAGER CCU, HERMILO T 789.01 Abdominal Pain Right Upper Quadrant 02/02/2011 VERONICA CARY MD 530.81 Gerd 02/02/2011 VERONICA CARY MD 789.01 Abdominal Pain Right Upper Quadrant 02/02/2011 HERMILO VERDUGO APRN T 530.81 Gerd 02/02/2011 HERMILO VERDUGO APRN T 789.01 Abdominal Pain Right Upper Quadrant 02/02/2011 VERONICA CARY MD 530.81 Gerd 02/02/2011 VERONICA CARY MD 789.01 Abdominal Pain Right Upper Quadrant 02/02/2011 HERMILO VERDUGO APRN T 530.81 Gerd 02/02/2011 HERMILO VERDUGO APRN T 789.01 Abdominal Pain Right Upper Quadrant 02/02/2011 HERMILO VERDUGO APRN T 530.81 Gerd 02/02/2011 HERMILO VERDUGO APRN T 789.01 Abdominal Pain Right Upper Quadrant 02/02/2011 ENRIQUE CHAVEZ APRN R 530.81 Gerd 02/02/2011 SCOTT JASSO ENRIQUE R 789.01 Abdominal Pain Right Upper Quadrant 02/02/2011 VERONICA CARY MD 530.81 Gerd 02/02/2011 VERONICA CARY MD 789.01 Abdominal Pain Right Upper Quadrant 02/02/2011 KARTIK JASSO HERMILO T 530.81 Gerd 02/02/2011 HERMILO VERDUGO APRN T 789.01 Abdominal Pain Right Upper Quadrant 02/02/2011 HERMILO VERDUGO APRN T 530.81 Gerd 02/02/2011 HERMILO VERDUGO APRN T 789.01 Abdominal Pain Right Upper Quadrant 02/02/2011 HERMILO VERDUGO APRN T 530.81 Gerd 02/02/2011 HERMILO VERDUGO APRN T 789.01 Abdominal Pain Right Upper Quadrant 02/02/2011 HERMILO VERDUGO APRN T 530.81 Gerd 02/02/2011 HERMILO VERDUGO APRN T 789.01 Abdominal Pain Right Upper Quadrant 02/02/2011 HERMILO VERDUGO APRN T 530.81 Gerd 02/02/2011 HERMILO VERDUGO APRN T 789.01 Abdominal Pain Right Upper Quadrant 03/02/2011 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 03/02/2011 535.50 Gastritis Unspec 03/02/2011 KELLY DOCAMILLA K 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 03/02/2011 KELLY DOCAMILLA K 535.50 Gastritis Unspec 03/02/2011 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 03/02/2011 535.50 Gastritis Unspec 03/02/2011 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 03/02/2011 535.50 Gastritis Unspec 03/02/2011 KELLY DO, CAMILLA K 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 03/02/2011 KELLY DO, CAMILLA K 535.50 Gastritis Unspec 03/02/2011 KELLY DO, CAMILLA K 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 03/02/2011 KELLY DO, CAMILLA K 535.50 Gastritis Unspec 03/02/2011 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 03/02/2011 535.50 Gastritis Unspec 03/02/2011 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 03/02/2011 535.50 Gastritis Unspec 03/02/2011 KELLY DO, CAMILLA K 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 03/02/2011 KELLY DO, CAMILLA K 535.50 Gastritis Unspec 03/02/2011 KELLY DO, CAMILLA K 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 03/02/2011 KELLY DO, CAMILLA K 535.50 Gastritis Unspec 03/02/2011 KELLY DO, CAMILLA K 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 03/02/2011 KELLY DO, CAMILLA K 535.50 Gastritis Unspec 03/02/2011 RO CASHERO MANAGER CCU, KATRINA N 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 03/02/2011 RO CASHERO MANAGER CCU, KATRINA N 535.50 Gastritis Unspec 03/02/2011 AMBER MANAGER CCU, WAYNE A 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 03/02/2011 AMBER MANAGER CCU, WAYNE A 535.50 Gastritis Unspec 03/02/2011 AMBER MANAGER CCU, WAYNE A 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 03/02/2011 AMBER JASSO WAYNE A 535.50 Gastritis Unspec 03/02/2011 HERMILO VERDUGO APRN 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 03/02/2011 HERMILO VERDUGO APRN 535.50 Gastritis Unspec 03/02/2011 VERONICA CARY MD 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 03/02/2011 VERONICA CARY MD 535.50 Gastritis Unspec 03/02/2011 HERMILO VERDUGO APRN 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 03/02/2011 HERMILO VERDUGO APRN 535.50 Gastritis Unspec 03/02/2011 VERONICA CARY MD 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 03/02/2011 VERONICA CARY MD 535.50 Gastritis Unspec 03/02/2011 HERMILO VERDUGO APRN 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 03/02/2011 HERMILO VERDUGO APRN 535.50 Gastritis Unspec 03/02/2011 HERMILO VERDUGO APRN 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 03/02/2011 HERMILO VERDUGO APRN T 535.50 Gastritis Unspec 03/02/2011 ENRIQUE CHAVEZ APRN R 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 03/02/2011 ENRIQUE CHAVEZ APRN R 535.50 Gastritis Unspec 03/02/2011 VERONICA CARY MD 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 03/02/2011 VERONICA CARY MD 535.50 Gastritis Unspec 03/02/2011 HERMILO VERDUGO APRN 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 03/02/2011 HERMILO VERDUGO APRN 535.50 Gastritis Unspec 03/02/2011 HERMILO VERDUGO APRN 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 03/02/2011 HERMILO VERDUGO APRN 535.50 Gastritis Unspec 03/02/2011 HERMILO VERDUGO APRN 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 03/02/2011 HERMILO VERDUGO APRN 535.50 Gastritis Unspec 03/02/2011 HERMILO VERDUGO APRN 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 03/02/2011 HERMILO VERDUGO APRN 535.50 Gastritis Unspec 03/02/2011 HERMILO VERDUGO APRN 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 03/02/2011 HERMILO VERDUGO APRN 535.50 Gastritis Unspec 03/04/2011 Ot 250.00 DIAB DALE WO COMPL, TYPE II OR UNSPEC TY 03/04/2011 Ot 272.4 HYPERLIPIDEMIA NEC/NOS 03/04/2011 Ot 278.00 OBESITY, NOS 03/04/2011 Ot 311 DEPRESSIVE DISORDER NEC 03/04/2011 Ot 401.9 HYPERTENSION NOS 03/04/2011 Ot 428.30 UNSPEC DIASTOLIC HRT FAILURE 03/04/2011 Ot 496 CHR AIRWAY OBSTRUCT NEC 03/04/2011 Ot 785.1 PALPITATIONS 03/04/2011 Ot 786.59 CHEST PAIN NEC 03/04/2011 Ot 794.30 ABN CARDIOVASC STUDY NOS 03/04/2011 Ot V17.49 FAMILY HISTORY OF OTHER CARDIOVASCULAR D 03/04/2011 Ot V45.77 ACQRD ABSENCE OF GENITAL ORGANS 03/04/2011 Ot V45.79 ACQRD ABSENCE OF OTH ORGAN 03/04/2011 Ot V58.69 OTH MED,LT,CURRENT USE 06/15/2011 Ot 491.21 OBSTR CHRONIC BRONCHITIS, W (ACUTE) EXAC 06/15/2011 Ot 786.07 WHEEZING 06/25/2011 599.0 Urinary Tract Infection 06/25/2011 KELLY DO, CAMILLA K 599.0 Urinary Tract Infection 06/25/2011 599.0 Urinary Tract Infection 06/25/2011 599.0 Urinary Tract Infection 06/25/2011 KELLY DO, CAMILLA K 599.0 Urinary Tract Infection 06/25/2011 KELLY DO, CAMILLA K 599.0 Urinary Tract Infection 06/25/2011 599.0 Urinary Tract Infection 06/25/2011 599.0 Urinary Tract Infection 06/25/2011 KELLY DO, CAMILLA K 599.0 Urinary Tract Infection 06/25/2011 KELLY DO, CAMILLA K 599.0 Urinary Tract Infection 06/25/2011 KELLY DO, CAMILLA K 599.0 Urinary Tract Infection 06/25/2011 KATRINA HAZEL APRN 599.0 Urinary Tract Infection 06/25/2011 WAYNE CLARK APRN A 599.0 Urinary Tract Infection 06/25/2011 WAYNE CLARK APRN A 599.0 Urinary Tract Infection 06/25/2011 HERMILO VERDUGO APRN 599.0 Urinary Tract Infection 06/25/2011 VERONICA CARY MD 599.0 Urinary Tract Infection 06/25/2011 HERMILO VERDUGO APRN 599.0 Urinary Tract Infection 06/25/2011 VERONICA CARY MD 599.0 Urinary Tract Infection 06/25/2011 HERMILO VERDUGO APRN 599.0 Urinary Tract Infection 06/25/2011 HERMILO VERDUGO APRN 599.0 Urinary Tract Infection 06/25/2011 ENRIQUE CHAVEZ APRN 599.0 Urinary Tract Infection 06/25/2011 VERONICA CARY MD 599.0 Urinary Tract Infection 06/25/2011 HERMILO VERDUGO APRN 599.0 Urinary Tract Infection 06/25/2011 HERMILO VERDUGO APRN 599.0 Urinary Tract Infection 06/25/2011 HERMILO VERDUGO APRN 599.0 Urinary Tract Infection 06/25/2011 HERMILO VERDUGO APRN 599.0 Urinary Tract Infection 06/25/2011 HERMILO VERDUGO APRN 599.0 Urinary Tract Infection 08/13/2011 788.41 URINARY FREQUENCY 08/13/2011 KELLY DO, CAMILLA K 788.41 URINARY FREQUENCY 08/13/2011 788.41 URINARY FREQUENCY 08/13/2011 788.41 URINARY FREQUENCY 08/13/2011 KELLY DO, CAMILLA K 788.41 URINARY FREQUENCY 08/13/2011 KELLY DO, CAMILLA K 788.41 URINARY FREQUENCY 08/13/2011 788.41 URINARY FREQUENCY 08/13/2011 788.41 URINARY FREQUENCY 08/13/2011 KELLY DO, CAMILLA K 788.41 URINARY FREQUENCY 08/13/2011 KELLY DO, CAMILLA K 788.41 URINARY FREQUENCY 08/13/2011 KELLY DO, CAMILLA K 788.41 URINARY FREQUENCY 08/13/2011 KATRINA HAZEL APRN 788.41 URINARY FREQUENCY 08/13/2011 WAYNE CLARK APRN 788.41 URINARY FREQUENCY 08/13/2011 WAYNE CLARK APRN A 788.41 URINARY FREQUENCY 08/13/2011 HERMILO VERDUGO APRN 788.41 URINARY FREQUENCY 08/13/2011 VERONICA CARY MD 788.41 URINARY FREQUENCY 08/13/2011 HERMILO VERDUGO APRN 788.41 URINARY FREQUENCY 08/13/2011 VERONICA CARY MD 788.41 URINARY FREQUENCY 08/13/2011 HERMILO VERDUGO APRN 788.41 URINARY FREQUENCY 08/13/2011 HERMILO VERDUGO APRN 788.41 URINARY FREQUENCY 08/13/2011 ENRIQUE CHAVEZ APRN 788.41 URINARY FREQUENCY 08/13/2011 VERONICA CARY MD 788.41 URINARY FREQUENCY 08/13/2011 HERMILO VERDUGO APRN 788.41 URINARY FREQUENCY 08/13/2011 HERMILO VERDUGO APRN 788.41 URINARY FREQUENCY 08/13/2011 HERMILO VERDUGO APRN 788.41 URINARY FREQUENCY 08/13/2011 HERMILO VERDUGO APRN 788.41 URINARY FREQUENCY 08/13/2011 HERMILO VERDUGO APRN 788.41 URINARY FREQUENCY 10/09/2011 692.9 DERMATITIS CONTACT UNSPECIFIED 10/09/2011 V72.31 EXTRUDER OPERATOR HELPER EXAM, ROUTINE 10/09/2011 V76.10 BREAST CANCER SCREENING 10/09/2011 GREYSON KELLY DOA K 692.9 DERMATITIS CONTACT UNSPECIFIED 10/09/2011 KELLY DO CAMILLA K V72.31 EXTRUDER OPERATOR HELPER EXAM, ROUTINE 10/09/2011 KELLY DO CAMILLA K V76.10 BREAST CANCER SCREENING 10/09/2011 692.9 DERMATITIS CONTACT UNSPECIFIED 10/09/2011 V72.31 EXTRUDER OPERATOR HELPER EXAM, ROUTINE 10/09/2011 V76.10 BREAST CANCER SCREENING 10/09/2011 692.9 DERMATITIS CONTACT UNSPECIFIED 10/09/2011 V72.31 EXTRUDER OPERATOR HELPER EXAM, ROUTINE 10/09/2011 V76.10 BREAST CANCER SCREENING 10/09/2011 KELLY DO CAMILLA K 692.9 DERMATITIS CONTACT UNSPECIFIED 10/09/2011 KELLY DO CAMILLA K V72.31 EXTRUDER OPERATOR HELPER EXAM, ROUTINE 10/09/2011 KELLY DO CAMILLA K V76.10 BREAST CANCER SCREENING 10/09/2011 KELLY DO CAMILLA K 692.9 Dermatitis Contact Unspecified 10/09/2011 KELLY DO CAMILLA K V72.31 EXTRUDER OPERATOR HELPER EXAM, ROUTINE 10/09/2011 KELLY DO CAMILLA K V76.10 BREAST CANCER SCREENING 10/09/2011 692.9 Dermatitis Contact Unspecified 10/09/2011 V72.31 EXTRUDER OPERATOR HELPER EXAM, ROUTINE 10/09/2011 V76.10 BREAST CANCER SCREENING 10/09/2011 692.9 Dermatitis Contact Unspecified 10/09/2011 V72.31 EXTRUDER OPERATOR HELPER EXAM, ROUTINE 10/09/2011 V76.10 BREAST CANCER SCREENING 10/09/2011 KELLY DO CAMILLA K 692.9 Dermatitis Contact Unspecified 10/09/2011 KELLY DO CAMILLA K V72.31 EXTRUDER OPERATOR HELPER EXAM, ROUTINE 10/09/2011 KELLY DO CAMILLA K V76.10 BREAST CANCER SCREENING 10/09/2011 KELLY DO CAMILLA K 692.9 Dermatitis Contact Unspecified 10/09/2011 KELLY DO CAMILLA K V72.31 EXTRUDER OPERATOR HELPER EXAM, ROUTINE 10/09/2011 KELLY DO CAMILLA K V76.10 BREAST CANCER SCREENING 10/09/2011 KELLY DO CAMILLA K 692.9 Dermatitis Contact Unspecified 10/09/2011 KELLY DO, CAMILLA K V72.31 EXTRUDER OPERATOR HELPER EXAM, ROUTINE 10/09/2011 KELLY DO CAMILLA K V76.10 BREAST CANCER SCREENING 10/09/2011 KATRINA HAZEL APRN 692.9 Dermatitis Contact Unspecified 10/09/2011 RO DARONKATRINA GOMEZ APRN N V72.31 EXTRUDER OPERATOR HELPER EXAM, ROUTINE 10/09/2011 RO DORA LOUISA KATRINA N V76.10 BREAST CANCER SCREENING 10/09/2011 WAYNE CLARK APRN A 692.9 Dermatitis Contact Unspecified 10/09/2011 AMBERWAYNE Rivera APRN A V72.31 EXTRUDER OPERATOR HELPER EXAM, ROUTINE 10/09/2011 AMBERWAYNE TOMLINSON APRN A V76.10 BREAST CANCER SCREENING 10/09/2011 AMBERWAYNE Rivera APRN A 692.9 Dermatitis Contact Unspecified 10/09/2011 AMBERWAYNE Rivera APRN A V72.31 EXTRUDER OPERATOR HELPER EXAM, ROUTINE 10/09/2011 WAYNE CLARK APRN A V76.10 BREAST CANCER SCREENING 10/09/2011 HERMILO VERDUGO APRN 692.9 Dermatitis Contact Unspecified 10/09/2011 HERMILO VERDUGO APRN V72.31 EXTRUDER OPERATOR HELPER EXAM, ROUTINE 10/09/2011 HERMILO VERDUGO APRN V76.10 BREAST CANCER SCREENING 10/09/2011 VERONICA CARY MD 692.9 Dermatitis Contact Unspecified 10/09/2011 VERONICA CARY MD V72.31 EXTRUDER OPERATOR HELPER EXAM, ROUTINE 10/09/2011 VERONICA CARY MD V76.10 BREAST CANCER SCREENING 10/09/2011 HERMILO VERDUGO APRN 692.9 Dermatitis Contact Unspecified 10/09/2011 HERMILO VERDUGO APRN V72.31 EXTRUDER OPERATOR HELPER EXAM, ROUTINE 10/09/2011 HERMILO VERDUGO APRN V76.10 BREAST CANCER SCREENING 10/09/2011 VERONICA CARY MD 692.9 Dermatitis Contact Unspecified 10/09/2011 VERONICA CARY MD V72.31 EXTRUDER OPERATOR HELPER EXAM, ROUTINE 10/09/2011 VERONICA CARY MD V76.10 BREAST CANCER SCREENING 10/09/2011 HERMILO VERDUGO APRN 692.9 Dermatitis Contact Unspecified 10/09/2011 HERMILO VERDUGO APRN V72.31 EXTRUDER OPERATOR HELPER EXAM, ROUTINE 10/09/2011 HERMILO VERDUGO APRN V76.10 BREAST CANCER SCREENING 10/09/2011 HERMILO VERDUGO APRN 692.9 Dermatitis Contact Unspecified 10/09/2011 HERMILO VERDUGO APRN V72.31 EXTRUDER OPERATOR HELPER EXAM, ROUTINE 10/09/2011 HERMILO VERDUGO APRN V76.10 BREAST CANCER SCREENING 10/09/2011 ENRIQUE CHAVEZ APRN R 692.9 Dermatitis Contact Unspecified 10/09/2011 ENRIQUE CHAVEZ APRN R V72.31 EXTRUDER OPERATOR HELPER EXAM, ROUTINE 10/09/2011 ENRIQUE CHAVEZ APRN R V76.10 BREAST CANCER SCREENING 10/09/2011 VERONICA CARY MD 692.9 Dermatitis Contact Unspecified 10/09/2011 VERONICA CARY MD V72.31 EXTRUDER OPERATOR HELPER EXAM, ROUTINE 10/09/2011 VERONICA CARY MD V76.10 BREAST CANCER SCREENING 10/09/2011 HERMILO VERDUGO APRN 692.9 Dermatitis Contact Unspecified 10/09/2011 HERMILO VERDUGO APRN V72.31 EXTRUDER OPERATOR HELPER EXAM, ROUTINE 10/09/2011 HERMILO VERDUGO APRN V76.10 BREAST CANCER SCREENING 10/09/2011 HERMILO VERDUGO APRN 692.9 Dermatitis Contact Unspecified 10/09/2011 HERMILO VERDUGO APRN V72.31 EXTRUDER OPERATOR HELPER EXAM, ROUTINE 10/09/2011 HERMILO VERDUGO APRN V76.10 BREAST CANCER SCREENING 10/09/2011 HERMILO VERDUGO APRN 692.9 Dermatitis Contact Unspecified 10/09/2011 HERMILO VERDUGO APRN V72.31 EXTRUDER OPERATOR HELPER EXAM, ROUTINE 10/09/2011 HERMILO VERDUGO APRN V76.10 BREAST CANCER SCREENING 10/09/2011 HERMILO VERDUGO APRN 692.9 Dermatitis Contact Unspecified 10/09/2011 HERMILO VERDUGO APRN V72.31 EXTRUDER OPERATOR HELPER EXAM, ROUTINE 10/09/2011 HERMILO VERDUGO APRN V76.10 BREAST CANCER SCREENING 10/09/2011 HERMILO VERDUGO APRN 692.9 Dermatitis Contact Unspecified 10/09/2011 HERMILO VERDUGO APRN V72.31 EXTRUDER OPERATOR HELPER EXAM, ROUTINE 10/09/2011 HERMILO VERDUGO APRN V76.10 BREAST CANCER SCREENING 11/25/2011 Ot 518.89 OTHER DISEASES OF LUNG, NEC 11/25/2011 Ot 571.8 CHRONIC LIVER DIS NEC 11/25/2011 Ot 789.09 ABDOMINAL PAIN, OTHER SPECIFIED SITE 12/07/2011 616.2 Cyst Of [place] 12/07/2011 682.9 Cellulitis And Abscess Of Unspecified Sites 12/07/2011 KELLY DO, CAMILLA K 616.2 Cyst Of [place] 12/07/2011 KELLY DO, CAMILLA K 682.9 Cellulitis And Abscess Of Unspecified Sites 12/07/2011 616.2 Cyst Of [place] 12/07/2011 682.9 Cellulitis And Abscess Of Unspecified Sites 12/07/2011 616.2 Cyst Of [place] 12/07/2011 682.9 Cellulitis And Abscess Of Unspecified Sites 12/07/2011 KELLY DO, CAMILLA K 616.2 Cyst Of [place] 12/07/2011 KELLY DO, CAMILLA K 682.9 Cellulitis And Abscess Of Unspecified Sites 12/07/2011 KELLY DO, CAMILLA K 616.2 Cyst Of [place] 12/07/2011 KELLY DO, CAMILLA K 682.9 Cellulitis And Abscess Of Unspecified Sites 12/07/2011 616.2 Cyst Of [place] 12/07/2011 682.9 Cellulitis And Abscess Of Unspecified Sites 12/07/2011 616.2 Cyst Of [place] 12/07/2011 682.9 Cellulitis And Abscess Of Unspecified Sites 12/07/2011 KELLY DO, CAMILLA K 616.2 Cyst Of [place] 12/07/2011 KELLY DO, CAMILLA K 682.9 Cellulitis And Abscess Of Unspecified Sites 12/07/2011 KELLY DO, CAMILLA K 616.2 Cyst Of [place] 12/07/2011 KELLY DO, CAMILLA K 682.9 Cellulitis And Abscess Of Unspecified Sites 12/07/2011 KELLY DO, CAMILLA K 616.2 Cyst Of [place] 12/07/2011 KELLY DO, CAMILLA K 682.9 Cellulitis And Abscess Of Unspecified Sites 12/07/2011 KATRINA HAZEL APRN N 616.2 Cyst Of [place] 12/07/2011 KATRINA HAZEL APRN N 682.9 Cellulitis And Abscess Of Unspecified Sites 12/07/2011 WAYNE CLARK APRN A 616.2 Cyst Of [place] 12/07/2011 WAYNE CLARK APRN A 682.9 Cellulitis And Abscess Of Unspecified Sites 12/07/2011 AWYNE CLARK APRN 616.2 Cyst Of [place]land 12/07/2011 WAYNE CLARK APRN 682.9 Cellulitis And Abscess Of Unspecified Sites 12/07/2011 HERMILO VERDUGO APRN 616.2 Cyst Of [place] 12/07/2011 HERMILO VERDUGO APRN 682.9 Cellulitis And Abscess Of Unspecified Sites 12/07/2011 VERONICA CARY MD 616.2 Cyst Of [place] 12/07/2011 VERONICA CARY MD 682.9 Cellulitis And Abscess Of Unspecified Sites 12/07/2011 HERMILO VERDUGO APRN 616.2 Cyst Of [place] 12/07/2011 HERMILO VERDUGO APRN 682.9 Cellulitis And Abscess Of Unspecified Sites 12/07/2011 VERONICA CARY MD 616.2 Cyst Of [place] 12/07/2011 VERONICA CARY MD2.9 Cellulitis And Abscess Of Unspecified Sites 12/07/2011 HERMILO VERDUGO APRN 616.2 Cyst Of [place] 12/07/2011 HERMILO VERDUGO APRN 682.9 Cellulitis And Abscess Of Unspecified Sites 12/07/2011 HERMILO VERDUGO APRN 616.2 Cyst Of [place] 12/07/2011 HERMILO VERDUGO APRN 682.9 Cellulitis And Abscess Of Unspecified Sites 12/07/2011 ENRIQUE CHAVEZ APRN R 616.2 Cyst Of [place]'s [place]land 12/07/2011 ENRIQUE CHAVEZ APRN R 682.9 Cellulitis And Abscess Of Unspecified Sites 12/07/2011 VERONICA CARY MD 616.2 Cyst Of [place] 12/07/2011 VERONICA CARY MD2.9 Cellulitis And Abscess Of Unspecified Sites 12/07/2011 HERMILO VERDUGO APRN 616.2 Cyst Of [place] Gland 12/07/2011 HERMILO VERDUGO APRN 682.9 Cellulitis And Abscess Of Unspecified Sites 12/07/2011 HERMILO VERDUGO APRN 616.2 Cyst Of [place]land 12/07/2011 HERMILO VERDUGO APRN 682.9 Cellulitis And Abscess Of Unspecified Sites 12/07/2011 HERMLIO VERDUGO APRN 616.2 Cyst Of [place]land 12/07/2011 HERMILO VERDUGO APRN 682.9 Cellulitis And Abscess Of Unspecified Sites 12/07/2011 HERMILO VERDUGO APRN 616.2 Cyst Of [place] 12/07/2011 HERMILO VERDUGO APRN 682.9 Cellulitis And Abscess Of Unspecified Sites 12/07/2011 HERMILO VERDUGO APRN 616.2 Cyst Of [place] 12/07/2011 HERMILO VERDUGO APRN 682.9 Cellulitis And Abscess Of Unspecified Sites 01/28/2012 586 RENAL FAILURE UNSPECIFIED 01/28/2012 GREYSON KELLY DOA K 586 RENAL FAILURE UNSPECIFIED 01/28/2012 586 RENAL FAILURE UNSPECIFIED 01/28/2012 586 RENAL FAILURE UNSPECIFIED 01/28/2012 GREYSON KELLY DOA K 586 UREMIA 01/28/2012 KELLY DO CAMILLA K 586 UREMIA 01/28/2012 586 UREMIA 01/28/2012 586 UREMIA 01/28/2012 KELLY DOGREYSONA K 586 UREMIA 01/28/2012 KELLY DO [place] K 586 UREMIA 01/28/2012 KELLY DO, CAMILLA K 586 UREMIA 01/28/2012 KATRINA HAZEL APRN 586 UREMIA 01/28/2012 AMBER JASSO, WAYNE A 586 UREMIA 01/28/2012 WAYNE CLARK APRN A 586 UREMIA 01/28/2012 HERMILO VERDUGO APRN 586 UREMIA 01/28/2012 VERONICA CARY MD 586 UREMIA 01/28/2012 HERMILO VERDUGO APRN 586 UREMIA 01/28/2012 VERONICA CARY MD 586 UREMIA 01/28/2012 HERMILO VERDUGO APRN 586 UREMIA 01/28/2012 HERMILO VERDUGO APRN 586 UREMIA 01/28/2012 ENRIQUE CHAVEZ APRN 586 UREMIA 01/28/2012 VERONICA CARY MD 586 UREMIA 01/28/2012 HERMILO VERDUGO APRN 586 UREMIA 01/28/2012 HERMILO VERDUGO APRN 586 UREMIA 01/28/2012 HERMILO VERDUGO APRN 586 UREMIA 01/28/2012 HERMILO VERDUGO APRN 586 UREMIA 01/28/2012 HERMILO VERDUGO APRN 586 UREMIA 02/23/2012 599.0 URINARY TRACT INFECTION 02/23/2012 KELLY DO, CAMILLA K 599.0 URINARY TRACT INFECTION 02/23/2012 599.0 URINARY TRACT INFECTION 02/23/2012 599.0 URINARY TRACT INFECTION 02/23/2012 KELLY DO, CAMILLA K 599.0 URINARY TRACT INFECTION 02/23/2012 KELLY DO, CAMILLA K 599.0 URINARY TRACT INFECTION 02/23/2012 599.0 URINARY TRACT INFECTION 02/23/2012 599.0 URINARY TRACT INFECTION 02/23/2012 KELLY DO, CAMILLA K 599.0 URINARY TRACT INFECTION 02/23/2012 KELLY DO, CAMILLA K 599.0 URINARY TRACT INFECTION 02/23/2012 KELLY DO, CAMILLA K 599.0 URINARY TRACT INFECTION 02/23/2012 KATRINA HAZEL APRN N 599.0 URINARY TRACT INFECTION 02/23/2012 WAYNE CLARK APRN A 599.0 URINARY TRACT INFECTION 02/23/2012 MOIRA CLARK APRNIDI A 599.0 URINARY TRACT INFECTION 02/23/2012 HERMILO VERDUGO APRN 599.0 URINARY TRACT INFECTION 02/23/2012 VERONICA CARY MD 599.0 URINARY TRACT INFECTION 02/23/2012 HERMILO VERDUGO APRN 599.0 URINARY TRACT INFECTION 02/23/2012 VERONICA CARY MD 599.0 URINARY TRACT INFECTION 02/23/2012 HERMILO VERDUGO APRN 599.0 URINARY TRACT INFECTION 02/23/2012 HERMILO VERDUGO APRN 599.0 URINARY TRACT INFECTION 02/23/2012 ENRIQUE CHAVEZ APRN 599.0 URINARY TRACT INFECTION 02/23/2012 VERONICA CARY MD 599.0 URINARY TRACT INFECTION 02/23/2012 HERMILO VERDUGO APRN 599.0 URINARY TRACT INFECTION 02/23/2012 HERMILO VERDUGO APRN 599.0 URINARY TRACT INFECTION 02/23/2012 HERMILO VERDUGO APRN 599.0 URINARY TRACT INFECTION 02/23/2012 HERMILO VERDUGO APRN 599.0 URINARY TRACT INFECTION 02/23/2012 HERMILO VERDUGO APRN 599.0 URINARY TRACT INFECTION 04/08/2012 Ot 782.1 NONSPECIF SKIN ERUPT NEC 04/08/2012 Ot 995.1 ANGIONEUROTIC EDEMA 04/08/2012 Ot 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 04/11/2012 995.3 ALLERGY UNSPECIFIED NOT ELSEWHERE CLASSIFIED 04/11/2012 KELLY DO, CAMILLA K 995.3 ALLERGY UNSPECIFIED NOT ELSEWHERE CLASSIFIED 04/11/2012 995.3 ALLERGY UNSPECIFIED NOT ELSEWHERE CLASSIFIED 04/11/2012 995.3 ALLERGY UNSPECIFIED NOT ELSEWHERE CLASSIFIED 04/11/2012 KELLY DO, CAMILLA K 995.3 ALLERGY UNSPECIFIED NOT ELSEWHERE CLASSIFIED 04/11/2012 KELLY DO, CAMILLA K 995.3 ALLERGY UNSPECIFIED NOT ELSEWHERE CLASSIFIED 04/11/2012 995.3 ALLERGY UNSPECIFIED NOT ELSEWHERE CLASSIFIED 04/11/2012 995.3 ALLERGY UNSPECIFIED NOT ELSEWHERE CLASSIFIED 04/11/2012 KELLY DO, ACMILLA K 995.3 ALLERGY UNSPECIFIED NOT ELSEWHERE CLASSIFIED 04/11/2012 KELLY DO, CAMILLA K 995.3 ALLERGY UNSPECIFIED NOT ELSEWHERE CLASSIFIED 04/11/2012 KELLY DO, CAMILLA K 995.3 ALLERGY UNSPECIFIED NOT ELSEWHERE CLASSIFIED 04/11/2012 KATRINA HAZEL APRN N 995.3 ALLERGY UNSPECIFIED NOT ELSEWHERE CLASSIFIED 04/11/2012 WAYNE CLARK APRN A 995.3 ALLERGY UNSPECIFIED NOT ELSEWHERE CLASSIFIED 04/11/2012 WAYNE CLARK APRN A 995.3 ALLERGY UNSPECIFIED NOT ELSEWHERE CLASSIFIED 04/11/2012 HERMILO VERDUGO APRN 995.3 ALLERGY UNSPECIFIED NOT ELSEWHERE CLASSIFIED 04/11/2012 VERONICA CARY MD 995.3 ALLERGY UNSPECIFIED NOT ELSEWHERE CLASSIFIED 04/11/2012 HERMILO VERDUGO APRN 995.3 ALLERGY UNSPECIFIED NOT ELSEWHERE CLASSIFIED 04/11/2012 VERONICA CARY MD 995.3 ALLERGY UNSPECIFIED NOT ELSEWHERE CLASSIFIED 04/11/2012 HERMILO VERDUGO APRN 995.3 ALLERGY UNSPECIFIED NOT ELSEWHERE CLASSIFIED 04/11/2012 HERMILO VERDUGO APRN 995.3 ALLERGY UNSPECIFIED NOT ELSEWHERE CLASSIFIED 04/11/2012 ENRIQUE CHAVEZ APRN 995.3 ALLERGY UNSPECIFIED NOT ELSEWHERE CLASSIFIED 04/11/2012 VERONICA CARY MD 995.3 ALLERGY UNSPECIFIED NOT ELSEWHERE CLASSIFIED 04/11/2012 HERMILO VERDUGO APRN 995.3 ALLERGY UNSPECIFIED NOT ELSEWHERE CLASSIFIED 04/11/2012 HERMILO VERDUGO APRN 995.3 ALLERGY UNSPECIFIED NOT ELSEWHERE CLASSIFIED 04/11/2012 HERMILO VERDUGO APRN 995.3 ALLERGY UNSPECIFIED NOT ELSEWHERE CLASSIFIED 04/11/2012 HERMILO VERDUGO APRN 995.3 ALLERGY UNSPECIFIED NOT ELSEWHERE CLASSIFIED 04/11/2012 HERMILO VERDUGO APRN 995.3 ALLERGY UNSPECIFIED NOT ELSEWHERE CLASSIFIED 05/12/2012 KELLY DO, CAMILLA K 112.1 CANDIDIASIS VAGINAL 05/12/2012 112.1 CANDIDIASIS VAGINAL 05/12/2012 112.1 CANDIDIASIS VAGINAL 05/12/2012 KELLY DO, CAMILLA K 112.1 CANDIDIASIS VAGINAL 05/12/2012 KELLY DO, CAMILLA K 112.1 Candidiasis Vaginal 05/12/2012 112.1 Candidiasis Vaginal 05/12/2012 112.1 Candidiasis Vaginal 05/12/2012 KELLY DO, CAMILLA K 112.1 Candidiasis Vaginal 05/12/2012 KELLY DO, CAMILLA K 112.1 Candidiasis Vaginal 05/12/2012 KELLY DO, CAMILLA K 112.1 Candidiasis Vaginal 05/12/2012 HELEN HAZEL APRNCY N 112.1 Candidiasis Vaginal 05/12/2012 AMBER JASSO WAYNE A 112.1 Candidiasis Vaginal 05/12/2012 AMBER JASSO WAYNE A 112.1 Candidiasis Vaginal 05/12/2012 HERMILO VERDUGO APRN 112.1 Candidiasis Vaginal 05/12/2012 VERONICA CARY MD 112.1 Candidiasis Vaginal 05/12/2012 HERMILO VERDUGO APRN 112.1 Candidiasis Vaginal 05/12/2012 VERONICA CARY MD 112.1 Candidiasis Vaginal 05/12/2012 HERMILO VERDUGO APRN 112.1 Candidiasis Vaginal 05/12/2012 HERMILO VERDUGO APRN 112.1 Candidiasis Vaginal 05/12/2012 SCOTT JASSO ENRIQUE R 112.1 Candidiasis Vaginal 05/12/2012 VERONICA CARY MD 112.1 Candidiasis Vaginal 05/12/2012 HERMILO VERDUGO APRN 112.1 Candidiasis Vaginal 05/12/2012 HERMILO VERDUGO APRN 112.1 Candidiasis Vaginal 05/12/2012 HERMILO VERDUGO APRN 112.1 Candidiasis Vaginal 05/12/2012 HERMILO VERDUGO APRN 112.1 Candidiasis Vaginal 05/12/2012 HERMILO VERDUGO APRN 112.1 Candidiasis Vaginal 08/18/2012 CAMILLA KELLY DO 461.9 SINUSITIS ACUTE 08/18/2012 CAMILLA KELLY DO K 709.9 skin lesion [Sx] 08/18/2012 CAMILLA KELLY DO V70.0 Preventive Medicine Estab Patient Checkup Adult 40-64 08/18/2012 CAMILLA KELLY DO 461.9 Sinusitis Acute 08/18/2012 CAMILLA KELLY DO K 709.9 skin lesion [Sx] 08/18/2012 CAMILLA KELLY DO V70.0 Preventive Medicine Estab Patient Checkup Adult 40-64 08/18/2012 461.9 Sinusitis Acute 08/18/2012 709.9 skin lesion [Sx] 08/18/2012 V70.0 Preventive Medicine Estab Patient Checkup Adult 40-64 08/18/2012 461.9 Sinusitis Acute 08/18/2012 709.9 SKIN LESION [SX] 08/18/2012 V70.0 PREVENTIVE MEDICINE ESTAB PATIENT CHECKUP ADULT 40-64 08/18/2012 CAMILLA KELLY DO 461.9 Sinusitis Acute 08/18/2012 CAMILLA KELLY DO 709.9 SKIN LESION [SX] 08/18/2012 CAMILLA KELLY DO K V70.0 PREVENTIVE MEDICINE ESTAB PATIENT CHECKUP ADULT 40-64 08/18/2012 CAMILLA KELLY DO 461.9 Sinusitis Acute 08/18/2012 CAMILLA KELLY DO K 709.9 SKIN LESION [SX] 08/18/2012 GREYSON KELLY DOA K V70.0 PREVENTIVE MEDICINE ESTAB PATIENT CHECKUP ADULT 40-64 08/18/2012 CAMILLA KELLY DO 461.9 Sinusitis Acute 08/18/2012 CAMILLA KELLY DO K 709.9 SKIN LESION [SX] 08/18/2012 GREYSON KELLY DOA K V70.0 PREVENTIVE MEDICINE ESTAB PATIENT CHECKUP ADULT 40-64 08/18/2012 KATRINA HAZEL APRN 461.9 Sinusitis Acute 08/18/2012 KATRINA HAZEL APRN N 709.9 SKIN LESION [SX] 08/18/2012 KATRINA HAZEL APRN N V70.0 PREVENTIVE MEDICINE ESTAB PATIENT CHECKUP ADULT 40-64 08/18/2012 AMBER MANAGER CCU, WAYNE A 461.9 Sinusitis Acute 08/18/2012 AMBER MARINELLIN, WAYNE A 709.9 SKIN LESION [SX] 08/18/2012 AMBER MARINELLINicole WAYNE A V70.0 PREVENTIVE MEDICINE ESTAB PATIENT CHECKUP ADULT 40-64 08/18/2012 AMBER JASSO, WAYNE A 461.9 Sinusitis Acute 08/18/2012 AMBER MARINELLIN, WAYNE A 709.9 SKIN LESION [SX] 08/18/2012 AMBER MARINELLINMOIRAWAYNE A V70.0 PREVENTIVE MEDICINE ESTAB PATIENT CHECKUP ADULT 40-64 08/18/2012 HERMILO VERDUGO APRN 461.9 Sinusitis Acute 08/18/2012 HERMILO VERDUGO APRN 709.9 SKIN LESION [SX] 08/18/2012 HERMILO VERDUGO APRN V70.0 PREVENTIVE MEDICINE ESTAB PATIENT CHECKUP ADULT 40-64 08/18/2012 VERONICA CARY MD 461.Gabbie Sinusitis Acute 08/18/2012 VERONICA CARY MD 709.9 SKIN LESION [SX] 08/18/2012 VERONICA CARY MD V70.0 PREVENTIVE MEDICINE ESTAB PATIENT CHECKUP ADULT 40-64 08/18/2012 HREMILO VERDUGO APRN 461.9 Sinusitis Acute 08/18/2012 HERMILO VERDUGO APRN 709.9 SKIN LESION [SX] 08/18/2012 HERMILO VERDUGO APRN V70.0 PREVENTIVE MEDICINE ESTAB PATIENT CHECKUP ADULT 40-64 08/18/2012 VERONICA CARY MD 461.Gabbie Sinusitis Acute 08/18/2012 VERONICA CARY MD 709.9 SKIN LESION [SX] 08/18/2012 VERONICA CARY MD V70.0 PREVENTIVE MEDICINE ESTAB PATIENT CHECKUP ADULT 40-64 08/18/2012 HERMILO VERDUGO APRN 461.9 Sinusitis Acute 08/18/2012 HERMILO VERDUGO APRN 709.9 SKIN LESION [SX] 08/18/2012 HERMILO VERDUGO APRN V70.0 PREVENTIVE MEDICINE ESTAB PATIENT CHECKUP ADULT 40-64 08/18/2012 HERMILO VERDUGO APRN 461.9 Sinusitis Acute 08/18/2012 HERMILO VERDUGO APRN 709.9 SKIN LESION [SX] 08/18/2012 HERMILO VERDUGO APRN V70.0 PREVENTIVE MEDICINE ESTAB PATIENT CHECKUP ADULT 40-64 08/18/2012 ENRIQUE CHAVEZ APRN R 461.9 Sinusitis Acute 08/18/2012 ENRIQUE CHAVEZ APRN R 709.9 SKIN LESION [SX] 08/18/2012 ENRIQUE CHAVEZ APRN R V70.0 PREVENTIVE MEDICINE ESTAB PATIENT CHECKUP ADULT 40-64 08/18/2012 VERONICA CARY MD 461.9 Sinusitis Acute 08/18/2012 VERONICA CARY MD 709.9 SKIN LESION [SX] 08/18/2012 VERONICA CARY MD V70.0 PREVENTIVE MEDICINE ESTAB PATIENT CHECKUP ADULT 40-64 08/18/2012 HERMILO VERDUGO APRN 461.9 Sinusitis Acute 08/18/2012 HERMILO VERDUGO APRN 709.9 SKIN LESION [SX] 08/18/2012 HERMILO VERDUGO APRN V70.0 PREVENTIVE MEDICINE ESTAB PATIENT CHECKUP ADULT 40-64 08/18/2012 HERMILO VERDUGO APRN 461.9 Sinusitis Acute 08/18/2012 HERMILO VERDUGO APRN 709.9 SKIN LESION [SX] 08/18/2012 HERMILO VERDUGO APRN V70.0 PREVENTIVE MEDICINE ESTAB PATIENT CHECKUP ADULT 40-64 08/18/2012 HERMILO VERDUGO APRN 461.9 Sinusitis Acute 08/18/2012 HERMILO VERDUGO APRN 709.9 SKIN LESION [SX] 08/18/2012 HERMILO VERDUGO APRN V70.0 PREVENTIVE MEDICINE ESTAB PATIENT CHECKUP ADULT 40-64 08/18/2012 HERMILO VERDUGO APRN 461.9 Sinusitis Acute 08/18/2012 HERMILO VERDUOG APRN 709.9 SKIN LESION [SX] 08/18/2012 HERMILO VERDUGO APRN V70.0 PREVENTIVE MEDICINE ESTAB PATIENT CHECKUP ADULT 40-64 08/18/2012 HERMILO VERDUGO APRN 461.9 Sinusitis Acute 08/18/2012 HERMILO VERDUGO APRN 709.9 SKIN LESION [SX] 08/18/2012 HERMILO VERDUGO APRN V70.0 PREVENTIVE MEDICINE ESTAB PATIENT CHECKUP ADULT 40-64 09/05/2012 CAMILLA KELLY DO 466.0 ACUTE BRONCHITIS 09/05/2012 466.0 ACUTE BRONCHITIS 09/05/2012 466.0 ACUTE BRONCHITIS 09/05/2012 CAMILLA KELLY DO K 466.0 ACUTE BRONCHITIS 09/05/2012 CAMILLA KELLY DO K 466.0 ACUTE BRONCHITIS 09/05/2012 CAMILLA KELLY DO K 466.0 ACUTE BRONCHITIS 09/05/2012 JAYJAY JOHN MANAGER CCU, KATRINA N 466.0 ACUTE BRONCHITIS 09/05/2012 AMBER MANAGER CCU, WAYNE A 466.0 ACUTE BRONCHITIS 09/05/2012 AMBER MANAGER CCU, WAYNE A 466.0 ACUTE BRONCHITIS 09/05/2012 KARTIK JASSO, HERMILO T 466.0 ACUTE BRONCHITIS 09/05/2012 VERONICA CARY MD 466.0 ACUTE BRONCHITIS 09/05/2012 KARTIK JASSO, HERMILO T 466.0 ACUTE BRONCHITIS 09/05/2012 VERONICA CARY MD 466.0 ACUTE BRONCHITIS 09/05/2012 KARTIK JASSO, HERMILO T 466.0 ACUTE BRONCHITIS 09/05/2012 KARTIK JASSO, HERMILO T 466.0 ACUTE BRONCHITIS 09/05/2012 SCOTT JASSO, ENRIQUE R 466.0 ACUTE BRONCHITIS 09/05/2012 VERONICA CARY MD 466.0 ACUTE BRONCHITIS 09/05/2012 KARTIK JASSO, HERMILO T 466.0 ACUTE BRONCHITIS 09/05/2012 KARTIK MARINELLIN, HERMILO T 466.0 ACUTE BRONCHITIS 09/05/2012 KARTIK JASSO, HERMILO T 466.0 ACUTE BRONCHITIS 09/05/2012 KARTIK JASSO, HERMILO T 466.0 ACUTE BRONCHITIS 09/05/2012 KARTIK JASSO, HERMILO T 466.0 ACUTE BRONCHITIS 11/21/2012 583.81 NEPHRITIS AND NEPHROPATHY NOT SPECIFIED ACUTE OR CHRONIC IN DISEASES CLASSIFIED ELSEWHERE 11/21/2012 V58.69 LONG-TERM (CURRENT) USE OF OTHER MEDICATIONS 11/21/2012 CAMILLA KELLY DO 583.81 NEPHRITIS AND NEPHROPATHY NOT SPECIFIED ACUTE OR CHRONIC IN DISEASES CLASSIFIED ELSEWHERE 11/21/2012 CAMILLA KELLY DO V58.69 LONG-TERM (CURRENT) USE OF OTHER MEDICATIONS 11/21/2012 CAMILLA KELLY DO 583.81 NEPHRITIS AND NEPHROPATHY NOT SPECIFIED ACUTE OR CHRONIC IN DISEASES CLASSIFIED ELSEWHERE 11/21/2012 CAMILLA KELLY DO V58.69 LONG-TERM (CURRENT) USE OF OTHER MEDICATIONS 11/21/2012 CAMILLA KELLY DO 583.81 NEPHRITIS AND NEPHROPATHY NOT SPECIFIED ACUTE OR CHRONIC IN DISEASES CLASSIFIED ELSEWHERE 11/21/2012 CAMILLA KELLY DO V58.69 LONG-TERM (CURRENT) USE OF OTHER MEDICATIONS 11/21/2012 JAYJAY DARONKATRINA GOMEZ APRN 583.81 NEPHRITIS AND NEPHROPATHY NOT SPECIFIED ACUTE OR CHRONIC IN DISEASES CLASSIFIED ELSEWHERE 11/21/2012 JAYJAY JOHN KATRINA JASSO V58.69 LONG-TERM (CURRENT) USE OF OTHER MEDICATIONS 11/21/2012 WAYNE CLARK APRN 583.81 NEPHRITIS AND NEPHROPATHY NOT SPECIFIED ACUTE OR CHRONIC IN DISEASES CLASSIFIED ELSEWHERE 11/21/2012 WAYNE CLARK APRN V58.69 LONG-TERM (CURRENT) USE OF OTHER MEDICATIONS 11/21/2012 WAYNE CLARK APRN 583.81 NEPHRITIS AND NEPHROPATHY NOT SPECIFIED ACUTE OR CHRONIC IN DISEASES CLASSIFIED ELSEWHERE 11/21/2012 WAYNE CLARK APRN V58.69 LONG-TERM (CURRENT) USE OF OTHER MEDICATIONS 11/21/2012 HERMILO VERDUGO APRN 583.81 NEPHRITIS AND NEPHROPATHY NOT SPECIFIED ACUTE OR CHRONIC IN DISEASES CLASSIFIED ELSEWHERE 11/21/2012 HERMILO VERDUGO APRN V58.69 LONG-TERM (CURRENT) USE OF OTHER MEDICATIONS 11/21/2012 VERONICA CARY MD 583.81 NEPHRITIS AND NEPHROPATHY NOT SPECIFIED ACUTE OR CHRONIC IN DISEASES CLASSIFIED ELSEWHERE 11/21/2012 VERONICA CARY MD V58.69 LONG-TERM (CURRENT) USE OF OTHER MEDICATIONS 11/21/2012 HERMILO VERDUGO APRN 583.81 NEPHRITIS AND NEPHROPATHY NOT SPECIFIED ACUTE OR CHRONIC IN DISEASES CLASSIFIED ELSEWHERE 11/21/2012 HERMILO VERDUGO APRN V58.69 LONG-TERM (CURRENT) USE OF OTHER MEDICATIONS 11/21/2012 VERONICA CARY MD 583.81 NEPHRITIS AND NEPHROPATHY NOT SPECIFIED ACUTE OR CHRONIC IN DISEASES CLASSIFIED ELSEWHERE 11/21/2012 VERONICA CARY MD V58.69 LONG-TERM (CURRENT) USE OF OTHER MEDICATIONS 11/21/2012 HERMILO VERDUGO APRN 583.81 NEPHRITIS AND NEPHROPATHY NOT SPECIFIED ACUTE OR CHRONIC IN DISEASES CLASSIFIED ELSEWHERE 11/21/2012 HERMILO VERDUGO APRN V58.69 LONG-TERM (CURRENT) USE OF OTHER MEDICATIONS 11/21/2012 HERMILO VERDUGO APRN 583.81 NEPHRITIS AND NEPHROPATHY NOT SPECIFIED ACUTE OR CHRONIC IN DISEASES CLASSIFIED ELSEWHERE 11/21/2012 KARTIK MANAGER CCU, HERMILO T V58.69 LONG-TERM (CURRENT) USE OF OTHER MEDICATIONS 11/21/2012 ENRIQUE CHAVEZ APRN 583.81 NEPHRITIS AND NEPHROPATHY NOT SPECIFIED ACUTE OR CHRONIC IN DISEASES CLASSIFIED ELSEWHERE 11/21/2012 ENRIQUE CHAVEZ APRN V58.69 LONG-TERM (CURRENT) USE OF OTHER MEDICATIONS 11/21/2012 VERONICA CARY MD 583.81 NEPHRITIS AND NEPHROPATHY NOT SPECIFIED ACUTE OR CHRONIC IN DISEASES CLASSIFIED ELSEWHERE 11/21/2012 VERONICA CARY MD V58.69 LONG-TERM (CURRENT) USE OF OTHER MEDICATIONS 11/21/2012 HERMILO VERDUGO APRN 583.81 NEPHRITIS AND NEPHROPATHY NOT SPECIFIED ACUTE OR CHRONIC IN DISEASES CLASSIFIED ELSEWHERE 11/21/2012 HERMILO VERDUGO APRN V58.69 LONG-TERM (CURRENT) USE OF OTHER MEDICATIONS 11/21/2012 HERMILO VERDUGO APRN 583.81 NEPHRITIS AND NEPHROPATHY NOT SPECIFIED ACUTE OR CHRONIC IN DISEASES CLASSIFIED ELSEWHERE 11/21/2012 HERMILO VERDUGO APRN V58.69 LONG-TERM (CURRENT) USE OF OTHER MEDICATIONS 11/21/2012 HERMILO VERDUGO APRN 583.81 NEPHRITIS AND NEPHROPATHY NOT SPECIFIED ACUTE OR CHRONIC IN DISEASES CLASSIFIED ELSEWHERE 11/21/2012 HERMILO VERDUGO APRN V58.69 LONG-TERM (CURRENT) USE OF OTHER MEDICATIONS 11/21/2012 HERMILO VERDUGO APRN 583.81 NEPHRITIS AND NEPHROPATHY NOT SPECIFIED ACUTE OR CHRONIC IN DISEASES CLASSIFIED ELSEWHERE 11/21/2012 HERMILO VERDUGO APRN V58.69 LONG-TERM (CURRENT) USE OF OTHER MEDICATIONS 11/21/2012 HERMILO VERDUGO APRN 583.81 NEPHRITIS AND NEPHROPATHY NOT SPECIFIED ACUTE OR CHRONIC IN DISEASES CLASSIFIED ELSEWHERE 11/21/2012 HERMILO VERDUGO APRN V58.69 LONG-TERM (CURRENT) USE OF OTHER MEDICATIONS 12/30/2012 JENNIFER GUTIERREZ MD Ot 250.00 DIAB DALE WO COMPL, TYPE II OR UNSPEC TY 12/30/2012 JENNIFER GUTIERREZ MD Ot 311 DEPRESSIVE DISORDER NEC 12/30/2012 JENNIFER GUTIERREZ MD Ot 401.9 HYPERTENSION NOS 12/30/2012 JENNIFER GUTIERREZ MD Ot 496 CHR AIRWAY OBSTRUCT NEC 12/30/2012 JENNIFER GUTIERREZ MD Ot 564.09 OTHER CONSTIPATION 12/30/2012 MATT MD, JENNIFER A Ot 724.2 LUMBAGO 12/30/2012 MATT ROOT, JENNIFER A Ot 788.30 UNSPECIFIED URINARY INCONTINENCE 12/30/2012 MATT ROOT, JENNIFER Guallpa Ot 847.9 SPRAIN OF BACK NOS 12/30/2012 JENNIFER GUTIERREZ MD A Ot E000.8 OTHER EXTERNAL CAUSE STATUS 12/30/2012 JENNIFER GUTIERREZ MD Ot E016.1 ACTIVITIES INVOLVING GARDENING AND LANDS 12/30/2012 JENNIFER GUTIERREZ MD Ot E849.0 ACCIDENT IN HOME 12/30/2012 JENNIFER GUTIERREZ MD Ot E927.3 CUMULATIVE TRAUMA FROM REPETITIVE MOTION 12/30/2012 JENNIFER GUTIERREZ MD A Ot V58.69 OT MED,LT,CURRENT USE 03/17/2013 KELLY DO, CAMILLA K 357.2 POLYNEUROPATHY IN DIABETES 03/17/2013 KELLY DO, CAMILLA K 700 CORNS AND CALLOSITIES 03/17/2013 KELLY DO, CAMILLA K 727.1 BUNION 03/17/2013 KELLY DO, CAMILLA K 734 FLAT FOOT 03/17/2013 KELLY DO, CAMILLA K 357.2 POLYNEUROPATHY IN DIABETES 03/17/2013 KELLY DO, CAMILLA K 700 CORNS AND CALLOSITIES 03/17/2013 KELLY DO, CAMILLA K 727.1 BUNION 03/17/2013 KELLY DO, CAMILLA K 734 FLAT FOOT 03/17/2013 KELLY DO, CAMILLA K 357.2 POLYNEUROPATHY IN DIABETES 03/17/2013 KELLY DO, CAMILLA K 700 CORNS AND CALLOSITIES 03/17/2013 KELLY DO, CAMILLA K 727.1 BUNION 03/17/2013 KELLY DO, CAMILLA K 734 FLAT FOOT 03/17/2013 HELEN HAZEL APRNCY N 357.2 POLYNEUROPATHY IN DIABETES 03/17/2013 RO CASHERO MANAGER CCUHELEN RiveraCY N 700 CORNS AND CALLOSITIES 03/17/2013 RO CASHPATRICIA JASSO KATRINA N 727.1 BUNION 03/17/2013 RO CASHPATRICIA MANAGER CCU, KATRINA N 734 FLAT FOOT 03/17/2013 AMBERMOIRA Rivera APRNIDI A 357.2 POLYNEUROPATHY IN DIABETES 03/17/2013 AMBERNicole JASSO WAYNE A 700 CORNS AND CALLOSITIES 03/17/2013 AMBER JASSO WAYNE A 727.1 BUNION 03/17/2013 AMBER MANAGER CCU, WAYNE A 734 FLAT FOOT 03/17/2013 AMBER MANAGER CCU, WAYNE A 357.2 POLYNEUROPATHY IN DIABETES 03/17/2013 AMBER MANAGER CCU, WAYNE A 700 CORNS AND CALLOSITIES 03/17/2013 AMBER MANAGER CCU, WAYNE A 727.1 BUNION 03/17/2013 AMBER MANAGER CCU, WAYNE A 734 FLAT FOOT 03/17/2013 HERMILO VERDUGO APRN 357.2 POLYNEUROPATHY IN DIABETES 03/17/2013 HERMILO VERDUGO APRN 700 CORNS AND CALLOSITIES 03/17/2013 HERMILO VERDUGO APRN 727.1 BUNION 03/17/2013 HERMILO VERDUGO APRN 734 FLAT FOOT 03/17/2013 VERONICA CARY MD 357.2 POLYNEUROPATHY IN DIABETES 03/17/2013 VERONICA CARY MD 700 CORNS AND CALLOSITIES 03/17/2013 VERONICA CARY MD 727.1 BUNION 03/17/2013 VERONICA CARY MD 734 FLAT FOOT 03/17/2013 HERMILO VERDUGO APRN 357.2 POLYNEUROPATHY IN DIABETES 03/17/2013 HERMILO VEDRUGO APRN 700 CORNS AND CALLOSITIES 03/17/2013 HERMILO VERDUGO APRN 727.1 BUNION 03/17/2013 HERMILO VERDUGO APRN 734 FLAT FOOT 03/17/2013 VERONICA CARY MD 357.2 POLYNEUROPATHY IN DIABETES 03/17/2013 VERONICA CARY MD 700 CORNS AND CALLOSITIES 03/17/2013 VERONICA CARY MD 727.1 BUNION 03/17/2013 VERONICA CARY MD 734 FLAT FOOT 03/17/2013 HERMILO VERDUGO APRN 357.2 POLYNEUROPATHY IN DIABETES 03/17/2013 HERMILO VERDUGO APRN 700 CORNS AND CALLOSITIES 03/17/2013 HERMILO VERDUGO APRN 727.1 BUNION 03/17/2013 HERMILO VERDUGO APRN 734 FLAT FOOT 03/17/2013 HERMILO VERDUGO APRN 357.2 POLYNEUROPATHY IN DIABETES 03/17/2013 HERMILO VERDUGO APRN 700 CORNS AND CALLOSITIES 03/17/2013 HERMILO VERDUGO APRN 727.1 BUNION 03/17/2013 HERMILO VERDUGO APRN 734 FLAT FOOT 03/17/2013 SCOTT JASSO ENRIQUE R 357.2 POLYNEUROPATHY IN DIABETES 03/17/2013 SCOTT JASSO, ENRIQUE R 700 CORNS AND CALLOSITIES 03/17/2013 SCOTT JASSO ENRIQUE R 727.1 BUNION 03/17/2013 SCOTT JASSO, ENRIQUE R 734 FLAT FOOT 03/17/2013 VERONICA CARY MD 357.2 POLYNEUROPATHY IN DIABETES 03/17/2013 VERONICA CARY MD 700 CORNS AND CALLOSITIES 03/17/2013 VERONICA CARY MD 727.1 BUNION 03/17/2013 VERONICA CARY MD 734 FLAT FOOT 03/17/2013 HERMILO VERDUGO APRN 357.2 POLYNEUROPATHY IN DIABETES 03/17/2013 HERMILO VERDUGO APRN T 700 CORNS AND CALLOSITIES 03/17/2013 HERMILO VERDUGO APRN 727.1 BUNION 03/17/2013 HERMILO VERDUGO APRN T 734 FLAT FOOT 03/17/2013 HERMILO VERDUGO APRN 357.2 POLYNEUROPATHY IN DIABETES 03/17/2013 HERMILO VERDUGO APRN 700 CORNS AND CALLOSITIES 03/17/2013 HERMILO VERDUGO APRN T 727.1 BUNION 03/17/2013 HERMILO VERDUGO APRN T 734 FLAT FOOT 03/17/2013 HERMILO VERDUGO APRN 357.2 POLYNEUROPATHY IN DIABETES 03/17/2013 HERMILO VERDUGO APRN T 700 CORNS AND CALLOSITIES 03/17/2013 HERMILO VERDUGO APRN T 727.1 BUNION 03/17/2013 HERMILO VERDUGO APRN T 734 FLAT FOOT 03/17/2013 HERMILO VERDUGO APRN 357.2 POLYNEUROPATHY IN DIABETES 03/17/2013 HERMILO VERDUGO APRN 700 CORNS AND CALLOSITIES 03/17/2013 HERMILO VERDUGO APRN T 727.1 BUNION 03/17/2013 HERMILO VERDUGO APRN T 734 FLAT FOOT 03/17/2013 HERMILO VERDUGO APRN T 357.2 POLYNEUROPATHY IN DIABETES 03/17/2013 HERMILO VERDUGO APRN T 700 CORNS AND CALLOSITIES 03/17/2013 HERMILO VERDUGO APRN T 727.1 BUNION 03/17/2013 HERMILO VERDUGO APRN T 734 FLAT FOOT 04/26/2013 JENNIFER GUTIERREZ MD Ot 491.21 OBSTR CHRONIC BRONCHITIS, W (ACUTE) EXAC 04/26/2013 JENNIFER GUTIERREZ MD Ot 786.05 SHORTNESS OF BREATH 05/09/2013 ROBIN HERNANDEZ CAMILLA K 611.6 GALACTORRHEA NOT ASSOCIATED WITH CHILDBIRTH 05/09/2013 KATRINA HAZEL APRN N 611.6 GALACTORRHEA NOT ASSOCIATED WITH CHILDBIRTH 05/09/2013 WAYNE CLARK APRN A 611.6 GALACTORRHEA NOT ASSOCIATED WITH CHILDBIRTH 05/09/2013 WAYNE CLARK APRN A 611.6 GALACTORRHEA NOT ASSOCIATED WITH CHILDBIRTH 05/09/2013 HERMILO VERDUGO APRN T 611.6 GALACTORRHEA NOT ASSOCIATED WITH CHILDBIRTH 05/09/2013 VERONICA CARY MD 611.6 GALACTORRHEA NOT ASSOCIATED WITH CHILDBIRTH 05/09/2013 HERMILO VERDUGO APRN T 611.6 GALACTORRHEA NOT ASSOCIATED WITH CHILDBIRTH 05/09/2013 VERONICA CARY MD 611.6 GALACTORRHEA NOT ASSOCIATED WITH CHILDBIRTH 05/09/2013 HEMRILO VERDUGO APRN T 611.6 GALACTORRHEA NOT ASSOCIATED WITH CHILDBIRTH 05/09/2013 HERMILO VERDUGO APRN T 611.6 GALACTORRHEA NOT ASSOCIATED WITH CHILDBIRTH 05/09/2013 ENRIQUE CHAVEZ APRN R 611.6 GALACTORRHEA NOT ASSOCIATED WITH CHILDBIRTH 05/09/2013 VERONICA CARY MD 611.6 GALACTORRHEA NOT ASSOCIATED WITH CHILDBIRTH 05/09/2013 HERMILO VERDUGO APRN T 611.6 GALACTORRHEA NOT ASSOCIATED WITH CHILDBIRTH 05/09/2013 HERMILO VERDUGO APRN T 611.6 GALACTORRHEA NOT ASSOCIATED WITH CHILDBIRTH 05/09/2013 HERMILO VERDUGO APRN T 611.6 GALACTORRHEA NOT ASSOCIATED WITH CHILDBIRTH 05/09/2013 KARTIK JASSO HERMILO T 611.6 GALACTORRHEA NOT ASSOCIATED WITH CHILDBIRTH 05/09/2013 KARTIK JASSO HERMILO T 611.6 GALACTORRHEA NOT ASSOCIATED WITH CHILDBIRTH 06/13/2013 KATRINA HAZEL APRN N 465.9 ACUTE UPPER RESPIRATORY INFECTIONS OF UNSPECIFIED SITE 06/13/2013 KATRINA HAZEL APRN N 786.07 WHEEZING 06/13/2013 KATRINA HAZEL APRN N 786.2 COUGH 06/13/2013 WAYNE CLARK APRN A 465.9 ACUTE UPPER RESPIRATORY INFECTIONS OF UNSPECIFIED SITE 06/13/2013 AMBER MANAGER CCU, WAYNE A 786.07 WHEEZING 06/13/2013 AMBER MANAGER CCU, WAYNE A 786.2 COUGH 06/13/2013 AMBER MANAGER CCU, WAYNE A 465.9 ACUTE UPPER RESPIRATORY INFECTIONS OF UNSPECIFIED SITE 06/13/2013 AMBER MANAGER CCU, WAYNE A 786.07 WHEEZING 06/13/2013 AMBER MANAGER CCU, WAYNE A 786.2 COUGH 06/13/2013 HERMILO VERDUGO APRN T 465.9 ACUTE UPPER RESPIRATORY INFECTIONS OF UNSPECIFIED SITE 06/13/2013 HERMILO VERDUGO APRN T 786.07 WHEEZING 06/13/2013 KARTIK JASSO, HERMILO T 786.2 COUGH 06/13/2013 VERONICA CARY MD 465.9 ACUTE UPPER RESPIRATORY INFECTIONS OF UNSPECIFIED SITE 06/13/2013 VERONICA CARY MD 786.07 WHEEZING 06/13/2013 VERONICA CARY MD 786.2 COUGH 06/13/2013 HERMILO VERDUGO APRN T 465.9 ACUTE UPPER RESPIRATORY INFECTIONS OF UNSPECIFIED SITE 06/13/2013 HERMILO VERDUGO APRN T 786.07 WHEEZING 06/13/2013 HERMILO VERDUGO APRN T 786.2 COUGH 06/13/2013 VERONICA CARY MD 465.9 ACUTE UPPER RESPIRATORY INFECTIONS OF UNSPECIFIED SITE 06/13/2013 VERONICA CARY MD 786.07 WHEEZING 06/13/2013 VERONICA CARY MD 786.2 COUGH 06/13/2013 HERMILO VERDUGO APRN T 465.9 ACUTE UPPER RESPIRATORY INFECTIONS OF UNSPECIFIED SITE 06/13/2013 HERMILO VERDUGO APRN T 786.07 WHEEZING 06/13/2013 HERMILO VERDUGO APRN T 786.2 COUGH 06/13/2013 HERMILO VERDUGO APRN T 465.9 ACUTE UPPER RESPIRATORY INFECTIONS OF UNSPECIFIED SITE 06/13/2013 HERMILO VERDUGO APRN T 786.07 WHEEZING 06/13/2013 HERMILO VERDUGO APRN T 786.2 COUGH 06/13/2013 PETERSON CHAVEZ APRNIA R 465.9 ACUTE UPPER RESPIRATORY INFECTIONS OF UNSPECIFIED SITE 06/13/2013 SCOTT JASSO ENRIQUE R 786.07 WHEEZING 06/13/2013 SCOTT JASSO ENRIQUE R 786.2 COUGH 06/13/2013 VERONICA CARY MD 465.9 ACUTE UPPER RESPIRATORY INFECTIONS OF UNSPECIFIED SITE 06/13/2013 VERONICA CARY MD 786.07 WHEEZING 06/13/2013 VERONICA CARY MD 786.2 COUGH 06/13/2013 KARTIK JASSO, HERMILO T 465.9 ACUTE UPPER RESPIRATORY INFECTIONS OF UNSPECIFIED SITE 06/13/2013 KARTIK JASSO, HERMILO T 786.07 WHEEZING 06/13/2013 KARTIK MANAGER CCU, HERMILO T 786.2 COUGH 06/13/2013 KARTKI JASSO, HERMILO T 465.9 ACUTE UPPER RESPIRATORY INFECTIONS OF UNSPECIFIED SITE 06/13/2013 HERMILO VERDUGO APRN T 786.07 WHEEZING 06/13/2013 KARTIK JASSO, HERMILO T 786.2 COUGH 06/13/2013 KARTIK MARINELLIN, HERMILO T 465.9 ACUTE UPPER RESPIRATORY INFECTIONS OF UNSPECIFIED SITE 06/13/2013 KARTIK MARINELLIN, HERMILO T 786.07 WHEEZING 06/13/2013 KARTIK JASSO, HERMILO T 786.2 COUGH 06/13/2013 KARTIK MARINELLIN, HERMILO T 465.9 ACUTE UPPER RESPIRATORY INFECTIONS OF UNSPECIFIED SITE 06/13/2013 HERMILO VERDUGO APRN T 786.07 WHEEZING 06/13/2013 HERMILO VERDUGO APRN T 786.2 COUGH 06/13/2013 KARTIK JASSO HERMILO T 465.9 ACUTE UPPER RESPIRATORY INFECTIONS OF UNSPECIFIED SITE 06/13/2013 HERMILO VERDUGO APRN T 786.07 WHEEZING 06/13/2013 KARTIK JASSO, HERMILO T 786.2 COUGH 08/07/2013 WAYNE CLARK APRN A 626.7 POSTCOITAL BLEEDING 08/07/2013 WAYNE CLARK APRN A 627.3 POSTMENOPAUSAL ATROPHIC VAGINITIS 08/07/2013 WAYNE CLARK APRN A V76.47 VAGINAL PAP SMEAR SCREENING 08/07/2013 WAYNE CLARK APRN A 626.7 POSTCOITAL BLEEDING 08/07/2013 MOIRA CLARK APRNIDI A 627.3 POSTMENOPAUSAL ATROPHIC VAGINITIS 08/07/2013 MOIRA CLARK APRNIDI A V76.47 VAGINAL PAP SMEAR SCREENING 08/07/2013 HERMILO VERDUGO APRN T 626.7 POSTCOITAL BLEEDING 08/07/2013 HERMILO VERDUGO APRN T 627.3 POSTMENOPAUSAL ATROPHIC VAGINITIS 08/07/2013 HERMILO VERDUGO APRN V76.47 VAGINAL PAP SMEAR SCREENING 08/07/2013 VERONICA CARY MD 626.7 POSTCOITAL BLEEDING 08/07/2013 VERONICA CARY MD 627.3 POSTMENOPAUSAL ATROPHIC VAGINITIS 08/07/2013 VERONICA CARY MD V76.47 VAGINAL PAP SMEAR SCREENING 08/07/2013 HERMILO VERDUGO APRN 626.7 POSTCOITAL BLEEDING 08/07/2013 HERMILO VERDUGO APRN 627.3 POSTMENOPAUSAL ATROPHIC VAGINITIS 08/07/2013 HERMILO VERDUGO APRN V76.47 VAGINAL PAP SMEAR SCREENING 08/07/2013 VERONICA CARY MD 626.7 POSTCOITAL BLEEDING 08/07/2013 VERONICA CARY MD 627.3 POSTMENOPAUSAL ATROPHIC VAGINITIS 08/07/2013 VERONICA CARY MD V76.47 VAGINAL PAP SMEAR SCREENING 08/07/2013 HERMILO VERDUGO APRN 626.7 POSTCOITAL BLEEDING 08/07/2013 HERMILO VERDUGO APRN 627.3 POSTMENOPAUSAL ATROPHIC VAGINITIS 08/07/2013 HERMILO VERDUGO APRN V76.47 VAGINAL PAP SMEAR SCREENING 08/07/2013 HERMILO VERDUGO APRN 626.7 POSTCOITAL BLEEDING 08/07/2013 HERMILO VERDUGO APRN 627.3 POSTMENOPAUSAL ATROPHIC VAGINITIS 08/07/2013 HERMILO VERDUGO APRN V76.47 VAGINAL PAP SMEAR SCREENING 08/07/2013 SCOTT JASSO ENRIQUE R 626.7 POSTCOITAL BLEEDING 08/07/2013 SCOTT JASSO ENRIQUE R 627.3 POSTMENOPAUSAL ATROPHIC VAGINITIS 08/07/2013 ENRIQUE CHAVEZ APRN R V76.47 VAGINAL PAP SMEAR SCREENING 08/07/2013 VERONICA CARY MD 626.7 POSTCOITAL BLEEDING 08/07/2013 VERONICA CARY MD 627.3 POSTMENOPAUSAL ATROPHIC VAGINITIS 08/07/2013 VERONICA CARY MD V76.47 VAGINAL PAP SMEAR SCREENING 08/07/2013 HERMILO VERDUGO APRN 626.7 POSTCOITAL BLEEDING 08/07/2013 HERMILO VERDUGO APRN 627.3 POSTMENOPAUSAL ATROPHIC VAGINITIS 08/07/2013 HERMILO VERDUGO APRN V76.47 VAGINAL PAP SMEAR SCREENING 08/07/2013 HERMILO VERDUGO APRN 626.7 POSTCOITAL BLEEDING 08/07/2013 HERMILO VERDUGO APRN 627.3 POSTMENOPAUSAL ATROPHIC VAGINITIS 08/07/2013 HERMILO VERDUGO APRN V76.47 VAGINAL PAP SMEAR SCREENING 08/07/2013 HERMILO VERDUGO APRN 626.7 POSTCOITAL BLEEDING 08/07/2013 HERMILO VERDUGO APRN 627.3 POSTMENOPAUSAL ATROPHIC VAGINITIS 08/07/2013 HERMILO VERDUGO APRN V76.47 VAGINAL PAP SMEAR SCREENING 08/07/2013 HERMILO VERDUGO APRN T 626.7 POSTCOITAL BLEEDING 08/07/2013 HERMILO VERDUGO APRN 627.3 POSTMENOPAUSAL ATROPHIC VAGINITIS 08/07/2013 HERMILO VERDUGO APRN V76.47 VAGINAL PAP SMEAR SCREENING 08/07/2013 HERMILO VERDUGO APRN 626.7 POSTCOITAL BLEEDING 08/07/2013 HERMILO VERDUGO APRN 627.3 POSTMENOPAUSAL ATROPHIC VAGINITIS 08/07/2013 HERMILO VERDUGO APRN V76.47 VAGINAL PAP SMEAR SCREENING 08/21/2013 JEN ROOT, KELSEY Roberts Ot 053.9 HERPES ZOSTER NOS 08/21/2013 JEN ROOT, KELSEY Roberts Ot 786.59 CHEST PAIN NEC 09/19/2013 VERONICA CARY MD CHRONIC AIRWAY OBSTRUCTION NOT ELSEWHERE CLASSIFIED 09/19/2013 HERMILO VERDUGO APRN 496 CHRONIC AIRWAY OBSTRUCTION NOT ELSEWHERE CLASSIFIED 09/19/2013 VERONICA CARY MD CHRONIC AIRWAY OBSTRUCTION NOT ELSEWHERE CLASSIFIED 09/19/2013 HERMILO VERDUGO APRN 496 CHRONIC AIRWAY OBSTRUCTION NOT ELSEWHERE CLASSIFIED 09/19/2013 HERMILO VERDUGO APRN 496 CHRONIC AIRWAY OBSTRUCTION NOT ELSEWHERE CLASSIFIED 09/19/2013 ENRIQUE CHAVEZ APRN R 496 CHRONIC AIRWAY OBSTRUCTION NOT ELSEWHERE CLASSIFIED 09/19/2013 VERONICA CARY MD CHRONIC AIRWAY OBSTRUCTION NOT ELSEWHERE CLASSIFIED 09/19/2013 HERMILO VERDUGO APRN 496 CHRONIC AIRWAY OBSTRUCTION NOT ELSEWHERE CLASSIFIED 09/19/2013 HERMILO VERDUGO APRN 496 CHRONIC AIRWAY OBSTRUCTION NOT ELSEWHERE CLASSIFIED 09/19/2013 HERMILO VERDUGO APRN 496 CHRONIC AIRWAY OBSTRUCTION NOT ELSEWHERE CLASSIFIED 09/19/2013 HERMILO VERDUGO APRN 496 CHRONIC AIRWAY OBSTRUCTION NOT ELSEWHERE CLASSIFIED 09/19/2013 HERMILO VERDUGO APRN 496 CHRONIC AIRWAY OBSTRUCTION NOT ELSEWHERE CLASSIFIED 02/19/2014 ENRIQUE CHAVEZ APRN R 461.9 SINUSITIS ACUTE 02/19/2014 VERONICA CARY MD 461.9 SINUSITIS ACUTE 02/19/2014 HERMILO VERDUGO APRN 461.9 SINUSITIS ACUTE 02/19/2014 HERMILO VERDUGO APRN 461.9 SINUSITIS ACUTE 02/19/2014 HERMILO VERDUGO APRN 461.9 SINUSITIS ACUTE 02/19/2014 HERMILO VREDUGO APRN 461.9 SINUSITIS ACUTE 02/19/2014 HERMILO VERDUGO APRN 461.9 SINUSITIS ACUTE 05/29/2014 Ot 786.6 05/29/2014 Ot 397.0 05/29/2014 Ot 424.0 05/29/2014 Ot 786.09 05/29/2014 Ot 786.50 05/29/2014 Ot 272.4 05/29/2014 Ot 401.9 05/29/2014 Ot 414.01 05/29/2014 Ot 786.50 05/29/2014 Ot 791.9 05/29/2014 Ot 794.39 05/29/2014 Ot V72.63 05/29/2014 Ot V72.81 05/29/2014 Ot V74.8 05/29/2014 WAYNE CLARK APRN Ot 611.79 05/29/2014 HERMILO VERDUGOP Ot 793.80 06/01/2014 WAYNE CLARK APRN Ot 611.72 06/19/2014 HERMILO VERDUGO PRIZER HAND Ot 793.80 07/04/2014 WAYNE CLARK APRN Ot 611.72 07/19/2014 HERMILO VERDUGO APRN 788.1 DYSURIA 07/19/2014 HERMILO VERDUGO APRN 788.1 DYSURIA 07/30/2014 WAYNE CLARK APRN Ot 611.72 09/19/2014 HERMILO VERDUGO APRN 354.0 CARPAL TUNNEL SYNDROME 09/19/2014 HERMILO EVRDUGO APRN 357.9 NEUROPATHY UNSP 09/19/2014 HERMILO VERDUGO APRN 724.2 BACK PAIN, LOWER 02/22/2015 Ot 786.6 02/22/2015 Ot 397.0 02/22/2015 Ot 424.0 02/22/2015 Ot 786.09 02/22/2015 Ot 786.50 02/22/2015 Ot 272.4 02/22/2015 Ot 401.9 02/22/2015 Ot 414.01 02/22/2015 Ot 786.50 02/22/2015 Ot 791.9 02/22/2015 Ot 794.39 02/22/2015 Ot V72.63 02/22/2015 Ot V72.81 02/22/2015 Ot V74.8 02/22/2015 WAYNE CLARK MANAGER CCU Ot 611.79 02/22/2015 MOIRA CLARKIDI Ramu MANAGER CCU Ot 611.72 02/22/2015 HERMILO VERDUGO PRIZER HAND Ot 793.80 02/22/2015 SHAZIA HO MANAGER CCU Ot 053.9 HERPES ZOSTER NOS 02/22/2015 SHAZIA OH MANAGER CCU Ot 491.21 OBSTR CHRONIC BRONCHITIS, W (ACUTE) EXAC 02/22/2015 SHAZIA HO MANAGER CCU Ot 786.05 SHORTNESS OF BREATH 08/11/2015 SHAZIA HO APRN Ot J44.9 CHRONIC OBSTRUCTIVE PULMONARY DISEASE, U 08/11/2015 SHAZIA HO MANAGER CCU Ot Z53.21 PROC/TRTMT NOT CRD OUT D/T PT LV BEF SEE 08/23/2015 SHAZIA HO APRN Ot J44.9 08/23/2015 SHAZIA HO APRN Ot Z53.21 10/29/2015 REUBEN HERNANDEZLIAM Ot H57.9 UNSPECIFIED DISORDER OF EYE AND ADNEXA 10/29/2015 REUBEN HERNANDEZ LIAM Manfred Ot Z53.21 PROC/TRTMT NOT CRD OUT D/T PT LV BEF SEE 10/30/2015 REUBEN LIAM Ot H57.9 UNSPECIFIED DISORDER OF EYE AND ADNEXA 10/30/2015 REUBEN LIAM Manfred Ot Z53.21 PROC/TRTMT NOT CRD OUT D/T PT LV BEF SEE 11/15/2015 JOSÉ LUIS RONDON MD Ot J44.9 CHRONIC OBSTRUCTIVE PULMONARY DISEASE, U 11/15/2015 JOSÉ LUIS RONDON MD Ot M25.512 PAIN IN LEFT SHOULDER 11/15/2015 JOSÉ LUIS RONDON MD Ot M54.2 CERVICALGIA 11/18/2015 JOSÉ LUIS RONDON MD Ot J44.9 CHRONIC OBSTRUCTIVE PULMONARY DISEASE, U 11/18/2015 JOSÉ LUIS RONDON MD Ot M25.512 PAIN IN LEFT SHOULDER 11/18/2015 JOSÉ LUIS RONDON MD Ot M54.2 CERVICALGIA 07/01/2016 Ot 397.0 TRICUSPID VALVE DISEASE 07/01/2016 Ot 424.0 MITRAL VALVE DISORDER 07/01/2016 Ot 786.09 RESPIRATORY ABNORM NEC 07/01/2016 Ot 786.50 CHEST PAIN NOS 07/01/2016 Ot 272.4 HYPERLIPIDEMIA NEC/NOS 07/01/2016 Ot 401.9 HYPERTENSION NOS 07/01/2016 Ot 414.01 CORONARY ATHEROSCLEROSIS OF [place] CORON 07/01/2016 Ot 786.50 CHEST PAIN NOS 07/01/2016 Ot 791.9 ABN URINE FINDINGS NEC 07/01/2016 Ot 794.39 ABN CARDIOVASC STUDY NEC 07/01/2016 Ot V72.63 PRE-PROCEDURAL LABORATORY EXAMINATION 07/01/2016 Ot V72.81 [id number] CARDIOVASCULAR 07/01/2016 Ot V74.8 SCREEN-BACTERIAL DIS NEC 07/01/2016 WAYNE CLARK MANAGER CCU Ot 611.79 SYMPTOMS IN BREAST NEC 07/01/2016 WAYNE CLARK MANAGER CCU Ot 611.72 LUMP OR MASS IN BREAST 07/01/2016 HERMILO VERDUGO Ot 793.80 UNSPEC ABNORMAL MAMMOGRAM 07/01/2016 GABY DEL RIO Ot B00.9 HERPESVIRAL INFECTION, UNSPECIFIED 07/01/2016 GABY DEL RIO Ot 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 07/01/2016 GABY DEL RIO Ot E11.9 TYPE 2 DIABETES MELLITUS WITHOUT COMPLIC 07/01/2016 GABY DEL RIO Ot E86.0 DEHYDRATION 07/01/2016 GABY DEL RIO Ot I10 ESSENTIAL (PRIMARY) HYPERTENSION 07/01/2016 GABY DEL RIO Ot J11.1 FLU DUE TO UNIDENTIFIED INFLUENZA VIRUS 07/01/2016 GABY DEL RIO Ot J44.9 CHRONIC OBSTRUCTIVE PULMONARY DISEASE, U 07/01/2016 GABY DEL RIO Ot R11.2 NAUSEA WITH VOMITING, UNSPECIFIED 07/01/2016 GABY DEL RIO Ot Z79.899 OTHER SKILLED NURSING (CURRENT) DRUG THERAPY 07/01/2016 Ot 397.0 TRICUSPID VALVE DISEASE 07/01/2016 Ot 424.0 MITRAL VALVE DISORDER 07/01/2016 Ot 786.09 RESPIRATORY ABNORM NEC 07/01/2016 Ot 786.50 CHEST PAIN NOS 07/01/2016 Ot 272.4 HYPERLIPIDEMIA NEC/NOS 07/01/2016 Ot 401.9 HYPERTENSION NOS 07/01/2016 Ot 414.01 CORONARY ATHEROSCLEROSIS OF [place] CORON 07/01/2016 Ot 786.50 CHEST PAIN NOS 07/01/2016 Ot 791.9 ABN URINE FINDINGS NEC 07/01/2016 Ot 794.39 ABN CARDIOVASC STUDY NEC 07/01/2016 Ot V72.63 PRE-PROCEDURAL LABORATORY EXAMINATION 07/01/2016 Ot V72.81 [id number] CARDIOVASCULAR 07/01/2016 Ot V74.8 SCREEN-BACTERIAL DIS NEC 07/01/2016 WAYNE CLARK MANAGER CCU Ot 611.79 SYMPTOMS IN BREAST NEC 07/01/2016 WAYNE CLARK MANAGER CCU Ot 611.72 LUMP OR MASS IN BREAST 07/01/2016 HERMILO VERDUGO Ot 793.80 UNSPEC ABNORMAL MAMMOGRAM 07/02/2016 GABY DEL RIO Ot B00.9 HERPESVIRAL INFECTION, UNSPECIFIED 07/02/2016 GABY DEL RIO Ot 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 07/02/2016 GABY DEL RIO Ot E11.9 TYPE 2 DIABETES MELLITUS WITHOUT COMPLIC 07/02/2016 GABY DEL RIO Ot E86.0 DEHYDRATION 07/02/2016 GABY DEL RIO Ot I10 ESSENTIAL (PRIMARY) HYPERTENSION 07/02/2016 GABY DEL RIO Ot J11.1 FLU DUE TO UNIDENTIFIED INFLUENZA VIRUS 07/02/2016 GABY DEL RIO Ot J44.9 CHRONIC OBSTRUCTIVE PULMONARY DISEASE, U 07/02/2016 GABY DEL RIO Ot R11.2 NAUSEA WITH VOMITING, UNSPECIFIED 07/02/2016 GABY DEL RIO Ot 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 11/13/2016 KAMERON ROOT FACC, RUDOLPH GONZALEZ CCDS Ot R06.02 SHORTNESS OF BREATH 11/13/2016 KAMERON ROOT FACC, RUDOLPH FREEMANP CCDS Ot R07.89 OTHER CHEST PAIN 11/13/2016 KAMERON ROOT FACC, RUDOLPH FACP CCDS Ot R55 SYNCOPE AND COLLAPSE 11/18/2016 WAYNE CLARK MANAGER CCU Ot 611.79 SYMPTOMS IN BREAST NEC 11/18/2016 WAYNE CLARK MANAGER CCU Ot 611.72 LUMP OR MASS IN BREAST 11/18/2016 KARTIK, HERMILO T PRIZER HAND Ot 793.80 UNSPEC ABNORMAL MAMMOGRAM 11/18/2016 KAMERON ROOT FACC, ALI FACP CCDS Ot R06.02 SHORTNESS OF BREATH 11/18/2016 KAMERON ROOT FACC, ALI FACP CCDS Ot R07.89 OTHER CHEST PAIN 11/18/2016 KAMERON ROOT FACC, ALI FACP CCDS Ot R55 SYNCOPE AND COLLAPSE 11/18/2016 BAIMA, INDER L PRIZER HAND Ot I20.9 ANGINA PECTORIS, UNSPECIFIED 11/18/2016 BAIMA, INDER L PRIZER HAND Ot R06.02 SHORTNESS OF BREATH 11/18/2016 BAIMA, INDER L PRIZER HAND Ot R42 DIZZINESS AND GIDDINESS 11/18/2016 BAIMA, INDER L PRIZER HAND Ot R53.83 OTHER FATIGUE 11/18/2016 BAIMA, INDER L PRIZER HAND Ot R55 SYNCOPE AND COLLAPSE 11/25/2016 KAMERON ROOT FACC, ALI FACP CCDS Ot R06.02 SHORTNESS OF BREATH 11/25/2016 KAMERON ROOT FACC, ALI FACP CCDS Ot R07.89 OTHER CHEST PAIN 11/25/2016 KAMERON ROOT FACC, ALI FACP CCDS Ot R55 SYNCOPE AND COLLAPSE 12/03/2016 KAMERON ROOT FACC, ALI FACP CCDS Ot R06.02 SHORTNESS OF BREATH 12/03/2016 KAMERON ROOT FACC, ALI FACP CCDS Ot R07.89 OTHER CHEST PAIN 12/03/2016 KAMERON FREEMAN, ALI FACP CCDS Ot R55 SYNCOPE AND COLLAPSE 12/08/2016 VIRGENMA, INDER L PRIZER HAND Ot I20.9 ANGINA PECTORIS, UNSPECIFIED 12/08/2016 BAIMA, INDER L PRIZER HAND Ot R06.02 SHORTNESS OF BREATH 12/08/2016 BAIMA, INDER L PRIZER HAND Ot R42 DIZZINESS AND GIDDINESS 12/08/2016 BAIMA, INDER L PRIZER HAND Ot R53.83 OTHER FATIGUE 12/08/2016 BAIMA, INDER L PRIZER HAND Ot R55 SYNCOPE AND COLLAPSE 12/10/2016 KAMERON ROOT FACC, ALI FACP CCDS Ot R06.02 SHORTNESS OF BREATH 12/10/2016 KAMERON ROOT FACC, ALI FACP CCDS Ot R07.89 OTHER CHEST PAIN 12/10/2016 KAMERON ROOT FACC, ALI FACP CCDS Ot R55 SYNCOPE AND COLLAPSE 12/17/2016 KAMERON ROOT FACC, ALI FACP CCDS Ot R06.02 SHORTNESS OF BREATH 12/17/2016 KAMERON ROOT FACC, RUDOLPH FACP CCDS Ot R07.89 OTHER CHEST PAIN 12/17/2016 KAMERON ROOT FACC, ALI FACP CCDS Ot R55 SYNCOPE AND COLLAPSE 02/20/2018 ZAHIRA HENSON MD Ot E11.9 TYPE 2 DIABETES MELLITUS WITHOUT COMPLIC 02/20/2018 ZAHIRA HENSON MD Ot F32.9 MAJOR DEPRESSIVE DISORDER, SINGLE EPISOD 02/20/2018 ZAHIRA HENSON MD Ot F41.9 ANXIETY DISORDER, UNSPECIFIED 02/20/2018 ZAHIRA HENSON MD Ot F43.10 POST-TRAUMATIC STRESS DISORDER, UNSPECIF 02/20/2018 ZAHIRA HENSON MD Ot J44.9 CHRONIC OBSTRUCTIVE PULMONARY DISEASE, U 02/20/2018 ZAHIRA HENSON MD Ot M54.6 PAIN IN THORACIC SPINE 02/20/2018 ZAHIRA HENSON MD Ot N39.0 URINARY TRACT INFECTION, SITE NOT SPECIF 02/20/2018 ZAHIRA HENSON MD Ot Z87.440 PERSONAL HISTORY OF URINARY (TRACT) INFE 02/20/2018 ZAHIRA HENSON MD Ot Z88.6 ALLERGY STATUS TO ANALGESIC AGENT STATUS 02/20/2018 ZAHIRA HENSON MD Ot Z90.710 ACQUIRED ABSENCE OF BOTH CERVIX AND UTER 02/20/2018 WAYNE CLARK MANAGER CCU Ot 611.79 SYMPTOMS IN BREAST NEC 02/20/2018 WAYNE CLARK MANAGER CCU Ot 611.72 LUMP OR MASS IN BREAST 02/20/2018 HERMILO VERDUGO PRIZER HAND Ot 793.80 UNSPEC ABNORMAL MAMMOGRAM 02/20/2018 KAMERON ROOT FACC, RUDOLPH FACP CCDS Ot R06.02 SHORTNESS OF BREATH 02/20/2018 KAMERON ROOT FACC, RUDOLPH FACP CCDS Ot R07.89 OTHER CHEST PAIN 02/20/2018 KAMERON ROOT FACC, ALI FACP CCDS Ot R55 SYNCOPE AND COLLAPSE 02/20/2018 KAMERON ROOT FACC, ALI FACP CCDS Ot R06.02 SHORTNESS OF BREATH 02/20/2018 KAMERON ROOT FACC, ALI FACP CCDS Ot R07.89 OTHER CHEST PAIN 02/20/2018 KAMERON ROOT FACC, ALI FACP CCDS Ot R55 SYNCOPE AND COLLAPSE 02/20/2018 BAIMAINDER L PRIZER HAND Ot I20.9 ANGINA PECTORIS, UNSPECIFIED 02/20/2018 BAIMA, INDER L PRIZER HAND Ot R06.02 SHORTNESS OF BREATH 02/20/2018 BAIMA, INDER L PRIZER HAND Ot R42 DIZZINESS AND GIDDINESS 02/20/2018 BAIMA, INDER L PRIZER HAND Ot R53.83 OTHER FATIGUE 02/20/2018 BAIMA, INDER L PRIZER HAND Ot R55 SYNCOPE AND COLLAPSE 02/20/2018 KAMERON ROOT FAC, ALI FACP CCDS Ot R06.02 SHORTNESS OF BREATH 02/20/2018 KAMERON ROOT FACC, ALI FACP CCDS Ot R07.89 OTHER CHEST PAIN 02/20/2018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
== END 2019-01-20 14:58 | disposition home or self-care (01) ==
LOC: EDUNIT# 13:19 → ER 13:20
DX: S09.90XA Unspecified injury of head, initial encounter (principal); S13.9XXA Sprain of joints and ligaments of unspecified parts of neck, initial encounter; S23.9XXA Sprain of unspecified parts of thorax, initial encounter; J45.909 Unspecified asthma, uncomplicated; E11.9 Type 2 diabetes mellitus without complications; F41.9 Anxiety disorder, unspecified; F32.9 Major depressive disorder, single episode, unspecified; F43.10 Post-traumatic stress disorder, unspecified; Z87.442 Personal history of urinary calculi; Z88.6 Allergy status to analgesic agent; Z90.710 Acquired absence of both cervix and uterus; V49.50XA Passenger injured in collision with unspecified motor vehicles in traffic accident, initial encounter; Y92.411 Interstate highway as the place of occurrence of the external cause
CPT/HCPCS: 70450; 72125; 72128

== ENCOUNTER 2019-04-29 06:30 | Emergency (ER) | payer MEDICARE, OTHER ==
[~2019-04-29] VITALS: Ht 165 cm; Wt 78.0 kg
[2019-04-29 06:55] LABS: BASOPHILS % (AUTO) 0 % (0-10); EOSINOPHILS # (AUTO) 0.5 10^3/uL (0.0-0.3); EOSINOPHILS % (AUTO) 6 % (0-10); HEMATOCRIT 36 % (35-52); HEMOGLOBIN 12.4 G/DL (11.5-16.0); LYMPHOCYTES # (AUTO) 3.7 X 10^3 (1.0-4.0); LYMPHOCYTES % (AUTO) 51 % (12-44); MEAN CORPUSCULAR HEMOGLOBIN 37 PG (25-34); MEAN CORPUSCULAR HGB CONC 34 G/DL (32-36); MEAN CORPUSCULAR VOLUME 108 FL (80-99); MEAN PLATELET VOLUME 10.8 FL (7.4-10.4); MONOCYTES # (AUTO) 0.4 X 10^3 (0.0-1.0); MONOCYTES % (AUTO) 6 % (0-12); NEUTROPHILS # (AUTO) 2.6 X 10^3 (1.8-7.8); NEUTROPHILS % (AUTO) 36 % (42-75); PLATELET COUNT 254 10^3/uL (130-400); RED CELL DISTRIBUTION WIDTH 14.4 % (10.0-14.5); WHITE BLOOD COUNT 7.2 10^3/uL (4.3-11.0)
[2019-04-29] MEDS ORDERED: TETANUS,DIPTH,PERTUSS P/F (BOOSTRIX) 0.5 ML VIAL IM ONE (07:00)
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
[2019-04-29 07:19] LABS: ALANINE AMINOTRANSFERASE 10 U/L (0-55); ALKALINE PHOSPHATASE 71 U/L (40-136); BILIRUBIN,TOTAL 0.7 MG/DL (0.1-1.0); BUN/CREATININE RATIO 9; CALCIUM 9.5 MG/DL (8.5-10.1); CARBON DIOXIDE 24 MMOL/L (21-32); CHLORIDE 107 MMOL/L (98-107); CREATININE SERUM 0.87 MG/DL (0.60-1.30); GFR ESTIMATED > 60; GLUCOSE 134 MG/DL (70-105); POTASSIUM 3.5 MMOL/L (3.6-5.0); SODIUM 141 MMOL/L (135-145); TOTAL PROTEIN 7.6 GM/DL (6.4-8.2)
--- NOTE | 2019-04-29 07:51 | Diagnostic Imaging Report ---
INDICATION: Fall. TECHNIQUE: Frontal view of the chest. COMPARISON: 02/20/2018 FINDINGS: Lung volumes are mildly low. Mild opacities are seen in the lung bases and in the right upper lobe. There is no pleural effusion or pneumothorax. The cardiac silhouette is normal in size. No acute fracture is seen. IMPRESSION: 1. Mild airspace opacities in the lung bases and right upper lobe, may represent infiltrate, or possibly atelectasis given the lower lung volumes. Dictated by: Dictated on workstation # [id number]
--- NOTE | 2019-04-29 07:52 | Diagnostic Imaging Report ---
INDICATION: Fall. TECHNIQUE: Frontal view of the pelvis. COMPARISON: None FINDINGS: No acute fracture or dislocation is seen on this single view of the pelvis. Alignment appears normal. The pubic symphysis and sacroiliac joints are patent. The femoral acetabular alignment appears normal. IMPRESSION: No acute osseous abnormality is seen on this single view of the pelvis. Dictated by: Dictated on workstation # [id number]
--- NOTE | 2019-04-29 07:55 | Diagnostic Imaging Report ---
PROCEDURE: CT head and CT cervical spine without contrast. TECHNIQUE: Multiple contiguous axial images were obtained through the brain and cervical spine without the use of intravenous contrast. Sagittal and coronal reformations through the cervical spine were then performed. Auto Exposure Controls were utilized during the CT exam to meet ALARA standards for radiation dose reduction. INDICATION: Fall. Comparison is made with prior CT from 01/20/2019. CT HEAD: The ventricles and sulci are within normal limits. No sulcal effacement or midline shift is detected. No acute intra-axial or extra-axial hemorrhage is detected. Cisterns are patent. There appears to be some soft tissue swelling in the right frontal scalp. No depressed calvarial fracture is seen. IMPRESSION: No acute intracranial process is detected. CT cervical spine: Curvature and alignment is normal. No fracture or subluxation is identified. There is some degenerative disc disease C5-C6 level with marginal spurring. Prevertebral tissues are normal. Odontoid is intact. IMPRESSION: No acute bony abnormality is detected. Dictated by: Dictated on workstation # [id number]
--- NOTE | 2019-04-29 07:58 | Diagnostic Imaging Report ---
PATIENT HISTORY: Fall, right knee pain. TECHNIQUE: 3 views of the right knee COMPARISON: None FINDINGS: No acute fracture or dislocation is seen in the right knee. Alignment appears normal. There are mild degenerative changes present. No significant joint effusion is seen. IMPRESSION: No acute osseous abnormality seen in the right knee. Dictated by: Dictated on workstation # [id number]
[2019-04-29] MEDS ORDERED: KETOROLAC 30 MG/ML VIAL IVP STA (08:17)
[2019-04-29] MEDS ORDERED: fentaNYL INJECTION 100 MCG/2 ML AMP IVP STA (08:17)
[2019-04-29] MEDS ORDERED: NS 100 ML (IVPB) BAG IV ONE (08:30)
[2019-04-29] MEDS ORDERED: IOHEXOL 350 MG/ML 100 ML (OMNIPAQUE 350) VIAL IV ONE (08:30)
[2019-04-29] MEDS ORDERED: HOLD METFORMIN - RECEIVED CONTRAST 20 ML VIAL IV SCH (08:30)
--- NOTE | 2019-04-29 09:30 | Diagnostic Imaging Report ---
PROCEDURE: CT chest with contrast only. TECHNIQUE: Multiple contiguous axial images were obtained through the chest after administration of intravenous contrast. Auto Exposure Controls were utilized during the CT exam to meet ALARA standards for radiation dose reduction. INDICATION: Fall and right-sided chest pain. FINDINGS: No definite mediastinal hematoma or great vessel injury is identified. No pericardial or pleural fluid is identified. No definite pulmonary contusion or pneumothorax is identified. There are several noncalcified nodules identified in bilateral lungs. Nodule superior segment right lower lobe measures 8 mm. A smaller nodule just lateral to this measures 5 mm. Left lower lobe nodule measures 5 mm and a lingular nodule measures 7 mm. These are indeterminate. Bony structures are unremarkable. No definite rib fracture is seen. Upper abdomen demonstrates a peripherally calcified mass in the left upper quadrant approximately 5.1 cm AP by 5.5 cm transverse. This compares with 5.8 x 6.[address] study from 2012. A fat-containing mass in left adrenal gland is also noted measuring 3.4 x 2.6 cm compared with 3.3 x 2.3 cm on prior. IMPRESSION: 1. No evidence of great vessel injury, parenchymal contusion or pneumothorax. No acute bony abnormality is seen. 2. Multiple subcentimeter noncalcified pulmonary nodules. In reviewing CT abdomen and pelvis study from November 2011, these nodules were present and appear very similar and likely on a benign basis. 3. Stable left upper quadrant abdominal mass and essentially stable fat-containing left adrenal mass since exam from 2011. Dictated by: Dictated on workstation # [id number]
[2019-04-29 10:23] VITALS: BP 143/69
== END 2019-04-29 10:23 | disposition home or self-care (01) ==
LOC: EDUNIT# 06:30 → ER 06:31
DX: S06.0X0A Concussion without loss of consciousness, initial encounter (principal); S01.81XA Laceration without foreign body of other part of head, initial encounter; S20.211A Contusion of right front wall of thorax, initial encounter; S80.01XA Contusion of right knee, initial encounter; J45.909 Unspecified asthma, uncomplicated; E11.9 Type 2 diabetes mellitus without complications; F41.9 Anxiety disorder, unspecified; F43.10 Post-traumatic stress disorder, unspecified; F32.9 Major depressive disorder, single episode, unspecified; R40.2142 Coma scale, eyes open, spontaneous, at arrival to emergency department; R40.2252 Coma scale, best verbal response, oriented, at arrival to emergency department; R40.2362 Coma scale, best motor response, obeys commands, at arrival to emergency department; Z23 Encounter for immunization; Z87.440 Personal history of urinary (tract) infections; Z88.6 Allergy status to analgesic agent; Z87.828 Personal history of other (healed) physical injury and trauma; Z90.710 Acquired absence of both cervix and uterus; Z90.81 Acquired absence of spleen; W01.10XA Fall on same level from slipping, tripping and stumbling with subsequent striking against unspecified object, initial encounter
CPT/HCPCS: 12001; 36415; 70450; 71045; 71260; 72125; 72170; 73562; 80053; 85025; 90715

== ENCOUNTER 2019-07-31 14:08 | Emergency (ER) | payer MEDICARE ==
[~2019-07-31] VITALS: Ht 147.3 cm; Wt 77.3 kg
[2019-07-31] MEDS ORDERED: RT-ALBUTEROL/IPRATROPIUM 3 ML (DUONEB) VIAL INH ONE (14:15)
--- NOTE | 2019-07-31 14:23 | ED Dyspnea ---
General Stated Complaint: SOA Source of Information: Patient Exam Limitations: No Limitations History of Present Illness Date Seen by Provider: Jul 31, 2019 Time Seen by Provider: 14:10 Initial Comments 69-year-old female who was brought to the emergency room by her who is also a patient in the emergency room for increased shortness of breath. She reports that she has history of COPD and has been coughing for the past few days. Her is being evaluated for flulike symptoms today. She denies fevers, chest pain, lightheadedness, dizziness. She does report that she has been out of her breathing treatments and her inhalers. She has a diagnosis of Alzheimer's. Allergies and Home Medications Allergies Coded Allergies: aspirin (Unverified Allergy, Mild, 04/01/09) Uncoded Allergies: [id number] (SULFA (SULFONAMIDE ANTIBIOTICS)) (Allergy, Mild, 04/01/09) Home Medications Acyclovir 400 Mg Tablet, 400 MG PO TID x7-10 days Prescribed by: GABY NOLAN on 07/01/16 1620 Albuterol Sulfate 1 Puff Puff, 2 PUFF IH Q4H 1 PUFF = 90 MCG Prescribed by: GARIMA MONTES DE OCA on 07/31/19 1633 Albuterol Sulfate 2.5 Mg/3 Ml Vial.neb, 2.5 MG INH Q4H PRN for WHEEZING Prescribed by: GARIMA MONTES DE OCA on 07/31/19 1633 Ciprofloxacin HCl 500 Mg Tablet, 500 MG PO BID, (Reported) Fluconazole 100 Mg Tablet, 100 MG PO DAILY Prescribed by: GABY NOLAN on 07/01/16 1609 Nitrofurantoin Macrocrystal 100 Mg Capsule, 100 MG PO BID Prescribed by: ZAHIRA HENSON on 02/20/18 1213 Ondansetron 8 Mg Tab.rapdis, 8 MG PO Q6H PRN for NAUSEA/VOMITING Prescribed by: GABY NOLAN on 07/01/16 1609 Oseltamivir Phosphate 75 Mg Cap, 75 MG PO BID Prescribed by: GABY NOLAN on 07/01/16 1609 Promethazine HCl/Codeine 118 Ml Syrup, 5 ML PO Q6H PRN for COUGH Prescribed by: GABY NOLAN on 07/01/16 1609 Patient Home Medication List Home Medication List Reviewed: Yes Review of Systems Review of Systems Constitutional: see HPI; No chills, No fever Respiratory: see HPI, cough, short of breath All Other Systems Reviewed Negative Unless Noted: Yes Past Qyfurgl-Wtgymf-Ftdroc Hx Past Med/Social Hx: Reviewed Nursing Past Med/Soc Hx Patient Social History 2nd Hand Smoke Exposure: No Recent Hopitalizations: Yes (RAN OVER BY AUTO AT AGE 3 -- ) Immunizations Up To Date Tetanus Booster (TDap): Less than 5yrs Date of Pneumonia Vaccine: Mar 17, 2010 Past Medical History Surgeries: Yes (SURG BOTH WRIST CARP TUNNEL - LUMP REMOVED R BREAST, HYST, SPLENECTOMY) Gallbladder, Hysterectomy, Orthopedic Respiratory: Yes Asthma Cardiac: Yes (frequent dizzy spells and near syncope) Neurological: No Genitourinary: No UTI-Chronic Gastrointestinal: No Musculoskeletal: Yes Arthritis Endocrine: Yes Diabetes, Non-Insulin dep Cancer: No Psychosocial: Yes Anxiety, PTSD, Depression Integumentary: No Recent Skin Changes Blood Disorders: No Adverse Reaction/Blood Tranf: Yes (HAD "BLOTHCHES ALL OVER") Family Medical History Reviewed Nursing Family Hx No Pertinent Family Hx Physical Exam Vital Signs Vital Signs - First Documented 07/31/19 07/31/19 14:10 15:05 Temp 36.5 Pulse 103 Resp 20 B/P (MAP) 156/85 (108) Pulse Ox 96 O2 Delivery Room Air O2 Flow Rate 2.00 Capillary Refill : Height, Weight, BMI Height: 4'11.00" Weight: 170lbs. 0oz. [id number]; 28.00 BMI Method:Stated General Appearance: No Apparent Distress, WD/WN Neck: Full Range of Motion, Normal Inspection, Non Tender Respiratory: Chest Non Tender, No Accessory Muscle Use, No Respiratory Distress, Wheezing (througout lung childers.) Cardiovascular: Regular Rate, Rhythm, No Edema, No Gallop, No JVD, No Murmur, Normal Peripheral Pulses Gastrointestinal: Normal Bowel Sounds, Non Tender, Soft Extremity: Normal Capillary Refill, No Pedal Edema Neurologic/Psychiatric: Alert, Oriented x3, Normal Mood/Affect Skin: Normal Color, Warm/Dry Progress/Results/Core Measures Results/Orders Lab Results Laboratory Tests Test 07/31/19 14:10 07/31/19 14:52 07/31/19 15:00 Range/Units Lab Scanned Report Referred Lab Report [id number] Urine Color YELLOW Urine Clarity SL CLOUDY Urine pH 5.5 5-9 Urine Specific [place] >=1.030 1.016-1.022 Urine Protein TRACE H NEGATIVE Urine Glucose (UA) NEGATIVE NEGATIVE Urine Ketones TRACE H NEGATIVE Urine Nitrite NEGATIVE NEGATIVE Urine Bilirubin 1+ H NEGATIVE Urine Urobilinogen 1.0 < = 1.0 MG/DL Urine Leukocyte Esterase TRACE H NEGATIVE Urine RBC (Auto) NEGATIVE NEGATIVE Urine RBC NONE /HPF Urine WBC 10-25 H /HPF Urine Squamous Epithelial Cells 5-10 /HPF Urine Crystals NONE /LPF Urine Bacteria TRACE /HPF Urine Casts PRESENT /LPF Urine Hyaline Casts 25-50 H /LPF Urine Mucus SMALL H /LPF Urine Culture Indicated YES White Blood Count 7.4 4.3-11.0 10^3/uL Red Blood Count 3.73 L 4.35-5.85 10^6/uL Hemoglobin 13.7 11.5-16.0 G/DL Hematocrit 42 35-52 % Mean Corpuscular Volume 112 H 80-99 FL Mean Corpuscular Hemoglobin 37 H 25-34 PG Mean Corpuscular Hemoglobin Concent 33 32-36 G/DL Red Cell Distribution Width 13.1 10.0-14.5 % Platelet Count 346 130-400 10^3/uL Mean Platelet Volume 10.5 H 7.4-10.4 FL Neutrophils (%) (Auto) 54 42-75 % Lymphocytes (%) (Auto) 33 12-44 % Monocytes (%) (Auto) 7 0-12 % Eosinophils (%) (Auto) 6 0-10 % Basophils (%) (Auto) 0 0-10 % Neutrophils # (Auto) 4.0 1.8-7.8 X 10^3 Lymphocytes # (Auto) 2.5 1.0-4.0 X 10^3 Monocytes # (Auto) 0.5 0.0-1.0 X 10^3 Eosinophils # (Auto) 0.4 H 0.0-0.3 10^3/uL Basophils # (Auto) 0.0 0.0-0.1 10^3/uL D-Dimer 0.83 H 0.00-0.49 UG/ML Sodium Level 140 135-145 MMOL/L Potassium Level 3.6 3.6-5.0 MMOL/L Chloride Level 104 98-107 MMOL/L Carbon Dioxide Level 26 21-32 MMOL/L Anion Gap 10 5-14 MMOL/L Blood Urea Nitrogen 9 7-18 MG/DL Creatinine 1.05 0.60-1.30 MG/DL Estimat Glomerular Filtration Rate 52 BUN/Creatinine Ratio 9 Glucose Level 230 H 70-105 MG/DL Calcium Level 9.5 8.5-10.1 MG/DL Corrected Calcium 9.3 8.5-10.1 MG/DL Total Bilirubin 0.8 0.1-1.0 MG/DL Aspartate Amino Transf (AST/SGOT) 24 5-34 U/L Alanine Aminotransferase (ALT/SGPT) 18 0-55 U/L Alkaline Phosphatase 82 40-136 U/L B-Type Natriuretic Peptide 28.2 <100.0 PG/ML Total Protein 8.2 6.4-8.2 GM/DL Albumin 4.2 3.2-4.5 GM/DL Micro Results Microbiology 07/31/19 Influenza Types A,B Antigen (JORG[facility]O) - Final, Complete 07/31/19 Urine Culture - Final, Complete Escherichia coli My Orders Orders - GARIMA MONTES DE OCA Cbc With Automated Diff (07/31/19 14:13) Comprehensive Metabolic Panel (07/31/19 14:13) BNP (07/31/19 14:13) Fibrin Degradation Products (07/31/19 14:13) Ekg Tracing (07/31/19 14:13) O2 (07/31/19 14:13) Ed Iv/Invasive Line Start (07/31/19 14:13) Monitor-Rhythm Ecg Trace Only (07/31/19 14:13) Albuterol/Ipra Inhalation Soln (Duoneb I (07/31/19 14:15) Chest Pa/Lat (2 View) (07/31/19 14:13) Svn Small Volume Nebulizer (07/31/19 14:13) Influenza A And B Antigens (07/31/19 14:17) Ua Culture If Indicated (07/31/19 15:04) Urine Culture (07/31/19 14:52) Ct Angio Chest W (07/31/19 15:33) Ns Iv 1000 Ml (Sodium Chloride 0.9%) (07/31/19 15:45) Iohexol Injection (Omnipaque 350 Mg/Ml 1 (07/31/19 15:45) Received Contrast (Hold Metformin- Contr (07/31/19 15:45) Ns (Ivpb) (Sodium Chloride 0.9% Ivpb Bag (07/31/19 15:45) Medications Given in ED Vital Signs/I&O 07/31/19 07/31/19 07/31/19 07/31/19 14:10 14:30 15:05 17:30 Temp 36.5 36.5 Pulse 103 85 Resp 20 13 B/P (MAP) 156/85 (108) 139/77 (108) Pulse Ox 96 94 97 O2 Delivery Room Air Room Air Nasal Cannula Room Air O2 Flow Rate 2.00 2.00 Progress Progress Note : Time: 16:31 Progress Note I have seen and evaluated the patient. I have informed her and her family, (,son,daughter in law) of her laboratory and imaging studies. He wheezing cleared with breathing treatment. They agree with plan of care, plans for discharge, return precautions were given. Departure Impression Primary Impression: acute COPD exacerbation Disposition: 01 HOME, SELF-CARE Condition: Stable/Unchanged Departure-Patient Inst. Decision time for Depature: 16:31 Referrals: VERONICA CARY MD (PCP) Primary Care Physician HERMILO ALBA (Family) Primary Care Physician Patient Instructions: COPD Including Emphysema (DC), Exacerbation of COPD (DC) Add. Discharge Instructions: Take medications as directed. Call [facility] Al[facility] office to schedule an appointment for close follow-up to be seen within this week. Return back to the emergency room for worsening shortness of breath, worsening symptoms, or any other concerns as needed. Scripts Albuterol Sulfate (Albuterol Sulfate) 2.5 Mg/3 Ml Vial.neb 2.5 MG INH Q4H PRN for WHEEZING for 30 Days, #50 EA 1 Refill Prov: GARIMA MONTES DE OCA 07/31/19 Albuterol Sulfate (PROAIR HFA) 1 Puff Puff 2 PUFF IH Q4H for 30 Days, #1 INHALER 1 PUFF = 90 MCG Prov: GARIMA MONTES DE OCA 07/31/19 GARIMA MONTES DE OCA Jul 31, 2019 14:22
--- NOTE | 2019-07-31 15:04 | Diagnostic Imaging Report ---
INDICATION: Difficulty breathing. TECHNIQUE: PA and lateral views were obtained. FINDINGS: The heart size, mediastinal configuration, and pulmonary vascularity are within normal limits. There is no pleural effusion, pneumothorax, or pneumonia. The osseous structures are unremarkable. IMPRESSION: No acute cardiopulmonary abnormality. Dictated by: Dictated on workstation # [id number]
[2019-07-31 15:08] LABS: BASOPHILS % (AUTO) 0 % (0-10); EOSINOPHILS # (AUTO) 0.4 10^3/uL (0.0-0.3); EOSINOPHILS % (AUTO) 6 % (0-10); HEMATOCRIT 42 % (35-52); HEMOGLOBIN 13.7 G/DL (11.5-16.0); LYMPHOCYTES # (AUTO) 2.5 X 10^3 (1.0-4.0); LYMPHOCYTES % (AUTO) 33 % (12-44); MEAN CORPUSCULAR HEMOGLOBIN 37 PG (25-34); MEAN CORPUSCULAR HGB CONC 33 G/DL (32-36); MEAN CORPUSCULAR VOLUME 112 FL (80-99); MEAN PLATELET VOLUME 10.5 FL (7.4-10.4); MONOCYTES # (AUTO) 0.5 X 10^3 (0.0-1.0); MONOCYTES % (AUTO) 7 % (0-12); NEUTROPHILS % (AUTO) 54 % (42-75); PLATELET COUNT 346 10^3/uL (130-400); RED CELL DISTRIBUTION WIDTH 13.1 % (10.0-14.5); WHITE BLOOD COUNT 7.4 10^3/uL (4.3-11.0)
[2019-07-31 15:09] LABS: CLARITY,URINE SL CLOUDY; COLOR,URINE YELLOW; GLUCOSE, URINE (UA) NEGATIVE (NEGATIVE); KETONES,URINE TRACE (NEGATIVE); LEUKOCYTE ESTERASE ,URINE TRACE (NEGATIVE); NITRITE,URINE NEGATIVE (NEGATIVE); PH,URINE 5.5 (5-9); PROTEIN,URINE TRACE (NEGATIVE)
[2019-07-31 15:29] LABS: ALBUMIN 4.2 GM/DL (3.2-4.5); BILIRUBIN,TOTAL 0.8 MG/DL (0.1-1.0); CALCIUM 9.5 MG/DL (8.5-10.1); CREATININE SERUM 1.05 MG/DL (0.60-1.30); POTASSIUM 3.6 MMOL/L (3.6-5.0); TOTAL PROTEIN 8.2 GM/DL (6.4-8.2)
[2019-07-31 15:32] LABS: BACTERIA,URINE TRACE /HPF; BILIRUBIN,URINE 1+ (NEGATIVE); HYALINE CASTS, URINE 25-50 /LPF
[2019-07-31] MEDS ORDERED: IOHEXOL 350 MG/ML 100 ML (OMNIPAQUE 350) VIAL IV ONE (15:45)
[2019-07-31] MEDS ORDERED: NS 100 ML (IVPB) BAG IV ONE (15:45)
[2019-07-31] MEDS ORDERED: NS IV 1000 ML 1,000 ML IV SCH (15:45)
[2019-07-31] MEDS ORDERED: HOLD METFORMIN - RECEIVED CONTRAST 20 ML VIAL IV SCH (15:45)
--- NOTE | 2019-07-31 16:12 | Diagnostic Imaging Report ---
PROCEDURE: CT angiography of the chest with contrast. TECHNIQUE: Multiple contiguous axial images were obtained through the chest after uneventful bolus administration of intravenous contrast. 3D reconstructed CTA MIP acquisitions were also performed. Auto Exposure Controls were utilized during the CT exam to meet ALARA standards for radiation dose reduction. INDICATION: Chest pain. Shortness of breath. COMPARISON: 04/29/2019. FINDINGS: Note is again made of multiple subcentimeter pulmonary nodules in the lung bases bilaterally. These are essentially unchanged when compared to the prior examination. There is no pleural or pericardial fluid. There is no pneumothorax. The thoracic aorta is normal in caliber and without evidence of dissection. There are no filling defects within the pulmonary arteries to suggest pulmonary embolism. There is no pathologically enlarged adenopathy in the chest. There is an unchanged low-density left adrenal mass measuring approximately 3.4 x 2.6 cm. There is an unchanged well-circumscribed mass in the left upper quadrant. There are mild degenerative changes in the spine. IMPRESSION: No evidence of pulmonary embolism or aortic dissection. Unchanged multiple bibasilar subcentimeter noncalcified pulmonary nodules, stable from 2012. Unchanged left upper quadrant circumscribed mass. Unchanged fat-containing left adrenal mass. Dictated by: Dictated on workstation # [id number]
[2019-07-31] MEDS ORDERED: ALBU2.5V4 INH (16:33)
[2019-07-31] MEDS ORDERED: RT-ALBUINH IH (16:33)
[2019-07-31 17:30] VITALS: BP 139/77
== END 2019-07-31 17:29 | disposition home or self-care (01) ==
LOC: EDUNIT# 14:08 → ER 14:10
DX: J44.1 Chronic obstructive pulmonary disease with (acute) exacerbation (principal); J45.909 Unspecified asthma, uncomplicated; E11.9 Type 2 diabetes mellitus without complications; Z88.6 Allergy status to analgesic agent
CPT/HCPCS: 36415; 71046; 71275; 80053; 81000; 83880; 85025; 85379; 87077; 87088; 87186; 87804; 93005; 93041; 94640; 96360

== ENCOUNTER → 2019-11-07 | Outpatient (CLI) | payer MEDICARE ==
[~2019-11-07] MED LIST changes: +ALBU2.5V4 INH; +RT-ALBUINH IH
--- NOTE | 2019-11-07 13:11 | Diagnostic Imaging Report ---
INDICATION: Post menopausal state, screening for osteoporosis. COMPARISON: None available. FINDINGS: AP Spine L2-L4: [BMD (g/cm2): 0.921] [T-Score: -2.3] [Z-Score: -1.2] [BMD Previous: NA] [BMD % Change: NA] LT Hip Neck: [BMD (g/cm2): 0.650] [T-Score: -2.8] [Z-Score: -1.4] LT Hip Total: [BMD (g/cm2):0.746] [T-Score:-2.1] [Z-Score: -1.0] [BMD Previous: NA] [BMD % Change: NA] RT Hip Neck: [BMD (g/cm2):0.623] [T-Score:-3.0] [Z-Score:-1.6] RT Hip Total: [BMD (g/cm2):0.689] [T-score:-2.5] [Z-Score:-1.4] [BMD Previous:NA] [BMD % Change:NA] *Indicates significant change from prior examination based on 95% confidence level. World Health Organization criteria for BMD interpretation classify patients as Normal (T-score at or above -1.0), Osteopenic (T-score between -1.0 and -2.5) or Osteoporotic (T-score at or below -2.5). LIMITATIONS AND MODIFICATION: None. FRACTURE RISK (FRAX SCORE): The ten year probability of (%): Major Osteoporotic Fracture: [17.3] Hip Fracture: [5.6] IMPRESSION: 1. Osteoporosis. 2. Baseline examination. 3. See below National Osteoporosis Foundation guidelines on when to potentially initiate pharmacologic therapy. Based on the National Osteoporosis Foundation Guidelines, pharmacologic treatment should be initiated in any of the following, unless clinical conditions suggest otherwise: * Any patient with prior fragility fracture of the hip or vertebrae. A spine fracture indicates 5X risk for subsequent spine fracture and 2X risk for subsequent hip fracture. * Osteoporosis (T-score <-2.5). * Postmenopausal women and men age 50 and older with low bone mass/osteopenia (T-score between -1.0 and -2.5) by DXA and 10-year major osteoporotic fracture greater than 20% or a 10-year probability of hip fracture greater than 3%. These fracture risks are supplied above in the FRAX score, if applicable. * Clinician judgement and/or patient preferences may indicate treatment for people with 10-year fracture probabilities above or below these levels. Dictated by: Dictated on workstation # [id number]
== END ==
LOC: RAD 10:20
PROVIDERS: ATTEND Pediatrics
DX: Z13.820 Encounter for screening for osteoporosis (principal); M81.0 Age-related osteoporosis without current pathological fracture; Z78.0 Asymptomatic menopausal state
CPT/HCPCS: 77080

== ENCOUNTER 2020-03-22 10:35 | Emergency (ER) | payer MEDICARE ==
[~2020-03-22] VITALS: Ht 149 cm; Wt 70.0 kg
[2020-03-22] MEDS ORDERED: LACTATED RINGERS 1,000 ML IV SCH (11:00)
--- NOTE | 2020-03-22 11:04 | ED General ---
General Chief Complaint: Neurological Problems Stated Complaint: GENERAL WEAKNESS Source of Information: Patient Exam Limitations: No Limitations History of Present Illness Date Seen by Provider: Mar 22, 2020 Time Seen by Provider: 11:01 Initial Comments TO ER by ems from home with c/o general weakness and nausea with inability to eat for a few days. No fevers. Does c/o headache. Timing/Duration: 1-2 Days Severity: Moderate Associated Systoms: Denies Symptoms Allergies and Home Medications Allergies Coded Allergies: aspirin (Unverified Allergy, Mild, 04/01/09) Uncoded Allergies: [id number] (SULFA (SULFONAMIDE ANTIBIOTICS)) (Allergy, Mild, 04/01/09) Home Medications Acyclovir 400 Mg Tablet, 400 MG PO TID x7-10 days Prescribed by: GABY NOLAN on 07/01/16 1620 Albuterol Sulfate 1 Puff Puff, 2 PUFF IH Q4H 1 PUFF = 90 MCG Prescribed by: GARIMA MONTES DE OCA on 07/31/19 1633 Albuterol Sulfate 2.5 Mg/3 Ml Vial.neb, 2.5 MG INH Q4H PRN for WHEEZING Prescribed by: GARIMA MONTES DE OCA on 07/31/19 1633 Ciprofloxacin HCl 500 Mg Tablet, 500 MG PO BID, (Reported) Fluconazole 100 Mg Tablet, 100 MG PO DAILY Prescribed by: GABY NOLAN on 07/01/16 1609 Nitrofurantoin Macrocrystal 100 Mg Capsule, 100 MG PO BID Prescribed by: ZAHIRA HENSON on 02/20/18 1213 Ondansetron 8 Mg Tab.rapdis, 8 MG PO Q6H PRN for NAUSEA/VOMITING Prescribed by: GABY NOLAN on 07/01/16 1609 Oseltamivir Phosphate 75 Mg Cap, 75 MG PO BID Prescribed by: GABY NOLAN on 07/01/16 1609 Promethazine HCl/Codeine 118 Ml Syrup, 5 ML PO Q6H PRN for COUGH Prescribed by: GABY NOLAN on 07/01/16 1609 Patient Home Medication List Home Medication List Reviewed: Yes Review of Systems Review of Systems Constitutional: see HPI EENTM: see HPI Respiratory: no symptoms reported Cardiovascular: no symptoms reported Genitourinary: no symptoms reported Musculoskeletal: no symptoms reported Skin: no symptoms reported Psychiatric/Neurological: No Symptoms Reported Hematologic/Lymphatic: No Symptoms Reported Immunological/Allergic: no symptoms reported Past Vtnbxfk-Xazzal-Tzchud Hx Patient Social History 2nd Hand Smoke Exposure: No Recent Hopitalizations: No Immunizations Up To Date Tetanus Booster (TDap): Less than 5yrs Date of Pneumonia Vaccine: Mar 17, 2010 Past Medical History Surgeries: Yes (SURG BOTH WRIST CARP TUNNEL - LUMP REMOVED R BREAST, HYST, SPLENECTOMY) Gallbladder, Hysterectomy, Orthopedic Respiratory: Yes Asthma Cardiac: Yes (frequent dizzy spells and near syncope) Neurological: No Genitourinary: No UTI-Chronic Gastrointestinal: No Musculoskeletal: Yes Arthritis Endocrine: Yes Diabetes, Non-Insulin dep Cancer: No Psychosocial: Yes Anxiety, PTSD, Depression Integumentary: No Recent Skin Changes Blood Disorders: No Adverse Reaction/Blood Tranf: Yes (HAD "BLOTHCHES ALL OVER") Family Medical History No Pertinent Family Hx Physical Exam Vital Signs Vital Signs - First Documented 03/22/20 10:50 Temp 36.4 Pulse 71 Resp 16 B/P (MAP) 152/80 (104) Pulse Ox 100 O2 Delivery Room Air Capillary Refill : Height, Weight, BMI Height: 4'11.00" Weight: 170lbs. 0oz. 77.014860jy; 35.00 BMI Method:Stated General Appearance: No Apparent Distress, WD/WN Eyes: Bilateral Eye Normal Inspection, Bilateral Eye PERRL, Bilateral Eye EOMI Neck: Full Range of Motion, Normal Inspection Respiratory: Normal Breath Sounds, No Accessory Muscle Use, No Respiratory Distress Cardiovascular: Regular Rate, Rhythm Gastrointestinal: Normal Bowel Sounds, Non Tender, Soft Neurologic/Psychiatric: Alert, Other (alert, nearly euphoric actic, loud, laughing, very interactive with staff with is apparently quite different that she was upon EMS arrival to her house. She believes were at the hospital in [place], the year is 2006 and the month is january. ) Focused Exam Lactate Level 03/22/20 11:15: Lactic Acid Level 1.00 Lactic Acid Level Laboratory Tests Test 03/22/20 11:15 Lactic Acid Level 1.00 MMOL/L (0.50-2.00) Progress/Results/Core Measures Suspected Sepsis SIRS Temperature: Pulse: Respiratory Rate: Laboratory Tests 03/22/20 11:15: White Blood Count 7.3 Blood Pressure / Mean: 03/22/20 11:15: Lactic Acid Level 1.00 Laboratory Tests 03/22/20 11:15: Creatinine 1.01, Platelet Count 232, Total Bilirubin 1.8H Results/Orders Lab Results Laboratory Tests Test 03/22/20 11:02 03/22/20 11:15 Range/Units Urine Color YELLOW Urine Clarity TURBID Urine pH 5.5 5-9 Urine Specific [place] >=1.030 1.016-1.022 Urine Protein 1+ H NEGATIVE Urine Glucose (UA) NEGATIVE NEGATIVE Urine Ketones 1+ H NEGATIVE Urine Nitrite NEGATIVE NEGATIVE Urine Bilirubin 1+ H NEGATIVE Urine Urobilinogen 1.0 < = 1.0 MG/DL Urine Leukocyte Esterase 2+ H NEGATIVE Urine RBC (Auto) 1+ H NEGATIVE Urine RBC 0-2 /HPF Urine WBC TNTC H /HPF Urine Squamous Epithelial Cells NONE /HPF Urine Crystals NONE /LPF Urine Bacteria TRACE /HPF Urine Casts NONE /LPF Urine Mucus NEGATIVE /LPF Urine Culture Indicated YES Urine Opiates Screen NEGATIVE NEGATIVE Urine Oxycodone Screen NEGATIVE NEGATIVE Urine Methadone Screen NEGATIVE NEGATIVE Urine Propoxyphene Screen NEGATIVE NEGATIVE Urine Barbiturates Screen NEGATIVE NEGATIVE Ur Tricyclic Antidepressants Screen NEGATIVE NEGATIVE Urine Phencyclidine Screen NEGATIVE NEGATIVE Urine Amphetamines Screen NEGATIVE NEGATIVE Urine Methamphetamines Screen NEGATIVE NEGATIVE Urine Benzodiazepines Screen NEGATIVE NEGATIVE Urine Cocaine Screen NEGATIVE NEGATIVE Urine Cannabinoids Screen NEGATIVE NEGATIVE White Blood Count 7.3 4.3-11.0 10^3/uL Red Blood Count 3.44 L 3.80-5.11 10^6/uL Hemoglobin 12.9 11.5-16.0 g/dL Hematocrit 39 35-52 % Mean Corpuscular Volume 113 H 80-99 fL Mean Corpuscular Hemoglobin 38 H 25-34 pg Mean Corpuscular Hemoglobin Concent 33 32-36 g/dL Red Cell Distribution Width 13.9 10.0-14.5 % Platelet Count 232 130-400 10^3/uL Mean Platelet Volume 11.3 9.0-12.2 fL Immature Granulocyte % (Auto) 0 % Neutrophils (%) (Auto) 59 42-75 % Lymphocytes (%) (Auto) 33 12-44 % Monocytes (%) (Auto) 5 0-12 % Eosinophils (%) (Auto) 2 0-10 % Basophils (%) (Auto) 1 0-10 % Neutrophils # (Auto) 4.3 1.8-7.8 10^3/uL Lymphocytes # (Auto) 2.4 1.0-4.0 10^3/uL Monocytes # (Auto) 0.4 0.0-1.0 10^3/uL Eosinophils # (Auto) 0.2 0.0-0.3 10^3/uL Basophils # (Auto) 0.0 0.0-0.1 10^3/uL Immature Granulocyte # (Auto) 0.0 0.0-0.1 10^3/uL Sodium Level 137 135-145 MMOL/L Potassium Level 3.7 3.6-5.0 MMOL/L Chloride Level 102 98-107 MMOL/L Carbon Dioxide Level 24 21-32 MMOL/L Anion Gap 11 5-14 MMOL/L Blood Urea Nitrogen 10 7-18 MG/DL Creatinine 1.01 0.60-1.30 MG/DL Estimat Glomerular Filtration Rate 54 BUN/Creatinine Ratio 10 Glucose Level 132 H 70-105 MG/DL Lactic Acid Level 1.00 0.50-2.00 MMOL/L Calcium Level 9.1 8.5-10.1 MG/DL Corrected Calcium 9.1 8.5-10.1 MG/DL Total Bilirubin 1.8 H 0.1-1.0 MG/DL Aspartate Amino Transf (AST/SGOT) 24 5-34 U/L Alanine Aminotransferase (ALT/SGPT) 14 0-55 U/L Alkaline Phosphatase 62 40-136 U/L Total Protein 7.5 6.4-8.2 GM/DL Albumin 4.0 3.2-4.5 GM/DL My Orders Orders - SHAZIA JONES APRN Ct Head Wo (03/22/20 10:57) Cbc With Automated Diff (03/22/20 10:57) Comprehensive Metabolic Panel (03/22/20 10:57) Ua Culture If Indicated (03/22/20 10:57) Straight Cath (Urinary) (03/22/20 10:57) Ed Iv/Invasive Line Start (03/22/20 10:57) Lactated Ringers (Lr 1000 Ml Iv Solution (03/22/20 11:00) Drug Screen Stat (Urine) (03/22/20 10:58) Urine Culture (03/22/20 11:02) Ceftriaxone For Iv Use (Rocephin For I (03/22/20 11:45) Blood Culture (03/22/20 12:41) Lactic Acid Analyzer (03/22/20 12:41) Ct Angio Head/Neck (03/22/20 13:02) Ekg Tracing (03/22/20 13:10) Iohexol Injection (Omnipaque 350 Mg/Ml 1 (03/22/20 13:30) Received Contrast (Hold Metformin- Contr (03/22/20 13:30) Ns (Ivpb) (Sodium Chloride 0.9% Ivpb Bag (03/22/20 13:30) Medications Given in ED Current Medications Medications Dose Ordered Sig/Jose Route Start Time Stop Time Status Last Admin Dose Admin Ceftriaxone Sodium 1000 mg/ Sterile Water 10 ml @ 200 mls/hr ONCE ONCE IV 03/22/20 11:45 03/22/20 11:47 DC 03/22/20 12:23 200 MLS/HR Iohexol 75 ml ONCE ONCE IV 03/22/20 13:30 03/22/20 13:31 DC 03/22/20 13:32 75 ML Sodium Chloride 100 ml ONCE ONCE IV 03/22/20 13:30 03/22/20 13:31 DC 03/22/20 13:32 80 ML Vital Signs/I&O 03/22/20 10:50 Temp 36.4 Pulse 71 Resp 16 B/P (MAP) 152/80 (104) Pulse Ox 100 O2 Delivery Room Air Capillary Refill : Diagnostic Imaging Diagonstic Imaging: CT Comments NAME: ENRIQUE LEWIS [facility] REC#: [id number] PT STATUS: REG ER : 1950 PHYSICIAN: SHAZIA JONES APRN ADMIT DATE: 03/22/20/ER Draft Date of Exam:03/22/20 CT HEAD WO CLINICAL INDICATION: Patient not feeling well x3 days with generalized weakness. Patient having symptoms of confusion and altered mental status. EXAM: Axial CT scan of the brain without IV contrast with coronal and sagittal reformatted images. Auto Exposure Controls were utilized during the CT exam to meet ALARA standards for radiation dose reduction. COMPARISON: CT scan of the brain performed without IV contrast dated 04/29/2019. FINDINGS: There is interval development of small patchy areas of low density with transcortical involvement involving the high right parietal lobe in deep white matter of the right parietal lobe region and small amount of involvement involving the right occipital lobe which all appears to involve the right MCA distribution. There is also a very minimal sized area involving the right frontal lobe laterally. There is no evidence of hemorrhagic transformation. There is no brain herniation or midline shift. Stable mild diffuse brain parenchymal volume loss. There is no hydrocephalus. Basal cisterns are unremarkable. The extracranial soft tissue, skull, and orbits are unremarkable. Paranasal sinuses and mastoid air cells are clear. IMPRESSION: 1: There is interval development of an acute/subacute, patchy areas of cerebral infarcts involving the right frontal lobe, right parietal lobe, and right occipital lobe in the right MCA distribution. There is no evidence of hemorrhagic transformation or brain herniation. 2: Otherwise stable age-related brain parenchymal changes. Results of this report was discussed with Shazia Jones APRN via the telephone on 03/22/2020 at 1300 hours. Dictated on workstation # [id number] Dict: 03/22/20 1254 Trans: 03/22/20 1305 [facility] [id number] Interpreted by: KEZIA LEONE MD Electronically signed by: NAME: ENRIQUE LEWIS [facility] REC#: [id number] PT STATUS: ADM IN : 1950 PHYSICIAN: SHAZIA JONES APRN ADMIT DATE: 03/22/20 Draft Date of Exam:03/22/20 CT ANGIO HEAD/NECK Clinical indication: Patient with complaints of not feeling well x3 days with generalized weakness and demonstrating confusion and altered mental status. Recent head CT shows right cerebral hemisphere acute/subacute infarcts. Exams: 1: Head CT with IV contrast. Auto Exposure Controls were utilized during the CT exam to meet ALARA standards for radiation dose reduction. 2: CT angiogram of the head and neck performed with 100 cc of Omnipaque 350 IV contrast. Sagittal and coronal MIP reformations were created for better visualization of vascular anatomy. Comparison: Head CT without contrast dated 03/22/2020. Findings: Again seen small patchy areas of low density involving the cortex, subcortical regions and deep white matter of the high right parietal lobe, postcentral gyrus, right occipital lobe and small area involving the right frontal lobe region. There is mild leptomeningeal enhancement in the right parietal and occipital region. There is no significant brain parenchymal enhancement seen. There is no gross hemorrhagic transformation is visualized. Remainder of the brain parenchyma is stable. The brain parenchymal volume appears appropriate for patient's age. There is no hydrocephalus. CT Angiogram: Three-vessel aortic arch is seen. Of note, the proximal aspect of the brachycephalic artery and ascending aorta is not imaged on this exam. The visualized portions of the brachiocephalic artery is patent. The bilateral subclavian arteries, bilateral CCA, bilateral cervical ICA, and bilateral ECA are patent. The left petrous, cavernous and supraclinoid ICA is patent. There is a segment of intravascular clot seen within the distal right cavernous carotid artery which extends to the right supraclinoid ICA region. This intravascular clot causes severe stenosis. The visualized portions of the right ophthalmic artery is patent. There is no other intravascular thrombus or large vessel occlusion seen on this exam. There is slight tortuosity and kinking with mild narrowing involving the distal cervical right vertebral artery at the C2 vertebral body level. The bilateral cervical vertebral arteries are patent. Dominant right cervical vertebral artery is noted. The intradural vertebral arteries, basilar artery, bilateral superior cerebral arteries, and bilateral TECHNICAL ASSOCIATE are patent. There appears to be a very small caliber right posterior communicating artery. There is no definite left posterior communicating artery seen. There is a small caliber anterior communicating artery noted. The bilateral MCAs and their distal branches and bilateral ACAs and their distal branches are overall patent. There is slight diminished intravascular contrast within the right parietal infarct region and right occipital lobe region. The dural venous sinuses are unremarkable. There is a 7 mm low-density nodule involving the right thyroid gland. The neck soft tissue structures shows no other significant abnormality. The visualized upper lung hart are clear. There are hypertrophic anterior cervical spurs at the C5-C6 level. IMPRESSION: 1: There is a segment of intravascular thrombus within the distal cavernous right ICA which extends all the way to the supraclinoid right ICA region causing severe stenosis. There is no other area of intravascular thrombus or large vessel occlusion seen. 2: The remainder of the [place] and neck arterial vascular structures show no other significant abnormality. 3: Stable small patchy areas of acute/subacute infarct involving the right cerebral hemisphere, predominantly right MCA distribution. There is no evidence of parenchymal enhancement or hemorrhagic transformation. There is no brain herniation or midline shift. 4: There is a 7 mm low-density nodule involving right thyroid gland. Nonemergent thyroid ultrasound would better evaluate. Results of this report discussed with Shazia Jones/LOUISA via the telephone on 03/22/2020 at 1350 hours hours. Dictated on workstation # [id number] Dict: 03/22/20 1341 Trans: 03/22/20 1412 [facility] [id number] Interpreted by: KEZIA LEONE MD Electronically signed by: Departure Communication (Admissions) Scarlet RN spoke with patient's son who reports that this behavior alternating euphoria and lethargy is fairly normal for her and has been attributed to her Alzheimer's. 1303-spoke with the radiologist who reports acute to subacute small infarcts throughout the right hemisphere involving the right frontal lobe all and right parietal lobe in right MCA distribution. Radiologist report CT appearance of infarct is consistent with one that is about 2-3 days old, consistent with when her symptoms started. For this reason she is not a TPA candidate. NIH score is 10. We will proceed with EKG, angio head and neck CT 1430-with Dr. Bowles from the [facility] stroke [place], recommends transfer to a neuro-stroke ICU, there is no indication for thrombectomy here given duration of symptoms but she does need to be in the neuro ICU as this free-floating clot could mobilize distally causing significant neurologic deficit. No lovenox orheparin here. No TPA. 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 Referrals: VERONICA CARY MD (PCP) Primary Care Physician HERMILO VERDUGO (Family) Primary Care Physician NIH Stroke Scale NIH Stroke Scale NIH : Select: Initial Level of Consciousness: 0=Alert Level of Consciousness-Questio: 1=Answers one question Gaze: 0=Normal Visual Hart: 1=Partial hemianopia Facial Movement (Facial Paresi: 0=Normal symmetrical mnt Motor Function-Arms Right: 0=No drift Motor Function-Arms Left: 2=Some effort/gravity Motor Function-Legs Right: 0=No drift Motor Function-Legs Left: 2=Some effort/gravity Limb Ataxia: 2=Present in two limbs Sensory: 1=Mild to Moderate loss Best Language: 0=No aphasia Dysarthria: 0=Normal Extinction & Inattention: 1=Visual,tactile,auditory NIH Stroke Scale Score: 10 SHAZIA JONES CLOTH FINISHING RANGE TENDER Mar 22, 2020 11:04
[2020-03-22 11:13] LABS: CLARITY,URINE TURBID; COLOR,URINE YELLOW; GLUCOSE, URINE (UA) NEGATIVE (NEGATIVE); KETONES,URINE 1+ (NEGATIVE); LEUKOCYTE ESTERASE ,URINE 2+ (NEGATIVE); NITRITE,URINE NEGATIVE (NEGATIVE); PH,URINE 5.5 (5-9); PROTEIN,URINE 1+ (NEGATIVE)
--- NOTE | 2020-03-22 11:15 | NUR ---
PT NO LONGER EUPHORIC.
[2020-03-22 11:24] LABS: BACTERIA,URINE TRACE /HPF; BILIRUBIN,URINE 1+ (NEGATIVE); RBC,URINE 0-2 /HPF; WBC,URINE TNTC /HPF
[2020-03-22 11:25] LABS: AMPHETAMINE SCREEN, URINE NEGATIVE (NEGATIVE); BARBITURATE SCREEN URINE NEGATIVE (NEGATIVE); BENZODIAZEPINES SCREEN URINE NEGATIVE (NEGATIVE); CANNABINOID SCREEN, URINE NEGATIVE (NEGATIVE); COCAINE SCREEN URINE NEGATIVE (NEGATIVE); METHADONE STAT NEGATIVE (NEGATIVE); METHAMPHETAMINE SCREEN URINE S NEGATIVE (NEGATIVE); OPIATE SCREEN URINE NEGATIVE (NEGATIVE); OXYCODONE STAT NEGATIVE (NEGATIVE); PROPOXYPHENE STAT NEGATIVE (NEGATIVE); TRICYCLIC ANTIDEPRESSANTS SCRE NEGATIVE (NEGATIVE)
[2020-03-22 11:27] LABS: BASOPHILS % (AUTO) 1 % (0-10); EOSINOPHILS # (AUTO) 0.2 10^3/uL (0.0-0.3); EOSINOPHILS % (AUTO) 2 % (0-10); HEMATOCRIT 39 % (35-52); HEMOGLOBIN 12.9 g/dL (11.5-16.0); LYMPHOCYTES # (AUTO) 2.4 10^3/uL (1.0-4.0); LYMPHOCYTES % (AUTO) 33 % (12-44); MEAN CORPUSCULAR HEMOGLOBIN 38 pg (25-34); MEAN CORPUSCULAR HGB CONC 33 g/dL (32-36); MEAN CORPUSCULAR VOLUME 113 fL (80-99); MEAN PLATELET VOLUME 11.3 fL (9.0-12.2); MONOCYTES # (AUTO) 0.4 10^3/uL (0.0-1.0); MONOCYTES % (AUTO) 5 % (0-12); NEUTROPHILS # (AUTO) 4.3 10^3/uL (1.8-7.8); NEUTROPHILS % (AUTO) 59 % (42-75); PLATELET COUNT 232 10^3/uL (130-400); WHITE BLOOD COUNT 7.3 10^3/uL (4.3-11.0)
[2020-03-22 11:34] LABS: POTASSIUM 3.7 MMOL/L (3.6-5.0)
[2020-03-22 11:35] LABS: CALCIUM 9.1 MG/DL (8.5-10.1)
[2020-03-22 11:37] LABS: TOTAL PROTEIN 7.5 GM/DL (6.4-8.2)
[2020-03-22 11:38] LABS: BILIRUBIN,TOTAL 1.8 MG/DL (0.1-1.0)
[2020-03-22 11:40] LABS: CREATININE SERUM 1.01 MG/DL (0.60-1.30)
[2020-03-22] MEDS ORDERED: cefTRIAXone FOR IV USE 1,000 MG in WATER (STERILE) FOR INJECTION 10 ML IV ONE (11:45)
--- NOTE | 2020-03-22 11:51 | NUR ---
TALKED WITH SON ON THE PHONE. SON REPORTS THE EUPHORIA IS NORMAL FOR HER. SHAZIA NOTIFIED
--- NOTE | 2020-03-22 12:45 | NUR ---
ASSISTED PT TO COMMODE. PT WEAK ET X2 ASSIST.
--- NOTE | 2020-03-22 13:05 | Diagnostic Imaging Report ---
CLINICAL INDICATION: Patient not feeling well x3 days with generalized weakness. Patient having symptoms of confusion and altered mental status. EXAM: Axial CT scan of the brain without IV contrast with coronal and sagittal reformatted images. Auto Exposure Controls were utilized during the CT exam to meet ALARA standards for radiation dose reduction. COMPARISON: CT scan of the brain performed without IV contrast dated 04/29/2019. FINDINGS: There is interval development of small patchy areas of low density with transcortical involvement involving the high right parietal lobe in deep white matter of the right parietal lobe region and small amount of involvement involving the right occipital lobe which all appears to involve the right MCA distribution. There is also a very minimal sized area involving the right frontal lobe laterally. There is no evidence of hemorrhagic transformation. There is no brain herniation or midline shift. Stable mild diffuse brain parenchymal volume loss. There is no hydrocephalus. Basal cisterns are unremarkable. The extracranial soft tissue, skull, and orbits are unremarkable. Paranasal sinuses and mastoid air cells are clear. IMPRESSION: 1: There is interval development of an acute/subacute, patchy areas of cerebral infarcts involving the right frontal lobe, right parietal lobe, and right occipital lobe in the right MCA distribution. There is no evidence of hemorrhagic transformation or brain herniation. 2: Otherwise stable age-related brain parenchymal changes. Results of this report was discussed with Rivera Jones APRN via the telephone on 03/22/2020 at 1300 hours. Dictated by: Dictated on workstation # [id number]
--- NOTE | 2020-03-22 13:14 | NUR ---
DR PAYNE INTO SEE THIS TIME.
--- NOTE | 2020-03-22 13:27 | NUR ---
NIH PER SHAZIA AND MED STUDENT.
[2020-03-22] MEDS ORDERED: NS 100 ML (IVPB) BAG IV ONE (13:30)
[2020-03-22] MEDS ORDERED: HOLD METFORMIN - RECEIVED CONTRAST 20 ML VIAL IV SCH (13:30)
[2020-03-22] MEDS ORDERED: IOHEXOL 350 MG/ML 100 ML (OMNIPAQUE 350) VIAL IV ONE (13:30)
--- NOTE | 2020-03-22 13:45 | NUR ---
SHAZIA TALKING TO THE PT'S FAMILY AT THIS TIME
--- NOTE | 2020-03-22 13:48 | NUR ---
SLEEP LAB TECHNOLOGIST CONTACTED FOR BED.
--- NOTE | 2020-03-22 14:12 | Diagnostic Imaging Report ---
Clinical indication: Patient with complaints of not feeling well x3 days with generalized weakness and demonstrating confusion and altered mental status. Recent head CT shows right cerebral hemisphere acute/subacute infarcts. Exams: 1: Head CT with IV contrast. Auto Exposure Controls were utilized during the CT exam to meet ALARA standards for radiation dose reduction. 2: CT angiogram of the head and neck performed with 100 cc of Omnipaque 350 IV contrast. Sagittal and coronal MIP reformations were created for better visualization of vascular anatomy. Comparison: Head CT without contrast dated 03/22/2020. Findings: Again seen small patchy areas of low density involving the cortex, subcortical regions and deep white matter of the high right parietal lobe, postcentral gyrus, right occipital lobe and small area involving the right frontal lobe region. There is mild leptomeningeal enhancement in the right parietal and occipital region. There is no significant brain parenchymal enhancement seen. There is no gross hemorrhagic transformation is visualized. Remainder of the brain parenchyma is stable. The brain parenchymal volume appears appropriate for patient's age. There is no hydrocephalus. CT Angiogram: Three-vessel aortic arch is seen. Of note, the proximal aspect of the brachycephalic artery and ascending aorta is not imaged on this exam. The visualized portions of the brachiocephalic artery is patent. The bilateral subclavian arteries, bilateral CCA, bilateral cervical ICA, and bilateral ECA are patent. The left petrous, cavernous and supraclinoid ICA is patent. There is a segment of intravascular clot seen within the distal right cavernous carotid artery which extends to the right supraclinoid ICA region. This intravascular clot causes severe stenosis. The visualized portions of the right ophthalmic artery is patent. There is no other intravascular thrombus or large vessel occlusion seen on this exam. There is slight tortuosity and kinking with mild narrowing involving the distal cervical right vertebral artery at the C2 vertebral body level. The bilateral cervical vertebral arteries are patent. Dominant right cervical vertebral artery is noted. The intradural vertebral arteries, basilar artery, bilateral superior cerebral arteries, and bilateral EXPERIMENTAL PHYSICIST are patent. There appears to be a very small caliber right posterior communicating artery. There is no definite left posterior communicating artery seen. There is a small caliber anterior communicating artery noted. The bilateral MCAs and their distal branches and bilateral ACAs and their distal branches are overall patent. There is slight diminished intravascular contrast within the right parietal infarct region and right occipital lobe region. The dural venous sinuses are unremarkable. There is a 7 mm low-density nodule involving the right thyroid gland. The neck soft tissue structures shows no other significant abnormality. The visualized upper lung childers are clear. There are hypertrophic anterior cervical spurs at the C5-C6 level. IMPRESSION: 1: There is a segment of intravascular thrombus within the distal cavernous right ICA which extends all the way to the supraclinoid right ICA region causing severe stenosis. There is no other area of intravascular thrombus or large vessel occlusion seen. 2: The remainder of the [place] and neck arterial vascular structures show no other significant abnormality. 3: Stable small patchy areas of acute/subacute infarct involving the right cerebral hemisphere, predominantly right MCA distribution. There is no evidence of parenchymal enhancement or hemorrhagic transformation. There is no brain herniation or midline shift. 4: There is a 7 mm low-density nodule involving right thyroid gland. Nonemergent thyroid ultrasound would better evaluate. Results of this report discussed with Rivera Jones/LOUISA via the telephone on 03/22/2020 at 1350 hours hours. Dictated by: Dictated on workstation # [id number]
--- NOTE | 2020-03-22 14:41 | NUR ---
PLAN IS TO SEND PT TO [facility].
--- NOTE | 2020-03-22 15:55 | NUR ---
PT'S ALLOWD BACK DUE TO SEVERITY OF SITUATION BEFORE BEING TRANSFERRED TO .
--- NOTE | 2020-03-22 17:03 | NUR ---
[facility] HERE TO GET PT.
--- NOTE | 2020-03-22 17:04 | NUR ---
BRETT NOTIFIED THAT PT WOULD BE LEAVING SHORTLY.
[2020-03-22 17:08] VITALS: BP 140/62
--- NOTE | 2020-03-22 21:14 | History & Physical-Hospitalist ---
History of Present Illness HPI/Chief Complaint CC: AMS HPI: This is a 70yoWF who presented to the ER with AMS per family. She has a long hx of dementia and labile moods and inappropriate answers but she was dramatically different than usual. UTI was dx in ER and upon w/u subacute CVA dx and left sided weakness noted although patient did not notice left sided weakn ess due to dementia. Patient was assessed by CVA protocol and was transferred for further evaluation. CTA 1: There is a segment of intravascular thrombus within the distal cavernous right ICA which extends all the way to the supraclinoid right ICA region causing severe stenosis. There is no other area of intravascular thrombus or large vessel occlusion seen. Source: patient Exam Limitations: no limitations Date Seen 03/22/20 Time Seen by a Provider: 12:00 Attending Physician Cheryl Mac David F MD Referring Physician Date of Admission Mar 22, 2020 at 14:01 Home Medications & Allergies Home Medications Reviewed patient Home Medication Reconciliation performed by pharmacy medication reconciliations cmm technician and/or nursing. Patients Allergies have been reviewed. Allergies Allergies Coded Allergies aspirin (Unverified Allergy, Mild, 04/01/09) Uncoded Allergies [id number] (SULFA (SULFONAMIDE ANTIBIOTICS)) ( Allergy, Mild, 04/01/09) Past Fbyrkgh-Tkyscg-Mdkfot Hx Past Med/Social Hx: Reviewed Nursing Past Med/Soc Hx, Reviewed and Corrections made Patient Social History Marrital Status: single Employed/Student: retired Alcohol Use: Denies Use Recreational Drug Use: No Smoking Status: Never a Smoker 2nd Hand Smoke Exposure: No Recent Foreign Travel: No Contact w/other who traveled: No Recent Hopitalizations: No Recent Infectious Disease Expo: No Immunizations Up To Date Tetanus Booster (TDap): Less than 5yrs Date of Pneumonia Vaccine: Mar 17, 2010 Past Medical History Surgeries: Gallbladder, Hysterectomy, Orthopedic Neurological: Dementia Genitourinary: UTI-Chronic Musculoskeletal: Arthritis Endocrine: Diabetes, Non-Insulin dep Psychosocial: Anxiety, PTSD, Depression Skin/Integumentary: Recent Skin Changes History of Blood Disorders: No Adverse Reaction to Blood Jordan: Yes (HAD "BLOTHCHES ALL OVER") Family History No Pertinent Family Hx Review of Systems Constitutional: see HPI, dizziness, weakness Psychiatric/Neurological: Weakness Physical Exam Physical Exam Vital Signs Vital Signs - First Documented 03/22/20 10:50 Temp 36.4 Pulse 71 Resp 16 B/P (MAP) 152/80 (104) Pulse Ox 100 O2 Delivery Room Air Capillary Refill : Less Than 3 Seconds Height, Weight, BMI Height: 4'11.00" Weight: 170lbs. 0oz. 77.144196to; 31.00 BMI Method:Stated General Appearance: No Apparent Distress, Chronically ill Eyes: Right Eye Normal Inspection, Right Eye PERRL HEENT: PERRL/EOMI, Normal ENT Inspection, Pharynx Normal, Moist Mucous Membranes Neck: Full Range of Motion, Normal Inspection, Non Tender Respiratory: Chest Non Tender, Lungs Clear, Normal Breath Sounds, No Accessory Muscle Use, No Respiratory Distress Cardiovascular: Regular Rate, Rhythm, No Edema, No Gallop, No JVD, No Murmur, Normal Peripheral Pulses Gastrointestinal: Normal Bowel Sounds, No Organomegaly, No Pulsatile Mass, Non Tender, Soft Back: Normal Inspection, No CVA Tenderness, No Vertebral Tenderness Extremity: Normal Capillary Refill, Normal Inspection, Normal Range of Motion, Non Tender, No Calf Tenderness, No Pedal Edema Neurologic/Psychiatric: Alert, No Motor/Sensory Deficits, Normal Mood/Affect, Abnormal Gait, Disoriented, Motor Weakness (left sided 3/5) Skin: Normal Color, Warm/Dry Lymphatic: No Adenopathy Results Results/Procedures Labs Laboratory Tests 03/22/20 11:15 Patient resulted labs reviewed. Assessment/Plan Admission Diagnosis Assessment: AMS Subacute CVA with ICA thrombosis Left sided weakness Dementia Labile behavior chronic Acute UTI DM Plan: Tx to [facility] Admission Status: Inpatient Order (span 2 midnights) Reason for Inpatient Admission: CVA and UTI Diagnosis/Problems Diagnosis/Problems (1) Acute ischemic right MCA stroke Status: Acute Clinical Quality Measures Stroke: Date of last known well: Mar 19, 2020 CHERYL MAC DO Mar 22, 2020 21:14
[2020-03-22] MEDS ORDERED: LOPERAMIDE 2 MG (IMODIUM) TABLET PO PRN (21:15)
[2020-03-22] MEDS ORDERED: ACETAMINOPHEN 500 MG TAB (TYLENOL) PO PRN (21:15)
[2020-03-22] MEDS ORDERED: CALCIUM CARBONATE 500 MG (TUMS) TAB.CHEW PO PRN (21:15)
[2020-03-22] MEDS ORDERED: HYDROcodone/APAP 5 MG/325 MG (LORTAB) TAB PO PRN (21:15)
[2020-03-22] MEDS ORDERED: BISACODYL 10 MG SUPP (DULCOLAX) PR PRN (21:15)
[2020-03-22] MEDS ORDERED: diphenhydrAMINE 25 MG TAB (BENADRYL) PO PRN (21:15)
[2020-03-22] MEDS ORDERED: ONDANSETRON 4 MG/2 ML (SDV) Z0FRAN IVP PRN (21:15)
[2020-03-22] MEDS ORDERED: ALPRAZolam 0.25 MG (XANAX) TAB PO PRN (21:15)
[2020-03-22] MEDS ORDERED: MELATONIN 3 MG TABLET PO PRN (21:15)
[2020-03-22] MEDS ORDERED: LACTULOSE SYRUP 10GM/15ML (ENULOSE) 30ML UDC PO PRN (21:15)
[2020-03-22] MEDS ORDERED: DOCUSATE SODIUM 100 MG (COLACE) CAP PO PRN (21:15)
[2020-03-22] MEDS ORDERED: ENOXAPARIN 40 MG/0.4 ML (LOVENOX) SYR SC SCH (21:15)
[2020-03-23] MEDS ORDERED: ASPIRIN E.C. 81 MG (ECOTRIN) TAB PO SCH (09:00)
[2020-03-23] MEDS ORDERED: SENNA W/DOCUSATE (SENOKOT S) TABLET PO SCH (09:00)
[2020-03-23] MEDS ORDERED: cefTRIAXone FOR IV USE 1,000 MG in WATER (STERILE) FOR INJECTION 10 ML IV SCH (10:00)
== END 2020-03-22 17:08 | disposition short-term general hospital (02) ==
LOC: EDUNIT# 10:35 → ER 10:37 → 4TH 14:01 → UNDOADMIN 14:01
DX: N39.0 Urinary tract infection, site not specified (principal); R41.82 Altered mental status, unspecified; I65.21 Occlusion and stenosis of right carotid artery; I63.511 Cerebral infarction due to unspecified occlusion or stenosis of right middle cerebral artery; J45.909 Unspecified asthma, uncomplicated; Z88.9 Allergy status to unspecified drugs, medicaments and biological substances; Z88.2 Allergy status to sulfonamides
CPT/HCPCS: 36415; 51701; 70450; 70496; 70498; 80053; 80306; 81000; 83605; 85025; 87040; 87077; 87088; 87186

== ENCOUNTER 2020-03-28 12:31 | Inpatient (IN) | payer MEDICARE ==
[~2020-03-28] VITALS: Ht 149.9 cm; Wt 74.4 kg
[2020-03-28] MEDS ORDERED: FLEET ENEMA ADULT 1 EA BTL PR PRN (13:15)
[2020-03-28] MEDS ORDERED: LOPERAMIDE 2 MG (IMODIUM) TABLET PO PRN (13:15)
[2020-03-28] MEDS ORDERED: CALCIUM CARBONATE 500 MG (TUMS) TAB.CHEW PO PRN (13:15)
[2020-03-28] MEDS ORDERED: ALPRAZolam 0.25 MG (XANAX) TAB PO PRN (13:15)
[2020-03-28] MEDS ORDERED: LACTULOSE SYRUP 10GM/15ML (ENULOSE) 30ML UDC PO PRN (13:15)
[2020-03-28] MEDS ORDERED: ONDANSETRON 4 MG (ZOFRAN) ORAL DISSOLVE TAB PO PRN (13:15)
[2020-03-28] MEDS ORDERED: ACETAMINOPHEN 500 MG TAB (TYLENOL) PO PRN (13:15)
[2020-03-28] MEDS ORDERED: diphenhydrAMINE 25 MG TAB (BENADRYL) PO PRN (13:15)
[2020-03-28] MEDS ORDERED: BISACODYL 10 MG SUPP (DULCOLAX) PR PRN (13:15)
[2020-03-28] MEDS ORDERED: ENOXAPARIN 40 MG/0.4 ML (LOVENOX) SYR SC SCH (13:15)
[2020-03-28] MEDS ORDERED: guaiFENesin/CODEINE (ROBITUSSIN AC) 10ML UDC PO PRN (13:15)
[2020-03-28] MEDS ORDERED: CNC1KV IM (15:06)
[2020-03-28] MEDS ORDERED: VITA1TAB17 PO (15:06)
[2020-03-28] MEDS ORDERED: LOSA25TA41 PO (15:06)
[2020-03-28] MEDS ORDERED: APIX5TAB PO (15:06)
[2020-03-28] MEDS ORDERED: ATOR40TA70 PO (15:06)
--- NOTE | 2020-03-28 15:06 | NUR ---
THE MED REC WAS ENTERED USING THE [facility] DISCHARGE ORDERS Addendum: 04/04/20 at 1155 by DREW BENNETT CPhT PT WAS NOT ABLE TO TELL ME ABOUT HER MEDICATIONS, THEREFORE I CALLED HER (VIVI) TO COMPLETE THE MED REC ACCORDING TO VIVI PT WAS NOT TAKING ANY PRESCRIPTION OR OTC MEDICATIONS PRIOR TO , AND FOR THAT REASON HER MED REC WAS SET TO "NO MEDICATIONS" I REMOVED THE FOLLOWING MEDICATIONS: ELIQUIS 5MG ATORVASTATIN 40MG LOSARTAN 25MG VITAMIN B COMPLEX VIT B-12 INJECTIONS
--- NOTE | 2020-03-28 18:05 | NUR ---
Tita Lewis admitted to room 233-1, with an admitting diagnosis of Ischemic CVA, on 03/28/20 from via EMS, accompanied by staff.TITA LEWIS introduced to surroundings, call light, bed controls, phone, TV, temperature control, lights, meal times, smoking policy, visitor policy, side rail policy, bathrooms and showers. Patient Rights given to patient in the handbook.TITA LEWIS verbalizes understanding that [facility] is not responsible for the loss or damage to any personal effects or valuables that are kept in the patients possession during their hospitalization. The following Patient Care Plans were discussed with the patient: Discharge Planning, Falls, and CVA. TITA LEWIS verbalizes understanding of Interdisciplinary Patient Education. Patient and/or family were informed about the Rapid Response Team and its purpose. Patient received Patient Rights Booklet, which includes Privacy Act Statement and Data Collection Information Summary.
--- NOTE | 2020-03-28 18:16 | PM&R Post Admission Assessment ---
PM&R HP Date of Visit: Mar 28, 2020 Time of Visit: 18:30 History of Present Illness CC: CVA HPI: This is a 70yoWF clinic patient of [facility] who I had seen in [facility] ER for potential admit for UTI and confusion but she required transfer to due to right ICA thrombus due to left sided weakness. The symptoms apparently began 3 days prior at home so she was not a tPA candidate. It was difficult to assess the patient because of baseline dementia. Her family reported at that time her confusion does vary day to day with her dementia. Currently it is difficult to get a detailed report on how she is doing because of inappropriate answers due to dementia. I reviewed chart for details. She has left sided weakness and leans to the left. PLOF was independent. [facility] note: Name: Tita Hunter Date Of : 1950 Age: 70 years Admit date: 03/22/2020 Discharge date: 03/28/2020 Discharge Attending: Arvind Pinedo Discharge Summary Completed By: Dimitry Grayson MD Service: Neurology Stroke Reason for hospitalization: Stroke with cerebral ischemia (HCC) [I63.9] Primary Discharge Diagnosis: Stroke with cerebral ischemia (HCC) Hospital Diagnoses: Hospital Problems Active Problems * (Principal) Stroke with cerebral ischemia (HCC) Stroke (cerebrum) (HCC) Significant Past Medical History Asthma Depression DM (diabetes mellitus) (HCC) Hypertension Allergies Brief Hospital Course Tita Hunter is a 70 y.o. female with a PMH significant for Alzheimer, COPD not on home oxygen, DM2, HTN, and frequent UTIs who only does PRN albuterol nebulizer treatments presented at an OSH with left sided weakness, ataxia, and left sided sensory loss for 3 days. CTA revealed right scattered MCA stroke with right ICA thrombus extending the ophthalmic and communicating segments of R ICA. tPA or EVT not provided due to delayed time onset of symptoms. Patient found to have concurrent UTI. She was transferred to [facility] for medical management, NIH of 9 on arrival. She was transferred to nICU after heparin drip was started. CT head on 03/24 was stable and patient switched to high dose heparin. On 03/25 transitioned to Eliquis from heparin and deemed stable for transfer to floor. Right MCA border zone ischemic stroke - Etiology: near-occlusive thrombus of distal R ICA - MRI Head: Scattered right cerebral infarcts in right MCA border zones - Echo: EF 55%, no PFO, LA: 3.37 cm - LDL: 129 - A1c: 6.9 - Was treated with heparin gtt for 2-3 days, then transitioned to Eliquis - Follow up CT head on 03/24 was negative for significant hemorrhagic conversion - Telemetry: Paroxysmal A.fib Plan: > Anticoagulation therapy: Apixaban 5 mg BID > PT/OT/SIGNING TEACHER consulted > Rehab consulted for assessment of post stroke care > Losartan 12.5 mg daily > Atorvastatin 40 mg Paroxysmal Atrial Fibrillation - CHADSVASC: 5 (age, female, stroke, DM) - Rate controlled without meds for now Plan: > Apixaban 5 mg BID as above DM - A1c: 6.9 Plan: > Diabetic diet Vitamin B12 deficiency - B12: 89 > Supplemental B12 IM for 7 days, followed by daily oral supplementation UTI, resolved - Bacteria on UA - Urine culture: urogenital microbiota - Completed a 5 day course of Rocephin COPD > PRN albuterol & ipratropium Depression > GENETICS PHYSICIAN Sertraline 200 mg Possible trigger finger - Left 3rd digit cannot be passively extended Past [place]-Hhelxu-Yfjent Hx Past Med/Social Hx: Reviewed Nursing Past Med/Soc Hx, Reviewed and Corrections made Patient Social History Marrital Status: single Employed/Student: retired Smoking Status: Unknown if Ever Smoked 2nd Hand Smoke Exposure: No Recent Hopitalizations: No Immunizations Up To Date Tetanus Booster (TDap): Less than 5yrs Date of Pneumonia Vaccine: Mar 17, 2010 Past Medical History Surgeries: Gallbladder, Hysterectomy, Orthopedic Cardiac: Atrial Fibrillation Neurological: Dementia, Stroke (03/22/20) Genitourinary: Bladder Infection, UTI-Chronic Musculoskeletal: Arthritis Endocrine: Diabetes, Non-Insulin dep Psychosocial: Anxiety, PTSD, Depression Skin/Integumentary: Recent Skin Changes History of Blood Disorders: No Adverse Reaction to Blood Jordan: Yes (HAD "BLOTHCHES ALL OVER") Family History No Pertinent Family Hx PM&R Allergy/Meds/Data Review Allergies Coded Allergies: aspirin (Unverified Allergy, Mild, 04/01/09) Uncoded Allergies: [id number] (SULFA (SULFONAMIDE ANTIBIOTICS)) (Allergy, Mild, 04/01/09) Home Medications Scheduled Apixaban (Eliquis), 5 MG PO BID, (Reported) Atorvastatin Calcium (Atorvastatin Calcium), 40 MG PO DAILY, (Reported) Cyanocobalamin (Cyanocobalamin Injection), 1 ML IM DAILY, (Reported) Losartan Potassium (Losartan Potassium), 12.5 MG PO DAILY, (Reported) Vitamin B Complex (Vitamin B Complex), 1 EACH PO DAILY, (Reported) Discontinued Medications Acyclovir (Acyclovir), 400 MG PO TID Discontinued Reason: No Longer Taking Albuterol Sulfate (Proair Hfa), 2 PUFF IH Q4H Discontinued Reason: No Longer Taking Albuterol Sulfate (Albuterol Sulfate), 2.5 MG INH Q4H PRN for WHEEZING Discontinued Reason: No Longer Taking Ciprofloxacin HCl (Cipro), 500 MG PO BID, (Reported) Discontinued Reason: No Longer Taking Doxazosin Mesylate (Doxazosin Mesylate), (Reported) Discontinued Reason: No Longer Taking Fluconazole (Fluconazole), 100 MG PO DAILY Discontinued Reason: No Longer Taking Losartan/Hydrochlorothiazide (Losartan-Hctz 50-12.5 mg Tab), (Reported) Discontinued Reason: No Longer Taking Metoprolol Tartrate (Metoprolol Tartrate), (Reported) Discontinued Reason: No Longer Taking Nitrofurantoin Macrocrystal (Nitrofurantoin), 100 MG PO BID Discontinued Reason: No Longer Taking Ondansetron (Ondansetron Odt), 8 MG PO Q6H PRN for NAUSEA/VOMITING Discontinued Reason: No Longer Taking Oseltamivir Phosphate (Tamiflu), 75 MG PO BID Discontinued Reason: No Longer Taking Primidone (Primidone), (Reported) Discontinued Reason: No Longer Taking Promethazine HCl/Codeine (Promethazine-Codeine Syrup), 5 ML PO Q6H PRN for COUGH Discontinued Reason: No Longer Taking Current Medications Current Medications Reviewed Review of Systems Constitutional: see HPI, dizziness, weakness Psychiatric/Neurological: Other (confusion) Physical Exam Physical Exam Vital Signs Capillary Refill : Height, Weight, BMI Height: 4'11.00" Weight: 170lbs. 0oz. 77.076900np; 31.00 BMI Method:Stated General Appearance: No Apparent Distress, WD/WN, Chronically ill Eyes: Bilateral Eye Normal Inspection, Bilateral Eye PERRL HEENT: PERRL/EOMI, Normal ENT Inspection, Pharynx Normal Neck: Full Range of Motion, Normal Inspection, Non Tender, Supple, Carotid Bruit Respiratory: Chest Non Tender, Lungs Clear, Normal Breath Sounds, No Accessory Muscle Use, No Respiratory Distress Cardiovascular: No Edema, No Gallop, No JVD, No Murmur, Normal Peripheral Pulses, Irregularly Irregular Gastrointestinal: Normal Bowel Sounds, No Organomegaly, No Pulsatile Mass, Non Tender, Soft Back: Normal Inspection, No CVA Tenderness, No Vertebral Tenderness Extremity: Normal Capillary Refill, Normal Inspection, Normal Range of Motion, Non Tender, No Calf Tenderness, No Pedal Edema Neurologic/Psychiatric: Alert, No Motor/Sensory Deficits, Normal Mood/Affect, blending tank helper II-XII Norm as Tested, Abnormal Gait, Disoriented, Facial Droop (left), Motor Weakness (left sided partial flaccidity) Skin: Normal Color, Warm/Dry Lymphatic: No Adenopathy PM&R Medical Assessment & Plan REHAB/MEDICAL ASSESSMENT AND PLAN: REHAB IMPAIRMENT GROUP: CVA with left sided weakness ETIOLOGIC DIAGNOSIS: CVA with left sided weakness The comorbidities that impact the patients function and/or functional outcome by: baseline dementia, left sided weakness, difficulty communicating from dementia REHAB PLAN: The patient is being admitted to our comprehensive inpatient rehabilitation facility and can tolerate the intensity of service consisting of at least: 180 minutes of therapy a day, 5 out of 7 days a week Rehab treatment will consist of: PT OT will focus on regaining basic ambulatory skills and work on fall prevention and ST will help clear confusion and work on retention The patient/family has a good understanding of our discharge process and will benefit from an interdisciplinary inpatient rehabilitation program. The patient has potential to make improvement and is in need of at least two of the foll owing multidisciplinary therapies including but not limited to physical, occupational, speech, and prosthetics and orthotics. Additionally the patient will need services from respiratory, nutritional services, wound care, psychology, etc. (Customize this to each patient). Given the patients complex condition and risk of further medical complications, rehabilitation services cannot be safely or effectively provided at a lower level of care such as a halfway facility. BARRIERS TO DISCHARGE: Dementia is severe ESTIMATED LOS: 14 days DISPOSITION: Home RELEVANT CHANGES SINCE PREADMISSION SCREENING: I have compared the patients medical and functional status at the time of the preadmission screening and there are: no changes PROGNOSIS: Guarded REHABILITATION GOALS: 1. PT OT will focus on regaining basic ambulatory skills and work on fall prevention and ST will help clear confusion and work on retention All the above goals were reviewed with the patient and he/she is in agreement. By signing this document, I acknowledge that I have personally performed a full physical examination on this patient within 24 hours of admission to this inpatient rehabilitation facility and have determined the patient to be able to tolerate the above course of treatment at an intensive level for a reasonable period of time. I will be completing a detailed individualized Plan of Care for this patient by day #4 of the patients stay based upon the Preadmission Screen, the Post-Admission Evaluation, and the therapy evaluations. Admission Dx/Comorbidities: (1) Acute ischemic right MCA stroke Status: Acute ICD Codes: I63.511 - Cerebral infarction due to unspecified occlusion or stenosis of right middle cerebral artery (2) Atrial fibrillation ICD Codes: I48.91 - Unspecified atrial fibrillation (3) History of UTI ICD Codes: Z87.440 - Personal history of urinary (tract) infections (4) Dementia ICD Codes: F03.90 - Unspecified dementia without behavioral disturbance (5) Left-sided weakness ICD Codes: R53.1 - Weakness (6) COPD (chronic obstructive pulmonary disease) ICD Codes: J44.9 - Chronic obstructive pulmonary disease, unspecified (7) B12 deficiency ICD Codes: E53.8 - Deficiency of other specified B group vitamins (8) Altered mental status Status: Acute ICD Codes: R41.82 - Altered mental status, unspecified (9) Diabetes mellitus ICD Codes: E11.9 - Type 2 diabetes mellitus without complications (10) Hypertension ICD Codes: I10 - Essential (primary) hypertension Assessment/Plan Assessment and Plan Assess & Plan/Chief Complaint Assessment: 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 02/21/20 transferred to New onset AF [facility] DM HTN COPD Dementia Confusion at baseline Vit B12 deficiency Left sided weakness h/o UTI Plan: IRF protocol [facility] Cardiology consultation Monitor closely KULDEEP PAYNE DO Mar 28, 2020 18:16
[2020-03-28 18:55] VITALS: BP 138/63
[2020-03-28 18:58] VITALS: BP 138/63
--- NOTE | 2020-03-28 19:26 | NUR ---
Admission process completed with the patient. Some assist received from patient's over the phone. Patient is a poor historian.
[2020-03-28] MEDS: polyethylene glycoL POWDER 17 GM (MIRALAX) PACK PO SCH (20:50)
[2020-03-28] MEDS: APIXABAN 5 MG (ELIQUIS) TABLET PO SCH (20:50)
[2020-03-28] MEDS: SENNA W/DOCUSATE (SENOKOT S) TABLET PO SCH (20:50)
[2020-03-29 04:37] LABS: BASOPHILS % (AUTO) 0 % (0-10); EOSINOPHILS # (AUTO) 0.3 10^3/uL (0.0-0.3); EOSINOPHILS % (AUTO) 3 % (0-10); HEMATOCRIT 36 % (35-52); HEMOGLOBIN 12.3 g/dL (11.5-16.0); LYMPHOCYTES # (AUTO) 3.8 10^3/uL (1.0-4.0); LYMPHOCYTES % (AUTO) 39 % (12-44); MEAN CORPUSCULAR HEMOGLOBIN 38 pg (25-34); MEAN CORPUSCULAR HGB CONC 34 g/dL (32-36); MEAN CORPUSCULAR VOLUME 110 fL (80-99); MEAN PLATELET VOLUME 11.1 fL (9.0-12.2); MONOCYTES # (AUTO) 0.8 10^3/uL (0.0-1.0); MONOCYTES % (AUTO) 9 % (0-12); NEUTROPHILS # (AUTO) 4.6 10^3/uL (1.8-7.8); NEUTROPHILS % (AUTO) 48 % (42-75); PLATELET COUNT 271 10^3/uL (130-400); WHITE BLOOD COUNT 9.7 10^3/uL (4.3-11.0)
[2020-03-29 04:51] LABS: ALBUMIN 3.7 GM/DL (3.2-4.5); CHLORIDE 102 MMOL/L (98-107); POTASSIUM 3.8 MMOL/L (3.6-5.0); SODIUM 137 MMOL/L (135-145)
[2020-03-29 04:52] LABS: CALCIUM 8.9 MG/DL (8.5-10.1)
[2020-03-29 04:53] LABS: GLUCOSE 129 MG/DL (70-105); TOTAL PROTEIN 7.2 GM/DL (6.4-8.2)
[2020-03-29 04:54] LABS: CARBON DIOXIDE 22 MMOL/L (21-32)
[2020-03-29 04:55] LABS: BILIRUBIN,TOTAL 0.7 MG/DL (0.1-1.0)
[2020-03-29 04:57] LABS: ALKALINE PHOSPHATASE 79 U/L (40-136); CREATININE SERUM 0.78 MG/DL (0.60-1.30); GFR ESTIMATED > 60
[2020-03-29 04:58] LABS: BUN/CREATININE RATIO 21
[2020-03-29] MEDS: inSUlin ASPART (NovoLOG) 1 UNIT/0.01 ML (CHARGE PER UNIT) SC SCH ×4 (04:59→20:20)
[2020-03-29 05:00] LABS: ALANINE AMINOTRANSFERASE 29 U/L (0-55)
[2020-03-29 05:48] VITALS: BP 125/62
[2020-03-29] MEDS: MULTIVIT W/MINERALS TAB (THERAGRAN M) PO SCH (06:33)
[2020-03-29 08:13] VITALS: BP 132/66
[2020-03-29] MEDS: LOSARTAN 25 MG (COZAAR) TAB PO SCH (08:15)
[2020-03-29] MEDS: SENNA W/DOCUSATE (SENOKOT S) TABLET PO SCH ×2 (08:15→20:26)
[2020-03-29] MEDS: polyethylene glycoL POWDER 17 GM (MIRALAX) PACK PO SCH ×2 (08:16→20:26)
[2020-03-29] MEDS: DOCUSATE SODIUM 100 MG (COLACE) CAP PO PRN ×2 (08:16→20:26)
[2020-03-29] MEDS: APIXABAN 5 MG (ELIQUIS) TABLET PO SCH ×2 (08:16→20:26)
[2020-03-29] MEDS: CYANOCOBALAMIN INJ 1000 MCG/ML IM SCH (08:17)
--- NOTE | 2020-03-29 10:08 | Occupational Therapy Eval ---
OT Evaluation-General/PLF Medical Diagnosis Admission Date Mar 28, 2020 at 18:05 Medical Diagnosis: CVA- L side weakness Onset Date: Feb 21, 2020 Therapy Diagnosis Therapy Diagnosis: Decreased ADL status Height/Weight Height (Feet): 4 Height (Inches): 11.00 Weight (Pounds): 170 Weight (Ounces): 0 Precautions Precautions/Isolations: Fall Prevention, Standard Precautions Referral Physician: Estefania Referral Reason: Activity Tolerance, Self Care, Evaluation/Treatment, Strengthening/ROM Medical History Pertinent Medical History: DM, HTN Additional Medical History HTN, Alzheimer's, DM2, COPD, chronic UTIs Current History Pt experienced L side weakness for 3 days, admitted to hospital. R side CVA. L side weakness, ataxia, minimal sensory difficulties Reviewed History: Yes Social History Home: Single Level Current Living Status: Spouse Entry Into Home: [facility] ADL-Prior Level of Function SCALE: Activities may be completed with or without assistive devices. 0-Hpowfiodjp-kabbmbm completes the activity by him/herself with no assistance from a helper. 5-Set-up or Clean-up Assistance-helper sets up or cleans up; patient completes activity. [place] assists only prior to or following the activity. 4-Supervision or Touching Assistance-helper provides verbal cues and/or touching/steadying and/or contact guard assistance as patient completes activity. Assistance may be provided throughout the activity or intermittently. 3-Partial/Moderate Assistance-helper does LESS THAN HALF the effort. [place] lifts, holds or supports trunk or limbs, but provides less than half the effort. 2-Substantial/Maximal Assistance-helper does MORE THAN HALF the effort. [place] lifts or holds trunk or limbs and provides more than half the effort. 7-Ehaforvgi-fccqgt does ALL the effort. Patient does none of the effort to complete the activity. Or, the assistance of 2 or more helpers is required for the patient to complete the activity. If activity was not attempted, code reason: 7-Patient Refused. 9-Not Applicable-not attempted and the patient did not perform the activity before the current illness, exacerbation or injury. 10-Not Attempted due to Environmental Limitations-(lack of equipment, weather restraints, etc.). 88-Not Attempted due to Medical Conditions or Safety Concerns. ADL PLOF Comments Per notes, pt was IND with use of AD. 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 Pt alert to person only. Pt states she came from a town in [place], believes she is at [facility] to visit someone. Pt reoriented to place/ situation. Pt very expressive through treatment, unable to follow commands appropriately, does not attend to tasks. Co-treat completed with OT addressing ADLs, UE movement/ placement, balance and attention to task while PT addresses LB movement, gait/ stance/ transfers, and balance in stance. Mental Status/Objective Patient Orientation: Person, Confused Current Glasses/Contacts: No Hearing Aids: No Dentures/Partials: No Hand Dominance: Right Upper Extremity ROM R WFL L decreased shoulder/ wrist/ hand. Upper Extremity Coordination R WFL L decreased: 3rd digit trigger finger, 4th/ 5th fingers no active extension, pt able to extend/ hold index/ thumb but does not utilize during tx. Upper Extremity Sensation decreased slightly, though pt states ability to sense OT each time asked Upper Extremity Strength R WFL (slight decrease) L decreased (unable to follow MMT commands, based on clinical judgment pt's shoulder 2/5, elbow 3/5, wrist/ hand 2/5. ADL-Treatment Eating (QC): 3 (min A- pt requires assist bringing cup to mouth; cutting tasks will require assist.) Oral Hygiene (QC): 3 Shower/Bathe Self (QC): 1 (TD- pt requires constant cueing for continuation/ initiation of task. pt becomes distracted easily, unable to problem solve. Max Ax2 for bottom hygiene) Upper Body Dressing (QC): 2 (max A- unable to follow cues for doffing gown over BUE's, pt requires encouragement to follow direction and initiate movement of BUEs. ) Lower Body Dressing (QC): 1 (TD max A x2 ) On/Off Footwear (QC): 1 (TD- pt able to lift BLEs up to bring foot toward sock. Unable to follow cues for leg placement to don/ doff.) Toileting Hygiene (QC): 1 (TD with max A x2.) Other Treatments Pt in bed upon entry. Pt very pleasant, confused. Pt agrees to OT/ PT co-treat. Co-treat completed with OT addressing ADLs, UE movement/ placement, balance and attention to task while PT addresses LB movement, gait/ stance/ transfers, and balance in stance. Pt completes bed mob with max cues for moving BLEs toward EOB, unable to follow commands, requires TD (max Ax2) for positioning. EOB pt's balance fair- requires CGA-mod A throughout EOB tasks. Pt unable to follow cues for UB ROM/ MMT completion. Sit to stand transfer TD (max Ax2) and sits in w/c for bathing tasks. Requires cues for keeping head/ core in midline, leaning to L side off w/c. Does not recognize this position, requires physical assist to correct. Pt is handed wash cloths and instructed to cleanse specific body parts, pt unable to maintain attention to task, requiring an increase of cueing/ physical cues. Pt requires physical assist through LB/ bottom task/ underarms (pt refuses to complete herself, but agrees to allow staff to assist). Pt sings/ makes out of context statements, like, "You need to rephrase your self; I am going to the gym to watch the acrobats," etc. Pt requires encouragement to complete tasks, states enjoyment through activity, and then denies completing. Requires increased encouragement. Pt encouraged to complete w/c mob. Pt refuses, pt's RUE placed on wheel, pt does not initiate. Pt requires PROM of RUE for positioning through pattern, after removal of physical assist pt does not complete. At parallel bars, pt stands with max A x2, requires cues for tucking bottom, and stands with assist x1. Pt able to rotate head to R/ L side, denies dizziness. Pt begins to sit, is encouraged to continue stance, becomes slightly upset about request to continue stance and sits a few seconds later. Pt wheeled back to room, sit to stand/ SPT to recliner chair with TD. Pt is positioned with pillows with all needs met, call light in reach. Pt given new water, drinks a sip. Pt denies blanket. [id number]: Pt in recliner with head leaning to L side. Pt denies pillow, states desire for snack. Pt unable to open containers, though able to bring spoon from pudding cup to mouth with RUE with success. Pt dips grahm crackers to pudding without difficulties. Pt brings to mouth, never overshooting. pt completes oral care with cues for placement of toothpaste in L hand, able to unscrew with R hand. Pt dons toothpaste with toothbrush held in front of pt by OT. Pt able to brush thoroughly, both sides of mouth. Pt left in recliner with all needs met, call light in reach. Pt positioned with additional towel rolls between L side and chair for added support. [id number] (20): pt in recliner, agrees to tx. Pt's food in front of pt, declines eating more. Pt's L 3rd finger assisted in extension without success- appears as trigger finger adhered to underlying tissue. Pt completes reaching/ grasping tasks with max cues for attention and completion of task. Pt reaches with R, max cues for reaching L. Pt able to grasp through L elbow extension/ hold with thumb and index and place peg in board with increased time. Pt completes pinching with yellow clothes pin 10 x R side, does not complete L side. Pt left with PT end of session. Education OT Patient Education: Correct positioning, Disease process, Purpose of tx/functional activities, Rehab process, Safety issues, Transfer techniques, W/C management Teaching Recipient: Patient Teaching Methods: Demonstration, Discussion Response to Teaching: Verbalize Understanding, Unable to Return Demonstration, Return Demonstration, Unable to Comprehend, Reinforcement Needed OT Short Term Goals Short Term Goals Time Frame: Apr 05, 2020 Eatin Oral hygiene: 4 Toileting hygiene: 2 Shower/bathe self: 2 Upper body dressin Lower body dressin Putting on/taking off footwear: 2 OT [facility] Goals Search Consultant Goals Time Frame: Apr 12, 2020 Eating (QC): 6 Oral Hygiene (QC): 6 Toileting Hygiene (QC): 3 Shower/Bathe Self (QC): 3 Upper Body Dressing (QC): 5 Lower Body Dressing (QC): 3 On/Off Footwear (QC): 3 Additional Goals: 1-Demonstrate ADL Tasks, 2-Verbalize Understanding, 3- ImproveStrength/Yuriy 1=Demonstrate adherence to instructed precautions during ADL tasks. 2=Patient will verbalize/demonstrate understanding of assistive devices/modifications for ADL. 3=Patient will improve strength/tolerance for activity to enable patient to perform ADL's. OT Education/Plan Problem List/Assessment Assessment: Decreased Activ Tolerance, Decreased Safety Aware, Decreased UE Strength, Dependent Transfers, Impaired Bed Mobility, Impaired Cognition, Impaired Coordination, Impaired Funct Balance, Impaired I ADL's, Impaired Self- Care Skills, Restricted Funct UE ROM Discharge Recommendations Plan/Recommendations: Continue POC Therapy Discharge Recommendati: 24 Hour Supervision, Post Acute OT Treatment Plan/Plan of Care Treatment,Training & Education: Yes Patient would benefit from OT for education, treatment and training to promote independence in ADL's, mobility, safety and/or upper extremity function for ADL's. Plan of Care: ADL Retraining, Caregiver Training, Cognitive Retraining, Concurr ent Therapy, Functional Mobility, Group Exercise/Act as Ind, Orthotic Fitting/Training, UE Funct Exercise/Act, UE Neuromus Re-Ed/Coord, W/C Management Training Treatment Duration: Apr 12, 2020 Frequency: At least 5 of 7 days/Wk (IRF) Estimated Hrs Per Day: 1.5 hours per day Agreement: Yes Rehab Potential: Guarded Time/GCodes Start Time: 09:10 (1045; 1305) Stop Time: 10:00 (1100; 1325) Total Time Billed (hr/min): 85 (50+15+20= 85) Billed Treatment Time Co-treat completed with OT addressing ADLs, UE movement/ placement, balance and attention to task while PT addresses LB movement, gait/ stance/ transfers, and balance in stance. OT individual evaluation: ([id number]) Co-treat: ([id number]): 1, EVM (10), ADL 2 (30), FA(10)= [phone]: 1, ADL [phone]: 1, FA (20) Total: 85 SILVANA ESTRELLA OTR Mar 29, 2020 10:08
--- NOTE | 2020-03-29 10:24 | Physical Therapy Evaluation ---
PT Evaluation-General Medical Diagnosis Admission Date Mar 28, 2020 at 18:05 Medical Diagnosis: CVA Onset Date: Feb 21, 2020 Therapy Diagnosis Therapy Diagnosis: Impaired mobility, and strength Height/Weight Height (Feet): 4 Height (Inches): 11.00 Weight (Pounds): 170 Weight (Ounces): 0 Precautions Precautions/Isolations: Fall Prevention, Standard Precautions Referral Physician: Estefania Reason for Referral: Evaluation/Treatment Medical History Additional Medical History Past Medical History Surgeries: Gallbladder, Hysterectomy, Orthopedic Cardiac: Atrial Fibrillation Neurological: Dementia, Stroke (03/22/20) Genitourinary: Bladder Infection, UTI-Chronic Musculoskeletal: Arthritis Endocrine: Diabetes, Non-Insulin dep Psychosocial: Anxiety, PTSD, Depression Reviewed History: Yes Social History Home: [facility] Current Living Status: Spouse Pt unable to answer questions on layout of her home. Prior Prior Level of Function SCALE: Activities may be completed with or without assistive devices. 6-Cvaqdxdxng-tfwjwdz completes the activity by him/herself with no assistance from a helper. 5-Set-up or Clean-up Assistance-helper sets up or cleans up; patient completes activity. [place] assists only prior to or following the activity. 4-Supervision or Touching Assistance-helper provides verbal cues and/or touching/steadying and/or contact guard assistance as patient completes activity. Assistance may be provided throughout the activity or intermittently. 3-Partial/Moderate Assistance-helper does LESS THAN HALF the effort. [place] l ifts, holds or supports trunk or limbs, but provides less than half the effort. 2-Substantial/Maximal Assistance-helper does MORE THAN HALF the effort. [place] lifts or holds trunk or limbs and provides more than half the effort. 1-Nckbadyxn-utpzlr does ALL the effort. Patient does none of the effort to complete the activity. Or, the assistance of 2 or more helpers is required for t he patient to complete the activity. If activity was not attempted, code reason: 7-Patient Refused. 9-Not Applicable-not attempted and the patient did not perform the activity before the current illness, exacerbation or injury. 10-Not Attempted due to Environmental Limitations-(lack of equipment, weather restraints, etc.). 88-Not Attempted due to Medical Conditions or Safety Concerns. unable to assess PT Evaluation-Current Subjective Pt presents supine in bed under the care of OT. Pt agrees to PT. Pt reports no pain. Will be co-treating with OT after evaluation due to poor patient mobility, strength, endurance, sitting and standing balance, left hemiparesis, poor safety awareness, the need to coordinate UE and LE during activity. Pt/Family Goals Return Home Objective Patient Orientation: Person, Confused, Eyes Open ROM/Strength ROM Lower Extremities WFL Strength Lower Extremities Gross BLE >3/5 Unable to assess strength as pt does not follow instructions. Sensory Vision: Wears Glasses Hearing: Functional Transfers Roll Left & Right (QC): 2 Sit to Lying (QC): 2 Lying to Sitting/Side of Bed(Q: 2 Sit to Stand (QC): 2 Chair/Wuk-le-Uukrc Xfer(QC): 2 Toilet Transfer (QC): 2 Car Transfer (QC): 88 Patient requires max assist with BLE and trunk to get to EOB from lying. Pt also requires max assist with standing and chair to chair transfers; pt does not follow cues to lean forward or move to edge of seat so that her feet can touch the ground. Gait Does the Patient Walk?: No and Walking Goal IS indicated Mode of Locomotion: Both Anticipated Mode of Locomotion: Both Walk 10 feet (QC): 88 Walk 50 ft with 2 Turns(QC): 88 Walk 150 ft (QC): 88 Walking 10ft/uneven surface-QC: 88 Wheelchair Training Does the Pt Use a Wheelchair?: Yes Distance: 150'x2 Wheel 50 ft with 2 turns (QC): 1 Wheel 150 ft (QC): 1 Type of Wheelchair: Manual Pt able to propel self 10' with max assist position hand on wheel and cue to push forward. Pt was dependent in longer distances using wheelchair. Stairs 1 Step (curb) (QC): 88 4 Steps (QC): 88 12 Steps (QC): 88 Balance Sitting Static: Poor Sitting Dynamic: Poor Standing Static: Poor Standing Dynamic: Poor Picking up an Object (QC): 88 Treatment Standing balance in parallel bars. PT performed evaluation, bed mobility and transfers, WC mobility, assist with sitting and standing balance during bathing and dressing, OT performed bathing and dressing and assisted with transfers and UE positioning and safety during activity. Assessment/Needs Pt is vocal and agrees to instructions but then loses focus to complete task. Pt has tendency to lean towards left (weak) side; pt tends to look towards right but is able to look left and acknowledge the left side of her body. Patient in recliner post tx with pillow support, legs elevated and tray in front of her, has nurse call and phone, nurse notified patient is in recliner. Rehab Potential: Poor PT Short Term Goals Short Term Goals Time Frame: Apr 05, 2020 Roll Left & Right: 3 Sit to lyin Lying to sitting on side of be: 3 Sit to stand: 3 Chair/lho-sr-ptneh transfer: 3 Walk 10 feet: 3 PT Longterm Goals Program Aide Group Work Goals PT Program Aide Group Work Goals Time Frame: Apr 19, 2020 Roll Left & Right (QC): 3 (Emily) Sit to Lying (QC): 3 (Emily) Lying-Sitting on Side/Bed(QC): 3 Sit to Stand (QC): 3 (Emily) Chair/Ick-yu-Txdbq Xfer(QC): 3 (Emily) Toilet Transfer (QC): 3 (Emily) Car Transfer (QC): 3 (Emily) Does the Patient Walk: Yes Walk 10 feet (QC): 3 (Emily) Walk 50ft with 2 Turns (QC): 88 Walk 150 ft (QC): 88 Walking 10ft on Uneven Surface: 88 1 Step (curb) (QC): 88 4 Steps (QC): 88 12 Steps (QC): 88 Picking up an Object (QC): 88 Wheel 50 feet with 2 turns (QC: 3 Wheel 150 feet: 3 PT Plan Problem List Problem List: Activity Tolerance, Functional Strength, Safety, Balance, Gait, Transfer, Bed Mobility, ROM Treatment/Plan Treatment Plan: Continue Plan of Care Treatment Plan: Bed Mobility, Education, Functional Activity Yuriy, Functional Strength, Group Therapy, Gait, Safety, Therapeutic Exercise, Transfers Treatment Duration: Apr 19, 2020 Frequency: At least 5 of 7 days/Wk (IRF) Estimated Hrs Per Day: 1.5 hours per day Patient and/or Family Agrees t: Yes Safety Risks/Education Patient Education: Transfer Techniques, Correct Positioning, W/C Management, Safety Issues Teaching Recipient: Patient Teaching Methods: Demonstration, Discussion Response to Teaching: Reinforcement Needed Discharge Recommendations Plan Patient will perform bed mobility and transfer training, balance and endurance training, functional strengthening, gait training, and education, to improve functional mobility and independence at home. Therapy Discharge Recommendati: Other, See Comments (NH) Time/GCodes Time In: 0900 Time Out: 1000 Total Billed Treatment Time: 60 Total Billed Treatment 1 visit EVM 10' FA 40' (only charge 2 units) PT eval from [id number], OT eval from [id number], co-treat from [id number]. CONCEPCIÓN CARLOS PT Mar 29, 2020 10:24
--- NOTE | 2020-03-29 10:50 | PM&R Progress Note ---
Subjective HPI/CC On Admission Date Seen by Provider: Mar 29, 2020 Time Seen by Provider: 10:45 Subjective/Events-last exam Patient settled in to IRF Baseline dementia and labile changes to behaviors is at baseline No pain reported SLUMS cannot be performed due to severity of dementia Left sided weakness is profound No falls Checked meds and labs Conferred with RN Reviewed therapy notes Review of Systems Neurological: Weakness, Incoordination, Confusion Objective Exam Vital Signs Vital Signs Date Time Temp Pulse Resp B/P (MAP) Pulse Ox O2 Delivery O2 Flow Rate FiO2 03/30/20 05:12 36.4 78 18 136/64 (88) 96 Room Air Capillary Refill : General Appearance: No Apparent Distress, WD/WN, Chronically ill HEENT: PERRL/EOMI, Normal ENT Inspection, Pharynx Normal Neck: Full Range of Motion, Normal Inspection, Non Tender, Supple, Carotid Bruit Respiratory: Chest Non Tender, Lungs Clear, Normal Breath Sounds, No Accessory Muscle Use, No Respiratory Distress Cardiovascular: No Edema, No Gallop, No JVD, No Murmur, Normal Peripheral Pulses, Irregularly Irregular Gastrointestinal: Normal Bowel Sounds, No Organomegaly, No Pulsatile Mass, Non Tender, Soft Back: Normal Inspection, No CVA Tenderness, No Vertebral Tenderness Extremity: Normal Capillary Refill, Normal Inspection, Normal Range of Motion, Non Tender, No Calf Tenderness, No Pedal Edema Neurologic/Psychiatric: Alert, No Motor/Sensory Deficits, Normal Mood/Affect, 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 FIM Transfers Therapy Code Descriptions/Definitions Functional [place] Measure: 0=Not Assessed/NA 4=Minimal Assistance 1=Total Assistance 5=Supervision or Setup 2=Maximal Assistance 6=Modified Wise 3=Moderate Assistance 7=Complete IndependenceSCALE: Activities may be completed with or without assistive devices. 0-Ojidjcycin-mzqvxub completes the activity by him/herself with no assistance from a helper. 5-Set-up or Clean-up Assistance-helper sets up or cleans up; patient completes activity. [place] assists only prior to or following the activity. 4-Supervision or Touching Assistance-helper provides verbal cues and/or touching/steadying and/or contact guard assistance as patient completes activity. Assistance may be provided throughout the activity or intermittently. 3-Partial/Moderate Assistance-helper does LESS THAN HALF the effort. [place] lifts, holds or supports trunk or limbs, but provides less than half the effort. 2-Substantial/Maximal Assistance-helper does MORE THAN HALF the effort. [place] lifts or holds trunk or limbs and provides more than half the effort. 4-Btfruyahi-cgdefu does ALL the effort. Patient does none of the effort to complete the activity. Or, the assistance of 2 or more helpers is required for the patient to complete the activity. If activity was not attempted, code reason: 7-Patient Refused. 9-Not Applicable-not attempted and the patient did not perform the activity before the current illness, exacerbation or injury. 10-Not Attempted due to Environmental Limitations-(lack of equipment, weather restraints, etc.). 88-Not Attempted due to Medical Conditions or Safety Concerns. Roll Left to Right (QC): 2 Sit to Lying (QC): 2 Sit to Stand (QC): 2 Chair/Viz-um-Cxwwm Xfer(QC): 2 Car Transfer (QC): 88 Gait Training Does the Patient Walk?: No and Walking Goal IS indicated Walk 10 feet (QC): 88 Walk 50 ft with 2 Turns(QC): 88 Walk 150 ft (QC): 88 Walking 10ft/uneven surface-QC: 88 Wheelchair Training Does the Pt Use a Wheelchair?: Yes Distance: 150'x2 Wheel 50 ft with 2 turns (QC): 1 Wheel 150 ft (QC): 1 Type of Wheelchair: Manual Stair Training 1 Step (curb) (QC): 88 4 Steps (QC): 88 12 Steps (QC): 88 Balance Picking up an Object (QC): 88 ADL-Treatment Eating (QC): 3 (min A- pt requires assist bringing cup to mouth; cutting tasks will require assist.) Shower/Bathe Self (QC): 1 (TD- pt requires constant cueing for continuation/ initiation of task. pt becomes distracted easily, unable to problem solve. Max Ax2 for bottom hygiene) Upper Body Dressing (QC): 2 (max A- unable to follow cues for doffing gown over BUE's, pt requires encouragement to follow direction and initiate movement of BUEs. ) Lower Body Dressing (QC): 1 (TD max A x2 ) On/Off Footwear (QC): 1 (TD- pt able to lift BLEs up to bring foot toward sock. Unable to follow cues for leg placement to don/ doff.) Toileting Hygiene (QC): 1 (TD with max A x2.) Assessment/Plan Assessment and Plan Assess & Plan/Chief Complaint Assessment: 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 02/21/20 transferred to New onset AF OAC DM HTN COPD Dementia Confusion at baseline Vit B12 deficiency Left sided weakness h/o UTI Plan: IRF protocol OAC Cardiology consultation Monitor closely 03/29/20: OAC Monitor AF Dementia at baseline (1) Acute ischemic right MCA stroke Status: Acute (2) Atrial fibrillation (3) History of UTI (4) Dementia (5) Left-sided weakness (6) COPD (chronic obstructive pulmonary disease) (7) B12 deficiency (8) Altered mental status Status: Acute (9) Diabetes mellitus (10) Hypertension KULDEEP PAYNE DO Mar 29, 2020 10:50
--- NOTE | 2020-03-29 11:08 | NUR ---
"RD ASSESSMENT PMHx: DM; COPD; Alzheimer's disease; HTN; chronic UTI; afib; stroke PT INTERACTION: Pt was awake and pleasant during nutrition assessment. Note pt has dementia, per chart review. Pt states current appetite is good. Note avg PO intake 50% x2meal, per chart review. Pt states following a low-CHO diet at home, and has no issues with chewing/swallowing food. Pt states recent issues with nausea, vomiting, constipation, and diarrhea, and that his last BM was 03/29. Note pt currently on bowel regimen of senna BID; and miralax BID, per chart review. Pt states no recent wt changes. Note recent 12# wt loss x8mon, per chart review. Pt states current DM management is good. Note unable to determine recent HbA1c, per chart review. ABNORMAL NUTRITION-RELATED LAB VALUES LOW: HIGH: glu 129; AST 48 Est. kcal needs: 1450 kcal | 20 kcal/kg Est. Pro needs: 57 g Pro | 0.8 g Pro/kg PES STATEMENT: Inadequate oral intake (NI-2.1) related to loss of appetite | nausea | vomiting | constipation | diarrhea as evidenced by pt interview | chart review | avg PO intake 50% x2meal INTERVENTION: Continue with current diet order of CHO 60g/m 3snack diet. Pt may benefit from nutrition supplementation if PO intake declines. Did not offer diet education on DM management d/t pt's dementia. Will attempt to offer when family present at bedside. Will continue to follow and reassess as pt needs, intake, and status change. José Antonio Baron, MS RD LD"
--- NOTE | 2020-03-29 11:44 | ST Cognitive Linguistic Eval ---
Speech Evaluation-General Medical Diagnosis CVA- L side weakness Onset Date: Feb 21, 2020 Therapy Diagnosis Therapy Diagnosis: Cognitive-communication, Aphasia Referral Referring Physician: Dr. Mac Medical History Pertinent Medical History: DM, HTN Reviewed History: Yes Social History Current Living Status: Spouse Speech PLF-Current Status Prior Level of Function Patient lived at home with her . The patient has Alzheimer's and is reported to have been more independent some days more that others. Subjective Patient was pleasant and cooperative with the cognitive assessment. Patient is very confused. Language Eval: Auditory Comprehends Simple Yes/No Ques: Functional Indent/Objects Multiple Hart: Mild Ident/Pics in Multiple Hart: Mild Follows 1-Step Commands: Moderate Follows Complex Directions: Severe Follows General Conversations: Moderate Language Eval: Verbal Language Completes Spontaneous Greeting: Functional Produces Auto, Serial Info: Mild Imitates Simple Words/Phrases: Mild Word Finding: Moderate Requests Basic Needs: Mild States Basic Personal Info: Mild Expresses Complex Ideas: Moderate Objective Cognitive Domain Attention: Mild Memory: Moderate Problem Solving: Moderate Executive Functions: Severe Visuospatial Skills: Mild Composite Severity Rating: Moderate Clock Drawing Severity Rating: Moderate Objective Formal/Standardized Tests [facility] Mental Status ([facility]) Results 0/30, Patient was unable to follow directions to complete the [facility] tasks. Oral Motor/Speech Production Within Normal Limits Impression Patient is a pleasantly confused 70 y/o female who was admitted to the ARU s/p CVA. Patient's medical history is significant for Alzheimer's. Patient was given the SLUMS at bedside.She was unable to follow the simple directions for any of the tasks and was unable to score any points. The patient was given simple informal tasks with ability to answer y/n at 70%. Patient was noted to be confused and had difficulty staying on task. Patient will receive skilled ST with focus on safety awareness and memory. Speech Patient Assess Expression of Ideas/Wants: Rarely/Never (1) Understanding Verbal Content: Rarely/Never Understand (1) Brief Interview-Mental Status: Yes Repetition of Three Words: One (1) Temporal Orientation: Year: No answer (0) Temporal Orientation: Month: No answer (0) Temporal Orientation: Day: Incorrect or No Answer(0) Recall : Wear to say "Sock": No, could not recall (0) Recall : Color: No, could not recall (0) Recall : Bed: No, could not recall (0) Memory/Recall Ability: None of the above were recalled Speech Short Term Goals Short Term Goals Short Term Goals 1) Patient will complete memory tasks at 75% or greater. 2) Patient will complete safety awareness tasks at 75% or greater. 3) Patient will complete problem solving tasks at 75% or greater. Speech Correction Goals Correction Goals Patient will improve cognitive-communication necessary for safety and daily living tasks with minimal assist. Speech-Plan Patient/Family Goals Patient/Family Goals: Patient plans on returning to her home where she lives with her . Treatment Plan Speech Therapy Treatment Plan: Continue Plan of Care Treatment Duration: Apr 10, 2020 Frequency: 4 times per week (Patient will receive skilled ST 4-5x per week) Estimated Hrs Per Day: .5 hour per day Rehab Potential: Guarded Barriers to Learning: Patient's level of cognitive deficits, Alzheimer's Pt/Family Agrees to Plan: Yes Safety Risks/Education Teaching Recipient: Patient Teaching Methods: Discussion Response to Teaching: Verbalize Understanding, Reinforcement Needed Education Topics Provided: Safety within her room, utilization of her call light Time Speech Therapy Time In: 08:30 Speech Therapy Time Out: 09:00 Total Billed Time: 30 Billed Treatment Time 1, ABHIJEET GALVEZ [address] ST Mar 29, 2020 11:44
--- NOTE | 2020-03-29 14:02 | Physical Therapy Daily Note ---
PT Daily Note-Current Subjective Pt presents sitting in recliner. Pt reports no pain. Pt agrees to PT. Appearance At conclusion of PT treatment patient is in bed with call button, tray, and all needs have been met, bed alarm on. Mental Status Patient Orientation: Confused, Eyes Open Transfers SCALE: Activities may be completed with or without assistive devices. 3-Ufgfwiifxj-esmbioh completes the activity by him/herself with no assistance from a helper. 5-Set-up or Clean-up Assistance-helper sets up or cleans up; patient completes activity. [place] assists only prior to or following the activity. 4-Supervision or Touching Assistance-helper provides verbal cues and/or touching/steadying and/or contact guard assistance as patient completes activity. Assistance may be provided throughout the activity or intermittently. 3-Partial/Moderate Assistance-helper does LESS THAN HALF the effort. [place] lifts, holds or supports trunk or limbs, but provides less than half the effort. 2-Substantial/Maximal Assistance-helper does MORE THAN HALF the effort. [place] lifts or holds trunk or limbs and provides more than half the effort. 2-Piqqqxbkm-xcwyox does ALL the effort. Patient does none of the effort to complete the activity. Or, the assistance of 2 or more helpers is required for the patient to complete the activity. If activity was not attempted, code reason: 7-Patient Refused. 9-Not Applicable-not attempted and the patient did not perform the activity before the current illness, exacerbation or injury. 10-Not Attempted due to Environmental Limitations-(lack of equipment, weather restraints, etc.). 88-Not Attempted due to Medical Conditions or Safety Concerns. Sit to Stand (QC): 1 Chair/Nig-xx-Jqrio Xfer(QC): 1 Pt reports that she can stand, but refuses to assist when cued to do so. Exercises Supine Ex: Ankle pumps, Heel Slides (PROM) Supine Reps: 20 Seated Therapy Exercises: Ankle pumps, Long arc quads Seated Reps: 20 Treatments LE strengthening Assessment Current Status: Poor Progress Pt unable to complete full sets of exercises as instructed; therapy settles for any form of movement as productive. Pt is transferred from chair to bed, pt is informed of the steps to this process and how she can help but is dependent on the therapists. Pt reports needing to urinate but refuses a bed su or assisting with transfers. Training with nursing on transfers with patient, it is decided that they should probably use a lucille lift when therapy is not present to assist. PT Short Term Goals Short Term Goals Time Frame: Apr 05, 2020 Roll Left & Right: 3 Sit to lyin Lying to sitting on side of be: 3 Sit to stand: 3 Chair/noo-zg-evnof transfer: 3 Walk 10 feet: 3 PT Code Enforcement Supervisor Goals Code Enforcement Supervisor Goals PT Code Enforcement Supervisor Goals Time Frame: Apr 19, 2020 Roll Left & Right (QC): 3 (Emily) Sit to Lying (QC): 3 (Emily) Lying-Sitting on Side/Bed(QC): 3 Sit to Stand (QC): 3 (Emily) Chair/Vtd-dz-Lceiv Xfer(QC): 3 (Emily) Toilet Transfer (QC): 3 (Emily) Car Transfer (QC): 3 (Emily) Does the Patient Walk: Yes Walk 10 feet (QC): 3 (Emily) Walk 50ft with 2 Turns (QC): 88 Walk 150 ft (QC): 88 Walking 10ft on Uneven Surface: 88 1 Step (curb) (QC): 88 4 Steps (QC): 88 12 Steps (QC): 88 Picking up an Object (QC): 88 Wheel 50 feet with 2 turns (QC: 3 Wheel 150 feet: 3 PT Plan Problem List Problem List: Activity Tolerance, Functional Strength, Safety, Balance, Gait, Transfer, Bed Mobility, ROM Treatment/Plan Treatment Plan: Continue Plan of Care Treatment Plan: Bed Mobility, Education, Functional Activity Yuriy, Functional Strength, Group Therapy, Gait, Safety, Therapeutic Exercise, Transfers Treatment Duration: Apr 19, 2020 Frequency: At least 5 of 7 days/Wk (IRF) Estimated Hrs Per Day: 1.5 hours per day Patient and/or Family Agrees t: Yes Safety Risks/Education Patient Education: Transfer Techniques, Correct Positioning, Safety Issues Teaching Recipient: Patient Teaching Methods: Demonstration, Discussion Response to Teaching: Reinforcement Needed Time/GCodes Time In: 1330 Time Out: 1400 Total Billed Treatment Time: 30 Total Billed Treatment 1 visit EX 20' FA 10' CONCEPCIÓN CARLOS PT Mar 29, 2020 14:02
--- NOTE | 2020-03-29 15:06 | NUR ---
CM/SS ADMISSION Patient was admitted to ARU 03/28/20 from [facility] Neuro for CVA. Patient presented to AV ED 02/21/20 with acute ischemic R MCA stroke and reportedly has left sided weakness. Significant history of dementia with labile moods. Other comorbidities are, in part, new onset afib, COPD, B12 deficiency, DM, HTN. Patient scored 0/30 on today's SLUMS assessment by Speech Therapist. Reviewed EMR, attempted to speak with spouse Art Hunter by phone. Patient reported resided at home with Art and the goal is for her to return there if able. PCP: LARISA MCCOY, Dr. Bhupendra Wilder MD PHARMACY: [facility] INSURANCE: T Medicare DME: To be clarified when able to speak to spouse and/or family. BARRIERS TO DISCHARGE PLANNING: Patient's baseline vs current level of functioning. Medicare without supplement showing at this time, will confirm that status and whether patient has [place] Medicaid benefits for in-home assistance. CONTACTS: Art Hunter, Spouse [address] [place] [address] Patient's first patient care conference review will be Wednesday, April 03, 2020.
--- NOTE | 2020-03-29 15:09 | Consultation-Cardiology ---
HPI-Cardiology Cardiology Consultation: Date of Consultation 03/29/20 Time Seen by a Provider: 14:10 Date of Admission 03-28-2020 Attending Physician Cheryl Mac DO Admitting Physician Bhupendra Wilder MD Consulting Physician INDER MORILLO HPI: Chief Complaint: Post CVA Cardiac management Ms. Hunter is a 70 year old female admitted to IRF 233 from [facility] post MCA CVA d/t R ICA thrombus. She is a poor historian. She currently denies any c/o CP, palpitations, dyspnea. She states she feels good. Review of records from [facility] has been done. She has left sided upper and lower extremity weakness. Review of Systems-Cardiology Review of Systems Constitutional: No chills, No fever Ears/Nose/Throat: no symptoms reported Respiratory: As described under HPI Cardiovascular: As described under HPI Gastrointestinal: No diarrhea, No nausea, No vomiting Genitourinary: No dysuria Musculoskeletal: no symptoms reported Skin: No rash on exposed areas, No ulcerations on exposed areas Psychiatric/Neurological: As described under HPI; No syncope Hematologic: No bleeding abnormalities NAQ-Nlieoj-Ujqapz Hx Patient Social History Marrital Status: single Employed/Student: retired Alcohol Use: Denies Use Recreational Drug Use: No Smoking Status: Unknown if Ever Smoked 2nd Hand Smoke Exposure: No Recent Foreign Travel: No Recent Infectious Disease Expo: No Physical Abuse Screen: No Sexual Abuse: No Immunizations Up To Date Tetanus Booster (TDap): Less than 5yrs Date of Pneumonia Vaccine: Mar 17, 2010 Past Medical History PMH As described under Assessment. Family Medical History Family Medical History: Documented family h/o father having HTN and DM. Allergies and Home Medications Allergies Coded Allergies: aspirin (Unverified Allergy, Mild, 04/01/09) Uncoded Allergies: [id number] (SULFA (SULFONAMIDE ANTIBIOTICS)) (Allergy, Mild, 04/01/09) Home Medications Apixaban 5 Mg Tablet, 5 MG PO BID, (Reported) Atorvastatin Calcium 40 Mg Tablet, 40 MG PO DAILY, (Reported) Cyanocobalamin 1,000 Mcg/Ml Inj, 1 ML IM DAILY, (Reported) INJECT 1 ML IM DAILY X 6 DAYS Losartan Potassium 25 Mg Tablet, 12.5 MG PO DAILY, (Reported) TAKES OF A 25MG TAB Vitamin B Complex 1 Each Tablet, 1 EACH PO DAILY, (Reported) Patient Home Medication List Home Medication List Reviewed: Yes Physical Exam-Cardiology Physical Exam Vital Signs/I&O 04/01/20 04/01/20 04/01/20 05:23 09:00 16:10 Temp 36.6 36.6 Pulse 63 65 Resp 20 14 B/P (MAP) 118/78 (91) 91/53 (66) Pulse Ox 94 96 O2 Delivery Room Air Room Air Room Air 04/01/20 00:00 Intake Total 900 ml Balance 900 ml Capillary Refill : Constitutional: well-developed, other (Oriented to self) HEENT: hearing is well preserved, oral hygience is good Neck: No carotid bruit; carotid pulses are 2 + bilaterally Respiratory: No accessory muscle use, No respiratory distress; chest expansion is symmetric, chest is bilaterally symmetric, lungs clear to auscultation Cardiovascular: regular rate-rhythm; No JVD; S1 and S2 Gastrointestinal: No tender; soft, round, audible bowel sounds Extremities: no lower extremity edema bilateral Neurologic/Psychiatric: other (left upper and lower extremity weakness, LUE 3/5, LLE 4/5) Skin: No rash on exposed areas, No ulcerations on exposed areas Data Review Labs Laboratory Tests 03/31/20 20:57: Glucometer 148H 04/01/20 06:10: White Blood Count 8.4, Red Blood Count 3.10L, Hemoglobin 11.8, Hematocrit 34L, Mean Corpuscular Volume 109H, Mean Corpuscular Hemoglobin 38H, Mean Corpuscular Hemoglobin Concent 35, Red Cell Distribution Width 13.2, Platelet Count 287, Mean Platelet Volume 11.4, Immature Granulocyte % (Auto) 0, Neutrophils (%) (Auto) 42, Lymphocytes (%) (Auto) 38, Monocytes (%) (Auto) 12, Eosinophils (%) (Auto) 6, Basophils (%) (Auto) 1, Neutrophils # (Auto) 3.5, Lymphocytes # (Auto) 3.2, Monocytes # (Auto) 1.0, Eosinophils # (Auto) 0.5H, Basophils # (Auto) 0.1, Immature Granulocyte # (Auto) 0.0, Sodium Level 137, Potassium Level 3.9, Chloride Level 104, Carbon Dioxide Level 22, Anion Gap 11, Blood Urea Nitrogen 14, Creatinine 0.80, Estimat Glomerular Filtration Rate > 60, BUN/Creatinine Ratio 18, Glucose Level 138H, Calcium Level 9.0, Corrected Calcium 9.3, Total Bilirubin 0.8, Aspartate Amino Transf (AST/SGOT) 49H, Alanine Aminotransferase (ALT/SGPT) 34, Alkaline Phosphatase 69, Total Protein 7.0, Albumin 3.6 04/01/20 06:19: Glucometer 125H 04/01/20 10:52: Glucometer 197H 04/01/20 15:33: Glucometer 137H A/P-Cardiology Assessment/Admission Diagnosis S/P right MCA CVA with left sided weakness d/t R ICA thrombus per [facility] records Reported h/o PAF OAC with Eliquis (started following CVA) MPI of November 2016 showed LVEF 63% no signif ischemia or infarction Echo of November 2016 showed LVEF 60-65% COPD DM 2 HLD CKD 2 Alzheimers PTSD Anxiety/depression Discussion and Recomendations Management of CVA is with rehab services - Dr. Mac Continue OAC with Eliquis eye surgeon lab and replace electrolytes as indicated Further recs will be based on her hospital course We would like to thank Dr. Mac for this consult Clinical Quality Measures DVT/VTE Risk/Contraindication: Risk Factor Score Per Nursin RFS Level Per Nursing on Admit: 4+=Very High INDER CISNEROS Mar 29, 2020 15:09
[2020-03-29 16:19] VITALS: BP 122/58
--- NOTE | 2020-03-29 16:21 | Consultation-Cardiology ---
HPI-Cardiology Cardiology Consultation: Date of Consultation 03/29/20 Time Seen by a Provider: 15:40 Date of Admission Attending Physician Cheryl Mac DO Admitting Physician Bhupendra Wilder MD Consulting Physician RUDOLPH MELO MD, MA, FACP, FAC, [facility], [facility] Physician requesting consult: Dr Mac HPI: Chief Complaint: Reason for cardiac consultation: Post CVA, cardiac management Ms. Hunter is a 70 year old female admitted to IRF 233 from [facility] post MCA CVA d/t R ICA thrombus. She is a poor historian. She currently denies any c/o CP, palpitations, dyspnea. She states she feels good. Review of records from [facility] has been done. She has left sided upper and lower extremity weakness. Review of Systems-Cardiology Review of Systems Constitutional: No chills, No fever Ears/Nose/Throat: no symptoms reported Respiratory: As described under HPI Cardiovascular: As described under HPI Gastrointestinal: No diarrhea, No nausea, No vomiting Genitourinary: No dysuria Musculoskeletal: no symptoms reported Skin: No rash on exposed areas, No ulcerations on exposed areas Psychiatric/Neurological: As described under HPI; No syncope Hematologic: No bleeding abnormalities HGE-Vswpvk-Hwymxd Hx Patient Social History Marrital Status: single Employed/Student: retired Alcohol Use: Denies Use Recreational Drug Use: No Smoking Status: Unknown if Ever Smoked 2nd Hand Smoke Exposure: No Recent Foreign Travel: No Recent Infectious Disease Expo: No Physical Abuse Screen: No Sexual Abuse: No Immunizations Up To Date Tetanus Booster (TDap): Less than 5yrs Date of Pneumonia Vaccine: Mar 17, 2010 Past Medical History PMH As described under Assessment. Family Medical History Family Medical History: Documented family h/o father having HTN and DM. Allergies and Home Medications Allergies Coded Allergies: aspirin (Unverified Allergy, Mild, 04/01/09) Uncoded Allergies: [id number] (SULFA (SULFONAMIDE ANTIBIOTICS)) (Allergy, Mild, 04/01/09) Home Medications Apixaban 5 Mg Tablet, 5 MG PO BID, (Reported) Atorvastatin Calcium 40 Mg Tablet, 40 MG PO DAILY, (Reported) Cyanocobalamin 1,000 Mcg/Ml Inj, 1 ML IM DAILY, (Reported) INJECT 1 ML IM DAILY X 6 DAYS Losartan Potassium 25 Mg Tablet, 12.5 MG PO DAILY, (Reported) TAKES OF A 25MG TAB Vitamin B Complex 1 Each Tablet, 1 EACH PO DAILY, (Reported) Patient Home Medication List Home Medication List Reviewed: Yes Physical Exam-Cardiology Physical Exam Vital Signs/I&O 03/29/20 03/29/20 03/29/20 05:48 08:13 09:00 Temp 36.2 Pulse 71 70 Resp 18 B/P (MAP) 125/62 (83) 132/66 (88) Pulse Ox 96 O2 Delivery Room Air Room Air Capillary Refill : Constitutional: well-developed, other (Oriented to self) HEENT: hearing is well preserved, oral hygience is good Neck: No carotid bruit; carotid pulses are 2 + bilaterally Respiratory: No accessory muscle use, No respiratory distress; chest expansion is symmetric, chest is bilaterally symmetric, lungs clear to auscultation Cardiovascular: regular rate-rhythm; No JVD; S1 and S2 Gastrointestinal: No tender; soft, round, audible bowel sounds Extremities: no lower extremity edema bilateral Neurologic/Psychiatric: other (left upper and lower extremity weakness, LUE 3/5, LLE 4/5) Skin: No rash on exposed areas, No ulcerations on exposed areas Data Review Labs Laboratory Tests 03/28/20 21:39: Glucometer 174H 03/29/20 04:25: White Blood Count 9.7, Red Blood Count 3.27L, Hemoglobin 12.3, Hematocrit 36, Mean Corpuscular Volume 110H, Mean Corpuscular Hemoglobin 38H, Mean Corpuscular Hemoglobin Concent 34, Red Cell Distribution Width 13.3, Platelet Count 271, Mean Platelet Volume 11.1, Immature Granulocyte % (Auto) 0, Neutrophils (%) (Auto) 48, Lymphocytes (%) (Auto) 39, Monocytes (%) (Auto) 9, Eosinophils (%) (Auto) 3, Basophils (%) (Auto) 0, Neutrophils # (Auto) 4.6, Lymphocytes # (Auto) 3.8, Monocytes # (Auto) 0.8, Eosinophils # (Auto) 0.3, Basophils # (Auto) 0.0, Immature Granulocyte # (Auto) 0.0, Sodium Level 137, Potassium Level 3.8, Chloride Level 102, Carbon Dioxide Level 22, Anion Gap 13, Blood Urea Nitrogen 16, Creatinine 0.78, Estimat Glomerular Filtration Rate > 60, BUN/Creatinine Ratio 21, Glucose Level 129H, Calcium Level 8.9, Corrected Calcium 9.1, Total Bilirubin 0.7, Aspartate Amino Transf (AST/SGOT) 48H, Alanine Aminotransferase (ALT/SGPT) 29, Alkaline Phosphatase 79, Total Protein 7.2, Albumin 3.7 03/29/20 10:50: Glucometer 137H 03/29/20 15:37: Glucometer 118H A/P-Cardiology Assessment/Admission Diagnosis S/P right MCA CVA with left-sided weakness d/t R ICA thrombus per [facility] records Reported h/o PAF OAC with Eliquis (started following CVA) MPI of November 2016 showed LVEF 63% no signif ischemia or infarction Echo of November 2016 showed LVEF 60-65% COPD DM 2 HLD CKD 2 Alzheimers PTSD Anxiety/depression Discussion and Recomendations Management of CVA is with rehab services - Dr. Mac Continue OAC with Eliquis family services worker lab and replace electrolytes as indicated Further recs will be based on her hospital course We would like to thank Dr. Mac for this consult Clinical Quality Measures DVT/VTE Risk/Contraindication: Risk Factor Score Per Nursin RFS Level Per Nursing on Admit: 4+=Very High RUDOLPH MELO MD FACP [facility] Mar 29, 2020 16:21
[2020-03-30 05:12] VITALS: BP 136/64
[2020-03-30] MEDS: MULTIVIT W/MINERALS TAB (THERAGRAN M) PO SCH (05:46)
[2020-03-30] MEDS: inSUlin ASPART (NovoLOG) 1 UNIT/0.01 ML (CHARGE PER UNIT) SC SCH ×4 (05:46→20:05)
--- NOTE | 2020-03-30 07:07 | PM&R Progress Note ---
Subjective HPI/CC On Admission Date Seen by Provider: Mar 30, 2020 Time Seen by Provider: 12:00 Subjective/Events-last exam 03/30/20: Doing well Leans to the left Suppository will be required since no BM for several days No changes otherwise Patient settled in to IRF Baseline dementia and labile changes to behaviors is at baseline No pain reported SLUMS cannot be performed due to severity of dementia Left sided weakness is profound No falls Checked meds and labs Conferred with RN Reviewed therapy notes Review of Systems Neurological: Weakness, Incoordination, Confusion Objective Exam Vital Signs Vital Signs Date Time Temp Pulse Resp B/P (MAP) Pulse Ox O2 Delivery O2 Flow Rate FiO2 03/31/20 05:29 37.6 84 18 129/63 (85) 94 Room Air Capillary Refill : Less Than 3 Seconds General Appearance: No Apparent Distress, WD/WN, Chronically ill HEENT: PERRL/EOMI, Normal ENT Inspection, Pharynx Normal Neck: Full Range of Motion, Normal Inspection, Non Tender, Supple, Carotid Bruit Respiratory: Chest Non Tender, Lungs Clear, Normal Breath Sounds, No Accessory Muscle Use, No Respiratory Distress Cardiovascular: No Edema, No Gallop, No JVD, No Murmur, Normal Peripheral Pulses, Irregularly Irregular Gastrointestinal: Normal Bowel Sounds, No Organomegaly, No Pulsatile Mass, Non Tender, Soft Back: Normal Inspection, No CVA Tenderness, No Vertebral Tenderness Extremity: Normal Capillary Refill, Normal Inspection, Normal Range of Motion, Non Tender, No Calf Tenderness, No Pedal Edema Neurologic/Psychiatric: Alert, No Motor/Sensory Deficits, Normal Mood/Affect, account leader II-XII Norm as Tested, Abnormal Gait, Disoriented, Facial Droop (left), Motor Weakness (left sided partial flaccidity) Skin: Normal Color, Warm/Dry Lymphatic: No Adenopathy Results/Procedures Lab Patient resulted labs reviewed. FIM Transfers Therapy Code Descriptions/Definitions Functional [place] Measure: 0=Not Assessed/NA 4=Minimal Assistance 1=Total Assistance 5=Supervision or Setup 2=Maximal Assistance 6=Modified [place] 3=Moderate Assistance 7=Complete IndependenceSCALE: Activities may be completed with or without assistive devices. 8-Kxhibfyeni-zyobalo completes the activity by him/herself with no assistance from a helper. 5-Set-up or Clean-up Assistance-helper sets up or cleans up; patient completes activity. [place] assists only prior to or following the activity. 4-Supervision or Touching Assistance-helper provides verbal cues and/or touching/steadying and/or contact guard assistance as patient completes activity. Assistance may be provided throughout the activity or intermittently. 3-Partial/Moderate Assistance-helper does LESS THAN HALF the effort. [place] lifts, holds or supports trunk or limbs, but provides less than half the effort. 2-Substantial/Maximal Assistance-helper does MORE THAN HALF the effort. [place] lifts or holds trunk or limbs and provides more than half the effort. 8-Wlcvwhkrc-ppzbnb does ALL the effort. Patient does none of the effort to complete the activity. Or, the assistance of 2 or more helpers is required for the patient to complete the activity. If activity was not attempted, code reason: 7-Patient Refused. 9-Not Applicable-not attempted and the patient did not perform the activity before the current illness, exacerbation or injury. 10-Not Attempted due to Environmental Limitations-(lack of equipment, weather restraints, etc.). 88-Not Attempted due to Medical Conditions or Safety Concerns. Roll Left to Right (QC): 2 Sit to Lying (QC): 2 Sit to Stand (QC): 1 Chair/Ywf-gl-Olfoj Xfer(QC): 1 Car Transfer (QC): 88 Gait Training Does the Patient Walk?: No and Walking Goal IS indicated Walk 10 feet (QC): 88 Walk 50 ft with 2 Turns(QC): 88 Walk 150 ft (QC): 88 Walking 10ft/uneven surface-QC: 88 Wheelchair Training Does the Pt Use a Wheelchair?: Yes Distance: 150'x2 Wheel 50 ft with 2 turns (QC): 1 Wheel 150 ft (QC): 1 Type of Wheelchair: Manual Stair Training 1 Step (curb) (QC): 88 4 Steps (QC): 88 12 Steps (QC): 88 Balance Picking up an Object (QC): 88 ADL-Treatment Eating (QC): 3 (min A- pt requires assist bringing cup to mouth; cutting tasks will require assist.) Oral Hygiene (QC): 3 Shower/Bathe Self (QC): 1 (TD- pt requires constant cueing for continuation/ initiation of task. pt becomes distracted easily, unable to problem solve. Max Ax2 for bottom hygiene) Upper Body Dressing (QC): 2 (max A- unable to follow cues for doffing gown over BUE's, pt requires encouragement to follow direction and initiate movement of BUEs. ) Lower Body Dressing (QC): 1 (TD max A x2 ) On/Off Footwear (QC): 1 (TD- pt able to lift BLEs up to bring foot toward sock. Unable to follow cues for leg placement to don/ doff.) Toileting Hygiene (QC): 1 (TD with max A x2.) Assessment/Plan Assessment and Plan Assess & Plan/Chief Complaint Assessment: 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 02/21/20 transferred to New onset AF OAC DM HTN COPD Dementia Confusion at baseline Vit B12 deficiency Left sided weakness h/o UTI Plan: IRF protocol OAC Cardiology consultation Monitor closely 03/29/20: OAC Monitor AF Dementia at baseline 03/30/20: BM regimen Monitor left sided weakness (1) Acute ischemic right MCA stroke Status: Acute (2) Atrial fibrillation (3) History of UTI (4) Dementia (5) Left-sided weakness (6) COPD (chronic obstructive pulmonary disease) (7) B12 deficiency (8) Altered mental status Status: Acute (9) Diabetes mellitus (10) Hypertension KULDEEP PAYNE DO Mar 30, 2020 07:07
--- NOTE | 2020-03-30 07:08 | Individualized Plan of Care ---
Individualized Plan of Care Rehab Nursing IPOC Order Admission Date Mar 28, 2020 at 18:05 Current Orders Orders Admission Order(Inpt,Obs,Sdc) (03/28/20 13:15) Cassius Parra ,21 (03/28/20 13:15) Sequential Compression Device Q4H (03/28/20 13:15) Combustion Analyst-Inpt Rehab Con (03/28/20 13:15) Rehab Nursing Orders-Ipoc (03/28/20 13:15) Physical Therapy Rehab Orders (03/28/20 13:15) Occupational Therapy Rehab Ord (03/28/20 13:15) Speech Therapy Rehab Orders (03/28/20 13:15) Cbc With Automated Diff (03/29/20 06:00) Comprehensive Metabolic Panel (03/29/20 06:00) Intake & Output 06,14,22 (03/28/20 13:15) Precautions (Aru) (03/28/20 13:15) Rehab-Intensity Of Therapy (03/28/20 13:15) Initiate Admission Nursing Pro .admission (03/28/20 13:15) Acetaminophen Tablet (Tylenol Tablet) (03/28/20 13:15) Alprazolam Tablet (Xanax Tablet) (03/28/20 13:15) Calcium Carbonate Chew Tablet (Antacid C (03/28/20 13:15) Diphenhydramine Tablet (Benadryl Tablet) (03/28/20 13:15) Docusate Sodium Capsule (Colace Capsule) (03/28/20 13:15) Bisacodyl Suppository (Dulcolax Supposit (03/28/20 13:15) Lactulose Oral Solution (Enulose Oral So (03/28/20 13:15) Na Phos/Na Biphos Enema (Fleet Enema Raf (03/28/20 13:15) Guaifenesin/Codeine Syrup (Robitussin Ac (03/28/20 13:15) Loperamide Tablet (Imodium Tablet) (03/28/20 13:15) Enoxaparin Injection (Lovenox Injection) (03/28/20 13:15) Melatonin Tablet (Melatonin Tablet) (03/28/20 13:15) Polyethylene Glycol Powder Pkt (Miralax (03/28/20 21:00) Ondansetron Oral Dissolve Tab (Zofran (03/28/20 13:15) Senna S Tablet (Senokot S Tablet) (03/28/20 21:00) Initiate Admission Nursing Pro .admission (03/28/20 13:15) Apixaban Tablet (Eliquis Tablet) (03/28/20 21:00) Atorvastatin Tablet (Lipitor) (03/29/20 09:00) Cyanocobalamin Injection (Vitamin B-12 I (03/29/20 09:00) Losartan Tablet (Cozaar Tablet) (03/29/20 09:00) Therapeutic Multivitamin Tab (Vitamins, (03/29/20 07:00) Consult Cardiology (03/29/20 04:50) Ekg Tracing (03/29/20 07:00) Cho 60g/M 3snack (16-2000 Sanket) (03/29/20 Breakfast) Accucheck Bid DBID (03/29/20 04:52) Insulin Aspart (Novolog) (Novolog (Charg (03/29/20 06:00) Patient Visit (03/29/20 ) Speech Sound Lang Comp (03/29/20 ) Treat. Speech/Lang/Voice (03/29/20 ) Patient Visit (03/29/20 ) Pt Eval Moderate Complexity (03/29/20 ) Functional Activities, Ea 15 (03/29/20 ) Exercise Therap, Ea 15 Min (03/29/20 ) Patient Visit (03/30/20 ) Functional Activities, Ea 15 (03/30/20 ) Exercise Therap, Ea 15 Min (03/30/20 ) Rehab Nursing Orders: Ongoing Assess. of Cognitive Status, Ongoing Assess. of Function Status, Bladder Management, Bladder Scan, Bladder Training, Bowel Management, Bowel Training, Disease Management & Educaiton, DVT Prophylaxis, Fall Prevention, Fluid/Electrolyte/Nutrition Mgmt, Infection Prevention, Medication Management & Education, Management of Risks & Complications, Management of Skin Intergrity, Nutrition Management, Pain Management, Patient/Family Support, Safety Management, Swallow Precautions Intensity of Therapy to be met Patient to be seen: Min.3h per day/5 of 7d PT IPOC Problem List: Activity Tolerance, Functional Strength, Safety, Balance, Gait, Transfer, Bed Mobility, ROM Treatment Plan: Continue Plan of Care Bed Mobility, Education, Functional Activity Yuriy, Functional Strength, Group T herapy, Gait, Safety, Therapeutic Exercise, Transfers Treatment Duration: Apr 19, 2020 Frequency: At least 5 of 7 days/Wk (IRF) Estimated Hrs Per Day: 1.5 hours per day OT IPOC Problems: Decreased Activ Tolerance, Decreased Safety Aware, Decreased UE Strength, Dependent Transfers, Impaired Bed Mobility, Impaired Cognition, Impaired Coordination, Impaired Funct Balance, Impaired I ADL's, Impaired Self- Care Skills, Restricted Funct UE ROM OT Treatment, Training and Edu: Yes Plan of Care: ADL Retraining, Caregiver Training, Cognitive Retraining, Concurrent Therapy, Functional Mobility, Group Exercise/Act as Ind, Orthotic Fitting/Training, UE Funct Exercise/Act, UE Neuromus Re-Ed/Coord, W/C Management Training Treatment Duration: Apr 12, 2020 Frequency: At least 5 of 7 days/Wk (IRF) Estimated Hrs Per Day: 1.[address] IPOC Speech Therapy Treatment Plan: Continue Plan of Care Treatment Duration: Apr 10, 2020 Frequency: 4 times per week (Patient will receive skilled ST 4-5x per week) Estimated Hrs Per Day: .5 hour per day Combustion Analyst/Case Mgmt Combustion Analyst/Case Managemen: Discharge Planning Dietitian/Copper Plate Printer Dietitian/Copper Plate Printer to monitor nutritional status and make changes and/or recommendations as needed and work with speech pathology on dietary upgrades as the occur. Physician IPOC Medical Issues being managed closely and that require the 24 hour availability o f a physician: Recent severe ICA thrombosis with AF and baseline dementia at high risk for falls and delirium Medical Issues: Bowel/Bladder Function, DVT Prophylaxis, Falls Precautions, Fluid/Electrolyte/Nutrition Balance, Infection Protection, Pain Management Brief Synthesis of Preadmission Screen, Post-Admission Evaluation, and Therapy Evaluations: PT OT will focus on regaining strength and ambulatory skills with left sided weakness and provide easy to understand instructions due to limitations from severe dementia Medical Prognosis: Fair Anticipated Length of Stay: 10 days KULDEEP PAYNE DO Mar 30, 2020 07:08
[2020-03-30 08:00] VITALS: BP 142/66
--- NOTE | 2020-03-30 08:02 | Occupational Ther Daily Note ---
OT Current Status-Daily Note Subjective Pt in bed, alert/ awake. Oriented to person only. Pt agrees to OT/ PT co-treat. Pt denies pain. Pt continues to state inaccurate/ unrelated statements through treatment. OT addresses ADLs, attention/ problem solving, and UE movement. PT addresses fx transfers, LB movement, balance. Mental Status/Objective Patient Orientation: Person ADL-Treatment Therapy Code Descriptions/Definitions Functional [place] Measure: 0=Not Assessed/NA 4=Minimal Assistance 1=Total Assistance 5=Supervision or Setup 2=Maximal Assistance 6=Modified [place] 3=Moderate Assistance 7=Complete IndependenceSCALE: Activities may be completed with or without assistive devices. 1-Xcnwsxjhjt-utkmtum completes the activity by him/herself with no assistance from a helper. 5-Set-up or Clean-up Assistance-helper sets up or cleans up; patient completes activity. [place] assists only prior to or following the activity. 4-Supervision or Touching Assistance-helper provides verbal cues and/or touching/steadying and/or contact guard assistance as patient completes activity. Assistance may be provided throughout the activity or intermittently. 3-Partial/Moderate Assistance-helper does LESS THAN HALF the effort. [place] lifts, holds or supports trunk or limbs, but provides less than half the effort. 2-Substantial/Maximal Assistance-helper does MORE THAN HALF the effort. [place] lifts or holds trunk or limbs and provides more than half the effort. 2-Vnktqkhso-ncrgxq does ALL the effort. Patient does none of the effort to complete the activity. Or, the assistance of 2 or more helpers is required for the patient to complete the activity. If activity was not attempted, code reason: 7-Patient Refused. 9-Not Applicable-not attempted and the patient did not perform the activity before the current illness, exacerbation or injury. 10-Not Attempted due to Environmental Limitations-(lack of equipment, weather restraints, etc.). 88-Not Attempted due to Medical Conditions or Safety Concerns. Shower/Bathe Self (QC): 3 (mod A for BLE feet/ calves. Pt able to wash all areas with moderate cues for initiation of task/ cues for thoroughness. Pt completes bottom hygiene post-rolling (cues for roll). Pt utilizes L UE to wash R side without cues this date.) Upper Body Dressing (QC): 3 (min A for UE positioning/ gown positioning) Lower Body Dressing (QC): 2 (TD (pt completes bed roll with cues, pt able to manage with verbal cues and demonstration). Pt rolls to complete breif donning.) On/Off Footwear: 1 (TD) Toileting Hygiene (QC): 3 (Pt completes dutch hygiene and bottom hygiene during roll in bed. Pt able to reach all areas with min physical A for thoroughness.) Other Treatment Pt seen in bed. Agrees to sponge bath. Pt requires significantly less cues this date. Pt able to wash UB with thoroughness, bottom/ dutch area with min A and LB with max A. Pt initiates movement and utilization of LUE for R side washing without cues. Pt requires mod cues for attention this date and cues for redirection. Pt completes rolls in bed with cues. Unable to bridge with cues. Pt bed mob (supine to sit) with max A. Pt sit to stand and transfer to recliner set EOB with TD (max Ax2). Pt sits in recliner, OT positions for comfort/ safety on L side due to L side lean. Pt left with all needs met, call light in reach. Education OT Patient Education: Correct positioning, Modified ADL techniques, Progress toward Goal/Update tx plan, Purpose of tx/functional activities, Safety issues, Transfer techniques Teaching Recipient: Patient Teaching Methods: Demonstration, Discussion Response to Teaching: Verbalize Understanding, Return Demonstration, [facility] Short Term Goals Short Term Goals Time Frame: Apr 05, 2020 Eatin Oral hygiene: 4 Toileting hygiene: 2 Shower/bathe self: 2 Upper body dressin Lower body dressin Putting on/taking off footwear: 2 OT Retirement Goals Aircraft Engine Installer Goals Time Frame: Apr 12, 2020 Eating (QC): 6 Oral Hygiene (QC): 6 Toileting Hygiene (QC): 3 Shower/Bathe Self (QC): 3 Upper Body Dressing (QC): 5 Lower Body Dressing (QC): 3 On/Off Footwear (QC): 3 Additional Goals: 1-Demonstrate ADL Tasks, 2-Verbalize Understanding, 3- ImproveStrength/Yuriy 1=Demonstrate adherence to instructed precautions during ADL tasks. 2=Patient will verbalize/demonstrate understanding of assistive devices/modifications for ADL. 3=Patient will improve strength/tolerance for activity to enable patient to perform ADL's. OT Education/Plan Problem List/Assessment Assessment: Decreased Activ Tolerance, Decreased Safety Aware, Decreased UE Strength, Dependent Transfers, Impaired Bed Mobility, Impaired Cognition, Impaired Coordination, Impaired Funct Balance, Impaired I ADL's, Impaired Self- Care Skills, Restricted Funct UE ROM Discharge Recommendations Plan/Recommendations: Continue POC Therapy Discharge Recommendati: 24 Hour Supervision, Post Acute OT Treatment Plan/Plan of Care Treatment,Training & Education: Yes Patient would benefit from OT for education, treatment and training to promote independence in ADL's, mobility, safety and/or upper extremity function for ADL's. Plan of Care: ADL Retraining, Caregiver Training, Cognitive Retraining, Concurrent Therapy, Functional Mobility, Group Exercise/Act as Ind, Orthotic Fitting/Training, UE Funct Exercise/Act, UE Neuromus Re-Ed/Coord, W/C Management Training Treatment Duration: Apr 12, 2020 Frequency: At least 5 of 7 days/Wk (IRF) Estimated Hrs Per Day: 1.5 hours per day Agreement: Yes Rehab Potential: Guarded Time/GCodes Start Time: 07:30 Stop Time: 08:00 Total Time Billed (hr/min): 30 Billed Treatment Time 1, ADL 2 (30) OT/ PT co-treat: OT addresses ADLs, attention/ problem solving, and UE movement. PT addresses fx transfers, LB movement, balance. SILVANA ESTRELLA OTR Mar 30, 2020 08:02
--- NOTE | 2020-03-30 08:17 | Physical Therapy Daily Note ---
PT Daily Note-Current Subjective Pt in bed, alert/ awake. Oriented to person only. Pt agrees to OT/ PT co-treat. Pt denies pain. Pt continues to state inaccurate/ unrelated statements through treatment. OT addresses ADLs, attention/ problem solving, and UE movement. PT addresses fx transfers, LB movement, balance. Pain Location: No Pain Reported Mental Status Patient Orientation: Person Transfers SCALE: Activities may be completed with or without assistive devices. 0-Adyfocdobk-njohxhe completes the activity by him/herself with no assistance from a helper. 5-Set-up or Clean-up Assistance-helper sets up or cleans up; patient completes activity. [place] assists only prior to or following the activity. 4-Supervision or Touching Assistance-helper provides verbal cues and/or touching/steadying and/or contact guard assistance as patient completes activity. Assistance may be provided throughout the activity or intermittently. 3-Partial/Moderate Assistance-helper does LESS THAN HALF the effort. [place] lifts, holds or supports trunk or limbs, but provides less than half the effort. 2-Substantial/Maximal Assistance-helper does MORE THAN HALF the effort. [place] lifts or holds trunk or limbs and provides more than half the effort. 3-Sivrwksgg-zdfwfh does ALL the effort. Patient does none of the effort to complete the activity. Or, the assistance of 2 or more helpers is required for the patient to complete the activity. If activity was not attempted, code reason: 7-Patient Refused. 9-Not Applicable-not attempted and the patient did not perform the activity before the current illness, exacerbation or injury. 10-Not Attempted due to Environmental Limitations-(lack of equipment, weather restraints, etc.). 88-Not Attempted due to Medical Conditions or Safety Concerns. Roll Left & Right (QC): 3 Lying to Sitting/Side of Bed(Q: 2 Sit to Stand (QC): 2 Chair/Mhk-rb-Efhec Xfer(QC): 2 Weight Bearing Full Weight Bearing Full Weight Bearing Exercises Seated Therapy Exercises: Ankle pumps, Long arc quads, Hip flexion, Kicking activity Seated Reps: 15 Treatments Pt seen in bed. Agrees to sponge bath. Pt requires significantly less cues this date. Pt able to wash UB with thoroughness, bottom/ dutch area with min A and LB with max A. Pt initiates movement and utilization of LUE for R side washing without cues. Pt requires mod cues for attention this date and cues for redirection. Pt completes rolls in bed with cues. Unable to bridge with cues. Pt bed mob (supine to sit) with max A. Pt sit to stand and transfer to recliner set EOB with TD (max Ax2). Pt sits in recliner, OT positions for comfort/ safety on L side due to L side lean. PT couples Seated EX then reclines chair and assists with pillow under B LE to comfort. Pt left with all needs met, call light in reach. Assessment Current Status: Fair Progress Pt confused and needs TC & VC to complete tasks. PT Short Term Goals Short Term Goals Time Frame: Apr 05, 2020 Roll Left & Right: 3 Sit to lyin Lying to sitting on side of be: 3 Sit to stand: 3 Chair/rgo-dj-ugwiw transfer: 3 Walk 10 feet: 3 PT Prison Goals [employer] Teacher Goals PT Prison Goals Time Frame: Apr 19, 2020 Roll Left & Right (QC): 3 (Emily) Sit to Lying (QC): 3 (Emily) Lying-Sitting on Side/Bed(QC): 3 Sit to Stand (QC): 3 (Emily) Chair/Vrm-yh-Ugrbt Xfer(QC): 3 (Emily) Toilet Transfer (QC): 3 (Emily) Car Transfer (QC): 3 (Emily) Does the Patient Walk: Yes Walk 10 feet (QC): 3 (Emily) Walk 50ft with 2 Turns (QC): 88 Walk 150 ft (QC): 88 Walking 10ft on Uneven Surface: 88 1 Step (curb) (QC): 88 4 Steps (QC): 88 12 Steps (QC): 88 Picking up an Object (QC): 88 Wheel 50 feet with 2 turns (QC: 3 Wheel 150 feet: 3 PT Plan Problem List Problem List: Activity Tolerance, Functional Strength, Safety, Transfer Treatment/Plan Treatment Plan: Continue Plan of Care Treatment Plan: Bed Mobility, Education, Functional Activity Yuriy, Functional Strength, Group Therapy, Gait, Safety, Therapeutic Exercise, Transfers Treatment Duration: Apr 19, 2020 Frequency: At least 5 of 7 days/Wk (IRF) Estimated Hrs Per Day: 1.5 hours per day Patient and/or Family Agrees t: Yes Safety Risks/Education Patient Education: Transfer Techniques, Correct Positioning, Safety Issues Teaching Recipient: Patient Teaching Methods: Discussion Response to Teaching: Reinforcement Needed Time/GCodes Time In: 730 Time Out: 800 Total Billed Treatment Time: 30 Total Billed Treatment 1, FA (20m) & Ex (10m) Co-treat w/OT for 30m (730-800) JASPREET FAUST GARMENT MANUFACTURER Mar 30, 2020 08:17
[2020-03-30] MEDS: LOSARTAN 25 MG (COZAAR) TAB PO SCH (08:47)
[2020-03-30] MEDS: APIXABAN 5 MG (ELIQUIS) TABLET PO SCH ×2 (08:47→20:05)
[2020-03-30] MEDS: SENNA W/DOCUSATE (SENOKOT S) TABLET PO SCH ×2 (08:57→20:05)
[2020-03-30] MEDS: polyethylene glycoL POWDER 17 GM (MIRALAX) PACK PO SCH ×2 (08:57→20:05)
--- NOTE | 2020-03-30 09:00 | NUR ---
PLEASANTLY CONFUSED. IS VERY CHEERFUL. NO COMPLAINTS.
[2020-03-30] MEDS: CYANOCOBALAMIN INJ 1000 MCG/ML IM SCH (09:08)
--- NOTE | 2020-03-30 12:03 | Progress Note - Cardiology ---
Cardiology SOAP Progress Note Subjective: Does not report cp or palp or syncope or shortness of breath or other symptoms Says feels well Objective: I&O/Vital Signs 03/30/20 03/30/20 05:12 09:00 Temp 36.4 Pulse 78 Resp 18 B/P (MAP) 136/64 (88) Pulse Ox 96 O2 Delivery Room Air Room Air 03/30/20 00:00 Intake Total 300 ml Balance 300 ml Weight (Pounds): 170 Weight (Ounces): 0 Weight (Calculated Kilograms): [id number] Constitutional: No AAO x 3; well-developed, other (Oriented to self) Respiratory: No accessory muscle use, No respiratory distress; chest expansion is symmetric, chest is bilaterally symmetric, lungs clear to auscultation Cardiovascular: regular rate-rhythm; No JVD; S1 and S2 Gastrointestional: No tender; soft, round, audible bowel sounds Extremities: no lower extremity edema bilateral Neurologic/Psychiatric: No oriented x 3; other (left upper and lower extremity weakness, LUE 3/5, LLE 4/5) Skin: No rash on exposed areas, No ulcerations on exposed areas Results/Procedures: Labs Laboratory Tests 03/29/20 15:37: Glucometer 118H 03/29/20 20:03: Glucometer 140H 03/30/20 05:46: Glucometer 130H 03/30/20 10:50: Glucometer 143H Laboratory Tests 03/29/20 04:25 A/P: Assessment: S/P right MCA CVA with left-sided weakness d/t R ICA thrombus per [facility] Reported h/o PAF OAC with Eliquis (started following CVA) MPI of November 2016 showed LVEF 63% no signif ischemia or infarction Echo of November 2016 showed LVEF 60-65% COPD DM 2 HLD CKD 2 Alzheimers PTSD Anxiety/depression Plan: Management of CVA is with rehab services - Dr. Mac Continue OAC with Eliquis Monitor and correct labs as indicated RUDOLPH MELO MD FACP FAC CCDS Mar 30, 2020 12:03
--- NOTE | 2020-03-30 13:00 | NUR ---
ASSISTED BACK TO BED FROM CHAIR BY 2 NURSES. NO BM X 5 DAYS AND MEDICATED WITH DULCOLAX SUPPOSITORY.
--- NOTE | 2020-03-30 15:00 | NUR ---
REQUESTED "UP TO BATHROOM". UP TO COMMODE WITH HELP AND DID VOID AND EXPELLED BM. VISITED WITH AND GRANDSON PER FACE TIME AND ENJOYED IT.
[2020-03-30 17:49] VITALS: BP 109/54
[2020-03-31 05:29] VITALS: BP 129/63
[2020-03-31] MEDS: inSUlin ASPART (NovoLOG) 1 UNIT/0.01 ML (CHARGE PER UNIT) SC SCH ×4 (05:41→20:57)
[2020-03-31] MEDS: MULTIVIT W/MINERALS TAB (THERAGRAN M) PO SCH (06:19)
[2020-03-31 08:00] VITALS: BP 116/64
[2020-03-31] MEDS: SENNA W/DOCUSATE (SENOKOT S) TABLET PO SCH ×2 (08:45→20:52)
[2020-03-31] MEDS: LOSARTAN 25 MG (COZAAR) TAB PO SCH (08:46)
[2020-03-31] MEDS: CYANOCOBALAMIN INJ 1000 MCG/ML IM SCH (08:46)
[2020-03-31] MEDS: polyethylene glycoL POWDER 17 GM (MIRALAX) PACK PO SCH ×2 (08:46→20:52)
[2020-03-31] MEDS: APIXABAN 5 MG (ELIQUIS) TABLET PO SCH ×2 (08:46→20:58)
--- NOTE | 2020-03-31 09:17 | PM&R Progress Note ---
Subjective HPI/CC On Admission Date Seen by Provider: Mar 31, 2020 Time Seen by Provider: 12:30 Subjective/Events-last exam 03/31/20: Monitoring BP No bleed issues from OAC AF rate controlled BM x 4 after suppository Delusions at times 03/30/20: Doing well Leans to the left Suppository will be required since no BM for several days No changes otherwise Patient settled in to IRF Baseline dementia and labile changes to behaviors is at baseline No pain reported SLUMS cannot be performed due to severity of dementia Left sided weakness is profound No falls Checked meds and labs Conferred with RN Reviewed therapy notes Review of Systems General: Fatigue Neurological: Confusion Objective Exam Vital Signs Vital Signs Date Time Temp Pulse Resp B/P (MAP) Pulse Ox O2 Delivery O2 Flow Rate FiO2 03/31/20 09:00 Room Air 03/31/20 05:29 37.6 84 18 129/63 (85) 94 Capillary Refill : Less Than 3 Seconds General Appearance: No Apparent Distress, WD/WN, Chronically ill HEENT: PERRL/EOMI, Normal ENT Inspection, Pharynx Normal Neck: Full Range of Motion, Normal Inspection, Non Tender, Supple, Carotid Bruit Respiratory: Chest Non Tender, Lungs Clear, Normal Breath Sounds, No Accessory Muscle Use, No Respiratory Distress Cardiovascular: No Edema, No Gallop, No JVD, No Murmur, Normal Peripheral Pulses, Irregularly Irregular Gastrointestinal: Normal Bowel Sounds, No Organomegaly, No Pulsatile Mass, Non Tender, Soft Back: Normal Inspection, No CVA Tenderness, No Vertebral Tenderness Extremity: Normal Capillary Refill, Normal Inspection, Normal Range of Motion, Non Tender, No Calf Tenderness, No Pedal Edema Neurologic/Psychiatric: Alert, No Motor/Sensory Deficits, Normal Mood/Affect, space technologist II-XII Norm as Tested, Abnormal Gait, Disoriented, Facial Droop (left), Motor Weakness (left sided partial flaccidity) Skin: Normal Color, Warm/Dry Lymphatic: No Adenopathy Results/Procedures Lab Patient resulted labs reviewed. FIM Transfers Therapy Code Descriptions/Definitions Functional [place] Measure: 0=Not Assessed/NA 4=Minimal Assistance 1=Total Assistance 5=Supervision or Setup 2=Maximal Assistance 6=Modified [place] 3=Moderate Assistance 7=Complete IndependenceSCALE: Activities may be completed with or without assistive devices. 4-Bouxljqhkv-cwwhtiq completes the activity by him/herself with no assistance from a helper. 5-Set-up or Clean-up Assistance-helper sets up or cleans up; patient completes activity. [place] assists only prior to or following the activity. 4-Supervision or Touching Assistance-helper provides verbal cues and/or touching/steadying and/or contact guard assistance as patient completes activity. Assistance may be provided throughout the activity or intermittently. 3-Partial/Moderate Assistance-helper does LESS THAN HALF the effort. [place] lifts, holds or supports trunk or limbs, but provides less than half the effort. 2-Substantial/Maximal Assistance-helper does MORE THAN HALF the effort. [place] lifts or holds trunk or limbs and provides more than half the effort. 0-Wrqchdxey-loeijt does ALL the effort. Patient does none of the effort to complete the activity. Or, the assistance of 2 or more helpers is required for the patient to complete the activity. If activity was not attempted, code reason: 7-Patient Refused. 9-Not Applicable-not attempted and the patient did not perform the activity before the current illness, exacerbation or injury. 10-Not Attempted due to Environmental Limitations-(lack of equipment, weather restraints, etc.). 88-Not Attempted due to Medical Conditions or Safety Concerns. Roll Left to Right (QC): 3 Sit to Lying (QC): 2 Sit to Stand (QC): 2 Chair/Yxs-nd-Givfo Xfer(QC): 2 Car Transfer (QC): 88 Gait Training Does the Patient Walk?: No and Walking Goal IS indicated Walk 10 feet (QC): 88 Walk 50 ft with 2 Turns(QC): 88 Walk 150 ft (QC): 88 Walking 10ft/uneven surface-QC: 88 Wheelchair Training Does the Pt Use a Wheelchair?: Yes Distance: 150'x2 Wheel 50 ft with 2 turns (QC): 1 Wheel 150 ft (QC): 1 Type of Wheelchair: Manual Stair Training 1 Step (curb) (QC): 88 4 Steps (QC): 88 12 Steps (QC): 88 Balance Picking up an Object (QC): 88 ADL-Treatment Eating (QC): 3 (min A- pt requires assist bringing cup to mouth; cutting tasks will require assist.) Oral Hygiene (QC): 3 Shower/Bathe Self (QC): 3 (mod A for BLE feet/ calves. Pt able to wash all areas with moderate cues for initiation of task/ cues for thoroughness. Pt completes bottom hygiene post-rolling (cues for roll). Pt utilizes L UE to wash R side without cues this date.) Upper Body Dressing (QC): 3 (min A for UE positioning/ gown positioning) Lower Body Dressing (QC): 2 (TD (pt completes bed roll with cues, pt able to manage with verbal cues and demonstration). Pt rolls to complete breif donning.) On/Off Footwear (QC): 1 (TD) Toileting Hygiene (QC): 3 (Pt completes dutch hygiene and bottom hygiene during roll in bed. Pt able to reach all areas with min physical A for thoroughness.) Assessment/Plan Assessment and Plan Assess & Plan/Chief Complaint Assessment: 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 02/21/20 transferred to New onset AF OAC DM HTN COPD Dementia Confusion at baseline Vit B12 deficiency Left sided weakness h/o UTI Plan: IRF protocol OAC Cardiology consultation Monitor closely 03/29/20: OAC Monitor AF Dementia at baseline 03/30/20: BM regimen Monitor left sided weakness 03/31/20: Monitor delusions Monitor BP (1) Acute ischemic right MCA stroke Status: Acute (2) Atrial fibrillation (3) History of UTI (4) Dementia (5) Left-sided weakness (6) COPD (chronic obstructive pulmonary disease) (7) B12 deficiency (8) Altered mental status Status: Acute (9) Diabetes mellitus (10) Hypertension KULDEEP PAYNE DO Mar 31, 2020 09:17
--- NOTE | 2020-03-31 11:30 | NUR ---
REMAINS VERY CHEERFUL AND CONFUSED. DENIES COMPLAINTS. UP TO RECLINER FOR LUNCH. TALKS TO IF HE WERE IN ROOM WITH HER. FACE TIMED WITH AGAIN TODAY AND APPEARED TO ENJOY IT.
--- NOTE | 2020-03-31 12:29 | Progress Note - Cardiology ---
Cardiology SOAP Progress Note Subjective: Does not report any symptoms. No cp or palp or syncope or shortness of breath Objective: I&O/Vital Signs 03/31/20 03/31/20 05:29 09:00 Temp 37.6 Pulse 84 Resp 18 B/P (MAP) 129/63 (85) Pulse Ox 94 O2 Delivery Room Air Room Air 03/31/20 00:00 Intake Total 880 ml Balance 880 ml Weight (Pounds): 170 Weight (Ounces): 0 Weight (Calculated Kilograms): 77.755180 Constitutional: No AAO x 3; well-developed, other (Oriented to self) Respiratory: No accessory muscle use, No respiratory distress; chest expansion is symmetric, chest is bilaterally symmetric, lungs clear to auscultation Cardiovascular: regular rate-rhythm; No JVD; S1 and S2 Gastrointestional: No tender; soft, round, audible bowel sounds Extremities: no lower extremity edema bilateral Neurologic/Psychiatric: No oriented x 3; other (left upper and lower extremity weakness, LUE 3/5, LLE 4/5) Skin: No rash on exposed areas, No ulcerations on exposed areas Results/Procedures: Labs Laboratory Tests 03/30/20 15:12: Glucometer 139H 03/30/20 20:05: Glucometer 148H 03/31/20 05:25: Glucometer 128H 03/31/20 10:46: Glucometer 164H A/P: Assessment: S/P right MCA CVA with left-sided weakness d/t R ICA thrombus per [facility] records Reported h/o PAF OAC with Eliquis (started following CVA) MPI of November 2016 showed LVEF 63% no signif ischemia or infarction Echo of November 2016 showed LVEF 60-65% COPD DM 2 HLD CKD 2 Alzheimers PTSD Anxiety/depression Plan: Management of CVA is with rehab services - Dr. Mac Continue OAC with Eliquis Monitor from time to time RUDOLPH MELO MD FACP [facility] Mar 31, 2020 12:29
[2020-03-31 18:00] VITALS: BP 130/59
[2020-04-01 05:23] VITALS: BP 118/78
[2020-04-01 06:26] LABS: BASOPHILS # (AUTO) 0.1 10^3/uL (0.0-0.1); BASOPHILS % (AUTO) 1 % (0-10); EOSINOPHILS # (AUTO) 0.5 10^3/uL (0.0-0.3); EOSINOPHILS % (AUTO) 6 % (0-10); HEMATOCRIT 34 % (35-52); HEMOGLOBIN 11.8 g/dL (11.5-16.0); LYMPHOCYTES # (AUTO) 3.2 10^3/uL (1.0-4.0); LYMPHOCYTES % (AUTO) 38 % (12-44); MEAN CORPUSCULAR HEMOGLOBIN 38 pg (25-34); MEAN CORPUSCULAR HGB CONC 35 g/dL (32-36); MEAN CORPUSCULAR VOLUME 109 fL (80-99); MEAN PLATELET VOLUME 11.4 fL (9.0-12.2); MONOCYTES % (AUTO) 12 % (0-12); NEUTROPHILS # (AUTO) 3.5 10^3/uL (1.8-7.8); NEUTROPHILS % (AUTO) 42 % (42-75); PLATELET COUNT 287 10^3/uL (130-400); WHITE BLOOD COUNT 8.4 10^3/uL (4.3-11.0)
[2020-04-01] MEDS: CYANOCOBALAMIN 1,000 MCG (VITAMIN B-12) TABLET PO SCH (06:27)
[2020-04-01] MEDS: MULTIVIT W/MINERALS TAB (THERAGRAN M) PO SCH (06:27)
[2020-04-01] MEDS: inSUlin ASPART (NovoLOG) 1 UNIT/0.01 ML (CHARGE PER UNIT) SC SCH ×4 (06:30→20:52)
[2020-04-01 06:44] LABS: ALBUMIN 3.6 GM/DL (3.2-4.5); CHLORIDE 104 MMOL/L (98-107); POTASSIUM 3.9 MMOL/L (3.6-5.0); SODIUM 137 MMOL/L (135-145)
[2020-04-01 06:46] LABS: GLUCOSE 138 MG/DL (70-105)
[2020-04-01 06:48] LABS: BILIRUBIN,TOTAL 0.8 MG/DL (0.1-1.0); CARBON DIOXIDE 22 MMOL/L (21-32)
[2020-04-01 06:50] LABS: ALKALINE PHOSPHATASE 69 U/L (40-136); GFR ESTIMATED > 60
[2020-04-01 06:51] LABS: BUN/CREATININE RATIO 18
[2020-04-01 06:53] LABS: ALANINE AMINOTRANSFERASE 34 U/L (0-55)
[2020-04-01] MEDS: LOSARTAN 25 MG (COZAAR) TAB PO SCH (08:09)
[2020-04-01] MEDS: polyethylene glycoL POWDER 17 GM (MIRALAX) PACK PO SCH ×2 (08:09→20:52)
[2020-04-01] MEDS: APIXABAN 5 MG (ELIQUIS) TABLET PO SCH ×2 (08:09→20:52)
[2020-04-01] MEDS: SENNA W/DOCUSATE (SENOKOT S) TABLET PO SCH ×2 (08:10→20:52)
--- NOTE | 2020-04-01 08:10 | Speech Therapy Daily Note ---
Speech Daily Progress Note Subjective Date Seen by Provider: Apr 01, 2020 Time Seen by Provider: 00:30 Patient had just finished breakfast and was alert and talkative this morning. Objective Patient was provided a calendar for orientation. Patient was able to answer calendar questions related to dates and events at 75% with moderate cues and/or redirections. Assessment Assessment Current Status: Fair Progress Treatment Plan Continue Plan of Care Speech Short Term Goals Short Term Goals Short Term Goals 1) Patient will complete memory tasks at 75% or greater. 2) Patient will complete safety awareness tasks at 75% or greater. 3) Patient will complete problem solving tasks at 75% or greater. Speech Correction Goals Seat Scooper Machine Goals Patient will improve cognitive-communication necessary for safety and daily living tasks with minimal assist. Speech-Plan Patient/Family Goals Patient/Family Goals: Patient plans on returning to her home with her . Treatment Plan Speech Therapy Treatment Plan: Continue Plan of Care Treatment Duration: Apr 10, 2020 Frequency: 4 times per week (Patient will receive skilled ST 4-5x per week) Estimated Hrs Per Day: .5 hour per day Rehab Potential: Guarded Barriers to Learning: Patient's recent CVA, Alzheimer's Pt/Family Agrees to Plan: Yes Safety Risks/Education Teaching Recipient: Patient Teaching Methods: Demonstration, Discussion Response to Teaching: Verbalize Understanding, Return Demonstration, Reinforcement Needed Education Topics Provided: Safety within her room, orientation tasks Time Speech Therapy Time In: 08:30 Speech Therapy Time Out: 09:00 Total Billed Time: 30 Billed Treatment Time 1ABHIJEET BETH[address] ST Apr 01, 2020 08:10
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
--- NOTE | 2020-04-01 10:39 | Physical Therapy Daily Note ---
PT Daily Note-Current Subjective Pt presents laying supine in bed. Pt agrees to PT. Pt reports no pain. Appearance At conclusion of PT treatment patient is assisted into recliner (chair alarm on). Pt has access to tray, call button, and all needs have been met. Mental Status Patient Orientation: Person, Confused, Eyes Open Transfers SCALE: Activities may be completed with or without assistive devices. 9-Qhcgvojcwg-qudflvw completes the activity by him/herself with no assistance from a helper. 5-Set-up or Clean-up Assistance-helper sets up or cleans up; patient completes activity. [place] assists only prior to or following the activity. 4-Supervision or Touching Assistance-helper provides verbal cues and/or touching/steadying and/or contact guard assistance as patient completes activity. Assistance may be provided throughout the activity or intermittently. 3-Partial/Moderate Assistance-helper does LESS THAN HALF the effort. [place] lifts, holds or supports trunk or limbs, but provides less than half the effort. 2-Substantial/Maximal Assistance-helper does MORE THAN HALF the effort. [place] lifts or holds trunk or limbs and provides more than half the effort. 4-Empqbjtmu-ncysje does ALL the effort. Patient does none of the effort to complete the activity. Or, the assistance of 2 or more helpers is required for the patient to complete the activity. If activity was not attempted, code reason: 7-Patient Refused. 9-Not Applicable-not attempted and the patient did not perform the activity before the current illness, exacerbation or injury. 10-Not Attempted due to Environmental Limitations-(lack of equipment, weather restraints, etc.). 88-Not Attempted due to Medical Conditions or Safety Concerns. Lying to Sitting/Side of Bed(Q: 2 Sit to Stand (QC): 2 Chair/Byg-aq-Rsvwi Xfer(QC): 2 Weight Bearing Full Weight Bearing Full Weight Bearing Wheelchair Training Does the Pt Use a Wheelchair?: Yes Wheel 50 ft with 2 turns (QC): 2 Wheel 150 ft (QC): 1 Type of Wheelchair: Manual 200'x2; Pt requires max verbal and tactile cueing to propel with RUE; pt still requires assistance to complete propulsion. Exercises Seated balance activity with cones, reaching forward and to the side, working on limits of stability and working on left arm reaching for cones. Treatments Transfers and seated balance and WC mobility, dressing Assessment Current Status: Poor Progress Co-treated with OT due to poor patient mobility, strength, endurance, sitting and standing balance, left hemiparesis, the need to coordinate UE and LE during activity. PT worked on bed mobility and transfers, WC mobility, sitting balance and balance and positioning during dressing, OT worked on dressing, sitting balance, UE positioning and safety during activity. Patient has poor participation. She talks baby talk and jokes around most of the time and is very confused. PT Short Term Goals Short Term Goals Time Frame: Apr 05, 2020 Roll Left & Right: 3 Sit to lyin Lying to sitting on side of be: 3 Sit to stand: 3 Chair/uly-bf-nmeuz transfer: 3 Walk 10 feet: 3 PT Retail Store Associate Goals Residential Goals PT Retail Store Associate Goals Time Frame: Apr 19, 2020 Roll Left & Right (QC): 3 (Emily) Sit to Lying (QC): 3 (Emily) Lying-Sitting on Side/Bed(QC): 3 Sit to Stand (QC): 3 (Emily) Chair/Eyc-ja-Zlnae Xfer(QC): 3 (Emily) Toilet Transfer (QC): 3 (Emily) Car Transfer (QC): 3 (Emily) Does the Patient Walk: Yes Walk 10 feet (QC): 3 (Emily) Walk 50ft with 2 Turns (QC): 88 Walk 150 ft (QC): 88 Walking 10ft on Uneven Surface: 88 1 Step (curb) (QC): 88 4 Steps (QC): 88 12 Steps (QC): 88 Picking up an Object (QC): 88 Wheel 50 feet with 2 turns (QC: 3 Wheel 150 feet: 3 PT Plan Problem List Problem List: Activity Tolerance, Functional Strength, Safety, Balance, Gait, Transfer, Bed Mobility, ROM Treatment/Plan Treatment Plan: Continue Plan of Care Treatment Plan: Bed Mobility, Education, Functional Activity Yuriy, Functional Strength, Group Therapy, Gait, Safety, Therapeutic Exercise, Transfers Treatment Duration: Apr 19, 2020 Frequency: At least 5 of 7 days/Wk (IRF) Estimated Hrs Per Day: 1.5 hours per day Patient and/or Family Agrees t: Yes Safety Risks/Education Patient Education: Transfer Techniques, Correct Positioning, W/C Management, Safety Issues Teaching Recipient: Patient Teaching Methods: Demonstration, Discussion Response to Teaching: Reinforcement Needed Time/GCodes Time In: 0900 Time Out: 1000 Total Billed Treatment Time: 60 Total Billed Treatment 1 visit NM 25' FA 35' co-treated with OT for 60' CONCEPCIÓN CARLOS PT Apr 01, 2020 10:39
[2020-04-01] MEDS ORDERED: ACETAMINOPHEN 325 MG TABLET ONE (11:07)
--- NOTE | 2020-04-01 11:59 | Occupational Ther Daily Note ---
OT Current Status-Daily Note Subjective Pt alert, lying in bed. Pt agrees to therapy. No c/o pain. Pt has cognitive deficits for time, place and situation. Mental Status/Objective Patient Orientation: Person Attachments: IV ADL-Treatment Therapy Code Descriptions/Definitions Functional [place] Measure: 0=Not Assessed/NA 4=Minimal Assistance 1=Total Assistance 5=Supervision or Setup 2=Maximal Assistance 6=Modified [place] 3=Moderate Assistance 7=Complete IndependenceSCALE: Activities may be completed with or without assistive devices. 8-Oyxmfkrzac-xihqiat completes the activity by him/herself with no assistance from a helper. 5-Set-up or Clean-up Assistance-helper sets up or cleans up; patient completes activity. [place] assists only prior to or following the activity. 4-Supervision or Touching Assistance-helper provides verbal cues and/or touching/steadying and/or contact guard assistance as patient completes activity. Assistance may be provided throughout the activity or intermittently. 3-Partial/Moderate Assistance-helper does LESS THAN HALF the effort. [place] lifts, holds or supports trunk or limbs, but provides less than half the effort. 2-Substantial/Maximal Assistance-helper does MORE THAN HALF the effort. [place] lifts or holds trunk or limbs and provides more than half the effort. 1-Ipovesvjj-aqlzek does ALL the effort. Patient does none of the effort to complete the activity. Or, the assistance of 2 or more helpers is required for the patient to complete the activity. If activity was not attempted, code reason: 7-Patient Refused. 9-Not Applicable-not attempted and the patient did not perform the activity before the current illness, exacerbation or injury. 10-Not Attempted due to Environmental Limitations-(lack of equipment, weather restraints, etc.). 88-Not Attempted due to Medical Conditions or Safety Concerns. Oral Hygiene (QC): 4 Upper Body Dressing (QC): 2 Lower Body Dressing (QC): 1 On/Off Footwear: 2 (Pt able to lift B LE for AVILES to don.) Other Treatment 1st treatment: Co-treat with PT ([id number]), skills of 2 clinicians required for skilled instruction and care due to pt's dependent mobility, decreased cognition and decreased functional ability. PT working on functional transfers, w/c mobility and sitting balance. OT working on B UE placement during functional transfers and w/c mobility, ADLs and functional sitting balance. Pt blanks out by look down or staring off into space throughout session and requires verbal stimuli to bring back to focus. Pt requires max cues to initiate donning/doffing shirt. Max A to don shirt. Dependent with donning/doffing pants. Assist x2 for all transfers and standing. Working on pt completing own w/c mobility, max verbal cues and assist to have pt use R hand then would not use L hand. Pt requires max encouragement to use L hand for functional tasks throughout session. Dynamic sitting with reaching/grasping tasks on therapy mat table, assist x2. Assist x2 to SPT from w/c to recliner after session. Call light/phone in reach. All needs met in room. 2nd treatment: ([id number]) Pt given oral cleansing supplies sitting in recliner. Pt able to take of cap of toothpaste and apply to toothbrush using L hand. Pt requires verbal cues for focusing on task. After session, pt sitting in recliner with call light/phone in reach. All needs met in room. OT Short Term Goals Short Term Goals Time Frame: Apr 05, 2020 Eatin Oral hygiene: 4 Toileting hygiene: 2 Shower/bathe self: 2 Upper body dressin Lower body dressin Putting on/taking off footwear: 2 OT Artist Woodblock Goals Fdc Goals Time Frame: Apr 12, 2020 Eating (QC): 6 Oral Hygiene (QC): 6 Toileting Hygiene (QC): 3 Shower/Bathe Self (QC): 3 Upper Body Dressing (QC): 5 Lower Body Dressing (QC): 3 On/Off Footwear (QC): 3 Additional Goals: 1-Demonstrate ADL Tasks, 2-Verbalize Understanding, 3- ImproveStrength/Yuriy 1=Demonstrate adherence to instructed precautions during ADL tasks. 2=Patient will verbalize/demonstrate understanding of assistive devices/modifications for ADL. 3=Patient will improve strength/tolerance for activity to enable patient to perform ADL's. OT Education/Plan Problem List/Assessment Assessment: Decreased Activ Tolerance, Decreased Safety Aware, Decreased UE Strength, Dependent Transfers, Impaired Bed Mobility, Impaired Cognition, Impaired Coordination, Impaired Funct Balance, Impaired I ADL's, Impaired Self- Care Skills, Restricted Funct UE ROM, Visual-Perceptual Deficit Discharge Recommendations Plan/Recommendations: Continue POC Treatment Plan/Plan of Care Patient would benefit from OT for education, treatment and training to promote independence in ADL's, mobility, safety and/or upper extremity function for ADL's. Plan of Care: ADL Retraining, Caregiver Training, Cognitive Retraining, Concurrent Therapy, Functional Mobility, Group Exercise/Act as Ind, Orthotic Fitting/Training, UE Funct Exercise/Act, UE Neuromus Re-Ed/Coord, W/C Management Training Treatment Duration: Apr 12, 2020 Frequency: At least 5 of 7 days/Wk (IRF) Estimated Hrs Per Day: 1.5 hours per day Agreement: Yes Rehab Potential: Guarded Time/GCodes Start Time: 09:00 ([id number]) Stop Time: 11:45 ([id number]) Total Time Billed (hr/min): 75 Billed Treatment Time 1 visit-ADL (10 min) FA 2 (30 min) NM 1 (20 min) co-treat with PT [id number], 1 visit ADL 1 (15 min)-([id number]) MARKUS QUIGLEY Apr 01, 2020 11:59
--- NOTE | 2020-04-01 13:07 | Progress Note - Cardiology ---
Cardiology SOAP Progress Note Subjective: No cp or palp or syncope or shortness of breath No n/v/d Objective: I&O/Vital Signs 04/01/20 04/01/20 05:23 09:00 Temp 36.6 Pulse 63 Resp 20 B/P (MAP) 118/78 (91) Pulse Ox 94 O2 Delivery Room Air Room Air 04/01/20 00:00 Intake Total 900 ml Balance 900 ml Weight (Pounds): 170 Weight (Ounces): 0 Weight (Calculated Kilograms): 77.873003 Constitutional: No AAO x 3; well-developed, other (Oriented to self) Respiratory: No accessory muscle use, No respiratory distress; chest expansion is symmetric, chest is bilaterally symmetric, lungs clear to auscultation Cardiovascular: regular rate-rhythm; No JVD; S1 and S2 Gastrointestional: No tender; soft, round, audible bowel sounds Extremities: no lower extremity edema bilateral Neurologic/Psychiatric: No oriented x 3; other (left upper and lower extremity weakness, LUE 3/5, LLE 4/5) Skin: No rash on exposed areas, No ulcerations on exposed areas Results/Procedures: Labs Laboratory Tests 03/31/20 16:10: Glucometer 116H 03/31/20 20:57: Glucometer 148H 04/01/20 06:10: White Blood Count 8.4, Red Blood Count 3.10L, Hemoglobin 11.8, Hematocrit 34L, Mean Corpuscular Volume 109H, Mean Corpuscular Hemoglobin 38H, Mean Corpuscular Hemoglobin Concent 35, Red Cell Distribution Width 13.2, Platelet Count 287, Mean Platelet Volume 11.4, Immature Granulocyte % (Auto) 0, Neutrophils (%) (Auto) 42, Lymphocytes (%) (Auto) 38, Monocytes (%) (Auto) 12, Eosinophils (%) (Auto) 6, Basophils (%) (Auto) 1, Neutrophils # (Auto) 3.5, Lymphocytes # (Auto) 3.2, Monocytes # (Auto) 1.0, Eosinophils # (Auto) 0.5H, Basophils # (Auto) 0.1, Immature Granulocyte # (Auto) 0.0, Sodium Level 137, Potassium Level 3.9, Chloride Level 104, Carbon Dioxide Level 22, Anion Gap 11, Blood Urea Nitrogen 14, Creatinine 0.80, Estimat Glomerular Filtration Rate > 60, BUN/Creatinine Ratio 18, Glucose Level 138H, Calcium Level 9.0, Corrected Calcium 9.3, Total Bilirubin 0.8, Aspartate Amino Transf (AST/SGOT) 49H, Alanine Aminotransferase (ALT/SGPT) 34, Alkaline Phosphatase 69, Total Protein 7.0, Albumin 3.6 04/01/20 06:19: Glucometer 125H 04/01/20 10:52: Glucometer 197H Laboratory Tests 04/01/20 06:10 A/P: Assessment: 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 Mac Continue OAC with Eliquis Monitor from time to time RUDOLPH MELO MD FACP [facility] Apr 01, 2020 13:07
--- NOTE | 2020-04-01 14:52 | Physical Therapy Daily Note ---
PT Daily Note-Current Subjective Pt presents sitting in recliner. Pt agrees to PT. Pt reports no pain. Appearance At conclusion of PT treatment pt remains in recliner. Pt has access to tray, call button, and all needs have been met. Chair alarm on. Mental Status Patient Orientation: Person, Confused, Eyes Open Transfers SCALE: Activities may be completed with or without assistive devices. 5-Okjbffygdn-uqdrtlw completes the activity by him/herself with no assistance from a helper. 5-Set-up or Clean-up Assistance-helper sets up or cleans up; patient completes activity. [place] assists only prior to or following the activity. 4-Supervision or Touching Assistance-helper provides verbal cues and/or touching/steadying and/or contact guard assistance as patient completes activity. Assistance may be provided throughout the activity or intermittently. 3-Partial/Moderate Assistance-helper does LESS THAN HALF the effort. [place] lifts, holds or supports trunk or limbs, but provides less than half the effort. 2-Substantial/Maximal Assistance-helper does MORE THAN HALF the effort. [place] lifts or holds trunk or limbs and provides more than half the effort. 3-Mzohbbwyh-ectrlu does ALL the effort. Patient does none of the effort to complete the activity. Or, the assistance of 2 or more helpers is required for the patient to complete the activity. If activity was not attempted, code reason: 7-Patient Refused. 9-Not Applicable-not attempted and the patient did not perform the activity before the current illness, exacerbation or injury. 10-Not Attempted due to Environmental Limitations-(lack of equipment, weather restraints, etc.). 88-Not Attempted due to Medical Conditions or Safety Concerns. Weight Bearing Full Weight Bearing Full Weight Bearing Exercises Supine Ex: Ankle pumps, Glut sets, Straight leg raise Supine Reps: 20 Treatments LE strengthening Assessment Current Status: Fair Progress Pt struggles to stay focused on exercises instructed. Pt unable to keep knees straight during SLRs. Pt is confused as to where she is, she believes and a dog have been present in room. PT Short Term Goals Short Term Goals Time Frame: Apr 05, 2020 Roll Left & Right: 3 Sit to lyin Lying to sitting on side of be: 3 Sit to stand: 3 Chair/dpn-ld-wtgvu transfer: 3 Walk 10 feet: 3 PT Shelter Goals Shelter Goals PT Director Of Strategic Marketing Goals Time Frame: Apr 19, 2020 Roll Left & Right (QC): 3 (Emily) Sit to Lying (QC): 3 (Emily) Lying-Sitting on Side/Bed(QC): 3 Sit to Stand (QC): 3 (Emily) Chair/Opq-ro-Kvkpm Xfer(QC): 3 (Emily) Toilet Transfer (QC): 3 (Emily) Car Transfer (QC): 3 (Emily) Does the Patient Walk: Yes Walk 10 feet (QC): 3 (Emily) Walk 50ft with 2 Turns (QC): 88 Walk 150 ft (QC): 88 Walking 10ft on Uneven Surface: 88 1 Step (curb) (QC): 88 4 Steps (QC): 88 12 Steps (QC): 88 Picking up an Object (QC): 88 Wheel 50 feet with 2 turns (QC: 3 Wheel 150 feet: 3 PT Plan Problem List Problem List: Activity Tolerance, Functional Strength, Safety, Balance, Gait, Transfer, Bed Mobility, ROM Treatment/Plan Treatment Plan: Continue Plan of Care Treatment Plan: Bed Mobility, Education, Functional Activity Yuriy, Functional Strength, Group Therapy, Gait, Safety, Therapeutic Exercise, Transfers Treatment Duration: Apr 19, 2020 Frequency: At least 5 of 7 days/Wk (IRF) Estimated Hrs Per Day: 1.5 hours per day Patient and/or Family Agrees t: Yes Safety Risks/Education Patient Education: Correct Positioning, Safety Issues Teaching Recipient: Patient Teaching Methods: Demonstration, Discussion Response to Teaching: Reinforcement Needed Time/GCodes Time In: 1300 Time Out: 1315 Total Billed Treatment Time: 15 Total Billed Treatment 1 visit EX CONCEPCIÓN GUERRA PT Apr 01, 2020 14:52
[2020-04-01 16:10] VITALS: BP 91/53
[2020-04-02 05:07] VITALS: BP 131/60
[2020-04-02] MEDS: inSUlin ASPART (NovoLOG) 1 UNIT/0.01 ML (CHARGE PER UNIT) SC SCH ×4 (05:10→20:57)
[2020-04-02] MEDS: CYANOCOBALAMIN 1,000 MCG (VITAMIN B-12) TABLET PO SCH (05:41)
[2020-04-02] MEDS: MULTIVIT W/MINERALS TAB (THERAGRAN M) PO SCH (05:41)
[2020-04-02] MEDS: LOSARTAN 25 MG (COZAAR) TAB PO SCH (08:12)
[2020-04-02] MEDS: polyethylene glycoL POWDER 17 GM (MIRALAX) PACK PO SCH ×2 (08:12→20:28)
[2020-04-02] MEDS: APIXABAN 5 MG (ELIQUIS) TABLET PO SCH ×2 (08:12→20:28)
[2020-04-02] MEDS: SENNA W/DOCUSATE (SENOKOT S) TABLET PO SCH ×2 (08:12→20:28)
--- NOTE | 2020-04-02 08:38 | PM&R Progress Note ---
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 helper Will work on disposition Has no complaints 04/01/20: Bowels moved 4x yesterday after complete evacuation No pain is reported Labs are okay 03/31/20: Monitoring BP No bleed issues from OAC AF rate controlled BM x 4 after suppository Delusions at times 03/30/20: Doing well Leans to the left Suppository will be required since no BM for several days No changes otherwise Patient settled in to IRF Baseline dementia and labile changes to behaviors is at baseline No pain reported SLUMS cannot be performed due to severity of dementia Left sided weakness is profound No falls Checked meds and labs Conferred with RN Reviewed therapy notes Review of Systems General: Fatigue, Malaise Neurological: Weakness Objective Exam Vital Signs Vital Signs Date Time Temp Pulse Resp B/P (MAP) Pulse Ox O2 Delivery O2 Flow Rate FiO2 04/03/20 05:40 37.2 71 16 107/53 (71) 95 Room Air Capillary Refill : Less Than 3 Seconds General Appearance: No Apparent Distress, WD/WN, Chronically ill HEENT: PERRL/EOMI, Normal ENT Inspection, Pharynx Normal Neck: Full Range of Motion, Normal Inspection, Non Tender, Supple, Carotid Bruit Respiratory: Chest Non Tender, Lungs Clear, Normal Breath Sounds, No Accessory Muscle Use, No Respiratory Distress Cardiovascular: No Edema, No Gallop, No JVD, No Murmur, Normal Peripheral Pulses, Irregularly Irregular Gastrointestinal: Normal Bowel Sounds, No Organomegaly, No Pulsatile Mass, Non Tender, Soft Back: Normal Inspection, No CVA Tenderness, No Vertebral Tenderness Extremity: Normal Capillary Refill, Normal Inspection, Normal Range of Motion, Non Tender, No Calf Tenderness, No Pedal Edema Neurologic/Psychiatric: Alert, No Motor/Sensory Deficits, Normal Mood/Affect, rivet sticker II-XII Norm as Tested, Abnormal Gait, Disoriented, Facial Droop (left), Motor Weakness (left sided partial flaccidity) Skin: Normal Color, Warm/Dry Lymphatic: No Adenopathy Results/Procedures Lab Patient resulted labs reviewed. FIM Transfers Therapy Code Descriptions/Definitions Functional [place] Measure: 0=Not Assessed/NA 4=Minimal Assistance 1=Total Assistance 5=Supervision or Setup 2=Maximal Assistance 6=Modified [place] 3=Moderate Assistance 7=Complete IndependenceSCALE: Activities may be completed with or without assistive devices. 0-Rmmqsqateb-lhorhuc completes the activity by him/herself with no assistance from a helper. 5-Set-up or Clean-up Assistance-helper sets up or cleans up; patient completes activity. [place] assists only prior to or following the activity. 4-Supervision or Touching Assistance-helper provides verbal cues and/or touching/steadying and/or contact guard assistance as patient completes activity. Assistance may be provided throughout the activity or intermittently. 3-Partial/Moderate Assistance-helper does LESS THAN HALF the effort. [place] lifts, holds or supports trunk or limbs, but provides less than half the effort. 2-Substantial/Maximal Assistance-helper does MORE THAN HALF the effort. [place] lifts or holds trunk or limbs and provides more than half the effort. 2-Strvbyauh-hkmfdg does ALL the effort. Patient does none of the effort to complete the activity. Or, the assistance of 2 or more helpers is required for the patient to complete the activity. If activity was not attempted, code reason: 7-Patient Refused. 9-Not Applicable-not attempted and the patient did not perform the activity before the current illness, exacerbation or injury. 10-Not Attempted due to Environmental Limitations-(lack of equipment, weather restraints, etc.). 88-Not Attempted due to Medical Conditions or Safety Concerns. Roll Left to Right (QC): 3 Sit to Lying (QC): 2 Sit to Stand (QC): 2 Chair/Gtp-ea-[place] Xfer(QC): 2 Car Transfer (QC): 88 Gait Training Does the Patient Walk?: No and Walking Goal IS indicated Walk 10 feet (QC): 88 Walk 50 ft with 2 Turns(QC): 88 Walk 150 ft (QC): 88 Walking 10ft/uneven surface-QC: 88 Wheelchair Training Does the Pt Use a Wheelchair?: Yes Distance: 150'x2 Wheel 50 ft with 2 turns (QC): 2 Wheel 150 ft (QC): 1 Type of Wheelchair: Manual Stair Training 1 Step (curb) (QC): 88 4 Steps (QC): 88 12 Steps (QC): 88 Balance Picking up an Object (QC): 88 ADL-Treatment Eating (QC): 3 (min A- pt requires assist bringing cup to mouth; cutting tasks will require assist.) Oral Hygiene (QC): 4 Shower/Bathe Self (QC): 3 (mod A for BLE feet/ calves. Pt able to wash all areas with moderate cues for initiation of task/ cues for thoroughness. Pt completes bottom hygiene post-rolling (cues for roll). Pt utilizes L UE to wash R side without cues this date.) Upper Body Dressing (QC): 2 Lower Body Dressing (QC): 1 On/Off Footwear (QC): 2 (Pt able to lift B LE for AVILES to don.) Toileting Hygiene (QC): 3 (Pt completes dutch hygiene and bottom hygiene during roll in bed. Pt able to reach all areas with min physical A for thoroughness.) Assessment/Plan Assessment and Plan Assess & Plan/Chief Complaint Assessment: 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 02/21/20 transferred to New onset AF OAC DM HTN COPD Dementia Confusion at baseline Vit B12 deficiency Left sided weakness h/o UTI Plan: IRF protocol OAC Cardiology consultation Monitor closely 03/29/20: OAC Monitor AF Dementia at baseline 03/30/20: BM regimen Monitor left sided weakness 03/31/20: Monitor delusions Monitor BP 04/01/20: Bowels moved plenty yesterday hold laxatives Monitor blood pressure 04/02/20: Continue intensive therapy Dementia is severe (1) Acute ischemic right MCA stroke Status: Acute (2) Atrial fibrillation (3) History of UTI (4) Dementia (5) Left-sided weakness (6) COPD (chronic obstructive pulmonary disease) (7) B12 deficiency (8) Altered mental status Status: Acute (9) Diabetes mellitus (10) Hypertension KULDEEP PAYNE DO Apr 02, 2020 08:38
--- NOTE | 2020-04-02 08:41 | Speech Therapy Daily Note ---
Speech Daily Progress Note Subjective Date Seen by Provider: Apr 02, 2020 Time Seen by Provider: 00:30 Patient had just finished eating her breakfast when I entered her room. Her nurse was present giving meds. Objective Patient completed a series of "what's wrong with this picture?" referring to unsafe scenarios with 75% given moderate verbal and visual cues. Assessment Assessment Current Status: Fair Progress Treatment Plan Continue Plan of Care Speech Short Term Goals Short Term Goals Short Term Goals 1) Patient will complete memory tasks at 75% or greater. 2) Patient will complete safety awareness tasks at 75% or greater. 3) Patient will complete problem solving tasks at 75% or greater. Speech Mcfp Goals International Relations Professor Goals Patient will improve cognitive-communication necessary for safety and daily living tasks with minimal assist. Speech-Plan Patient/Family Goals Patient/Family Goals: Patient plans on returning to her home where she lives with her . Treatment Plan Speech Therapy Treatment Plan: Continue Plan of Care Treatment Duration: Apr 10, 2020 Frequency: 4 times per week (Patient will receive skilled ST 4-5x per week) Estimated Hrs Per Day: .5 hour per day Rehab Potential: Guarded Barriers to Learning: Patient's ALzheimers, recent CVA Pt/Family Agrees to Plan: Yes Safety Risks/Education Teaching Recipient: Patient Teaching Methods: Demonstration, Discussion Response to Teaching: Verbalize Understanding, Return Demonstration, Reinforcement Needed Education Topics Provided: Continued safety while on the ARU, communication of wants/needs Time Speech Therapy Time In: 08:00 Speech Therapy Time Out: 08:30 Total Billed Time: 30 Billed Treatment Time 1, LORIN Quintanilla Apr 02, 2020 08:41
--- NOTE | 2020-04-02 10:42 | Physical Therapy Daily Note ---
PT Daily Note-Current Subjective Pt presents laying supine in bed. Pt agrees to PT. Pt reports no pain. Appearance At conclusion of PT treatment patient is returned to bed and left under the supervision of OT. Mental Status Patient Orientation: Person, Confused, Eyes Open Transfers SCALE: Activities may be completed with or without assistive devices. 3-Jqtqydvhou-qgkoqly completes the activity by him/herself with no assistance from a helper. 5-Set-up or Clean-up Assistance-helper sets up or cleans up; patient completes activity. [place] assists only prior to or following the activity. 4-Supervision or Touching Assistance-helper provides verbal cues and/or touching/steadying and/or contact guard assistance as patient completes activity. Assistance may be provided throughout the activity or intermittently. 3-Partial/Moderate Assistance-helper does LESS THAN HALF the effort. [place] lifts, holds or supports trunk or limbs, but provides less than half the effort. 2-Substantial/Maximal Assistance-helper does MORE THAN HALF the effort. [place] lifts or holds trunk or limbs and provides more than half the effort. 9-Bjhcnzhqf-ovpqva does ALL the effort. Patient does none of the effort to complete the activity. Or, the assistance of 2 or more helpers is required for the patient to complete the activity. If activity was not attempted, code reason: 7-Patient Refused. 9-Not Applicable-not attempted and the patient did not perform the activity before the current illness, exacerbation or injury. 10-Not Attempted due to Environmental Limitations-(lack of equipment, weather restraints, etc.). 88-Not Attempted due to Medical Conditions or Safety Concerns. Sit to Lying (QC): 2 Lying to Sitting/Side of Bed(Q: 2 Sit to Stand (QC): 2 Chair/Otn-xr-Yxvyx Xfer(QC): 2 Weight Bearing Full Weight Bearing Full Weight Bearing Wheelchair Training Does the Pt Use a Wheelchair?: Yes Wheel 50 ft with 2 turns (QC): 2 Wheel 150 ft (QC): 2 Type of Wheelchair: Manual Pt given smaller wheelchair in which her feet can touch the ground. Pt cued that she can propel herself with LEs; pt is able to follow these commands but not consistently. Exercises Standing: Weight shifts Standing balance in parallel bars. 3x30 sec max assist Treatments Standing balance and wheelchair mobility, bathing, dressing Assessment Current Status: Poor Progress Pt continues to lack focus in order to participate in therapy. Pt has improved her ability to follow cues and assist with standing. Pt limited in her trunk control and has tendency to lean to L. Co-treated with OT due to patient's limitation in mobility, strength, and ability to coordinated UEs and LEs. PT focused on transfers and standing balance while OT focuses on bathing and dressing. PT Short Term Goals Short Term Goals Time Frame: Apr 05, 2020 Roll Left & Right: 3 Sit to lyin Lying to sitting on side of be: 3 Sit to stand: 3 Chair/sxk-zb-lcfzn transfer: 3 Walk 10 feet: 3 PT Mcfp Goals Mcfp Goals PT Powdered Metal Supervisor Goals Time Frame: Apr 19, 2020 Roll Left & Right (QC): 3 (Emily) Sit to Lying (QC): 3 (Emily) Lying-Sitting on Side/Bed(QC): 3 Sit to Stand (QC): 3 (Emily) Chair/Rsj-hb-Hmqrw Xfer(QC): 3 (Emily) Toilet Transfer (QC): 3 (Emily) Car Transfer (QC): 3 (Emily) Does the Patient Walk: Yes Walk 10 feet (QC): 3 (Emily) Walk 50ft with 2 Turns (QC): 88 Walk 150 ft (QC): 88 Walking 10ft on Uneven Surface: 88 1 Step (curb) (QC): 88 4 Steps (QC): 88 12 Steps (QC): 88 Picking up an Object (QC): 88 Wheel 50 feet with 2 turns (QC: 3 Wheel 150 feet: 3 PT Plan Problem List Problem List: Activity Tolerance, Functional Strength, Safety, Balance, Gait, Transfer, Bed Mobility, ROM Treatment/Plan Treatment Plan: Continue Plan of Care Treatment Plan: Bed Mobility, Education, Functional Activity Yuriy, Functional Strength, Group Therapy, Gait, Safety, Therapeutic Exercise, Transfers Treatment Duration: Apr 19, 2020 Frequency: At least 5 of 7 days/Wk (IRF) Estimated Hrs Per Day: 1.5 hours per day Patient and/or Family Agrees t: Yes Safety Risks/Education Patient Education: Transfer Techniques, Correct Positioning, W/C Management, Safety Issues Teaching Recipient: Patient Teaching Methods: Demonstration, Discussion Response to Teaching: Reinforcement Needed Time/GCodes Time In: 0900 Time Out: 1000 Total Billed Treatment Time: 60 Total Billed Treatment 1 visit FA 60' KRTEK,CONCEPCIÓN PT Apr 02, 2020 10:42
--- NOTE | 2020-04-02 11:49 | Occupational Ther Daily Note ---
OT Current Status-Daily Note Subjective Pt alert, lying in bed. Pt agrees to therapy. Pt continues to need redirection and max encouragement to follow directions and use L UE. No c/o pain. Pt only correctly aware of name. Mental Status/Objective Patient Orientation: Person ADL-Treatment Co-treat with PT ([id number]), skills of 2 clinicians required for skilled instruction and care due to pt's dependent mobility, decreased cognition and decreased functional ability. PT working on functional transfers, w/c mobility and sitting balance. OT working on B UE placement during functional transfers and w/c mobility, ADLs and functional sitting balance. Pt blanks out by look down or staring off into space throughout session and requires verbal stimuli to bring back to focus. Pt agrees to shower. Assist x2 for supine to EOB. Assist x2 to transfer from EOB to rolling shower chair. Pt incontinent of bowel on shower chair. Pt transported to large shower room using rolling shower chair. Pt has difficulty maintaining upright sitting balance during shower, assist x2 required. Pt able to wash upper body with cues and lower body with assist to maintain balance. Assist to wash feet, dutch area and buttocks in sitting. Assist to dry body thoroughly. Assist x2 to complete lower body dressing and max A for upper body dressing. Pt stood with max A while rolling shower chair and w/c switched out. Therapy Code Descriptions/Definitions Functional [place] Measure: 0=Not Assessed/NA 4=Minimal Assistance 1=Total Assistance 5=Supervision or Setup 2=Maximal Assistance 6=Modified [place] 3=Moderate Assistance 7=Complete IndependenceSCALE: Activities may be completed with or without assistive devices. 2-Wokeopmygk-kfurzaq completes the activity by him/herself with no assistance from a helper. 5-Set-up or Clean-up Assistance-helper sets up or cleans up; patient completes activity. [place] assists only prior to or following the activity. 4-Supervision or Touching Assistance-helper provides verbal cues and/or touching/steadying and/or contact guard assistance as patient completes acti vity. Assistance may be provided throughout the activity or intermittently. 3-Partial/Moderate Assistance-helper does LESS THAN HALF the effort. [place] lifts, holds or supports trunk or limbs, but provides less than half the effort. 2-Substantial/Maximal Assistance-helper does MORE THAN HALF the effort. [place] lifts or holds trunk or limbs and provides more than half the effort. 3-Gchvpknpj-mnydsn does ALL the effort. Patient does none of the effort to complete the activity. Or, the assistance of 2 or more helpers is required for the patient to complete the activity. If activity was not attempted, code reason: 7-Patient Refused. 9-Not Applicable-not attempted and the patient did not perform the activity before the current illness, exacerbation or injury. 10-Not Attempted due to Environmental Limitations-(lack of equipment, weather restraints, etc.). 88-Not Attempted due to Medical Conditions or Safety Concerns. Shower/Bathe Self (QC): 1 Lower Body Dressing (QC): 1 On/Off Footwear: 2 Other Treatment Pt required max encouragement to attempt to propel w/c to therapy gym. Pt then stood at parallel bars with OT assisting with balance and L UE placement. See PT notes for standing progress. Pt left in care of OT at end of co-treatment session. Pt lying in bed. Individual treatment ([id number]). Assist x2 for bed mobility. Pt required max cues to use L UE when completing ROM arc. Pt using thumb and first finger to pinch rings on ROM to take them L to R. After session, pt sitting up in bed drinking her Coke. Call light/phone in reach. All needs met in room. OT Short Term Goals Short Term Goals Time Frame: Apr 05, 2020 Eatin Oral hygiene: 4 Toileting hygiene: 2 Shower/bathe self: 2 Upper body dressin Lower body dressin Putting on/taking off footwear: 2 OT Snf Goals Snf Goals Time Frame: Apr 12, 2020 Eating (QC): 6 Oral Hygiene (QC): 6 Toileting Hygiene (QC): 3 Shower/Bathe Self (QC): 3 Upper Body Dressing (QC): 5 Lower Body Dressing (QC): 3 On/Off Footwear (QC): 3 Additional Goals: 1-Demonstrate ADL Tasks, 2-Verbalize Understanding, 3- ImproveStrength/Yuriy 1=Demonstrate adherence to instructed precautions during ADL tasks. 2=Patient will verbalize/demonstrate understanding of assistive devices/modifications for ADL. 3=Patient will improve strength/tolerance for activity to enable patient to perform ADL's. OT Education/Plan Problem List/Assessment Assessment: Decreased Activ Tolerance, Decreased Safety Aware, Decreased UE Strength, Dependent Transfers, Impaired Bed Mobility, Impaired Cognition, Impaired Coordination, Impaired Funct Balance, Impaired I ADL's, Impaired Self- Care Skills, Restricted Funct UE ROM, Visual-Perceptual Deficit Discharge Recommendations Plan/Recommendations: Continue POC Treatment Plan/Plan of Care Patient would benefit from OT for education, treatment and training to promote independence in ADL's, mobility, safety and/or upper extremity function for ADL's. Plan of Care: ADL Retraining, Caregiver Training, Cognitive Retraining, Concurrent Therapy, Functional Mobility, Group Exercise/Act as Ind, Orthotic Fitting/Training, UE Funct Exercise/Act, UE Neuromus Re-Ed/Coord, W/C Management Training Treatment Duration: Apr 12, 2020 Frequency: At least 5 of 7 days/Wk (IRF) Estimated Hrs Per Day: 1.5 hours per day Agreement: Yes Rehab Potential: Guarded Time/GCodes Start Time: 09:00 Stop Time: 10:15 Total Time Billed (hr/min): 75 Billed Treatment Time 1 visit-ADL 3 (45 min) NM 2 (30 min) co-treat [id number] and individual 1000- 1015 MARKUS QUIGLEY Apr 02, 2020 11:49
--- NOTE | 2020-04-02 12:32 | Progress Note - Cardiology ---
Cardiology SOAP Progress Note Subjective: No cp or palp or syncope or shortness of breath No n/v/d Objective: I&O/Vital Signs 04/02/20 04/02/20 05:07 09:00 Temp 36.4 Pulse 62 Resp 18 B/P (MAP) 131/60 (83) Pulse Ox 97 O2 Delivery Room Air Room Air 04/02/20 00:00 Intake Total 540 ml Balance 540 ml Weight (Pounds): 170 Weight (Ounces): 0 Weight (Calculated Kilograms): 77.285889 Constitutional: No AAO x 3; well-developed, other (Oriented to self) Respiratory: No accessory muscle use, No respiratory distress; chest expansion is symmetric, chest is bilaterally symmetric, lungs clear to auscultation Cardiovascular: regular rate-rhythm; No JVD; S1 and S2 Gastrointestional: No tender; soft, round, audible bowel sounds Extremities: no lower extremity edema bilateral Neurologic/Psychiatric: No oriented x 3; other (left upper and lower extremity weakness, LUE 3/5, LLE 4/5) Skin: No rash on exposed areas, No ulcerations on exposed areas Results/Procedures: Labs Laboratory Tests 04/01/20 15:33: Glucometer 137H 04/01/20 20:01: Glucometer 156H 04/02/20 05:10: Glucometer 129H 04/02/20 10:54: Glucometer 189H A/P: Assessment: 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 records Reported h/o PAF OAC with Eliquis (started following CVA) MPI of November 2016 showed LVEF 63% no signif ischemia or infarction Echo of November 2016 showed LVEF 60-65% COPD DM 2 HLD CKD 2 Alzheimers PTSD Plan: Management of CVA is with rehab services - Dr. Mac Continue OAC with Eliquis Monitor from time to time RUDOLPH MELO MD FACP [facility] Apr 02, 2020 12:32
--- NOTE | 2020-04-02 13:18 | Physical Therapy Daily Note ---
PT Daily Note-Current Subjective Pt presents laying supine in bed. Pt agrees to PT. Pt reports no pain. Appearance At conclusion of PT treatment pt remains in bed where she has access to tray, call button, and all needs have been met. Mental Status Patient Orientation: Person, Confused Transfers SCALE: Activities may be completed with or without assistive devices. 9-Rjxnmxjgns-fwrzpku completes the activity by him/herself with no assistance from a helper. 5-Set-up or Clean-up Assistance-helper sets up or cleans up; patient completes activity. [place] assists only prior to or following the activity. 4-Supervision or Touching Assistance-helper provides verbal cues and/or touching/steadying and/or contact guard assistance as patient completes activity. Assistance may be provided throughout the activity or intermittently. 3-Partial/Moderate Assistance-helper does LESS THAN HALF the effort. [place] lifts, holds or supports trunk or limbs, but provides less than half the effort. 2-Substantial/Maximal Assistance-helper does MORE THAN HALF the effort. [place] lifts or holds trunk or limbs and provides more than half the effort. 7-Qfepulrdj-ezjedh does ALL the effort. Patient does none of the effort to complete the activity. Or, the assistance of 2 or more helpers is required for the patient to complete the activity. If activity was not attempted, code reason: 7-Patient Refused. 9-Not Applicable-not attempted and the patient did not perform the activity before the current illness, exacerbation or injury. 10-Not Attempted due to Environmental Limitations-(lack of equipment, weather restraints, etc.). 88-Not Attempted due to Medical Conditions or Safety Concerns. Weight Bearing Full Weight Bearing Full Weight Bearing Exercises Supine Ex: Ankle pumps, Glut sets, Straight leg raise Supine Reps: 20 Treatments LE strengthening Assessment Current Status: Fair Progress Pt able to remain more focused on therapy with a verbal countdown on exercises; lost pt attention during second half of treatment. Pt able to complete ankle pumps in circular motion. PT Short Term Goals Short Term Goals Time Frame: Apr 05, 2020 Roll Left & Right: 3 Sit to lyin Lying to sitting on side of be: 3 Sit to stand: 3 Chair/pma-od-kshtl transfer: 3 Walk 10 feet: 3 PT Counter Server Goals Counter Server Goals PT Skilled Nursing Goals Time Frame: Apr 19, 2020 Roll Left & Right (QC): 3 (Emily) Sit to Lying (QC): 3 (Emily) Lying-Sitting on Side/Bed(QC): 3 Sit to Stand (QC): 3 (Emily) Chair/Zof-xg-Cubqm Xfer(QC): 3 (Emily) Toilet Transfer (QC): 3 (Emily) Car Transfer (QC): 3 (Emily) Does the Patient Walk: Yes Walk 10 feet (QC): 3 (Emily) Walk 50ft with 2 Turns (QC): 88 Walk 150 ft (QC): 88 Walking 10ft on Uneven Surface: 88 1 Step (curb) (QC): 88 4 Steps (QC): 88 12 Steps (QC): 88 Picking up an Object (QC): 88 Wheel 50 feet with 2 turns (QC: 3 Wheel 150 feet: 3 PT Plan Problem List Problem List: Activity Tolerance, Functional Strength, Safety, Balance, Gait, Transfer, Bed Mobility, ROM Treatment/Plan Treatment Plan: Continue Plan of Care Treatment Plan: Bed Mobility, Education, Functional Activity Yuriy, Functional Strength, Group Therapy, Gait, Safety, Therapeutic Exercise, Transfers Treatment Duration: Apr 19, 2020 Frequency: At least 5 of 7 days/Wk (IRF) Estimated Hrs Per Day: 1.5 hours per day Patient and/or Family Agrees t: Yes Safety Risks/Education Patient Education: Correct Positioning, Safety Issues Teaching Recipient: Patient Teaching Methods: Demonstration, Discussion Response to Teaching: Reinforcement Needed Time/GCodes Time In: 1300 Time Out: 1315 Total Billed Treatment Time: 15 Total Billed Treatment 1 visit EX CONCEPCIÓN GUERRA PT Apr 02, 2020 13:18
[2020-04-02 16:00] VITALS: BP 121/58
[2020-04-03 05:40] VITALS: BP 107/53
[2020-04-03] MEDS: inSUlin ASPART (NovoLOG) 1 UNIT/0.01 ML (CHARGE PER UNIT) SC SCH ×4 (05:57→21:17)
--- NOTE | 2020-04-03 06:24 | PM&R Progress Note ---
Subjective HPI/CC On Admission Date Seen by Provider: Apr 03, 2020 Time Seen by Provider: 09:00 Subjective/Events-last exam 04/03/20: Bowels were moving earlier today May need a suppository if they are not evacuating Holding Cozaar due to mild low BP Overall doing pretty well but dementia is significant 04/02/20: Pt doing pretty well Dementia precludes anything but a poor prognosis detention Will work on disposition Has no complaints 04/01/20: Bowels moved 4x yesterday after complete evacuation No pain is reported Labs are okay 03/31/20: Monitoring BP No bleed issues from OAC AF rate controlled BM x 4 after suppository Delusions at times 03/30/20: Doing well Leans to the left Suppository will be required since no BM for several days No changes otherwise Patient settled in to IRF Baseline dementia and labile changes to behaviors is at baseline No pain reported SLUMS cannot be performed due to severity of dementia Left sided weakness is profound No falls Checked meds and labs Conferred with RN Reviewed therapy notes Review of Systems General: Fatigue, Malaise Neurological: Weakness Objective Exam Vital Signs Vital Signs Date Time Temp Pulse Resp B/P (MAP) Pulse Ox O2 Delivery O2 Flow Rate FiO2 04/03/20 16:22 37.2 72 18 122/60 (80) 98 Room Air Capillary Refill : Less Than 3 Seconds General Appearance: No Apparent Distress, WD/WN, Chronically ill HEENT: PERRL/EOMI, Normal ENT Inspection, Pharynx Normal Neck: Full Range of Motion, Normal Inspection, Non Tender, Supple, Carotid B ruit Respiratory: Chest Non Tender, Lungs Clear, Normal Breath Sounds, No Accessory Muscle Use, No Respiratory Distress Cardiovascular: No Edema, No Gallop, No JVD, No Murmur, Normal Peripheral Pulses, Irregularly Irregular Gastrointestinal: Normal Bowel Sounds, No Organomegaly, No Pulsatile Mass, Non Tender, Soft Back: Normal Inspection, No CVA Tenderness, No Vertebral Tenderness Extremity: Normal Capillary Refill, Normal Inspection, Normal Range of Motion, Non Tender, No Calf Tenderness, No Pedal Edema Neurologic/Psychiatric: Alert, No Motor/Sensory Deficits, Normal Mood/Affect, lopper II-XII Norm as Tested, Abnormal Gait, Disoriented, Facial Droop (left), Motor Weakness (left sided partial flaccidity) Skin: Normal Color, Warm/Dry Lymphatic: No Adenopathy Results/Procedures Lab Patient resulted labs reviewed. FIM Transfers Therapy Code Descriptions/Definitions Functional [place] Measure: 0=Not Assessed/NA 4=Minimal Assistance 1=Total Assistance 5=Supervision or Setup 2=Maximal Assistance 6=Modified [place] 3=Moderate Assistance 7=Complete IndependenceSCALE: Activities may be completed with or without assistive devices. 0-Njvtlqiljf-boosazv completes the activity by him/herself with no assistance from a helper. 5-Set-up or Clean-up Assistance-helper sets up or cleans up; patient completes activity. [place] assists only prior to or following the activity. 4-Supervision or Touching Assistance-helper provides verbal cues and/or touching/steadying and/or contact guard assistance as patient completes activity. Assistance may be provided throughout the activity or intermittently. 3-Partial/Moderate Assistance-helper does LESS THAN HALF the effort. [place] lifts, holds or supports trunk or limbs, but provides less than half the effort. 2-Substantial/Maximal Assistance-helper does MORE THAN HALF the effort. [place] lifts or holds trunk or limbs and provides more than half the effort. 0-Bpmbauyjp-qxkchz does ALL the effort. Patient does none of the effort to complete the activity. Or, the assistance of 2 or more helpers is required for the patient to complete the activity. If activity was not attempted, code reason: 7-Patient Refused. 9-Not Applicable-not attempted and the patient did not perform the activity before the current illness, exacerbation or injury. 10-Not Attempted due to Environmental Limitations-(lack of equipment, weather restraints, etc.). 88-Not Attempted due to Medical Conditions or Safety Concerns. Roll Left to Right (QC): 3 Sit to Lying (QC): 2 Sit to Stand (QC): 2 Chair/Jzu-ua-[place] Xfer(QC): 2 Car Transfer (QC): 88 Gait Training Does the Patient Walk?: No and Walking Goal IS indicated Walk 10 feet (QC): 88 Walk 50 ft with 2 Turns(QC): 88 Walk 150 ft (QC): 88 Walking 10ft/uneven surface-QC: 88 Wheelchair Training Does the Pt Use a Wheelchair?: Yes Distance: 150'x2 Wheel 50 ft with 2 turns (QC): 2 Wheel 150 ft (QC): 2 Type of Wheelchair: Manual Stair Training 1 Step (curb) (QC): 88 4 Steps (QC): 88 12 Steps (QC): 88 Balance Picking up an Object (QC): 88 ADL-Treatment Eating (QC): 3 (min A- pt requires assist bringing cup to mouth; cutting tasks will require assist.) Oral Hygiene (QC): 4 Shower/Bathe Self (QC): 1 Upper Body Dressing (QC): 2 Lower Body Dressing (QC): 1 On/Off Footwear (QC): 2 Toileting Hygiene (QC): 3 (Pt completes dutch hygiene and bottom hygiene during roll in bed. Pt able to reach all areas with min physical A for thoroughness.) Assessment/Plan Assessment and Plan Assess & Plan/Chief Complaint Assessment: 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 02/21/20 transferred to New onset AF OAC DM HTN COPD Dementia Confusion at baseline Vit B12 deficiency Left sided weakness h/o UTI Plan: IRF protocol OAC Cardiology consultation Monitor closely 03/29/20: OAC Monitor AF Dementia at baseline 03/30/20: BM regimen Monitor left sided weakness 03/31/20: Monitor delusions Monitor BP 04/01/20: Bowels moved plenty yesterday hold laxatives Monitor blood pressure 04/02/20: Continue intensive therapy Dementia is severe 04/03/20: Monitor BP IRF protocol (1) Acute ischemic right MCA stroke Status: Acute (2) Atrial fibrillation (3) History of UTI (4) Dementia (5) Left-sided weakness (6) COPD (chronic obstructive pulmonary disease) (7) B12 deficiency (8) Altered mental status Status: Acute (9) Diabetes mellitus (10) Hypertension KULDEEP PAYNE DO Apr 03, 2020 06:24
[2020-04-03] MEDS: polyethylene glycoL POWDER 17 GM (MIRALAX) PACK PO SCH ×2 (07:37→20:14)
[2020-04-03] MEDS: CYANOCOBALAMIN 1,000 MCG (VITAMIN B-12) TABLET PO SCH (07:37)
[2020-04-03] MEDS: LOSARTAN 25 MG (COZAAR) TAB PO SCH (07:37)
[2020-04-03] MEDS: APIXABAN 5 MG (ELIQUIS) TABLET PO SCH ×2 (07:38→20:14)
[2020-04-03] MEDS: SENNA W/DOCUSATE (SENOKOT S) TABLET PO SCH ×2 (07:38→20:14)
[2020-04-03] MEDS: MULTIVIT W/MINERALS TAB (THERAGRAN M) PO SCH (07:38)
--- NOTE | 2020-04-03 10:08 | Physical Therapy Daily Note ---
PT Daily Note-Current Subjective Pt. in recliner, difficult to establish worthy communication lines. Co Rx with OT .Pt. does initially c/o back pain but this c/o was not mentioned later in Rx Mental Status Patient Orientation: Confused Transfers SCALE: Activities may be completed with or without assistive devices. 1-Sgimhgcqxv-cplmtfd completes the activity by him/herself with no assistance from a helper. 5-Set-up or Clean-up Assistance-helper sets up or cleans up; patient completes activity. [place] assists only prior to or following the activity. 4-Supervision or Touching Assistance-helper provides verbal cues and/or touching/steadying and/or contact guard assistance as patient completes activity. Assistance may be provided throughout the activity or intermittently. 3-Partial/Moderate Assistance-helper does LESS THAN HALF the effort. [place] lifts, holds or supports trunk or limbs, but provides less than half the effort. 2-Substantial/Maximal Assistance-helper does MORE THAN HALF the effort. [place] lifts or holds trunk or limbs and provides more than half the effort. 5-Lugotboxl-knxoqb does ALL the effort. Patient does none of the effort to compl ete the activity. Or, the assistance of 2 or more helpers is required for the patient to complete the activity. If activity was not attempted, code reason: 7-Patient Refused. 9-Not Applicable-not attempted and the patient did not perform the activity before the current illness, exacerbation or injury. 10-Not Attempted due to Environmental Limitations-(lack of equipment, weather restraints, etc.). 88-Not Attempted due to Medical Conditions or Safety Concerns. Sit to Stand (QC): 3 Chair/Mqh-ca-Hhdel Xfer(QC): 3 assist of 2 for SPTs and sit to stand Weight Bearing Full Weight Bearing Full Weight Bearing Wheelchair Training Does the Pt Use a Wheelchair?: Yes Type of Wheelchair: Manual 10 ft mod to max assist and instruction Treatments co Rx OT PT secondary to complicated functional situation and pts poor safety and lack of self protection. PT instructing in alignment and balance,OT focusing on UEs and task Assessment Current Status: Poor Progress pt.limited by confusion and lack of awareness for safe movement PT Short Term Goals Short Term Goals Time Frame: Apr 05, 2020 Roll Left & Right: 3 Sit to lyin Lying to sitting on side of be: 3 Sit to stand: 3 Chair/gsj-zc-gcojv transfer: 3 Walk 10 feet: 3 PT Half-Way Goals Engineering Technical Analyst Goals PT Half-Way Goals Time Frame: Apr 19, 2020 Roll Left & Right (QC): 3 (Emily) Sit to Lying (QC): 3 (Emily) Lying-Sitting on Side/Bed(QC): 3 Sit to Stand (QC): 3 (Emily) Chair/Wqf-vx-Gnghb Xfer(QC): 3 (Emily) Toilet Transfer (QC): 3 (Emily) Car Transfer (QC): 3 (Emily) Does the Patient Walk: Yes Walk 10 feet (QC): 3 (Emily) Walk 50ft with 2 Turns (QC): 88 Walk 150 ft (QC): 88 Walking 10ft on Uneven Surface: 88 1 Step (curb) (QC): 88 4 Steps (QC): 88 12 Steps (QC): 88 Picking up an Object (QC): 88 Wheel 50 feet with 2 turns (QC: 3 Wheel 150 feet: 3 PT Plan Treatment/Plan Treatment Plan: Continue Plan of Care Treatment Plan: Bed Mobility, Education, Functional Activity Yuriy, Functional Strength, Group Therapy, Gait, Safety, Therapeutic Exercise, Transfers Treatment Duration: Apr 19, 2020 Frequency: At least 5 of 7 days/Wk (IRF) Estimated Hrs Per Day: 1.5 hours per day Patient and/or Family Agrees t: Yes Safety Risks/Education Patient Education: Transfer Techniques, Correct Positioning, W/C Management, Instructions to Caregiver, Safety Issues Teaching Recipient: Patient Teaching Methods: Demonstration, Discussion Response to Teaching: Unable to Return Demonstration, Unable to Comprehend, Reinforcement Needed Time/GCodes Time In: 900 Time Out: 1000 Total Billed Treatment Time: 60 Total Billed Treatment 1,FA60m co Rx with KAYCE OTERO TRAFFIC INSPECTOR Apr 03, 2020 10:08
--- NOTE | 2020-04-03 10:10 | Cardiology Progress Note ---
Subjective Date Seen by Provider: Apr 03, 2020 Time Seen by Provider: 16:00 Subjective/Events-last exam Patient is sitting up in chair, denies any chest pain, dyspnea, dizziness or lightheadedness. Review of Systems General: Fatigue, Other HEENT: No Head Aches, No Visual Changes, No Eye Pain, No Ear Pain, No Dysphasia, No Sinus Congestion, No Post Nasal Drip, No Sore Throat, No Other Pulmonary: No Dyspnea, No Cough, No Pleuritic Chest Pain, No Other Cardiovascular: No: Chest Pain, Palpitations, Orthopnea, Paroxysmal Noc. Dyspnea, Edema, Lt Headedness, Other Objective-Cardiology Exam Last Set of Vital Signs Vital Signs 04/03/20 04/03/20 05:40 09:00 Temp 37.2 Pulse 71 Resp 16 B/P (MAP) 107/53 (71) Pulse Ox 95 O2 Delivery Room Air Capillary Refill : Less Than 3 Seconds I&O Intake and Output 04/03/20 00:00 Intake Total 760 ml Balance 760 ml Intake Oral 760 ml # Voids 7 General: Alert, Cooperative, No Acute Distress HEENT: Atraumatic, PERRLA Neck: Supple, No JVD Lungs: Clear to Auscultation, Normal Air Movement Heart: Regular Rate, Normal S1, Normal S2, No Murmurs Abdomen: Normal Bowel Sounds, Soft, No Tenderness Extremities: No Clubbing, No Cyanosis, No Edema, Normal Pulses Skin: No Rashes, No Significant Lesion Neuro: Normal Speech, Cranial Nerves 3-12 NL Psych/Mental Status: Mental Status NL, Mood NL A/P-Cardiology Admission Diagnosis CVA R ICA thrombus PAF COPD Assessment/Plan 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 Maintained on Eliquis. Reported h/o PAF, continue to monitor. Stress test done November 2016 showed LVEF 63% no signif ischemia or infarction. Echo of November 2016 showed LVEF 60-65% COPD, management per medical services DM 2, management per medical services. HLD, maintained on statin CKD 2, continue to monitor renal function Alzheimers PTSD Patient was seen and evaluated with Brandy, examination performed, management plan was discussed, agree with the current scribed note, I made few changes to the note using Italic font Patient is laying down in bed, confused, denied any active pain Continue to monitor blood pressure, no changes from cardiology standpoint. Clinical Quality Measures DVT/VTE Risk/Contraindication: Risk Factor Score Per Nursin RFS Level Per Nursing on Admit: 4+=Very High BRANDY ROSS Apr 03, 2020 10:10 am JACKIE BHATTI MD Apr 03, 2020 4:23 pm
--- NOTE | 2020-04-03 11:19 | Speech Therapy Daily Note ---
Speech Daily Progress Note Subjective Date Seen by Provider: Apr 03, 2020 Time Seen by Provider: 00:30 Patient was sleeping following her OT and PT when I entered her room. She alerted and participated well with therapy. Objective Patient completed orientation tasks to temporal, visual and tactile in her room at 70% with moderate cues. Assessment Assessment Current Status: Fair Progress Treatment Plan Continue Plan of Care Speech Short Term Goals Short Term Goals Short Term Goals 1) Patient will complete memory tasks at 75% or greater. 2) Patient will complete safety awareness tasks at 75% or greater. 3) Patient will complete problem solving tasks at 75% or greater. Speech Usp Goals Usp Goals Patient will improve cognitive-communication necessary for safety and daily living tasks with minimal assist. Speech-Plan Patient/Family Goals Patient/Family Goals: Patient plans on returning to her home where she lives with her . Treatment Plan Speech Therapy Treatment Plan: Continue Plan of Care Treatment Duration: Apr 10, 2020 Frequency: 4 times per week (Patient will receive skilled ST 4-5x per week) Estimated Hrs Per Day: .5 hour per day Rehab Potential: Guarded Barriers to Learning: Patient has Alzheimer's, recent CVA Pt/Family Agrees to Plan: Yes Safety Risks/Education Teaching Recipient: Patient Teaching Methods: Demonstration, Discussion Response to Teaching: Verbalize Understanding, Return Demonstration, Reinforcement Needed Education Topics Provided: Continued safety within her room, utilization of the call light as needed Time Speech Therapy Time In: 10:30 Speech Therapy Time Out: 11:00 Total Billed Time: 30 Billed Treatment Time 1, LORIN Quintanilla Apr 03, 2020 11:19
--- NOTE | 2020-04-03 14:30 | Physical Therapy Daily Note ---
PT Daily Note-Current Subjective Pt. extremely confused. No subject matter that made any sense Pain Comment: pt. c/o pain in shoulders when asked to reach and pull self up in bed Mental Status Patient Orientation: Confused Transfers SCALE: Activities may be completed with or without assistive devices. 9-Kuniliobqq-xzwyjew completes the activity by him/herself with no assistance from a helper. 5-Set-up or Clean-up Assistance-helper sets up or cleans up; patient completes activity. [place] assists only prior to or following the activity. 4-Supervision or Touching Assistance-helper provides verbal cues and/or touching/steadying and/or contact guard assistance as patient completes activity. Assistance may be provided throughout the activity or intermittently. 3-Partial/Moderate Assistance-helper does LESS THAN HALF the effort. [place] lifts, holds or supports trunk or limbs, but provides less than half the effort. 2-Substantial/Maximal Assistance-helper does MORE THAN HALF the effort. [place] lifts or holds trunk or limbs and provides more than half the effort. 2-Ptuvkfudu-kavqkj does ALL the effort. Patient does none of the effort to complete the activity. Or, the assistance of 2 or more helpers is required for the patient to complete the activity. If activity was not attempted, code reason: 7-Patient Refused. 9-Not Applicable-not attempted and the patient did not perform the activity before the current illness, exacerbation or injury. 10-Not Attempted due to Environmental Limitations-(lack of equipment, weather restraints, etc.). 88-Not Attempted due to Medical Conditions or Safety Concerns. rolling left to right with min assist and instructed hand over hand to reach for rail and use LE etc, pt. required assist to pull up in bed Weight Bearing Full Weight Bearing Full Weight Bearing Exercises Supine Ex: Rolling, Heel Slides, Hip abd/add Supine Reps: 10 Assessment Current Status: Poor Progress PT Short Term Goals Short Term Goals Time Frame: Apr 05, 2020 Roll Left & Right: 3 Sit to lyin Lying to sitting on side of be: 3 Sit to stand: 3 Chair/zbo-cg-hsiqq transfer: 3 Walk 10 feet: 3 PT Electronic Publisher Goals Electronic Publisher Goals PT [facility] Goals Time Frame: Apr 19, 2020 Roll Left & Right (QC): 3 (Emily) Sit to Lying (QC): 3 (Emily) Lying-Sitting on Side/Bed(QC): 3 Sit to Stand (QC): 3 (Emily) Chair/Rer-sw-Vtdiv Xfer(QC): 3 (Emily) Toilet Transfer (QC): 3 (Emily) Car Transfer (QC): 3 (Emily) Does the Patient Walk: Yes Walk 10 feet (QC): 3 (Emily) Walk 50ft with 2 Turns (QC): 88 Walk 150 ft (QC): 88 Walking 10ft on Uneven Surface: 88 1 Step (curb) (QC): 88 4 Steps (QC): 88 12 Steps (QC): 88 Picking up an Object (QC): 88 Wheel 50 feet with 2 turns (QC: 3 Wheel 150 feet: 3 PT Plan Treatment/Plan Treatment Plan: Continue Plan of Care Treatment Plan: Bed Mobility, Education, Functional Activity Yuriy, Functional Strength, Group Therapy, Gait, Safety, Therapeutic Exercise, Transfers Treatment Duration: Apr 19, 2020 Frequency: At least 5 of 7 days/Wk (IRF) Estimated Hrs Per Day: 1.5 hours per day Patient and/or Family Agrees t: Yes Time/GCodes Time In: 1400 Time Out: 1415 Total Billed Treatment Time: 15 Total Billed Treatment 1,FA15m KAYCE GUIDO AIRLINE MECHANIC Apr 03, 2020 14:30
--- NOTE | 2020-04-03 15:31 | NUR ---
CM/SS PATIENT CARE CONFERENCE Patient is unable to meaningfully comprehend Summary, spoke with her Art this p.m. Team agreed to recheck patient next April 10; target discharge relative to patient's overall recovery to maximum level of independence. Patient's grandson, Arash Hunter, age 23, also resides in the home. Art expressed his desire for patient to return there. She was ambulatory prior to the CVA. When asked about utilizing a wheelchair in the home, Art indicated patient could do that and they could probably get her to the bathroom. Recommend family training first of week to assess abilities of all regarding patient at-home performance. DME: Art confirms the following DME. O2, nebulizer, BSC, standard walker, wheelchair, electric wheelchair, skooter. There are ramps at both front and back of house. Continue to coordinate a home discharge unless an alternate plan becomes necessary.
[2020-04-03 16:22] VITALS: BP 122/60
[2020-04-04 05:07] VITALS: BP 109/55
[2020-04-04] MEDS: inSUlin ASPART (NovoLOG) 1 UNIT/0.01 ML (CHARGE PER UNIT) SC SCH ×4 (05:18→20:11)
[2020-04-04] MEDS: CYANOCOBALAMIN 1,000 MCG (VITAMIN B-12) TABLET PO SCH (06:14)
[2020-04-04] MEDS: MULTIVIT W/MINERALS TAB (THERAGRAN M) PO SCH (06:14)
--- NOTE | 2020-04-04 07:46 | Occupational Ther Daily Note ---
OT Current Status-Daily Note Subjective Pt alert, lying in bed. Pt eating breakfast in bed. Pt confused talking about conversations she had last night with family. Pain Numeric Pain Scale: 0-No Pain Appearance Pt does not have sense of where she is and why she is here. Pt talks about speaking to her family that she has just been talking to. Making inappropriate comments during bathing or toileting. Pt will be interacting pleasantly with therapy then will turn angry and refuse to complete any tasks. Mental Status/Objective Patient Orientation: Person, Confused Attachments: IV ADL-Treatment Pt was lying in bed upon arrival. Pt agrees to bed bath with max encouragement. Pt washed face then even would lose focus and would not wash other areas within reach, AVILES assisted with all other bathing. Dependent to don/doff brief, socks and hospital gown. Pt does not have regular clothes available. Pt requires assist x2 for supine to EOB and back. Pt transferred from bed to wheelchair with Mod assist x2. Pt propelled to bathroom to brush teeth. Pt needed verbal cues, Min A on placing tooth paste on tooth brush, finding mouth. Pt requires constant verbal and physical cues to complete w/c mobility, pt propelled to gym with cues to use feet to move wheelchair. Pt was place in stander to work on standing balance and strengthening B LE, while performing peg board activity to work on hand eye coordination, memory retention, manipulation of the fingers. Pt was giving pattern of 5 different color pegs, pt needed cues for motivation and redirection to task while completing 4 of 5 colors within sequence. Pt having difficulty with scanning and being aware of objects on L quadrant. Pt stated she needs to use restroom. Pt was transported via w/c back to room to use BSC. Pt had Mod assist x2 getting on/off commode as well as manipulating clothing, CO TA cleansed buttocks area. Pt requires staff member to make sure pt is safe while sitting on BSC. Pt was transferred back into bed to finish session with PT. Safety measures in place. Therapy Code Descriptions/Definitions Functional [place] Measure: 0=Not Assessed/NA 4=Minimal Assistance 1=Total Assistance 5=Supervision or Setup 2=Maximal Assistance 6=Modified [place] 3=Moderate Assistance 7=Complete IndependenceSCALE: Activities may be completed with or without assistive devices. 8-Juvnbukogr-uxrmfqr completes the activity by him/herself with no assistance from a helper. 5-Set-up or Clean-up Assistance-helper sets up or cleans up; patient completes activity. [place] assists only prior to or following the activity. 4-Supervision or Touching Assistance-helper provides verbal cues and/or touching/steadying and/or contact guard assistance as patient completes activity. Assistance may be provided throughout the activity or intermittently. 3-Partial/Moderate Assistance-helper does LESS THAN HALF the effort. [place] l ifts, holds or supports trunk or limbs, but provides less than half the effort. 2-Substantial/Maximal Assistance-helper does MORE THAN HALF the effort. [place] lifts or holds trunk or limbs and provides more than half the effort. 9-Tomzbltor-nasyqp does ALL the effort. Patient does none of the effort to complete the activity. Or, the assistance of 2 or more helpers is required for t he patient to complete the activity. If activity was not attempted, code reason: 7-Patient Refused. 9-Not Applicable-not attempted and the patient did not perform the activity before the current illness, exacerbation or injury. 10-Not Attempted due to Environmental Limitations-(lack of equipment, weather restraints, etc.). 88-Not Attempted due to Medical Conditions or Safety Concerns. Eating (QC): 5 (After set up and making sure most of meal was on L side, pt able to use regular utensils to eat.) Oral Hygiene (QC): 3 Shower/Bathe Self (QC): 1 Lower Body Dressing (QC): 1 On/Off Footwear: 2 Toileting Hygiene (QC): 1 Toilet Transfer (QC): 1 Other Treatment Co-treatment with PT ([id number]) skills of two clinicians required for skilled instruction and care due to dependent mobility, cognitive status, and increased safety concerns. PT working on mobility, standing and B LE strengthening. OT working on functional mobility, L UE placement during standing and transfers. Confused, unable to follow simple directions. Pt becomes unfocused easily and is difficult to redirect to follow commands or task. Depending on motivation, pt has demonstrated min assist x2 to max assist x2 for transfers. Pt dependent for ADLs. Pt does roll to L side with increased time and minimal verbal cues by self then assist x2 to roll toward R side. Pt is able to assist though inconsistently and difficulty with staying on task. Pt requires assist x2 for all transfer due to inconsistency of movement, impulsivity and decreased cognition. If pt is motivated to stand, pt attempts and will stand for ~2 min and when pt does not want to stand no attempt will be made. Pt requires assist x2 for all mobility (standing, transfers, w/c mobility) due to safety issues and inconsistency. Pt is impulsive and has a significant decrease in safety awareness. OT Short Term Goals Short Term Goals Time Frame: Apr 05, 2020 Eatin Oral hygiene: 4 Toileting hygiene: 2 Shower/bathe self: 2 Upper body dressin Lower body dressin Putting on/taking off footwear: 2 OT Art Framing Manager Goals Art Framing Manager Goals Time Frame: Apr 12, 2020 Eating (QC): 6 Oral Hygiene (QC): 6 Toileting Hygiene (QC): 3 Shower/Bathe Self (QC): 3 Upper Body Dressing (QC): 5 Lower Body Dressing (QC): 3 On/Off Footwear (QC): 3 Additional Goals: 1-Demonstrate ADL Tasks, 2-Verbalize Understanding, 3- ImproveStrength/Yuriy 1=Demonstrate adherence to instructed precautions during ADL tasks. 2=Patient will verbalize/demonstrate understanding of assistive devices/modifications for ADL. 3=Patient will improve strength/tolerance for activity to enable patient to perform ADL's. OT Education/Plan Problem List/Assessment Assessment: Decreased Activ Tolerance, Decreased Safety Aware, Decreased UE Strength, Dependent Transfers, Impaired Bed Mobility, Impaired Cognition, Impaired Coordination, Impaired Funct Balance, Impaired I ADL's, Impaired Self- Care Skills, Restricted Funct UE ROM, Visual-Perceptual Deficit Discharge Recommendations Plan/Recommendations: Continue POC Treatment Plan/Plan of Care Patient would benefit from OT for education, treatment and training to promote independence in ADL's, mobility, safety and/or upper extremity function for ADL's. Plan of Care: ADL Retraining, Caregiver Training, Cognitive Retraining, Concurrent Therapy, Functional Mobility, Group Exercise/Act as Ind, Orthotic Fitting/Training, UE Funct Exercise/Act, UE Neuromus Re-Ed/Coord, W/C Management Training Treatment Duration: Apr 12, 2020 Frequency: At least 5 of 7 days/Wk (IRF) Estimated Hrs Per Day: 1.5 hours per day Agreement: Yes Rehab Potential: Guarded Time/GCodes Start Time: 07:30 Stop Time: 08:45 Total Time Billed (hr/min): 75 Billed Treatment Time 1 visit-ADL 3 (45 min) FA 2 (25 min) EX 1 (10 min) co-treat with PT [id number], individual [id number] MARKUS QUIGLEY Apr 04, 2020 07:46
--- NOTE | 2020-04-04 08:00 | Cardiology Progress Note ---
Subjective Date Seen by Provider: Apr 04, 2020 Time Seen by Provider: 07:59 Subjective/Events-last exam Patient sitting up in chair, no new complaints. Objective-Cardiology Exam Last Set of Vital Signs Vital Signs 04/04/20 04/04/20 05:07 09:19 Temp 37.2 Pulse 78 Resp 16 B/P (MAP) 109/55 (73) Pulse Ox 96 O2 Delivery Room Air Capillary Refill : Less Than 3 Seconds I&O Intake and Output 04/04/20 00:00 Intake Total 1090 ml Balance 1090 ml Intake Oral 1090 ml # Voids 2 # Urine Diapers 4 # Bowel Movements 1 General: Alert, Cooperative, No Acute Distress HEENT: Atraumatic, PERRLA Neck: Supple, No JVD Lungs: Clear to Auscultation, Normal Air Movement Heart: Regular Rate, Normal S1, Normal S2, No Murmurs Abdomen: Normal Bowel Sounds, Soft, No Tenderness Extremities: No Clubbing, No Cyanosis, No Edema, Normal Pulses Skin: No Rashes, No Significant Lesion Neuro: Normal Speech, Cranial Nerves 3-12 NL Psych/Mental Status: Mental Status NL, Mood NL A/P-Cardiology Admission Diagnosis CVA R ICA thrombus PAF COPD Assessment/Plan 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 Maintained on Eliquis. Reported h/o PAF, continue to monitor. Borderline hypotension, losartan discontinued yesterday, continue to montior BP Stress test done November 2016 showed LVEF 63% no signif ischemia or infarction. Echo of November 2016 showed LVEF 60-65% COPD, management per medical services DM 2, management per medical services. HLD, maintained on statin CKD 2, continue to monitor renal function Alzheimers PTSD Patient was seen and evaluated with Brandy, examination performed, management plan was discussed, agree with the current scribed note, I made few changes to the note using Italic font Patient was seen during physical therapy session, has been feeling well. No new complaint Losartan was discontinued, blood pressure is slightly better. Continue to monitor blood pressure No changes otherwise are recommended at this point. Clinical Quality Measures DVT/VTE Risk/Contraindication: Risk Factor Score Per Nursin RFS Level Per Nursing on Admit: 4+=Very High BRANDY ROSS Apr 04, 2020 8:00 am JACKIE BAHTTI MD Apr 04, 2020 10:25 am
[2020-04-04] MEDS: APIXABAN 5 MG (ELIQUIS) TABLET PO SCH ×2 (08:12→20:10)
--- NOTE | 2020-04-04 08:47 | Physical Therapy Daily Note ---
PT Daily Note-Current Subjective Pt presents laying supine in bed with OTs working to change brief. Pt agrees to PT. Pt voices no complaints of pain. PT assists changing brief, patient is sexually inappropriate with OT during the change, PT helps with rolling. Will be co-treating with OT due to poor patient mobility, strength, endurance, safety awareness, left hemiplegia, poor sitting and standing balance, the need to coordinate UE and LE during activity. Appearance Patient in bed post tx with nurse call, phone, tray, bed alarm on. Mental Status Patient Orientation: Person, Confused, Eyes Open Transfers SCALE: Activities may be completed with or without assistive devices. 6-Wwlbrprtfh-frckfkd completes the activity by him/herself with no assistance from a helper. 5-Set-up or Clean-up Assistance-helper sets up or cleans up; patient completes activity. [place] assists only prior to or following the activity. 4-Supervision or Touching Assistance-helper provides verbal cues and/or touching/steadying and/or contact guard assistance as patient completes activity. Assistance may be provided throughout the activity or intermittently. 3-Partial/Moderate Assistance-helper does LESS THAN HALF the effort. [place] lifts, holds or supports trunk or limbs, but provides less than half the effort. 2-Substantial/Maximal Assistance-helper does MORE THAN HALF the effort. [place] lifts or holds trunk or limbs and provides more than half the effort. 5-Vpgveomix-igykor does ALL the effort. Patient does none of the effort to com plete the activity. Or, the assistance of 2 or more helpers is required for the patient to complete the activity. If activity was not attempted, code reason: 7-Patient Refused. 9-Not Applicable-not attempted and the patient did not perform the activity before the current illness, exacerbation or injury. 10-Not Attempted due to Environmental Limitations-(lack of equipment, weather restraints, etc.). 88-Not Attempted due to Medical Conditions or Safety Concerns. Sit to Lying (QC): 1 Lying to Sitting/Side of Bed(Q: 1 Sit to Stand (QC): 1 Chair/Vyu-sq-Mfasm Xfer(QC): 1 Toilet Transfer (QC): 1 Pt requires multiple therapist to assist with each transfer. Pt repeated cued to push off armrest of wheelchair and try to stand; instead pt hugs onto therapist and relies on others to stand and pivot her hips for transfers. Patient was transferred to [facility] at the end of tx, had a small BM, stood with PT while OT cleaned, and then transferred to bed. Standing and transfers have all been dependent during tx but was a light mod assist when going back to bed which patient wanted to do. Patient stood in the standing frame for 12 min in therapy gym while working on OT UE activity while PT worked on positioning and balance. Patient was very agitated during this. Weight Bearing Full Weight Bearing Full Weight Bearing Wheelchair Training Does the Pt Use a Wheelchair?: Yes Wheel 50 ft with 2 turns (QC): 2 Wheel 150 ft (QC): 1 Type of Wheelchair: Manual 150' x2. Pt cued to propel self, if focused pt can do this for approx 3-10' but still requires secondary pushing from therapist to make fwd progression. Exercises Supine Ex: Ankle pumps, Heel Slides, Straight leg raise Supine Reps: 20 (Patient would participate with ankle pumps but HS and SLR were virtually PROM) Sit to stand machine; stood for 12 min while utilitilizing UE for peg board; pt had tendency to lean L side posteriorly and was given tactile cueing to LUE to stand straight. Treatments Transfers and standing Assessment Current Status: Fair Progress Patient is agitated this morning and is angered by therapists and accuses them of being mean to her when asked to complete therapeutic tasks. Patient is entertained by the difficulty placed on PT during stand pivot transfers and laughts at the struggle (she can perform a stand pivot transfer with at least mod assist when she wants to). At this date pt has regressed in her ability to assist with sit to stands and bed to chair transfers. Pt either refuses or is unable to focus on therapy. Patient is progressively worse with agitation and sexual inappropriateness at time goes on. Patient doesn't seem to have any motivation or concern about improving her functional mobility. PT Short Term Goals Short Term Goals Time Frame: Apr 05, 2020 Roll Left & Right: 3 Sit to lyin Lying to sitting on side of be: 3 Sit to stand: 3 Chair/phu-lu-wrttk transfer: 3 Walk 10 feet: 3 PT Real Estate Listing Consultant Goals Real Estate Listing Consultant Goals PT Fdc Goals Time Frame: Apr 19, 2020 Roll Left & Right (QC): 3 (Emily) Sit to Lying (QC): 3 (Emily) Lying-Sitting on Side/Bed(QC): 3 Sit to Stand (QC): 3 (mEily) Chair/Oyv-bg-Fsusg Xfer(QC): 3 (Emily) Toilet Transfer (QC): 3 (Emily) Car Transfer (QC): 3 (Emily) Does the Patient Walk: Yes Walk 10 feet (QC): 3 (Emily) Walk 50ft with 2 Turns (QC): 88 Walk 150 ft (QC): 88 Walking 10ft on Uneven Surface: 88 1 Step (curb) (QC): 88 4 Steps (QC): 88 12 Steps (QC): 88 Picking up an Object (QC): 88 Wheel 50 feet with 2 turns (QC: 3 Wheel 150 feet: 3 PT Plan Problem List Problem List: Activity Tolerance, Functional Strength, Safety, Balance, Gait, Transfer, Bed Mobility, ROM Treatment/Plan Treatment Plan: Continue Plan of Care Treatment Plan: Bed Mobility, Education, Functional Activity Yuriy, Functional Strength, Group Therapy, Gait, Safety, Therapeutic Exercise, Transfers Treatment Duration: Apr 19, 2020 Frequency: At least 5 of 7 days/Wk (IRF) Estimated Hrs Per Day: 1.5 hours per day Patient and/or Family Agrees t: Yes Safety Risks/Education Patient Education: Transfer Techniques, Correct Positioning, W/C Management, Safety Issues Teaching Recipient: Patient Teaching Methods: Demonstration, Discussion Response to Teaching: Reinforcement Needed Time/GCodes Time In: 0800 Time Out: 0900 Total Billed Treatment Time: 60 Total Billed Treatment 1 visit FA 45' EX 15' co-treated with OT for 45'. OT worked on toileting, changing and cleaning, UE activity and safety during standing and mobility, PT worked on bed mobility and transfers, sitting and standing balance, standing, LE exercise. CONCEPCIÓN CARLOS PT Apr 04, 2020 08:47
[2020-04-04] MEDS: SENNA W/DOCUSATE (SENOKOT S) TABLET PO SCH ×2 (09:10→20:10)
[2020-04-04] MEDS: polyethylene glycoL POWDER 17 GM (MIRALAX) PACK PO SCH ×2 (09:10→20:10)
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
--- NOTE | 2020-04-04 13:22 | Physical Therapy Daily Note ---
PT Daily Note-Current Subjective Pt presents laying supine in bed. Pt agrees to PT. Pt reports discomfort in low back. Appearance At conclusion of PT treatment pt remains in bed. Pt has access to tray (with lunch), call button, all needs have been met and bed alarm is on. Mental Status Patient Orientation: Person, Confused, Situation Transfers SCALE: Activities may be completed with or without assistive devices. 0-Pxkopnvkbn-pnrzupf completes the activity by him/herself with no assistance from a helper. 5-Set-up or Clean-up Assistance-helper sets up or cleans up; patient completes activity. [place] assists only prior to or following the activity. 4-Supervision or Touching Assistance-helper provides verbal cues and/or touching/steadying and/or contact guard assistance as patient completes activity. Assistance may be provided throughout the activity or intermittently. 3-Partial/Moderate Assistance-helper does LESS THAN HALF the effort. [place] lifts, holds or supports trunk or limbs, but provides less than half the effort. 2-Substantial/Maximal Assistance-helper does MORE THAN HALF the effort. [place] lifts or holds trunk or limbs and provides more than half the effort. 3-Zvnxbyuua-ultuvv does ALL the effort. Patient does none of the effort to complete the activity. Or, the assistance of 2 or more helpers is required for the patient to complete the activity. If activity was not attempted, code reason: 7-Patient Refused. 9-Not Applicable-not attempted and the patient did not perform the activity before the current illness, exacerbation or injury. 10-Not Attempted due to Environmental Limitations-(lack of equipment, weather restraints, etc.). 88-Not Attempted due to Medical Conditions or Safety Concerns. Weight Bearing Full Weight Bearing Full Weight Bearing Exercises Supine Ex: Ankle pumps, Short Arc Quads, Hip abd/add Supine Reps: 20 Treatments LE strengthening Assessment Current Status: Fair Progress Pt is able to stay focused throughout therapy session. Pt does required continued cueing and counting because pt is forgetful of how to complete exercises and what movement she is doing. PT Short Term Goals Short Term Goals Time Frame: Apr 05, 2020 Roll Left & Right: 3 Sit to lyin Lying to sitting on side of be: 3 Sit to stand: 3 Chair/cml-fj-giaee transfer: 3 Walk 10 feet: 3 PT Fdc Goals Fdc Goals PT Fdc Goals Time Frame: Apr 19, 2020 Roll Left & Right (QC): 3 (Emily) Sit to Lying (QC): 3 (Emily) Lying-Sitting on Side/Bed(QC): 3 Sit to Stand (QC): 3 (Emily) Chair/Ejm-fl-Fmwmm Xfer(QC): 3 (Emily) Toilet Transfer (QC): 3 (Emily) Car Transfer (QC): 3 (Emily) Does the Patient Walk: Yes Walk 10 feet (QC): 3 (Emily) Walk 50ft with 2 Turns (QC): 88 Walk 150 ft (QC): 88 Walking 10ft on Uneven Surface: 88 1 Step (curb) (QC): 88 4 Steps (QC): 88 12 Steps (QC): 88 Picking up an Object (QC): 88 Wheel 50 feet with 2 turns (QC: 3 Wheel 150 feet: 3 PT Plan Problem List Problem List: Activity Tolerance, Functional Strength, Safety, Balance, Gait, Transfer, Bed Mobility, ROM Treatment/Plan Treatment Plan: Continue Plan of Care Treatment Plan: Bed Mobility, Education, Functional Activity Yuriy, Functional Strength, Group Therapy, Gait, Safety, Therapeutic Exercise, Transfers Treatment Duration: Apr 19, 2020 Frequency: At least 5 of 7 days/Wk (IRF) Estimated Hrs Per Day: 1.5 hours per day Patient and/or Family Agrees t: Yes Safety Risks/Education Patient Education: Correct Positioning, Safety Issues Teaching Recipient: Patient Teaching Methods: Demonstration, Discussion Response to Teaching: Reinforcement Needed Time/GCodes Time In: 1300 Time Out: 1315 Total Billed Treatment Time: 15 Total Billed Treatment 1 visit EX CONCEPCIÓN GUERRA PT Apr 04, 2020 13:22
--- NOTE | 2020-04-04 15:04 | Speech Therapy Daily Note ---
Speech Daily Progress Note Subjective Date Seen by Provider: Apr 04, 2020 Time Seen by Provider: 00:30 Patient was resting in her bed watching television and eating her snack when I entered her room. She was confused and thought I was a family member. Objective Patient completed simple q/a related to herself and the past 24 hours with 50% given maximum cues and/or redirection. Assessment Assessment Current Status: Fair Progress Treatment Plan Continue Plan of Care Speech Short Term Goals Short Term Goals Short Term Goals 1) Patient will complete memory tasks at 75% or greater. 2) Patient will complete safety awareness tasks at 75% or greater. 3) Patient will complete problem solving tasks at 75% or greater. Speech Alf Goals Mold Filler Goals Patient will improve cognitive-communication necessary for safety and daily living tasks with minimal assist. Speech-Plan Patient/Family Goals Patient/Family Goals: Patient plans on returning to her home where she lives with her . Treatment Plan Speech Therapy Treatment Plan: Continue Plan of Care Treatment Duration: Apr 10, 2020 Frequency: 4 times per week (Patient will receive skilled ST 4-5x per week) Estimated Hrs Per Day: .5 hour per day Rehab Potential: Guarded Barriers to Learning: Patient's Alzheimer's, recent CVA Pt/Family Agrees to Plan: Yes Safety Risks/Education Teaching Recipient: Patient Teaching Methods: Demonstration, Discussion Response to Teaching: Verbalize Understanding, Return Demonstration, Reinforcement Needed Education Topics Provided: Safety within her room, utilization of call light, clock, white board Time Speech Therapy Time In: 10:30 Speech Therapy Time Out: 11:00 Total Billed Time: 30 Billed Treatment Time 1ABHIJEET BETHAN[address] ST Apr 04, 2020 15:04
[2020-04-04 17:10] VITALS: BP 107/53
[2020-04-05] MEDS: inSUlin ASPART (NovoLOG) 1 UNIT/0.01 ML (CHARGE PER UNIT) SC SCH ×4 (05:45→21:15)
[2020-04-05 06:00] VITALS: BP 147/67
[2020-04-05] MEDS: CYANOCOBALAMIN 1,000 MCG (VITAMIN B-12) TABLET PO SCH (06:08)
[2020-04-05] MEDS: MULTIVIT W/MINERALS TAB (THERAGRAN M) PO SCH (06:08)
--- NOTE | 2020-04-05 07:45 | Occupational Ther Daily Note ---
OT Current Status-Daily Note Subjective Pt dozing in bed. Woke to name. Pt confused unable to state place or situation. No c/o pain only fatigue. Mental Status/Objective Patient Orientation: Person, Confused ADL-Treatment Pt required set up to eat breakfast and to keep pt on task and alert. Pt cleaned face in bed, cleaned perineal area with verbal cues, rolling to L side assist x2 AVILES cleansed buttocks area. Co- treatment with PT ([id number]) skills of two clinicians required for skilled instruction and care due to dependent mobility, cognition, and increase safety concern. Pt required assist x2 from supine to EOB don UE/LE clothing with Max A, verbal cues finding L hand to thread in shirt. Pt transferred to wheelchair with Mod A x2, propelled to gym with verbal cues to use feet. Pt performed balloon activity sitting mat to work on sitting balance, UE ROM, eye and hand coordination. Pt had verbal cues to use L hand, PT helped pt located L hand, guided L to balloon. Pt transferred back to wheelchair Mod A x2, propelled to bars to work on standing tolerance. Pt propelled back to room with verbal cues to use feet. Pt left in care of PT, all needs met. Therapy Code Descriptions/Definitions Functional [place] Measure: 0=Not Assessed/NA 4=Minimal Assistance 1=Total Assistance 5=Supervision or Setup 2=Maximal Assistance 6=Modified [place] 3=Moderate Assistance 7=Complete IndependenceSCALE: Activities may be completed with or without assistive devices. 0-Wibnfdnddu-krkcaxx completes the activity by him/herself with no assistance from a helper. 5-Set-up or Clean-up Assistance-helper sets up or cleans up; patient completes activity. [place] assists only prior to or following the activity. 4-Supervision or Touching Assistance-helper provides verbal cues and/or touching/steadying and/or contact guard assistance as patient completes activity. Assistance may be provided throughout the activity or intermittently. 3-Partial/Moderate Assistance-helper does LESS THAN HALF the effort. [place] lifts, holds or supports trunk or limbs, but provides less than half the effort. 2-Substantial/Maximal Assistance-helper does MORE THAN HALF the effort. [place] lifts or holds trunk or limbs and provides more than half the effort. 4-Wspjgokih-erfoeq does ALL the effort. Patient does none of the effort to complete the activity. Or, the assistance of 2 or more helpers is required for the patient to complete the activity. If activity was not attempted, code reason: 7-Patient Refused. 9-Not Applicable-not attempted and the patient did not perform the activity before the current illness, exacerbation or injury. 10-Not Attempted due to Environmental Limitations-(lack of equipment, weather restraints, etc.). 88-Not Attempted due to Medical Conditions or Safety Concerns. Upper Body Dressing (QC): 2 Lower Body Dressing (QC): 2 Toileting Hygiene (QC): 2 Pt needed Max encouragement to participate in therapy. Multiple redirection to maintain focus on task. OT Short Term Goals Short Term Goals Time Frame: Apr 05, 2020 Eatin Oral hygiene: 4 Toileting hygiene: 2 Shower/bathe self: 2 Upper body dressin Lower body dressin Putting on/taking off footwear: 2 OT Clinical Training Specialist Goals Clinical Training Specialist Goals Time Frame: Apr 12, 2020 Eating (QC): 6 Oral Hygiene (QC): 6 Toileting Hygiene (QC): 3 Shower/Bathe Self (QC): 3 Upper Body Dressing (QC): 5 Lower Body Dressing (QC): 3 On/Off Footwear (QC): 3 Additional Goals: 1-Demonstrate ADL Tasks, 2-Verbalize Understanding, 3- ImproveStrength/Yuriy 1=Demonstrate adherence to instructed precautions during ADL tasks. 2=Patient will verbalize/demonstrate understanding of assistive devices/modif ications for ADL. 3=Patient will improve strength/tolerance for activity to enable patient to perform ADL's. OT Education/Plan Problem List/Assessment Assessment: Decreased Activ Tolerance, Decreased Safety Aware, Decreased UE Strength, Dependent Transfers, Impaired Bed Mobility, Impaired Cognition, Impaired Coordination, Impaired Funct Balance, Impaired I ADL's, Impaired Self- Care Skills, Restricted Funct UE ROM, Visual-Perceptual Deficit Discharge Recommendations Plan/Recommendations: Continue POC Treatment Plan/Plan of Care Patient would benefit from OT for education, treatment and training to promote independence in ADL's, mobility, safety and/or upper extremity function for ADL's. Plan of Care: ADL Retraining, Caregiver Training, Cognitive Retraining, Concu rrent Therapy, Functional Mobility, Group Exercise/Act as Ind, Orthotic Fitting/Training, UE Funct Exercise/Act, UE Neuromus Re-Ed/Coord, W/C Management Training Treatment Duration: Apr 12, 2020 Frequency: At least 5 of 7 days/Wk (IRF) Estimated Hrs Per Day: 1.5 hours per day Agreement: Yes Rehab Potential: Guarded Time/GCodes Start Time: 07:30 Stop Time: 08:45 Total Time Billed (hr/min): 75 Billed Treatment Time 1 visit- 2 ADL (30 mins) ([id number]) , Co- treatment ([id number]) 4 FA (45 mins) MARKUS QUIGLEY Apr 05, 2020 07:45
[2020-04-05] MEDS: SENNA W/DOCUSATE (SENOKOT S) TABLET PO SCH ×2 (08:07→21:09)
[2020-04-05] MEDS: APIXABAN 5 MG (ELIQUIS) TABLET PO SCH ×2 (08:07→21:09)
[2020-04-05] MEDS: polyethylene glycoL POWDER 17 GM (MIRALAX) PACK PO SCH ×2 (08:07→21:09)
--- NOTE | 2020-04-05 10:06 | PM&R Progress Note ---
Subjective HPI/CC On Admission Date Seen by Provider: Apr 05, 2020 Time Seen by Provider: 10:00 Subjective/Events-last exam 04/05/20: Fairly cranky with nurse aid today Blood sugar 122 Overall doing well 04/04/20: Significant dementia continues Overall doing pretty well otherwise Bowels are moving Eating and drinking well No falls 04/03/20: Bowels were moving earlier today May need a suppository if they are not evacuating Holding Cozaar due to mild low BP Overall doing pretty well but dementia is significant 04/02/20: Pt doing pretty well Dementia precludes anything but a poor prognosis fdc Will work on disposition Has no complaints 04/01/20: Bowels moved 4x yesterday after complete evacuation No pain is reported Labs are okay 03/31/20: Monitoring BP No bleed issues from OAC AF rate controlled BM x 4 after suppository Delusions at times 03/30/20: Doing well Leans to the left Suppository will be required since no BM for several days No changes otherwise Patient settled in to IRF Baseline dementia and labile changes to behaviors is at baseline No pain reported SLUMS cannot be performed due to severity of dementia Left sided weakness is profound No falls Checked meds and labs Conferred with RN Reviewed therapy notes Review of Systems General: Fatigue, Malaise Neurological: Weakness, Confusion Objective Exam Vital Signs Vital Signs Date Time Temp Pulse Resp B/P (MAP) Pulse Ox O2 Delivery O2 Flow Rate FiO2 04/05/20 18:00 36.8 72 18 147/67 (93) 94 Room Air Capillary Refill : Less Than 3 Seconds General Appearance: No Apparent Distress, WD/WN, Chronically ill HEENT: PERRL/EOMI, Normal ENT Inspection, Pharynx Normal Neck: Full Range of Motion, Normal Inspection, Non Tender, Supple, Carotid Bruit Respiratory: Chest Non Tender, Lungs Clear, Normal Breath Sounds, No Accessory Muscle Use, No Respiratory Distress Cardiovascular: No Edema, No Gallop, No JVD, No Murmur, Normal Peripheral Pulses, Irregularly Irregular Gastrointestinal: Normal Bowel Sounds, No Organomegaly, No Pulsatile Mass, Non Tender, Soft Back: Normal Inspection, No CVA Tenderness, No Vertebral Tenderness Extremity: Normal Capillary Refill, Normal Inspection, Normal Range of Motion, Non Tender, No Calf Tenderness, No Pedal Edema Neurologic/Psychiatric: Alert, No Motor/Sensory Deficits, Normal Mood/Affect, pattern chart writer II-XII Norm as Tested, Abnormal Gait, Disoriented, Facial Droop (left), Beba r Weakness (left sided partial flaccidity) Skin: Normal Color, Warm/Dry Lymphatic: No Adenopathy Results/Procedures Lab Patient resulted labs reviewed. FIM Transfers Therapy Code Descriptions/Definitions Functional [place] Measure: 0=Not Assessed/NA 4=Minimal Assistance 1=Total Assistance 5=Supervision or Setup 2=Maximal Assistance 6=Modified [place] 3=Moderate Assistance 7=Complete IndependenceSCALE: Activities may be completed with or without assistive devices. 9-Jzuervryur-hsswyvi completes the activity by him/herself with no assistance from a helper. 5-Set-up or Clean-up Assistance-helper sets up or cleans up; patient completes activity. [place] assists only prior to or following the activity. 4-Supervision or Touching Assistance-helper provides verbal cues and/or touching/steadying and/or contact guard assistance as patient completes activity. Assistance may be provided throughout the activity or intermittently. 3-Partial/Moderate Assistance-helper does LESS THAN HALF the effort. [place] lifts, holds or supports trunk or limbs, but provides less than half the effort. 2-Substantial/Maximal Assistance-helper does MORE THAN HALF the effort. [place] lifts or holds trunk or limbs and provides more than half the effort. 9-Conzocbrn-fmclkh does ALL the effort. Patient does none of the effort to complete the activity. Or, the assistance of 2 or more helpers is required for the patient to complete the activity. If activity was not attempted, code reason: 7-Patient Refused. 9-Not Applicable-not attempted and the patient did not perform the activity before the current illness, exacerbation or injury. 10-Not Attempted due to Environmental Limitations-(lack of equipment, weather restraints, etc.). 88-Not Attempted due to Medical Conditions or Safety Concerns. Roll Left to Right (QC): 3 Sit to Lying (QC): 1 Sit to Stand (QC): 1 Chair/Vfk-si-Vzezj Xfer(QC): 1 Car Transfer (QC): 88 Gait Training Does the Patient Walk?: No and Walking Goal IS indicated Walk 10 feet (QC): 88 Walk 50 ft with 2 Turns(QC): 88 Walk 150 ft (QC): 88 Walking 10ft/uneven surface-QC: 88 Wheelchair Training Does the Pt Use a Wheelchair?: Yes Distance: 150'x2 Wheel 50 ft with 2 turns (QC): 2 Wheel 150 ft (QC): 1 Type of Wheelchair: Manual Stair Training 1 Step (curb) (QC): 88 4 Steps (QC): 88 12 Steps (QC): 88 Balance Picking up an Object (QC): 88 ADL-Treatment Eating (QC): 5 (After set up and making sure most of meal was on L side, pt able to use regular utensils to eat.) Oral Hygiene (QC): 3 Shower/Bathe Self (QC): 1 Upper Body Dressing (QC): 2 Lower Body Dressing (QC): 2 On/Off Footwear (QC): 2 Toileting Hygiene (QC): 2 Toilet Transfer (QC): 1 Assessment/Plan Assessment and Plan Assess & Plan/Chief Complaint Assessment: 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 02/21/20 transferred to New onset AF OAC DM HTN COPD Dementia Confusion at baseline Vit B12 deficiency Left sided weakness h/o UTI Plan: IRF protocol OAC Cardiology consultation Monitor closely 03/29/20: OAC Monitor AF Dementia at baseline 03/30/20: BM regimen Monitor left sided weakness 03/31/20: Monitor delusions Monitor BP 04/01/20: Bowels moved plenty yesterday hold laxatives Monitor blood pressure 04/02/20: Continue intensive therapy Dementia is severe 04/03/20: Monitor BP IRF protocol 04/04/20: Monitor for falls Monitor BP 04/05/20: Monitor BP Fall risk Confusion monitoring (1) Acute ischemic right MCA stroke Status: Acute (2) Atrial fibrillation (3) History of UTI (4) Dementia (5) Left-sided weakness (6) COPD (chronic obstructive pulmonary disease) (7) B12 deficiency (8) Altered mental status Status: Acute (9) Diabetes mellitus (10) Hypertension KULDEEP PAYNE DO Apr 05, 2020 10:06
--- NOTE | 2020-04-05 11:00 | Physical Therapy Daily Note ---
PT Daily Note-Current Subjective Pt presents laying in bed with OT starting a brief change. Pt agrees to PT. Pt reports no pain. Appearance At end of treatment pt request using the restroom; pt is placed on commode; pt is given assistance with standing by PT while OT pulls pants up/down and completes wiping. Pt is then assisted into bed where she is left with access to tray, call button, and all needs have been met. Mental Status Patient Orientation: Person, Confused Transfers SCALE: Activities may be completed with or without assistive devices. 9-Pjpebhnnjv-glupzgs completes the activity by him/herself with no assistance from a helper. 5-Set-up or Clean-up Assistance-helper sets up or cleans up; patient completes activity. [place] assists only prior to or following the activity. 4-Supervision or Touching Assistance-helper provides verbal cues and/or touching/steadying and/or contact guard assistance as patient completes activity. Assistance may be provided throughout the activity or intermittently. 3-Partial/Moderate Assistance-helper does LESS THAN HALF the effort. [place] lifts, holds or supports trunk or limbs, but provides less than half the effort. 2-Substantial/Maximal Assistance-helper does MORE THAN HALF the effort. [place] lifts or holds trunk or limbs and provides more than half the effort. 4-Gaafartfi-yuyksz does ALL the effort. Patient does none of the effort to compl ete the activity. Or, the assistance of 2 or more helpers is required for the patient to complete the activity. If activity was not attempted, code reason: 7-Patient Refused. 9-Not Applicable-not attempted and the patient did not perform the activity before the current illness, exacerbation or injury. 10-Not Attempted due to Environmental Limitations-(lack of equipment, weather restraints, etc.). 88-Not Attempted due to Medical Conditions or Safety Concerns. Roll Left & Right (QC): 2 Sit to Lying (QC): 1 Lying to Sitting/Side of Bed(Q: 2 Sit to Stand (QC): 2 Chair/Cxz-bq-Qgiig Xfer(QC): 2 Toilet Transfer (QC): 2 Weight Bearing Full Weight Bearing Full Weight Bearing Wheelchair Training Does the Pt Use a Wheelchair?: Yes Wheel 50 ft with 2 turns (QC): 2 Wheel 150 ft (QC): 1 Exercises Seated balance activity with balloon taps Static standing balance in parallel bars 3x30s Treatments Seated and standing balance Assessment Current Status: Fair Progress While pt requires max assist with most standing, she did demonstrate a min- assist sit to stand with max encouragement; pt inconsistent due to behaviors. Pt struggles participation in therapy as she in unwilling to focus on tasks or complete tasks outside of her personal agenda. Co-treated with OT due to patient's limitations in strength, mobility, transfers, and coordination of LEs and UEs. PT Short Term Goals Short Term Goals Time Frame: Apr 05, 2020 Roll Left & Right: 3 Sit to lyin Lying to sitting on side of be: 3 Sit to stand: 3 Chair/fwc-su-ukhlb transfer: 3 Walk 10 feet: 3 PT Folder Machine Operator Goals Folder Machine Operator Goals PT Folder Machine Operator Goals Time Frame: Apr 19, 2020 Roll Left & Right (QC): 3 (Emily) Sit to Lying (QC): 3 (Emily) Lying-Sitting on Side/Bed(QC): 3 Sit to Stand (QC): 3 (Emily) Chair/Alr-ux-Gukuz Xfer(QC): 3 (Emily) Toilet Transfer (QC): 3 (Emily) Car Transfer (QC): 3 (Emily) Does the Patient Walk: Yes Walk 10 feet (QC): 3 (Emily) Walk 50ft with 2 Turns (QC): 88 Walk 150 ft (QC): 88 Walking 10ft on Uneven Surface: 88 1 Step (curb) (QC): 88 4 Steps (QC): 88 12 Steps (QC): 88 Picking up an Object (QC): 88 Wheel 50 feet with 2 turns (QC: 3 Wheel 150 feet: 3 PT Plan Problem List Problem List: Activity Tolerance, Functional Strength, Safety, Balance, Gait, Transfer, Bed Mobility, ROM Treatment/Plan Treatment Plan: Continue Plan of Care Treatment Plan: Bed Mobility, Education, Functional Activity Yuriy, Functional Strength, Group Therapy, Gait, Safety, Therapeutic Exercise, Transfers Treatment Duration: Apr 19, 2020 Frequency: At least 5 of 7 days/Wk (IRF) Estimated Hrs Per Day: 1.5 hours per day Patient and/or Family Agrees t: Yes Safety Risks/Education Patient Education: Transfer Techniques, Correct Positioning, W/C Management, Safety Issues Teaching Recipient: Patient Teaching Methods: Demonstration, Discussion Response to Teaching: Reinforcement Needed Time/GCodes Time In: 0800 Time Out: 0900 Total Billed Treatment Time: 60 Total Billed Treatment 1 visit NM 15' FA 45' CONCEPCIÓN CARLOS PT Apr 05, 2020 11:00
--- NOTE | 2020-04-05 11:31 | NUR ---
CM/SS DISCHARGE PLANNING Family education and training scheduled April 08, at 1000. Patient's spouse Art and grandson Arash will be coming to observe patient's level of care needs in order to determine whether they believe they can provide for her at home. She is requiring assistance for all transfers this time whereas prior to CVA she could ambulate about her home. Once family decision has been made, the discharge pathway will either be home with additional assistive devices or community correction placement. Barrier to return home would be patient's functional limitations requiring hands on assist for all transfers, toileting (bowel/bladder incontinence), personal care, nutrition. Patient is not ambulatory at this time, would be wheelchair dependent. Followup during family visit/session Wednesday.
--- NOTE | 2020-04-05 13:23 | Physical Therapy Daily Note ---
PT Daily Note-Current Subjective Pt presents laying supine in bed; pt is not wearing briefs, nursing is notified of this and they were aware of it. Pt agrees to PT. Pt reports no pain. Appearance At conclusion of PT treatment pt remains in bed. Pt has access to tray, call button, and all needs have been met. Bed alarm on. Mental Status Patient Orientation: Person, Confused Transfers SCALE: Activities may be completed with or without assistive devices. 7-Asarzcbpxv-jghpztw completes the activity by him/herself with no assistance from a helper. 5-Set-up or Clean-up Assistance-helper sets up or cleans up; patient completes activity. [place] assists only prior to or following the activity. 4-Supervision or Touching Assistance-helper provides verbal cues and/or t ouching/steadying and/or contact guard assistance as patient completes activity. Assistance may be provided throughout the activity or intermittently. 3-Partial/Moderate Assistance-helper does LESS THAN HALF the effort. [place] lifts, holds or supports trunk or limbs, but provides less than half the effort. 2-Substantial/Maximal Assistance-helper does MORE THAN HALF the effort. [place] lifts or holds trunk or limbs and provides more than half the effort. 6-Rvydpdinn-texblk does ALL the effort. Patient does none of the effort to complete the activity. Or, the assistance of 2 or more helpers is required for the patient to complete the activity. If activity was not attempted, code reason: 7-Patient Refused. 9-Not Applicable-not attempted and the patient did not perform the activity before the current illness, exacerbation or injury. 10-Not Attempted due to Environmental Limitations-(lack of equipment, weather restraints, etc.). 88-Not Attempted due to Medical Conditions or Safety Concerns. Weight Bearing Full Weight Bearing Full Weight Bearing Exercises Supine Ex: Ankle pumps, Straight leg raise Supine Reps: 20 Treatments LE strengthening Assessment Current Status: Poor Progress Pt requires consistent cueing to complete exercises; pt is slow to complete due to lack of focus. PT Short Term Goals Short Term Goals Time Frame: Apr 05, 2020 Roll Left & Right: 3 Sit to lyin Lying to sitting on side of be: 3 Sit to stand: 3 Chair/koh-zf-blkpm transfer: 3 Walk 10 feet: 3 PT Prison Goals Prison Goals PT Code Enforcement Inspector Goals Time Frame: Apr 19, 2020 Roll Left & Right (QC): 3 (Emily) Sit to Lying (QC): 3 (Emily) Lying-Sitting on Side/Bed(QC): 3 Sit to Stand (QC): 3 (Emily) Chair/Zrk-qy-Adgxo Xfer(QC): 3 (Emily) Toilet Transfer (QC): 3 (Emily) Car Transfer (QC): 3 (Emily) Does the Patient Walk: Yes Walk 10 feet (QC): 3 (Emily) Walk 50ft with 2 Turns (QC): 88 Walk 150 ft (QC): 88 Walking 10ft on Uneven Surface: 88 1 Step (curb) (QC): 88 4 Steps (QC): 88 12 Steps (QC): 88 Picking up an Object (QC): 88 Wheel 50 feet with 2 turns (QC: 3 Wheel 150 feet: 3 PT Plan Problem List Problem List: Activity Tolerance, Functional Strength, Safety, Balance, Gait, Transfer, Bed Mobility, ROM Treatment/Plan Treatment Plan: Continue Plan of Care Treatment Plan: Bed Mobility, Education, Functional Activity Yuriy, Functional Strength, Group Therapy, Gait, Safety, Therapeutic Exercise, Transfers Treatment Duration: Apr 19, 2020 Frequency: At least 5 of 7 days/Wk (IRF) Estimated Hrs Per Day: 1.5 hours per day Patient and/or Family Agrees t: Yes Safety Risks/Education Patient Education: Correct Positioning, Safety Issues Teaching Recipient: Patient Teaching Methods: Demonstration, Discussion Response to Teaching: Reinforcement Needed Time/GCodes Time In: 1300 Time Out: 1315 Total Billed Treatment Time: 15 Total Billed Treatment 1 visit EX CONCEPCIÓN GUERRA PT Apr 05, 2020 13:23
--- NOTE | 2020-04-05 13:32 | Cardiology Progress Note ---
Subjective Date Seen by Provider: Apr 05, 2020 Time Seen by Provider: 13:31 Subjective/Events-last exam Patient was seen and evaluated, laying down in bed, no new complaint Review of Systems General: No Chills, No Night Sweats, No Fatigue, No Malaise, No Appetite, No Other HEENT: No Head Aches, No Visual Changes, No Eye Pain, No Ear Pain, No Dysphasia, No Sinus Congestion, No Post Nasal Drip, No Sore Throat, No Other Pulmonary: No Dyspnea, No Cough, No Pleuritic Chest Pain, No Other Cardiovascular: No: Chest Pain, Palpitations, Orthopnea, Paroxysmal Noc. Dyspnea, Edema, Lt Headedness, Other Objective-Cardiology Exam Last Set of Vital Signs Vital Signs 04/05/20 04/05/20 06:00 09:00 Temp 36.8 Pulse 72 Resp 18 B/P (MAP) 147/67 (93) Pulse Ox 94 O2 Delivery Room Air Capillary Refill : Less Than 3 Seconds I&O Intake and Output 04/05/20 00:00 Intake Total 850 ml Balance 850 ml Intake Oral 850 ml # Urine Diapers 6 General: Alert, Cooperative, No Acute Distress HEENT: Atraumatic, PERRLA Neck: Supple, No JVD Lungs: Clear to Auscultation, Normal Air Movement Heart: Regular Rate, Normal S1, Normal S2, No Murmurs Abdomen: Normal Bowel Sounds, Soft, No Tenderness Extremities: No Clubbing, No Cyanosis, No Edema, Normal Pulses Skin: No Rashes, No Significant Lesion Neuro: Normal Speech, Cranial Nerves 3-12 NL Psych/Mental Status: Mental Status NL, Mood NL Results Lab Laboratory Tests Test 04/04/20 15:26 04/04/20 20:06 04/05/20 05:33 04/05/20 10:57 Range/Units Glucometer 204 H 101 122 H 221 H 70-110 MG/DL A/P-Cardiology Admission Diagnosis CVA R ICA thrombus PAF COPD Assessment/Plan S/P right MCA CVA with left-sided weakness d/t R ICA thrombus per [facility] records . Maintained on Eliquis. Reported h/o PAF, continue to monitor. Labile blood pressure, losartan was discontinued on April 04, 2020, today blood pressure is elevated. I will continue monitoring without restarting the medication. Stress test done November 2016 showed LVEF 63% no signif ischemia or infarction. Echo of November 2016 showed LVEF 60-65% COPD, management per medical services DM 2, management per medical services. HLD, maintained on statin CKD 2, continue to monitor renal function Alzheimers dementia PTSD Clinical Quality Measures DVT/VTE Risk/Contraindication: Risk Factor Score Per Nursin RFS Level Per Nursing on Admit: 4+=Very High JACKIE BHATTI MD Apr 05, 2020 13:32
--- NOTE | 2020-04-05 13:39 | Speech Therapy Daily Note ---
Speech Daily Progress Note Subjective Date Seen by Provider: Apr 05, 2020 Time Seen by Provider: 00:30 Patient was laying in her bed, eating a snack when I entered her room. Objective Patient completed a series of questions related to temporal and environmental orientation at 60% with maximum verbal and/or visual cues. Assessment Assessment Current Status: Poor Progress Treatment Plan Continue Plan of Care Speech Short Term Goals Short Term Goals Short Term Goals 1) Patient will complete memory tasks at 75% or greater. 2) Patient will complete safety awareness tasks at 75% or greater. 3) Patient will complete problem solving tasks at 75% or greater. Speech Director Of Front Office Goals Director Of Front Office Goals Patient will improve cognitive-communication necessary for safety and daily living tasks with minimal assist. Speech-Plan Patient/Family Goals Patient/Family Goals: Patient plans on returning to her home where she lives with her . Treatment Plan Speech Therapy Treatment Plan: Continue Plan of Care Treatment Duration: Apr 10, 2020 Frequency: 4 times per week (Patient will receive skilled ST 4-5x per week) Estimated Hrs Per Day: .5 hour per day Rehab Potential: Guarded Barriers to Learning: Patient's Alzheimer's, recent CVA Safety Risks/Education Teaching Recipient: Patient Teaching Methods: Demonstration, Discussion Response to Teaching: Verbalize Understanding, Return Demonstration Education Topics Provided: Continued safety within her room, utilization of call light, calendar and white board Time Speech Therapy Time In: 10:30 Speech Therapy Time Out: 11:00 Total Billed Time: 30 Billed Treatment Time 1, LORIN Quintanilla Apr 05, 2020 13:39
--- NOTE | 2020-04-05 14:09 | NUR ---
RD ASSESSMENT PMHx: DM; COPD; Alzheimer's disease; HTN; chronic UTI; afib; stroke PT INTERACTION: Pt was awake and pleasant during nutrition follow-up. Note pt has dementia, per chart review. Pt states she has been eating "just fine" since last assessment. Note avg PO intake 40% x4d, per chart review. Pt states no issues with nausea, vomiting, constipation, or diarrhea since last assessment. Note last BM was 04/03, and pt currently on bowel regimen of colace BID; senna BID; and miralax BID, per chart review. ABNORMAL NUTRITION-RELATED LAB VALUES LOW: HIGH: glu 122; AST 49 Est. kcal needs: 1500 kcal | 20 kcal/kg Est. Pro needs: 61 g Pro | 0.8 g Pro/kg PES STATEMENT: Inadequate oral intake (NI-2.1) related to loss of appetite | confusions as evidenced by pt interview | avg PO intake 40% x4d INTERVENTION: Continue with current diet order of CHO 60g/m 3snack diet. Add Glucerna (vary) to meals TID, for increased kcal intake. Provides 220 kcal and 10 g Pro per serving. Encouraged pt to eat when able. Will continue to follow and reassess as pt needs, intake, and status change. José Antonio Baron, MS RD LD
[2020-04-05 16:00] VITALS: BP 124/61
--- NOTE | 2020-04-05 16:28 | NUR ---
CM/SS VOTING As documented in EMR assessments and summaries, patient is unable to exercise her right to vote at this time due to cognition impairment.
[2020-04-05 18:00] VITALS: BP 147/67
[2020-04-05] MEDS: MELATONIN 3 MG TABLET PO PRN (21:09)
[2020-04-06 06:00] VITALS: BP 124/67
[2020-04-06] MEDS: CYANOCOBALAMIN 1,000 MCG (VITAMIN B-12) TABLET PO SCH (06:18)
[2020-04-06] MEDS: inSUlin ASPART (NovoLOG) 1 UNIT/0.01 ML (CHARGE PER UNIT) SC SCH ×4 (06:18→20:42)
[2020-04-06] MEDS: MULTIVIT W/MINERALS TAB (THERAGRAN M) PO SCH (06:18)
--- NOTE | 2020-04-06 06:27 | PM&R Progress Note ---
Subjective HPI/CC On Admission Date Seen by Provider: Apr 06, 2020 Time Seen by Provider: 12:00 Subjective/Events-last exam 04/06/20: No falls but she had behaviors that increase risk Dementia is significant No pain reported 04/05/20: Fairly cranky with nurse aid today Blood sugar 122 Overall doing well 04/04/20: Significant dementia continues Overall doing pretty well otherwise Bowels are moving Eating and drinking well No falls 04/03/20: Bowels were moving earlier today May need a suppository if they are not evacuating Holding Cozaar due to mild low BP Overall doing pretty well but dementia is significant 04/02/20: Pt doing pretty well Dementia precludes anything but a poor prognosis box estimator Will work on disposition Has no complaints 04/01/20: Bowels moved 4x yesterday after complete evacuation No pain is reported Labs are okay 03/31/20: Monitoring BP No bleed issues from OAC AF rate controlled BM x 4 after suppository Delusions at times 03/30/20: Doing well Leans to the left Suppository will be required since no BM for several days No changes otherwise Patient settled in to IRF Baseline dementia and labile changes to behaviors is at baseline No pain reported SLUMS cannot be performed due to severity of dementia Left sided weakness is profound No falls Checked meds and labs Conferred with RN Reviewed therapy notes Review of Systems Neurological: Weakness, Incoordination, Confusion Objective Exam Vital Signs Vital Signs Date Time Temp Pulse Resp B/P (MAP) Pulse Ox O2 Delivery O2 Flow Rate FiO2 04/06/20 16:13 36.8 69 16 113/59 (77) 95 Room Air Capillary Refill : Less Than 3 Seconds General Appearance: No Apparent Distress, WD/WN, Chronically ill HEENT: PERRL/EOMI, Normal ENT Inspection, Pharynx Normal Neck: Full Range of Motion, Normal Inspection, Non Tender, Supple, Carotid Bruit Respiratory: Chest Non Tender, Lungs Clear, Normal Breath Sounds, No Accessory Muscle Use, No Respiratory Distress Cardiovascular: No Edema, No Gallop, No JVD, No Murmur, Normal Peripheral Pulses, Irregularly Irregular Gastrointestinal: Normal Bowel Sounds, No Organomegaly, No Pulsatile Mass, Non Tender, Soft Back: Normal Inspection, No CVA Tenderness, No Vertebral Tenderness Extremity: Normal Capillary Refill, Normal Inspection, Normal Range of Motion, Non Tender, No Calf Tenderness, No Pedal Edema Neurologic/Psychiatric: Alert, No Motor/Sensory Deficits, Normal Mood/Affect, tester printed circuit boards II-XII Norm as Tested, Abnormal Gait, Disoriented, Facial Droop (left), Motor Weakness (left sided partial flaccidity) Skin: Normal Color, Warm/Dry Lymphatic: No Adenopathy Results/Procedures Lab Patient resulted labs reviewed. FIM Transfers Therapy Code Descriptions/Definitions Functional [place] Measure: 0=Not Assessed/NA 4=Minimal Assistance 1=Total Assistance 5=Supervision or Setup 2=Maximal Assistance 6=Modified [place] 3=Moderate Assistance 7=Complete IndependenceSCALE: Activities may be completed with or without assistive devices. 0-Eplhselkdg-ggjztrw completes the activity by him/herself with no assistance from a helper. 5-Set-up or Clean-up Assistance-helper sets up or cleans up; patient completes activity. [place] assists only prior to or following the activity. 4-Supervision or Touching Assistance-helper provides verbal cues and/or touching/steadying and/or contact guard assistance as patient completes activity. Assistance may be provided throughout the activity or intermittently. 3-Partial/Moderate Assistance-helper does LESS THAN HALF the effort. [place] lifts, holds or supports trunk or limbs, but provides less than half the effort. 2-Substantial/Maximal Assistance-helper does MORE THAN HALF the effort. [place] lifts or holds trunk or limbs and provides more than half the effort. 4-Zsoywlcox-fwxkxo does ALL the effort. Patient does none of the effort to complete the activity. Or, the assistance of 2 or more helpers is required for the patient to complete the activity. If activity was not attempted, code reason: 7-Patient Refused. 9-Not Applicable-not attempted and the patient did not perform the activity before the current illness, exacerbation or injury. 10-Not Attempted due to Environmental Limitations-(lack of equipment, weather restraints, etc.). 88-Not Attempted due to Medical Conditions or Safety Concerns. Roll Left to Right (QC): 2 Sit to Lying (QC): 1 Sit to Stand (QC): 2 Chair/Yeg-kh-Mpnls Xfer(QC): 2 Car Transfer (QC): 88 Gait Training Does the Patient Walk?: No and Walking Goal IS indicated Walk 10 feet (QC): 88 Walk 50 ft with 2 Turns(QC): 88 Walk 150 ft (QC): 88 Walking 10ft/uneven surface-QC: 88 Wheelchair Training Does the Pt Use a Wheelchair?: Yes Distance: 150'x2 Wheel 50 ft with 2 turns (QC): 2 Wheel 150 ft (QC): 1 Type of Wheelchair: Manual Stair Training 1 Step (curb) (QC): 88 4 Steps (QC): 88 12 Steps (QC): 88 Balance Picking up an Object (QC): 88 ADL-Treatment Eating (QC): 5 (After set up and making sure most of meal was on L side, pt able to use regular utensils to eat.) Oral Hygiene (QC): 3 Shower/Bathe Self (QC): 1 Upper Body Dressing (QC): 2 Lower Body Dressing (QC): 2 On/Off Footwear (QC): 2 Toileting Hygiene (QC): 2 Toilet Transfer (QC): 1 Assessment/Plan Assessment and Plan Assess & Plan/Chief Complaint Assessment: 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 02/21/20 transferred to New onset AF OAC DM HTN COPD Dementia Confusion at baseline Vit B12 deficiency Left sided weakness h/o UTI Plan: IRF protocol OAC Cardiology consultation Monitor closely 03/29/20: OAC Monitor AF Dementia at baseline 03/30/20: BM regimen Monitor left sided weakness 03/31/20: Monitor delusions Monitor BP 04/01/20: Bowels moved plenty yesterday hold laxatives Monitor blood pressure 04/02/20: Continue intensive therapy Dementia is severe 04/03/20: Monitor BP IRF protocol 04/04/20: Monitor for falls Monitor BP 04/05/20: Monitor BP Fall risk Confusion monitoring 04/06/20: Monitor for falls (1) Acute ischemic right MCA stroke Status: Acute (2) Atrial fibrillation (3) History of UTI (4) Dementia (5) Left-sided weakness (6) COPD (chronic obstructive pulmonary disease) (7) B12 deficiency (8) Altered mental status Status: Acute (9) Diabetes mellitus (10) Hypertension KULDEEP PAYNE DO Apr 06, 2020 06:27
[2020-04-06] MEDS: APIXABAN 5 MG (ELIQUIS) TABLET PO SCH ×2 (08:12→20:43)
[2020-04-06] MEDS: polyethylene glycoL POWDER 17 GM (MIRALAX) PACK PO SCH ×2 (08:12→20:43)
[2020-04-06] MEDS: SENNA W/DOCUSATE (SENOKOT S) TABLET PO SCH ×2 (08:12→20:43)
--- NOTE | 2020-04-06 09:44 | Physical Therapy Daily Note ---
PT Daily Note-Current Subjective Pt.in bed, laying semi reclined, bowl of unspilled oatmeal and cup in bed with her. Pt. opens eyes when spoken to. Pt. states she needs to get up to use toilet. Pain Location: No Pain Reported Mental Status Patient Orientation: Confused Transfers SCALE: Activities may be completed with or without assistive devices. 7-Dhzwuqapqf-njzivgc completes the activity by him/herself with no assistance from a helper. 5-Set-up or Clean-up Assistance-helper sets up or cleans up; patient completes activity. [place] assists only prior to or following the activity. 4-Supervision or Touching Assistance-helper provides verbal cues and/or touching/steadying and/or contact guard assistance as patient completes activit y. Assistance may be provided throughout the activity or intermittently. 3-Partial/Moderate Assistance-helper does LESS THAN HALF the effort. [place] lifts, holds or supports trunk or limbs, but provides less than half the effort. 2-Substantial/Maximal Assistance-helper does MORE THAN HALF the effort. [place] lifts or holds trunk or limbs and provides more than half the effort. 4-Hrunxkqfk-lcltlc does ALL the effort. Patient does none of the effort to complete the activity. Or, the assistance of 2 or more helpers is required for the patient to complete the activity. If activity was not attempted, code reason: 7-Patient Refused. 9-Not Applicable-not attempted and the patient did not perform the activity before the current illness, exacerbation or injury. 10-Not Attempted due to Environmental Limitations-(lack of equipment, weather restraints, etc.). 88-Not Attempted due to Medical Conditions or Safety Concerns. Sit to Lying (QC): 3 Lying to Sitting/Side of Bed(Q: 3 Sit to Stand (QC): 2 Chair/Ttn-bc-Qtpxx Xfer(QC): 2 Toilet Transfer (QC): 2 sup to sit and sitting EOB all required mod assist as pt. closes eyes and writhes left to right or lets eyes drift back in head, pt. still states she wants to toilet. BSC sat at 90 degree angle to bed and 2 assist summoned. instructions for SPT to BS was explained multiple times. Brief was loosened and max to mod TRF was done to [facility] as pt. gave min to no assist to TRF . Almost as soon as pts bottom was on BSC she forced into trunk extension forcing dutch area out of range of open hole area of BSC, several attempts made to pull hips and trunk back to center her on BSC to toilet, each time pt. extending trunk as before. This position being unsafe looking as if pt. would slide onto floor with seemingly no protective response , pt.leaning left and right with no regard for her safety . [facility] then made decision to put pt. back in bed, clean brief was applied , rolling left and right with min to tactile assist. pt.was then instructed to pull with UEs and push with LEs to move upward in bed, pt. does not respond, eyes again closed, max assist to pull up in to bed, alarm set, and call button placed at hand with instruction for use Weight Bearing Full Weight Bearing Full Weight Bearing Assessment Current Status: Poor Progress unsafe , no protective responses noted, dependent for all, at risk for falls, max assist of 2, no indication of following instructions PT Short Term Goals Short Term Goals Time Frame: Apr 05, 2020 Roll Left & Right: 3 Sit to lyin Lying to sitting on side of be: 3 Sit to stand: 3 Chair/wvm-it-ivyki transfer: 3 Walk 10 feet: 3 PT Skilled Nursing Goals Alteration Hand Goals PT Skilled Nursing Goals Time Frame: Apr 19, 2020 Roll Left & Right (QC): 3 (Emily) Sit to Lying (QC): 3 (Emily) Lying-Sitting on Side/Bed(QC): 3 Sit to Stand (QC): 3 (Emily) Chair/Lhd-gx-Zlwya Xfer(QC): 3 (Emily) Toilet Transfer (QC): 3 (Emily) Car Transfer (QC): 3 (Emily) Does the Patient Walk: Yes Walk 10 feet (QC): 3 (Emily) Walk 50ft with 2 Turns (QC): 88 Walk 150 ft (QC): 88 Walking 10ft on Uneven Surface: 88 1 Step (curb) (QC): 88 4 Steps (QC): 88 12 Steps (QC): 88 Picking up an Object (QC): 88 Wheel 50 feet with 2 turns (QC: 3 Wheel 150 feet: 3 PT Plan Treatment/Plan Treatment Plan: Continue Plan of Care Treatment Plan: Bed Mobility, Education, Functional Activity Yuriy, Functional Strength, Group Therapy, Gait, Safety, Therapeutic Exercise, Transfers Treatment Duration: Apr 19, 2020 Frequency: At least 5 of 7 days/Wk (IRF) Estimated Hrs Per Day: 1.5 hours per day Patient and/or Family Agrees t: Yes Safety Risks/Education Patient Education: Transfer Techniques Teaching Recipient: Patient Teaching Methods: Discussion Response to Teaching: Unable to Return Demonstration, Unable to Comprehend, Reinforcement Needed Time/GCodes Time In: 900 Time Out: 935 Total Billed Treatment Time: 35 Total Billed Treatment 1,FA35m [facility] Apr 06, 2020 09:44
--- NOTE | 2020-04-06 10:46 | Cardiology Progress Note ---
Subjective Date Seen by Provider: Apr 06, 2020 Time Seen by Provider: 10:46 Subjective/Events-last exam Patient is laying down in bed, feeling better. No new complaint. Review of Systems General: No Chills, No Night Sweats, No Fatigue, No Malaise, No Appetite, No Other HEENT: No Head Aches, No Visual Changes, No Eye Pain, No Ear Pain, No Dysphasia, No Sinus Congestion, No Post Nasal Drip, No Sore Throat, No Other Pulmonary: No Dyspnea, No Cough, No Pleuritic Chest Pain, No Other Cardiovascular: No: Chest Pain, Palpitations, Orthopnea, Paroxysmal Noc. Dyspnea, Edema, Lt Headedness, Other Objective-Cardiology Exam Last Set of Vital Signs Vital Signs 04/06/20 04/06/20 06:00 09:00 Temp 36.9 Pulse 72 Resp 18 B/P (MAP) 124/67 (86) Pulse Ox 96 O2 Delivery Room Air Capillary Refill : Less Than 3 Seconds I&O Intake and Output 04/05/20 23:59 Intake Total 1300 ml Balance 1300 ml Intake Oral 1300 ml # Voids 3 # Urine Diapers 2 General: Alert, Cooperative, No Acute Distress HEENT: Atraumatic, PERRLA Neck: Supple, No JVD Lungs: Clear to Auscultation, Normal Air Movement Heart: Regular Rate, Normal S1, Normal S2, No Murmurs Abdomen: Normal Bowel Sounds, Soft, No Tenderness Extremities: No Clubbing, No Cyanosis, No Edema, Normal Pulses Skin: No Rashes, No Significant Lesion Neuro: Normal Speech, Cranial Nerves 3-12 NL Psych/Mental Status: Mental Status NL, Mood NL A/P-Cardiology Admission Diagnosis CVA R ICA thrombus PAF COPD Assessment/Plan S/P right MCA CVA with left-sided weakness d/t R ICA thrombus per [facility] records . Maintained on Eliquis. Reported h/o PAF, continue to monitor. Labile blood pressure, losartan was discontinued on April 04, 2020, today bloo d pressure is elevated. I will continue monitoring without restarting the medication. Stress test done November 2016 showed LVEF 63% no signif ischemia or infarction. Echo of November 2016 showed LVEF 60-65% COPD, management per medical services DM 2, management per medical services. HLD, maintained on statin CKD 2, continue to monitor renal function Alzheimers dementia PTSD Clinical Quality Measures DVT/VTE Risk/Contraindication: Risk Factor Score Per Nursin RFS Level Per Nursing on Admit: 4+=Very High JACKIE BHATTI MD Apr 06, 2020 10:46
[2020-04-06 16:13] VITALS: BP 113/59
[2020-04-06] MEDS: DOCUSATE SODIUM 100 MG (COLACE) CAP PO PRN (20:43)
[2020-04-06] MEDS: MELATONIN 3 MG TABLET PO PRN (20:43)
[2020-04-07] MEDS: inSUlin ASPART (NovoLOG) 1 UNIT/0.01 ML (CHARGE PER UNIT) SC SCH ×4 (05:46→20:23)
[2020-04-07 05:53] VITALS: BP 119/60
[2020-04-07] MEDS: MULTIVIT W/MINERALS TAB (THERAGRAN M) PO SCH (06:07)
[2020-04-07] MEDS: CYANOCOBALAMIN 1,000 MCG (VITAMIN B-12) TABLET PO SCH (06:07)
[2020-04-07] MEDS: SENNA W/DOCUSATE (SENOKOT S) TABLET PO SCH ×2 (08:50→20:23)
[2020-04-07] MEDS: polyethylene glycoL POWDER 17 GM (MIRALAX) PACK PO SCH ×2 (08:51→20:23)
[2020-04-07] MEDS: APIXABAN 5 MG (ELIQUIS) TABLET PO SCH ×2 (08:51→20:23)
--- NOTE | 2020-04-07 11:16 | NUR ---
Dr Palacios here. No new orders noted
--- NOTE | 2020-04-07 11:47 | PM&R Progress Note ---
Subjective HPI/CC On Admission Date Seen by Provider: Apr 07, 2020 Time Seen by Provider: 12:00 Subjective/Events-last exam 04/07/20: No issues In good mood 04/06/20: No falls but she had behaviors that increase risk Dementia is significant No pain reported 04/05/20: Fairly cranky with nurse aid today Blood sugar 122 Overall doing well 04/04/20: Significant dementia continues Overall doing pretty well otherwise Bowels are moving Eating and drinking well No falls 04/03/20: Bowels were moving earlier today May need a suppository if they are not evacuating Holding Cozaar due to mild low BP Overall doing pretty well but dementia is significant 04/02/20: Pt doing pretty well Dementia precludes anything but a poor prognosis 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 Will 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 on disposition Has no complaints 04/01/20: Bowels moved 4x yesterday after complete evacuation No pain is reported Labs are okay 03/31/20: Monitoring BP No bleed issues from OAC AF rate controlled BM x 4 after suppository Delusions at times 03/30/20: Doing well Leans to the left Suppository will be required since no BM for several days No changes otherwise Patient settled in to IRF Baseline dementia and labile changes to behaviors is at baseline No pain reported SLUMS cannot be performed due to severity of dementia Left sided weakness is profound No falls Checked meds and labs Conferred with RN Reviewed therapy notes Review of Systems Neurological: Weakness, Incoordination, Confusion Objective Exam Vital Signs Vital Signs Date Time Temp Pulse Resp B/P (MAP) Pulse Ox O2 Delivery O2 Flow Rate FiO2 04/07/20 09:00 Room Air 04/07/20 05:53 37.1 70 18 119/60 (79) 95 Capillary Refill : Less Than 3 Seconds General Appearance: No Apparent Distress, WD/WN, Chronically ill HEENT: PERRL/EOMI, Normal ENT Inspection, Pharynx Normal Neck: Full Range of Motion, Normal Inspection, Non Tender, Supple, Carotid Bruit Respiratory: Chest Non Tender, Lungs Clear, Normal Breath Sounds, No Accessory Muscle Use, No Respiratory Distress Cardiovascular: No Edema, No Gallop, No JVD, No Murmur, Normal Peripheral Pulses, Irregularly Irregular Gastrointestinal: Normal Bowel Sounds, No Organomegaly, No Pulsatile Mass, Non Tender, Soft Back: Normal Inspection, No CVA Tenderness, No Vertebral Tenderness Extremity: Normal Capillary Refill, Normal Inspection, Normal Range of Motion, Non Tender, No Calf Tenderness, No Pedal Edema Neurologic/Psychiatric: Alert, No Motor/Sensory Deficits, Normal Mood/Affect, profiler II-XII Norm as Tested, Abnormal Gait, Disoriented, Facial Droop (left), M otor Weakness (left sided partial flaccidity) Skin: Normal Color, Warm/Dry Lymphatic: No Adenopathy Results/Procedures Lab Patient resulted labs reviewed. FIM Transfers Therapy Code Descriptions/Definitions Functional [place] Measure: 0=Not Assessed/NA 4=Minimal Assistance 1=Total Assistance 5=Supervision or Setup 2=Maximal Assistance 6=Modified [place] 3=Moderate Assistance 7=Complete IndependenceSCALE: Activities may be completed with or without assistive devices. 2-Zjokvwoywf-gezmdiq completes the activity by him/herself with no assistance from a helper. 5-Set-up or Clean-up Assistance-helper sets up or cleans up; patient completes activity. [place] assists only prior to or following the activity. 4-Supervision or Touching Assistance-helper provides verbal cues and/or touching/steadying and/or contact guard assistance as patient completes activity. Assistance may be provided throughout the activity or intermittently. 3-Partial/Moderate Assistance-helper does LESS THAN HALF the effort. [place] lifts, holds or supports trunk or limbs, but provides less than half the effort. 2-Substantial/Maximal Assistance-helper does MORE THAN HALF the effort. [place] lifts or holds trunk or limbs and provides more than half the effort. 1-Uivdlodnw-ttocfp does ALL the effort. Patient does none of the effort to complete the activity. Or, the assistance of 2 or more helpers is required for the patient to complete the activity. If activity was not attempted, code reason: 7-Patient Refused. 9-Not Applicable-not attempted and the patient did not perform the activity before the current illness, exacerbation or injury. 10-Not Attempted due to Environmental Limitations-(lack of equipment, weather restraints, etc.). 88-Not Attempted due to Medical Conditions or Safety Concerns. Roll Left to Right (QC): 2 Sit to Lying (QC): 3 Sit to Stand (QC): 2 Chair/Hba-rk-Dfqzz Xfer(QC): 2 Car Transfer (QC): 88 Gait Training Does the Patient Walk?: No and Walking Goal IS indicated Walk 10 feet (QC): 88 Walk 50 ft with 2 Turns(QC): 88 Walk 150 ft (QC): 88 Walking 10ft/uneven surface-QC: 88 Wheelchair Training Does the Pt Use a Wheelchair?: Yes Distance: 150'x2 Wheel 50 ft with 2 turns (QC): 2 Wheel 150 ft (QC): 1 Type of Wheelchair: Manual Stair Training 1 Step (curb) (QC): 88 4 Steps (QC): 88 12 Steps (QC): 88 Balance Picking up an Object (QC): 88 ADL-Treatment Eating (QC): 5 (After set up and making sure most of meal was on L side, pt able to use regular utensils to eat.) Oral Hygiene (QC): 3 Shower/Bathe Self (QC): 1 Upper Body Dressing (QC): 2 Lower Body Dressing (QC): 2 On/Off Footwear (QC): 2 Toileting Hygiene (QC): 2 Toilet Transfer (QC): 1 Assessment/Plan Assessment and Plan Assess & Plan/Chief Complaint Assessment: 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 02/21/20 transferred to New onset AF OAC DM HTN COPD Dementia Confusion at baseline Vit B12 deficiency Left sided weakness h/o UTI Plan: IRF protocol OAC Cardiology consultation Monitor closely 03/29/20: OAC Monitor AF Dementia at baseline 03/30/20: BM regimen Monitor left sided weakness 03/31/20: Monitor delusions Monitor BP 04/01/20: Bowels moved plenty yesterday hold laxatives Monitor blood pressure 04/02/20: Continue intensive therapy Dementia is severe 04/03/20: Monitor BP IRF protocol 04/04/20: Monitor for falls Monitor BP 04/05/20: Monitor BP Fall risk Confusion monitoring 04/06/20: Monitor for falls 04/07/20: Monitor closely (1) Acute ischemic right MCA stroke Status: Acute (2) Atrial fibrillation (3) History of UTI (4) Dementia (5) Left-sided weakness (6) COPD (chronic obstructive pulmonary disease) (7) B12 deficiency (8) Altered mental status Status: Acute (9) Diabetes mellitus (10) Hypertension KULDEEP PAYNE DO Apr 07, 2020 11:47
--- NOTE | 2020-04-07 13:02 | Cardiology Progress Note ---
Subjective Date Seen by Provider: Apr 07, 2020 Time Seen by Provider: 13:01 Subjective/Events-last exam Patient is laying down in bed, no new complaint. Review of Systems General: No Chills, No Night Sweats, No Fatigue, No Malaise, No Appetite, No Other HEENT: No Head Aches, No Visual Changes, No Eye Pain, No Ear Pain, No Dysphasia, No Sinus Congestion, No Post Nasal Drip, No Sore Throat, No Other Pulmonary: No Dyspnea, No Cough, No Pleuritic Chest Pain, No Other Cardiovascular: No: Chest Pain, Palpitations, Orthopnea, Paroxysmal Noc. Dyspnea, Edema, Lt Headedness, Other Objective-Cardiology Exam Last Set of Vital Signs Vital Signs 04/07/20 04/07/20 05:53 09:00 Temp 37.1 Pulse 70 Resp 18 B/P (MAP) 119/60 (79) Pulse Ox 95 O2 Delivery Room Air Capillary Refill : Less Than 3 Seconds I&O Intake and Output 04/07/20 00:00 Intake Total 950 ml Balance 950 ml Intake Oral 950 ml # Voids 6 # Bowel Movements 1 General: Alert, Cooperative, No Acute Distress HEENT: Atraumatic, PERRLA Neck: Supple, No JVD Lungs: Clear to Auscultation, Normal Air Movement Heart: Regular Rate, Normal S1, Normal S2, No Murmurs Abdomen: Normal Bowel Sounds, Soft, No Tenderness Extremities: No Clubbing, No Cyanosis, No Edema, Normal Pulses Skin: No Rashes, No Significant Lesion Neuro: Normal Speech, Cranial Nerves 3-12 NL Psych/Mental Status: Mental Status NL, Mood NL Results Lab Laboratory Tests Test 04/06/20 15:43 04/06/20 20:12 04/07/20 05:42 04/07/20 10:53 Range/Units Glucometer 121 H 163 H 126 H 244 H 70-110 MG/DL A/P-Cardiology Admission Diagnosis CVA R ICA thrombus PAF COPD Assessment/Plan 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 Maintained on Eliquis. Reported h/o PAF, continue to monitor. Labile blood pressure, losartan was discontinued on April 04, 2020, doing well. Continue to monitor blood pressure Stress test done November 2016 showed LVEF 63% no signif ischemia or infarction. Echo of November 2016 showed LVEF 60-65% COPD, management per medical services DM 2, management per medical services. HLD, maintained on statin CKD 2, continue to monitor renal function Alzheimers dementia PTSD Clinical Quality Measures DVT/VTE Risk/Contraindication: Risk Factor Score Per Nursin RFS Level Per Nursing on Admit: 4+=Very High JACKIE BHATTI MD Apr 07, 2020 13:02
[2020-04-07 17:17] VITALS: BP 114/57
[2020-04-08 05:32] VITALS: BP 146/71
[2020-04-08 05:32] LABS: BASOPHILS # (AUTO) 0.1 10^3/uL (0.0-0.1); BASOPHILS % (AUTO) 1 % (0-10); EOSINOPHILS # (AUTO) 0.7 10^3/uL (0.0-0.3); EOSINOPHILS % (AUTO) 6 % (0-10); HEMATOCRIT 38 % (35-52); HEMOGLOBIN 12.9 g/dL (11.5-16.0); LYMPHOCYTES # (AUTO) 3.5 10^3/uL (1.0-4.0); LYMPHOCYTES % (AUTO) 28 % (12-44); MEAN CORPUSCULAR HEMOGLOBIN 37 pg (25-34); MEAN CORPUSCULAR HGB CONC 34 g/dL (32-36); MEAN CORPUSCULAR VOLUME 108 fL (80-99); MEAN PLATELET VOLUME 10.5 fL (9.0-12.2); MONOCYTES # (AUTO) 1.1 10^3/uL (0.0-1.0); MONOCYTES % (AUTO) 9 % (0-12); NEUTROPHILS # (AUTO) 6.9 10^3/uL (1.8-7.8); NEUTROPHILS % (AUTO) 56 % (42-75); PLATELET COUNT 618 10^3/uL (130-400); WHITE BLOOD COUNT 12.3 10^3/uL (4.3-11.0)
[2020-04-08 05:46] LABS: ALBUMIN 3.9 GM/DL (3.2-4.5); POTASSIUM 3.9 MMOL/L (3.6-5.0)
[2020-04-08 05:47] LABS: CALCIUM 9.4 MG/DL (8.5-10.1)
[2020-04-08 05:49] LABS: TOTAL PROTEIN 7.7 GM/DL (6.4-8.2)
--- NOTE | 2020-04-08 05:49 | PM&R Progress Note ---
Subjective HPI/CC On Admission Date Seen by Provider: Apr 08, 2020 Time Seen by Provider: 09:00 Subjective/Events-last exam 04/08/20: Family is here for training WBC elevated at 12 but procalcitonin and lactic acid were both normal and afebrile Overall she is doing very well but dementia precludes anything but a poor prognosis 04/07/20: No issues In good mood 04/06/20: No falls but she had behaviors that increase risk Dementia is significant No pain reported 04/05/20: Fairly cranky with nurse aid today Blood sugar 122 Overall doing well 04/04/20: Significant dementia continues Overall doing pretty well otherwise Bowels are moving Eating and drinking well No falls 04/03/20: Bowels were moving earlier today May need a suppository if they are not evacuating Holding Cozaar due to mild low BP Overall doing pretty well but dementia is significant 04/02/20: Pt doing pretty well Dementia precludes anything but a poor prognosis repair specialist Will work on disposition Has no complaints 04/01/20: Bowels moved 4x yesterday after complete evacuation No pain is reported Labs are okay 03/31/20: Monitoring BP No bleed issues from OAC AF rate controlled BM x 4 after suppository Delusions at times 03/30/20: Doing well Leans to the left Suppository will be required since no BM for several days No changes otherwise Patient settled in to IRF Baseline dementia and labile changes to behaviors is at baseline No pain reported SLUMS cannot be performed due to severity of dementia Left sided weakness is profound No falls Checked meds and labs Conferred with RN Reviewed therapy notes Review of Systems Neurological: Weakness, Confusion Focused Exam Lactate Level 04/08/20 06:15: Lactic Acid Level 1.00 Objective Exam Vital Signs Vital Signs Date Time Temp Pulse Resp B/P (MAP) Pulse Ox O2 Delivery O2 Flow Rate FiO2 04/08/20 21:03 Room Air 04/08/20 17:37 36.9 72 16 113/52 (72) 99 Capillary Refill : Less Than 3 Seconds General Appearance: No Apparent Distress, WD/WN, Chronically ill HEENT: PERRL/EOMI, Normal ENT Inspection, Pharynx Normal Neck: Full Range of Motion, Normal Inspection, Non Tender, Supple, Carotid Bruit Respiratory: Chest Non Tender, Lungs Clear, Normal Breath Sounds, No Accessory Muscle Use, No Respiratory Distress Cardiovascular: No Edema, No Gallop, No JVD, No Murmur, Normal Peripheral Pulses, Irregularly Irregular Gastrointestinal: Normal Bowel Sounds, No Organomegaly, No Pulsatile Mass, Non Tender, Soft Back: Normal Inspection, No CVA Tenderness, No Vertebral Tenderness Extremity: Normal Capillary Refill, Normal Inspection, Normal Range of Motion, Non Tender, No Calf Tenderness, No Pedal Edema Neurologic/Psychiatric: Alert, No Motor/Sensory Deficits, Normal Mood/Affect, cdl b driver II-XII Norm as Tested, Abnormal Gait, Disoriented, Facial Droop (left), Motor Weakness (left sided partial flaccidity) Skin: Normal Color, Warm/Dry Lymphatic: No Adenopathy Results/Procedures Lab Patient resulted labs reviewed. FIM Transfers Therapy Code Descriptions/Definitions Functional [place] Measure: 0=Not Assessed/NA 4=Minimal Assistance 1=Total Assistance 5=Supervision or Setup 2=Maximal Assistance 6=Modified [place] 3=Moderate Assistance 7=Complete IndependenceSCALE: Activities may be completed with or without assistive devices. 8-Tubssrnprr-zsseccy completes the activity by him/herself with no assistance from a helper. 5-Set-up or Clean-up Assistance-helper sets up or cleans up; patient completes activity. [place] assists only prior to or following the activity. 4-Supervision or Touching Assistance-helper provides verbal cues and/or touching/steadying and/or contact guard assistance as patient completes activity. Assistance may be provided throughout the activity or intermittently. 3-Partial/Moderate Assistance-helper does LESS THAN HALF the effort. [place] lifts, holds or supports trunk or limbs, but provides less than half the effort. 2-Substantial/Maximal Assistance-helper does MORE THAN HALF the effort. [place] lifts or holds trunk or limbs and provides more than half the effort. 2-Spkbihgmq-iokufh does ALL the effort. Patient does none of the effort to complete the activity. Or, the assistance of 2 or more helpers is required for the patient to complete the activity. If activity was not attempted, code reason: 7-Patient Refused. 9-Not Applicable-not attempted and the patient did not perform the activity before the current illness, exacerbation or injury. 10-Not Attempted due to Environmental Limitations-(lack of equipment, weather restraints, etc.). 88-Not Attempted due to Medical Conditions or Safety Concerns. Roll Left to Right (QC): 2 Sit to Lying (QC): 3 Sit to Stand (QC): 2 Chair/Lin-ai-Vbyhe Xfer(QC): 2 Car Transfer (QC): 88 Gait Training Does the Patient Walk?: No and Walking Goal IS indicated Walk 10 feet (QC): 88 Walk 50 ft with 2 Turns(QC): 88 Walk 150 ft (QC): 88 Walking 10ft/uneven surface-QC: 88 Wheelchair Training Does the Pt Use a Wheelchair?: Yes Distance: 150'x2 Wheel 50 ft with 2 turns (QC): 2 Wheel 150 ft (QC): 1 Type of Wheelchair: Manual Stair Training 1 Step (curb) (QC): 88 4 Steps (QC): 88 12 Steps (QC): 88 Balance Picking up an Object (QC): 88 ADL-Treatment Eating (QC): 5 (After set up and making sure most of meal was on L side, pt able to use regular utensils to eat.) Oral Hygiene (QC): 3 Shower/Bathe Self (QC): 1 Upper Body Dressing (QC): 2 Lower Body Dressing (QC): 2 On/Off Footwear (QC): 2 Toileting Hygiene (QC): 2 Toilet Transfer (QC): 1 Assessment/Plan Assessment and Plan Assess & Plan/Chief Complaint Assessment: 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 02/21/20 transferred to New onset AF OAC DM HTN COPD Dementia Confusion at baseline Vit B12 deficiency Left sided weakness h/o UTI Plan: IRF protocol OAC Cardiology consultation Monitor closely 03/29/20: OAC Monitor AF Dementia at baseline 03/30/20: BM regimen Monitor left sided weakness 03/31/20: Monitor delusions Monitor BP 04/01/20: Bowels moved plenty yesterday hold laxatives Monitor blood pressure 04/02/20: Continue intensive therapy Dementia is severe 04/03/20: Monitor BP IRF protocol 04/04/20: Monitor for falls Monitor BP 04/05/20: Monitor BP Fall risk Confusion monitoring 04/06/20: Monitor for falls 04/07/20: Monitor closely 04/08/20: Family training (1) Acute ischemic right MCA stroke Status: Acute (2) Atrial fibrillation (3) History of UTI (4) Dementia (5) Left-sided weakness (6) COPD (chronic obstructive pulmonary disease) (7) B12 deficiency (8) Altered mental status Status: Acute (9) Diabetes mellitus (10) Hypertension KULDEEP PAYNE DO Apr 08, 2020 05:49
[2020-04-08 05:50] LABS: BILIRUBIN,TOTAL 0.6 MG/DL (0.1-1.0)
[2020-04-08 05:52] LABS: CREATININE SERUM 0.92 MG/DL (0.60-1.30)
[2020-04-08] MEDS: inSUlin ASPART (NovoLOG) 1 UNIT/0.01 ML (CHARGE PER UNIT) SC SCH ×4 (05:52→21:35)
[2020-04-08] MEDS: MULTIVIT W/MINERALS TAB (THERAGRAN M) PO SCH (06:22)
[2020-04-08] MEDS: CYANOCOBALAMIN 1,000 MCG (VITAMIN B-12) TABLET PO SCH (06:22)
[2020-04-08] MEDS: polyethylene glycoL POWDER 17 GM (MIRALAX) PACK PO SCH ×2 (08:11→20:38)
[2020-04-08] MEDS: APIXABAN 5 MG (ELIQUIS) TABLET PO SCH ×2 (08:11→20:38)
[2020-04-08] MEDS: SENNA W/DOCUSATE (SENOKOT S) TABLET PO SCH ×2 (08:11→20:38)
--- NOTE | 2020-04-08 09:00 | Cardiology Progress Note ---
Subjective Date Seen by Provider: Apr 08, 2020 Time Seen by Provider: 08:50 Subjective/Events-last exam Patient sitting up in bed. Pleasantly confused. Review of Systems General: No Chills, No Night Sweats, No Fatigue, No Malaise, No Appetite, No Other HEENT: No Head Aches, No Visual Changes, No Eye Pain, No Ear Pain, No Dysphasia, No Sinus Congestion, No Post Nasal Drip, No Sore Throat, No Other Pulmonary: No Dyspnea, No Cough, No Pleuritic Chest Pain, No Other Cardiovascular: No: Chest Pain, Palpitations, Orthopnea, Paroxysmal Noc. Dyspnea, Edema, Lt Headedness, Other Focused Exam Lactate Level 04/08/20 06:15: Lactic Acid Level 1.00 Lactic Acid Level Objective-Cardiology Exam Last Set of Vital Signs Vital Signs 04/08/20 04/08/20 05:32 09:00 Temp 36.9 Pulse 78 Resp 20 B/P (MAP) 146/71 (96) Pulse Ox 97 O2 Delivery Room Air Capillary Refill : Less Than 3 Seconds I&O Intake and Output 04/08/20 00:00 Intake Total 1340 ml Balance 1340 ml Intake Oral 1340 ml # Voids 3 # Urine Diapers 3 General: Alert, Cooperative, No Acute Distress HEENT: Atraumatic, PERRLA Neck: Supple, No JVD Lungs: Clear to Auscultation, Normal Air Movement Heart: Regular Rate, Normal S1, Normal S2, No Murmurs Abdomen: Normal Bowel Sounds, Soft, No Tenderness Extremities: No Clubbing, No Cyanosis, No Edema, Normal Pulses Skin: No Rashes, No Significant Lesion Neuro: Normal Speech, Cranial Nerves 3-12 NL Psych/Mental Status: Mental Status NL, Mood NL Results Lab Laboratory Tests 04/08/20 05:20 A/P-Cardiology Admission Diagnosis CVA R ICA thrombus PAF COPD Assessment/Plan 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 Maintained on Eliquis. Reported h/o PAF, continue to monitor. Labile blood pressure, losartan was discontinued on April 04, 2020, doing well. Continue to monitor blood pressure Stress test done November 2016 showed LVEF 63% no signif ischemia or infarction. Echo of November 2016 showed LVEF 60-65% COPD, management per medical services DM 2, management per medical services. HLD, maintained on statin CKD 2, continue to monitor renal function Alzheimers dementia PTSD Patient was seen and evaluated with Brandy, examination performed, management plan was discussed, agree with the current scribed note, I made few changes to the note using Italic font Associated site, laying down comfortably, continue to monitor no changes are recommended Clinical Quality Measures DVT/VTE Risk/Contraindication: Risk Factor Score Per Nursin RFS Level Per Nursing on Admit: 4+=Very High BRANDY ROSS Apr 08, 2020 9:00 am JACKIE BHATTI MD Apr 08, 2020 11:53 am
--- NOTE | 2020-04-08 11:02 | Physical Therapy Daily Note ---
PT Daily Note-Current Subjective Pt presents laying supine in bed. Pt agrees to PT. Pt reports no pain. Appearance At conclusion of PT treatment pt is returned to bed where she has access to tray, call button, and all needs have been met. Mental Status Patient Orientation: Person, Confused Transfers SCALE: Activities may be completed with or without assistive devices. 6-Oxeufvnxqb-ebwheay completes the activity by him/herself with no assistance from a helper. 5-Set-up or Clean-up Assistance-helper sets up or cleans up; patient completes activity. [place] assists only prior to or following the activity. 4-Supervision or Touching Assistance-helper provides verbal cues and/or touching/steadying and/or contact guard assistance as patient completes activity. Assistance may be provided throughout the activity or intermittently. 3-Partial/Moderate Assistance-helper does LESS THAN HALF the effort. [place] lifts, holds or supports trunk or limbs, but provides less than half the effort. 2-Substantial/Maximal Assistance-helper does MORE THAN HALF the effort. [place] lifts or holds trunk or limbs and provides more than half the effort. 7-Vpojgvygk-bvlyhx does ALL the effort. Patient does none of the effort to complete the activity. Or, the assistance of 2 or more helpers is required for the patient to complete the activity. If activity was not attempted, code reason: 7-Patient Refused. 9-Not Applicable-not attempted and the patient did not perform the activity before the current illness, exacerbation or injury. 10-Not Attempted due to Environmental Limitations-(lack of equipment, weather restraints, etc.). 88-Not Attempted due to Medical Conditions or Safety Concerns. Sit to Lying (QC): 2 Lying to Sitting/Side of Bed(Q: 1 Sit to Stand (QC): 2 Chair/Tob-qi-Ohqfj Xfer(QC): 1 Toilet Transfer (QC): 1 Pt's incontinence is noticed during sit to stand for dressing in wheelchair; pt is dependent with toilet transfer as she is max assist to stand and then commode was brought to her to replace wheelchair. Weight Bearing Full Weight Bearing Full Weight Bearing Wheelchair Training Does the Pt Use a Wheelchair?: Yes Wheel 50 ft with 2 turns (QC): 1 Wheel 150 ft (QC): 1 Type of Wheelchair: Manual Pt instructed to use BLE to propel wheelchair but is unable to follow these instructions; pt is also repeatedly cued to hold LLE up in air so toes don't get drug or ran over by wheel. Treatments Transfers and family training Assessment Current Status: Poor Progress Pt continues to ignore instructions of pushing off stable surface with sit- >stand and relies on hugging onto therapist. Pt is unable to pivot once standing, this is dependent upon therapist to guide her hips to secondary surface. After toileting pt is dependent on wiping and dressing by OT while PT assist with standing; pt is able to stand for up to 2 min with max support by therapist. Co-treated with OT due to patient's limitations in transfers, mobility, strength, and coordination of UEs and LEs. Patients trained with bed mobility and transfers. He was able to perform supine <-> sit with patient but could not perform a stand pivot transfer without the help of a therapist. They will most likely need a lucille lift and WC if patient is going home. PT Short Term Goals Short Term Goals Time Frame: Apr 05, 2020 Roll Left & Right: 3 Sit to lyin Lying to sitting on side of be: 3 Sit to stand: 3 Chair/mdg-pv-czzdj transfer: 3 Walk 10 feet: 3 PT Gear Lapping Machine Operator Goals Gear Lapping Machine Operator Goals PT Gear Lapping Machine Operator Goals Time Frame: Apr 19, 2020 Roll Left & Right (QC): 3 (Emily) Sit to Lying (QC): 3 (Emily) Lying-Sitting on Side/Bed(QC): 3 Sit to Stand (QC): 3 (Emily) Chair/Kfk-wx-Ynogz Xfer(QC): 3 (Emily) Toilet Transfer (QC): 3 (Emily) Car Transfer (QC): 3 (Emily) Does the Patient Walk: Yes Walk 10 feet (QC): 3 (Emily) Walk 50ft with 2 Turns (QC): 88 Walk 150 ft (QC): 88 Walking 10ft on Uneven Surface: 88 1 Step (curb) (QC): 88 4 Steps (QC): 88 12 Steps (QC): 88 Picking up an Object (QC): 88 Wheel 50 feet with 2 turns (QC: 3 Wheel 150 feet: 3 PT Plan Problem List Problem List: Activity Tolerance, Functional Strength, Safety, Balance, Gait, Transfer, Bed Mobility, ROM Treatment/Plan Treatment Plan: Continue Plan of Care Treatment Plan: Bed Mobility, Education, Functional Activity Yuriy, Functional Strength, Group Therapy, Gait, Safety, Therapeutic Exercise, Transfers Treatment Duration: Apr 19, 2020 Frequency: At least 5 of 7 days/Wk (IRF) Estimated Hrs Per Day: 1.5 hours per day Patient and/or Family Agrees t: Yes Safety Risks/Education Patient Education: Transfer Techniques, Correct Positioning, W/C Management, Safety Issues Teaching Recipient: Patient Teaching Methods: Demonstration, Discussion Response to Teaching: Reinforcement Needed Time/GCodes Time In: 1000 Time Out: 1100 Total Billed Treatment Time: 60 Total Billed Treatment 1 visit FA 60' CONCEPCIÓN CARLOS PT Apr 08, 2020 11:02
--- NOTE | 2020-04-08 11:07 | Occupational Ther Daily Note ---
OT Current Status-Daily Note Subjective Pt was in bed upon arrival. Pt no c/o pain. Pt agreed to therapy. Mental Status/Objective Patient Orientation: Person ADL-Treatment Pt was in bed upon arrival. Pt spouse was in room for family training. Co- treatment with PT ([id number]) skills of two clinicians required for skilled instruction and care due to dependent mobility, cognition, and increase safety concern. Pt required assist x2 from supine to EOB, Mod A x2 from EOB to wheelchair. Pt had assist x2 to stand to place commode under pt to use restroom, AVILES cleansed buttocks while PT stood pt. Pt had Max A with don UE/LE dressing, required verbal cues to find L arm to thread through shirt, AVILES hiked pants/briefs over hips while PT stood pt. Pt transported by wheelchair to educate spouse on bed mobility, Mod A x2 from wheelchair to therapy mat. EOB to supine, pt laid back with upper body on mat and B LE off of mat, assist and verbal cues to lift B LE onto mat. Pt stated felt sick when supine on mat assist x2 to sit up onto EOB, Nursing came in with medication. Transferred from EOB to wheelchair Mod A x2, spouse helped while therapist gave verbal education on how to properly transfer. Pt propelled back to room using feet to guide, require verbal cues to pick L foot up. Pt transferred back into bed Mod A x2, stated wanting a Sprite. Pt call light/phone in reach. All needs met. present in room. Therapy Code Descriptions/Definitions Functional [place] Measure: 0=Not Assessed/NA 4=Minimal Assistance 1=Total Assistance 5=Supervision or Setup 2=Maximal Assistance 6=Modified [place] 3=Moderate Assistance 7=Complete IndependenceSCALE: Activities may be completed with or without assistive devices. 7-Njrhruwugt-xznapwa completes the activity by him/herself with no assistance from a helper. 5-Set-up or Clean-up Assistance-helper sets up or cleans up; patient completes activity. [place] assists only prior to or following the activity. 4-Supervision or Touching Assistance-helper provides verbal cues and/or touching/steadying and/or contact guard assistance as patient completes activity. Assistance may be provided throughout the activity or intermittently. 3-Partial/Moderate Assistance-helper does LESS THAN HALF the effort. [place] lifts, holds or supports trunk or limbs, but provides less than half the effort. 2-Substantial/Maximal Assistance-helper does MORE THAN HALF the effort. [place] lifts or holds trunk or limbs and provides more than half the effort. 0-Oqnjmdste-dbkjtl does ALL the effort. Patient does none of the effort to complete the activity. Or, the assistance of 2 or more helpers is required for the patient to complete the activity. If activity was not attempted, code reason: 7-Patient Refused. 9-Not Applicable-not attempted and the patient did not perform the activity before the current illness, exacerbation or injury. 10-Not Attempted due to Environmental Limitations-(lack of equipment, weather restraints, etc.). 88-Not Attempted due to Medical Conditions or Safety Concerns. Upper Body Dressing (QC): 2 Lower Body Dressing (QC): 1 On/Off Footwear: 2 Toileting Hygiene (QC): 1 Toilet Transfer (QC): 1 Education OT Patient Education: Purpose of tx/functional activities, Transfer techniques, W/C management Teaching Recipient: Patient, Family Teaching Methods: Demonstration, Discussion Response to Teaching: Verbalize Understanding, Return Demonstration, Reinforcement Needed OT Short Term Goals Short Term Goals Time Frame: Apr 05, 2020 Eatin Oral hygiene: 4 Toileting hygiene: 2 Shower/bathe self: 2 Upper body dressin Lower body dressin Putting on/taking off footwear: 2 OT Clam Shucking Machine Tender Goals Nursing Home Goals Time Frame: Apr 12, 2020 Eating (QC): 6 Oral Hygiene (QC): 6 Toileting Hygiene (QC): 3 Shower/Bathe Self (QC): 3 Upper Body Dressing (QC): 5 Lower Body Dressing (QC): 3 On/Off Footwear (QC): 3 Additional Goals: 1-Demonstrate ADL Tasks, 2-Verbalize Understanding, 3- ImproveStrength/Yuriy 1=Demonstrate adherence to instructed precautions during ADL tasks. 2=Patient will verbalize/demonstrate understanding of assistive devices/modifications for ADL. 3=Patient will improve strength/tolerance for activity to enable patient to perform ADL's. OT Education/Plan Problem List/Assessment Assessment: Decreased Activ Tolerance, Decreased Safety Aware, Decreased UE Strength, Impaired Cognition, Impaired Funct Balance, Impaired I ADL's, Impaired Self-Care Skills Discharge Recommendations Plan/Recommendations: Continue POC Treatment Plan/Plan of Care Patient would benefit from OT for education, treatment and training to promote independence in ADL's, mobility, safety and/or upper extremity function for ADL's. Plan of Care: ADL Retraining, Caregiver Training, Cognitive Retraining, Concurrent Therapy, Functional Mobility, Group Exercise/Act as Ind, Orthotic Fitting/Training, UE Funct Exercise/Act, UE Neuromus Re-Ed/Coord, W/C Management Training Treatment Duration: Apr 12, 2020 Frequency: At least 5 of 7 days/Wk (IRF) Estimated Hrs Per Day: 1.5 hours per day Agreement: Yes Rehab Potential: Guarded Time/GCodes Start Time: 10:00 Stop Time: 11:00 Total Time Billed (hr/min): 60 Billed Treatment Time 1 visit- 2 ADL (30 mins), FA 2 (30 mins) co--treat with PT [id number] MARKUS QUIGLEY Apr 08, 2020 11:07
--- NOTE | 2020-04-08 11:18 | Progress Note ---
FADY COCHRAN MED STUDENT 04/08/20 1118: Progress Note S: No acute events overnight. Had a bowel movement this morning. She reports some nausea but no other symptoms at this time. No vomiting or diarrhea. O: Vitals stable CBC values all increased prompting lactic acid and procalcitonin to be drawn. Both came back normal No other significant lab abnormalities Physical exam: comfortable appearing. CTAB, RRR, no abd TTP A/P: Afebrile, normal procalcitonin and lactic acid so leukocytosis likely not related to any source of infection. Will continue to monitor symptoms or vitals was in room for family training today Patient has some baseline confusion that requires greater assist with therapy and likely will need more advanced care at discharge if family is unable to take care of patient at home CHERYL PAYNE DO 04/09/20 0526: Supervisory-Addendum Brief Verification & Attestation Participated in pt care: history, MDM, physical Personally performed: exam, history, MDM, supervision of care Care discussed with: Medical Student Procedures: n/a Results interpretation: Verified all documentation Verification and Attestation of Medical Student E/M Service A medical student performed and documented this service in my presence. I reviewed and verified all information documented by the medical student and made modifications to such information, when appropriate. I personally performed the physical exam and medical decision making. Cheryl Payne, Apr 09, 2020,05:26 FADY COCHRAN MED STUDENT Apr 08, 2020 11:18 CHERYL PAYNE DO Apr 09, 2020 05:26
--- NOTE | 2020-04-08 13:10 | Speech Therapy Daily Note ---
Speech Daily Progress Note Subjective Date Seen by Provider: Apr 08, 2020 Time Seen by Provider: 00:30 Patient was resting in her room following OT and PT session. The patient was not feeling well as she had gotten sick during her therapy. Patient was able to participate reporting her stomach felt better. was present for the session. Objective Patient completed safety awareness cards "what's wrong with this scene?" with 60% accuracy with 25% cues/repetitions. Assessment Assessment Current Status: Fair Progress Treatment Plan Continue Plan of Care Speech Short Term Goals Short Term Goals Short Term Goals 1) Patient will complete memory tasks at 75% or greater. 2) Patient will complete safety awareness tasks at 75% or greater. 3) Patient will complete problem solving tasks at 75% or greater. Speech [place] Supervisor Goals [place] Supervisor Goals Patient will improve cognitive-communication necessary for safety and daily lorena ing tasks with minimal assist. Speech-Plan Patient/Family Goals Patient/Family Goals: Patient plans on returning to her home where she lives with her . Treatment Plan Speech Therapy Treatment Plan: Continue Plan of Care Treatment Duration: Apr 10, 2020 Frequency: 4 times per week (Patient will receive skilled ST 4-5x per week) Estimated Hrs Per Day: .5 hour per day Rehab Potential: Guarded Barriers to Learning: Patient's Alzheimer's and recent CVA Pt/Family Agrees to Plan: Yes Safety Risks/Education Teaching Recipient: Patient, Significant Other Teaching Methods: Demonstration, Discussion Response to Teaching: Verbalize Understanding, Return Demonstration Education Topics Provided: Continued safety within her ARU and upon her return home Time Speech Therapy Time In: 11:00 Speech Therapy Time Out: 11:30 Total Billed Time: 30 Billed Treatment Time ABHIJEET Sanchez [facility] Apr 08, 2020 13:10
--- NOTE | 2020-04-08 14:41 | Therapy Group Daily Note ---
Therapy Daily Group Note Patient Education Topic Other List Below (memory) Session Ratio (pt:therapist): 4:1 Goal of Session: Memory Strategies Goal Met for this Session: Yes Pt Benefit of Group: Contributions to Others, Improved Cognition, Recognition of Peers, Socialization Other/Notes Pt transported via w/c to [facility] for OT/PT group. Group consisted in introductions (name, place living, favorite [place] memory), socialization, memory activity and STM education. Pt introduced self appropriately and actively listened to peers. Pt contributed to peer conversations and topics discussed in group. Pt able to demonstrate understanding of educational topic by giving personal strategies. Pt participated in memory activity appr opriately, required assistance to initiate task and choose answers. After session, pt lying in bed with call light/phone in reach. All needs met in room. Start Time: 13:00 Stop Time: 14:15 Total Billed Treatment Time: 75 Total Billed Treatment 1-GRP MARKUS QUIGLEY Apr 08, 2020 14:41
[2020-04-08 17:37] VITALS: BP 113/52
[2020-04-09 05:36] VITALS: BP 145/64
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
[2020-04-09] MEDS: inSUlin ASPART (NovoLOG) 1 UNIT/0.01 ML (CHARGE PER UNIT) SC SCH ×4 (06:27→20:41)
[2020-04-09] MEDS: MULTIVIT W/MINERALS TAB (THERAGRAN M) PO SCH (06:27)
[2020-04-09] MEDS: CYANOCOBALAMIN 1,000 MCG (VITAMIN B-12) TABLET PO SCH (06:27)
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
--- NOTE | 2020-04-09 08:56 | Cardiology Progress Note ---
Subjective Date Seen by Provider: Apr 09, 2020 Time Seen by Provider: 08:20 Subjective/Events-last exam Patient with PT. Denies any chest pain. Focused Exam Lactate Level 04/08/20 06:15: Lactic Acid Level 1.00 Objective-Cardiology Exam Last Set of Vital Signs Vital Signs 04/09/20 05:36 Temp 36.8 Pulse 87 Resp 16 B/P (MAP) 145/64 (91) Pulse Ox 96 O2 Delivery Room Air Capillary Refill : Less Than 3 Seconds I&O Intake and Output 04/09/20 00:00 Intake Total 920 ml Balance 920 ml Intake Oral 920 ml # Urine Diapers 7 # Bowel Movements 4 General: Alert, Cooperative, No Acute Distress HEENT: Atraumatic, PERRLA Neck: Supple, No JVD Lungs: Clear to Auscultation, Normal Air Movement Heart: Regular Rate, Normal S1, Normal S2, No Murmurs Abdomen: Normal Bowel Sounds, Soft, No Tenderness Extremities: No Clubbing, No Cyanosis, No Edema, Normal Pulses Skin: No Rashes, No Significant Lesion Neuro: Normal Speech, Cranial Nerves 3-12 NL Psych/Mental Status: Mental Status NL, Mood NL A/P-Cardiology Admission Diagnosis CVA R ICA thrombus PAF COPD Assessment/Plan S/P right MCA CVA with left-sided weakness d/t R ICA thrombus per [facility] records . Maintained on Eliquis. Reported h/o PAF, continue to monitor. Labile blood pressure, losartan was discontinued on April 04, 2020, doing well. Continue to monitor blood pressure Stress test done November 2016 showed LVEF 63% no signif ischemia or infarction. Echo of November 2016 showed LVEF 60-65% COPD, management per medical services DM 2, management per medical services. HLD, maintained on statin CKD 2, continue to monitor renal function Alzheimers dementia PTSD Patient was seen and evaluated with Brandy, examination performed, management plan was discussed, agree with the current scribed note, I made few changes to the note using Italic font Clinical Quality Measures DVT/VTE Risk/Contraindication: Risk Factor Score Per Nursin RFS Level Per Nursing on Admit: 4+=Very High BRANDY ROSS Apr 09, 2020 8:56 am JACKIE BHATTI MD Apr 09, 2020 9:20 am
[2020-04-09] MEDS: APIXABAN 5 MG (ELIQUIS) TABLET PO SCH ×2 (09:08→20:39)
[2020-04-09] MEDS: polyethylene glycoL POWDER 17 GM (MIRALAX) PACK PO SCH ×2 (09:13→19:43)
[2020-04-09] MEDS: SENNA W/DOCUSATE (SENOKOT S) TABLET PO SCH ×2 (09:13→19:43)
--- NOTE | 2020-04-09 11:57 | Physical Therapy Daily Note ---
PT Daily Note-Current Subjective Pt presents laying supine in bed. Pt agrees to PT. Pt reports no pain. Appearance At conclusion of PT session pt remains laying supine in bed with access to tray, call button, and all needs have been met. Mental Status Patient Orientation: Person, Confused Transfers SCALE: Activities may be completed with or without assistive devices. 6-Cnepmfkxam-wxvhfgf completes the activity by him/herself with no assistance from a helper. 5-Set-up or Clean-up Assistance-helper sets up or cleans up; patient completes activity. [place] assists only prior to or following the activity. 4-Supervision or Touching Assistance-helper provides verbal cues and/or touching/steadying and/or contact guard assistance as patient completes activity. Assistance may be provided throughout the activity or intermittently. 3-Partial/Moderate Assistance-helper does LESS THAN HALF the effort. [place] lifts, holds or supports trunk or limbs, but provides less than half the effort. 2-Substantial/Maximal Assistance-helper does MORE THAN HALF the effort. [place] lifts or holds trunk or limbs and provides more than half the effort. 0-Cbojyshdz-mzwtgg does ALL the effort. Patient does none of the effort to complete the activity. Or, the assistance of 2 or more helpers is required for the patient to complete the activity. If activity was not attempted, code reason: 7-Patient Refused. 9-Not Applicable-not attempted and the patient did not perform the activity before the current illness, exacerbation or injury. 10-Not Attempted due to Environmental Limitations-(lack of equipment, weather restraints, etc.). 88-Not Attempted due to Medical Conditions or Safety Concerns. Weight Bearing Full Weight Bearing Full Weight Bearing Exercises Supine Ex: Ankle pumps, Heel Slides (RLE x10), Short Arc Quads Supine Reps: 20 Treatments LE strengthening Assessment Current Status: Poor Progress Pt is more cooperative to participate in therapy as compared to this morning. Pt does require constant cuing on movements in order to focus attention on exercises, otherwise she forgets what task we are completing. PT Short Term Goals Short Term Goals Time Frame: Apr 05, 2020 Roll Left & Right: 3 Sit to lyin Lying to sitting on side of be: 3 Sit to stand: 3 Chair/fjy-mx-wlgfz transfer: 3 Walk 10 feet: 3 PT Fdc Goals Private Security Guard Goals PT Private Security Guard Goals Time Frame: Apr 19, 2020 Roll Left & Right (QC): 3 (Emily) Sit to Lying (QC): 3 (Emily) Lying-Sitting on Side/Bed(QC): 3 Sit to Stand (QC): 3 (mEily) Chair/Pip-[place] Xfer(QC): 3 (Emily) Toilet Transfer (QC): 3 (Emily) Car Transfer (QC): 3 (Emily) Does the Patient Walk: Yes Walk 10 feet (QC): 3 (Emily) Walk 50ft with 2 Turns (QC): 88 Walk 150 ft (QC): 88 Walking 10ft on Uneven Surface: 88 1 Step (curb) (QC): 88 4 Steps (QC): 88 12 Steps (QC): 88 Picking up an Object (QC): 88 Wheel 50 feet with 2 turns (QC: 3 Wheel 150 feet: 3 PT Plan Problem List Problem List: Activity Tolerance, Functional Strength, Safety, Balance, Gait, Transfer, Bed Mobility, ROM Treatment/Plan Treatment Plan: Continue Plan of Care Treatment Plan: Bed Mobility, Education, Functional Activity Yuriy, Functional Strength, Group Therapy, Gait, Safety, Therapeutic Exercise, Transfers Treatment Duration: Apr 19, 2020 Frequency: At least 5 of 7 days/Wk (IRF) Estimated Hrs Per Day: 1.5 hours per day Patient and/or Family Agrees t: Yes Safety Risks/Education Patient Education: Correct Positioning, Safety Issues Teaching Recipient: Patient Teaching Methods: Demonstration, Discussion Response to Teaching: Reinforcement Needed Time/GCodes Time In: 1030 Time Out: 1050 Total Billed Treatment Time: 10 Total Billed Treatment 1 visit EX CONCEPCIÓN MORE PT Apr 09, 2020 11:57
--- NOTE | 2020-04-09 14:06 | Physical Therapy Progress Note ---
Therapy Progress Note Pt presents supine in bed. Pt refuses to participate in therapy. Therapist spends 10 min encouraging patient and educating her on the benefits of physical therapy as well as her specific needs for therapy. Pt tells therapist to "shut up" and continues to refuse therapy. CONCEPCIÓN CARLOS PT Apr 09, 2020 14:06
[2020-04-09 16:20] VITALS: BP 117/56
--- NOTE | 2020-04-09 16:41 | NUR ---
Spiritual care visit by ISAAK Martinez.
[2020-04-10] MEDS: CYANOCOBALAMIN 1,000 MCG (VITAMIN B-12) TABLET PO SCH (05:51)
[2020-04-10] MEDS: MULTIVIT W/MINERALS TAB (THERAGRAN M) PO SCH (05:51)
--- NOTE | 2020-04-10 05:51 | PM&R Progress Note ---
Subjective HPI/CC On Admission Date Seen by Provider: Apr 10, 2020 Time Seen by Provider: 09:00 Subjective/Events-last exam 04/10/20: DC is planned for soon Could go home and will try and see what his needs are whether its a lucille lift or so forth. 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 04/09/20: Family came in yesterday and trained It appears she will be going home with family and they have plenty of help Discharge is planned 04/08/20: Family is here for training WBC elevated at 12 but procalcitonin and lactic acid were both normal and afebrile Overall she is doing very well but dementia precludes anything but a poor prognosis 04/07/20: No issues In good mood 04/06/20: No falls but she had behaviors that increase risk Dementia is significant No pain reported 04/05/20: Fairly cranky with nurse aid today Blood sugar 122 Overall doing well 04/04/20: Significant dementia continues Overall doing pretty well otherwise Bowels are moving Eating and drinking well No falls 04/03/20: Bowels were moving earlier today May need a suppository if they are not evacuating Holding Cozaar due to mild low BP Overall doing pretty well but dementia is significant 04/02/20: Pt doing pretty well Dementia precludes anything but a poor prognosis buttermaker Will work on disposition Has no complaints 04/01/20: Bowels moved 4x yesterday after complete evacuation No pain is reported Labs are okay 03/31/20: Monitoring BP No bleed issues from OAC AF rate controlled BM x 4 after suppository Delusions at times 03/30/20: Doing well Leans to the left Suppository will be required since no BM for several days No changes otherwise Patient settled in to IRF Baseline dementia and labile changes to behaviors is at baseline No pain reported SLUMS cannot be performed due to severity of dementia Left sided weakness is profound No falls Checked meds and labs Conferred with RN Reviewed therapy notes Review of Systems General: Fatigue Neurological: Confusion Focused Exam Lactate Level Objective Exam Vital Signs Vital Signs Date Time Temp Pulse Resp B/P (MAP) Pulse Ox O2 Delivery O2 Flow Rate FiO2 04/11/20 09:17 Room Air 04/11/20 06:04 36.3 74 18 148/64 (92) 94 Capillary Refill : Less Than 3 Seconds General Appearance: No Apparent Distress, WD/WN, Chronically ill HEENT: PERRL/EOMI, Normal ENT Inspection, Pharynx Normal Neck: Full Range of Motion, Normal Inspection, Non Tender, Supple, Carotid Bruit Respiratory: Chest Non Tender, Lungs Clear, Normal Breath Sounds, No Accessory Muscle Use, No Respiratory Distress Cardiovascular: No Edema, No Gallop, No JVD, No Murmur, Normal Peripheral Pulses, Irregularly Irregular Gastrointestinal: Normal Bowel Sounds, No Organomegaly, No Pulsatile Mass, Non Tender, Soft Back: Normal Inspection, No CVA Tenderness, No Vertebral Tenderness Extremity: Normal Capillary Refill, Normal Inspection, Normal Range of Motion, Non Tender, No Calf Tenderness, No Pedal Edema Neurologic/Psychiatric: Alert, No Motor/Sensory Deficits, Normal 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 FIM Transfers Therapy Code Descriptions/Definitions Functional [place] Measure: 0=Not Assessed/NA 4=Minimal Assistance 1=Total Assistance 5=Supervision or Setup 2=Maximal Assistance 6=Modified [place] 3=Moderate Assistance 7=Complete IndependenceSCALE: Activities may be completed with or without assistive devices. 6-Aryccpouym-jjuyeua completes the activity by him/herself with no assistance fr om a helper. 5-Set-up or Clean-up Assistance-helper sets up or cleans up; patient completes activity. [place] assists only prior to or following the activity. 4-Supervision or Touching Assistance-helper provides verbal cues and/or touching/steadying and/or contact guard assistance as patient completes activity. Assistance may be provided throughout the activity or intermittently. 3-Partial/Moderate Assistance-helper does LESS THAN HALF the effort. [place] lifts, holds or supports trunk or limbs, but provides less than half the effort. 2-Substantial/Maximal Assistance-helper does MORE THAN HALF the effort. [place] lifts or holds trunk or limbs and provides more than half the effort. 2-Morqgoaab-meimsu does ALL the effort. Patient does none of the effort to complete the activity. Or, the assistance of 2 or more helpers is required for the patient to complete the activity. If activity was not attempted, code reason: 7-Patient Refused. 9-Not Applicable-not attempted and the patient did not perform the activity before the current illness, exacerbation or injury. 10-Not Attempted due to Environmental Limitations-(lack of equipment, weather restraints, etc.). 88-Not Attempted due to Medical Conditions or Safety Concerns. Roll Left to Right (QC): 2 Sit to Lying (QC): 2 Sit to Stand (QC): 2 Chair/Kwv-aw-[place]az[place] Xfer(QC): 2 Car Transfer (QC): 88 Gait Training Does the Patient Walk?: No and Walking Goal IS indicated Walk 10 feet (QC): 88 Walk 50 ft with 2 Turns(QC): 88 Walk 150 ft (QC): 88 Walking 10ft/uneven surface-QC: 88 Wheelchair Training Does the Pt Use a Wheelchair?: Yes Distance: 150'x2 Wheel 50 ft with 2 turns (QC): 1 Wheel 150 ft (QC): 1 Type of Wheelchair: Manual Stair Training 1 Step (curb) (QC): 88 4 Steps (QC): 88 12 Steps (QC): 88 Balance Picking up an Object (QC): 88 ADL-Treatment Eating (QC): 4 Oral Hygiene (QC): 4 Shower/Bathe Self (QC): 1 Upper Body Dressing (QC): 3 Lower Body Dressing (QC): 3 On/Off Footwear (QC): 2 Toileting Hygiene (QC): 1 Toilet Transfer (QC): 1 Assessment/Plan Assessment and Plan Assess & Plan/Chief Complaint Assessment: 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 02/21/20 transferred to New onset AF OAC DM HTN COPD Dementia Confusion at baseline Vit B12 deficiency Left sided weakness h/o UTI Plan: IRF protocol OAC Cardiology consultation Monitor closely 03/29/20: OAC Monitor AF Dementia at baseline 03/30/20: BM regimen Monitor left sided weakness 03/31/20: Monitor delusions Monitor BP 04/01/20: Bowels moved plenty yesterday hold laxatives Monitor blood pressure 04/02/20: Continue intensive therapy Dementia is severe 04/03/20: Monitor BP IRF protocol 04/04/20: Monitor for falls Monitor BP 04/05/20: Monitor BP Fall risk Confusion monitoring 04/06/20: Monitor for falls 04/07/20: Monitor closely 04/08/20: Family training 04/09/20: DC home with HH with family soon 04/10/20: DC home later this week If fails at home will need NH (1) Acute ischemic right MCA stroke Status: Acute (2) Atrial fibrillation (3) History of UTI (4) Dementia (5) Left-sided weakness (6) COPD (chronic obstructive pulmonary disease) (7) B12 deficiency (8) Altered mental status Status: Acute (9) Diabetes mellitus (10) Hypertension KULDEEP PAYNE DO Apr 10, 2020 05:51
[2020-04-10] MEDS: inSUlin ASPART (NovoLOG) 1 UNIT/0.01 ML (CHARGE PER UNIT) SC SCH ×4 (05:54→20:21)
[2020-04-10 06:01] VITALS: BP 140/62
[2020-04-10] MEDS: APIXABAN 5 MG (ELIQUIS) TABLET PO SCH ×2 (08:14→20:08)
[2020-04-10] MEDS: SENNA W/DOCUSATE (SENOKOT S) TABLET PO SCH ×2 (08:14→20:08)
--- NOTE | 2020-04-10 08:54 | Physical Therapy Daily Note ---
PT Daily Note-Current Subjective Pt confused, pleasant at times , smiles but largely uncooperative. No c/o pain . States her full name but then states we are in OP,Ks, . Attempted to reorient pt. to place time and situation Pain Location: No Pain Reported Mental Status Patient Orientation: Confused Transfers SCALE: Activities may be completed with or without assistive devices. 7-Tfprfxishi-foyuhql completes the activity by him/herself with no assistance from a helper. 5-Set-up or Clean-up Assistance-helper sets up or cleans up; patient completes activity. [place] assists only prior to or following the activity. 4-Supervision or Touching Assistance-helper provides verbal cues and/or touching/steadying and/or contact guard assistance as patient completes activity. Assistance may be provided throughout the activity or intermittently. 3-Partial/Moderate Assistance-helper does LESS THAN HALF the effort. [place] lifts, holds or supports trunk or limbs, but provides less than half the effort. 2-Substantial/Maximal Assistance-helper does MORE THAN HALF the effort. [place] lifts or holds trunk or limbs and provides more than half the effort. 2-Ctfiywlxh-duxfvg does ALL the effort. Patient does none of the effort to complete the activity. Or, the assistance of 2 or more helpers is required for the patient to complete the activity. If activity was not attempted, code reason: 7-Patient Refused. 9-Not Applicable-not attempted and the patient did not perform the activity before the current illness, exacerbation or injury. 10-Not Attempted due to Environmental Limitations-(lack of equipment, weather restraints, etc.). 88-Not Attempted due to Medical Conditions or Safety Concerns. Roll Left & Right (QC): 4 Sit to Lying (QC): 3 Lying to Sitting/Side of Bed(Q: 3 Sit to Stand (QC): 3 Chair/Kib-dr-Fdrwv Xfer(QC): 3 Toilet Transfer (QC): 3 This GRAIN ELEVATOR OPERATOR believes pt. can/could do these functional TRFs but is too confused and uncooperative to do so. Off and on during TRFs pt. does show strength and coord to complete the task but does not consistently Weight Bearing Full Weight Bearing Full Weight Bearing Gait Training side steps only for TRFs SPT with min to mod assist and much time and cajoling to initiate , PT OT co Rx, with OT much more familiar with managing pts. TRFs and what verbage might help motivate her Wheelchair Training Does the Pt Use a Wheelchair?: Yes Wheel 50 ft with 2 turns (QC): 2 Type of Wheelchair: Manual again PT OT co Rx with OT explaining and encouraging hand placement and use of feet to propel chair etc Exercises Seated Therapy Exercises: Sit to stand, Long arc quads Seated Reps: 8 Treatments co Rx with OT from 8-9 am , 60 mins for sit to stands TRFs, SPT , w/c mobility and sit to stands in // bars. Assessment Current Status: Poor Progress no noted improvement in function, apparently states during training that he can manage her at home well PT Short Term Goals Short Term Goals Time Frame: Apr 05, 2020 Roll Left & Right: 3 Sit to lyin Lying to sitting on side of be: 3 Sit to stand: 3 Chair/jex-fq-tprhj transfer: 3 Walk 10 feet: 3 PT Vtc Technician Goals Jail Goals PT Jail Goals Time Frame: Apr 19, 2020 Roll Left & Right (QC): 3 (Emily) Sit to Lying (QC): 3 (Emily) Lying-Sitting on Side/Bed(QC): 3 Sit to Stand (QC): 3 (Emily) Chair/Isx-ww-Hmskn Xfer(QC): 3 (Emily) Toilet Transfer (QC): 3 (Emily) Car Transfer (QC): 3 (Emily) Does the Patient Walk: Yes Walk 10 feet (QC): 3 (Emily) Walk 50ft with 2 Turns (QC): 88 Walk 150 ft (QC): 88 Walking 10ft on Uneven Surface: 88 1 Step (curb) (QC): 88 4 Steps (QC): 88 12 Steps (QC): 88 Picking up an Object (QC): 88 Wheel 50 feet with 2 turns (QC: 3 Wheel 150 feet: 3 PT Plan Treatment/Plan Treatment Plan: Continue Plan of Care Treatment Plan: Bed Mobility, Education, Functional Activity Yuriy, Functional Strength, Group Therapy, Gait, Safety, Therapeutic Exercise, Transfers Treatment Duration: Apr 19, 2020 Frequency: At least 5 of 7 days/Wk (IRF) Estimated Hrs Per Day: 1.5 hours per day Patient and/or Family Agrees t: Yes Safety Risks/Education Patient Education: Transfer Techniques, Correct Positioning, Safety Issues Teaching Recipient: Patient Response to Teaching: Unable to Return Demonstration, Unable to Comprehend Time/GCodes Time In: 800 Time Out: 900 Total Billed Treatment Time: 60 Total Billed Treatment 1,FA60m co Rx KAYCE GUIDO GRAIN ELEVATOR OPERATOR Apr 10, 2020 08:54
--- NOTE | 2020-04-10 09:05 | Occupational Ther Daily Note ---
OT Current Status-Daily Note Subjective Pt alert, lying in bed. Pt agrees to participate in therapy. Pt will have conversations that are sporadic and thinks she is talking to different people and in different places. Mental Status/Objective Patient Orientation: Person, Confused ADL-Treatment Pt required set up to for breakfast then was able to use regular utensils to eat. Pt incontinent of bladder and bowel throughout session. Pt requires time to process task, when pt feels rushed she gets agitated (physical and verbal) and refusal to complete task. Min A for supine to EOB with persuasion and increased time. Min A for SPT from EOB to w/c. Pt transported to large shower room to complete shower. Pt's is impulsive with movements and is unsafe. Pt transferred to/from bathing chair to w/c with Min A x1 person. With verbal cues to initiate shower, pt able to cleanse B LE, did cross LE over knee to wash feet with CGA for safety. Pt bathed all other areas except dutch area/buttocks. CGA during shower due to impulsivity. Assist to don/doff socks, max A. Assist x2 to hike pants over hips. Pt was transported back to bedroom to use restroom. Co- treatment with PT ([id number]), skills of two clinicians required for skilled instruction and care due to dependent mobility, cognition, and increase safety concern. PT working on transfers, standing and w/c mobility. OT working on ADLs, UE positioning during standing and transfers. Pt transferred from w/c to commode Min A x1 person, while second person managed clothing. Pt required reminder that she was on BSC for bowel movement. Sit to stand x2 off commode while AVILES cleansed buttocks area and hiked briefs over hips. Therapy Code Descriptions/Definitions Functional [place] Measure: 0=Not Assessed/NA 4=Minimal Assistance 1=Total Assistance 5=Supervision or Setup 2=Maximal Assistance 6=Modified [place] 3=Moderate Assistance 7=Complete IndependenceSCALE: Activities may be completed with or without assistive devices. 7-Ttcaxxgkuj-ikcgeuw completes the activity by him/herself with no assistance from a helper. 5-Set-up or Clean-up Assistance-helper sets up or cleans up; patient completes activity. [place] assists only prior to or following the activity. 4-Supervision or Touching Assistance-helper provides verbal cues and/or touching/steadying and/or contact guard assistance as patient completes activity. Assistance may be provided throughout the activity or intermittently. 3-Partial/Moderate Assistance-helper does LESS THAN HALF the effort. [place] lifts, holds or supports trunk or limbs, but provides less than half the effort. 2-Substantial/Maximal Assistance-helper does MORE THAN HALF the effort. [place] lifts or holds trunk or limbs and provides more than half the effort. 4-Vqtwtruok-fduzwq does ALL the effort. Patient does none of the effort to complete the activity. Or, the assistance of 2 or more helpers is required for the patient to complete the activity. If activity was not attempted, code reason: 7-Patient Refused. 9-Not Applicable-not attempted and the patient did not perform the activity before the current illness, exacerbation or injury. 10-Not Attempted due to Environmental Limitations-(lack of equipment, weather restraints, etc.). 88-Not Attempted due to Medical Conditions or Safety Concerns. Eating (QC): 5 Bathing Location: L Arm, R Arm, L Upper Leg, R Upper Leg, L Lower Leg (including foot), R Lower Leg (including foot), Chest, Abdomen Shower/Bathe Self (QC): 2 Lower Body Dressing (QC): 1 On/Off Footwear: 2 Toileting Hygiene (QC): 1 Toilet Transfer (QC): 2 Other Treatment Pt transferred x2 into w/c with verbal cues to reach for w/c, propelled to therapy gym using feet to guide with reminder cues to keep L foot from getting caught under wheels. Pt required max encouragement to stand at parallel bars one time. See PT notes for progress. Pt then refused to stand any more. Pt transported back to room via w/c. Initially pt refused to move out of w/c. Pt is unsafe in w/c due to impulsiveness. Given increased time, pt decided to lay down in bed. Min A for SPT then min A for EOB to supine. Assist x2 to scoot up in bed. Pt is inconsistent with all skills. Pt has demonstrated that she has the capability to stand and transfer with min A. Though at other times requires max A x2 for all tasks. After session, pt lying in bed with call light/phone in reach. Safety measures in place. All needs met in room. OT Short Term Goals Short Term Goals Time Frame: Apr 05, 2020 Eatin Oral hygiene: 4 Toileting hygiene: 2 Shower/bathe self: 2 Upper body dressin Lower body dressin Putting on/taking off footwear: 2 OT Group Home Goals Group Home Goals Time Frame: Apr 12, 2020 Eating (QC): 6 Oral Hygiene (QC): 6 Toileting Hygiene (QC): 3 Shower/Bathe Self (QC): 3 Upper Body Dressing (QC): 5 Lower Body Dressing (QC): 3 On/Off Footwear (QC): 3 Additional Goals: 1-Demonstrate ADL Tasks, 2-Verbalize Understanding, 3- ImproveStrength/Yuriy 1=Demonstrate adherence to instructed precautions during ADL tasks. 2=Patient will verbalize/demonstrate understanding of assistive devices/modifications for ADL. 3=Patient will improve strength/tolerance for activity to enable patient to perform ADL's. OT Education/Plan Problem List/Assessment Assessment: Decreased Activ Tolerance, Decreased Safety Aware, Decreased UE Strength, Dependent Transfers, Impaired Bed Mobility, Impaired Cognition, Impaired Coordination, Impaired Funct Balance, Impaired I ADL's, Impaired Self- Care Skills, Restricted Funct UE ROM Discharge Recommendations Plan/Recommendations: Continue POC Treatment Plan/Plan of Care Patient would benefit from OT for education, treatment and training to promote independence in ADL's, mobility, safety and/or upper extremity function for ADL's. Plan of Care: ADL Retraining, Caregiver Training, Cognitive Retraining, Concurrent Therapy, Functional Mobility, Group Exercise/Act as Ind, Orthotic Fitting/Training, UE Funct Exercise/Act, UE Neuromus Re-Ed/Coord, W/C Management Training Treatment Duration: Apr 12, 2020 Frequency: At least 5 of 7 days/Wk (IRF) Estimated Hrs Per Day: 1.5 hours per day Agreement: Yes Rehab Potential: Guarded Time/GCodes Start Time: 07:15 Stop Time: 09:00 Total Time Billed (hr/min): 105 Billed Treatment Time 1 visit-ADL 3 (45 min) FA 4 (60 min) co-treat with PT 60 min, individual 45 min ([id number]) MARKUS QUIGLEY Apr 10, 2020 09:05
[2020-04-10] MEDS: polyethylene glycoL POWDER 17 GM (MIRALAX) PACK PO SCH ×2 (09:36→19:36)
[2020-04-10 10:30] VITALS: BP 140/62
--- NOTE | 2020-04-10 10:30 | NUR ---
Patient discharged via wheelchair to private vehicle, accompanied by staff and handed off to son-in-law. Personal items, medications, and discharge instructions sent with patient. Addendum: 04/10/20 at 1103 by RADHA BEAULIEU RN Strike: Wrong patient
--- NOTE | 2020-04-10 10:44 | Speech Therapy Daily Note ---
Speech Daily Progress Note Subjective Date Seen by Provider: Apr 10, 2020 Time Seen by Provider: 00:30 Patient was resting in her bed following her PT and OT session. She states "they really worked me over". Objective Patient completed questions related to her orientation to date, time, place and procedures with 60% given maximum visual and/or verbal cues. Assessment Assessment Current Status: Fair Progress Treatment Plan Continue Plan of Care Speech Short Term Goals Short Term Goals Short Term Goals 1) Patient will complete memory tasks at 75% or greater. 2) Patient will complete safety awareness tasks at 75% or greater. 3) Patient will complete problem solving tasks at 75% or greater. Speech Air Conditioning Manager Goals Air Conditioning Manager Goals Patient will improve cognitive-communication necessary for safety and daily living tasks with minimal assist. Speech-Plan Patient/Family Goals Patient/Family Goals: Patient plans on returning to her home where she lives with her . Treatment Plan Speech Therapy Treatment Plan: Continue Plan of Care Treatment Duration: Apr 17, 2020 Frequency: 4 times per week (Patient will receive skilled ST 4-5x per week) Estimated Hrs Per Day: .5 hour per day Rehab Potential: Guarded Barriers to Learning: Patient's Alzhiemer's, recent CVA Pt/Family Agrees to Plan: Yes Safety Risks/Education Teaching Recipient: Patient Teaching Methods: Demonstration, Discussion Response to Teaching: Verbalize Understanding, Return Demonstration Education Topics Provided: Continued safety within her room Time Speech Therapy Time In: 09:00 Speech Therapy Time Out: 09:30 Total Billed Time: 30 Billed Treatment Time 1, LORIN Quintanilla Apr 10, 2020 10:44
--- NOTE | 2020-04-10 12:31 | Cardiology Progress Note ---
Subjective Time Seen by Provider: 08:15 Subjective/Events-last exam Patient is sitting up in bed, no new complaints. No chest pain or dyspnea. Review of Systems General: No Chills, No Night Sweats, No Fatigue, No Malaise, No Appetite, No Other HEENT: No Head Aches, No Visual Changes, No Eye Pain, No Ear Pain, No Dysphasia, No Sinus Congestion, No Post Nasal Drip, No Sore Throat, No Other Pulmonary: No Dyspnea, No Cough, No Pleuritic Chest Pain, No Other Cardiovascular: No: Chest Pain, Palpitations, Orthopnea, Paroxysmal Noc. Dyspnea, Edema, Lt Headedness, Other Focused Exam Lactate Level 04/08/20 06:15: Lactic Acid Level 1.00 Objective-Cardiology Exam Last Set of Vital Signs Vital Signs 04/10/20 04/10/20 06:01 09:00 Temp 36.4 Pulse 80 Resp 20 B/P (MAP) 140/62 (88) Pulse Ox 95 O2 Delivery Room Air Capillary Refill : Less Than 3 Seconds I&O Intake and Output 04/09/20 23:59 Intake Total 1180 ml Balance 1180 ml Intake Oral 1180 ml # Urine Diapers 6 # Bowel Movements 1 General: Alert, Cooperative, No Acute Distress HEENT: Atraumatic, PERRLA Neck: Supple, No JVD Lungs: Clear to Auscultation, Normal Air Movement Heart: Regular Rate, Normal S1, Normal S2, No Murmurs Abdomen: Normal Bowel Sounds, Soft, No Tenderness Extremities: No Clubbing, No Cyanosis, No Edema, Normal Pulses Skin: No Rashes, No Significant Lesion Neuro: Normal Speech, Cranial Nerves 3-12 NL Psych/Mental Status: Mental Status NL, Mood NL A/P-Cardiology Admission Diagnosis CVA R ICA thrombus PAF COPD Assessment/Plan 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 Maintained on Eliquis. Reported h/o PAF, continue to monitor. Labile blood pressure, losartan was discontinued on April 04, 2020, doing well. Continue to monitor blood pressure Stress test done November 2016 showed LVEF 63% no signif ischemia or infarction. Echo of November 2016 showed LVEF 60-65% COPD, management per medical services DM 2, management per medical services. HLD, maintained on statin CKD 2, continue to monitor renal function Alzheimers dementia PTSD Patient was seen and evaluated with Brandy, examination performed, management plan was discussed, agree with the current scribed note, I made few changes to the note using Italic font Patient is laying down in bed, feeling better. No new complaint Clinical Quality Measures DVT/VTE Risk/Contraindication: Risk Factor Score Per Nursin RFS Level Per Nursing on Admit: 4+=Very High BRANDY ROSS Apr 10, 2020 12:31 JACKIE BHATTI MD Apr 10, 2020 15:02
[2020-04-10 17:20] VITALS: BP 115/58
[2020-04-10] MEDS: MELATONIN 3 MG TABLET PO PRN (20:08)
[2020-04-11] MEDS: CYANOCOBALAMIN 1,000 MCG (VITAMIN B-12) TABLET PO SCH (05:46)
[2020-04-11] MEDS: MULTIVIT W/MINERALS TAB (THERAGRAN M) PO SCH (05:46)
[2020-04-11] MEDS: inSUlin ASPART (NovoLOG) 1 UNIT/0.01 ML (CHARGE PER UNIT) SC SCH ×4 (05:49→20:31)
[2020-04-11 06:04] VITALS: BP 148/64
--- NOTE | 2020-04-11 07:54 | Occupational Ther Daily Note ---
OT Current Status-Daily Note Subjective Pt sleeping in bed. Woke to name. No c/o pain. Mental Status/Objective Patient Orientation: Person, Confused ADL-Treatment Pt inconsistent with abilities due to behaviors. Pt demonstrates ability to complete tasks with min A to CGA though if pt chooses to refuse to help it requires max A to dependent. Pt takes increased time to process situation and complete tasks. Pt was set up to eat meal and uses regular utensils to eat. Min A for supine to EOB. Pt transferred from EOB to commode with Min A. Pt sit to stand Min A while cleansing buttocks/ perineal area, AVILES check for cleanliness. Pt transferred to w/c Min A, performed doff/don UE/LE clothing. Pt performed upper body dressing with set up, verbal cues to find L arm to thread through shirt. Pt had Mod A dressing lower body and cues to place feet into pants. Sit to stand using grab rail on bed to help pull self up, AVILES hiked pants over hips. Co- treatment with PT ([id number]) skills of two clinicians required for skilled instruction and care due to dependent mobility, cognition, and increase safety concern. PT focusing on transfers, B LE strengthening, bed mobility and ambulation. OT focusing on functional transfers, ADLs and placement of B UE during mobility. Pt transported to therapy gym to work on bed mobility, LE exercises. Pt sit to stand using chair to pull self up/stabilize to EOB. EOB to supine on mat, two bridge thrust to scoot body into correct alignment. Pt performed 1 set of 5 up/down leg raises supine on mat. Pt rolled to L side by self performing 1 set of 5 up/down leg raises. Pt rolled to R side with x1 assistance 1 set completing 2/5 up/down leg raises, rest breaks required. Pt supine on mat to EOB with x1 assistance reminders to pull feet off of mat, used chair to pull self up/stabilize while sit to stand to transfer into w/c. Pt transported in w/c to belcher way, performed walking 20 ft down belcher with grab bars, CGA. Pt transported in w/c back to room doff upper body with verbal cues to pull shirt off L arm, Max A to doff pants. Pt sit to stand using grab bar on bed to stand up transferring into bed. Call/ light phone in reach. All needs met. Therapy Code Descriptions/Definitions Functional [place] Measure: 0=Not Assessed/NA 4=Minimal Assistance 1=Total Assistance 5=Supervision or Setup 2=Maximal Assistance 6=Modified [place] 3=Moderate Assistance 7=Complete IndependenceSCALE: Activities may be completed with or without assistive devices. 4-Dqhlsozset-mcrnwdh completes the activity by him/herself with no assistance from a helper. 5-Set-up or Clean-up Assistance-helper sets up or cleans up; patient completes activity. [place] assists only prior to or following the activity. 4-Supervision or Touching Assistance-helper provides verbal cues and/or touching/steadying and/or contact guard assistance as patient completes activity. Assistance may be provided throughout the activity or intermittently. 3-Partial/Moderate Assistance-helper does LESS THAN HALF the effort. [place] lifts, holds or supports trunk or limbs, but provides less than half the effort. 2-Substantial/Maximal Assistance-helper does MORE THAN HALF the effort. [place] lifts or holds trunk or limbs and provides more than half the effort. 4-Fdeswfgcc-mqowxr does ALL the effort. Patient does none of the effort to complete the activity. Or, the assistance of 2 or more helpers is required for the patient to complete the activity. If activity was not attempted, code reason: 7-Patient Refused. 9-Not Applicable-not attempted and the patient did not perform the activity before the current illness, exacerbation or injury. 10-Not Attempted due to Environmental Limitations-(lack of equipment, weather restraints, etc.). 88-Not Attempted due to Medical Conditions or Safety Concerns. Eating (QC): 5 Oral Hygiene (QC): 6 (Per clinical judgment, pt able to complete task sitting at sink.) Upper Body Dressing (QC): 3 Lower Body Dressing (QC): 2 On/Off Footwear: 2 Toileting Hygiene (QC): 2 Toilet Transfer (QC): 3 OT Short Term Goals Short Term Goals Time Frame: Apr 05, 2020 Eatin Oral hygiene: 4 Toileting hygiene: 2 Shower/bathe self: 2 Upper body dressin Lower body dressin Putting on/taking off footwear: 2 OT Melt House Supervisor Goals Assisted Goals Time Frame: Apr 12, 2020 Eating (QC): 6 (not met) Oral Hygiene (QC): 6 (met) Toileting Hygiene (QC): 3 (not met) Shower/Bathe Self (QC): 3 (met) Upper Body Dressing (QC): 5 (not met') Lower Body Dressing (QC): 3 (not met) On/Off Footwear (QC): 3 (not met) Additional Goals: 1-Demonstrate ADL Tasks, 2-Verbalize Understanding, 3- ImproveStrength/Yuriy 1=Demonstrate adherence to instructed precautions during ADL tasks. 2=Patient will verbalize/demonstrate understanding of assistive devices/modifications for ADL. 3=Patient will improve strength/tolerance for activity to enable patient to perform ADL's. OT Education/Plan Problem List/Assessment Assessment: Decreased UE Strength, Impaired Cognition, Impaired Coordination, Impaired Funct Balance, Impaired I ADL's, Impaired Self-Care Skills Discharge Recommendations Plan/Recommendations: Continue POC Treatment Plan/Plan of Care Patient would benefit from OT for education, treatment and training to promote independence in ADL's, mobility, safety and/or upper extremity function for ADL's. Plan of Care: ADL Retraining, Caregiver Training, Cognitive Retraining, Concurrent Therapy, Functional Mobility, Group Exercise/Act as Ind, Orthotic Fitting/Training, UE Funct Exercise/Act, UE Neuromus Re-Ed/Coord, W/C Management Training Treatment Duration: Apr 12, 2020 Frequency: At least 5 of 7 days/Wk (IRF) Estimated Hrs Per Day: 1.5 hours per day Agreement: Yes Rehab Potential: Guarded Time/GCodes Start Time: 07:15 Stop Time: 09:00 Total Time Billed (hr/min): 105 Billed Treatment Time 1 visit- ADL 4 (60 mins), FA 3 (45 mins) Co-treatment ([id number]), Individual ([id number]) MARKUS QUIGLEY Apr 11, 2020 07:54
--- NOTE | 2020-04-11 08:34 | Cardiology Progress Note ---
Subjective Date Seen by Provider: Apr 11, 2020 Time Seen by Provider: 08:34 Subjective/Events-last exam Patient with PT, no new complaints. Denies any chest pain or dyspnea. Review of Systems General: No Chills, No Night Sweats, No Fatigue, No Malaise, No Appetite, No Other HEENT: No Head Aches, No Visual Changes, No Eye Pain, No Ear Pain, No Dysphasia, No Sinus Congestion, No Post Nasal Drip, No Sore Throat, No Other Pulmonary: No Dyspnea, No Cough, No Pleuritic Chest Pain, No Other Cardiovascular: No: Chest Pain, Palpitations, Orthopnea, Paroxysmal Noc. Dyspnea, Edema, Lt Headedness, Other Objective-Cardiology Exam Last Set of Vital Signs Vital Signs 04/11/20 06:04 Temp 36.3 Pulse 74 Resp 18 B/P (MAP) 148/64 (92) Pulse Ox 94 O2 Delivery Room Air Capillary Refill : Less Than 3 Seconds I&O Intake and Output 04/11/20 00:00 Intake Total 1240 ml Balance 1240 ml Intake Oral 1240 ml # Urine Diapers 5 # Bowel Movements 1 General: Alert, Cooperative, No Acute Distress HEENT: Atraumatic, PERRLA Neck: Supple, No JVD Lungs: Clear to Auscultation, Normal Air Movement Heart: Regular Rate, Normal S1, Normal S2, No Murmurs Abdomen: Normal Bowel Sounds, Soft, No Tenderness Extremities: No Clubbing, No Cyanosis, No Edema, Normal Pulses Skin: No Rashes, No Significant Lesion Neuro: Normal Speech, Cranial Nerves 3-12 NL Psych/Mental Status: Mental Status NL, Mood NL A/P-Cardiology Admission Diagnosis CVA R ICA thrombus PAF COPD Assessment/Plan 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 Maintained on Eliquis. Reported h/o PAF, continue to monitor. Labile blood pressure, losartan was discontinued on April 04, 2020, doing well. Continue to monitor blood pressure Stress test done November 2016 showed LVEF 63% no signif ischemia or infarction. Echo of November 2016 showed LVEF 60-65% COPD, management per medical services DM 2, management per medical services. HLD, maintained on statin CKD 2, continue to monitor renal function Alzheimers dementia PTSD Patient was seen and evaluated with Brandy, examination performed, management plan was discussed, agree with the current scribed note, I made few changes to the note using Italic font Patient was seen during physical therapy session, has been doing well Reporting improvement, no chest pain or shortness of breath Continue to monitor Clinical Quality Measures DVT/VTE Risk/Contraindication: Risk Factor Score Per Nursin RFS Level Per Nursing on Admit: 4+=Very High BRANDY ROSS Apr 11, 2020 8:34 am JACKIE BHATTI MD Apr 11, 2020 8:35 am
[2020-04-11] MEDS: SENNA W/DOCUSATE (SENOKOT S) TABLET PO SCH ×2 (08:59→20:30)
[2020-04-11] MEDS: APIXABAN 5 MG (ELIQUIS) TABLET PO SCH ×2 (08:59→20:31)
[2020-04-11] MEDS: polyethylene glycoL POWDER 17 GM (MIRALAX) PACK PO SCH ×2 (09:01→20:31)
--- NOTE | 2020-04-11 09:03 | Physical Therapy Daily Note ---
PT Daily Note-Current Subjective Pt. pleasant but confused, eyes closed much of the time, smiles and makes nonsensical conversation at times. More cooperative today . Co PT OT session. Pain Location: No Pain Reported Mental Status Patient Orientation: Confused Attachments: Other-See Comments (mask while out of room) Transfers SCALE: Activities may be completed with or without assistive devices. 1-Qdwlevbvcy-dfuxltc completes the activity by him/herself with no assistance from a helper. 5-Set-up or Clean-up Assistance-helper sets up or cleans up; patient completes activity. [place] assists only prior to or following the activity. 4-Supervision or Touching Assistance-helper provides verbal cues and/or touching/steadying and/or contact guard assistance as patient completes activity. Assistance may be provided throughout the activity or intermittently. 3-Partial/Moderate Assistance-helper does LESS THAN HALF the effort. [place] lifts, holds or supports trunk or limbs, but provides less than half the effort. 2-Substantial/Maximal Assistance-helper does MORE THAN HALF the effort. [place] lifts or holds trunk or limbs and provides more than half the effort. 3-Amertbsxb-fdyulb does ALL the effort. Patient does none of the effort to complete the activity. Or, the assistance of 2 or more helpers is required for the patient to complete the activity. If activity was not attempted, code reason: 7-Patient Refused. 9-Not Applicable-not attempted and the patient did not perform the activity before the current illness, exacerbation or injury. 10-Not Attempted due to Environmental Limitations-(lack of equipment, weather restraints, etc.). 88-Not Attempted due to Medical Conditions or Safety Concerns. Roll Left & Right (QC): 4 Sit to Lying (QC): 4 Lying to Sitting/Side of Bed(Q: 6 Sit to Stand (QC): 4 Chair/Iym-sf-Colxi Xfer(QC): 4 Toilet Transfer (QC): 4 Car Transfer (QC): 7 co Rx for assistance sit to stand for clothing up and down, pt. did best with back of chair or bed rail directly in front of pt. horizontally to pull up on with CGA, OT then instructing and completing dressing. rolling with CGA left and right, SPTs also utilizing chair or horizontal bar/ surface to pull on with pt. completing 3-4 small steps to destination in most efficient pattern yet displayed during Rx Weight Bearing Full Weight Bearing Full Weight Bearing Gait Training Walk 10 feet (QC): 4 Gait Persons Needed: 1 pt. ambulated in hallway at handrail on right and LITIGATION MANAGER on left for 20 ft, no LOB, equal step length and good erika followed by w/c as pt. is unpredictable Wheelchair Training Does the Pt Use a Wheelchair?: Yes Wheel 50 ft with 2 turns (QC): 2 Wheel 150 ft (QC): 7 Type of Wheelchair: Manual pt. pushes only a few inches to feet with right UE, stating she cannot use her feet "they will be sore and hurt for days if I do that" Stair Training #of Steps: 0 1 Step (curb) (QC): 88 4 Steps (QC): 88 12 Steps (QC): 88 pt. is confused , unsafe and unpredictable Balance Picking up an Object (QC): 88 Exercises Supine Ex: Bridging, Rolling, Heel Slides, Short Arc Quads, Scooting (left and right and up in bed), Straight leg raise Supine Reps: 10 Seated Therapy Exercises: Sit to stand Seated Reps: 8 Treatments co Rx with OT for dressing and UE instruction during tasks and PT for TRF and gait with OT addressing safety back up and UE use for all in general Assessment Current Status: Fair Progress pts. confused state limits function, however when she is cooperative she exhibits good strength and balance PT Short Term Goals Short Term Goals Time Frame: Apr 05, 2020 Roll Left & Right: 3 Sit to lyin Lying to sitting on side of be: 3 Sit to stand: 3 Chair/rnv-qx-jozdb transfer: 3 Walk 10 feet: 3 PT Fci Goals Fci Goals PT Home Health Scheduler Goals Time Frame: Apr 19, 2020 Roll Left & Right (QC): 3 (Emily) Sit to Lying (QC): 3 (Emily) Lying-Sitting on Side/Bed(QC): 3 Sit to Stand (QC): 3 (Emily) Chair/Fvf-kl-Kgqnn Xfer(QC): 3 (Emily) Toilet Transfer (QC): 3 (Emily) Car Transfer (QC): 3 (Emily) Does the Patient Walk: Yes Walk 10 feet (QC): 3 (Emily) Walk 50ft with 2 Turns (QC): 88 Walk 150 ft (QC): 88 Walking 10ft on Uneven Surface: 88 1 Step (curb) (QC): 88 4 Steps (QC): 88 12 Steps (QC): 88 Picking up an Object (QC): 88 Wheel 50 feet with 2 turns (QC: 3 Wheel 150 feet: 3 PT Plan Treatment/Plan Treatment Plan: Continue Plan of Care Treatment Plan: Bed Mobility, Education, Functional Activity Yuriy, Functional Strength, Group Therapy, Gait, Safety, Therapeutic Exercise, Transfers Treatment Duration: Apr 19, 2020 Frequency: At least 5 of 7 days/Wk (IRF) Estimated Hrs Per Day: 1.5 hours per day Patient and/or Family Agrees t: Yes Safety Risks/Education Patient Education: Gait Training, Transfer Techniques, Correct Positioning, W/C Management, Disease Process, Safety Issues Teaching Recipient: Patient Teaching Methods: Demonstration, Discussion Response to Teaching: Unable to Return Demonstration (partially cooperative today), Unable to Comprehend, Reinforcement Needed Time/GCodes Time In: 800 Time Out: 900 Total Billed Treatment Time: 60 Total Billed Treatment 1,EX10m,FA50m KAYCE GUIDO OTHER SALES SUPPORT WORKER Apr 11, 2020 09:03
--- NOTE | 2020-04-11 10:32 | Speech Therapy Daily Note ---
Speech Daily Progress Note Subjective Date Seen by Provider: Apr 11, 2020 Time Seen by Provider: 00:30 Patient was resting in bed, alert and in a good mood. Objective Patient completed questions related to her return home and her needs. Patient also completed orientation questions with 70% given moderate verbal/visual cues. Assessment Assessment Current Status: Fair Progress Treatment Plan Discontinue ST Speech Short Term Goals Short Term Goals Short Term Goals 1) Patient will complete memory tasks at 75% or greater. 2) Patient will complete safety awareness tasks at 75% or greater. 3) Patient will complete problem solving tasks at 75% or greater. Speech Rn Family Practice Goals Senior Care Goals Patient will improve cognitive-communication necessary for safety and daily living tasks with minimal assist. Speech-Plan Patient/Family Goals Patient/Family Goals: Patient is scheduled to return home where she lives with her . Treatment Plan Speech Therapy Treatment Plan: Discontinue ST Treatment Duration: Apr 17, 2020 Frequency: 4 times per week (Patient will receive skilled ST 4-5x per week) Estimated Hrs Per Day: .5 hour per day Rehab Potential: Guarded Barriers to Learning: Patient's dementia, decreased orientation to here and now Pt/Family Agrees to Plan: Yes Safety Risks/Education Teaching Recipient: Patient Teaching Methods: Demonstration, Discussion Response to Teaching: Verbalize Understanding, Return Demonstration, Reinforcement Needed Education Topics Provided: Continued safety within her home Time Speech Therapy Time In: 09:00 Speech Therapy Time Out: 09:30 Total Billed Time: 30 Billed Treatment Time 1, SLTS No QUALITY CODES: EXPRESSION OF IDEAS/WANTS: 2 UNDERSTANDING VERBAL CONTENT: 2 BRIEF INTERVIEW MENTAL STATUS: YES REPETITION OF 3 WORDS: 3 TEMPORAL ORIENTATION: YEAR: NO, MONTH: YES, DAY: NO RECALL SOCK: NO, COLOR: YES WITH CUE, BED: NO MEMORY/RECALL ABILITY: SEASON, THAT SHE'S IN THE HOSPITAL LORIN MONTE Apr 11, 2020 10:32
--- NOTE | 2020-04-11 10:50 | PM&R Progress Note ---
Subjective HPI/CC On Admission Date Seen by Provider: Apr 11, 2020 Time Seen by Provider: 11:00 Subjective/Events-last exam 04/11/20: Incontinence noted Will check urine because it is mal-odorous UTI diagnosed so placed on Omnicef BID Discharge is planned for tomorrow No issues 04/10/20: DC is planned for soon Could go home and will try and see what his needs are whether its a lucille lift or so forth. 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 04/09/20: Family came in yesterday and trained It appears she will be going home with family and they have plenty of help Discharge is planned 04/08/20: Family is here for training WBC elevated at 12 but procalcitonin and lactic acid were both normal and afebrile Overall she is doing very well but dementia precludes anything but a poor prognosis 04/07/20: No issues In good mood 04/06/20: No falls but she had behaviors that increase risk Dementia is significant No pain reported 04/05/20: Fairly cranky with nurse aid today Blood sugar 122 Overall doing well 04/04/20: Significant dementia continues Overall doing pretty well otherwise Bowels are moving Eating and drinking well No falls 04/03/20: Bowels were moving earlier today May need a suppository if they are not evacuating Holding Cozaar due to mild low BP Overall doing pretty well but dementia is significant 04/02/20: Pt doing pretty well Dementia precludes anything but a poor prognosis retirement Will work on disposition Has no complaints 04/01/20: Bowels moved 4x yesterday after complete evacuation No pain is reported Labs are okay 03/31/20: Monitoring BP No bleed issues from OAC AF rate controlled BM x 4 after suppository Delusions at times 03/30/20: Doing well Leans to the left Suppository will be required since no BM for several days No changes otherwise Patient settled in to IRF Baseline dementia and labile changes to behaviors is at baseline No pain reported SLUMS cannot be performed due to severity of dementia Left sided weakness is profound No falls Checked meds and labs Conferred with RN Reviewed therapy notes Review of Systems General: Fatigue, Malaise Objective Exam Vital Signs Vital Signs Date Time Temp Pulse Resp B/P (MAP) Pulse Ox O2 Delivery O2 Flow Rate FiO2 04/11/20 18:04 Room Air 04/11/20 15:56 37.0 87 18 142/68 (92) 93 Capillary Refill : Less Than 3 Seconds General Appearance: No Apparent Distress, WD/WN, Chronically ill HEENT: PERRL/EOMI, Normal ENT Inspection, Pharynx Normal Neck: Full Range of Motion, Normal Inspection, Non Tender, Supple, Carotid Bruit Respiratory: Chest Non Tender, Lungs Clear, Normal Breath Sounds, No Accessory Muscle Use, No Respiratory Distress Cardiovascular: No Edema, No Gallop, No JVD, No Murmur, Normal Peripheral Pulses, Irregularly Irregular Gastrointestinal: Normal Bowel Sounds, No Organomegaly, No Pulsatile Mass, Non Tender, Soft Back: Normal Inspection, No CVA Tenderness, No Vertebral Tenderness Extremity: Normal Capillary Refill, Normal Inspection, Normal Range of Motion, Non Tender, No Calf Tenderness, No Pedal Edema Neurologic/Psychiatric: Alert, No Motor/Sensory Deficits, Normal 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 FIM Transfers Therapy Code Descriptions/Definitions Functional [place] Measure: 0=Not Assessed/NA 4=Minimal Assistance 1=Total Assistance 5=Supervision or Setup 2=Maximal Assistance 6=Modified [place] 3=Moderate Assistance 7=Complete IndependenceSCALE: Activities may be completed with or without assistive devices. 7-Tuzumqrefd-bojgtyv completes the activity by him/herself with no assistance from a helper. 5-Set-up or Clean-up Assistance-helper sets up or cleans up; patient completes activity. [place] assists only prior to or following the activity. 4-Supervision or Touching Assistance-helper provides verbal cues and/or touching/steadying and/or contact guard assistance as patient completes activity. Assistance may be provided throughout the activity or intermittently. 3-Partial/Moderate Assistance-helper does LESS THAN HALF the effort. [place] lifts, holds or supports trunk or limbs, but provides less than half the effort. 2-Substantial/Maximal Assistance-helper does MORE THAN HALF the effort. [place] lifts or holds trunk or limbs and provides more than half the effort. 3-Hhoownbzf-myhmuv does ALL the effort. Patient does none of the effort to complete the activity. Or, the assistance of 2 or more helpers is required for the patient to complete the activity. If activity was not attempted, code reason: 7-Patient Refused. 9-Not Applicable-not attempted and the patient did not perform the activity before the current illness, exacerbation or injury. 10-Not Attempted due to Environmental Limitations-(lack of equipment, weather restraints, etc.). 88-Not Attempted due to Medical Conditions or Safety Concerns. Roll Left to Right (QC): 4 Sit to Lying (QC): 4 Sit to Stand (QC): 4 Chair/Nme-eb-Ojvwc Xfer(QC): 4 Car Transfer (QC): 7 Gait Training Does the Patient Walk?: No and Walking Goal IS indicated Walk 10 feet (QC): 4 Walk 50 ft with 2 Turns(QC): 88 Walk 150 ft (QC): 88 Walking 10ft/uneven surface-QC: 88 Gait Persons Needed: 1 Wheelchair Training Does the Pt Use a Wheelchair?: Yes Distance: 150'x2 Wheel 50 ft with 2 turns (QC): 2 Wheel 150 ft (QC): 7 Type of Wheelchair: Manual Stair Training #of Steps: 0 1 Step (curb) (QC): 88 4 Steps (QC): 88 12 Steps (QC): 88 Balance Picking up an Object (QC): 88 ADL-Treatment Eating (QC): 5 Oral Hygiene (QC): 6 (Per clinical judgment, pt able to complete task sitting at sink.) Bathing Location: L Arm, R Arm, L Upper Leg, R Upper Leg, L Lower Leg (including foot), R Lower Leg (including foot), Chest, Abdomen Shower/Bathe Self (QC): 2 Upper Body Dressing (QC): 3 Lower Body Dressing (QC): 2 On/Off Footwear (QC): 2 Toileting Hygiene (QC): 2 Toilet Transfer (QC): 3 Assessment/Plan Assessment and Plan Assess & Plan/Chief Complaint Assessment: 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 02/21/20 transferred to New onset AF OAC DM HTN COPD Dementia Confusion at baseline Vit B12 deficiency Left sided weakness h/o UTI Plan: IRF protocol OAC Cardiology consultation Monitor closely 03/29/20: OAC Monitor AF Dementia at baseline 03/30/20: BM regimen Monitor left sided weakness 03/31/20: Monitor delusions Monitor BP 04/01/20: Bowels moved plenty yesterday hold laxatives Monitor blood pressure 04/02/20: Continue intensive therapy Dementia is severe 04/03/20: Monitor BP IRF protocol 04/04/20: Monitor for falls Monitor BP 04/05/20: Monitor BP Fall risk Confusion monitoring 04/06/20: Monitor for falls 04/07/20: Monitor closely 04/08/20: Family training 04/09/20: DC home with HH with family soon 04/10/20: DC home later this week If fails at home will need NH 04/11/20: DC tomorrow UTI Tx (1) Acute ischemic right MCA stroke Status: Acute (2) Atrial fibrillation (3) History of UTI (4) Dementia (5) Left-sided weakness (6) COPD (chronic obstructive pulmonary disease) (7) B12 deficiency (8) Altered mental status Status: Acute (9) Diabetes mellitus (10) Hypertension KULDEEP PAYNE DO Apr 11, 2020 10:50
--- NOTE | 2020-04-11 11:50 | NUR ---
STRAIGHT CATH DONE WITHOUT DIFFICULTY AND URINE SENT TO LAB.
[2020-04-11 12:07] LABS: BILIRUBIN,URINE NEGATIVE (NEGATIVE); CLARITY,URINE SL CLOUDY; COLOR,URINE YELLOW; GLUCOSE, URINE (UA) NEGATIVE (NEGATIVE); KETONES,URINE NEGATIVE (NEGATIVE); LEUKOCYTE ESTERASE ,URINE 2+ (NEGATIVE); NITRITE,URINE POSITIVE (NEGATIVE); PROTEIN,URINE NEGATIVE (NEGATIVE)
[2020-04-11 12:15] LABS: BACTERIA,URINE LARGE /HPF; WBC,URINE 50-100 /HPF
[2020-04-11] MEDS ORDERED: CEFDINIR 300 MG (OMNICEF) CAP PO NR (14:00)
--- NOTE | 2020-04-11 15:05 | NUR ---
CM/SS PATIENT CARE CONFERENCE Visited with patient about conference Summary, then called spouse Art Hunter. Both are in agreement to her discharge tomorrow back home with Art and their grandson Arash Hunter as caregivers. [facility]: Discussed Medicare Compare with Art and reviewed agencies in service area. Referral completed with his choice agency, [facility], for RN PT VIPUL HUNTER. DME: Patient has all necessary DME at this time. Family stated they do not need a lucille at this time. [facility] therapy staff to reassess the home and functional/caregiving and make recommendations as needed. TRANSPORTATION: Patient now requires wheelchair transport post CVA and family does not have a wheelchair van. Coordinated transport with [facility] for 1130. Arranged for Art to bring patient's wheelchair and clothing, available in patient room. Finalize tomorrow.
[2020-04-11 15:56] VITALS: BP 142/68
[2020-04-11] MEDS: CEFDINIR 300 MG (OMNICEF) CAP PO SCH (20:30)
[2020-04-11] MEDS ORDERED: ALPR.25T PO (20:51)
[2020-04-11] MEDS ORDERED: APIX5TAB PO (20:51)
[2020-04-11] MEDS ORDERED: MULT1TAB63 PO (20:51)
[2020-04-11] MEDS ORDERED: ATOR40TA PO (20:51)
[2020-04-11] MEDS ORDERED: CYAN-41 PO (20:51)
[2020-04-11] MEDS ORDERED: GLYB1.253 PO (20:51)
[2020-04-11] MEDS ORDERED: MELA3TAB39 PO (20:51)
[2020-04-11] MEDS ORDERED: CEFD300C3 PO (20:51)
--- NOTE | 2020-04-11 20:53 | D/C HH Face to Face Order ---
D/C Face to Face Orders Reconcile Patient Problems Problems Reviewed?: Yes Instructions for Patient Via [facility] [employer], Patient Instructions/FollowUp: PCP 1 week Physician to follow Patient: PCP Discharge Diet for Home: ADA Diet Patient Problems: CVA Dementia DM Goals for Patient: [place] Patient Data-Allergies,Ht & Wt Patient Allergies: Coded Allergies: aspirin (Unverified Allergy, Mild, 04/01/09) Uncoded Allergies: [id number] (SULFA (SULFONAMIDE ANTIBIOTICS)) (Allergy, Mild, 04/01/09) Height (Feet): 4 Height (Inches): 11.00 Weight (Pounds): 170 Weight (Ounces): 0 Home Health Need/Face to Face Date of Face to Face: Apr 11, 2020 Clinical Findings: Generalized weakness and fatigue, Instability, Muscle weakness, Unsteady gait I have seen Pt rlyq-ae-zkgs: Yes Discharged To: Home Diagnosis/Conditions: CVA Patient is Homebound due to: CognItive deficits, Jaimie fall risk due to i nstabilty, Muscle weakness Homebound Status Due to the above stated illness, injury or surgical procedure (medical condition or diagnosis) and associated clinical findings, the patient is homebound because of his/her inability to leave home except with aid of a supportive device and/or person AND leaving the home requires a considerable and taxing effort or is medically contraindicated. Pt req the following assistanc: Walker, Wheelchair Home Health Nursing Orders Home Health Services Order: Nursing Services, Office Coordinator Receptionist-Evaluate & Treat, Physical Therapy-Evaluate & Treat, Speech Language-Evaluate & Treat, Other (bath aide) Certify Stmt I certify that this patient is under my care and that I, a nurse practitioner or a physician; a fire assistant working with me, had a face to face encounter that - meets the physician face to face encounter requirements with this patient as dated. KULDEEP PAYNE DO Apr 11, 2020 20:53
[2020-04-12] MEDS: inSUlin ASPART (NovoLOG) 1 UNIT/0.01 ML (CHARGE PER UNIT) SC SCH ×2 (05:30→11:18)
[2020-04-12] MEDS: CYANOCOBALAMIN 1,000 MCG (VITAMIN B-12) TABLET PO SCH (06:07)
[2020-04-12] MEDS: MULTIVIT W/MINERALS TAB (THERAGRAN M) PO SCH (06:07)
[2020-04-12 06:15] VITALS: BP 130/65
[2020-04-12] MEDS: CEFDINIR 300 MG (OMNICEF) CAP PO SCH (07:59)
[2020-04-12] MEDS: APIXABAN 5 MG (ELIQUIS) TABLET PO SCH (07:59)
[2020-04-12] MEDS: polyethylene glycoL POWDER 17 GM (MIRALAX) PACK PO SCH (08:29)
[2020-04-12] MEDS: SENNA W/DOCUSATE (SENOKOT S) TABLET PO SCH (08:29)
--- NOTE | 2020-04-12 11:04 | NUR ---
CM/SS DISCHARGE Patient discharged to home as planned via [facility] transport scheduled for 1130. Confirmed spouse and grandson are ready to receive patient. She will be in her own wheelchair and Art states they have ramps on both front and back of house. [facility]: Finalized with [facility]. Provided Covid negative screen from [facility], patient has not presented with any signs/symptoms here requiring any further testing. IMM2 discussed yesterday with Art, verbal denial of any intention to appeal. Patient stated yesterday as well she is ready to return home. Unit RN aware of all arrangements and has plan in place for therapy team to assist with dressing patient and transferring her to wheelchair. Addendum: 04/12/20 at 1608 by KVNG LLANOS Updated Cane Stripper at [facility] of patient's discharge and [facility] services: Tracee @ [facility] [phone] Left message on confidential voice mail.
--- NOTE | 2020-04-12 11:20 | Therapy Team Discharge Summary ---
Therapy Discharge Summary Discharge Recommendations Date of Discharge 04/12/2020 Therapy D/C Recommendations: Physical Therapy Home Care Physical Therapy This patient admitted to ARU post acute hospital stay due to a CVA. Her PLOF was living at home with her and son, she was able to mobilize, but did have dementia. Upon admission to this unit, she was max to dependent with bed mobility and transfers and unable to ambulate or propel a wheelchair. Treatment has consisted of functional strength and mobiltiy to progress her bed mobility and transfers. She did make progress and her spouse received training on caring for her at home. A barrier to progress throughout her stay is her prior dementia that impaired following cues, follow thru and participation. She is to discharge home with family this date. Occupational Therapy Decreased UE Strength, Impaired Cognition, Impaired Coordination, Impaired Funct Balance, Impaired I ADL's, Impaired Self-Care Skills PT Terrazzo Mechanic Goals Group Home Goals PT Group Home Goals Time Frame: Apr 19, 2020 Roll Left to Right (QC): 3 (Emily) Sit to Lying (QC): 3 (Emily) Lying-Sitting on Side/Bed(QC): 3 Sit to Stand (QC): 3 (Emily) Chair/Kcz-ks-Rdhik Xfer(QC): 3 (Emily) Car Transfer (QC): 3 (Emily) Does the Patient Walk: Yes Walk 10 feet (QC): 3 (Emily) Walk 10ft-Uneven Surface(QC): 88 Walk 50ft with 2 Turns (QC): 88 Walk 150 ft (QC): 88 Wheel 50 feet with 2 turns (QC: 3 1 Step (curb) (QC): 88 4 Steps (QC): 88 12 Steps (QC): 88 Picking up an Object (QC): 88 Goals met. OT Terrazzo Mechanic Goals Terrazzo Mechanic Goals Time Frame: Apr 12, 2020 Eating (QC): 6 (not met) Oral Hygiene (QC): 6 (met) Shower/Bathe Self (QC): 3 (met) Upper Body Dressing (QC): 5 (not met') Lower Body Dressing (QC): 3 (not met) On/Off Footwear (QC): 3 (not met) Toileting Hygiene (QC): 3 (not met) Toilet/Commode Transfer (QC): 3 (Emily) Additional Goals: 1-Demonstrate ADL Tasks, 2-Verbalize Understanding, 3-ImproveStrength/Yuriy 1=Demonstrate adherence to instructed precautions during ADL tasks. 2=Patient will verbalize/demonstrate understanding of assistive devices/modifications for ADL. 3=Patient will improve strength/tolerance for activity to enable patient to perform ADL's. Speech Group Home Goals Group Home Goals Patient will improve cognitive-communication necessary for safety and daily living tasks with minimal assist. MARKUS BARBER PT Apr 12, 2020 11:20
[2020-04-12 11:30] VITALS: BP 130/65
--- NOTE | 2020-04-12 11:43 | Therapy Team Discharge Summary ---
Therapy Discharge Summary Discharge Recommendations Date of Discharge Therapy D/C Recommendations: Physical Therapy Home Care Occupational Therapy Decreased UE Strength, Impaired Cognition, Impaired Coordination, Impaired Funct Balance, Impaired I ADL's, Impaired Self-Care Skills Speech-Language Pathology Patient was admitted to the ARU s/p CVA. Patient has a medical history of Alzheimer's which was apparent during her admission. The SLUMS was given with no ability to achieve a score. The patient received skilled ST for cognitive therapy, however she made no progress. Patient is discharging to home this date. Patient lives with her who will give her support. She will also be receiving home health services. PT Erp Consultant Goals Erp Consultant Goals PT Erp Consultant Goals Time Frame: Apr 19, 2020 Roll Left to Right (QC): 3 (Emily) Sit to Lying (QC): 3 (Emily) Lying-Sitting on Side/Bed(QC): 3 Sit to Stand (QC): 3 (Emily) Chair/Tni-pz-Ufduo Xfer(QC): 3 (Emily) Car Transfer (QC): 3 (Emily) Does the Patient Walk: Yes Walk 10 feet (QC): 3 (Emily) Walk 10ft-Uneven Surface(QC): 88 Walk 50ft with 2 Turns (QC): 88 Walk 150 ft (QC): 88 Wheel 50 feet with 2 turns (QC: 3 1 Step (curb) (QC): 88 4 Steps (QC): 88 12 Steps (QC): 88 Picking up an Object (QC): 88 OT Halfway Goals Halfway Goals Time Frame: Apr 12, 2020 Eating (QC): 6 (not met) Oral Hygiene (QC): 6 (met) Shower/Bathe Self (QC): 3 (met) Upper Body Dressing (QC): 5 (not met') Lower Body Dressing (QC): 3 (not met) On/Off Footwear (QC): 3 (not met) Toileting Hygiene (QC): 3 (not met) Toilet/Commode Transfer (QC): 3 (Emily) Additional Goals: 1-Demonstrate ADL Tasks, 2-Verbalize Understanding, 3- ImproveStrength/Yuriy 1=Demonstrate adherence to instructed precautions during ADL tasks. 2=Patient will verbalize/demonstrate understanding of assistive devices/modifications for ADL. 3=Patient will improve strength/tolerance for activity to enable patient to perform ADL's. Speech Halfway Goals Erp Consultant Goals Patient will improve cognitive-communication necessary for safety and daily living tasks with minimal assist. LORIN MONTE Apr 12, 2020 11:43
--- NOTE | 2020-04-12 12:22 | PM&R Progress Note ---
Subjective HPI/CC On Admission Date Seen by Provider: Apr 12, 2020 Time Seen by Provider: 12:30 Subjective/Events-last exam 04/12/20: DC 04/11/20: Incontinence noted Will check urine because it is mal-odorous UTI diagnosed so placed on Omnicef BID Discharge is planned for tomorrow No issues 04/10/20: DC is planned for soon Could go home and will try and see what his needs are whether its a lucille lift or so forth. 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 04/09/20: Family came in yesterday and trained It appears she will be going home with family and they have plenty of help Discharge is planned 04/08/20: Family is here for training WBC elevated at 12 but procalcitonin and lactic acid were both normal and afebrile Overall she is doing very well but dementia precludes anything but a poor prognosis 04/07/20: No issues In good mood 04/06/20: No falls but she had behaviors that increase risk Dementia is significant No pain reported 04/05/20: Fairly cranky with nurse aid today Blood sugar 122 Overall doing well 04/04/20: Significant dementia continues Overall doing pretty well otherwise Bowels are moving Eating and drinking well No falls 04/03/20: Bowels were moving earlier today May need a suppository if they are not evacuating Holding Cozaar due to mild low BP Overall doing pretty well but dementia is significant 04/02/20: Pt doing pretty well Dementia precludes anything but a poor prognosis custodial Will work on disposition Has no complaints 04/01/20: Bowels moved 4x yesterday after complete evacuation No pain is reported Labs are okay 03/31/20: Monitoring BP No bleed issues from OAC AF rate controlled BM x 4 after suppository Delusions at times 03/30/20: Doing well Leans to the left Suppository will be required since no BM for several days No changes otherwise Patient settled in to IRF Baseline dementia and labile changes to behaviors is at baseline No pain reported SLUMS cannot be performed due to severity of dementia Left sided weakness is profound No falls Checked meds and labs Conferred with RN Reviewed therapy notes Objective Exam Vital Signs Vital Signs Date Time Temp Pulse Resp B/P (MAP) Pulse Ox O2 Delivery O2 Flow Rate FiO2 04/12/20 11:30 36.6 74 20 130/65 97 Room Air Capillary Refill : Less Than 3 Seconds General Appearance: No Apparent Distress, WD/WN, Chronically ill HEENT: PERRL/EOMI, Normal ENT Inspection, Pharynx Normal Neck: Full Range of Motion, Normal Inspection, Non Tender, Supple, Carotid Bruit Respiratory: Chest Non Tender, Lungs Clear, Normal Breath Sounds, No Accessory Muscle Use, No Respiratory Distress Cardiovascular: No Edema, No Gallop, No JVD, No Murmur, Normal Peripheral Pulses, Irregularly Irregular Gastrointestinal: Normal Bowel Sounds, No Organomegaly, No Pulsatile Mass, Non Tender, Soft Back: Normal Inspection, No CVA Tenderness, No Vertebral Tenderness Extremity: Normal Capillary Refill, Normal Inspection, Normal Range of Motion, Non Tender, No Calf Tenderness, No Pedal Edema Neurologic/Psychiatric: Alert, No Motor/Sensory Deficits, Normal 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 FIM Transfers Therapy Code Descriptions/Definitions Functional [place] Measure: 0=Not Assessed/NA 4=Minimal Assistance 1=Total Assistance 5=Supervision or Setup 2=Maximal Assistance 6=Modified [place] 3=Moderate Assistance 7=Complete IndependenceSCALE: Activities may be completed with or without assistive devices. 9-Icasogrktj-vjyldim completes the activity by him/herself with no assistance from a helper. 5-Set-up or Clean-up Assistance-helper sets up or cleans up; patient completes activity. [place] assists only prior to or following the activity. 4-Supervision or Touching Assistance-helper provides verbal cues and/or touching/steadying and/or contact guard assistance as patient completes activity. Assistance may be provided throughout the activity or intermittently. 3-Partial/Moderate Assistance-helper does LESS THAN HALF the effort. [place] lifts, holds or supports trunk or limbs, but provides less than half the effort. 2-Substantial/Maximal Assistance-helper does MORE THAN HALF the effort. [place] lifts or holds trunk or limbs and provides more than half the effort. 8-Dfdeqshzh-ybmntf does ALL the effort. Patient does none of the effort to complete the activity. Or, the assistance of 2 or more helpers is required for the patient to complete the activity. If activity was not attempted, code reason: 7-Patient Refused. 9-Not Applicable-not attempted and the patient did not perform the activity before the current illness, exacerbation or injury. 10-Not Attempted due to Environmental Limitations-(lack of equipment, weather restraints, etc.). 88-Not Attempted due to Medical Conditions or Safety Concerns. Roll Left to Right (QC): 4 Sit to Lying (QC): 4 Sit to Stand (QC): 4 Chair/Wnf-hq-Njmrc Xfer(QC): 4 Car Transfer (QC): 7 Gait Training Does the Patient Walk?: No and Walking Goal IS indicated Walk 10 feet (QC): 4 Walk 50 ft with 2 Turns(QC): 88 Walk 150 ft (QC): 88 Walking 10ft/uneven surface-QC: 88 Gait Persons Needed: 1 Wheelchair Training Does the Pt Use a Wheelchair?: Yes Distance: 150'x2 Wheel 50 ft with 2 turns (QC): 2 Wheel 150 ft (QC): 7 Type of Wheelchair: Manual Stair Training #of Steps: 0 1 Step (curb) (QC): 88 4 Steps (QC): 88 12 Steps (QC): 88 Balance Picking up an Object (QC): 88 ADL-Treatment Eating (QC): 5 Oral Hygiene (QC): 6 (Per clinical judgment, pt able to complete task sitting at sink.) Bathing Location: L Arm, R Arm, L Upper Leg, R Upper Leg, L Lower Leg (including foot), R Lower Leg (including foot), Chest, Abdomen Shower/Bathe Self (QC): 2 Upper Body Dressing (QC): 3 Lower Body Dressing (QC): 2 On/Off Footwear (QC): 2 Toileting Hygiene (QC): 2 Toilet Transfer (QC): 3 Assessment/Plan Assessment and Plan Assess & Plan/Chief Complaint Assessment: 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 02/21/20 transferred to New onset AF OAC DM HTN COPD Dementia Confusion at baseline Vit B12 deficiency Left sided weakness h/o UTI Plan: IRF protocol OAC Cardiology consultation Monitor closely 03/29/20: OAC Monitor AF Dementia at baseline 03/30/20: BM regimen Monitor left sided weakness 03/31/20: Monitor delusions Monitor BP 04/01/20: Bowels moved plenty yesterday hold laxatives Monitor blood pressure 04/02/20: Continue intensive therapy Dementia is severe 04/03/20: Monitor BP IRF protocol 04/04/20: Monitor for falls Monitor BP 04/05/20: Monitor BP Fall risk Confusion monitoring 04/06/20: Monitor for falls 04/07/20: Monitor closely 04/08/20: Family training 04/09/20: DC home with HH with family soon 04/10/20: DC home later this week If fails at home will need NH 04/11/20: DC tomorrow UTI Tx (1) Acute ischemic right MCA stroke Status: Acute (2) Atrial fibrillation (3) History of UTI (4) Dementia (5) Left-sided weakness (6) COPD (chronic obstructive pulmonary disease) (7) B12 deficiency (8) Altered mental status Status: Acute (9) Diabetes mellitus (10) Hypertension KULDEEP PAYNE DO Apr 12, 2020 12:22
--- NOTE | 2020-04-12 12:51 | Discharge Summary ---
Diagnosis/Chief Complaint Date of Admission Mar 28, 2020 at 18:05 Date of Discharge Apr 12, 2020 at 11:36 Discharge Date: Apr 12, 2020 Discharge Diagnosis Assessment: 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 02/21/20 transferred to New onset AF OAC DM HTN COPD Dementia Confusion at baseline Vit B12 deficiency Left sided weakness h/o UTI Plan: IRF protocol OAC Cardiology consultation Monitor closely 03/29/20: OAC Monitor AF Dementia at baseline 03/30/20: BM regimen Monitor left sided weakness 03/31/20: Monitor delusions Monitor BP 04/01/20: Bowels moved plenty yesterday hold laxatives Monitor blood pressure 04/02/20: Continue intensive therapy Dementia is severe 04/03/20: Monitor BP IRF protocol 04/04/20: Monitor for falls Monitor BP 04/05/20: Monitor BP Fall risk Confusion monitoring 04/06/20: Monitor for falls 04/07/20: Monitor closely 04/08/20: Family training 04/09/20: DC home with HH with family soon 04/10/20: DC home later this week If fails at home will need NH 04/11/20: DC tomorrow UTI Tx (1) Acute ischemic right MCA stroke Status: Acute (2) Atrial fibrillation (3) History of UTI (4) Dementia (5) Left-sided weakness (6) COPD (chronic obstructive pulmonary disease) (7) B12 deficiency (8) Altered mental status Status: Acute (9) Diabetes mellitus (10) Hypertension Discharge Summary Discharge Physical Examination Allergies: Coded Allergies: aspirin (Unverified Allergy, Mild, 04/01/09) Uncoded Allergies: [id number] (SULFA (SULFONAMIDE ANTIBIOTICS)) (Allergy, Mild, 04/01/09) Vitals & I&Os Vital Signs Date Time Temp Pulse Resp B/P (MAP) Pulse Ox O2 Delivery O2 Flow Rate FiO2 04/12/20 11:30 36.6 74 20 130/65 97 Room Air General Appearance: Alert, Cooperative Respiratory: Clear to Auscultation Cardiovascular: Regular Rate Hospital Course Was the Problem List Reviewed?: Yes Patient had an uneventful hospital course for 2 weeks after admitted from a fter suffering a catastrophic CVA with left sided weakness. Dementia at baseline was a challenge for therapy. UTI dx the day before DC and patient was placed on appropriate abx. BP remained stable and Cardiology was consulted for AF maintained on OAC. No issues occurred during stay and family training ensued and patient was stable at SD. Labs (last 24 hrs) Laboratory Tests 03/28/20 21:39: Glucometer 174H 03/29/20 04:25: White Blood Count 9.7, Red Blood Count 3.27L, Hemoglobin 12.3, Hematocrit 36, Mean Corpuscular Volume 110H, Mean Corpuscular Hemoglobin 38H, Mean Corpuscular Hemoglobin Concent 34, Red Cell Distribution Width 13.3, Platelet Count 271, Mean Platelet Volume 11.1, Immature Granulocyte % (Auto) 0, Neutrophils (%) (Auto) 48, Lymphocytes (%) (Auto) 39, Monocytes (%) (Auto) 9, Eosinophils (%) (Auto) 3, Basophils (%) (Auto) 0, Neutrophils # (Auto) 4.6, Lymphocytes # (Auto) 3.8, Monocytes # (Auto) 0.8, Eosinophils # (Auto) 0.3, Basophils # (Auto) 0.0, Immature Granulocyte # (Auto) 0.0, Sodium Level 137, Potassium Level 3.8, Chloride Level 102, Carbon Dioxide Level 22, Anion Gap 13, Blood Urea Nitrogen 16, Creatinine 0.78, Estimat Glomerular Filtration Rate > 60, BUN/Creatinine Ratio 21, Glucose Level 129H, Calcium Level 8.9, Corrected Calcium 9.1, Total Bilirubin 0.7, Aspartate Amino Transf (AST/SGOT) 48H, Alanine Aminotransferase (ALT/SGPT) 29, Alkaline Phosphatase 79, Total Protein 7.2, Albumin 3.7 03/29/20 10:50: Glucometer 137H 03/29/20 15:37: Glucometer 118H 03/29/20 20:03: Glucometer 140H 03/30/20 05:46: Glucometer 130H 03/30/20 10:50: Glucometer 143H 03/30/20 15:12: Glucometer 139H 03/30/20 20:05: Glucometer 148H 03/31/20 05:25: Glucometer 128H 03/31/20 10:46: Glucometer 164H 03/31/20 16:10: Glucometer 116H 03/31/20 20:57: Glucometer 148H 04/01/20 06:10: White Blood Count 8.4, Red Blood Count 3.10L, Hemoglobin 11.8, Hematocrit 34L, Mean Corpuscular Volume 109H, Mean Corpuscular Hemoglobin 38H, Mean Corpuscular Hemoglobin Concent 35, Red Cell Distribution Width 13.2, Platelet Count 287, Mean Platelet Volume 11.4, Immature Granulocyte % (Auto) 0, Neutrophils (%) (Auto) 42, Lymphocytes (%) (Auto) 38, Monocytes (%) (Auto) 12, Eosinophils (%) (Auto) 6, Basophils (%) (Auto) 1, Neutrophils # (Auto) 3.5, Lymphocytes # (Auto) 3.2, Monocytes # (Auto) 1.0, Eosinophils # (Auto) 0.5H, Basophils # (Auto) 0.1, Immature Granulocyte # (Auto) 0.0, Sodium Level 137, Potassium Level 3.9, Chloride Level 104, Carbon Dioxide Level 22, Anion Gap 11, Blood Urea Nitrogen 14, Creatinine 0.80, Estimat Glomerular Filtration Rate > 60, BUN/Creatinine Ratio 18, Glucose Level 138H, Calcium Level 9.0, Corrected Calcium 9.3, Total Bilirubin 0.8, Aspartate Amino Transf (AST/SGOT) 49H, Alanine Aminotransferase (ALT/SGPT) 34, Alkaline Phosphatase 69, Total Protein 7.0, Albumin 3.6 04/01/20 06:19: Glucometer 125H 04/01/20 10:52: Glucometer 197H 04/01/20 15:33: Glucometer 137H 04/01/20 20:01: Glucometer 156H 04/02/20 05:10: Glucometer 129H 04/02/20 10:54: Glucometer 189H 04/02/20 15:31: Glucometer 124H 04/02/20 20:06: Glucometer 136H 04/03/20 05:56: Glucometer 133H 04/03/20 11:21: Glucometer 152H 04/03/20 16:59: Glucometer 135H 04/03/20 21:11: Glucometer 294H 04/04/20 05:13: Glucometer 100 04/04/20 10:50: Glucometer 170H 04/04/20 15:26: Glucometer 204H 04/04/20 20:06: Glucometer 101 04/05/20 05:33: Glucometer 122H 04/05/20 10:57: Glucometer 221H 04/05/20 15:30: Glucometer 104 04/05/20 20:31: Glucometer 200H 04/06/20 05:52: Glucometer 114H 04/06/20 11:05: Glucometer 181H 04/06/20 15:43: Glucometer 121H 04/06/20 20:12: Glucometer 163H 04/07/20 05:42: Glucometer 126H 04/07/20 10:53: Glucometer 244H 04/07/20 15:46: Glucometer 90 04/07/20 20:03: Glucometer 153H 04/08/20 05:20: White Blood Count 12.3H, Red Blood Count 3.52L, Hemoglobin 12.9, Hematocrit 38, Mean Corpuscular Volume 108H, Mean Corpuscular Hemoglobin 37H, Mean Corpuscular Hemoglobin Concent 34, Red Cell Distribution Width 14.2, Platelet Count 618H, Mean Platelet Volume 10.5, Immature Granulocyte % (Auto) 0, Neutrophils (%) (Auto) 56, Lymphocytes (%) (Auto) 28, Monocytes (%) (Auto) 9, Eosinophils (%) (Auto) 6, Basophils (%) (Auto) 1, Neutrophils # (Auto) 6.9, Lymphocytes # (Auto) 3.5, Monocytes # (Auto) 1.1H, Eosinophils # (Auto) 0.7H, Basophils # (Auto) 0.1, Immature Granulocyte # (Auto) 0.0, Sodium Level 139, Potassium Level 3.9, Chloride Level 104, Carbon Dioxide Level 23, Anion Gap 12, Blood Urea Nitrogen 14, Creatinine 0.92, Estimat Glomerular Filtration Rate 60, BUN/Creatinine Ratio 15, Glucose Level 129H, Calcium Level 9.4, Corrected Calcium 9.5, Total Bilirubin 0.6, Aspartate Amino Transf (AST/SGOT) 37H, Alanine Aminotransferase (ALT/SGPT) 27, Alkaline Phosphatase 64, Total Protein 7.7, Albumin 3.9, Procalcitonin 0.08 04/08/20 06:15: Lactic Acid Level 1.00 04/08/20 11:03: Glucometer 163H 04/08/20 15:03: Glucometer 171H 04/08/20 21:31: Glucometer 176H 04/09/20 05:57: Glucometer 188H 04/09/20 10:48: Glucometer 181H 04/09/20 15:23: Glucometer 160H 04/09/20 20:06: Glucometer 175H 04/10/20 05:54: Glucometer 147H 04/10/20 10:44: Glucometer 181H 04/10/20 15:13: Glucometer 116H 04/10/20 20:17: Glucometer 154H 04/11/20 05:49: Glucometer 142H 04/11/20 11:07: Glucometer 134H 04/11/20 11:54: Urine Color YELLOW, Urine Clarity SL CLOUDY, Urine pH 6.0, Urine Specific Dale 1.020, Urine Protein NEGATIVE, Urine Glucose (UA) NEGATIVE, Urine Ketones NEGATIVE, Urine Nitrite POSITIVEH, Urine Bilirubin NEGATIVE, Urine Urobilinogen 0.2, Urine Leukocyte Esterase 2+H, Urine RBC (Auto) 1+H, Urine RBC 2-5H, Urine WBC 50-100H, Urine Crystals NONE, Urine Bacteria LARGEH, Urine Casts NONE, Urine Mucus NEGATIVE, Urine Culture Indicated YES 04/11/20 15:54: Glucometer 148H 04/11/20 20:26: Glucometer 140H 04/12/20 05:30: Glucometer 132H 04/12/20 10:57: Glucometer 227H Microbiology 04/11/20 Urine Culture - Preliminary, Resulted Escherichia coli Pending Labs Microbiology Date/Time Source Procedure Growth Status 04/11/20 11:54 Urine Straight Cath, In/Out Urine Culture - Preliminary Escherichia coli Resulted Laboratory Tests 03/28/20 21:39: Glucometer 174 03/29/20 04:25: White Blood Count 9.7, Red Blood Count 3.27, Hemoglobin 12.3, Hematocrit 36, Mean Corpuscular Volume 110, Mean Corpuscular Hemoglobin 38, Mean Corpuscular Hemoglobin Concent 34, Red Cell Distribution Width 13.3, Platelet Count 271, Mean Platelet Volume 11.1, Immature Granulocyte % (Auto) 0, Neutrophils (%) (Auto) 48, Lymphocytes (%) (Auto) 39, Monocytes (%) (Auto) 9, Eosinophils (%) (Auto) 3, Basophils (%) (Auto) 0, Neutrophils # (Auto) 4.6, Lymphocytes # (Auto) 3.8, Monocytes # (Auto) 0.8, Eosinophils # (Auto) 0.3, Basophils # (Auto) 0.0, Immature Granulocyte # (Auto) 0.0, Sodium Level 137, Potassium Level 3.8, Chloride Level 102, Carbon Dioxide Level 22, Anion Gap 13, Blood Urea Nitrogen 16, Creatinine 0.78, Estimat Glomerular Filtration Rate > 60, BUN/Creatinine Ratio 21, Glucose Level 129, Calcium Level 8.9, Corrected Calcium 9.1, Total Bilirubin 0.7, Aspartate Amino Transf (AST/SGOT) 48, Alanine Aminotransferase (ALT/SGPT) 29, Alkaline Phosphatase 79, Total Protein 7.2, Albumin 3.7 03/29/20 10:50: Glucometer 137 03/29/20 15:37: Glucometer 118 03/29/20 20:03: Glucometer 140 03/30/20 05:46: Glucometer 130 03/30/20 10:50: Glucometer 143 03/30/20 15:12: Glucometer 139 03/30/20 20:05: Glucometer 148 03/31/20 05:25: Glucometer 128 03/31/20 10:46: Glucometer 164 03/31/20 16:10: Glucometer 116 03/31/20 20:57: Glucometer 148 04/01/20 06:10: White Blood Count 8.4, Red Blood Count 3.10, Hemoglobin 11.8, Hematocrit 34, Mean Corpuscular Volume 109, Mean Corpuscular Hemoglobin 38, Mean Corpuscular Hemoglobin Concent 35, Red Cell Distribution Width 13.2, Platelet Count 287, Mean Platelet Volume 11.4, Immature Granulocyte % (Auto) 0, Neutrophils (%) (Auto) 42, Lymphocytes (%) (Auto) 38, Monocytes (%) (Auto) 12, Eosinophils (%) (Auto) 6, Basophils (%) (Auto) 1, Neutrophils # (Auto) 3.5, Lymphocytes # (Auto) 3.2, Monocytes # (Auto) 1.0, Eosinophils # (Auto) 0.5, Basophils # (Auto) 0.1, Immature Granulocyte # (Auto) 0.0, Sodium Level 137, Potassium Level 3.9, Chlor darrin Level 104, Carbon Dioxide Level 22, Anion Gap 11, Blood Urea Nitrogen 14, Creatinine 0.80, Estimat Glomerular Filtration Rate > 60, BUN/Creatinine Ratio 18, Glucose Level 138, Calcium Level 9.0, Corrected Calcium 9.3, Total Bilirubin 0.8, Aspartate Amino Transf (AST/SGOT) 49, Alanine Aminotransferase (ALT/SGPT) 34, Alkaline Phosphatase 69, Total Protein 7.0, Albumin 3.6 04/01/20 06:19: Glucometer 125 04/01/20 10:52: Glucometer 197 04/01/20 15:33: Glucometer 137 04/01/20 20:01: Glucometer 156 04/02/20 05:10: Glucometer 129 04/02/20 10:54: Glucometer 189 04/02/20 15:31: Glucometer 124 04/02/20 20:06: Glucometer 136 04/03/20 05:56: Glucometer 133 04/03/20 11:21: Glucometer 152 04/03/20 16:59: Glucometer 135 04/03/20 21:11: Glucometer 294 04/04/20 05:13: Glucometer 100 04/04/20 10:50: Glucometer 170 04/04/20 15:26: Glucometer 204 04/04/20 20:06: Glucometer 101 04/05/20 05:33: Glucometer 122 04/05/20 10:57: Glucometer 221 04/05/20 15:30: Glucometer 104 04/05/20 20:31: Glucometer 200 04/06/20 05:52: Glucometer 114 04/06/20 11:05: Glucometer 181 04/06/20 15:43: Glucometer 121 04/06/20 20:12: Glucometer 163 04/07/20 05:42: Glucometer 126 04/07/20 10:53: Glucometer 244 04/07/20 15:46: Glucometer 90 04/07/20 20:03: Glucometer 153 04/08/20 05:20: White Blood Count 12.3, Red Blood Count 3.52, Hemoglobin 12.9, Hematocrit 38, Mean Corpuscular Volume 108, Mean Corpuscular Hemoglobin 37, Mean Corpuscular Hemoglobin Concent 34, Red Cell Distribution Width 14.2, Platelet Count 618, Mean Platelet Volume 10.5, Immature Granulocyte % (Auto) 0, Neutrophils (%) (Auto) 56, Lymphocytes (%) (Auto) 28, Monocytes (%) (Auto) 9, Eosinophils (%) (Auto) 6, Basophils (%) (Auto) 1, Neutrophils # (Auto) 6.9, Lymphocytes # (Auto) 3.5, Monocytes # (Auto) 1.1, Eosinophils # (Auto) 0.7, Basophils # (Auto) 0.1, Immature Granulocyte # (Auto) 0.0, Sodium Level 139, Potassium Level 3.9, Chloride Level 104, Carbon Dioxide Level 23, Anion Gap 12, Blood Urea Nitrogen 14, Creatinine 0.92, Estimat Glomerular Filtration Rate 60, BUN/Creatinine Ratio 15, Glucose Level 129, Calcium Level 9.4, Corrected Calcium 9.5, Total Bilirubin 0.6, Aspartate Amino Transf (AST/SGOT) 37, Alanine Aminotransferase (ALT/SGPT) 27, Alkaline Phosphatase 64, Total Protein 7.7, Albumin 3.9, Procalcitonin 0.08 04/08/20 06:15: Lactic Acid Level 1.00 04/08/20 11:03: Glucometer 163 04/08/20 15:03: Glucometer 171 04/08/20 21:31: Glucometer 176 04/09/20 05:57: Glucometer 188 04/09/20 10:48: Glucometer 181 04/09/20 15:23: Glucometer 160 04/09/20 20:06: Glucometer 175 04/10/20 05:54: Glucometer 147 04/10/20 10:44: Glucometer 181 04/10/20 15:13: Glucometer 116 04/10/20 20:17: Glucometer 154 04/11/20 05:49: Glucometer 142 04/11/20 11:07: Glucometer 134 04/11/20 11:54: Urine Color YELLOW, Urine Clarity SL CLOUDY, Urine pH 6.0, Urine Specific Dale 1.020, Urine Protein NEGATIVE, Urine Glucose (UA) NEGATIVE, Urine Ketones NEGATIVE, Urine Nitrite POSITIVE, Urine Bilirubin NEGATIVE, Urine Urobilinogen 0.2, Urine Leukocyte Esterase 2+, Urine RBC (Auto) 1+, Urine RBC 2-5, Urine WBC 50-100, Urine Crystals NONE, Urine Bacteria LARGE, Urine Casts NONE, Urine Mucus NEGATIVE, Urine Culture Indicated YES 04/11/20 15:54: Glucometer 148 04/11/20 20:26: Glucometer 140 04/12/20 05:30: Glucometer 132 04/12/20 10:57: Glucometer 227 Discharge Home Medications: Active Scripts Active Glyburide 1.25 Mg Tablet 1.25 Mg PO DAILY Melatonin 3 Mg Tablet 3 Mg PO HS PRN Thera-M Tablet (Multivits,Ca,Minerals/Iron/FA) 1 Each Tablet 1 Ea PO DAILY@0700 Vitamin B-12 (Cyanocobalamin (Vitamin B-12)) 1,000 Mcg Tablet 1,000 Mcg PO DAILY@0700 Xanax Tablet (Alprazolam) 0.25 Mg Tab 0.25 Mg PO Q8H PRN Lipitor (Atorvastatin Calcium) 40 Mg Tablet 40 Mg PO DAILY Eliquis (Apixaban) 5 Mg Tablet 5 Mg PO BID Cefdinir 300 Mg Capsule 300 Mg PO BID Instructions to patient/family Please see electronic discharge instructions given to patient. Diagnosis/Problems Diagnosis/Problems (1) Acute ischemic right MCA stroke Status: Acute (2) Atrial fibrillation (3) History of UTI (4) Dementia (5) Left-sided weakness (6) COPD (chronic obstructive pulmonary disease) (7) B12 deficiency (8) Altered mental status Status: Acute (9) Diabetes mellitus (10) Hypertension Clinical Quality Measures DVT/VTE Risk/Contraindication: Risk Factor Score Per Nursin RFS Level Per Nursing on Admit: 4+=Very High KULDEEP PAYNE DO Apr 12, 2020 12:51
--- NOTE | 2020-04-12 14:12 | Therapy Team Discharge Summary ---
Therapy Discharge Summary Discharge Recommendations Date of Discharge Apr 12, 2020 at 11:36 Therapy D/C Recommendations: Physical Therapy Home Care Occupational Therapy Pt admits to ARU with CVA dx. Pt's QCs upon admission are as follows: eating 3, oral care 3, showering 1, UB dressing 2, footwear and toileting 1 (max Ax2). Pt and OT staff work towards higher fx IND through w/c mob, ADL retraining, ther ex, safety training, family training with , and problem solving. Pt is limited by decreased cognition/ attention/ problem solving, impulsivity, and decreased safety awareness/ carry over. Pt d/c's home with caregiver () support with following QCs: eating 5, oral care 6, showering 1, UB dress 2, footwear 2, toileting 2, LB dress 2. D/c OT at this time. Decreased UE Strength, Impaired Cognition, Impaired Coordination, Impaired Funct Balance, Impaired I ADL's, Impaired Self-Care Skills PT Entry Manager Goals Entry Manager Goals PT Jail Goals Time Frame: Apr 19, 2020 Roll Left to Right (QC): 3 (Emily) Sit to Lying (QC): 3 (Emily) Lying-Sitting on Side/Bed(QC): 3 Sit to Stand (QC): 3 (Emily) Chair/Phv-lr-Sumti Xfer(QC): 3 (Eimly) Car Transfer (QC): 3 (Emily) Does the Patient Walk: Yes Walk 10 feet (QC): 3 (Emily) Walk 10ft-Uneven Surface(QC): 88 Walk 50ft with 2 Turns (QC): 88 Walk 150 ft (QC): 88 Wheel 50 feet with 2 turns (QC: 3 1 Step (curb) (QC): 88 4 Steps (QC): 88 12 Steps (QC): 88 Picking up an Object (QC): 88 OT Jail Goals Jail Goals Time Frame: Apr 12, 2020 Eating (QC): 6 (not met) Oral Hygiene (QC): 6 (met) Shower/Bathe Self (QC): 3 (met) Upper Body Dressing (QC): 5 (not met') Lower Body Dressing (QC): 3 (not met) On/Off Footwear (QC): 3 (not met) Toileting Hygiene (QC): 3 (not met) Toilet/Commode Transfer (QC): 3 (Emily) Additional Goals: 1-Demonstrate ADL Tasks, 2-Verbalize Understanding, 3- ImproveStrength/Yuriy 1=Demonstrate adherence to instructed precautions during ADL tasks. 2=Patient will verbalize/demonstrate understanding of assistive devices/modifications for ADL. 3=Patient will improve strength/tolerance for activity to enable patient to perform ADL's. Speech Entry Manager Goals Jail Goals Patient will improve cognitive-communication necessary for safety and daily living tasks with minimal assist. SILVANA ESTRELLA OTR Apr 12, 2020 14:12
== END 2020-04-12 11:36 | disposition home health service (06) | DRG 57 ==
PROVIDERS: ADMIT Internal Medicine; ATTEND Internal Medicine
DX: I69.354 Hemiplegia and hemiparesis following cerebral infarction affecting left non-dominant side (principal); N39.0 Urinary tract infection, site not specified; I69.393 Ataxia following cerebral infarction; I69.392 Facial weakness following cerebral infarction; G30.9 Alzheimer's disease, unspecified; F02.80 Dementia in other diseases classified elsewhere, unspecified severity, without behavioral disturbance, psychotic disturbance, mood disturbance, and anxiety; J45.909 Unspecified asthma, uncomplicated; F32.9 Major depressive disorder, single episode, unspecified; F41.9 Anxiety disorder, unspecified; I12.9 Hypertensive chronic kidney disease with stage 1 through stage 4 chronic kidney disease, or unspecified chronic kidney disease; E11.22 Type 2 diabetes mellitus with diabetic chronic kidney disease; N18.2 Chronic kidney disease, stage 2 (mild); J44.9 Chronic obstructive pulmonary disease, unspecified; I48.0 Paroxysmal atrial fibrillation; E53.8 Deficiency of other specified B group vitamins; M19.91 Primary osteoarthritis, unspecified site; F43.10 Post-traumatic stress disorder, unspecified; E78.5 Hyperlipidemia, unspecified; Z79.01 Long term (current) use of anticoagulants; Z90.710 Acquired absence of both cervix and uterus
CPT/HCPCS: 36415; 80053; 81000; 82962; 83605; 84145; 85025; 87077; 87088; 87186; 93005

== ENCOUNTER 2020-09-15 16:21 | Emergency (ER) | payer MEDICARE ==
[~2020-09-15] VITALS: Ht 152.4 cm; Wt 81.6 kg
[~2020-09-15 16:21] MED LIST changes: +ALPR.25T PO; +APIX5TAB PO; +ATOR40TA PO; +ATOR40TA70 PO; +CEFD300C3 PO; +CNC1KV IM; +CYAN-41 PO; +GLYB1.253 PO; +LOSA25TA41 PO; +MELA3TAB39 PO; +MULT1TAB63 PO; +VITA1TAB17 PO
[2020-09-15] MEDS ORDERED: NS IV 500 ML 500 ML IV ONE (16:30)
[2020-09-15] MEDS ORDERED: fentaNYL INJ 100 MCG/2 ML AMP IVP ONE (16:30)
--- NOTE | 2020-09-15 16:34 | ED Fall/Injury ---
General Chief Complaint: Trauma-Non Activation Stated Complaint: FALL Source: patient Exam Limitations: no limitations (ZAHIRA HENSON) History of Present Illness Date Seen by Provider: Sep 15, 2020 Time Seen by Provider: 16:16 Initial Comments Patient arrives ER by EMS from home with chief complaint that family witnessed h er fall along the left side. No loss of consciousness nor nausea. She has a large hematoma over her left eye and pain in her left shoulder elbow and wrist. No previous injury there. No chest pain shortness of air fever chills cough nausea vomiting diarrhea or dysuria. She is a diabetic on Eliquis. EMS reports the family states she is at her baseline for dementia. (ZAHIRA HENSON) Allergies and Home Medications Allergies Coded Allergies: aspirin (Unverified Allergy, Mild, 04/01/09) Uncoded Allergies: [id number] (SULFA (SULFONAMIDE ANTIBIOTICS)) (Allergy, Mild, 04/01/09) Home Medications ALPRAZolam 0.25 Mg Tab, 0.25 MG PO Q8H PRN for ANXIETY Prescribed by: KULDEEP PAYNE on 04/11/202051 Apixaban 5 Mg Tablet, 5 MG PO BID Prescribed by: KULDEEP PAYNE on 04/11/202050 Atorvastatin Calcium 40 Mg Tablet, 40 MG PO DAILY Prescribed by: KULDEEP PAYNE on 04/11/202050 Cefdinir 300 Mg Capsule, 300 MG PO BID Prescribed by: KULDEEP PAYNE on 04/11/202050 Cephalexin 500 Mg Tablet, 500 MG PO BID Prescribed by: ZAHIRA HENSON on 09/15/201810 Cyanocobalamin (Vitamin B-12) 1,000 Mcg Tablet, 1,000 MCG PO DAILY@0700 Prescribed by: KULDEEP PAYNE on 04/11/202050 Glyburide 1.25 Mg Tablet, 1.25 MG PO DAILY Prescribed by: KULDEEP PAYNE on 04/11/202050 Hydrocodone/Acetaminophen 1 Each Tablet, 0.5-1 TAB PO Q6H PRN for PAIN-MODERATE (5-7) Prescribed by: ZAHIRA HENSON on 09/15/201811 Melatonin 3 Mg Tablet, 3 MG PO HS PRN for INSOMNIA Prescribed by: KULDEEP PAYNE on 04/11/202050 Multivits,Ca,Minerals/Iron/FA 1 Each Tablet, 1 EA PO DAILY@0700 Prescribed by: KULDEEP PAYNE on 04/11/202050 Patient Home Medication List Home Medication List Reviewed: Yes (ZAHIRA HENSON) Review of Systems Review of Systems Constitutional: No chills, No diaphoresis Eyes: Denies Blindness, Denies Blurred Vision Ears, Nose, Mouth, Throat: denies ear pain, denies ear discharge Respiratory: No cough, No short of breath Cardiovascular: No chest pain, No palpitations Gastrointestinal: No abdominal pain, No constipation, No diarrhea, No nausea Genitourinary: No discharge, No dysuria Musculoskeletal: see HPI, joint pain; No neck pain (ZAHIRA HENSON) All Other Systems Reviewed Negative Unless Noted: Yes (ZAHIRA HENSON) Past Mpubqif-Tfwtyo-Frfryw Hx Patient Social History Alcohol Use: Denies Use Drug of Choice: Denies Smoking Status: Never a Smoker 2nd Hand Smoke Exposure: No Recent Hopitalizations: No (ZAHIRA HENSON) Immunizations Up To Date Tetanus Booster (TDap): Less than 5yrs Date of Pneumonia Vaccine: Mar 17, 2010 (ZAHIRA HENSON) Past Medical History Surgeries: Yes (SURG BOTH WRIST CARP TUNNEL - LUMP REMOVED R BREAST, HYST, SPLENECTOMY) Gallbladder, Hysterectomy, Orthopedic Respiratory: Yes Asthma Cardiac: Yes (frequent dizzy spells and near syncope) Atrial Fibrillation Neurological: Yes (ALZHEIMERS, LEFT LEG WEAKNESS) Dementia, Stroke Genitourinary: No Bladder Infection, UTI-Chronic Gastrointestinal: No Musculoskeletal: Yes Arthritis Endocrine: Yes Diabetes, Non-Insulin dep Cancer: No Psychosocial: Yes Anxiety, PTSD, Depression Integumentary: No Recent Skin Changes Blood Disorders: No Adverse Reaction/Blood Tranf: Yes (HAD "BLOTHCHES ALL OVER") (ZAHIRA HENSON) Family Medical History No Pertinent Family Hx (ZAHIRA HENSON) Physical Exam Vital Signs Vital Signs - First Documented (SHAZIA HO APRN) Vital Signs Capillary Refill : (ZAHIRA HENSON) Height, Weight, BMI Height: 4'11.00" Weight: 170lbs. 0oz. 77.903093xp; 31.95 BMI Method:Stated General Appearance: WD/WN, mild distress HEENT: PERRL/EOMI (4 mm bilateral reactive), normal ENT inspection, TMs normal (Negative for hemotympanums), pharynx normal (Mildly dry) Neck: full range of motion, supple, normal inspection Cardiovascular: normal peripheral pulses, regular rate, rhythm Respiratory: chest non-tender, lungs clear, normal breath sounds, no respiratory distress, no accessory muscle use Peripheral Pulses: 2+ Dorsalis Pedis (R), 2+ Left Dors-Pedis (L), 2+ Radial Pulses (R), 2+ Radial Pulses (L) Gastrointestinal: non tender, soft Extremities: no pedal edema, no calf tenderness, other (Pain over anterior, left glenohumeral joint but not the ribs. Tenderness over distal, left wrist.) Neurologic/Psychiatric: alert, normal mood/affect, other (Oriented to person place but not time.) (ZAHIRA HENSON) [place] Coma Score Best Eye Response: (4) Open Spontaneously Best Verbal Response: (5) Oriented Best Motor Response: (6) Obeys Commands [place] Total: 15 (ZAHIRA HENSON) Procedures/Interventions Wound Location: Face Wound Length (cm): 4 Wound's Depth, Shape: sub Q Wound Explored: clean Irrigated w/ Saline (ccs): 20 Anesthesia: 1% Lidocaine Volume Anesthetic (ccs): 5 Suture: Prolene Suture Size: 5-0 Number of Sutures: 1 (continuous) Layer Closure?: 1 Number Deep Layer Sutures: 0 (SHAZIA HO APRN) Progress/Results/Core Measures Results/Orders Lab Results Laboratory Tests Test 09/15/20 16:35 09/15/20 17:36 Range/Units White Blood Count 10.5 4.3-11.0 10^3/uL Red Blood Count 4.94 3.80-5.11 10^6/uL Hemoglobin 13.5 11.5-16.0 g/dL Hematocrit 43 35-52 % Mean Corpuscular Volume 87 80-99 fL Mean Corpuscular Hemoglobin 27 25-34 pg Mean Corpuscular Hemoglobin Concent 31 L 32-36 g/dL Red Cell Distribution Width 13.2 10.0-14.5 % Platelet Count 449 H 130-400 10^3/uL Mean Platelet Volume 10.8 9.0-12.2 fL Immature Granulocyte % (Auto) 1 % Neutrophils (%) (Auto) 54 42-75 % Lymphocytes (%) (Auto) 33 12-44 % Monocytes (%) (Auto) 7 0-12 % Eosinophils (%) (Auto) 4 0-10 % Basophils (%) (Auto) 1 0-10 % Neutrophils # (Auto) 5.6 1.8-7.8 10^3/uL Lymphocytes # (Auto) 3.5 1.0-4.0 10^3/uL Monocytes # (Auto) 0.8 0.0-1.0 10^3/uL Eosinophils # (Auto) 0.4 H 0.0-0.3 10^3/uL Basophils # (Auto) 0.1 0.0-0.1 10^3/uL Immature Granulocyte # (Auto) 0.1 0.0-0.1 10^3/uL Sodium Level 139 135-145 MMOL/L Potassium Level 4.0 3.6-5.0 MMOL/L Chloride Level 103 98-107 MMOL/L Carbon Dioxide Level 24 21-32 MMOL/L Anion Gap 12 5-14 MMOL/L Blood Urea Nitrogen 9 7-18 MG/DL Creatinine 1.00 0.60-1.30 MG/DL Estimat Glomerular Filtration Rate 55 BUN/Creatinine Ratio 9 Glucose Level 264 H 70-105 MG/DL Calcium Level 8.9 8.5-10.1 MG/DL Corrected Calcium 9.1 8.5-10.1 MG/DL Total Bilirubin 0.7 0.1-1.0 MG/DL Aspartate Amino Transf (AST/SGOT) 21 5-34 U/L Alanine Aminotransferase (ALT/SGPT) 17 0-55 U/L Alkaline Phosphatase 79 40-136 U/L C-Reactive Protein High Sensitivity 0.45 0.00-0.50 MG/DL Total Protein 7.6 6.4-8.2 GM/DL Albumin 3.7 3.2-4.5 GM/DL Urine Color YELLOW Urine Clarity CLOUDY Urine pH 6.5 5-9 Urine Specific [place] 1.020 1.016-1.022 Urine Protein NEGATIVE NEGATIVE Urine Glucose (UA) 3+ H NEGATIVE Urine Ketones NEGATIVE NEGATIVE Urine Nitrite POSITIVE H NEGATIVE Urine Bilirubin NEGATIVE NEGATIVE Urine Urobilinogen 2.0 < = 1.0 MG/DL Urine Leukocyte Esterase 1+ H NEGATIVE Urine RBC (Auto) NEGATIVE NEGATIVE Urine RBC NONE /HPF Urine WBC 25-50 H /HPF Urine Squamous Epithelial Cells RARE /HPF Urine Crystals NONE /LPF Urine Bacteria LARGE H /HPF Urine Casts NONE /LPF Urine Mucus NEGATIVE /LPF Urine Yeast FEW H /HPF Urine Culture Indicated YES (SHAZIA HO APRN) Medications Given in ED Current Medications Medications Dose Ordered Sig/Jose Route Start Time Stop Time Status Last Admin Dose Admin Fentanyl Citrate 25 mcg ONCE ONCE IVP 09/15/20 16:30 09/15/20 16:31 DC 09/15/20 17:09 25 MCG Insulin Human Regular 4 unit ONCE ONCE SC 09/15/20 17:15 09/15/20 17:16 DC 09/15/20 17:28 4 UNIT Sodium Chloride 500 ml @ 0 mls/hr Q0M ONCE IV 09/15/20 16:30 09/15/20 16:31 DC 09/15/20 17:09 500 MLS/HR (SHAZIA HO APRN) Vital Signs/I&O 09/15/20 09/15/20 16:22 16:22 Temp 35.8 35.8 Pulse 91 91 Resp 18 18 B/P (MAP) 163/84 (110) 163/84 (110) Pulse Ox 98 98 O2 Delivery Room Air Room Air (SHAZIA HO APRN) Progress Progress Note : Time: 16:[address] of the head and cervical spine, plain films of the left shoulder, chest, forearm on the left side. Looking for signs of infection the might explain why she had a fall we will get some urine blood, Accu-Chek. (ZAHIRA HENSON) Diagnostic Imaging Diagonstic Imaging: CT Plain Films/CT/US/NM/MRI: c-spine, head Comments [facility] [place] NAME: ENRIQUE LEWIS [facility] REC#: [id number] PT STATUS: REG ER : 1950 PHYSICIAN: ZAHIRA HENSON MD ADMIT DATE: 09/15/20/ER Draft Date of Exam:09/15/20 CT HEAD/CERVICAL SPINE WO PROCEDURE: CT head and CT cervical spine without contrast. TECHNIQUE: Multiple contiguous axial images were obtained through the brain and cervical spine without the use of intravenous contrast. Sagittal and coronal reformations through the cervical spine were then performed. Auto Exposure Controls were utilized during the CT exam to meet ALARA standards for radiation dose reduction. INDICATION: Trauma, laceration above eye. Fall. COMPARISON: CT head of 03/22/2020. FINDINGS: CT head: No intracranial hyperdense hemorrhage or space-occupying mass. Encephalomalacia is present in the right frontal parietal region from old infarcts. No features of acute territorial infarct by CT. Global atrophy is present. No hydrocephalus or midline shift. Basilar cisterns are widely patent. No skull fracture. Paranasal sinuses and mastoid air cells are clear. No fracture within the visualized nasal bones. CT cervical spine: No acute fracture or traumatic malalignment in the cervical spine. Visualized portions of upper ribs are intact. No high-grade spinal canal narrowing. No retropharyngeal fluid collection. Visualized airway is patent. IMPRESSION: 1. No acute intracranial hemorrhage or skull fracture. 2. No acute fracture or traumatic malalignment in the cervical spine. 3. Multiple sites of old infarcts in the right frontal parietal lobes. Dictated on workstation # [id number] Dict: 09/15/20 1706 Trans: 09/15/201711 PJE [id number] Interpreted by: CHRISS KUO MD Electronically signed by: Reviewed: Reviewed by Me Diagonstic Imaging: Xray Plain Films/CT/US/NM/MRI: chest Comments [facility] [place] NAME: ENRIQUE LEWIS [facility] REC#: [id number] PT STATUS: REG ER : 1950 PHYSICIAN: ZAHIRA HENSON MD ADMIT DATE: 09/15/20/ER Signed Date of Exam:09/15/20 CHEST 1 VIEW, AP/PA ONLY INDICATION: Shoulder pain. COMPARISON: Prior examination from 07/31/2019. FINDINGS: The heart size, mediastinal configuration, and pulmonary vascularity are within normal limits. There is no pleural effusion, pneumothorax or pneumonia. The osseous structures are unremarkable. IMPRESSION: No acute cardiopulmonary abnormality. Dictated by: Dictated on workstation # [id number] Dict: 09/15/20 1651 Trans: 09/15/20 1735 PJE [id number] Interpreted by: KAT YANEZ MD Electronically signed by: KAT YANEZ MD 09/15/201734 Reviewed: Reviewed by Me Diagonstic Imaging: Xray Plain Films/CT/US/NM/MRI: other (Left shoulder) Comments [facility], [place] NAME: ENRIQUE LEWIS [facility] REC#: [id number] PT STATUS: REG ER : 1950 PHYSICIAN: ZAHIRA HENSON MD ADMIT DATE: 09/15/20/ER Signed Date of Exam:09/15/20 SHOULDER, LEFT, 3 VIEWS INDICATION: Fall. FINDINGS: There is a minimally comminuted fracture of the left humeral head and neck. There is arthrosis of the acromioclavicular joint. Left lung is clear. Soft tissues are unremarkable. IMPRESSION: Minimally displaced and mildly comminuted fractured of the left humeral head and neck. Dictated by: Dictated on workstation # [id number] Dict: 09/15/201649 Trans: 09/15/201734 PJE [id number] Interpreted by: KAT YANEZ MD Electronically signed by: KAT YANEZ MD 09/15/201734 Reviewed: Reviewed by Dc Diagonstic Imaging: Xray Plain Films/CT/US/NM/MRI: forearm (Left) Comments [facility] [place] NAME: ENRIQUE LEWIS [facility] REC#: [id number] PT STATUS: REG ER : 1950 PHYSICIAN: ZAHIRA HENSON MD ADMIT DATE: 09/15/20/ER Draft Date of Exam:09/15/20 FOREARM, LEFT, 2 VIEWS INDICATION: Trauma, fall. COMPARISON: None available. TECHNIQUE: Two views of the left forearm were obtained. FINDINGS: No fracture. Elbow and wrist are grossly in normal alignment. No radiopaque foreign body or soft tissue gas. IMPRESSION: No acute fracture within the left forearm. Dictated on workstation # [id number] Dict: 09/15/201651 Trans: 09/15/201653 [facility] [id number] Interpreted by: CHRISS KUO MD Electronically signed by: Reviewed: Reviewed by Me (ZAHIRA HENSON) Departure Impression Primary Impression: Fall Qualified Codes: W19.XXXA - Unspecified fall, initial encounter Additional Impressions: Shoulder fracture, left Qualified Codes: S42.92XA - Fracture of left shoulder girdle, part unspecified, initial encounter for closed fracture Hematoma Laceration of forehead Qualified Codes: S01.81XA - Laceration without foreign body of other part of head, initial encounter Disposition: HOME, SELF-CARE (ERASED) Condition: Stable Departure-Patient Inst. Decision time for Depature: 18:00 (ZAHIRA HENSON) Referrals: VERONICA CARY MD (PCP) Primary Care Physician HERMILO VERDUGO (Family) Primary Care Physician GISELLE MAC MD, ROBERT F DO ZAFUTA, MICHAEL P MD Patient Instructions: Laceration Repair With Stitches (DC), Shoulder Fracture Add. Discharge Instructions: Keep your arm in the shoulder immobilizer until you are seen by the orthopedic surgeon. Call the orthopedic surgeon of your choice tomorrow and schedule appointment for the next week. You can use Dr. LANDA or Dr. Mac locally or [facility] in [place], [place]. Keep the wound clean with regular soap and water. A small tincture of Vaseline or triple antibiotic ointment underneath bandage to be changed daily is recommended. You need to return to the ER in 7 to 10 days to have the sutures removed at no additional charge. Return to the ER sooner if you are having other worsening symptoms. Cephalexin 1 capsule twice a day for the next 3 days to prevent infection. Hydrocodone 1/2 to 1 tablet every 6 hours as necessary for severe breakthrough pain. Tylenol 650 mg every 8 hours as necessary for pain. Ice applied to the shoulder and forehead for 20 minutes every 2 hours for the first 2 to 3 days. All discharge instructions reviewed with patient and/or family. Voiced understanding. Scripts Cephalexin (Cephalexin) 500 Mg Tablet 500 MG PO BID for 3 Days, #6 TAB 0 Refills Prov: ZAHIRA EHNSON 09/15/20 Hydrocodone/Acetaminophen (Hydrocodone-Acetamin 5-325 mg) 1 Each Tablet 0.5-1 TAB PO Q6H PRN for PAIN-MODERATE (5-7), #8 TAB 0 Refills Prov: ZAHIRA HENSON 09/15/20 ZAHIRA HENSON Sep 15, 2020 16:34 SHAZIA HO APRN Sep 15, 2020 18:24
[2020-09-15 16:45] LABS: BASOPHILS # (AUTO) 0.1 10^3/uL (0.0-0.1); BASOPHILS % (AUTO) 1 % (0-10); EOSINOPHILS # (AUTO) 0.4 10^3/uL (0.0-0.3); EOSINOPHILS % (AUTO) 4 % (0-10); HEMATOCRIT 43 % (35-52); HEMOGLOBIN 13.5 g/dL (11.5-16.0); LYMPHOCYTES # (AUTO) 3.5 10^3/uL (1.0-4.0); LYMPHOCYTES % (AUTO) 33 % (12-44); MEAN CORPUSCULAR HEMOGLOBIN 27 pg (25-34); MEAN CORPUSCULAR HGB CONC 31 g/dL (32-36); MEAN CORPUSCULAR VOLUME 87 fL (80-99); MEAN PLATELET VOLUME 10.8 fL (9.0-12.2); MONOCYTES # (AUTO) 0.8 10^3/uL (0.0-1.0); MONOCYTES % (AUTO) 7 % (0-12); NEUTROPHILS # (AUTO) 5.6 10^3/uL (1.8-7.8); NEUTROPHILS % (AUTO) 54 % (42-75); PLATELET COUNT 449 10^3/uL (130-400); WHITE BLOOD COUNT 10.5 10^3/uL (4.3-11.0)
--- NOTE | 2020-09-15 16:52 | Diagnostic Imaging Report ---
INDICATION: Shoulder pain. COMPARISON: Prior examination from 07/31/2019. FINDINGS: The heart size, mediastinal configuration, and pulmonary vascularity are within normal limits. There is no pleural effusion, pneumothorax or pneumonia. The osseous structures are unremarkable. IMPRESSION: No acute cardiopulmonary abnormality. Dictated by: Dictated on workstation # [id number]
--- NOTE | 2020-09-15 16:54 | Diagnostic Imaging Report ---
INDICATION: Fall. FINDINGS: There is a minimally comminuted fracture of the left humeral head and neck. There is arthrosis of the acromioclavicular joint. Left lung is clear. Soft tissues are unremarkable. IMPRESSION: Minimally displaced and mildly comminuted fractured of the left humeral head and neck. Dictated by: Dictated on workstation # [id number]
--- NOTE | 2020-09-15 16:55 | Diagnostic Imaging Report ---
INDICATION: Trauma, fall. COMPARISON: None available. TECHNIQUE: Two views of the left forearm were obtained. FINDINGS: No fracture. Elbow and wrist are grossly in normal alignment. No radiopaque foreign body or soft tissue gas. IMPRESSION: No acute fracture within the left forearm. Dictated by: Dictated on workstation # [id number]
[2020-09-15 17:01] LABS: ALBUMIN 3.7 GM/DL (3.2-4.5); BILIRUBIN,TOTAL 0.7 MG/DL (0.1-1.0); CALCIUM 8.9 MG/DL (8.5-10.1); TOTAL PROTEIN 7.6 GM/DL (6.4-8.2)
--- NOTE | 2020-09-15 17:13 | Diagnostic Imaging Report ---
PROCEDURE: CT head and CT cervical spine without contrast. TECHNIQUE: Multiple contiguous axial images were obtained through the brain and cervical spine without the use of intravenous contrast. Sagittal and coronal reformations through the cervical spine were then performed. Auto Exposure Controls were utilized during the CT exam to meet ALARA standards for radiation dose reduction. INDICATION: Trauma, laceration above eye. Fall. COMPARISON: CT head of 03/22/2020. FINDINGS: CT head: No intracranial hyperdense hemorrhage or space-occupying mass. Encephalomalacia is present in the right frontal parietal region from old infarcts. No features of acute territorial infarct by CT. Global atrophy is present. No hydrocephalus or midline shift. Basilar cisterns are widely patent. No skull fracture. Paranasal sinuses and mastoid air cells are clear. No fracture within the visualized nasal bones. CT cervical spine: No acute fracture or traumatic malalignment in the cervical spine. Visualized portions of upper ribs are intact. No high-grade spinal canal narrowing. No retropharyngeal fluid collection. Visualized airway is patent. IMPRESSION: 1. No acute intracranial hemorrhage or skull fracture. 2. No acute fracture or traumatic malalignment in the cervical spine. 3. Multiple sites of old infarcts in the right frontal parietal lobes. Dictated by: Dictated on workstation # [id number]
[2020-09-15] MEDS ORDERED: inSUlin (REGULAR) HUMAN 1 UNIT/0.01 ML (CHARGE PER UNIT) SC ONE (17:15)
[2020-09-15 17:41] LABS: BILIRUBIN,URINE NEGATIVE (NEGATIVE); CLARITY,URINE CLOUDY; COLOR,URINE YELLOW; GLUCOSE, URINE (UA) 3+ (NEGATIVE); KETONES,URINE NEGATIVE (NEGATIVE); LEUKOCYTE ESTERASE ,URINE 1+ (NEGATIVE); NITRITE,URINE POSITIVE (NEGATIVE); PH,URINE 6.5 (5-9); PROTEIN,URINE NEGATIVE (NEGATIVE)
[2020-09-15 17:48] LABS: BACTERIA,URINE LARGE /HPF; SQUAMOUS EPITHELIAL CELL,UR RARE /HPF; WBC,URINE 25-50 /HPF
[2020-09-15 17:49] LABS: YEAST,URINE FEW /HPF
[2020-09-15] MEDS ORDERED: ACHD5005 PO (18:11)
[2020-09-15] MEDS ORDERED: CEPH500T PO (18:11)
[2020-09-15] MEDS ORDERED: RX-HYDROCODONE/APAP 5/325 MG #4 TAB PK PO ONE (18:28)
[2020-09-15] MEDS ORDERED: RX-CEPHALEXIN (KEFLEX) 250 MG CAP PPK#4 PO ONE (18:28)
[2020-09-15 18:40] VITALS: BP 181/103
== END 2020-09-15 18:40 | disposition home or self-care (01) ==
LOC: EDUNIT# 16:21 → ER 16:22
DX: S42.292A Other displaced fracture of upper end of left humerus, initial encounter for closed fracture (principal); S01.81XA Laceration without foreign body of other part of head, initial encounter; S05.12XA Contusion of eyeball and orbital tissues, left eye, initial encounter; M25.532 Pain in left wrist; E11.9 Type 2 diabetes mellitus without complications; I48.91 Unspecified atrial fibrillation; F41.9 Anxiety disorder, unspecified; F32.9 Major depressive disorder, single episode, unspecified; F43.10 Post-traumatic stress disorder, unspecified; G30.9 Alzheimer's disease, unspecified; F02.80 Dementia in other diseases classified elsewhere, unspecified severity, without behavioral disturbance, psychotic disturbance, mood disturbance, and anxiety; Z86.73 Personal history of transient ischemic attack (TIA), and cerebral infarction without residual deficits; Z79.02 Long term (current) use of antithrombotics/antiplatelets; Z79.82 Long term (current) use of aspirin; Z88.2 Allergy status to sulfonamides; Z88.6 Allergy status to analgesic agent; W19.XXXA Unspecified fall, initial encounter; Y92.009 Unspecified place in unspecified non-institutional (private) residence as the place of occurrence of the external cause
CPT/HCPCS: 36415; 70450; 71045; 72125; 73030; 73090; 80053; 81000; 85025; 86141; 87077; 87088; 87186

== ENCOUNTER 2021-05-21 12:50 | Emergency (ER) | payer MEDICARE ==
[~2021-05-21] VITALS: Ht 162 cm; Wt 84.0 kg
[~2021-05-21 12:50] MED LIST changes: +ACHD5005 PO; +ACYC-112 PO; -ACYC400T PO; +ACYC400T21 PO; +CEPH500T PO
--- NOTE | 2021-05-21 13:10 | ED Lower Extremity ---
General Stated Complaint: R LEG PAIN Source: patient, EMS Exam Limitations: no limitations History of Present Illness Date Seen by Provider: May 21, 2021 Time Seen by Provider: 13:04 Initial Comments 72-year-old female with past medical history of Alzheimer's as well as previous stroke with left-sided residual weakness on Eliquis coming in via EMS from home due to right lower extremity pain. Pain has been ongoing for 4 months, no falls, has been chronic, worsening. She says it is in her hip and right knee. Still has been hobbling around the house but having difficulty with ambulation. Has not taken anything for pain. The pain is moderate, constant, sharp, worse with movement, better with rest. Allergies and Home Medications Allergies Coded Allergies: aspirin (Unverified Allergy, Mild, 04/01/09) Uncoded Allergies: [id number] (SULFA (SULFONAMIDE ANTIBIOTICS)) (Allergy, Mild, 04/01/09) Patient Home Medication List Home Medication List Reviewed: Yes ALPRAZolam (Xanax Tablet) 0.25 Mg Tab, 0.25 MG PO Q8H PRN for ANXIETY Prescribed by: KULDEEP PAYNE on 04/11/202051 Apixaban (Eliquis) 5 Mg Tablet, 5 MG PO BID Prescribed by: KULDEEP PAYNE on 04/11/202050 Atorvastatin Calcium (Lipitor) 40 Mg Tablet, 40 MG PO DAILY Prescribed by: KULDEEP PAYNE on 04/11/202050 Cefdinir (Cefdinir) 300 Mg Capsule, 300 MG PO BID Prescribed by: KULDEEP PAYNE on 04/11/202050 Cephalexin (Cephalexin) 500 Mg Tablet, 500 MG PO BID Prescribed by: ZAHIRA HENSON on 09/15/201810 Cyanocobalamin (Vitamin B-12) (Vitamin B-12) 1,000 Mcg Tablet, 1,000 MCG PO DAILY@0700 Prescribed by: KULDEEP PAYNE on 04/11/202050 Glyburide (Glyburide) 1.25 Mg Tablet, 1.25 MG PO DAILY Prescribed by: KULDEEP PAYNE on 04/11/202050 Hydrocodone/Acetaminophen (Hydrocodone-Acetamin 5-325 mg) 1 Each Tablet, 0.5-1 TAB PO Q6H PRN for PAIN-MODERATE (5-7) Prescribed by: ZAHIRA HENSON on 09/15/201811 Melatonin (Melatonin) 3 Mg Tablet, 3 MG PO HS PRN for INSOMNIA Prescribed by: KULDEEP PAYNE on 04/11/202050 Multivits,Ca,Minerals/Iron/FA (Thera-M Tablet) 1 Each Tablet, 1 EA PO DAILY@0700 Prescribed by: KULDEEP PAYNE on 04/11/202050 Review of Systems Constitutional: no symptoms reported EENTM: No blurred vision Respiratory: no symptoms reported Cardiovascular: no symptoms reported Gastrointestinal: no symptoms reported Genitourinary: no symptoms reported Musculoskeletal: joint pain Skin: no symptoms reported Psychiatric/Neurological: No Symptoms Reported All Other Systems Reviewed Negative Unless Noted: Yes Past Pgsjkzo-Dczrgd-Sveloq Hx Patient Social History Tobacco Use?: No Immunizations Up To Date Tetanus Booster (TDap): Less than 5yrs Past Medical History Surgeries: Yes (SURG BOTH WRIST CARP TUNNEL - LUMP REMOVED R BREAST, HYST, SPLENECTOMY) Gallbladder, Hysterectomy, Orthopedic Respiratory: Yes Asthma Cardiac: Yes (frequent dizzy spells and near syncope) Atrial Fibrillation Neurological: Yes (ALZHEIMERS, LEFT LEG WEAKNESS) Dementia, Stroke Genitourinary: No Bladder Infection, UTI-Chronic Gastrointestinal: No Musculoskeletal: Yes Arthritis Endocrine: Yes Diabetes, Non-Insulin dep Cancer: No Psychosocial: Yes Anxiety, PTSD, Depression Integumentary: No Recent Skin Changes Blood Disorders: No Adverse Reaction/Blood Tranf: Yes (HAD "BLOTHCHES ALL OVER") Family Medical History No Pertinent Family Hx Physical Exam Vital Signs Vital Signs - First Documented 05/21/21 13:05 Temp 36.2 Pulse 110 Resp 18 B/P (MAP) 143/85 (104) Pulse Ox 97 Capillary Refill : Height, Weight, BMI Height: 4'11.00" Weight: 170lbs. 0oz. 77.540255yq; 35.00 BMI Method:Stated General Appearance: WD/WN, no apparent distress HEENT: PERRL/EOMI, normal ENT inspection, pharynx normal Neck: non-tender, full range of motion, supple, normal inspection Cardiovascular: regular rate, rhythm, no edema, no murmur Respiratory: chest non-tender, lungs clear, normal breath sounds, no respiratory distress, no accessory muscle use Gastrointestinal: normal bowel sounds, non tender, soft; No distended, No guarding Hips: left hip non-tender; bilateral hip normal inspection; left hip normal range of motion; bilateral hip no evidence of injury; right hip soft tissue tenderness Legs: bilateral leg non-tender, bilateral leg normal inspection, bilateral leg normal range of motion, bilateral leg no evidence of injury Knees: bilateral knee non-tender, bilateral knee normal inspection, bilateral knee normal range of motion, bilateral knee no evidence of injury; right knee bone tenderness, right knee soft tissue tenderness, right knee other (Pain with range of motion) Ankles: bilateral ankle non-tender, bilateral ankle normal inspection, bilateral ankle normal range of motion, bilateral ankle no evidence of injury Feet: bilateral foot non-tender, bilateral foot normal inspection, bilateral foot normal range of motion, bilateral foot no evidence of injury Neurologic/Tendon: normal sensation, normal motor functions, normal tendon functions Neurologic/Psychiatric: no motor/sensory deficits, alert, normal mood/affect, oriented x 3 Skin: normal color, warm/dry Lymphatic: no adenopathy Procedures/Interventions Suture Size: 5-0 Progress/Results/Core Measures Results/Orders My Orders Orders - RAMESH EDDY MD Knee, Right, 3 Views (05/21/21 13:07) Pelvis With Right Hip 2-3views (05/21/21 13:07) Acetaminophen Tablet (Tylenol Tablet) (05/21/21 13:15) Medications Given in ED Current Medications Medications Dose Ordered Sig/Jose Route Start Time Stop Time Status Last Admin Dose Admin Acetaminophen 1,000 mg ONCE ONCE PO 05/21/21 13:15 05/21/21 13:16 DC 05/21/21 13:30 1,000 MG Vital Signs/I&O 05/21/21 13:05 Temp 36.2 Pulse 110 Resp 18 B/P (MAP) 143/85 (104) Pulse Ox 97 Progress Progress Note : Progress Note 71-year-old female with above history coming in due to mostly right knee pain. ABCs were intact and vitals were stable on presentation. She has no clinical signs of a DVT in her leg look equal size. No pain with squeeze of her calf, negative Homans' sign. X-ray of the pelvis and right knee ordered and interpreted by me showing no fracture or dislocation. Given Tylenol for pain which significantly helped. Patient's came and added to the history, he says he normally has to help her ambulate around the house, and he has been able able to over the past couple weeks because of the pain. He has already contacted a prison, and has bed available if needed. I encouraged him to take earlier given she mostly needs help with ADLs. He was then discharged home in stable condition with strict return precautions. Update at 1600, discharge has been delayed because the patient is not really able to get in the car with her , so they are calling the prison and we are attempting to directly transfer her there via ambulance. Diagnostic Imaging Diagonstic Imaging: Xray Plain Films/CT/US/NM/MRI: pelvis, knee Comments [facility]. [place], [place] NAME: ENRIQUE LEWIS [facility] REC#: [id number] PT STATUS: REG ER : 1950 PHYSICIAN: RAMESH EDDY MD ADMIT DATE: 05/21/21/ER Draft Date of Exam:05/21/21 KNEE, RIGHT, 3 VIEWS EXAMINATION: KNEE, RIGHT, 3 VIEWS. INDICATION: Knee pain. COMPARISON: None available. TECHNIQUE: Three views of the right knee. FINDINGS: No knee joint effusion. No fracture or concerning focal osseous lesion. Joint spaces are well-preserved. Tiny marginal osteophytes in the patellofemoral compartment. IMPRESSION: No acute osseous abnormality about the right knee. Dictated on workstation # [id number] Dict: 05/21/21 1353 Trans: 05/21/21 [facility]6 [id number] Interpreted by: CHRISS KUO MD Electronically signed by: [facility]. [place], [place] NAME: [facility]IAN[facility] REC#: [id number] PT STATUS: REG ER : 1950 PHYSICIAN: RAMESH EDDY MD ADMIT DATE: 05/21/21/ER Draft Date of Exam:05/21/21 PELVIS WITH RIGHT HIP 2-3VIEWS PELVIS WITH RIGHT HIP 2-3VIEWS INDICATION: Pelvic pain COMPARISON: 04/29/2019 TECHNIQUE: AP view of the pelvis with AP and frog-leg views of right hip. FINDINGS: No fracture in the proximal right femur. There is no displaced fracture within the pelvis. Sclerotic focus in the right ischium is unchanged and most compatible with bone island given stability. Mild degenerative arthritis of both hips. IMPRESSION: No acute osseous abnormality about the right hip. Dictated on workstation # [id number] Dict: 05/21/21 1354 Trans: 05/21/21 1356 [facility] [id number] Interpreted by: CHRISS KUO MD Electronically signed by: Departure Impression Primary Impression: Knee pain Qualified Codes: M25.561 - Pain in right knee Additional Impression: Osteoarthritis Qualified Codes: M19.91 - Primary osteoarthritis, unspecified site Disposition: 01 HOME, SELF-CARE Condition: Stable Departure-Patient Inst. Decision time for Depature: 14:05 Referrals: VERONICA CARY MD (PCP) Primary Care Physician HERMILO VERDUGO (Family) Primary Care Physician Patient Instructions: Knee Pain ED Add. Discharge Instructions: X-rays of her pelvis, hip, and knee were negative for any broken bones or dislocation. She does have arthritis. Please follow-up with your regular doctor. I do recommend sending her to the rehab facility as they can do physical therapy and help get her stronger and give her pain medication. RAMESH EDDY MD May 21, 2021 13:10
[2021-05-21] MEDS ORDERED: ACETAMINOPHEN 500 MG TAB (TYLENOL) PO ONE (13:15)
--- NOTE | 2021-05-21 13:57 | Diagnostic Imaging Report ---
PELVIS WITH RIGHT HIP 2-3VIEWS INDICATION: Pelvic pain COMPARISON: 04/29/2019 TECHNIQUE: AP view of the pelvis with AP and frog-leg views of right hip. FINDINGS: No fracture in the proximal right femur. There is no displaced fracture within the pelvis. Sclerotic focus in the right ischium is unchanged and most compatible with bone island given stability. Mild degenerative arthritis of both hips. IMPRESSION: No acute osseous abnormality about the right hip. Dictated by: Dictated on workstation # [id number]
--- NOTE | 2021-05-21 13:57 | Diagnostic Imaging Report ---
EXAMINATION: KNEE, RIGHT, 3 VIEWS. INDICATION: Knee pain. COMPARISON: None available. TECHNIQUE: Three views of the right knee. FINDINGS: No knee joint effusion. No fracture or concerning focal osseous lesion. Joint spaces are well-preserved. Tiny marginal osteophytes in the patellofemoral compartment. IMPRESSION: No acute osseous abnormality about the right knee. Dictated by: Dictated on workstation # [id number]
[2021-05-21 18:08] VITALS: BP 136/74
== END 2021-05-21 18:15 | disposition home or self-care (01) ==
LOC: EDUNIT# 12:50 → ER 13:02
DX: M17.11 Unilateral primary osteoarthritis, right knee (principal); J45.909 Unspecified asthma, uncomplicated; G30.9 Alzheimer's disease, unspecified; F02.80 Dementia in other diseases classified elsewhere, unspecified severity, without behavioral disturbance, psychotic disturbance, mood disturbance, and anxiety; F41.9 Anxiety disorder, unspecified; F32.9 Major depressive disorder, single episode, unspecified; E11.9 Type 2 diabetes mellitus without complications; I48.91 Unspecified atrial fibrillation; Z20.822 Contact with and (suspected) exposure to COVID-19; Z86.73 Personal history of transient ischemic attack (TIA), and cerebral infarction without residual deficits; Z79.01 Long term (current) use of anticoagulants; Z79.899 Other long term (current) drug therapy
CPT/HCPCS: 73562; 87636

== ENCOUNTER 2021-06-14 07:47 | Emergency (ER) | payer MEDICARE ==
[~2021-06-14] VITALS: Ht 149.8 cm; Wt 84.0 kg
--- NOTE | 2021-06-14 08:15 | ED Upper Extremity ---
General Chief Complaint: Upper Extremity Stated Complaint: PAIN LEFT SHOULDER/ARM Source: other (care home) Exam Limitations: clinical condition (alzheimer;s) History of Present Illness Date Seen by Provider: Jun 14, 2021 Time Seen by Provider: 08:00 Initial Comments Patient is a 71-year-old who has Alzheimer's lives in a local care home sent over by care home staff for complaints of left arm/shoulder pain. Per review of the medical record the patient evidently broke the head of her humerus in September of this year. [facility] staff was called by JAIMIE Lang her ER nurse and states that they were lifting her out of the shower yesterday, apparently some pressure was put on her left upper arm and staff reports they heard a loud "pop". Patient has been complaining of pain ever since that time. On arrival to the ER she is pleasantly demented, articulates no complaints. However with manipulation and movement of the left elbow and left shoulder she has significant distress. Vital signs appear stable. She is resting comfortably in a wheelchair on my initial evaluation. She states su negative review of systems. She is unable to give me any HPI secondary to her Alzheimer's. Onset: yesterday Severity: moderate Pain/Injury Location: left shoulder, left arm, left elbow Method of Injury: twisted Modifying Factors: Improves With Immobilization; Worse With Movement Allergies and Home Medications Allergies Coded Allergies: aspirin (Unverified Allergy, Mild, 04/01/09) Uncoded Allergies: [id number] (SULFA (SULFONAMIDE ANTIBIOTICS)) (Allergy, Mild, 04/01/09) Patient Home Medication List Home Medication List Reviewed: Yes ALPRAZolam (Xanax Tablet) 0.25 Mg Tab, 0.25 MG PO Q8H PRN for ANXIETY Prescribed by: KULDEEP PAYNE on 04/11/202051 Apixaban (Eliquis) 5 Mg Tablet, 5 MG PO BID Prescribed by: KULDEEP PAYNE on 04/11/202050 Atorvastatin Calcium (Lipitor) 40 Mg Tablet, 40 MG PO DAILY Prescribed by: KULDEEP PAYNE on 04/11/202050 Cefdinir (Cefdinir) 300 Mg Capsule, 300 MG PO BID Prescribed by: KULDEEP PAYNE on 04/11/202050 Cephalexin (Cephalexin) 500 Mg Tablet, 500 MG PO BID Prescribed by: ZAHIRA HENSON on 09/15/201810 Cyanocobalamin (Vitamin B-12) (Vitamin B-12) 1,000 Mcg Tablet, 1,000 MCG PO DAILY@0700 Prescribed by: KULDEEP PAYNE on 04/11/202050 Glyburide (Glyburide) 1.25 Mg Tablet, 1.25 MG PO DAILY Prescribed by: KULDEEP PAYNE on 04/11/202050 Hydrocodone/Acetaminophen (Hydrocodone-Acetamin 5-325 mg) 1 Each Tablet, 0.5-1 TAB PO Q6H PRN for PAIN-MODERATE (5-7) Prescribed by: ZAHIRA HENSON on 09/15/201811 Melatonin (Melatonin) 3 Mg Tablet, 3 MG PO HS PRN for INSOMNIA Prescribed by: KULDEEP PAYNE on 04/11/202050 Multivits,Ca,Minerals/Iron/FA (Thera-M Tablet) 1 Each Tablet, 1 EA PO DAILY@0700 Prescribed by: KULDEEP PAYNE on 04/11/202050 Review of Systems Constitutional: see HPI Patient is unable to give review of systems secondary to her Alzheimer's dementia. Past Ewztgpp-Mxdfrp-Djrxtv Hx Immunizations Up To Date Tetanus Booster (TDap): Less than 5yrs Past Medical History Surgeries: Yes (SURG BOTH WRIST CARP TUNNEL - LUMP REMOVED R BREAST, HYST, SPLENECTOMY) Gallbladder, Hysterectomy, Orthopedic Respiratory: Yes Asthma Cardiac: Yes (frequent dizzy spells and near syncope) Atrial Fibrillation Neurological: Yes (ALZHEIMERS, LEFT LEG WEAKNESS) Dementia, Stroke Genitourinary: No Bladder Infection, UTI-Chronic Gastrointestinal: No Musculoskeletal: Yes Arthritis Endocrine: Yes Diabetes, Non-Insulin dep Cancer: No Psychosocial: Yes Anxiety, PTSD, Depression Integumentary: No Recent Skin Changes Blood Disorders: No Adverse Reaction/Blood Tranf: Yes (HAD "BLOTHCHES ALL OVER") Family Medical History No Pertinent Family Hx Physical Exam Vital Signs Vital Signs - First Documented 06/14/21 07:55 Temp 35.8 Pulse 74 Resp 20 B/P (MAP) 92/58 (69) Pulse Ox 97 O2 Delivery Room Air Capillary Refill : Height, Weight, BMI Height: 4'11.00" Weight: 170lbs. 0oz. 77.889616bw; 32.00 BMI Method:Stated General Appearance: WD/WN HEENT: PERRL/EOMI Neck: normal inspection Cardiovascular: regular rate, rhythm, systolic murmur, other (Distal pulses intact to the left upper) Respiratory: lungs clear, normal breath sounds, no respiratory distress, no accessory muscle use Gastrointestinal: normal bowel sounds, non tender, soft Shoulder: normal inspection, limited ROM, soft tissue tenderness Elbow/Forearm: Left, limited ROM, pain, soft tissue tenderness, swelling (Left upper arm) Wrist: Yes normal inspection, Yes non-tender, Yes no evidence of injury, Yes normal ROM Hand: normal inspection, non-tender, no evidence of injury, normal ROM Neurologic/Tendon: normal motor functions, normal tendon functions, responds to pain Neurologic/Psychiatric: alert, normal mood/affect Skin: normal color, warm/dry, other (No ecchymosis or erythema noted to the left shoulder/left upper arm) Procedures/Interventions Suture Size: 5-0 Progress/Results/Core Measures Results/Orders My Orders Orders - ALAN KUMARI MD Shoulder, Left, 3 Views (06/14/21 08:02) Humerus, Left, 2 Views (06/14/21 08:02) Vital Signs/I&O 06/14/21 07:55 Temp 35.8 Pulse 74 Resp 20 B/P (MAP) 92/58 (69) Pulse Ox 97 O2 Delivery Room Air Diagnostic Imaging Diagonstic Imaging: Xray Comments [facility] [place] [place] NAME: ENRIQUE LEWIS [facility] REC#: [id number] PT STATUS: REG ER : 1950 PHYSICIAN: ALAN KUMARI MD ADMIT DATE: 06/14/21/ER Signed Date of Exam:06/14/21 HUMERUS, LEFT, 2 VIEWS CLINICAL HISTORY: Fall. Left arm pain. Deformity. COMPARISON: None. TECHNIQUE: 2 views of the left humerus. FINDINGS: Acute displaced fracture is seen involving the distal diaphysis of the left humerus. There is approximately 3 cm of overriding. The left shoulder and left elbow demonstrate normal alignment. IMPRESSION: 1. Acute displaced fracture involving the distal diaphysis of the left humerus with approximately 3 cm of overriding. Dictated by: Dictated on workstation # [id number] Dict: 06/14/2132 Trans: 06/14/2135 [facility] [id number] Interpreted by: STACY DISLA DO Electronically signed by: STACY DISLA DO 06/14/2135 Departure Impression Primary Impression: Humerus distal fracture Qualified Codes: S42.492A - Other displaced fracture of lower end of left humerus, initial encounter for closed fracture Disposition: HOME, SELF-CARE Condition: Stable Departure-Patient Inst. Decision time for Depature: 08:40 Referrals: NILES HAQUE DO (PCP/Family) Primary Care Physician JAZMYNE CORMIER MD Patient Instructions: Upper Arm Fracture Add. Discharge Instructions: Ice packs to the left distal upper arm 20 minutes at a time 4 times a day. Keep the sling in place until follow-up with orthopedics. Hydrocodone 1 tablet every 6 hours as needed for pain. Monitor the left arm for worsening swelling, numbness or inability to move the left hand, discoloration of the left hand. Return to the emergency room for reevaluation if any of these things occur. Contact information for Dr. Cormier is provided on this paperwork. Please call for an appointment early next week. Scripts Hydrocodone/Acetaminophen (Hydrocodone-Acetamin 5-325 mg) 1 Each Tablet 1 TAB PO Q6H PRN for PAIN-MODERATE (5-7), #20 TAB Prov: ALAN KUMARI MD 06/14/21 Copy Copies To 1: JAZMYNE CORMIER MD Copies To 2: NILES HAQUE KATHRYN M MD Jun 14, 2021 08:15
--- NOTE | 2021-06-14 08:35 | Diagnostic Imaging Report ---
CLINICAL HISTORY: Fall. Left arm pain. Deformity. COMPARISON: None. TECHNIQUE: 2 views of the left humerus. FINDINGS: Acute displaced fracture is seen involving the distal diaphysis of the left humerus. There is approximately 3 cm of overriding. The left shoulder and left elbow demonstrate normal alignment. IMPRESSION: 1. Acute displaced fracture involving the distal diaphysis of the left humerus with approximately 3 cm of overriding. Dictated by: Dictated on workstation # [id number]
--- NOTE | 2021-06-14 08:38 | Diagnostic Imaging Report ---
Left shoulder at 8:23 AM INDICATION: Fell, arm pain 3 views were obtained. The previous left shoulder exam of 09/15/2020 noted a minimally displaced mildly comminuted fracture of the left humeral head and neck. That fracture has healed with mild residual deformity. There is no fracture or acute bony abnormality of the shoulder joint identified on this exam. However, there is a broad widely displaced oblique fracture of the distal 3rd of the humerus. A left humerus exam is pending for further study. The degenerative changes involving the shoulder joint noted on the prior exam have not progressed. The soft tissues are unremarkable. IMPRESSION: 1. The fracture of the surgical neck of the humerus seen previously has healed with mild residual deformity. There is no acute bony abnormality of the shoulder joint but there is a broad widely displaced fracture of the distal humerus. A left humerus exam is pending for further study. Dictated by: Dictated on workstation # [id number]
[2021-06-14] MEDS ORDERED: ACHD5005 PO (08:44)
[2021-06-14] MEDS ORDERED: HYDROcodone/APAP 5 MG/325 MG (LORTAB) TAB PO ONE (09:00)
[2021-06-14 09:24] VITALS: BP 108/66
== END 2021-06-14 09:25 | disposition home or self-care (01) ==
LOC: EDUNIT# 07:47 → ER 07:50
DX: S42.492A Other displaced fracture of lower end of left humerus, initial encounter for closed fracture (principal); G30.9 Alzheimer's disease, unspecified; F02.80 Dementia in other diseases classified elsewhere, unspecified severity, without behavioral disturbance, psychotic disturbance, mood disturbance, and anxiety; F41.9 Anxiety disorder, unspecified; F32.9 Major depressive disorder, single episode, unspecified; I48.91 Unspecified atrial fibrillation; J45.909 Unspecified asthma, uncomplicated; E11.9 Type 2 diabetes mellitus without complications; Z86.73 Personal history of transient ischemic attack (TIA), and cerebral infarction without residual deficits; Z79.899 Other long term (current) drug therapy; Z79.01 Long term (current) use of anticoagulants; X50.0XXA Overexertion from strenuous movement or load, initial encounter
CPT/HCPCS: 73030; 73060

== ENCOUNTER 2021-06-17 08:28 | Inpatient (IN) | payer MEDICARE ==
[~2021-06-17] VITALS: Ht 149.9 cm; Wt 70.5 kg
[2021-06-17] MEDS ORDERED: DEXTROSE 50% 50 ML (IMS) SYR ONE (08:35)
[2021-06-17] MEDS ORDERED: NS 100 ML (IVPB) BAG IV ONE (09:00)
[2021-06-17] MEDS ORDERED: HOLD METFORMIN - RECEIVED CONTRAST 20 ML VIAL IV SCH (09:00)
[2021-06-17] MEDS ORDERED: CATHETER FLUSH 10 ML SYR IV PRN (09:00)
[2021-06-17] MEDS ORDERED: IOHEXOL 350 MG/ML 100 ML (OMNIPAQUE 350) VIAL IV ONE (09:00)
[2021-06-17 09:26] LABS: BASOPHILS # (AUTO) 0.2 10^3/uL (0.0-0.1); BASOPHILS % (AUTO) 1 % (0-10); EOSINOPHILS # (AUTO) 0.2 10^3/uL (0.0-0.3); EOSINOPHILS % (AUTO) 1 % (0-10); HEMATOCRIT 41 % (35-52); HEMOGLOBIN 11.2 g/dL (11.5-16.0); LYMPHOCYTES # (AUTO) 6.1 10^3/uL (1.0-4.0); LYMPHOCYTES % (AUTO) 18 % (12-44); MEAN CORPUSCULAR HEMOGLOBIN 29 pg (25-34); MEAN CORPUSCULAR HGB CONC 28 g/dL (32-36); MEAN CORPUSCULAR VOLUME 104 fL (80-99); MEAN PLATELET VOLUME 10.9 fL (9.0-12.2); MONOCYTES # (AUTO) 2.5 10^3/uL (0.0-1.0); MONOCYTES % (AUTO) 7 % (0-12); NEUTROPHILS # (AUTO) 24.1 10^3/uL (1.8-7.8); NEUTROPHILS % (AUTO) 69 % (42-75); PLATELET COUNT 500 10^3/uL (130-400)
[2021-06-17 09:28] LABS: WHITE BLOOD COUNT 34.6 10^3/uL (4.3-11.0)
[2021-06-17 09:30] LABS: BILIRUBIN,URINE NEGATIVE (NEGATIVE); CLARITY,URINE CLOUDY; COLOR,URINE YELLOW; GLUCOSE, URINE (UA) NEGATIVE (NEGATIVE); KETONES,URINE TRACE (NEGATIVE); LEUKOCYTE ESTERASE ,URINE 3+ (NEGATIVE); NITRITE,URINE POSITIVE (NEGATIVE); PH,URINE 6.5 (5-9); PROTEIN,URINE 2+ (NEGATIVE)
[2021-06-17] MEDS ORDERED: NS IV 1000 ML 1,000 ML ONE (09:41)
[2021-06-17 09:51] LABS: BACTERIA,URINE LARGE /HPF; WBC,URINE TNTC /HPF
[2021-06-17] MEDS ORDERED: CEFEPIME INJECTION 2,000 MG in NS (IVPB) 50 ML IV ONE (10:00)
[2021-06-17 10:01] LABS: ABG BASE EXCESS -29.4 MMOL/L (-2.5-2.5); ABG OXYGEN SATURATION 96 % (94-100); ABG PO2 127 MMHG (79-93)
[2021-06-17 10:02] LABS: ABG PCO2 14 MMHG (35-45); ABG TCO2 2.6 MMOL/L (21.0-31.0)
[2021-06-17 10:04] LABS: INSPIRED O2 2 L; PATIENT TEMP 34.2; VENTILATOR NO
[2021-06-17 10:05] LABS: ALBUMIN 2.9 GM/DL (3.2-4.5); CHLORIDE 95 MMOL/L (98-107); SODIUM 133 MMOL/L (135-145)
[2021-06-17 10:06] LABS: CALCIUM 8.8 MG/DL (8.5-10.1)
[2021-06-17 10:07] LABS: GLUCOSE 186 MG/DL (70-105); TOTAL PROTEIN 6.3 GM/DL (6.4-8.2)
[2021-06-17 10:09] LABS: BILIRUBIN,TOTAL 0.6 MG/DL (0.1-1.0)
[2021-06-17 10:11] LABS: ALKALINE PHOSPHATASE 83 U/L (40-136); CREATININE SERUM 5.02 MG/DL (0.60-1.30); GFR ESTIMATED 8
[2021-06-17 10:12] LABS: BUN/CREATININE RATIO 11
[2021-06-17 10:14] LABS: ALANINE AMINOTRANSFERASE 29 U/L (0-55)
[2021-06-17 10:15] LABS: ABG PH 6.77 (7.37-7.43)
[2021-06-17 10:16] LABS: INR 3.9 (0.8-1.4); PROTHROMBIN TIME PATIENT 38.9 SEC (12.2-14.7)
[2021-06-17 10:17] LABS: FIBRIN DEGRADATION PRODUCTS 2.4 UG/ML (0.00-0.49)
[2021-06-17 10:18] LABS: BAND NEUTROPHILS 3 %; BASOPHILS % (MANUAL) 0 %; EOSINOPHILS % (MANUAL) 0 %; LYMPHOCYTES % (MANUAL) 13 %; METAMYELOCYTES % 1 %; MONOCYTES % (MANUAL) 5 %; MYELOCYTES % 3 %; NEUTROPHILS % (MANUAL) 73 %
[2021-06-17 10:19] LABS: RBC MORPH NORMAL; REACTIVE LYMPHOCYTES 2 %
[2021-06-17 10:22] LABS: CARBON DIOXIDE < 5 MMOL/L (21-32)
[2021-06-17] MEDS ORDERED: NS IV 1000 ML 3,000 ML ONE (10:30)
[2021-06-17] MEDS ORDERED: NS IV 1000 ML 1,000 ML IV SCH ×3 (10:30→15:30)
--- NOTE | 2021-06-17 10:32 | Diagnostic Imaging Report ---
PROCEDURE: CT head wo r/o stroke. TECHNIQUE: Multiple contiguous axial images were obtained through the brain without the use of intravenous contrast. Auto Exposure Controls were utilized during the CT exam to meet ALARA standards for radiation dose reduction. INDICATION: Unresponsive CVA. FINDINGS: There is no mass, shift of the midline or hemorrhage to suggest an acute intracranial abnormality. The ventricles are not abnormally dilated and stable in size when compared to the prior exam of 09/15/2020. The suspected areas of encephalomalacia involving the right frontal parietal and occipital lobes seen previously are again evident and no different. There is no hyperdense vessel to suggest an acute infarct. The bone windows are unremarkable for fracture or for destructive lesion. The orbits are symmetrical and within normal limits. The sinuses are generally clear. IMPRESSION: 1. There is no evidence for an acute intracranial abnormality. When compared to the previous study, there has been no significant change. 2. These results were discussed with Dr. Arboleda at the time of this dictation. Dictated by: Dictated on workstation # [id number]
--- NOTE | 2021-06-17 10:33 | Diagnostic Imaging Report ---
EXAMINATION: Portable supine chest at 10:18 AM. INDICATION: Unresponsive. FINDINGS: Both the heart and the central pulmonary vascularity do seem more prominent than noted on the erect PA chest exam of 09/15/2020. These findings may in part be due to the patient's supine position. The possibility that there is early/mild pulmonary congestion evolving should still be considered. The lungs are otherwise generally clear. The mediastinum is not widened. The osseous structures are intact. IMPRESSION: 1. Both the heart and the central pulmonary vascularity do seem more prominent than on the prior exam. While this may be secondary to the patient's supine position, the possibility that there is an element of early/mild pulmonary congestion should be considered. 2. There is no acute cardiopulmonary abnormality noted otherwise. Dictated by: Dictated on workstation # [id number]
[2021-06-17] MEDS ORDERED: SODIUM BICARB 8.4% 50 MEQ/50 ML (ABBOTT) SYR IV ONE (10:45)
[2021-06-17] MEDS ORDERED: NOREPINEPHRINE 8 MG/250 ML 250 ML IV SCH (10:45)
[2021-06-17] MEDS ORDERED: morphine INJ 10 MG/ML 1ML (SYR OR VIAL) IVP STA (10:52)
--- NOTE | 2021-06-17 10:52 | Consultation - Surgery ---
History of Present Illness History of Present Illness Patient Consulted On(linda/time) 06/17/21 10:47 Date Seen by Provider: Jun 17, 2021 Time Seen by Provider: 10:23 History of Present Illness Consult requested by Dr. Arboleda for central line and arterial line placment in ED. Patient is a 71 year old unresponsive female ada to ED. She has been hypotensive. Unable to get venous access. Allergies and Home Medications Allergies Coded Allergies: aspirin (Verified Allergy, Mild, 06/17/21) Sulfa (Sulfonamide Antibiotics) (Unverified Allergy, Unknown, 06/17/21) Patient Home Medication List Home Medication List Reviewed: Yes ALPRAZolam (Xanax Tablet) 0.25 Mg Tab, 0.25 MG PO Q8H PRN for ANXIETY Prescribed by: KULDEEP PAYNE on 04/11/202051 Apixaban (Eliquis) 5 Mg Tablet, 5 MG PO BID Prescribed by: KULDEEP PAYNE on 04/11/202050 Atorvastatin Calcium (Lipitor) 40 Mg Tablet, 40 MG PO DAILY Prescribed by: KULDEEP PAYNE on 04/11/202050 Cefdinir (Cefdinir) 300 Mg Capsule, 300 MG PO BID Prescribed by: KULDEEP PAYNE on 04/11/202050 Cephalexin (Cephalexin) 500 Mg Tablet, 500 MG PO BID Prescribed by: ZAHIRA HENSON on 09/15/201810 Cyanocobalamin (Vitamin B-12) (Vitamin B-12) 1,000 Mcg Tablet, 1,000 MCG PO DAILY@0700 Prescribed by: KULDEEP PAYNE on 04/11/202050 Glyburide (Glyburide) 1.25 Mg Tablet, 1.25 MG PO DAILY Prescribed by: KULDEEP PAYNE on 04/11/202050 Hydrocodone/Acetaminophen (Hydrocodone-Acetamin 5-325 mg) 1 Each Tablet, 0.5-1 TAB PO Q6H PRN for PAIN-MODERATE (5-7) Prescribed by: ZAHIRA HENSON on 09/15/201811 Hydrocodone/Acetaminophen (Hydrocodone-Acetamin 5-325 mg) 1 Each Tablet, 1 TAB PO Q6H PRN for PAIN-MODERATE (5-7) Prescribed by: ALAN KUMARI on 06/14/21 0844 Melatonin (Melatonin) 3 Mg Tablet, 3 MG PO HS PRN for INSOMNIA Prescribed by: KULDEEP PAYNE on 04/11/202050 Multivits,Ca,Minerals/Iron/FA (Thera-M Tablet) 1 Each Tablet, 1 EA PO DAILY@0700 Prescribed by: UKLDEEP PAYNE on 04/11/202050 Past Cgsntdq-Niigbe-Rzjvbg Hx Patient Social History Drug of Choice: Denies 2nd Hand Smoke Exposure: No Recent Hopitalizations: No Immunizations Up To Date Tetanus Booster (TDap): Less than 5yrs Date of Pneumonia Vaccine: Mar 17, 2010 Surgeries History of Surgeries: Yes (SURG BOTH WRIST CARP TUNNEL - LUMP REMOVED R BREAST, HYST, SPLENECTOMY) Surgeries: Gallbladder, Hysterectomy, Orthopedic Respiratory History of Respiratory Disorde: Yes Respiratory Disorders: Asthma Cardiovascular History of Cardiac Disorders: Yes (frequent dizzy spells and near syncope) Cardiac Disorders: Atrial Fibrillation Neurological History of Neurological Disord: Yes (ALZHEIMERS, LEFT LEG WEAKNESS) Neurological Disorders: Dementia, Stroke Genitourinary History of Genitourinary Disor: No Genitourinary Disorders: Bladder Infection, UTI-Chronic Gastrointestinal History of Gastrointestinal Di: No Musculoskeletal History of Musculoskeletal Dis: Yes Musculoskeletal Disorders: Arthritis Endocrine History of Endocrine Disorders: Yes Endocrine Disorders: Diabetes, Non-Insulin dep Cancer History of Cancer: No Psychosocial History of Psychiatric Problem: Yes Behavioral Health Disorders: Anxiety, PTSD, Depression Integumentary History of Skin or Integumenta: No Skin/Integumentary Disorders: Recent Skin Changes Blood Transfusions History of Blood Disorders: No Adverse Reaction to a Blood Tr: Yes (HAD "BLOTHCHES ALL OVER") Reviewed Nursing Assessment Reviewed/Agree w Nursing PMH: Yes Family Medical History Significant Family History: No Pertinent Family Hx Review of Systems-General ROS-Unable to Obtain: unable to provide due to condition. Physical Exam-General Problems Physical Exam Vital Signs Capillary Refill : General Appearance: other (moans, unable to communicate words to me.) HEENT: PERRL/EOMI, normal ENT inspection Neck: non-tender, supple Respiratory: chest non-tender, no respiratory distress, no accessory muscle use Cardiovascular: regular rate, rhythm, no JVD Gastrointestinal: non tender, soft Rectal: deferred Back: no CVA tenderness, no vertebral tenderness Extremities: other (left arm bruising/ slight deformity) Neurologic/Psychiatric: No normal mood/affect, No oriented x 3 Skin: ecchymosis (left arm), pallor Lymphatic: no adenopathy Data Review Labs Laboratory Tests 06/17/21 08:34: Glucometer 18*L, Influenza Type A Antigen NEGATIVE, Influenza Type B Antigen NEGATIVE, SARS-CoV-2 RNA (RT-PCR) Negative 06/17/21 08:47: Urine Color YELLOW, Urine Clarity CLOUDY, Urine pH 6.5, Urine Specific [place] 1.020, Urine Protein 2+H, Urine Glucose (UA) NEGATIVE, Urine Ketones TRACEH, Urine Nitrite POSITIVEH, Urine Bilirubin NEGATIVE, Urine Urobilinogen 0.2, Urine Leukocyte Esterase 3+H, Urine RBC (Auto) 2+H, Urine RBC 2-5H, Urine WBC TNTCH, Urine Squamous Epithelial Cells 2-5, Urine Crystals NONE, Urine Bacteria LARGEH, Urine Casts NONE, Urine Mucus NEGATIVE, Urine Culture Indicated YES 06/17/21 08:50: Glucometer 160H 06/17/21 09:19: White Blood Count 34.6*H, Red Blood Count 3.91, Hemoglobin 11.2L, Hematocrit 41, Mean Corpuscular Volume 104H, Mean Corpuscular Hemoglobin 29, Mean Corpuscular Hemoglobin Concent 28L, Red Cell Distribution Width 14.7H, Platelet Count 500H, Mean Platelet Volume 10.9, Immature Granulocyte % (Auto) 5, Neutrophils (%) (Auto) 69, Lymphocytes (%) (Auto) 18, Monocytes (%) (Auto) 7, Eosinophils (%) (Auto) 1, Basophils (%) (Auto) 1, Neutrophils # (Auto) 24.1H, Lymphocytes # (Auto) 6.1H, Monocytes # (Auto) 2.5H, Eosinophils # (Auto) 0.2, Basophils # (Auto) 0.2H, Immature Granulocyte # (Auto) 1.7H, Neutrophils % (Manual) 73, Lymphocytes % (Manual) 13, Monocytes % (Manual) 5, Eosinophils % (Manual) 0, Basophils % (Manual) 0, Metamyelocytes % 1, Myelocytes % 3, Band Neutrophils 3, Reactive Lymphocytes 2, Blood Morphology Comment NORMAL 06/17/21 09:39: 06/17/21 09:44: Prothrombin Time 38.9H, INR Comment 3.9H, Activated Partial Thromboplast Time 58H, D-Dimer 2.40H, Sodium Level 133L, Potassium Level 7.0*H, Chloride Level 95L , Carbon Dioxide Level < 5*L, Anion Gap 33H, Blood Urea Nitrogen 53H, Creatinine 5.02H, Estimat Glomerular Filtration Rate 8, BUN/Creatinine Ratio 11, Glucose Level 186H, Lactic Acid Level 18.70*H, Calcium Level 8.8, Corrected Calcium 9.7, Total Bilirubin 0.6, Aspartate Amino Transf (AST/SGOT) 65H, Alanine Aminotransferase (ALT/SGPT) 29, Alkaline Phosphatase 83, Troponin I 0.071H, Total Protein 6.3L, Albumin 2.9L 06/17/21 09:55: Blood Gas Puncture Site ARTLINE, Blood Gas Patient Temperature 34.2, Arterial Blood pH 6.77*L, Arterial Blood Partial Pressure CO2 14*L, Arterial Blood Partial Pressure O2 127H, Arterial Blood HCO3 2*L, Arterial Blood Total CO2 2.6*L, Arterial Blood Oxygen Saturation 96, Arterial Blood Base Excess -29.4L, Moshe Test N/A, Blood Gas Ventilator Setting NO, Blood Gas Inspired Oxygen 2 L Assessment/Plan Assessment/Plan Assessment/Plan 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 continue medical management/workup in ed Procedures u/s guided left femoral vein central line placement and right radial u/s guided arterial line placement. Left groin was prepped and draped in sterile fashion. U/s was used to identify anatomy. The left femoral vein was accessed and dark nonpulsatile blood drawn back. Wire was inserted and needle was removed. 11 blade was used to make skin incision at insertion point. Dilator was advance and removed. Triple lumen catheter was inserted and wire was removed. The catheter was secured and all ports accessed and flushed. Sterile bandage applied. The right radial artery was visualized under u/s after area was prepped and draped. 20 ga artline was used to access artery and wire was advanced and catheter advanced without difficulty. Needle/wire removed. Catheter was secured. . ABIODUN CARNEY DO Jun 17, 2021 10:52
--- NOTE | 2021-06-17 11:25 | ED General ---
General Chief Complaint: Unresponsive Stated Complaint: UNRESPONSIVE Source of Information: Caregiver, EMS, Family, Group Home Records History of Present Illness Date Seen by Provider: Jun 17, 2021 Time Seen by Provider: 08:29 Initial Comments This is 71-year-old woman presents to the emergency room via EMS from the retirement where she is found to have significant altered mental status. She is responding only with moans and groans but no purposeful interaction or movement. She has gaze deviation fixed upward into the left. She has history of prior right-sided stroke with left-sided deficits. She is noted to be hypotensive. [facility] staff reported that she had "word salad" around 0230 this morning. Last known well time was sometime last night. reports she had not been feeling well over the past couple of days and was experiencing nausea. He reports she was relatively normal when he left her last night. She has a full CODE STATUS. She was hypothermic with a temperature near 34 degrees during initial assessment. She also had blood sugar of 18 which was treated with an amp of D50 she was hypotensive on arrival with difficult to register oxygen saturation. She is anticoagulated on Eliquis. Allergies and Home Medications Allergies Coded Allergies: aspirin (Verified Allergy, Mild, 06/17/21) Sulfa (Sulfonamide Antibiotics) (Unverified Allergy, Unknown, 06/17/21) Patient Home Medication List Home Medication List Reviewed: Yes ALPRAZolam (Xanax Tablet) 0.25 Mg Tab, 0.25 MG PO Q8H PRN for ANXIETY Prescribed by: KLUDEEP PAYNE on 04/11/202051 Apixaban (Eliquis) 5 Mg Tablet, 5 MG PO BID Prescribed by: KULDEEP PAYNE on 04/11/202050 Atorvastatin Calcium (Lipitor) 40 Mg Tablet, 40 MG PO DAILY Prescribed by: KULDEEP PAYNE on 04/11/202050 Cefdinir (Cefdinir) 300 Mg Capsule, 300 MG PO BID Prescribed by: KULDEEP PAYNE on 04/11/202050 Cephalexin (Cephalexin) 500 Mg Tablet, 500 MG PO BID Prescribed by: ZAHIRA HENSON on 09/15/201810 Cyanocobalamin (Vitamin B-12) (Vitamin B-12) 1,000 Mcg Tablet, 1,000 MCG PO DAILY@0700 Prescribed by: KULDEEP PAYNE on 04/11/202050 Glyburide (Glyburide) 1.25 Mg Tablet, 1.25 MG PO DAILY Prescribed by: KULDEEP PAYNE on 04/11/202050 Hydrocodone/Acetaminophen (Hydrocodone-Acetamin 5-325 mg) 1 Each Tablet, 0.5-1 TAB PO Q6H PRN for PAIN-MODERATE (5-7) Prescribed by: ZAHIRA HENSON on 09/15/201811 Hydrocodone/Acetaminophen (Hydrocodone-Acetamin 5-325 mg) 1 Each Tablet, 1 TAB PO Q6H PRN for PAIN-MODERATE (5-7) Prescribed by: ALAN KUMARI on 06/14/21 0844 Melatonin (Melatonin) 3 Mg Tablet, 3 MG PO HS PRN for INSOMNIA Prescribed by: KULDEEP PAYNE on 04/11/202050 Multivits,Ca,Minerals/Iron/FA (Thera-M Tablet) 1 Each Tablet, 1 EA PO DAILY@0700 Prescribed by: KULDEEP PAYNE on 04/11/202050 Review of Systems Review of Systems Constitutional: see HPI EENTM: see HPI Respiratory: see HPI Cardiovascular: see HPI Gastrointestinal: see HPI Genitourinary: no symptoms reported : No Musculoskeletal: no symptoms reported Skin: change in color (Pale) Psychiatric/Neurological: See HPI Hematologic/Lymphatic: No Symptoms Reported Immunological/Allergic: no symptoms reported Past Ruvjjjm-Tsjppp-Khylmi Hx Patient Social History Tobacco Use?: No Substance use?: No Alcohol Use?: No Immunizations Up To Date Tetanus Booster (TDap): Less than 5yrs First/Initial COVID19 Vaccinat: 05/22/21 Past Medical History Surgeries: Yes (SURG BOTH WRIST CARP TUNNEL - LUMP REMOVED R BREAST, HYST, SPLENECTOMY) Gallbladder, Hysterectomy, Orthopedic Respiratory: Yes Asthma Cardiac: Yes (frequent dizzy spells and near syncope) Atrial Fibrillation Neurological: Yes (ALZHEIMERS, LEFT LEG WEAKNESS) Dementia, Stroke Genitourinary: Yes Bladder Infection, UTI-Chronic Gastrointestinal: No Musculoskeletal: Yes Arthritis Endocrine: Yes Diabetes, Non-Insulin dep Cancer: No Psychosocial: Yes Anxiety, PTSD, Depression Integumentary: No Recent Skin Changes Blood Disorders: No Adverse Reaction/Blood Tranf: Yes (HAD "BLOTHCHES ALL OVER") Family Medical History No Pertinent Family Hx Physical Exam-Suspected Sepsis Physical Exam Vital Signs Vital Signs - First Documented 06/17/21 08:30 Temp 34.7 Pulse 63 Resp 27 B/P (MAP) 74/60 (65) Pulse Ox 99 O2 Delivery Non Rebreather O2 Flow Rate 10.00 Capillary Refill : Height, Weight, BMI Height: 4'11.00" Weight: 170lbs. 0oz. 77.154329yn; 37.00 BMI Method:Stated General Appearance: WD/WN, Mild Distress, Other (Decreased responsiveness, moaning and groaning) HEENT: PERRL/EOMI, Other (Oropharynx dry, and gaze with fixed deviation upward and leftward) Neck: Normal Inspection; No JVD Respiratory: Lungs Clear, Normal Breath Sounds, No Accessory Muscle Use Cardiovascular: Regular Rate, Rhythm, No Edema, No Murmur Gastrointestinal: Normal Bowel Sounds, Non Tender, Soft Extremity: Normal Inspection, No Pedal Edema Neurologic/Psychiatric: Other (Has some movement of the right extremities. No purposeful interactions. Vocalizes moans and groans. Responds spoke to pressure such as placement of Vasquez catheter.) Skin: cool, pallor Focused Exam Lactate Level 06/17/21 09:44: Lactic Acid Level 18.70*H Lactic Acid Level Procedures/Interventions Suture Size: 5-0 Progress/Results/Core Measures Suspected Sepsis SIRS Temperature: Pulse: Respiratory Rate: Laboratory Tests 06/17/21 09:19: White Blood Count 34.6*H Blood Pressure / Mean: 06/17/21 09:44: Lactic Acid Level 18.70*H Laboratory Tests 06/17/21 09:19: Platelet Count 500H 06/17/21 09:44: Creatinine 5.02H, INR Comment 3.9H, Total Bilirubin 0.6 Results/Orders Lab Results Laboratory Tests Test 06/17/21 08:34 06/17/21 08:47 06/17/21 08:50 06/17/21 09:19 Range/Units Glucometer 18 *L 160 H 70-110 MG/DL Influenza Type A Antigen NEGATIVE NEGATIVE Influenza Type B Antigen NEGATIVE NEGATIVE SARS-CoV-2 RNA (RT-PCR) Negative Negative Urine Color YELLOW Urine Clarity CLOUDY Urine pH 6.5 5-9 Urine Specific [place] 1.020 1.016-1.022 Urine Protein 2+ H NEGATIVE Urine Glucose (UA) NEGATIVE NEGATIVE Urine Ketones TRACE H NEGATIVE Urine Nitrite POSITIVE H NEGATIVE Urine Bilirubin NEGATIVE NEGATIVE Urine Urobilinogen 0.2 < = 1.0 MG/DL Urine Leukocyte Esterase 3+ H NEGATIVE Urine RBC (Auto) 2+ H NEGATIVE Urine RBC 2-5 H /HPF Urine WBC TNTC H /HPF Urine Squamous Epithelial Cells 2-5 /HPF Urine Crystals NONE /LPF Urine Bacteria LARGE H /HPF Urine Casts NONE /LPF Urine Mucus NEGATIVE /LPF Urine Culture Indicated YES White Blood Count 34.6 *H 4.3-11.0 10^3/uL Red Blood Count 3.91 3.80-5.11 10^6/uL Hemoglobin 11.2 L 11.5-16.0 g/dL Hematocrit 41 35-52 % Mean Corpuscular Volume 104 H 80-99 fL Mean Corpuscular Hemoglobin 29 25-34 pg Mean Corpuscular Hemoglobin Concent 28 L 32-36 g/dL Red Cell Distribution Width 14.7 H 10.0-14.5 % Platelet Count 500 H 130-400 10^3/uL Mean Platelet Volume 10.9 9.0-12.2 fL Immature Granulocyte % (Auto) 5 % Neutrophils (%) (Auto) 69 42-75 % Lymphocytes (%) (Auto) 18 12-44 % Monocytes (%) (Auto) 7 0-12 % Eosinophils (%) (Auto) 1 0-10 % Basophils (%) (Auto) 1 0-10 % Neutrophils # (Auto) 24.1 H 1.8-7.8 10^3/uL Lymphocytes # (Auto) 6.1 H 1.0-4.0 10^3/uL Monocytes # (Auto) 2.5 H 0.0-1.0 10^3/uL Eosinophils # (Auto) 0.2 0.0-0.3 10^3/uL Basophils # (Auto) 0.2 H 0.0-0.1 10^3/uL Immature Granulocyte # (Auto) 1.7 H 0.0-0.1 10^3/uL Neutrophils % (Manual) 73 % Lymphocytes % (Manual) 13 % Monocytes % (Manual) 5 % Eosinophils % (Manual) 0 % Basophils % (Manual) 0 % Metamyelocytes % 1 % Myelocytes % 3 % Band Neutrophils 3 % Reactive Lymphocytes 2 % Blood Morphology Comment NORMAL Test 06/17/21 09:39 06/17/21 09:44 06/17/21 09:55 06/17/21 10:03 Range/Units Prothrombin Time 38.9 H 12.2-14.7 SEC INR Comment 3.9 H 0.8-1.4 Activated Partial Thromboplast Time 58 H 24-35 SEC D-Dimer 2.40 H 0.00-0.49 UG/ML Sodium Level 133 L 135-145 MMOL/L Potassium Level 7.0 *H 3.6-5.0 MMOL/L Chloride Level 95 L 98-107 MMOL/L Carbon Dioxide Level < 5 *L 21-32 MMOL/L Anion Gap 33 H 5-14 MMOL/L Blood Urea Nitrogen 53 H 7-18 MG/DL Creatinine 5.02 H 0.60-1.30 MG/DL Estimat Glomerular Filtration Rate 8 BUN/Creatinine Ratio 11 Glucose Level 186 H 70-105 MG/DL Lactic Acid Level 18.70 *H 0.50-2.00 MMOL/L Calcium Level 8.8 8.5-10.1 MG/DL Corrected Calcium 9.7 8.5-10.1 MG/DL Total Bilirubin 0.6 0.1-1.0 MG/DL Aspartate Amino Transf (AST/SGOT) 65 H 5-34 U/L Alanine Aminotransferase (ALT/SGPT) 29 0-55 U/L Alkaline Phosphatase 83 40-136 U/L Troponin I 0.071 H <0.028 NG/ML Total Protein 6.3 L 6.4-8.2 GM/DL Albumin 2.9 L 3.2-4.5 GM/DL Blood Gas Puncture Site ARTLINE Blood Gas Patient Temperature 34.2 Arterial Blood pH 6.77 *L 7.37-7.43 Arterial Blood Partial Pressure CO2 14 *L 35-45 MMHG Arterial Blood Partial Pressure O2 127 H 79-93 MMHG Arterial Blood HCO3 2 *L 23-27 MMOL/L Arterial Blood Total CO2 2.6 *L 21.0-31.0 MMOL/L Arterial Blood Oxygen Saturation 96 94-100 % Arterial Blood Base Excess -29.4 L -2.5-2.5 MMOL/L Moshe Test N/A Blood Gas Ventilator Setting NO Blood Gas Inspired Oxygen 2 L Glucometer 137 H 70-110 MG/DL My Orders Orders - KELSEY ARBOLEDA MD D50w (Emergency) Syringe (Dextrose 50% 5 (1/4/22 08:35) Cbc With Automated Diff (06/17/21 08:50) Protime With Inr (06/17/21 08:50) Partial Thromboplastin Time (06/17/21 08:50) Comprehensive Metabolic Panel (06/17/21 08:50) Fibrin Degradation Products (06/17/21 08:50) Troponin I [place] (06/17/21 08:50) Ua Culture If Indicated (06/17/21 08:50) Chest 1 View, Ap/Pa Only (06/17/21 08:50) Catheter(Urinary) Insert & Ass 03,15 (06/17/21 08:50) Ekg Tracing (06/17/21 08:50) Nothing By Mouth (06/17/21 Breakfast) Accucheck Stat ONCE (06/17/21 08:50) Ed Iv/Invasive Line Start (06/17/21 08:50) Ed Iv/Invasive Line Start (06/17/21 08:50) Vital Signs Stroke Patient Q15M (06/17/21 08:50) Ct Head Wo-R/O Stroke (06/17/21 08:50) O2 (06/17/21 08:50) Intake & Output 06,14,22 (06/17/21 08:50) Monitor-Rhythm Ecg Trace Only (06/17/21 08:50) Dysphagia Screening Tool (06/17/21 08:50) Lipid Panel (06/18/21 06:00) Blood Culture (06/17/21 08:53) Sputum Culture (06/17/21 08:53) Vital Signs Adult Sepsis Patie Q15M (06/17/21 08:53) Remove Rings In Anticipation O (06/17/21 08:53) Lactic Acid Analyzer (06/17/21 08:53) Accucheck Stat ONCE (06/17/21 08:54) Accucheck Stat ONCE (06/17/21 08:54) Iohexol Injection (Omnipaque 350 Mg/Ml 1 (06/17/21 09:00) Received Contrast (Hold Metformin- Contr (06/17/21 09:00) Sodium Chloride Flush (Catheter Flush Sy (06/17/21 09:00) Ns (Ivpb) (Sodium Chloride 0.9% Ivpb Bag (06/17/21 09:00) Covid 19 Inhouse Test (06/17/21 09:00) Influenza A & B Antigens (06/17/21 09:00) Coronavirus Sars-Cov-2 So 2019 (06/17/21 09:39) Ns Iv 1000 Ml (Sodium Chloride 0.9%) (06/17/21 09:41) Urine Culture (06/17/21 08:47) Arterial Blood Gas (06/17/21 09:56) Manual Differential (06/17/21 09:19) Ns Iv 1000 Ml (Sodium Chloride 0.9%) (06/17/21 10:30) Ns Iv 1000 Ml (Sodium Chloride 0.9%) (06/17/21 10:30) Norepinephrine 8 Mg/250 Ml (Norepinephri (06/17/21 10:45) Sodium Bicarbonate 8.4% Syr (Sodium Bica (06/17/21 10:45) Morphine Injection (Morphine Injection (06/17/21 10:52) Ed Admission (Communication) (06/17/21 10:55) Ns Iv 1000 Ml (Sodium Chloride 0.9%) (06/17/21 15:30) Ns Iv 1000 Ml (Sodium Chloride 0.9%) (06/17/21 15:30) Medications Given in ED Current Medications Medications Dose Ordered Sig/Jose Route Start Time Stop Time Status Last Admin Dose Admin Dextrose 50 ml STK-MED ONCE .ROUTE 06/17/21 08:35 06/17/21 08:39 DC 06/17/21 08:37 50 ML Vital Signs/I&O 06/17/21 06/17/21 06/17/21 06/17/21 08:30 11:32 13:52 14:30 Temp 34.7 34.7 Pulse 63 72 Resp 27 25 B/P (MAP) 74/60 (65) 55/24 Pulse Ox 99 85 98 O2 Delivery Non Rebreather Nasal Cannula Nasal Cannula Nasal Cannula O2 Flow Rate 10.00 6.00 2.00 4.00 06/17/21 15:30 B/P (MAP) O2 Delivery Nasal Cannula Capillary Refill : Point of Care Testing Finger Stick Blood Glucose: 18 Blood Glucose Action Taken: notified ECG Initial ECG Impression Date: Jun 17, 2021 Initial ECG Impression Time: 08:43 Initial ECG Rate: 60 Comment Junctional rhythm with no ST elevation or depression. Borderline prolonged QT i nterval. No axis deviation. Diagnostic Imaging Diagonstic Imaging: Xray Plain Films/CT/US/NM/MRI: chest Comments NAME: [facility] REC#: [id number] PT STATUS: ADM IN : 1950 PHYSICIAN: KELSEY ARBOLEDA MD ADMIT DATE: 06/17/21 Signed Date of Exam:06/17/21 CHEST 1 VIEW, AP/PA ONLY EXAMINATION: Portable supine chest at 10:18 AM. INDICATION: Unresponsive. FINDINGS: Both the heart and the central pulmonary vascularity do seem more prominent than noted on the erect PA chest exam of 09/15/2020. These findings may in part be due to the patient's supine position. The possibility that there is early/mild pulmonary congestion evolving should still be considered. The lungs are otherwise generally clear. The mediastinum is not widened. The osseous structures are intact. IMPRESSION: 1. Both the heart and the central pulmonary vascularity do seem more prominent than on the prior exam. While this may be secondary to the patient's supine position, the possibility that there is an element of early/mild pulmonary congestion should be considered. 2. There is no acute cardiopulmonary abnormality noted otherwise. Dictated by: Dictated on workstation # [id number] Dict: 06/17/21 1029 Trans: 06/17/21 1720 [id number] Interpreted by: DEBI RAMIRES MD Electronically signed by: DEBI RAMIRES MD 06/17/21 172 Diagonstic Imaging: CT Plain Films/CT/US/NM/MRI: head Comments CT head viewed by me and report reviewed. See report below: NAME: ENRIQUE LEWIS [facility] REC#: [id number] PT STATUS: ADM IN : 1950 PHYSICIAN: KELSEY ARBOLEDA MD ADMIT DATE: 06/17/21 Signed Date of Exam:06/17/21 CT HEAD WO-R/O STROKE PROCEDURE: CT head wo r/o stroke. TECHNIQUE: Multiple contiguous axial images were obtained through the brain without the use of intravenous contrast. Auto Exposure Controls were utilized during the CT exam to meet ALARA standards for radiation dose reduction. INDICATION: Unresponsive CVA. FINDINGS: There is no mass, shift of the midline or hemorrhage to suggest an acute intracranial abnormality. The ventricles are not abnormally dilated and stable in size when compared to the prior exam of 09/15/2020. The suspected areas of encephalomalacia involving the right frontal parietal and occipital lobes seen previously are again evident and no different. There is no hyperdense vessel to suggest an acute infarct. The bone windows are unremarkable for fracture or for destructive lesion. The orbits are symmetrical and within normal limits. The sinuses are generally clear. IMPRESSION: 1. There is no evidence for an acute intracranial abnormality. When compared to the previous study, there has been no significant change. 2. These results were discussed with Dr. Arboleda at the time of this dictation. Dictated by: Dictated on workstation # [id number] Dict: 06/17/21 1024 Trans: 06/17/21 1722 [id number] Interpreted by: DEBI RAMIRES MD Electronically signed by: DEBI RAMIRES MD 06/17/21 1722 Critical Care Note Critical Care Start Time: 08:29 Stop Time: 10:50 Total Time (minutes) 141 Progress Patient was found to be severely hypoglycemic and this was corrected with an amp of D50. Peripheral IV lines and IO were placed. Patient was hydrated with 2 L of normal saline. This did not satisfactorily resuscitate her blood pressure. A norepinephrine drip was initiated. Patient maintained protection of her airway and appropriate oxygen saturation with nasal cannula alone. ABG showed acidosis with no elevation of PCO2. Dr. Walker was consulted for line placement. He placed a femoral central line as well as an arterial line. The neck vessels were avoided due to anticoagulant use. Work-up revealed severe renal failure, severe acidosis, and significant electrolyte disturbances. Stroke activation was paged and CT of the head was obtained once patient was stable enough to transfer for CT imaging. No acute abnormalities were identified on the CT. 11:05 - Patient appears to be in septic shock with very poor prognosis. I discussed the situation with Dr. Ramirez, stroke neurologist at [facility]. Although there are neurologic deficits, it is unclear what the etiology of these deficits are. Because of the eye deviation, there may be seizure-like activity. Dr. Ramirez recommended treating for possible seizures, but more importantly, treating the underlying metabolic issues that are probably causing her symptoms. Dr. Ramirez did not feel there was any necessity for transferring to a neurology capable facility until the metabolic issues are corrected. I have also discussed the situation with the patient's . I explained to the severe metabolic abnor malities and the septic shock. Recovery to a meaningful positive quality of life is not expected. In the context of her prior deficits and being retirement dependent, prognosis is very poor. He expresses understanding and elects to proceed with comfort care only. Case was discussed with Dr. Fagan who accepts the admission and will place admission orders. Departure Communication (Admissions) Time/Spoke to Admitting Phy: 11:00 Dr. Fagan Impression Primary Impression: Septic shock Additional Impressions: Altered mental status Qualified Codes: R41.82 - Altered mental status, unspecified Urinary tract infection Qualified Codes: N39.0 - Urinary tract infection, site not specified Acute kidney injury Hyperkalemia Metabolic acidosis Need for comfort care Disposition: ADMITTED INPATIENT Condition: Unchanged Admissions Decision to Admit Reason: Admit from ER (General) Decision to Admit/Date: Jun 17, 2021 Time/Decision to Admit Time: 08:30 Departure-Patient Inst. Referrals: NILES HAQUE DO (PCP/Family) Primary Care Physician KELSEY ARBOLEDA MD Jun 17, 2021 11:25
[2021-06-17 11:32] VITALS: BP 55/24
[2021-06-17] MEDS ORDERED: ACETAMINOPHEN 650 MG SUPP (TYLENOL) PR PRN ×2 (13:00)
[2021-06-17] MEDS ORDERED: ARTIFICAL TEARS 0.4 ML UNIT DOSE (REFRESH PLUS) OU PRN ×2 (13:00)
[2021-06-17] MEDS ORDERED: BISACODYL 10 MG SUPP (DULCOLAX) PR PRN ×2 (13:00)
[2021-06-17] MEDS ORDERED: ONDANSETRON 4 MG/2 ML (SDV) Z0FRAN IVP PRN ×2 (13:00)
[2021-06-17] MEDS ORDERED: SALIVA STIMULANT MOUTH SPRAY (BIOTENE) 1.5 OZ MM PRN ×2 (13:00)
[2021-06-17] MEDS ORDERED: PROMETHAZINE INJ 25 MG/ML (PHENERGAN) AMP IVP PRN ×2 (13:00)
[2021-06-17] MEDS ORDERED: GLYCOPYRROLATE 0.2 MG/ML (ROBINUL) 2 ML VIAL IV PRN ×2 (13:00)
[2021-06-17] MEDS ORDERED: RT-ALBUTEROL/IPRATROPIUM 3 ML (DUONEB) VIAL INH PRN ×2 (13:00)
[2021-06-17] MEDS ORDERED: LORazepam INJ 2 MG/ML (ATIVAN) VIAL IVP PRN ×2 (13:00)
[2021-06-17] MEDS ORDERED: morphine INJ 4 MG/ML 1 ML (VIAL/SYRINGE) IV PRN ×2 (13:00)
--- NOTE | 2021-06-17 14:59 | Discharge Summary ---
Discharge Summary Hospital Course Problems/Dx: (1) Septic shock Status: Acute (2) Urinary tract infection Status: Acute Qualifiers: Qualified Codes: N39.0 - Urinary tract infection, site not specified (3) Acute kidney injury Status: Acute (4) Comfort measures only status Status: Acute (5) History of stroke Status: Chronic Hospital Course Date of Admission: Jun 17, 2021 at 10:57 Admission Diagnosis : Septic shock due to UTI Family Physician/Provider: Rodolfo Ellis DO Date of Discharge: 06/17/21 Discharge Diagnosis: Septic shock due to UTI Hospital Course: Tita Hunter is a 71 year old female with history of stroke with residual deficits who resides at [facility] and was admitted with septic shock due to urinary tract infection. She presented to the ER in multiorgan failure. She had severe acidosis, hyperkalemia, hypotension, and was unresponsive. Her made the decision to transition her to comfort measures only status. She subsequently on 06/17/2021 at 1435. Labs and Pending Lab Test: Laboratory Tests 06/17/21 08:34: Glucometer 18*L, Influenza Type A Antigen NEGATIVE, Influenza Type B Antigen NEGATIVE, SARS-CoV-2 RNA (RT-PCR) Negative 06/17/21 08:47: Urine Color YELLOW, Urine Clarity CLOUDY, Urine pH 6.5, Urine Specific [place] 1.020, Urine Protein 2+H, Urine Glucose (UA) NEGATIVE, Urine Ketones TRACEH, Urine Nitrite POSITIVEH, Urine Bilirubin NEGATIVE, Urine Urobilinogen 0.2, Urine Leukocyte Esterase 3+H, Urine RBC (Auto) 2+H, Urine RBC 2-5H, Urine WBC TNTCH, Urine Squamous Epithelial Cells 2-5, Urine Crystals NONE, Urine Bacteria LARGEH, Urine Casts NONE, Urine Mucus NEGATIVE, Urine Culture Indicated YES 06/17/21 08:50: Glucometer 160H 06/17/21 09:19: White Blood Count 34.6*H, Red Blood Count 3.91, Hemoglobin 11.2L, Hematocrit 41, Mean Corpuscular Volume 104H, Mean Corpuscular Hemoglobin 29, Mean Corpuscular Hemoglobin Concent 28L, Red Cell Distribution Width 14.7H, Platelet Count 500H, Mean Platelet Volume 10.9, Immature Granulocyte % (Auto) 5, Neutrophils (%) (Auto) 69, Lymphocytes (%) (Auto) 18, Monocytes (%) (Auto) 7, Eosinophils (%) (Auto) 1, Basophils (%) (Auto) 1, Neutrophils # (Auto) 24.1H, Lymphocytes # (Auto) 6.1H, Monocytes # (Auto) 2.5H, Eosinophils # (Auto) 0.2, Basophils # (Auto) 0.2H, Immature Granulocyte # (Auto) 1.7H, Neutrophils % (Manual) 73, Lymphocytes % (Manual) 13, Monocytes % (Manual) 5, Eosinophils % (Manual) 0, Basophils % (Manual) 0, Metamyelocytes % 1, Myelocytes % 3, Band Neutrophils 3, Reactive Lymphocytes 2, Blood Morphology Comment NORMAL 06/17/21 09:39: Coronavirus (COVID-19)(PCR) [Pending] 06/17/21 09:44: Prothrombin Time 38.9H, INR Comment 3.9H, Activated Partial Thromboplast Time 58H, D-Dimer 2.40H, Sodium Level 133L, Potassium Level 7.0*H, Chloride Level 95L , Carbon Dioxide Level < 5*L, Anion Gap 33H, Blood Urea Nitrogen 53H, Creatinine 5.02H, Estimat Glomerular Filtration Rate 8, BUN/Creatinine Ratio 11, Glucose Level 186H, Lactic Acid Level 18.70*H, Calcium Level 8.8, Corrected Calcium 9.7, Total Bilirubin 0.6, Aspartate Amino Transf (AST/SGOT) 65H, Alanine Aminotransferase (ALT/SGPT) 29, Alkaline Phosphatase 83, Troponin I 0.071H, Total Protein 6.3L, Albumin 2.9L 06/17/21 09:55: Blood Gas Puncture Site ARTLINE, Blood Gas Patient Temperature 34.2, Arterial Blood pH 6.77*L, Arterial Blood Partial Pressure CO2 14*L, Arterial Blood Partial Pressure O2 127H, Arterial Blood HCO3 2*L, Arterial Blood Total CO2 2.6*L, Arterial Blood Oxygen Saturation 96, Arterial Blood Base Excess -29.4L, Moshe Test N/A, Blood Gas Ventilator Setting NO, Blood Gas Inspired Oxygen 2 L 06/17/21 10:03: Glucometer 137H Home Meds Active Hydrocodone-Acetamin 5-325 mg (Hydrocodone/Acetaminophen) 1 Each Tablet 1 Tab PO Q6H PRN Cephalexin 500 Mg Tablet 500 Mg PO BID 3 Days Hydrocodone-Acetamin 5-325 mg (Hydrocodone/Acetaminophen) 1 Each Tablet 0.5-1 Tab PO Q6H PRN Glyburide 1.25 Mg Tablet 1.25 Mg PO DAILY Melatonin 3 Mg Tablet 3 Mg PO HS PRN Thera-M Tablet (Multivits,Ca,Minerals/Iron/FA) 1 Each Tablet 1 Ea PO DAILY@0700 Vitamin B-12 (Cyanocobalamin (Vitamin B-12)) 1,000 Mcg Tablet 1,000 Mcg PO DAILY@0700 Xanax Tablet (Alprazolam) 0.25 Mg Tab 0.25 Mg PO Q8H PRN Lipitor (Atorvastatin Calcium) 40 Mg Tablet 40 Mg PO DAILY Eliquis (Apixaban) 5 Mg Tablet 5 Mg PO BID Cefdinir 300 Mg Capsule 300 Mg PO BID Assessment/Pt Instructions Patient Discharge Planning: <30 minutes discharge planning Discharge Physical Examination Vital Signs Vital Signs Date Time Temp Pulse Resp B/P (MAP) Pulse Ox O2 Delivery O2 Flow Rate FiO2 06/17/21 14:30 98 Nasal Cannula 4.00 06/17/21 08:30 34.7 63 27 74/60 (65) Allergies: Coded Allergies: aspirin (Verified Allergy, Mild, 06/17/21) Sulfa (Sulfonamide Antibiotics) (Unverified Allergy, Unknown, 06/17/21) Copy Copies To 1: RODOLFO ELLIS DO Discharge Summary Date of Admission Jun 17, 2021 at 10:57 Date of Discharge Discharge Date: Jun 17, 2021 Discharge Time: 14:35 Admission Diagnosis Septic shock Comfort Measures/ End of Life Care: Comfort Measures Cardiopulmonary Arrest: Cardiac Arrest Date of : Jun 17, 2021 Time of : 14:35 Discharge Diagnosis (1) Septic shock Status: Acute (2) Urinary tract infection Status: Acute Qualifiers: Qualified Codes: N39.0 - Urinary tract infection, site not specified (3) Comfort measures only status Status: Acute PORFIRIO LAGUNA MD Jun 17, 2021 14:55
== END 2021-06-17 14:45 | disposition expired | DRG 951 ==
LOC: EDUNIT# 08:28 → ER 08:29 → 4TH 10:57
PROVIDERS: ADMIT Internal Medicine; ATTEND Internal Medicine
PROC: 06HN33Z Insertion of Infusion Device into Left Femoral Vein, Percutaneous Approach (ICD-10-PCS; principal; 2021-06-17)
DX: Z51.5 Encounter for palliative care (principal); A41.9 Sepsis, unspecified organism; R65.21 Severe sepsis with septic shock; N39.0 Urinary tract infection, site not specified; N17.9 Acute kidney failure, unspecified; E87.2 Acidosis; I69.354 Hemiplegia and hemiparesis following cerebral infarction affecting left non-dominant side; E87.5 Hyperkalemia; Z66 Do not resuscitate; Z20.822 Contact with and (suspected) exposure to COVID-19; G30.9 Alzheimer's disease, unspecified; F02.80 Dementia in other diseases classified elsewhere, unspecified severity, without behavioral disturbance, psychotic disturbance, mood disturbance, and anxiety; I48.91 Unspecified atrial fibrillation; J45.909 Unspecified asthma, uncomplicated; E11.649 Type 2 diabetes mellitus with hypoglycemia without coma; Z79.84 Long term (current) use of oral hypoglycemic drugs; M19.91 Primary osteoarthritis, unspecified site; Z79.01 Long term (current) use of anticoagulants; Z88.6 Allergy status to analgesic agent; Z88.2 Allergy status to sulfonamides
CPT/HCPCS: 36415; 36680; 51702; 70450; 71045; 80053; 81000; 82805; 82947; 83605; 84484; 85007; 85025; 85027; 85379; 85610; 85730; 87040; 87077; 87088; 87635; 87636; 87804; 93005; 93041